=== PATIENT | female | born 1960 | race Caucasian/White ===

== ENCOUNTER → 2017-05-23 13:49 | Outpatient (CLI) | payer OTHER, SELFPAY ==
--- NOTE | 2017-05-23 13:57 | HPBI_ITS ---
MAMMOGRAPHY - BILATERAL SCREENING REASON FOR EXAM: Female, 56 years old. Routine annual screening examination. PERTINENT HISTORY: Non-contributory. TECHNIQUE: Digital bilateral breast sergio (3D mammographic acquisition) in the CC and MLO projections. 2-D mediolateral oblique (MLO) and craniocaudad (CC) views of both breasts were obtained. CAD: Full Field Digital Mammography with Computer Added Detection was performed. COMPARISON: Comparison is made with prior study dated November 13, 2015 and June 20, 2014. FINDINGS: Breast Composition: There are scattered areas of fibroglandular density. There are no dominant masses or suspicious calcifications. No other significant abnormalities are identified. There has been no significant change since the prior study. HPBI/SCREENING MAMM (CAD), BILAT IMPRESSION: Stable bilateral screening mammogram. Yearly follow-up mammogram recommended. (A) ASSESSMENT CATEGORY: BIRADS Category 1: Negative. A letter regarding these results will be sent to the patient by the facility within 30 days. Approximately 10% of breast cancers are not detected by mammography. A normal mammogram should not delay biopsy of a clinically suspicious abnormality. [id number] Electronically Signed: Carson Platt MD at 8:48 EST Tel [phone], Service support ,
== END ==
PROVIDERS: Family Provider Family Medicine; PCP Family Medicine; Visit Provider Family Medicine
DX: Z12.31 Encounter for screening mammogram for malignant neoplasm of breast (principal)
CPT/HCPCS: 77063; 77067

== ENCOUNTER → 2017-12-30 08:51 | Outpatient (CLI) | payer OTHER, SELFPAY ==
--- NOTE | 2017-12-30 08:57 | BD_ITS ---
STUDY: DUAL ENERGY X-RAY ABSORPTIOMETRY / DXA REASON FOR EXAM: Female, 57 years old. Postmenopausal screening TECHNIQUE: Bone Mineral Density (BMD) measurements of lumbar spine and bilateral hips were obtained. COMPARISON: None. FINDINGS: Lumbar Spine (L1-L4): g/cm2 (0.923) / T-score (-2.1) / Z-score (-1.3) Findings are suggestive of osteopenia with a moderate fracture risk. Left Femur Total: g/cm2 (0.749) / T-score (-2.1) / Z-score (-1.3) Left Femoral Neck: g/cm2 (0.726) / T-score (-2.2) / Z-score (-1.2) Right Femur Total: g/cm2 (0.898) / T-score (-0.9) / Z-score (-0.2) Right Femoral Neck: g/cm2 (0.846) / T-score (-1.4) / Z-score (-0.3) BD/Dexa Bone Density Study IMPRESSION: The patient is considered osteopenic as outlined below according to World Emmanuel Organization (WHO) criteria with a moderate fracture risk. Reference Information: The T-score is the number of standard deviations above or below the standard which is normal for young adults at their peak bone mineral density. The World Health Organization (WHO) interprets the T-scores as follows: Above -1 Normal bone density Between -1 and -2.5 Osteopenia Equal to / or below -2.5 Osteoporosis As a practical clinical guideline, osteopenia may be graded as follows: Mild -1 through -1.5 Moderate -1.6 through -2.0 Severe -2.1 through -2.4 The Z-score is the number of standard deviations above or below age-matched controls. A Z-score of less than -1.5 would be considered abnormal. References: 1. NIH Osteoporosis and Related Bone Diseases http://www.osteo.org 2. International Society for Clinical Densitometry http://www.iscd.org 3. National Osteoporosis Foundation http://www.nof.org Electronically Signed: Riley Martin MD at 8:44 EDT , Service support ,
== END ==
PROVIDERS: Family Provider Family Medicine; PCP Family Medicine; Visit Provider Family Medicine
DX: Z13.228 Encounter for screening for other metabolic disorders (principal)
CPT/HCPCS: 77080

== ENCOUNTER → 2018-01-08 09:19 | Outpatient (CLI) | payer OTHER, SELFPAY ==
[2018-01-08 10:29] LABS: Anion Gap 7 (5-15); BUN 15 mg/dL (7-18); BUN/Creat Ratio 20.1 RATIO (10-20); Calcium,Total 8.7 mg/dL (8.5-10.1); Chloride 107 mmol/L (98-107); Creatinine, Serum 0.75 mg/dL (0.55-1.02); EST Glomerular Filtration Rate 85 mL/min (>60); Est Glom Filt Rate - Afr Amer 103 mL/min (>60); Glucose 84 mg/dL (74-106); Potassium 3.7 mmol/L (3.5-5.1); Sodium Level 141 mmol/L (136-145)
[2018-01-08 10:41] LABS: Vitamin D,25 Hydroxy 15.9 ng/mL (29.95-100.01)
== END ==
PROVIDERS: Family Provider Family Medicine; PCP Family Medicine; Visit Provider Family Medicine
DX: M85.80 Other specified disorders of bone density and structure, unspecified site (principal)
CPT/HCPCS: 36415; 80048; 82306

== ENCOUNTER → 2018-07-07 16:07 | Outpatient (CLI) | payer OTHER, SELFPAY ==
[2018-07-10 13:19] LABS: HPV Reflexed? NOT INDICATED
== END ==
LOC: MFPLAB 16:09 → LABSPEC 16:10
PROVIDERS: Family Provider Family Medicine; PCP Family Medicine; Referring Provider Family Medicine; Visit Provider Family Medicine
DX: Z01.419 Encounter for gynecological examination (general) (routine) without abnormal findings (principal)
CPT/HCPCS: 88175; G0145

== ENCOUNTER → 2018-11-24 14:19 | Outpatient (CLI) | payer OTHER, SELFPAY ==
[2018-11-24 16:12] LABS: Vitamin D,25 Hydroxy 14.6 ng/mL (29.95-100.01)
== END ==
PROVIDERS: Family Provider Family Medicine; PCP Family Medicine; Referring Provider Family Medicine; Visit Provider Family Medicine
DX: E55.9 Vitamin D deficiency, unspecified (principal)
CPT/HCPCS: 36415; 82306

== ENCOUNTER → 2018-11-30 15:48 | Outpatient (CLI) | payer OTHER, SELFPAY ==
--- NOTE | 2018-11-30 15:49 | BI_ITS ---
MAMMOGRAPHY - BILATERAL SCREENING REASON FOR EXAM: Female, 58 years old. Routine annual screening examination. PERTINENT HISTORY: Non-contributory. TECHNIQUE: Digital bilateral breast anthony (3D mammographic acquisition) in the CC and MLO projections. 2-D mediolateral oblique (MLO) and craniocaudad (CC) views of both breasts were obtained. CAD: Full Field Digital Mammography with Computer Added Detection was performed. COMPARISON: Comparison is made with prior examination of May 23, 2017 and November 13, 2015. FINDINGS: Breast Composition: There are scattered areas of fibroglandular density. There are no dominant masses or suspicious calcifications. No other significant abnormalities are identified. There has been no significant change since the prior study. BI/SCREEN MAMM (CAD) W/ANTHONY BILAT IMPRESSION: Stable bilateral screening mammogram. Yearly follow-up mammogram recommended. (A) ASSESSMENT CATEGORY: BIRADS Category 1: Negative. A letter regarding these results will be sent to the patient by the facility within 30 days. Approximately 10% of breast cancers are not detected by mammography. A normal mammogram should not delay biopsy of a clinically suspicious abnormality. [id number] Electronically Signed: Carson Platt, at 8:30 EDT , Service support ,
== END ==
PROVIDERS: Family Provider Family Medicine; PCP Family Medicine; Referring Provider Family Medicine; Visit Provider Family Medicine
DX: Z12.31 Encounter for screening mammogram for malignant neoplasm of breast (principal)
CPT/HCPCS: 77063; 77067

== ENCOUNTER → 2019-02-05 14:22 | Outpatient (CLI) | payer OTHER, SELFPAY ==
--- NOTE | 2019-02-05 14:38 | US_ITS ---
STUDY: ULTRASOUND BREAST - LEFT REASON FOR EXAM: Female, 58 years old. Left breast pain. TECHNIQUE: Axial and longitudinal images of the LEFT breast were performed with a high resolution ultrasound transducer. # OF IMAGES: 59 COMPARISON: Comparison is made with prior mammogram dated November 30, 2018. FINDINGS: LEFT Breast: The entire left breast was examined by ultrasound. There is homogeneous fibroglandular tissue. No sonographic abnormality is seen. US/Breast Complete Unilateral IMPRESSION: No sonographic abnormality is seen. ASSESSMENT CATEGORY: BIRADS Category 1: Negative. A letter regarding these results will be sent to the patient by the facility within 30 days. Electronically Signed: Carson Platt, at 15:42 EST , Service support ,
== END ==
PROVIDERS: Family Provider Family Medicine; PCP Family Medicine; Referring Provider Family Medicine; Visit Provider Family Medicine
DX: N64.4 Mastodynia (principal)
CPT/HCPCS: 76641

== ENCOUNTER → 2019-10-08 | Outpatient (CLI) | payer OTHER, SELFPAY ==
[2019-08-06 14:38] VITALS: BMI 24.4
[2019-10-08 17:52] LABS: Anion Gap 4 (5-15); BUN 20 mg/dL (7-18); Calcium,Total 9.4 mg/dL (8.5-10.1); Chloride 107 mmol/L (98-107); Cholesterol 230 mg/dL (200); Creatinine, Serum 0.69 mg/dL (0.55-1.02); EST Glomerular Filtration Rate 93 mL/min (>60); Est Glom Filt Rate - Afr Amer 112 mL/min (>60); Glucose 103 mg/dL (74-106); High Density Lipoprotein 65 mg/dL; Potassium 3.4 mmol/L (3.5-5.1); Sodium Level 139 mmol/L (136-145); Triglycerides 126 mg/dL; Very Low Density Lipoprotein 25 mg/dL (5-40)
[2019-10-08 17:57] LABS: Vitamin D,25 Hydroxy 26.5 ng/mL
== END | disposition home or self-care (01) ==
LOC: MFPLAB 15:20
PROVIDERS: PCP Family Medicine; Visit Provider Family Medicine
DX: I10 Essential (primary) hypertension (principal); E55.9 Vitamin D deficiency, unspecified
CPT/HCPCS: 36415; 80048; 80061; 82306

== ENCOUNTER 2019-11-02 06:45 | Day surgery (SDC) | payer OTHER, SELFPAY ==
[2019-08-06 14:38] VITALS: BMI 24.4
[2019-10-18 10:45] VITALS: BMI 24.4
--- NOTE | 2019-10-27 14:50 | EKG12_ITS ---
Test Reason : PRE OP Blood Pressure : / mmHG Vent. Rate : 067 BPM Atrial Rate : 067 BPM P-R Int : 148 ms QRS Dur : 092 ms QT Int : 422 ms P-R-T Axes : 073 052 064 degrees QTc Int : 445 ms Normal sinus rhythm Nonspecific ST abnormality Abnormal ECG Confirmed by RENETTA GRAY, DARIAN ([id number]), commissioning editor CHIQUIS HASSAN ([id number]) on 11/01/2019 9:23:38 AM Referred By: Sonia Zapata Confirmed By:DARIAN JACKSON MD
[2019-10-27 15:36] LABS: Hematocrit 43.3 % (37-47); Hemoglobin 14.4 g/dL (12.0-15.0); Mean Corp Hgb Conc 33.3 g/dL (32-36); Mean Corpuscular Volume 93.1 fL (81-99); Mean Platelet Vol. 12.5 fl (6.2-12.0); Platelet Count 206 K/mm3 (150-450); RBC Distribution Width CV 12.1 % (11.6-14.6); RBC Distribution Width SD 41.4 fl (35.1-43.9); Red Blood Count 4.65 M/mm3 (4.2-5.4); White Blood Count 9.3 K/mm3 (4.4-11.0)
[2019-10-27 16:04] LABS: Anion Gap 4 (5-15); BUN 14 mg/dL (7-18); BUN/Creat Ratio 19.9 RATIO (10-20); Calcium,Total 9.5 mg/dL (8.5-10.1); Chloride 109 mmol/L (98-107); EST Glomerular Filtration Rate 91 mL/min (>60); Est Glom Filt Rate - Afr Amer 110 mL/min (>60); Glucose 92 mg/dL (74-106); Potassium 3.8 mmol/L (3.5-5.1); Sodium Level 140 mmol/L (136-145)
[2019-10-27 16:08] LABS: Magnesium 2.4 mg/dL (1.6-2.6)
--- NOTE | 2019-11-01 06:40 | PCM.HPOB.BLA ---
- Problem List (1) Perineal insufficiency Status: Acute Comment: urogyn consult (2) Uterovaginal prolapse, incomplete Status: Acute Comment: plan TVH BS combo case with urogyn, Caleb. 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 Sonia Zapata MD) Smoking Status: Never smoker alcohol intake: current alcohol intake frequency: holidays/special occasions only substance use type: does not use caffeine: Yes what type of physical activity do you participate in: none seatbelt use: always do you feel safe at home: Yes additional social history: Caleb- retired Patient works at [employer] pre op: Details: SHERLEY KILLIAN is a 58 year old who presents for uterovaginal prolapse. Female Reproductive History Questions: Metorrhagia: No, Sexually active: Yes, Dyspareunia: No Menopausal Symptoms: No hot flashes, No night sweats, No difficulty concentrating, No change in libido Pregancy History 5 Elective abortions Hx Para 4 Spontaneous abortions Hx # Term Pregnancies Ectopic pregnancies Hx # Pregnancies Multiple births # of living children Past Pregnancies Del. Date Name GA/Weeks Outcome Route Bth Weight Infant Gen Labor Lgth Anesthesia Del Locatn Provider FOB Unknown 1991 Marino Unknown 1995 Dea Unknown 1999 Sveta Unknown 2004 Will ROS Const Constitutional: Denies fatigue, fever(s), headache(s), increased appetite, poor appetite, night sweats, weight gain or weight loss ENT ENT: Reports dizziness (last 3 days, recently started on bp medicine.); denies dry mouth Cardio Card: Denies chest pain Resp Resp: Denies cough or dyspnea GI GI: Reports as per HPI; denies abdominal pain, constipation, nausea or vomiting : Reports as per HPI and urinary urgency; denies difficulty urinating, painful urination, hot flashes, pelvic pain, urinary frequency, urinary incontinence, urinary hesitancy, vaginal discharge, vaginal dryness, vaginal odor or vaginal itching Musc Musc: Denies joint pain, back pain or muscle weakness Skin Skin/Breast: Denies hair loss, change in hair, dry skin, breast lump, breast pain or breast skin changes Neuro Neuro: Reports dizziness (last 3 days, recently started on bp medicine.) Psych Psych: Denies anxiety, change in sex drive, depression or difficulty concentrating Endo Endo: Denies cold intolerance, excessive sweating, heat intolerance or increased thirst Adam/Lymph Hematologic/Lymphatic: Denies easy bleeding, Denies easy bruising, Denies enlarged lymph nodes Exam Const General: cooperative, healthy appearing, comfortable, no acute distress, well developed Nutritional Appearance: average body habitus Orientation: alert [facility] Head: normal to inspection, normocephalic Ears: hearing grossly normal bilaterally, external ears normal Nose: external nose normal, nares normal Face and sinus: normal facial exam Neck Neck: normal visual inspection, no lymphadenopathy, trachea midline Thyroid: thyroid normal Chest Chest palpation & inspection: normal inspection of the chest Resp Effort & Inspection: normal respiratory effort Cardio Rate: regular rate Rhythm: regular rhythm GI Inspection: normal to inspection, non-distended Palpation: soft, no hepatosplenomegaly General: bladder normal to palpation External Female Exam: abnormal external appearance (perineal body disrupted by scarring from previous laceration), normal appearance of the urethra Urethra: normal appearance of the urethra Speculum Exam - Vagina: abnormal appearance of the vagina (scarring from repair), normal vaginal discharge Speculum Exam - Cervix: normal appearance of the cervix, nontender Bimanual Exam- Vagina & Uterus: bladder normal to palpation, No cervical tenderness Bimanual Exam- Adnexa, other: normal adnexae, adnexae mobile, no adnexal masses, rectocele, cystocele, vaginal apex descent Pelvic Support: cystocele, rectocele, vaginal apex descent Musc Cervical Spine: other Other: gross motor intact no deficits, full bilateral strength Skin General: no rashes or lesions noted Neuro General: alert, awake, moves all extremities, no focal motor deficits Motor: muscle tone normal throughout Extrem General: normal to inspection, no pedal edema Psych Appearance: grossly normal Mental Status: mental status grossly normal Affect: normal affect Speech and Movement: speech and movement normal Assessment & Plan Problems 1. Perineal insufficiency K45.8 urogyn consult 2. Uterovaginal prolapse, incomplete N81.2 plan TVH BS combo case with urogyn Plan After discussing the patient's diagnosis and treatment plan options, patient wishes to proceed with surgical management. I have discussed with the patient the risks, benefits, and alternatives of the procedure which include but are not limited to risks of anesthesia, bleeding, infection, possible damage to bowel, bladder, or surrounding vasculature which could lead to additional surgery to evaluate any complications. Patient agrees to procedure and wishes to proceed. ACOG/uptodate references given for additional information regarding procedure. Coding Level of Care Code No Charge Diagnoses Perineal insufficiency K45.8 Uterovaginal prolapse, incomplete N81.2 UPDATE- I have seen the patient and performed any clinically relevant updates to the history and physical exam. Sonia Zapata MD
[2019-11-02] VITALS (14 sets, daily range): BP systolic 93–142; BP diastolic 57–95; PULSE 51–82; RESP 14–16; TEMP 36–37.1; O2SAT 96–100; BMI 21.7
[2019-11-02] MEDS: Gabapentin 600 MG Tablet PO (07:38)
[2019-11-02] MEDS: Acetaminophen 500 MG Tablet 1000 MG PO ×3 (07:38→23:55)
[2019-11-02] MEDS: Scopolamine 1mg/72hr Patch 1 PATCH TRANSDERM. (07:39)
[2019-11-02] MEDS: Enoxaparin 40 MG/0.4 ML Syringe SC (07:44)
[2019-11-02] MEDS: dexAMETHasone 10 MG/ML Vial 8 MG IV (07:45)
[2019-11-02 08:16] LABS: Bedside Glucose 123 mg/dL (70-110)
[2019-11-02] MEDS: Lactated Ringers 1,000 ML 40 ML IV (08:19)
[2019-11-02] MEDS: Lactated Ringers 1,000 ML 70 ML IV ×2 (08:25→16:25)
--- NOTE | 2019-11-02 08:45 | HYST_PTH ---
PATIENT: SHERLEY KILLIAN LOC: [facility] U#:[id number] AGE/SX: 59/F ROOM: RE11/02/[address]: Dr. Sonia Zapata MD : [id number] BED: DIS: 11/03/2019 SPEC #: [id number] RECD: 11/02/19 13:48 STATUS: COOPER RICA #: [id number] TOM: 11/02/19 08:[address]: Sonia Zapata DEPT: SURGICAL PATHOLOGY RECD BY: Channing Alvarado ENTERED: 11/03/19 08:27 SP TYPE: HYSTERECT OTHR DR: MD Dr. Adan Mills MD Tissues: Uterus, NOS Procedures: Surgery Specimen Level V HEADER OPERATION: ERAS, vaginal hysterectomy, bilateral salpingectomy PRE-OP DIAGNOSIS: Perineal insufficiency, uterovaginal prolapse TISSUE SUBMITTED: Uterus and bilateral fallopian tubes MICROSCOPIC DIAGNOSIS Uterus, hysterectomy: Cervix - mild chronic inflammation. Endometrium - inactive endometrium. Myometrium - leiomyomas and superficial adenomyosis. Right fallopian tube- no pathologic change. Right fallopian tube- benign paratubal cyst. AM:aydee 11/04/19 COMMENT Case has been reviewed in consultation with Dr. Briones who concurs with the above diagnosis. IDC:SJ MICROSCOPIC DESCRIPTION Slides are reviewed. GROSS DESCRIPTION Received in fixative is one container labeled with the patient's name and designated uterus and bilateral fallopian tubes. The specimen consists of a hysterectomy specimen consisting of uterus with cervix and detached bilateral fallopian tubes. The uterus with cervix weighs 88 gm and measures 9 x 6 x 4.5 cm. The serosal surface is casas, glistening. The ectocervical mucosa is unremarkable. The external os is slit-like in contour. The endocervical canal measures 3 cm in length and the endocervical mucosa is casas, glistening and unremarkable. The triangular endometrial cavity measures 4 cm in length and 1.7 cm in width. The endometrium is casas, glistening without any mass lesion and measures 0.1 cm in thickness. Sections of the uterine wall reveal a casas, nodular mass measuring 0.7 cm in greatest dimension. The uterine wall measures up to 2 cm in thickness. The fallopian tubes are not identified as right or left. One of the fallopian tubes measure 4.5 cm in length and 0.5 cm in diameter. The fimbrial end is identified. Sections reveal unremarkable cut surfaces. The second fallopian tube measures 5 cm in length and 0.6?cm in diameter. The fimbrial end is identified. A paratubal cyst is noted measuring 2 cm in greatest dimension. It is filled with clear fluid. The cyst wall is smooth. Hydraulic Modeling Engineer sections are submitted in?nine cassettes as follows: 1 - anterior cervix, 2 - posterior cervix, 3 & 4 - anterior uterine wall, 5?&?6??posterior uterine wall, 7 - intramural nodular mass, 8 - one fallopian tube, 9 - second fallopian tube and paratubal cyst. / DAYANA:aydee 11/03/19 TC:1 CPT: 38945
--- NOTE | 2019-11-02 09:53 | PCM.OPRPT ---
Problem List (1) Perineal insufficiency Status: Acute Comment: urogyn consult (2) Uterovaginal prolapse, incomplete Status: Acute Comment: plan TVH BS combo case with urogyn, Caleb. Report of Operation Date of Procedure: 11/02/19 Pre-Operative Diagnosis: prolapse Post-Operative Diagnosis: same Surgery/Procedure Performed:: tvh bs Description of Surgical Findings:: pelvic prolapse fancy needleworker: Natalia Ramos Type of Anesthesia:: General, Local Special Medications: none Specimen's removed: uterus tubes Drains: frazier Estimated Blood Loss (mL): 50 Fluids Replaced: crystalloid Description of Procedure: Patient was taken to the operating room and was placed under general anesthesia was prepped and draped in normal sterile fashion in the dorsal lithotomy position. Preoperative antibiotics and SCDs and Frazier catheter was placed inside the bladder. Weighted speculum was placed in the vagina and the anterior and posterior lip of the cervix was grasped with 2 Елена clamps and circumferentially injected with dilute vasopressin. A circumferential incision was made with a scalpel and the posterior cul-de-sac was entered into sharply and a longneck speculum was placed. The anterior cul-de-sac was also dissected down and entered into sharply and the uterosacral ligaments were clamped cut and suture ligated bilaterally followed by the cardinal ligaments which were Clamped cut and suture ligated bilaterally with 0 Monocryl. The uterus serially descended and progressive bites were taken bilaterally up to the level of the utero-ovarian ligament bilaterally which was clamped transected and double ligated with 0 Monocryl suture and 0 Vicryl free tie. Bilateral fallopian tubes and ovaries were well visualized and noted be within normal limits and the bilateral fallopian tubes were transected across the base with a Leidy clamp and removed and sutured with 0 Vicryl suture. Excellent hemostasis was noted. Excellent hemostasis was noted. All instruments removed from the vagina clear urine was noted at the end of the procedure. see dr auguste's dictation for additional details. Grafts/Implants Used: see urogyn note - Complications none - Admit VTE Documentation VTE Present on Admission: No VTE Mechan Device Prophylaxis: SCD's VTE Pharm Prophylaxis ordered?: Yes Multi Select Codes - Urinary/Genital Urinary/Genital CPT Codes: 53972 TVH+BS/O <250gr uterus
[2019-11-02 10:14] LABS: Probe Check PASS; Specimen Processing Control PASS
--- NOTE | 2019-11-02 11:13 | DCINST_ITS ---
Discharge Diet: No Restrictions Discharge Activity: Return to Normal Activity, May Not Drive, May Shower May resume sexual activity in: 6-8 weeks Call your doctor if your incision/area has: Continuous Slow Oozing, Sudden Increased Bleeding, Increased Pain/ Swelling, Increased Redness, Foul Smelling Discharge Call your doctor if you observe: Fever of 101 or Higher, Inability to urinate, Inability to have a bowel movement, Using more than one pad per hour Allergies/Adverse Reactions: Allergies No Known Allergies Allergy (Verified 10/26/19 08:19) Medications to take at Discharge loratadine 10 mg tablet 10 mg PO DAILY 02/16/19 lisinopril 5 mg tablet 2.5 mg PO DAILY 10/18/19 Cod Liver Oil 1 ea PO DAILY 10/26/19 Naproxen [Naprosyn] 250 - 500 mg PO Q8H PRN PRN #30 tab 11/02/19 Oxycodone HCl/Acetaminophen [Percocet 5-325] 1 - 2 tab PO Q6H PRN PRN 7 Days #15 tab 11/02/19 The following prescriptions were given: Naproxen [Naprosyn] 250 - 500 mg PO Q8H PRN PRN #30 tab PRN Reason: MILD PAIN Transmission Status: Received by [facility] #[id number] Oxycodone HCl/Acetaminophen [Percocet 5-325] 1 - 2 tab PO Q6H PRN PRN 7 Days #15 tab PRN Reason: Pain Transmission Status: Received by [id number] Primary Care Physician: Adan Meza MD [Primary Care Provider] - Test Results: Test results from this visit will be discussed in further detail at your follow- up appointment, if applicable. Please Follow Up With: Sonia Zapata MD - [phone]
[2019-11-02] MEDS: Cefazolin 2 GM in 0.9% Normal Saline 100 ML IV (11:22)
[2019-11-02] MEDS: Vasopressin 20 UNITS/ML Vial (12:50)
--- NOTE | 2019-11-02 13:17 | PCM.OPRPT ---
Problem List (1) Perineal insufficiency Status: Acute Comment: urogyn consult (2) Uterovaginal prolapse, incomplete Status: Acute Comment: plan TVH BS combo case with urogyn, Caleb. Report of Operation Date of Procedure: 11/02/19 Pre-Operative Diagnosis: Incomplete uterovaginal prolapse with perineal insufficiency Post-Operative Diagnosis: Same Surgery/Procedure Performed:: Anterior repair, posterior repair with perineoplasty, cystoscopy with bilateral ureteral catheterization Type of Anesthesia:: General Specimen's removed: None Estimated Blood Loss (mL): 25 cc Description of Procedure: The patient is a 59-year-old female with pelvic organ prolapse who presented to the office for evaluation and management. She underwent physical exam, office cystoscopy and urodynamics prior to intervention and informed consent was obtained including a discussion of the risks of COVID-19. She was taken to the operating room and placed on the operating room table. Anesthesia monitored the head, neck, airway, IV access and vital signs throughout the case. Once anesthesia was appropriately ministered the patient was placed into dorsal lithotomy position was prepped and draped in usual sterile fashion. At this time Dr. Zapata removed the uterus etc. and closed the vaginal cuff. The anterior vaginal wall had a mild defect. The posterior wall had a more significant defect including decreased perineal support. At this time the anterior vaginal wall was isolated and injected submucosally with vasopressin for hydrostatic dissection and hemostatic control. A midline incision was made approximately 2 cm in length and sharp and blunt dissection was performed on either side until the pubocervical fascia was identified. This was brought together in a 2 layer closure with 2-0 Vicryl suture. The midline incision was then closed with running interlocking 2-0 Vicryl. At this time the posterior wall was isolated and injected with vasopressin as well. A midline incision was made and sharp and blunt dissection was performed on either side until the perineal body was dissected and the rectovaginal fascia was identified. The perineal body was brought together in several layers with 2-0 Vicryl interrupted suture making the area symmetrically supported. The rectovaginal fascia was then brought together also in a 2 layer closure with interrupted suture. The midline incision was closed with running interlocking 2-0 Vicryl. At this time a cystourethroscopy was performed. This was done through the urethra. Bilateral ureteral orifices were identified on the area of the trigone. The anterior defect was clearly observed to be repaired. The right ureteral orifice had significant urine output. The left ureter had less urine output and the decision was made to insert a whistle-tip catheter for evaluation of patency. The whistle-tip catheter was unable to be passed in either ureter likely secondary to the angle. A 0.035 Glidewire was passed on each side without difficulty. The patient's bladder showed no evidence of foreign body or injury in the remainder of the mucosa. The cystoscope was removed and the Miller catheter was replaced. The vagina was packed with Premarin cream and vaginal packing. The patient was awakened and taken to the recovery room in good condition. There were no complications during the procedure. Grafts/Implants Used: None - Complications None - Admit VTE Documentation VTE Present on Admission: Yes VTE Mechan Device Prophylaxis: SCD's VTE Pharm Prophylaxis ordered?: Yes
--- NOTE | 2019-11-02 13:24 | DCINST_ITS ---
Discharge Diet: No Restrictions Discharge Activity: May Not Drive, May Shower May resume sexual activity in: 8 weeks Additional Activity Instructions:: No strenuous activity or exercise, no tub bathing, swimming or hot tubs. No lifting over 5 pounds, no vacuuming. No sexual activity. Continue use of vaginal estrogen cream as prior to surgery. Call your doctor if your incision/area has: Continuous Slow Oozing, Sudden Increased Bleeding, Increased Pain/ Swelling, Increased Redness, Foul Smelling Discharge Call your doctor if you observe: Fever of 101 or Higher, Inability to urinate, Inability to have a bowel movement, Using more than one pad per hour Allergies/Adverse Reactions: Allergies No Known Allergies Allergy (Verified 10/26/19 08:19) Medications to take at Discharge loratadine 10 mg tablet 10 mg PO DAILY 02/16/19 lisinopril 5 mg tablet 2.5 mg PO DAILY 10/18/19 Cod Liver Oil 1 ea PO DAILY 10/26/19 Cephalexin [Keflex] 500 mg PO Q12 3 Days #6 cap 11/02/19 Naproxen [Naprosyn] 250 - 500 mg PO Q8H PRN PRN #30 tab 11/02/19 Oxycodone HCl/Acetaminophen [Percocet 5-325] 1 - 2 tab PO Q6H PRN PRN 7 Days #15 tab 11/02/19 The following prescriptions were given: Cephalexin [Keflex] 500 mg PO Q12 3 Days #6 cap Transmission Status: Pending to [id number] Naproxen [Naprosyn] 250 - 500 mg PO Q8H PRN PRN #30 tab PRN Reason: MILD PAIN Transmission Status: Received by [id number] Oxycodone HCl/Acetaminophen [Percocet 5-325] 1 - 2 tab PO Q6H PRN PRN 7 Days #15 tab PRN Reason: Pain Transmission Status: Received by [id number] Primary Care Physician: Adan Meza MD [Primary Care Provider] - Test Results: Test results from this visit will be discussed in further detail at your follow- up appointment, if applicable. Please Follow Up With: Cara Snow MD When: call office for appt. Proposed Discharge Date: 11/03/19
[2019-11-02] MEDS: Ketorolac 30 MG/ML Syringe IV ×2 (17:45→23:55)
[2019-11-02] MEDS: Cephalexin 500 MG Capsule PO (21:42)
[2019-11-02] MEDS: Docusate Sodium 100 MG Capsule PO (21:43)
[2019-11-03] MEDS: Ketorolac 30 MG/ML Syringe IV ×2 (04:54→11:30)
[2019-11-03] MEDS: Lactated Ringers 1,000 ML 70 ML IV (04:54)
[2019-11-03] MEDS: Acetaminophen 500 MG Tablet 1000 MG PO ×2 (04:54→11:30)
[2019-11-03 06:29] LABS: Hematocrit 36.8 % (37-47); Hemoglobin 11.7 g/dL (12.0-15.0); Mean Corp Hgb Conc 31.8 g/dL (32-36); Mean Corpuscular Hgb 30.3 pg (27.0-32.0); Mean Corpuscular Volume 95.3 fL (81-99); Mean Platelet Vol. 12.3 fl (6.2-12.0); Platelet Count 168 K/mm3 (150-450); RBC Distribution Width CV 12.5 % (11.6-14.6); RBC Distribution Width SD 43.4 fl (35.1-43.9); Red Blood Count 3.86 M/mm3 (4.2-5.4); White Blood Count 14.6 K/mm3 (4.4-11.0)
[2019-11-03 06:40] VITALS: O2SAT 97
[2019-11-03 07:32] VITALS: BP 122/71; PULSE 54; RESP 18; TEMP 36.7; O2SAT 99
--- NOTE | 2019-11-03 08:20 | PCM.PN.BLA ---
Progress Note Patient is up in bed. Tolerating PO. Walking halls. No nausea, no flatus yet. Happy to have catheter removed this morning. AF vitals are good. Abdomen soft. Miller draining clear yellow. Catheter and packing removed without an issue. SCD's in place. A/P POD#1 hysterectomy, pelvic reconstruction trial of void home later today with or without catheter continue post-op restrictions and estrogen cream STROKE Vital Signs/Narrative: Vital Signs Pulse Ox 11/03/19 06:40 97
[2019-11-03] MEDS: Cephalexin 500 MG Capsule PO (08:26)
[2019-11-03] MEDS: Docusate Sodium 100 MG Capsule PO (08:26)
[2019-11-03] MEDS: Enoxaparin 40 MG/0.4 ML Syringe SC (08:26)
[2019-11-03] MEDS: 0.9% Saline Lock 10 ML Syringe IV (11:32)
== END 2019-11-03 11:50 | disposition home or self-care (01) ==
LOC: SDC 06:46 → AC 06:47 → MS3 11-03 09:34
PROVIDERS: Anesthesiology; Urology; PCP Family Medicine; Referring Provider Obstetrics & Gynecology; Visit Provider Obstetrics & Gynecology
PROC: (CPT 58260; principal; 2019-11-02 08:25)
PROC: (CPT 57260; 2019-11-02 08:25)
DX: D25.9 Leiomyoma of uterus, unspecified (principal); N81.2 Incomplete uterovaginal prolapse; N80.0 Endometriosis of uterus; N83.8 Other noninflammatory disorders of ovary, fallopian tube and broad ligament; N72 Inflammatory disease of cervix uteri; N95.2 Postmenopausal atrophic vaginitis; N39.41 Urge incontinence; N94.10 Unspecified dyspareunia; Z79.899 Other long term (current) drug therapy
CPT/HCPCS: 56810; 57260; 58262; 36415; 80048; 82962; 83735; 85027; 86850; 86900; 86901; 87635; 88307; 93005; 94762; 94799; 99251; J7120; A4216; C1758; C1769; G0463; J2405; U0003

== ENCOUNTER 2020-06-06 09:07 | Outpatient (RCR) | payer OTHER, SELFPAY ==
[2019-11-15 15:05] VITALS: BMI 22.0
[2020-06-06] MEDS: COVID-19 VACC, MRNA(PFIZER)/PF 30 MCG/0.3 ML SYRINGE IM (16:56)
[2020-06-27] MEDS: COVID-19 VACC, MRNA(PFIZER)/PF 30 MCG/0.3 ML SYRINGE IM (16:28)
== END 2020-08-29 23:59 ==
LOC: IMMUN 09:07
PROVIDERS: PCP Family Medicine; Visit Provider Family Medicine
DX: Z23 Encounter for immunization (principal)
CPT/HCPCS: 0001A; 0002A; 91300

== ENCOUNTER 2021-03-15 16:37 | Emergency (ER) | payer OTHER, SELFPAY ==
[2021-03-15 16:38] VITALS: BP 168/100; PULSE 95; RESP 16; TEMP 37.2; O2SAT 100; BMI 23.3
--- NOTE | 2021-03-15 16:49 | CT_ITS ---
We are attempting to reach an attending provider to discuss findings. An addendum with communication details will be sent when the communication is complete. STUDY: CT ABDOMEN AND PELVIS WITH CONTRAST REASON FOR EXAM: Female, 60 years old. LLQ abdominal pain RADIATION DOSAGE (If Supplied By Facility): CTDIvol = ( 9.26 ) mGy, DLP = ( 420.68 ) mGycm TECHNIQUE: Transaxial images were obtained from the dome of the diaphragm to the symphysis pubis without oral contrast. IV 100mL Isovue-370 was administered. Sagittal and coronal images were reconstructed. N Individualized dose optimization techniques were used for this CT. COMPARISON: 04/24/2010 FINDINGS: The visualized lung bases are unremarkable. The visualized portions of the heart are within normal limits. Liver is normal size. There are multiple scattered cysts of varying sizes. Bile ducts are nondilated.. Normal gallbladder and extrahepatic biliary system. Normal spleen. Normal pancreas. Normal bilateral adrenal glands. No evidence for renal obstruction. Tiny cortical cyst in left kidney Normal visualized stomach. Normal small intestine. . There are scattered diverticular changes. There is focal concentric thickening of the hutton of the mid descending colon with stranding in the fat consistent with acute diverticulitis. There is no peridiverticular abscess.. The appendix is visualized and appears normal. Normal abdominal aorta. Normal inferior vena cava. Normal retroperitoneum. Incompletely distended thick-walled bladder likely of no significance. Uterus not visualized consistent with hysterectomy Normal abdominal wall. Normal osseous structures. CT/Abdomen/Pelvis W IV Cont ONLY IMPRESSION: Findings consistent with acute diverticulitis of the descending colon without evidence for peridiverticular abscess. Multiple scattered hepatic cysts.. Tiny left renal cyst Electronically Signed: Milton Marie MD at 18:15 EST , Service support ,
--- NOTE | 2021-03-15 16:50 | EDS_ITS ---
HPI HPI - GI History of Present Illness Chief Complaint: Abd Pain Narrative Narrative: 60-year-old female presenting with left lower quadrant abdominal pain. She states that this started yesterday. She states that at times the pain is difficult to talk through and she rates this is an 8. Other times she feels cramping which is mild. Patient denies nausea, vomiting diarrhea. She states that she has not felt like eating today and that she had chills. Patient denies urinary symptoms. She also admits to a temperature of 99.0 Fahrenheit at home today. PFSH PFSH Home Medications loratadine 10 mg tablet 10 mg PO DAILY 02/16/19 [History Last Taken Unknown] lisinopril 5 mg tablet 2.5 mg PO DAILY 10/18/19 [History Last Taken 11/02/19 04:55 2.5 MG] cod liver oil 1 ea PO DAILY 10/26/19 [History Last Taken Unknown] amoxicillin-pot clavulanate [Augmentin] 1 tab PO BID #20 tab 03/15/21 [Rx Last Taken Unknown] Allergy/AdvReac Type Severity Reaction Status Date / Time No Known Allergies Allergy Verified 03/15/21 16:41 Family History Father Heart disease Mother Heart disease Surgical History History of cystoscopy History of total vaginal hysterectomy (TVH) Hx of bilateral salpingectomy Social History (Updated 11/15/19 @ 15:38 by Jina Bolaños NP, [employer]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 [facility] [place] ED Constitutional Constitutional ED: Reports chills; Denies fever(s) ENT ENT ED: Denies rhinorrhea or sore throat Cardiovascular Cardiovascular: Denies chest pain or palpitations Respiratory/Chest Respiratory/Chest: Denies cough or dyspnea Gastrointestinal Gastrointestinal: Reports abdominal pain; Denies constipation, diarrhea, nausea or vomiting Genitourinary Genitourinary ED: Denies dysuria or hematuria Musculoskeletal Musculoskeletal: Denies back pain, myalgias or neck pain Integumentary Denies rash Neurologic Neurologic: Denies headache(s) or paresthesias Psychiatric Psychiatric: Denies anxiety or depression EXAM Physical Exam Const Vital Signs: 03/15/21 16:38 03/15/21 18:48 Temperature 98.9 F Temperature Source Oral Pulse Rate 95 70 Respiratory Rate 16 18 Blood Pressure 168/100 H 169/90 H Blood Pressure Mean 122 Pulse Ox 100 94 Oxygen Delivery Method Room Air Positive well nourished General Appearance ED: NAD; Negative for pallor HEENT Reports moist mucous membranes normocephalic and atraumatic Eyes PERRL and EOMs intact bilaterally General Eye ED: Negative for pale conjunctiva or scleral icterus Resp normal respiratory effort and clear to auscultation bilaterally Cardio regular rate and regular rhythm GI non-distended Palpation: soft and tender LLQ Back/Spine no CVA tenderness Neuro CN's II-XII intact bilaterally and moves all extremities Sensorium / Orientation: alert, oriented to person, oriented to place and oriented to time Psych mental status grossly normal and thought process normal Skin General Skin Exam: Negative for jaundice or pallor Rashes: no rashes MDM MDM MDM Narrative Medical decision making narrative: Patient presenting with left lower quadrant pain. Abdomen is nonperitoneal on examination. Blood work-up shows a slight leukocytosis at 12.0. Hemoglobin hematocrit are stable. Renal function electrolytes are normal. LFTs are also normal. Urinalysis negative for infection. I did obtain a CT of the abdomen pelvis out of concern for diverticulitis and the radiologist did call me and reported that she had an acute on complex diverticulitis. Patient declined analgesia in the ER. I believe she is a good candidate for home Augmentin. She is given her first dose in the ER. She is given return precautions. She was given referral for Dr. Daugherty for follow-up as needed. Impression: 1. Acute diverticulitis Lab Data Attestation: I reviewed the patient's lab results. Labs: Laboratory Results - last 24 hr 03/15/21 03/15/21 03/15/21 16:58 16:58 17:10 WBC 12.0 H RBC 4.57 Hgb 14.2 Hct 42.5 MCV 93.0 MCH 31.1 MCHC 33.4 RDW Std Deviation 43.0 RDW Coeff of Albina 12.5 Plt Count 234 MPV 11.2 Immature Gran % (Auto) 0.200 Neut % (Auto) 77.6 H Lymph % (Auto) 14.8 L Alger % (Auto) 6.5 Eos % (Auto) 0.5 Baso % (Auto) 0.4 Absolute Neuts (auto) 9.3 H Absolute Lymphs (auto) 1.77 Nucleated RBC % 0 Sodium 141 Potassium 3.7 Chloride 105 Carbon Dioxide 29.0 Anion Gap 7 BUN 14 Creatinine 0.67 Estim Creat Clear Calc 84.64 Est GFR (MDRD) Af Amer 116 Est GFR (MDRD) Non-Af 96 BUN/Creatinine Ratio 20.9 H Glucose 101 Calcium 9.2 Total Bilirubin 0.60 AST 16 ALT 29 Alkaline Phosphatase 59 Total Protein 8.1 Albumin 4.1 Globulin 4.0 Albumin/Globulin Ratio 1.0 Urine Color Yellow Urine Clarity Sl. Cloudy Urine pH 5.0 Ur Specific Lusk 1.020 Urine Protein Negative Urine Glucose (UA) Normal Urine Ketones 5 H Urine Occult Blood 25 H Urine Nitrite Negative Urine Bilirubin Negative Urine Urobilinogen Normal Ur Leukocyte Esterase 25 H Urine RBC 0-5 SEEN Urine WBC 0-5 SEEN Ur Squamous Epith Cells 0-5 SEEN Urine Bacteria 0 SEEN Urine Mucus 0 SEEN Radiography Diagnostic Testing: Clinical Impression(s) from Imaging Studies Abdomen/Pelvis CT 03/15/21 16:49 IMPRESSION: Findings consistent with acute diverticulitis of the descending colon without evidence for peridiverticular abscess. Multiple scattered hepatic cysts.. Tiny left renal cyst Electronically Signed: Milton Marie MD at 18:15 EST , Service support , ADDENDUM: 03/15/21 1836 IMPRESSION: Findings consistent with acute diverticulitis of the descending colon without evidence for peridiverticular abscess. Multiple scattered hepatic cysts.. Tiny left renal cyst N.B. : The above Results were Read Back by Milton Marie MD to Dr Sanjeev MD, and understanding confirmed on 03/15/2021 18:29:14 (ET). Electronically Signed: Milton Marie MD at 18:15 EST , Service support , Discharge Plan Triage Chief Complaint: Abd Pain ED Provider: Dalton Pace Dx/Rx/DC Orders Instructions: ED Diverticulitis Prescriptions: New amoxicillin-pot clavulanate [Augmentin] 875-125 mg tablet 1 tab PO BID Qty: 20 RF: 0 No Action loratadine [Claritin] 10 mg tablet 10 mg PO DAILY RF: 0 lisinopril 5 mg tablet 2.5 mg PO DAILY RF: 0 cod liver oil 1 EACH capsule 1 ea PO DAILY RF: 0 Primary Care Provider: Fernando Egan Referrals: Wing Daugherty DO [STAFF PHYSICIAN] - As Needed Fernando Egan MD [Primary Care Provider] - Disposition Disposition: Home, Self Care Discharge Date/Time: 03/15/21 18:51
[2021-03-15 17:22] LABS: Absolute Lymphocyte Count 1.77 X10^3/uL (0.83-4.51); Absolute Neutrophil Count 9.3 X10^3/uL (2.0-7.7); Basophil# 0.05 X10^3/uL; Basophil% 0.4 % (0-1); Eosinophil# 0.06 X10^3/uL; Eosinophils% 0.5 % (0-5); Hematocrit 42.5 % (37-47); Hemoglobin 14.2 g/dL (12.0-15.0); Lymphocyte # 1.77 X10^3/ul (0.83-4.51); Lymphocyte % 14.8 % (19-41); Mean Corp Hgb Conc 33.4 g/dL (32-36); Mean Corpuscular Hgb 31.1 pg (27.0-32.0); Mean Platelet Vol. 11.2 fl (6.2-12.0); Monocyte# 0.78 X10^3/uL; Monocyte% 6.5 % (0-10); NRBC Flagged by Analyzer 0 % (0-5); Neutrophil # 9.28 X10^3/uL (2.7-7.7); Neutrophil % 77.6 % (47-70); Platelet Count 234 K/mm3 (150-450); RBC Distribution Width CV 12.5 % (11.6-14.6); Red Blood Count 4.57 M/mm3 (4.2-5.4)
[2021-03-15 17:23] LABS: Bacteria 0 SEEN /hpf (None Seen); Mucous, Urine 0 SEEN /hpf (<or=2+)
[2021-03-15 17:28] LABS: AST(SGOT) 16 U/L (15-37); Alanine Aminotransfer ALT/SGPT 29 U/L (13-56); Albumin, Serum 4.1 g/dL (3.2-5.0); Alkaline Phosphatase 59 U/L (45-117); Anion Gap 7 (5-15); BUN 14 mg/dL (7-18); BUN/Creat Ratio 20.9 RATIO (10-20); Calcium,Total 9.2 mg/dL (8.5-10.1); Chloride 105 mmol/L (98-107); Creatinine, Serum 0.67 mg/dL (0.55-1.02); EST Glomerular Filtration Rate 96 mL/min (>60); Est Glom Filt Rate - Afr Amer 116 mL/min (>60); Estimated Creatinine Clearance 84.64 ml/min; Glucose 101 mg/dL (74-106); Potassium 3.7 mmol/L (3.5-5.1); Protein, Total 8.1 g/dL (6.4-8.2); Sodium Level 141 mmol/L (136-145)
[2021-03-15 17:34] LABS: Color, Urine Yellow (Yellow); Glucose, Dipstick Normal (Normal); Ketone-Dipstick 5 mg/dl (Negative); Leukocyte Esterase-Dipstick 25 /ul (Negative); Nitrite-Dipstick Negative (Negative); Occult Blood-Urine 25 /ul (Negative); Protein-Dipstick Negative (Negative); Urine Bilirubin Dipstick Negative (Negative); Urine Clarity Sl. Cloudy (Clear); Urine Urobilinogen Normal (Normal)
[2021-03-15 17:49] LABS: Red Blood Cells-Urine 0-5 SEEN /hpf (0-5); Squamous Epithelial Cells - UA 0-5 SEEN /hpf (5-10); White Blood Cells 0-5 SEEN /hpf (0-5)
[2021-03-15 18:48] VITALS: BP 169/90; PULSE 70; RESP 18; O2SAT 94
== END 2021-03-15 18:51 | disposition home or self-care (01) ==
PROVIDERS: Emergency Provider Student in an Organized Health Care Education/Training Program; PCP Family Medicine
DX: K57.32 Diverticulitis of large intestine without perforation or abscess without bleeding (principal)
CPT/HCPCS: 74177; 80053; 81001; 85025; 99284; Q9967

== ENCOUNTER 2022-04-01 16:58 | Emergency (ER) | payer OTHER, SELFPAY ==
[2022-04-01 16:59] VITALS: BP 182/93; PULSE 83; RESP 18; TEMP 36.6; O2SAT 100; BMI 22.6
[2022-04-01 18:29] LABS: Absolute Lymphocyte Count 1.51 X10^3/uL (0.83-4.51); Absolute Neutrophil Count 9.1 X10^3/uL (2.0-7.7); Basophil# 0.05 X10^3/uL; Basophil% 0.4 % (0-1); Eosinophil# 0.05 X10^3/uL; Eosinophils% 0.4 % (0-5); Hemoglobin 14.5 g/dL (12.0-15.0); Lymphocyte # 1.51 X10^3/ul (0.83-4.51); Lymphocyte % 13.2 % (19-41); Mean Corp Hgb Conc 34.5 g/dL (32-36); Mean Corpuscular Hgb 31.9 pg (27.0-32.0); Mean Corpuscular Volume 92.5 fL (81-99); Monocyte# 0.75 X10^3/uL; Monocyte% 6.6 % (0-10); NRBC Flagged by Analyzer 0 % (0-5); Neutrophil # 9.05 X10^3/uL (2.7-7.7); Neutrophil % 79.1 % (47-70); Platelet Count 221 K/mm3 (150-450); RBC Distribution Width CV 12.4 % (11.6-14.6); RBC Distribution Width SD 42.1 fl (35.1-43.9); Red Blood Count 4.54 M/mm3 (4.2-5.4); White Blood Count 11.5 K/mm3 (4.4-11.0)
[2022-04-01 18:48] LABS: ALB/GLOB Ratio 1.1 RATIO (0.9-2.4); AST(SGOT) 10 U/L (15-37); Alanine Aminotransfer ALT/SGPT 25 U/L (13-56); Albumin, Serum 4.1 g/dL (3.2-5.0); Alkaline Phosphatase 66 U/L (45-117); Anion Gap 8 (5-15); BUN 13 mg/dL (7-18); BUN/Creat Ratio 17.7 RATIO (10-20); Calcium,Total 9.7 mg/dL (8.5-10.1); Chloride 105 mmol/L (98-107); Creatinine, Serum 0.74 mg/dL (0.55-1.02); EST Glomerular Filtration Rate 86 mL/min (>60); Est Glom Filt Rate - Afr Amer 104 mL/min (>60); Estimated Creatinine Clearance 75.68 ml/min; Globulin 3.9 g/dL (2.2-4.2); Glucose 106 mg/dL (74-106); Potassium 4.2 mmol/L (3.5-5.1); Sodium Level 140 mmol/L (136-145)
--- NOTE | 2022-04-01 19:36 | ED.VIS.GI ---
HPI HPI - GI History of Present Illness Chief Complaint: Abd Pain Informant: patient Narrative Narrative: Sent in for waxing waning left lower quadrant abdominal pain last 24 hours subjective fevers today. No vomiting no diarrhea normal bowel movements daily. Nonbloody stools. History of similar diverticulitis 2020 treated with antibiotics. She follow-up with her PCP and was told to wait for her colonoscopy until this year. She had a colonoscopy at the age of 51. No allergies. Prior similar symptoms: Yes PFSH PFSH Home Medications loratadine 10 mg tablet (Claritin) 10 mg PO DAILY 02/16/19 [History Last Taken Unknown] lisinopril 5 mg tablet 2.5 mg PO DAILY 10/18/19 [History Last Taken 11/02/19 04:55 2.5 MG] cod liver oil 1 ea PO DAILY 10/26/19 [History Last Taken Unknown] amoxicillin 875 mg-potassium clavulanate 125 mg tablet (Augmentin) 1 tab PO BID #20 tabs 03/15/21 [Rx Last Taken Unknown] amoxicillin 875 mg-potassium clavulanate 125 mg tablet 1 tab PO BID #20 tabs 04/01/22 [Rx Last Taken Unknown] Allergy/AdvReac Type Severity Reaction Status Date / Time No Known Allergies Allergy Verified 03/15/21 16:41 Family History Father Heart disease Mother Heart disease Surgical History History of cystoscopy History of total vaginal hysterectomy (TVH) Hx of bilateral salpingectomy Social History Smoking Status: Never smoker alcohol intake: current alcohol intake frequency: holidays/special occasions only substance use type: does not use caffeine: Yes what type of physical activity do you participate in: none seatbelt use: always do you feel safe at home: Yes additional social history: Caleb- retired Patient works at [employer] ED Constitutional Constitutional ED: Reports fever(s); Denies chills or sweats Eyes Eyes: Denies change in vision ENT ENT ED: Denies dysphagia or sore throat Cardiovascular Cardiovascular: Denies chest pain, leg edema, palpitations or racing heartbeat Respiratory/Chest Respiratory/Chest: Denies cough, dyspnea or dyspnea on exertion Gastrointestinal Gastrointestinal: Reports abdominal pain; Denies diarrhea, nausea or vomiting Genitourinary Genitourinary ED: Denies dysuria, hematuria or urinary frequency Musculoskeletal Musculoskeletal: Denies back pain, extremity pain or neck pain Integumentary Denies rash or wounds Neurologic Neurologic: Denies headache(s), paresthesias or weakness EXAM Physical Exam Const Vital Signs: 04/01/22 16:59 Temperature 98 F Temperature Source Temporal Pulse Rate 83 Respiratory Rate 18 Blood Pressure 182/93 H Blood Pressure Mean 122 Pulse Ox 100 Oxygen Delivery Method Room Air Positive well nourished and well developed General Appearance ED: well developed and NAD HEENT Reports moist mucous membranes normocephalic and atraumatic Eyes PERRL, EOMs intact bilaterally and conjunctivae normal General Eye ED: Yes normal appearance of both eyes Neck no lymphadenopathy and supple General: Negative for tenderness Chest Wall Chest: Negative for tenderness Resp normal respiratory effort and normal air movement Effort and Inspection: symmetric chest movement; Negative for respiratory distress Cardio regular rate, regular rhythm and no murmurs Peripheral Pulses: pulses 2+ throughout GI normal to inspection, nondistended, normoactive bowel sounds GI Narrative: Mild tenderness left lower quadrant there is no guarding or rebound. Negative Zimmerman's or McBurney's tenderness. Palpation: Negative for guarding or rebound tenderness present Back/Spine no CVA tenderness and no thoracic nor lumbar tenderness Extremity normal to inspection General Extremety ED: Negative for edema or tenderness General Extremity: Negative for edema Neuro oriented x3 and no sensory deficits noted Sensorium / Orientation: awake and alert Skin no rashes or lesions noted and no wounds MDM MDM MDM Narrative Medical decision making narrative: Patient work-up started in triage due to busy department. Laboratory studies obtained and reviewed by myself noted white count 11.5. Clinically nonsurgical abdomen. She has left lower quadrant pain with history of similar with diverticulitis this is high on differential. There is no clinical signs of perforation. Differential includes UTI however has no symptoms either. No clinical concerns for appendicitis or cholecystitis. She reports symptoms improved 24 hours after antibiotics. From review of records from February 2021 she had diagnosis doctor on CT treat with Augmentin. She declines any pain medicines. She started on Augmentin. She is given follow-up with GI. Strict return precaution discussed. All questions were answered. Lab Data Attestation: I reviewed the patient's lab results. Labs: Laboratory Results - last 24 hr 04/01/22 04/01/22 18:25 18:25 WBC 11.5 H RBC 4.54 Hgb 14.5 Hct 42.0 MCV 92.5 MCH 31.9 MCHC 34.5 RDW Std Deviation 42.1 RDW Coeff of Albina 12.4 Plt Count 221 MPV 11.0 Immature Gran % (Auto) 0.300 Neut % (Auto) 79.1 H Lymph % (Auto) 13.2 L Nolan % (Auto) 6.6 Eos % (Auto) 0.4 Baso % (Auto) 0.4 Absolute Neuts (auto) 9.1 H Absolute Lymphs (auto) 1.51 Nucleated RBC % 0 Sodium 140 Potassium 4.2 Chloride 105 Carbon Dioxide 27.0 Anion Gap 8 BUN 13 Creatinine 0.74 Estim Creat Clear Calc 75.68 Est GFR (MDRD) Af Amer 104 Est GFR (MDRD) Non-Af 86 BUN/Creatinine Ratio 17.7 Glucose 106 Calcium 9.7 Total Bilirubin 0.60 AST 10 L ALT 25 Alkaline Phosphatase 66 Total Protein 8.0 Albumin 4.1 Globulin 3.9 Albumin/Globulin Ratio 1.1 Discharge Plan Triage Chief Complaint: Abd Pain ED Provider: Conner Andrea Dx/Rx/DC Orders Clinical Impression: Diverticulitis, Abdominal pain, LLQ Instructions: Diverticulitis Dc Prescriptions: New amoxicillin-pot clavulanate 875-125 mg tablet 1 tab PO BID Qty: 20 0RF No Action loratadine [Claritin] 10 mg tablet 10 mg PO DAILY lisinopril 5 mg tablet 2.5 mg PO DAILY cod liver oil 1 EACH capsule 1 ea PO DAILY amoxicillin-pot clavulanate [Augmentin] 875-125 mg tablet 1 tab PO BID Qty: 20 0RF Primary Care Provider: Fernando Egan Referrals: Wing Daugherty DO [Med Staff - Active Staff] - 1-2 Weeks Fernando Egan MD [Primary Care Provider] - Activity Restrictions/Additional Instructions: You are being treated for clinical diverticulitis. White count 11. Take antibiotic as prescribed use Tylenol or ibuprofen. Return if any worsening symptoms. Follow-up with GI as an outpatient for plan colonoscopy. Disposition Disposition: Home, Self Care Discharge Date/Time: 04/01/22 19:43
[2022-04-01] MEDS: Amox/Clavulanate 875 MG Tablet PO (19:40)
== END 2022-04-01 19:43 | disposition home or self-care (01) ==
LOC: ED 19:39
PROVIDERS: Emergency Provider Emergency Medicine; PCP Family Medicine; Visit Provider Emergency Medicine
DX: K57.92 Diverticulitis of intestine, part unspecified, without perforation or abscess without bleeding (principal); R10.32 Left lower quadrant pain
CPT/HCPCS: 80053; 85025; 99284

== ENCOUNTER → 2022-10-03 | Outpatient (CLI) | payer OTHER, SELFPAY ==
--- NOTE | 2022-10-02 | TOBX_PTH ---
PATIENT: SHERLEY KILLIAN LOC: [facility] U#:[id number] AGE/SX: 61/F ROOM: RE10/03/[address]: Dr. Silver Witt DDS : 1960 BED: DIS: 10/03/2022 SPEC #: [id number] RECD: 10/03/22 10:02 STATUS: COOPER RICA #: [id number] TOM: 10/02/22 00:[address]: Silver Witt DEPT: SURGICAL PATHOLOGY RECD BY: Tad Aleman ENTERED: 10/03/22 13:10 SP TYPE: TONGUE BX OTHR DR: Dr. Fernando Egan MD Tissues: Tongue, NOS Procedures: Surgery Specimen Level IV HEADER OPERATION: Biopsy tongue PRE-OP DIAGNOSIS: Inflamed papilla TISSUE SUBMITTED: Tongue biopsy MICROSCOPIC DIAGNOSIS Tongue, biopsy: Squamous papilloma. SJ: 10/04/22 COMMENT Focal bacterial colonization is noted at surface of the lesion. Case has been reviewed in consultation with Dr. Fuentes who concurs with the above diagnosis. IDC:AM MICROSCOPIC DESCRIPTION Slides are reviewed. GROSS DESCRIPTION Received in fixative is one container labeled with the patient's name and designated tongue biopsy. The specimen consists of one irregular fragment of light casas soft tissue that measures 0.4 x 0.1 x 0.1 cm. The specimen is totally submitted in one cassette. /SJ:dontae 10/03/22 TC: 1 CPT:57268
== END | disposition home or self-care (01) ==
LOC: LABSPEC 10:14
PROVIDERS: PCP Family Medicine; Referring Provider Dentist Oral and Maxillofacial Surgery; Visit Provider Dentist Oral and Maxillofacial Surgery
DX: D10.1 Benign neoplasm of tongue (principal)
CPT/HCPCS: 88305

== ENCOUNTER → 2024-11-24 | Outpatient (CLI) | payer OTHER, SELFPAY ==
--- NOTE | 2024-11-24 06:20 | CT_ITS ---
PROCEDURE: ABDOMEN/PELVIS WITH CONTRAST 11/24/2024 REASON FOR EXAM: LLQ PAIN, DIVERTICULITIS TECHNIQUE: Procedure Code: [id number] Modality: CT Procedure: ABDOMEN/PELVIS WITH CONTRAST Coronal and Sagittal reconstruction series were provided. CONTRAST: Isovue 370 VOLUME: 96 mL One or more dose reduction techniques were used (e.g., Automated exposure control, adjustment of the mA and/or kV according to patient size, use of iterative reconstruction technique. RADIATION DOSE SUMMARY: CTDlvol: 39.8 mGy DLP: 541.89 mGycm COMPARISON: CT abdomen and pelvis with IV contrast, 03/15/2021. FINDINGS: Lung bases: The lung bases are clear. There are no pleural effusions. The heart size is normal. There is no pericardial effusion. There is no calcific vascular disease of the coronary arteries evident. Liver: There are multiple stable low-density nodules throughout the liver consistent with hepatic cysts. Gallbladder: Normal. Spleen: Normal size. Pancreas: Normal size without evidence of mass surrounding inflammation or ductal dilation. Adrenals: Normal. Kidneys: Normal renal sizes. No hydronephrosis. There are cortical cysts in both kidneys. Bladder: Normal unenhanced appearance. Reproductive Organs: The uterus is surgically absent. The ovaries are unremarkable. There is no free fluid in the pelvis. There is no inguinal lymphadenopathy. Bowel: There are scattered colonic diverticuli without evidence of acute inflammation. There is stool throughout the colon. Appendix: Normal. Lymph nodes: There is increased attenuation of the central mesenteric fat with associated reactive lymph nodes consistent with sclerosing mesenteritis. There is no significant retroperitoneal or pelvic lymphadenopathy. Vasculature: Mild diffuse atherosclerotic calcifications are noted. Peritoneum / Retroperitoneum/abdominal wall: There are no abnormal intra or retroperitoneal masses or fluid collections. There are no abdominal wall defects. Status post left mastectomy. Bones: There are no significant bony abnormalities. There is mild levoscoliosis of the lumbar spine. CT/Abdomen/Pelvis WITH Contrast IMPRESSION: 1. Colonic diverticulosis without diverticulitis. 2. Mild constipation. 3. Hepatic and renal cysts. 4. Findings of sclerosing mesenteritis. 5. Other findings as noted. Reading Location: [id number]
--- OUTSIDE RECORDS SUMMARY | 2024-11-24 06:21 | XMS RPT_ITS | CCD ---
Author Organization [facility] Care Team Providers Care Supervisor [employer] Name Role Phone Helder Egan MD Primary Care Provider Yuki DO, Ramanpreet Unavailable Unavailable Primary Care Provider UnavailNONA Tsai Referring Unavailable HELDER EGAN Primary Care Unavailab shakeel Lion MD, Kimberlee Unavailable Helder Egan MD Primary Care Provider Tommy GRAY, PhD, Ross Carranza Primary Care Provider Yuki DO, Ramanpreet Unavailable Tommy GRAY, PhD, Ross Tere Primary Care Provider [phone] Bill Eugene MD Unavailable HENNY HENRY Attending Unavailable MK SCOTT Referring Unavailable JIN, ROSS TERE Primary Care Unavailable JIN, ROSS TERE Primary Care Unavailable HENNY HENRY Attending Unavailable MK SCOTT Referring Unavailable JIN, ROSS TERE Primary Care Unavailable MK SCOTT Attending Unavailable JIN, ROSS TERE Primary Care Unavailable KIMBERLEE LION Referring Unavailable BRUNA NATHAN Attending Unavailable JIN, ROSS TERE Primary Care Unavailable BRUNA NATHAN Attending Unavailable JIN, ROSS TERE Primary Care Unavailable ARLEEN GARZA Attending Unavailable JIN, ROSS TERE Primary Care Unavailable MORELIA MILLS Referring Unavailable JIN, ROSS TERE Primary Care Unavailable SELF Referring Unavailable MK SCOTT Attending Unavailable JIN, ROSS TERE Primary Care Unavailable KIMBERLEE LION Referring Unavailable JIN, ROSS TERE Primary Care Unavailable PETTY SHEA Referring Unavai lable JIN, ROSS TERE Primary Care Unavailable SELF Referring Unavailable PETTY SHEA Attending Biju lr JIN, ROSS TERE Primary Care Unavailable ONGER, KIMBERLEE Referring Unavailable JIN, ROSS TERE Primary Care Unavailable JIN, ROSS TERE Primary Care Unavailable ONGER, KIMBERLEE Referring Unavailable ONGER, IKMBERLEE Attending Unavailable JIN, ROSS TERE Primary Care Unavailable LUZ CASTILLO Attending Unavailable JIN, ROSS TERE Primary Care Unavailable PERSITS, JOHN Referring Unavailable JIN, ROSS TERE Primary Care Unavailable JIN, ROSS TERE Primary Care Unavailable PERSITS, JOHN Referring Unavailable JIN, ROSS TERE Primary Care Unavailable PERSITS, JOHN Referring Unavailable JIN, ROSS TERE Primary Care Unavailable MK SCOTT Attending Unavailable JIN, ROSS TERE Primary Care Unavailable ONGER, KIMBERLEE Referring Unavailable JIN, ROSS TERE Primary Care Unavailable JIN, ROSS TERE Referring Unavailable JIN, ROSS TERE Primary Care Unavailable PERSITS, JOHN Referring Unavailable JIN, ROSS TERE Primary Care Unavailable PERSITS, JOHN Referring Unavailable MORELIA MILLS Attending Unavailable Fernando Singh Primary Care UnavailSilver Macario Referring Unavailable Silver Chirinos Attending Unavailable Allergies Allergy Classification Reported Allergen(s) Allergy Type Date of Onset Reaction(s) Facility (20 sources) Seasonal allergy; Translations: [SEASONAL ALLERGIES] Allergy to substance Other: See Comments [facility] Medications Current Medications Medication Drug Class(es) Dates Sig (Normalized) Sig (Original) alendronic acid 70 mg oral tablet (20 sources) Bisphosphonate Start: 07-15-2023 End: 05-31-2024 alendronate (FOSAMAX) 70 mg tablet PLEASE SEE ATTACHED FOR DETAILED DIRECTIONS 12 tablet 1 05/31/2024 Active amoxicillin 875 mg / clavulanate 125 mg oral tablet (4 sources) Penicillin-class Antibacterial Start: 04-01-2022 take 1 tablet by mouth twice daily Amoxicillin-Pot Clavulanate Active 1 TABLET PO TWICE A DAY April 01, 2022 1:00am Start: 03-15-2021 take 1 tablet by jalen th twice daily Amoxicillin-Pot Clavulanate (Augmentin) 875-125 mg tablet Active 1 TABLET PO TWICE A DAY March 15, 2021 1:00am anastrozole 1 mg oral tablet (20 sources) Aromatase Inhibitor Start: 01-23-2023 End: 01-08-2025 take 1 tablet by mouth once daily anastrozole (ARIMIDEX) 1 mg tablet Indications: Cancer of breast, intraductal, left Take 1 tablet by mouth once daily. 90 tablet 3 01/09/2024 01/08/2025 Active Comment on above: Take 1 tablet by jalen once daily. cholecalciferol 0.025 mg oral tablet (20 sources) Vitamin D Start: 03-29-2024 take 2 tablets by mouth once daily cholecalciferol (VITAMIN D) 1,000 unit tab tablet Take 2 tablets by mouth once daily. 03/29/2024 Active Start: 03-30-2023 End: 11-27-2023 take 1 capsule by mouth every week cholecalciferol, Vitamin D3, (VITAMIN D3) 1,250 mcg (50,000 unit) cap capsule Take 1 capsule by mouth one time a week. 12 capsule 03/30/2023 11/27/2023 Discontinued (Course of therapy completed) Comment on above: Take 1 capsule by mo [facility] one time a week. Cod Liver Oil (2 sources) Start: 10-26-2019 Cod Liver Oil Active 1 EACH PO DAILY October 26, 2019 12:00am Start: 10-26-2019 Cod Liver Oil Active 1 EACH PO DAILY October 25, 2019 11:00pm DHEA vaginal suppository 13 mg (CPD) (11 sources) Start: 05-05-2024 DHEA vaginal s uppository 13 mg (CPD) Indications: Genitourinary syndrome of menopause Unwrap 1 suppository and insert every night in vagina as directed for the first 2 weeks, and then every other day for 2 months. Then twice a week. 30 Suppository 3 08/18/2024 3:06 PM EDT 05/05/2024 Active Start: 05-05-2024 DHEA vaginal s uppository 13 mg (CPD) Indications: Genitourinary syndrome of menopause Unwrap 1 suppository and insert every night in vagina as directed for the first 2 weeks, and then every other day for 2 months. Then twice a week. 30 Suppository 3 05/18/2024 5:23 PM EST 05/05/2024 Active Start: 05-05-2024 DHEA vaginal s uppository 13 mg (CPD) Indications: Genitourinary syndrome of menopause Use 1 Suppository vaginally as directed. Unwrap suppository and Insert every night in vagina for the first 2 weeks, and then every other day for 2 months. Then twice a week. 30 Suppository 3 05/05/2024 Active enteric contrast (will be provided with radiology test) (1 source) Start: 04-16-2022 End: 04-17-2022 enteric contrast (will be provided with radiology test) For CT ABD/PEL W IVCON Routine order Administer, As Directed One Time Only, via Oral, Rectal, both Oral and Rectal, Enteric Tube, Stoma or Indwelling Catheter, Enteric Contrast as designated per enteric contrast guidelines 1 Each 0 04/16/2022 04/17/2022 Active Comment on above: For CT ABD/PEL W IVC ON Routine order Administer, As Directed One Time Only, via Oral, Rectal, both Oral and Rectal, Enteric Tube, Stoma or Indwelling Catheter, Enteric Contrast as designated per enteric contrast guidelines iv contrast (will be provided with radiology test) (11 sources) Start: 06-04-2024 iv contrast (w ill be provided with radiology test) Indications: Screening for breast cancer using non-mammogram modality MRI Breast DALE Inject, intravenously, once for 1 dose. No IV access, insert saline lock prior to the beginning of sedation, infusion, injection of imaging exam. Discontinue saline lock post exam. If Pt has a central line or IVAD, may access for administration according to line specific nursing protocol. Once exam is complete flush line and de-access according to line specific nursing protocol in the MR contrast administration guidelines link 1 Each 06/04/2024 Active Start: 01-02-2024 End: 01-03-2024 inject 1 dose intravenously once iv contrast (will be provided with radiology test) Indications: Chest pain, unspecified type CTA Coronary. No IV access, insert saline lock prior to the sedation, infusion, injection for imaging exam. Discontinue saline lock post exam. If Pt. has a central line or IVAD, may access for administration according to line specific nursing protocol. Once exam is complete flush line and de-access according to line specific nursing protocol in the CT contrast administration guidelines link. 1 Each 01/02/2024 01/03/2024 Start: 05-21-2023 End: 05-22-2023 iv contrast (will be provide d with radiology test) Indications: Renal lesion CT kidney wow Inject, intravenously, once for 1 dose.No IV access, insert saline lock prior to the beginning of sedation, infusion, injection of imaging exam. Discontinue saline lock post exam. If Pt. has a central line or IVAD, may access for administration according to line specific nursing protocol. Once exam is complete flush line and de-access according to line specific nursing protocol in the CT contrast administration guidelines link. 1 Each 0 05/21/2023 05/22/2023 Active Start: 03-28-2023 End: 03-29-2023 iv contrast (will be provide d with radiology test) CT Urogram WO/W Inject, intravenously, once for 1 dose.No IV access, insert saline lock prior to the beginning of sedation, infusion, injection of imaging exam. Discontinue saline lock post exam. If Pt. has a central line or IVAD, may access for administration according to line specific nursing protocol. Once exam is complete flush line and de-access according to line specific nursing protocol in the CT contrast administration guidelines link. 1 Each 0 03/28/2023 03/29/2023 Start: 12-25-2022 End: 12-26-2022 iv contrast (will be provide d with radiology test) Indications: Invasive ductal carcinoma of breast, left (HCC) MRI Breast DALE Inject, intravenously, once for 1 dose. No IV access, insert saline lock prior to the beginning of sedation, infusion, injection of imaging exam. Discontinue saline lock post exam. If Pt has a central line or IVAD, may access for administration according to line specific nursing protocol. Once exam is complete flush line and de-access according to line specific nursing protocol in the MR contrast administration guidelines link 1 Each 0 12/25/2022 12/26/2022 Start: 04-16-2022 End: 04-17-2022 iv contrast (will be provide d with radiology test) CT ABD/PEL -Inject, intravenously, once for 1 dose.No IV access, insert saline lock prior to the beginning of sedation, infusion, injection of imaging exam. Discontinue saline lock post exam. If Pt. has a central line or IVAD, may access for administration according to line specific nursing protocol. Once exam is complete flush line and de-access according to line specific nursing protocol in the CT contrast administration guidelines link. 1 Each 0 04/16/2022 04/17/2022 Active Comment on above: CT ABD/PEL -Inject, intravenously, once for 1 dose.No IV access, insert saline lock prior to the beginning of sedation, infusion, injection of imaging exam. Discontinue saline lock post exam. If Pt. has a central line or IVAD, may access for administration according to line specific nursing protocol. Once exam is complete flush line and de-access according to line specific nursing protocol in the CT contrast administration guidelines link. MRI Breast DALE Injec t, intravenously, once for 1 dose. No IV access, insert saline lock prior to the beginning of sedation, infusion, injection of imaging exam. Discontinue saline lock post exam. If Pt has a central line or IVAD, may access for administration according to line specific nursing protocol. Once exam is complete flush line and de-access according to line specific nursing protocol in the MR contrast administration guidelines link CT Urogram WO/W Inje ct, intravenously, once for 1 dose.No IV access, insert saline lock prior to the beginning of sedation, infusion, injection of imaging exam. Discontinue saline lock post exam. If Pt. has a central line or IVAD, may access for administration according to line specific nursing protocol. Once exam is complete flush line and de-access according to line specific nursing protocol in the CT contrast administration guidelines link. CT kidney wow Inject , intravenously, once for 1 dose.No IV access, insert saline lock prior to the beginning of sedation, infusion, injection of imaging exam. Discontinue saline lock post exam. If Pt. has a central line or IVAD, may access for administration according to line specific nursing protocol. Once exam is complete flush line and de-access according to line specific nursing protocol in the CT contrast administration guidelines link. lisinopril 2.5 mg oral tablet (20 sources) Angiotensin Converting Enzyme Inhibitor Start: take 1 tablet by mouth once daily lisinopril 2.5 mg tablet Take 1 tablet by mouth once daily. 90 tablet 3 04/08/2024 Active Start: 04-14-2023 End: 04-01-2024 take 1 tablet by mouth once daily lisinopril 2.5 mg tablet Take 1 tablet by mouth once daily. 90 tablet 3 04/14/2023 04/01/2024 Discontinued Start: 01-13-2023 take 1 tablet by jalen th once daily lisinopril 2.5 mg tablet Take 1 tablet by mouth once daily. 30 tablet 2 01/13/2023 Active Start: 03-27-2022 End: 01-11-2023 take 1 tablet by mouth once daily lisinopril 2.5 mg tablet Take 1 tablet by mouth once daily. 30 tablet 2 10/07/2022 01/11/2023 Discontinued Start: 10-18-2019 take 2.5 mg by mouth once lizbeth y Lisinopril Active 2.5 MG PO DAILY October 18, 2019 12:00am Comment on above: Take 1 tablet by jalen th once daily. loratadine 10 mg oral tablet (2 sources) Start: 02-16-2019 take 1 tablet by mouth once daily Loratadine (Claritin) 10 mg tablet Active 10 MG PO DAILY February 16, 2019 1:00am Completed/Discontinued Medications Medication Drug Class(es) Dates Sig (Normalized) Sig (Original) acetaminophen 325 mg / HYDROcodone bitartrate 5 mg oral tablet (9 sources) Opioid Agonist Start: 11-18-2022 End: 01-06-2023 HYDROcodone-acetami nophen (NORCO) 5-325 mg per tablet Indications: Postoperative pain Take 1 tablet by mouth every 6 hours as needed for pain for up to 8 doses. 8 tablet 0 11/18/2022 01/06/2023 Discontinued Comment on above: Take 1 tablet by jalen th every 6 hours as needed for pain for up to 8 doses. acetaminophen 325 mg / oxyCODONE hydrochloride 5 mg oral tablet (2 sources) Opioid Agonist Start: 11-02-2019 End: 11-09-2019 take 1 tablet by mouth every six hours as needed Oxycodone-Acetamino phen Discontinued 1 - 2 TABLET PO EVERY 6 HOURS NEEDED 15 7 November 02, 2019 November 09, 2019 12:02am calcium carbonate/vitamin D2 (CALCIUM + VITAMIN D ORAL) (20 sources) End: 01-23-2023 calcium carbonate/vitamin D2 (CALCIUM + VITAMIN D ORAL) Take by mouth. 0 01/23/2023 Discontinued calcium carbonat e/vitamin D2 (CALCIUM + VITAMIN D ORAL) Take by mouth. 0 Active Comment on above: Take by mouth. cephalexin 500 mg oral capsule (2 sources) Cephalosporin Antibacterial Start: 11-02-19 End: 11-05-19 take 500 mg by mouth every twelve hours Cephalexin Discontinued 500 MG PO EVERY 12 HOURS 6 3 November 02, 2019 12:00am November 05, 2019 12:03am DHEA vaginal suppository 4 mg (CPD) (20 sources) Start: 01-24-20 End: 05-05-19 DHEA vaginal suppository 4 mg (CPD) Indications: Genitourinary syndrome of menopause Unwrap and insert 1 suppository vaginally every other night. 45 Suppository 3 01/22/2024 4:20 PM EDT 01/23/2023 05/05/2024 Discontinued Start: 01-23-2023 DHEA vaginal s uppository 4 mg (CPD) Indications: Genitourinary syndrome of menopause Unwrap and insert 1 suppository vaginally every other night. 45 Suppository 3 01/23/2023 Active Start: 01-22-2023 End: 01-23-2023 DHEA vaginal suppository 4 m g (CPD) Indications: Genitourinary syndrome of menopause Insert one DHEA suppository. Please note the lower dose of 4mg. Every other night vaginally. 45 Suppository 3 01/22/2023 01/23/2023 Discontinued Comment on above: Insert one DHEA supp ository. Please note the lower dose of 4mg. Every other night vaginally. Unwrap and insert 1 suppository vaginally every other night. estradiol 0.1 mg/ml vaginal cream (20 sources) Estrogen Start: 12-06-2020 End: 03-06-2023 estradiol (ESTRACE) 0.01 % (0.1 mg/gram) vaginal cream Indications: Vaginal dryness INSERT 0.5 GRAMS VAGINALLY TWICE PER WEEK FOR 90 DAYS 42.5 g 1 01/22/2023 03/06/2023 Discontinued Start: 08-06-2019 End: 10-18-2019 Estradiol (Estrace) 0.01 % ( 0.1 mg/gram) cream Discontinued 1 GM VAGINAL EVERY WEEK August 06, 2019 12:00am October 18, 2019 10:45am Start: 02-16-2019 End: 08-06-2019 take 1 tablet by mouth once daily Estradiol (Estrace) 1 mg tablet Discontinued 1 MG PO DAILY February 16, 2019 1:00am August 06, 2019 2:35pm Comment on above: INSTILL 0.5 GRAMS VA GINALLY TWICE PER WEEK FOR 90 DAYS INSERT 0.5 GRAMS VAG INALLY TWICE PER WEEK FOR 90 DAYS metoprolol tartrate 50 mg oral tablet (9 sources) beta-Adrenergic [place] Start: 01-02-20 End: 03-29-19 metoprolol tartrate, short acting, (LOPRESSOR) 50 mg tablet Indications: Chest pain, unspecified type Take one 50 mg tablet the evening prior to the CTA examination, take another 50 mg tablet the morning of the CTA examination. 2 tablet 01/02/2024 03/29/2024 Discontinued naproxen 250 mg oral tablet (2 sources) Nonsteroidal Anti-inflammatory Drug Start: 11-02-19 End: 11-15-19 take 250-500 mg by mouth every eight hours as needed Naproxen Discontinued 250 - 500 MG PO EVERY 8 HOURS NEEDED November 02, 2019 12:00am November 15, 2019 3:06pm nitroglycerin 0.3 mg sublingual tablet (8 sources) Nitrate Vasodilator Start: 01-02-20 End: 03-29-19 take 1 tablet under the tongue once nitroglycerin sublingual (NITROQUICK) 0.3 mg SL tablet Indications: Chest pain, unspecified type Dissolve 1 tablet under the tongue one time only for 1 dose. To be administered in Radiology for CTA exam 1 tablet 01/02/2024 03/29/2024 Discontinued oxyCODONE hydrochloride 5 mg oral tablet (9 sources) Opioid Agonist Start: 01-16-20 End: 03-06-20 take 1 tablet by mouth every eight hours as needed for pain oxyCODONE IR (ROXICODONE) 5 mg immediate release tablet Indications: Malignant neoplasm of central portion of left female breast, unspecified estrogen receptor status (HCC) Take 1 tablet by mouth every 8 hours as needed for pain. 8 tablet 0 01/15/2023 03/06/2023 Discontinued Comment on above: Take 1 tablet by jalen th every 8 hours as needed for pain. polyethylene glycol 3350 [id number] mg / potassium chloride 2970 mg / sodium bicarbonate 6740 mg / sodium chloride 5860 mg / sodium sulfate 26420 mg powder for oral solution (1 source) Osmotic Laxative Start: 11-19-19 End: 11-19-19 peg 3350-Electrolytes (GOLYTELY) 236-22.74-6.74 -5.86 gram suspension Indications: Screening for colon cancer Take 4,000 mL by mouth one time only for 1 dose. Refer to printed prep instructions from your provider. 4000 mL 0 11/18/2022 11/18/2022 Comment on above: Take 4,000 mL by jalen th one time only for 1 dose. Refer to printed prep instructions from your provider. 1000 ml sodium chloride 9 mg/ml injection (1 source) Start: 03-28-19 End: 03-28-19 0.9 % sodium chloride (NACL 0.9%) infusion Administer at rate defined per CT contrast administration specifications. To be provided with radiology test. 150 mL 0 03/28/2023 03/28/2023 Comment on above: Administer at rate d efined per CT contrast administration specifications. To be provided with radiology test. Problems Active Problems Problem Classification Problem Date Documented Date Episodic/Chronic Abdominal pain (7 sources) Left lower quadrant pain; Translations: [Left lower quadrant pain] Onset: 11-17-2024 Episodic Administrative/social admission (5 sources) Other problems related to medical facilities and other health care; Translations: [Other specified conditions influencing health status] Onset: 07-23-2024 01-06-2023 Episodic Cancer of breast (20 sources) Invasive carcinoma of breast; Translations: [Malignant neoplasm of unspecified site of unspecified female breast] Onset: 12-25-2022 12-25-2022 Chronic Cancer of breast (1 source) History of malignant neoplasm of breast; Translations: [Personal history of malignant neoplasm of breast] 03-29-2024 Episodic Disorders of lipid metabolism (20 sources) Mixed hyperlipidemia; Translations: [Mixed hyperlipidemia] Onset: 06-22-2020 06-22-2020 Chronic Diverticulosis and diverticulitis (5 sources) Diverticulitis; Translations: [Diverticulitis of intestine, part unspecified, without perforation or abscess without bleeding] Onset: 10-04-2024 04-09-2022 Chronic Essential hypertension (20 sources) Essential hypertension; Translations: [Essential (primary) hypertension] Onset: 04-13-2021 04-13-2021 Chronic Genitourinary symptoms and ill-defined conditions (20 sources) Female stress incontinence; Translations: [Stress incontinence (female) (male)] Onset: 01-02-2024 11-07-2023 Chronic Malaise and fatigue (3 sources) Lack of energy; Translations: [Other fatigue] Onset: 07-23-2024 07-28-2024 Episodic Menopausal disorders (2 sources) Genitourinary syndrome of menopause; Translations: [Other specified menopausal and perimenopausal disorders] 04-27-2024 Chronic Nonmalignant breast conditions (20 sources) Multiple cysts of breast; Translations: [Diffuse cystic mastopathy of unspecified breast] Onset: 03-06-2022 03-06-2022 Chronic Nonspecific chest pain (6 sources) Chest pain; Translations: [Chest pain, unspecified] Onset: 07-23-2024 01-02-2024 Episodic Nutritional deficiencies (3 sources) Vitamin D deficiency; Translations: [Vitamin D deficiency, unspecified] Onset: 10-08-2024 10-04-2024 Chronic Osteoporosis (8 sources) Osteoporosis; Translations: [Age-related osteoporosis without current pathological fracture] Onset: 10-04-2024 07-15-2023 Chronic Other aftercare (1 source) H/O: malignant neoplasm; Translations: [Encounter for follow-up examination after completed treatment for malignant neoplasm] 11-27-2023 Episodic Other and unspecified benign neoplasm (1 source) Benign neoplasm of skin of upper arm; Translations: [Melanocytic nevi of left upper limb, including shoulder] 07-03-2023 Episodic Other and unspecified benign neoplasm (1 source) Fibrous papule of nose; Translations: [Melanocytic nevi of other parts of face] 07-03-2023 Episodic Other and unspecified benign neoplasm (1 source) Multiple benign melanocytic nevi ; Translations: [Melanocytic nevi, unspecified] 10-02-2023 Episodic Other and unspecified benign neoplasm (1 source) Skin lesion; Translations: [Hemangioma of skin and subcutaneous tissue] 10-02-2023 Episodic Other diseases of kidney and ureters (20 sources) Disorder of kidney and/or ureter; Translations: [Other specified disorders of kidney and ureter] Onset: 03-30-2023 03-28-2023 Chronic Other diseases of kidney and ureters (2 sources) Kidney lesion; Translations: [Disorder of kidney and ureter, unspecified] 05-21-2023 Episodic Other diseases of kidney and ureters (1 source) Cyst of kidney; Translations: [Cyst of kidney, acquired] 07-17-2023 Episodic Other diseases of veins and lymphatics (1 source) Lymphedema; Translations: [Lymphedema, not elsewhere classified] 01-06-2023 Chronic Other endocrine disorders (2 sources) Hyperparathyroidism; Translations: [Hyperparathyroidism, unspecified] 05-21-2023 Chronic Other female genital disorders (4 sources) Vaginal dryness; Translations: [Other specified noninflammatory disorders of vagina] Episodic Other female genital disorders (2 sources) Mass of uterine adnexa; Translations: [Other specified conditions associated with female genital organs and menstrual cycle] Episodic Other lower respiratory disease (3 sources) Dyspnea; Translations: [Shortness of breath] 01-12-2024 Episodic Other lower respiratory disease (2 sources) Chest pain on breathing; Translations: [Chest pain on breathing] 10-04-2024 Episodic Other lower respiratory disease (1 source) Chest pain on breathing; Translations: [Chest pain on breathing] Onset: 10-04-2024 Episodic Other nervous system disorders (1 source) Postoperative pain ; Translations: [Other acute postprocedural pain] 11-18-2022 Episodic Other nutritional; endocrine; and metabolic disorders (20 sources) Hypercalcemia; Translations: [Hypercalcemia] Onset: 03-30-2023 01-27-2023 Chronic Other skin disorders (1 source) Lentiginosis; Translations: [Other melanin hyperpigmentation] 10-02-2023 Episodic Other skin disorders (1 source) Seborrheic keratosis; Translations: [Other seborrheic keratosis] 10-02-2023 Episodic Prolapse of female genital organs (20 sources) Cystocele; Translations: [Uterovaginal prolapse, unspecified] Onset: 03-06-2022 03-06-2022 Chronic Residual codes; unclassified (1 source) Past history of procedure; Translations: [Other specified postprocedural states] 11-22-2022 Episodic Residual codes; unclassified (1 source) Exercise tolerance finding; Translations: [Other specified health status] 07-23-2024 Episodic Residual codes; unclassified (1 source) Procedure needed; Translations: [Other specified health status] 07-23-2024 Episodic Residual codes; unclassified (1 source) Difficulty managing exercise regime; Translations: [Other specified health status] 07-23-2024 Episodic Residual codes; unclassified (3 sources) H/O: breast problem; Translations: [Personal history of other specified conditions] 10-04-2024 Episodic Residual codes; unclassified (1 source) Personal history of other specified conditions; Translations: [History of abnormal mammogram] Onset: 10-04-2024 Episodic Residual codes; unclassified (3 sources) Other specified health status; Translations: [Good exercise tolerance] Onset: 07-23-2024 Episodic Screening and history of mental health and substance abuse codes (2 sources) Patient encounter status; Translations: [Encounter for screening for depression] 03-08-2024 Episodic Unclassified (1 source) Immunization counseling; Translations: [Immunization counseling] Onset: 10-04-2024 Past or Other Problems Problem Classification Problem Date Documented Date Episodic/Chronic Genitourinary symptoms and ill-defined conditions (20 sources) Urgent desire to urinate; Translations: [Urgency of urination] Onset: 07-26-2022 Episodic Nonmalignant breast conditions (8 sources) Breast lump; Translations: [Unspecified lump in the left breast, overlapping quadrants] Onset: 05-26-2024 11-06-2022 Episodic Other circulatory disease (20 sources) Telangiectasia of limb; Translations: [Nevus, non-neoplastic] Onset: 03-06-2022 03-06-2022 Episodic Other connective tissue disease (20 sources) Muscle weakness; Translations: [Muscle weakness (generalized)] Onset: 07-26-2022 Episodic Other connective tissue disease (1 source) Muscle weakness (generalized); Translations: [Muscle weakness] Onset: 07-26-2022 Episodic Other lower respiratory disease (1 source) Shortness of breath; Translations: [Shortness of breath] Onset: 01-06-2024 Episodic Other screening for suspected conditions (not mental disorders or infectious disease) (20 sources) Mammography abnormal; Translations: [Other abnormal and inconclusive findings on diagnostic imaging of breast] Onset: 03-30-2023 Episodic Unclassified (1 source) Patient encounter status 06-04-2024 Results Test Name Value Interpretation Reference Range Facility CALCIUM, 24 HR URINEon 10-11 Calcium (24H U) [Mass/Time] 214.6 mg/24 hr Normal 100.0-300.0 [facility] Comment on above: Order Comment: Speci men Type: URINE SPECIMENOrdering Facility: [facility] Address: [address] [place] [address] Performed By: #### U CALCD ####[facility] LABIA [id number] [place] [id number] [place] PERIOD (HRS) 24 hr Normal [facility] Comment on above: Order Comment: Speci men Type: URINE SPECIMENOrdering Facility: [facility] Address: [address] [place] [address] Performed By: #### U CALCD ####[facility] [id number] [address] [place] Specimen volume (24H U) 0.725 L Normal [facility] Comment on above: Order Comment: Speci men Type: URINE SPECIMENOrdering Facility: [facility] Address: [address] [place] [address] Performed By: #### U CALCD ####[facility] [id number] [place] [id number] [place] CREATININE, 24 HOUR URINEon 10-11-2024 Creatinine (24H U) [Mass/Time] 0.714 g/24 hr Low 0.800-1.800 [facility] Comment on above: Order Comment: Speci men Type: URINE SPECIMENOrdering Facility: [facility] Address: [address] [place] [address] Performed By: #### U CRD ####[facility] [id number] [place] [id number] [place] PERIOD (HRS) 24 hr Normal [facility] Comment on above: Order Comment: Speci men Type: URINE SPECIMENOrdering Facility: [facility] Address: [address] [place] [address] Performed By: #### U CRD ####[facility] LABCLIA [id number] [address] [place] [address] [place] Specimen volume (24H U) 0.725 L Normal [facility] Comment on above: Order Comment: Speci men Type: URINE SPECIMENOrdering Facility: [facility] Address: [address] [place], [place] [address] Performed By: #### U CRD ####[facility] LABCLIA [id number] [address] [place] [address] [place] 25(OH)D3 [facility] 25-hydroxyvitamin D3 [Mass/Vol] 34.1 ng/mL Normal 31.0-80.0 [facility] Comment on above: Order Comment: Speci men Type: BLOOD SPECIMENOrdering Facility: [facility] Address: [address] [place] [address] Performed By: #### 1 989-3 ####[facility] [id number] [address] [place] [address] [facility] CBC panel Auto (Bld)on 10-08 Erythrocyte distribution width (RBC) [Ratio] 12.9 % Normal 11.5-15.0 [facility] Comment on above: Order Comment: Speci men Type: BLOOD SPECIMENOrdering Facility: [facility] Address: [address] [place], [place] [address] Performed By: #### 5 8410-2 ####[facility] LABCLIA [id number] [address] [place] [address] [place] Hematocrit (Bld) [Volume fraction] 40.2 % Normal 36.0-46.0 [facility] Comment on above: Order Comment: Speci men Type: BLOOD SPECIMENOrdering Facility: [facility] Address: [address] [place], [place] [address] Performed By: #### 5 8410-2 ####[facility] [id number] [address] [place] [address] [place] Hemoglobin (Bld) [Mass/Vol] 13.4 g/dL Normal 11.5-15.5 [facility] Comment on above: Order Comment: Speci men Type: BLOOD SPECIMENOrdering Facility: [facility] Address: [address] [place] [address] Performed By: #### 5 8410-2 ####[facility] [id number] [place] [address] [place] MCH (RBC) [Entitic mass] 31.3 pg Normal 26.0-34.0 [facility] Comment on above: Order Comment: Speci men Type: BLOOD SPECIMENOrdering Facility: [facility] Address: [address] [place] [address] Performed By: #### 5 8410-2 ####[facility] [id number] [address] [place] MCHC (RBC) [Mass/Vol] 33.3 g/dL Normal 30.5-36.0 [facility] Comment on above: Order Comment: Speci men Type: BLOOD SPECIMENOrdering Facility: [facility] Address: [address] [place] [address] Performed By: #### 5 8410-2 ####[facility] [id number] [place] [address] [place] MCV (RBC) [Entitic vol] 93.9 fL Normal 80.0-100.0 [facility] Comment on above: Order Comment: Speci men Type: BLOOD SPECIMENOrdering Facility: [facility] Address: [address] [place] [address] Performed By: #### 5 8410-2 ####[facility] [id number] [place] [address] [place] Nucleated RBC (Bld) [#/Vol] 10*3/uL Normal <0.01 [facility] Comment on above: Order Comment: Speci men Type: BLOOD SPECIMENOrdering Facility: [facility] Address: [address] [place] [address] Performed By: #### 5 8410-2 ####[facility] [id number] [address] [address] [place] Platelet mean volume (Bld) [Entitic vol] 11.7 fL Normal 9.0-12.7 [facility] Comment on above: Order Comment: Speci men Type: BLOOD SPECIMENOrdering Facility: [facility] Address: [address] [place] [address] Performed By: #### 5 8410-2 ####[facility] [id number] [place] [address] [place] Platelets (Bld) [#/Vol] 218 10*3/uL Normal 150-400 [facility] Comment on above: Order Comment: Speci men Type: BLOOD SPECIMENOrdering Facility: [facility] Address: [address] [place] [address] Performed By: #### 5 8410-2 ####[facility] [id number] [place] [address] [place] RBC (Bld) [#/Vol] 4.28 10*6/uL Normal 3.90-5.20 [facility] Comment on above: Order Comment: Speci men Type: BLOOD SPECIMENOrdering Facility: [facility] Address: [address] [place] [address] Performed By: #### 5 8410-2 ####[facility] LABCLIA [id number] [place] [id number] [place] WBC (Bld) [#/Vol] 5.21 10*3/uL Normal 3.70-11.00 [facility] Comment on above: Order Comment: Speci men Type: BLOOD SPECIMENOrdering Facility: [facility] Address: [address] [place] [address] Performed By: #### 5 8410-2 ####[facility] [id number] [place] [id number] [place] Calcium.ionized [Moles/Vol]o n 10-08-2024 Calcium.ionized (Bld) [Mass/Vol] 1.28 mmol/L Normal 1.08-1.30 [facility] Comment on above: Order Comment: Speci men Type: BLOOD SPECIMENOrdering Facility: [facility] Address: [address] [place] [address] Performed By: #### 1 995-0 ####[facility] [id number] [place] [address] [place] Calcium.ionized adjusted to pH 7.4 (Bld) [Moles/Vol] 1.25 mmol/L Normal 1.08-1.30 [facility] Comment on above: Order Comment: Speci men Type: BLOOD SPECIMENOrdering Facility: [facility] Address: [address] [place] [address] Performed By: #### 1 995-0 ####[facility] [id number] [place] [id number] [place] Comprehensive metabolic 2000 panelon 10-08-2024 Albumin [Mass/Vol] 4.7 g/dL Normal 3.9-4.9 [facility] Comment on above: Order Comment: Speci men Type: BLOOD SPECIMENOrdering Facility: [facility] Address: [address] [place] [address] Performed By: #### 2 4323-8, 54266-4, 2731-8, 3016-3 ####[facility] [id number] [address] [place] ALP [Catalytic activity/Vol] 42 U/L Normal 34-123 [facility] Comment on above: Order Comment: Speci men Type: BLOOD SPECIMENOrdering Facility: [facility] Address: [address] [place] [address] Performed By: #### 2 4323-8, 43700-4, 2731-8, 3016-3 ####[facility] LABCLIA [id number] [place] [address] [place] ALT [Catalytic activity/Vol] 15 U/L Normal 7-38 [facility] Comment on above: Order Comment: Speci men Type: BLOOD SPECIMENOrdering Facility: [facility] Address: [address] [place] [address] Performed By: #### 2 4323-8, 98044-6, 2731-8, 3016-3 ####[facility] [id number] [place] [address] [place] Anion gap [Moles/Vol] 14 mmol/L Normal 8-15 [facility] Comment on above: Order Comment: Speci men Type: BLOOD SPECIMENOrdering Facility: [facility] Address: [address] [place] [address] Performed By: #### 2 4323-8, 50145-7, 2731-8, 3016-3 ####[facility] [id number] [place] [address] [place] AST [Catalytic activity/Vol] 15 U/L Normal 13-35 [facility] Comment on above: Order Comment: Speci men Type: BLOOD SPECIMENOrdering Facility: [facility] Address: [address] [place] [address] Performed By: #### 2 4323-8, 89321-6, 2731-8, 3016-3 ####[facility] [id number] [place] [id number] [place] Bilirubin [Mass/Vol] 0.6 mg/dL Normal 0.2-1.3 [facility] Comment on above: Order Comment: Speci men Type: BLOOD SPECIMENOrdering Facility: [facility] Address: [address] [place] [address] Performed By: #### 2 4323-8, 35071-9, 2731-8, 3016-3 ####[facility] [id number] [address] [address] [place] Calcium [Mass/Vol] 9.7 mg/dL Normal 8.5-10.2 [facility] Comment on above: Order Comment: Speci men Type: BLOOD SPECIMENOrdering Facility: [facility] Address: [address] [place] [address] Performed By: #### 2 4323-8, 74954-4, 2731-8, 3016-3 ####[facility] [id number] [place] [id number] [place] Chloride [Moles/Vol] 105 mmol/L Normal 98-107 [facility] Comment on above: Order Comment: Speci men Type: BLOOD SPECIMENOrdering Facility: [facility] Address: [address] [place] [address] Performed By: #### 2 4323-8, 98486-2, 273-8, 3016-3 ####[facility] [id number] [place] [id number] [place] CO2 [Moles/Vol] 23 mmol/L Normal 22-30 [facility] Comment on above: Order Comment: Speci men Type: BLOOD SPECIMENOrdering Facility: [facility] Address: [address] [place] [address] Performed By: #### 2 4323-8, 07294-9, 273-8, 3016-3 ####[facility] [id number] [place] [id number] [place] Creatinine [Mass/Vol] 0.67 mg/dL Normal 0.58-0.96 [facility] Comment on above: Order Comment: Speci men Type: BLOOD SPECIMENOrdering Facility: [facility] Address: [address] [place], [place] [address] Performed By: #### 2 4323-8, 56017-8, 2731-8, 3016-3 ####[facility] [id number] [place] [id number] [place] eGFRcr SerPlBld CKD-EPI 2020 99 mL/min/1.73m??? Normal >=60 [facility] Comment on above: Order Comment: Luis Enrique norton Type: BLOOD SPECIMENOrdering Facility: [facility] Address: [address] [place] [address] Result Comment: Chantell mated Glomerular Filtration Rate (eGFR) is calculated using the 2020 CKD-EPI creatinine equation. This equation utilizes serum creatinine, sex, and age as parameters. The creatinine assay has traceable calibration to isotope dilution-mass spectrometry. Refer to KDIGO guidelines for clinical interpretation. In patients with unstable renal function, e.g. those with acute kidney injury, the eGFR may not accurately reflect actual GFR. Performed By: #### 2 4323-8, 41747-3, 2730-8, 3016-3 ####[facility] [id number] [place] [id number] [place] Glucose [Mass/Vol] 89 mg/dL Normal 74-99 [facility] Comment on above: Order Comment: Luis Enrique norton Type: BLOOD SPECIMENOrdering Facility: [facility] Address: [address] [place] [address] Result Comment: The [place] Diabetes Association (ADA) provides guidance for cutoff values for fasting glucose and random glucose. The ADA defines fasting as no caloric intake for at least 8 hours. Fasting plasma glucose results between 100 to 125 mg/dL indicate increased risk for diabetes (prediabetes). Fasting plasma glucose results greater than or equal to 126 mg/dL meet the criteria for diagnosis of diabetes. In the absence of unequivocal hyperglycemia, results should be confirmed by repeat testing. In a patient with classic symptoms of hyperglycemia or hyperglycemic crisis, random plasma glucose results greater than or equal to 200 mg/dL meet the criteria for diagnosis of diabetes. Reference: Standards of Medical Care in Diabetes 2016, [place] Diabetes Association. Diabetes Care. 2016.39(Suppl 1). Performed By: #### 2 4323-8, 29004-0, 2731-8, 3016-3 ####[facility] LABCL[facility] [id number] [address] [address] [place] Potassium [Moles/Vol] 4.4 mmol/L Normal 3.7-5.1 [facility] Comment on above: Order Comment: Speci men Type: BLOOD SPECIMENOrdering Facility: [facility] Address: [address] [place] [address] Performed By: #### 2 4323-8, 69058-2, 2731-8, 3016-3 ####[facility] [id number] [address] [address] [place] Protein [Mass/Vol] 6.9 g/dL Normal 6.3-8.0 [facility] Comment on above: Order Comment: Speci men Type: BLOOD SPECIMENOrdering Facility: [facility] Address: [address] [place] [address] Performed By: #### 2 4323-8, 30640-0, 273-8, 3016-3 ####[facility] [id number] [address] [address] [place] Sodium [Moles/Vol] 142 mmol/L Normal 136-144 [facility] Comment on above: Order Comment: Speci men Type: BLOOD SPECIMENOrdering Facility: [facility] Address: [address] [place], [place] [address] Performed By: #### 2 4323-8, 17408-9, 273-8, 3016-3 ####[facility] [id number] [address] [address] [place] Urea nitrogen [Mass/Vol] 17 mg/dL Normal 7-21 [facility] Comment on above: Order Comment: Speci men Type: BLOOD SPECIMENOrdering Facility: [facility] Address: [address] [place] [address] Performed By: #### 2 4323-8, 82310-6, 2731-8, 3016-3 ####[facility] [id number] [place] [id number] [facility] HbA1c (Bld)on 10-08-2024 Average glucose Estimated from glycated hemoglobin (Bld) [Mass/Vol] 108 mg/dL Normal [facility] Comment on above: Order Comment: Speci men Type: BLOOD SPECIMENOrdering Facility: [facility] Address: [address] [place] [address] Result Comment: eAG: (Estimated average glucose) is a calculated value from HgbA1c and is contact representative of the average blood glucose level in the last 2-3 month period. Performed By: #### 5 5454-3 ####[facility] [id number] [address] HbA1c (Bld) [Mass fraction] 5.4 % Normal 4.3-5.6 [facility] Comment on above: Order Comment: Luis Enrique norton Type: BLOOD SPECIMENOrdering Facility: [facility] Address: [address] [place] [address] Result Comment: [place] Diabetes Association guidelines indicate that patients with HgbA1c in the range 5.7-6.4% are at increased risk for development of diabetes, and intervention by lifestyle modification may be beneficial. HgbA1c greater or equal to 6.5% is considered diagnostic of diabetes. Performed By: #### 5 5454-3 ####[facility] [id number] [place] [id number] [facility] Lipid 1996 panelon 5 Cholesterol [Mass/Vol] 217 mg/dL High <200 [facility] Comment on above: Order Comment: Luis Enrique norton Type: BLOOD SPECIMENOrdering Facility: [facility] Address: [address] [place] [address] Result Comment: <200 mg/dL, Desirable 200-239 mg/dL, Borderline high >239 mg/dL, High Performed By: #### 2 4323-8, 11850-5, 8, 6-3 ####[facility]CL[facility] [id number] [address] [address] [place] Cholesterol in HDL [Mass/Vol] 60 mg/dL Normal >39 [facility] Comment on above: Order Comment: Speci men Type: BLOOD SPECIMENOrdering Facility: [facility] Address: [address] [place] [address] Result Comment: 40-5 9 mg/dL, Acceptable >59 mg/dL, High: Negative risk factor for coronary heart disease <40 mg/dL, Low: Positive risk factor for coronary heart disease Performed By: #### 2 4323-8, 83154-5, 2730-10, 3015-3 ####[facility]CL[facility] [id number] [address] [address] [place] Cholesterol in LDL [Mass/Vol] 144 mg/dL High <100 [facility] Comment on above: Order Comment: Speci men Type: BLOOD SPECIMENOrdering Facility: [facility] Address: [address] [place] [address] Result Comment: <100 mg/dL, Optimal 100-129 mg/dL, Near optimal/above optimal 130-159 mg/dL, Borderline high 160-189 mg/dL, High >189 mg/dL, Very high Secondary prevention optimal LDL Cholesterol levels are recommended to be <70 mg/dL LDL cholesterol is calculated using the Marti-NIH equation. Performed By: #### 2 4323-8, 09725-3, 2730-10, 3015-3 ####[facility] [id number] [address] [address] [place] Cholesterol in LDL/Cholesterol in HDL [Mass ratio] 2.40 {ratio} Normal <2.54 [facility] Comment on above: Order Comment: Speci men Type: BLOOD SPECIMENOrdering Facility: [facility] Address: [address] [place] [id number] Result Comment: Abraham benitez: 1. National Cholesterol Education Program ATP III Guideline At-A-Glance Quick Desk Reference: National Heart, Lung, and Blood Lignite. National Institutes of Health. 2001: NIH Publication No. 01-3305. 2. An International Atherosclerosis Society position paper: global recommendations for the management of dyslipidemia: executive summary, Atherosclerosis. 2014: 232(2):410-413. Performed By: #### 2 4323-8, 04254-7, 2731-8, 3016-3 ####[facility]CL[facility] [id number] [place] [id number] [place] Cholesterol in VLDL [Mass/Vol] 14 mg/dL Normal <30 [facility] Comment on above: Order Comment: Speci men Type: BLOOD SPECIMENOrdering Facility: [facility] Address: [address] [place] [address] Performed By: #### 2 4323-8, 31682-9, 2731-8, 3016-3 ####[facility] [id number] [place] [address] [place] Cholesterol non HDL [Mass/Vol] 157 mg/dL High <130 [facility] Comment on above: Order Comment: Tanvii men Type: BLOOD SPECIMENOrdering Facility: [facility] Address: [address] [place] [address] Result Comment: <130 mg/dL, Optimal 130-159 mg/dL, Near optimal/above optimal 160-189 mg/dL, Borderline high 190-219 mg/dL, High >219 mg/dL, Very high Secondary prevention optimal non HDL Cholesterol levels are recommended to be <100 mg/dL Performed By: #### 2 4323-8, 51727-7, 2731-8, 3016-3 ####[facility] [id number] [place] [id number] [place] Cholesterol.total/Keysha sterol in HDL [Mass ratio] 3.62 {ratio} Normal <5.10 [facility] Comment on above: Order Comment: Speci men Type: BLOOD SPECIMENOrdering Facility: [facility] Address: [address] [place] [address] Performed By: #### 2 4323-8, 96711-6, 1-8, 6-3 ####[facility] [id number] [address] [place] [address] [place] FASTING TIME 12 hrs Normal [facility] Comment on above: Order Comment: Speci men Type: BLOOD SPECIMENOrdering Facility: [facility] Address: [address] [place] [id number] Performed By: #### 2 4323-8, 21402-8, 2730-8, 6-3 ####[facility] [id number] [address] [place] [address] [place] Triglyceride [Mass/Vol] 76 mg/dL Normal <150 [facility] Comment on above: Order Comment: Speci men Type: BLOOD SPECIMENOrdering Facility: [facility] Address: [address] [place] [place] [id number] Result Comment: <150 mg/dL, Normal 150-199 mg/dL, Borderline high 200-499 mg/dL, High >499 mg/dL, Very high Performed By: #### 2 4323-8, 31843-5, 2730-8, 6-3 ####[facility] [id number] [address] [place] [address] [place] PTH-Intact SerPl-ncon 09-21 Parathyrin.intact [Mass/Vol] 48 pg/mL Normal 15-65 [facility] Comment on above: Order Comment: Speci men Type: BLOOD SPECIMENOrdering Facility: [facility] Address: [address] [place] [address] Performed By: #### 2 4323-8, 87940-2, 2730-8, 6-3 ####[facility] LABCLIA [id number] [address] [place] [address] [place] TSH SerPl-aCncon 10-08-2024 TSH Qn 1.260 m[IU]/L Normal 0.270-4.200 [facility] Comment on above: Order Comment: Speci men Type: BLOOD SPECIMENOrdering Facility: [facility] Address: [address] [place] [address] Performed By: #### 2 4323-8, 60683-3, 2731-8, 3016-3 ####[facility] LABCLIA [id number] YOSEPH MARCOSK [address] OF [facility] CNOVon 10-04-2024 CNOV Office Visit (INTMMN ) FANG KILLIAN ([id number]) 1960 F Date Time Provider Department 10/04/24 3:20 PM BILL EUEGNE INTMMN During your visit today, we recorded the following information about you: Pulse Blood pressure 75/minute 128/86 Ross Sanders MD, PhD 10/04/2024 7:31 PM Signed Internal Medicine Outpatient Visit October 04, 2024 Preceptor: Dr. Tommy MD, PhD Chief complaint: Patient presents with: F/U 6 months HPI: 63 year old female patient with PMHx of hypertension, L breast cancer s/p mastectomy 01/13 (on anastrozole), recurrent diverticulitis and recent diagnosis of osteoporosis here today for follow up. Continues with chest discomfort, but was recently seen by Cardiology with unremarkable concerns. Had 1 episode of possible diverticulitis: fever + left side pain with local pain that improved after around 6 weeks with controlled diet. No antibiotics or other treatment were tried. And she improved for the L abdominal pain. Allergies: ALLERGIES Allergen Reactions Seasonal Allergies Other: See Comments Active Medications: alendronate (FOSAMAX) 70 mg tablet PLEASE SEE ATTACHED FOR DETAILED DIRECTIONS DHEA vaginal suppository 13 mg (CPD) Unwrap 1 suppository and insert every night in vagina as directed for the first 2 weeks, and then every other day for 2 months. Then twice a week. lisinopril 2.5 mg tablet Take 1 tablet by mouth once daily. cholecalciferol (VITAMIN D) 1,000 unit tab tablet Take 2 tablets by mouth once daily. anastrozole (ARIMIDEX) 1 mg tablet Take 1 tablet by mouth once daily. iv contrast (will be provided with radiology test) MRI Breast DALE Inject, intravenously, once for 1 dose. No IV access, insert saline lock prior to the beginning of sedation, infusion, injection of imaging exam. Discontinue saline lock post exam. If Pt has a central line or IVAD, may access for administration according to line specific nursing protocol. Once exam is complete flush line and de-access according to line specific nursing protocol in the MR contrast administration guidelines link (Patient not taking: Reported on 10/04/2024) Past Medical History: PAST MEDICAL HISTORY Diagnosis Date Breast cancer (HCC) 12/2022 s/p L mastectomy, no chemo, XRT; on anastrazole Cystocele with prolapse s/p hysterectomy Diverticulitis 03/15/2021 Dyslipidemia Essential hypertension situational- trying to get off medication Hypertension 2019 Mixed hyperlipidemia Diet Controlled - Vegan Multiple cysts of breast Spider veins of limb Uterine prolapse Vegan diet Social History: Social History Tobacco Use Smoking status: Never Smokeless tobacco: Never Vaping Use Vaping status: Never Used Substance Use Topics Alcohol use: Not Currently Comment: rare Drug use: Never Vitals: BP 128/86 Pulse 75 Physical Exam: Physical Exam Constitutional: Appearance: Normal appearance. Eyes: Extraocular Movements: Extraocular movements intact. Pupils: Pupils are equal, round, and reactive to light. Cardiovascular: Rate and Rhythm: Normal rate and regular rhythm. Pulmonary: Effort: Pulmonary effort is normal. Breath sounds: Normal breath sounds. Abdominal: General: Abdomen is flat. Bowel sounds are normal. Palpations: Abdomen is soft. Neurological: Mental Status: She is alert. Labs and Imaging Reviewed: 01/06/2024: TSH 1.73; Hg 13.5; normal electrolytes; LDL 133 Assessment/Plan: 63 year old female patient here today with plan as follows: ASSESSMENT/PLAN: 1. Mixed hyperlipidemia - ICD9: 272.2, ICD10: E78.2 (primary diagnosis) - Most recent lipid panel: Cholesterol, Total Date Value Ref Range Status 01/06/2024 209 (H) <200 mg/dL Final Comment: <200 mg/dL, Desirable 200-239 mg/dL, Borderline high >239 mg/dL, High HDL Cholesterol Date Value Ref Range Status 01/06/2024 59 >39 mg/dL Final Comment: 40-59 mg/dL, Acceptable >59 mg/dL, High: Negative risk factor for coronary heart disease <40 mg/dL, Low: Positive risk factor for coronary heart disease LDL Cholesterol, Calculated Date Value Ref Range Status 01/06/2024 133 (H) <100 mg/dL Final Comment: <100 mg/dL, Optimal 100-129 mg/dL, Near optimal/above optimal 130-159 mg/dL, Borderline high 160-189 mg/dL, High >189 mg/dL, Very high Secondary prevention optimal LDL Cholesterol levels are recommended to be < 70 mg/dL Triglyceride Date Value Ref Range Status 01/06/2024 84 <150 mg/dL Final Comment: <150 mg/dL, Normal 150-199 mg/dL, Borderline high 200-499 mg/dL, High >499 mg/dL, Very high Plan: - Continue off medications (althought elevated LDL, she is not interested in starting statin and now with normal coronary CTA, we have low concerns) - HEMOGLOBIN A1C - THYROID STIMULATING HORMONE 2. Hypertension, unspecified type - ICD9: 401.9, ICD10: I10 - Controlled - Diane brojovan (more content not included)... Normal [facility] CNOV Office Visit (ENDOMN ) FANG KILLIAN ([id number]) 1960 F Date Time Provider Department 10/04/24 9:00 AM PETTY SHEA ENDOMN During your visit today, we recorded the following information about you: Pulse Blood pressure Weight 70/minute 147/84 61.5 kg Petty Shea MD 10/04/2024 10:02 AM Signed Endocrinology Virtual Visit This is a virtual visit using MyChart Zoom Video Visit. It required patient-provider interaction for the medical decision making as documented below. I have communicated my name and active licensure. The patient's identity and physical location were verified at the time of this visit. Either the patient or their legal contact representative has been informed of the risks and benefits of -- and alternatives to -- treatment through a remote evaluation and consents to proceed with the evaluation remotely. HPI: Fang is a 63 year old female with a hx of liver and kidney cysts and recently dx with breast cancer s/p mastectomy and was found to have hypercalcemia she si also on anastrazole and , and was started on vitamin d 50,000 units weekly for vitamin D of 24 by nephrology, no recent fx, no kidney stones, recent CT kidney cysts seeing urology. Her recent DXA scan showed osteoporosis in spine T score -3.1 is going to discuss with oncology for bisphosphonate and we reviewed the risk of ONJ and AFF she will check with her dentist as well, we discussed that due to being on anastrozle and low T score in spine , even if we do surgery for parathyroid issues, we still need a short term tx with bisphosphatase. She will check with her oncology team. reviewed labs recent PTH and vitamin D and calcium are normal, however 24 hr urine calcium was elevated off high dose weekly vitamin D recheck labs, she wants to try fosamax for now rather than reclast or prolia, her dentist has oked it as well agreed with risk of ONJ and AFF. On fosamax , no acute issues, check DXA scan and calcium , vitamin D and 24 hr urine calcium.Parathyroid scan was negative Prior biochemical work-up: Labs Latest Reference Range AND Units 01/23/23 12:10 03/28/23 12:02 Sodium 136 - 144 mmol/L 144 Potassium 3.7 - 5.1 mmol/L 4.8 Chloride 97 - 105 mmol/L 106 (H) CO2 22 - 30 mmol/L 26 BUN 7 - 21 mg/dL 14 Creatinine 0.58 - 0.96 mg/dL 0.67 Glucose 74 - 99 mg/dL 98 Calcium 8.5 - 10.2 mg/dL 10.3 (H) Ionized Calcium 1.08 - 1.30 mmol/L 1.34 (H) Normalized Calcium 1.08 - 1.30 mmol/L 1.29 Phosphorus 2.7 - 4.8 mg/dL 4.1 Albumin 3.9 - 4.9 g/dL 4.9 Anion Gap 9 - 18 mmol/L 12 eGFR >=60 mL/min/1.73m? 100 Cholesterol, Total <200 mg/dL 289 (H) Triglyceride <150 mg/dL 65 Fasting Time hrs 12 HDL Cholesterol >39 mg/dL 101 LDL Cholesterol <100 mg/dL 175 (H) VLDL Cholesterol <30 mg/dL 13 TC:HDL Ratio <5.10 2.86 LDL:HDL Ratio <2.54 1.73 Non HDL Cholesterol <130 mg/dL 188 (H) Vit D1,25 Dihydroxy 19.9 - 79.3 pg/mL 64.4 Vitamin D 25 Hydroxy 31.0 - 80.0 ng/mL 24.9 (L) Creatinine, Ur Random (UCRR) 20.0 - 300.0 mg/dL 45.3 Protein, Urine Random 0 - 20 mg/dL 5 Hemoglobin A1C 4.3 - 5.6 % 5.3 Estimated Average Glucose mg/dL 105 TSH 0.270 - 4.200 mIU/L 1.020 PTH, Intact 15 - 65 pg/mL 58 (H): Data is abnormally high (L): Data is abnormally low Prior Imaging: IMPRESSION: Numerous liver cysts. A few subcentimeter low-attenuation lesions in the kidneys with attenuation not compatible with simple cysts. Close follow-up is suggested. Colonic diverticulosis without evidence of diverticulitis. Irregular soft tissue density along the left pelvis, likely from left ovary or adnexa. Clinical correlation is suggested. THE LOWEST T-SCORE IS -3.1 IN THE SPINE 1) DIAGNOSIS (based on BMD alone): OSTEOPOROSIS Caution: Medical conditions other than osteoporosis may cause low bone density, such as osteomalacia or renal osteodystrophy. Clinical correlation is necessary. 2) FRACTURE RISK (Based on TBS adjusted FRAX): 10-year absolute fracture risk: - major osteoporotic fracture = 9.9 % - hip fracture = 1.5 % - A diagnosis of Osteoporosis, a 10 year probability of hip fracture greater than or equal to 3% or a 10 year probability of any major osteoporosis-related fracture greater than or equal to 20% should be considered for treatment. - DXA scanner generated FRAX calculations may slightly differ from online FRAX calculations due to differences in software versions. - All recommendations and calculations are to be considered as guidelines and should not replace sound clinical judgement - Caution: Fracture risk may be increased independent of BMD in patients with corticosteroid use, age greater than 65 years, or a history of prior fragility fracture. RECOMMENDATIONS: Follow-up in 2 years or as clinically indicated. Patients that are taking corticosteroids, are transplant recipients or have (more content not included)... Normal [facility] CNOVSPon 10-04-2024 CNOVSP Visit (SP) Office (HEMCA4) FANG KILLIAN ([id number]) 1960 F Date Time Provider Department 10/04/24 1:30 PM BRUNA NATHAN HEMCA4 During your visit today, we recorded the following information about you: Temperature Pulse Respiration Blood pressure 98 degrees 75/minute 18/minute 118/76 Weight 61.6 kg Bruna Nathan APRN.HEAD OF ACADEMIC TECHNOLOGY 10/04/2024 2:28 PM Signed Some elements of all sections of this documentation were copied from my previous note of November 27, 2023 and have been re-examined and updated where appropriate. All elements reflect the current assessment and medical decision making of today, October 04, 2024 ATTENDING PHYSICIAN: Dr. Kimberlee Lion IDENTIFICATION: Fang Killian is a 63 year old woman with a history of a [id number], ER positive (91%), WY positive (61-70%), Suq7qfk negative (IHC 2+), (oncotype dx recurrence score of 13), Infiltrating ductal carcinoma (grade 2) of the left breast, diagnosed in November 2022. REASON FOR VISIT / CHIEF COMPLAINT: routine 6 month follow up SURVIVORSHIP VISIT: March 28, 2023 CURRENT SYSTEMIC THERAPY FOR BREAST CANCER: ~ Anastrozole 1 mg daily PAST THERAPY FOR BREAST CANCER: ~ Left mastectomy with SLNBx (01/15/23; micrometastasis of 1 [address] and isolated tumor cells of 1 LN total of 5 LN examined; 1.5 cm) ~ Anastrozole (02/08/23-present) INTERVAL HISTORY: Pt presents today by herself. She reports that she is taking her Anastrozole 1 mg daily as prescribed with minimal difficulty. On 05/26/2022, patient underwent a right-sided mammogram and ultrasound, which revealed heterogeneously dense breast tissue. She has been on a regimen of alternating 6-month mammograms and ultrasounds due to ongoing concerns about a blocked duct and a sensation of tugging. Patient reports no nausea, vomiting, cough, or bone pain. She experiences occasional headaches related to stress but denies any increase in frequency or severity. She also denies any diplopia. She reports exertional dyspnea associated with post-exertional malaise, which resolves with rest. This has been ongoing and is being managed with cardiology through an exercise regimen initiated 6 weeks ago. She notes no improvement in symptoms but no worsening either. She continues to take anastrozole without issues and is on Fosamax for osteoporosis management. She is scheduled for a bone density scan in 3-4 months per endocrinology. She reports that she is doing regular breast exams and denies any concerns related to the same. She also confirms that she does have a primary care provider (Ross Sanders MD, PhD), which she verifies she is following up with regularly for her routine health maintenance. REVIEW OF SYSTEMS: The remainder of the review of systems is unremarkable. PERSONAL MEDICAL / SURGICAL HISTORY: Personal medical / surgical history reviewed SIGNIFICANT (CANCER) FAMILY MEDICAL HISTORY: Father- prostate cancer PHYSICAL EXAM: BP 118/76 Pulse 75 Temp 36.7 ?C (98 ?F) (Temporal) Resp 18 Wt 61.6 kg (135 lb 12.9 oz) SpO2 98% BMI 21.92 kg/m? General appearance: well appearing, alert, in no acute distress Skin: Skin color, texture, turgor normal, no rashes or lesions Head: unremarkable Neck: Supple, no adenopathy Lungs: lungs clear to auscultation, no wheezing or rhonchi Heart: Negative, RRR Abdomen: Normal abdominal exam, Abdomen soft, non-tender. No masses, organomegaly Extremities:Extremiti es normal. No deformities or edema Breasts: Left breast exam reveals mastectomy without reconstruction, there is no axillary adenopathy, concerning skin changes or palpable lesions Right breast inspection negative, again there is no axillary adenopathy, concerning skin changes or palpable lesions LABS/IMAGING: No labs done at time of today's visit Right Antonio-mammogram/US (May 26, 2024: IMPRESSION: Dilated duct in the retroareolar region of the right breast is probably benign. A follow-up in 6 months is recommended. Bone density (02/07/2023): Osteoporosis; with the lowest t-score of -3.1 IMPRESSION: a history of a [id number], ER positive (91%), WY positive (61-70%), Oje3arb negative (IHC 2+), (oncotype dx recurrence score of 13), Infiltrating ductal carcinoma (grade 2) of the left breast, diagnosed in November 2022, s/p left mastectomy with SLNBx; current therapy: anastrozole, no evidence of disease recurrence at the time of today's exam. PLAN: After evaluation and review of the ongoing treatment plan, the following referral/recommendati ons have been made. (C50.919) Invasive carcinoma of breast (HCC) (primary encounter diagnosis) (Z87.898) History of abnormal mammogram Plan: ERIK DIAG W ANTONIO RIGHT, US BREAST LTD RIGHT - Continue with active therapy in the adjuvant setting for breast cancer (with curative intent): Anastrozole 1 mg daily with intent of completin (more content not included)... Normal [facility] EXERCISE STRESS ECG (WITHOUT IMAGING)on 07-24-2024 Stress ECG Report: Exercise Stress ECG (without Imaging) [facility] [id number]-2 Date of service: 07/23/2024 1:17:33 PM ADVISOR Ordering physician: ARLEEN GARZA medical specialist: Kristen Sen Policy Manager: Joe Winchester Interpreting physician: Fannie Ruiz MD Patient name: FANG KILLIAN Age: 63 years Gender: F Height: 167.64 cm BSA: 1.73 m Weight: 64.41 kg BMI: 22.9 kg/m Indication: Chest pressure / Chest tightness, Shortness of breath and Exercise counseling Stress ECG Conclusion: Conclusion: Normal with exception due to exercise diastolic hypertension and nonsustained atrial arrhythmia Comments: 8 beat run of SVT during exercise. No symptoms noted. Stress ECG Summary: The patient's resting heart rate was 77 bpm and blood pressure was 130/98 mmHg. The patient exercised according to the cycle protocol. The estimated end-exercise MET level achieved was 5.2, which is within the 50th to 70th percentile for age and sex. The test was terminated due to general fatigue and the total exercise time was 10 minutes and 58 seconds. No symptoms provoked during stress. The maximum heart rate was 155 bpm, which is 99% of the predicted heart rate for age. This is an adequate heart rate response. Peak blood pressure was 182/108 mmHg. The double product achieved was 05053. Resting ECG: Normal Sinus Rhythm and Nonspecific St-T Wave Changes Exercise Protocol: cycle Cycle work-rate increment: 10 Looney/min Cycle Exercise Table: +------+----+-----+-- --------+---+---+---+ ----+---+----+ Stage RPM LOONEY Time (min) HR SYS PRACHI RPE SOB METS +------+----+-----+-- --------+---+---+---+ ----+---+----+ 1 65.0 0.0 2.0 89 142 96 6.0 0.0 0.0 +------+----+-----+-- --------+---+---+---+ ----+---+----+ 2 62.0 20.0 4.0 108 160 106 8.0 0.5 1.2 +------+----+-----+-- --------+---+---+---+ ----+---+----+ 3 65.0 40.0 6.0 117 156 90 11.0 1.0 2.4 +------+----+-----+-- --------+---+---+---+ ----+---+----+ 4 60.0 60.0 8.0 136 168 100 13.0 4.0 3.7 +------+----+-----+-- --------+---+---+---+ ----+---+----+ 5 58.0 80.0 10.0 151 182 108 15.0 4.0 4.9 +------+----+-----+-- --------+---+---+---+ ----+---+----+ +-----+----+-----+--- -------+---+---+---+- ---+---+----+ RPM LOONEY Time (min) HR SYS PRACHI RPE SOB METS +-----+----+-----+--- -------+---+---+---+- ---+---+----+ Final 55.0 90.0 10.97 155 182 108 17.0 5.0 5.2 +-----+----+-----+--- -------+---+---+---+- ---+---+----+ +------+ ----+ Stage Arrhythmias +------+ ----+ 3 Rare PAC (<3/min) +------+ ----+ 4 Rare PAC (<3/min) and Nonsustained SVT +------+ ----+ Recovery Table: +------+ +-- -+---+---+ Stage Time (min) HR SYS PRACHI +------+ +-- -+---+---+ 1 1.0 137 180 96 +------+ +-- -+---+---+ 2 2.0 125 158 94 +------+ +-- -+---+---+ 3 3.0 107 150 88 +------+ +-- -+---+---+ 4 5.0 110 140 96 +------+ +-- -+---+---+ +-----+ ----+ Stage Arrhythmias +-----+ ----+ 1 Rare PVC (<3/min) and Rare PAC (<3/min) +-----+ ----+ Stress Observations: Resting HR: 77 bpm Peak HR: 155 bpm (99% MPHR) Resting BP: 130 / 98 mmHg Peak BP: 182 / 108 mmHg Total exercise time: 10 minutes 58 seconds METS achieved: 5.2 Rate Pressure Product (RPP): 79362 Stress Exercise Observations: Reason for test termination: general fatigue, Symptoms during test: No symptoms provoked during stress, Heart rate response: Adequate heart rate response, Blood pressure response: Resting hypertension and Exercise diastolic hypertension, ST segment and T wave changes: No ST changes and Arrhythmias: PACs and Nonsustained SVT with stress Metabolic Exercise Data Variable: Observed value [Expected Range] HGI: 1.8 [>1.06 bpm/mmHg] Final -------- Stress Dial Buffer Report: Exercise Stress ECG (without Imaging) [place] [address] Date of service: 07/23/2024 1:17:33 PM ADVISOR Supervising physician: Lorena Ruiz MD PATIENT: Name: FANG KILLIAN Age: 63 years Gender: F The supervising physician was in the department and immediately available. Final See Link below for Image [facility] CNOVon 07-23-2024 CNOV Office Visit (CARD P ) CONSTANTINFANG Arian ([id number]) 1960 F Date Time Provider Department 07/23/24 12:45 PM [facility] C[facility] During your visit today, we recorded the following information about you: Pulse Blood pressure Weight Height 78/minute 142/96 64.8 kg 1.676 m Arleen Garza, BETO.HEAD OF ACADEMIC TECHNOLOGY 07/28/2024 11:49 PM Signed [facility] [place] [facility] Department of Cardiovascular Medicine SECTION OF PREVENTIVE CARDIOLOGY 07/23/2024 Fang Killian CHIEF COMPLAINT Ms. Killian is a 63 year old White female seen today. Patient presents with: Exercise Prescription PAST MEDICAL HISTORY Diagnosis Date Breast cancer (HCC) 12/2022 s/p L mastectomy, no chemo, XRT; on anastrazole Cystocele with prolapse s/p hysterectomy Diverticulitis 03/15/2021 Dyslipidemia Essential hypertension situational- trying to get off medication Hypertension 2019 Mixed hyperlipidemia Diet Controlled - Vegan Multiple cysts of breast Spider veins of limb Uterine prolapse Vegan diet PAST SURGICAL HISTORY Procedure Laterality Date COLONOSCOPY 05/2022 Dr. Chirinos, repeat in 10 years per patient COLONOSCOPY GEN ANES 2012 Dr. Chirinos-reportedly negative/normal. MASTECTOMY, SIMPLE, COMPLETE Left 12/2022 TOTAL ABD HYSTERECTOMY+BLAD REPR 11/02/2019 for tx of uterine and bladder prolapse. CAD EVENTS; None PVD EVENTS: None CVD EVENTS: None Ejection Fraction: Normal (>50%) CURRENT CARDIOVASCULAR SYMPTOMS: Intermittent Claudication: No Chest Pain: Had left mastectomy in 12/2022 and never got energy back. In 2023, described as a weird sensation, tightness of 8/10 in mid left chest. Can be constant over several days. Has a lack of energy. Sometimes energy is good and sometimes it is bad. Had CTA coronary on 01/28/24 that as negative for CAD. Shortness of Breath with Exertion:Yes, even just walking from a car. If gets out of bed and legs feel jellylike will know it will be a bad day with lack of energy Lightheadedness/dizzi ness: No Palpitations: Not often, but it will feel like it is racing. CURRENT OUTPATIENT MEDICATIONS: Current Outpatient Medications Medication Sig iv contrast (will be provided with radiology test) MRI Breast DALE Inject, intravenously, once for 1 dose. No IV access, insert saline lock prior to the beginning of sedation, infusion, injection of imaging exam. Discontinue saline lock post exam. If Pt has a central line or IVAD, may access for administration according to line specific nursing protocol. Once exam is complete flush line and de-access according to line specific nursing protocol in the MR contrast administration guidelines link alendronate (FOSAMAX) 70 mg tablet PLEASE SEE ATTACHED FOR DETAILED DIRECTIONS DHEA vaginal suppository 13 mg (CPD) Unwrap 1 suppository and insert every night in vagina as directed for the first 2 weeks, and then every other day for 2 months. Then twice a week. lisinopril 2.5 mg tablet Take 1 tablet by mouth once daily. cholecalciferol (VITAMIN D) 1,000 unit tab tablet Take 2 tablets by mouth once daily. anastrozole (ARIMIDEX) 1 mg tablet Take 1 tablet by mouth once daily. No current facility-administered medications for this visit. ALLERGIES ALLERGIES Allergen Reactions Seasonal Allergies Other: See Comments PAST FAMILY AND SOCIAL HISTORY FAMILY HISTORY Problem Relation Age of Onset No Known Problems Mother Arthritis Father Heart Attack Father 65 UT age 65; age 80's Prostate Cancer Father No Known Problems Sister No Known Problems Maternal Grandmother No Known Problems Maternal Grandfather No Known Problems Paternal Grandmother No Known Problems Paternal Grandfather other (Pulmonary Embolus) Daughter No Known Problems Daughter No Known Problems Son No Known Problems Son Social History Tobacco Use Smoking status: Never Smokeless tobacco: Never Vaping Use Vaping status: Never Used Alcohol use: Not Currently Comment: rare Drug use: Never PATIENT ENTERED QUESTIONNAIRE SCORES 07/17/2024 PHQ-9 PHQ-2 Score 1 PHQ-9 Score 4 07/17/2024 05/27/2024 03/08/2024 DONOVAN - 2/7 SCORES DONOVAN-2 Score 1 2 0 DONOVAN-7 Score 4 07/17/2024 Mediterranean Diet Assessment Tool Score 10 (Consistent with a Mediterranean style diet) 07/17/2024 03/26/2024 12/30/2023 PROMIS Global Health - (T-Scores - the mean of general population = 50. Five points is a clinically meaningful difference.) Physical T-Score 42.3 47.7 44.9 Mental T-Score 50.8 53.3 48.3 LIFESTYLE: Tobacco Use: Never DIET Current Diet: Vegan, has been trying to increase protein by adding in some dairy. Compliance: Based on review of the patient's diet history, reported compliance is Regular. Rediness for Change:Maintenance (working to prevent relapse) Barriers: none EXERCISE History: Until 2019 (more content not included)... Normal [facility] EXERCISE STRESS ECG (WITHOUT IMAGING)on 07-23-2024 EXERCISE STRESS ECG (WITHOUT IMAGING) Stress ECG Report: Exercise Stress ECG (without Imaging) [facility] Date of service: 07/23/2024 1:17:33 PM ADVISOR Ordering physician: ARLEEN GARZA medical specialist: Kristen Sen Policy Manager: Joe Winchester Interpreting physician: Fannie Ruiz MD Patient name: FANG KILLIAN Age: 63 years Gender: F Height: 167.64 cm BSA: 1.73 m Weight: 64.41 kg BMI: 22.9 kg/m Indication: Chest pressure / Chest tightness, Shortness of breath and Exercise counseling Stress ECG Conclusion: Conclusion: Normal with exception due to exercise diastolic hypertension and nonsustained atrial arrhythmia Comments: 8 beat run of SVT during exercise. No symptoms noted. Stress ECG Summary: The patient's resting heart rate was 77 bpm and blood pressure was 130/98 mmHg. The patient exercised according to the cycle protocol. The estimated end-exercise MET level achieved was 5.2, which is within the 50th to 70th percentile for age and sex. The test was terminated due to general fatigue and the total exercise time was 10 minutes and 58 seconds. No symptoms provoked during stress. The maximum heart rate was 155 bpm, which is 99% of the predicted heart rate for age. This is an adequate heart rate response. Peak blood pressure was 182/108 mmHg. The double product achieved was [address]. Resting ECG: Normal Sinus Rhythm and Nonspecific St-T Wave Changes Exercise Protocol: cycle Cycle work-rate increment: 10 Looney/min Cycle Exercise Table: +------+----+-----+-- --------+---+---+---+ ----+---+----+ Stage RPM LOONEY Time (min) HR SYS PRACHI RPE SOB METS +------+----+-----+-- --------+---+---+---+ ----+---+----+ 1 65.0 0.0 2.0 89 142 96 6.0 0.0 0.0 +------+----+-----+-- --------+---+---+---+ ----+---+----+ 2 62.0 20.0 4.0 108 160 106 8.0 0.5 1.2 +------+----+-----+-- --------+---+---+---+ ----+---+----+ 3 65.0 40.0 6.0 117 156 90 11.0 1.0 2.4 +------+----+-----+-- --------+---+---+---+ ----+---+----+ 4 60.0 60.0 8.0 136 168 100 13.0 4.0 3.7 +------+----+-----+-- --------+---+---+---+ ----+---+----+ 5 58.0 80.0 10.0 151 182 108 15.0 4.0 4.9 +------+----+-----+-- --------+---+---+---+ ----+---+----+ +-----+----+-----+--- -------+---+---+---+- ---+---+----+ RPM LOONEY Time (min) HR SYS PRACHI RPE SOB METS +-----+----+-----+--- -------+---+---+---+- ---+---+----+ Final 55.0 90.0 10.97 155 182 108 17.0 5.0 5.2 +-----+----+-----+--- -------+---+---+---+- ---+---+----+ +------+ ----+ Stage Arrhythmias +------+ ----+ 3 Rare PAC (<3/min) +------+ ----+ 4 Rare PAC (<3/min) and Nonsustained SVT +------+ ----+ Recovery Table: +------+ +-- -+---+---+ Stage Time (min) HR SYS PRACHI +------+ +-- -+---+---+ 1 1.0 137 180 96 +------+ +-- -+---+---+ 2 2.0 125 158 94 +------+ +-- -+---+---+ 3 3.0 107 150 88 +------+ +-- -+---+---+ 4 5.0 110 140 96 +------+ +-- -+---+---+ +-----+ ----+ Stage Arrhythmias +-----+ ----+ 1 Rare PVC (<3/min) and Rare PAC (<3/min) +-----+ ----+ Stress Observations: Resting HR: 77 bpm Peak HR: 155 bpm (99% MPHR) Resting BP: 130 / 98 mmHg Peak BP: 182 / 108 mmHg Total exercise time: 10 minutes 58 seconds METS achieved: 5.2 Rate Pressure Product (RPP): 66301 Stress Exercise Observations: Reason for test termination: general fatigue, Symptoms during test: No symptoms provoked during stress, Heart rate response: Adequate heart rate response, Blood pressure response: Resting hypertension and Exercise diastolic hypertension, ST segment and T wave changes: No ST changes and Arrhythmias: PACs and Nonsustained SVT with stress Metabolic Exercise Data Variable: Observed value [Expected Range] HGI: 1.8 [>1.06 bpm/mmHg] Final -------- Stress Dial Buffer Report: Exercise Stress ECG (without Imaging) [place] [address] Date of service: 07/23/2024 1:17:33 PM ADVISOR Supervising physician: Lorena Ruiz MD PATIENT: Name: FANG KILLIAN Age: 63 years Gender: F The supervising physician was in the department and immediately available. Final [facility] Image : [id number] See Link below for Image Normal [facility] CNOVon 06-02-2024 CNOV Office Visit (CARD P ) FANG KILLIAN ([id number]) 1960 F Date Time Provider Department 06/02/24 1:30 PM MORELIA MILLS During your visit today, we recorded the following information about you: Pulse Blood pressure Weight Height 68/minute 134/79 63.5 kg 1.676 m Morelia Mills MD 06/02/2024 10:22 PM Signed [facility] [place] [facility] Department of Cardiovascular Medicine SECTION OF PREVENTIVE CARDIOLOGY Fang Killian 06/02/2024 CHIEF COMPLAINT: Patient presents with: CARD New Patient Consult HISTORY OF PRESENT CARDIOVASCULAR ILLNESS: Fang Killian is a 63 year old female who presents for chest pain. --chest pain weird sensation tightness rated: 8/10 location: mid L chest; L lateral breast symptoms upon waking radiation: none associated symptoms: tightness--no associated symptoms duration: constant over several days, waxing and waning frequency: fall 2023, occurred over period of 2 mos triggers: in retrospect, related to work stressors, son's medical issues; since stressors abated, chest tightness improved occurs when laying flat if awakens at night and upon awakening in the morning hard place in chest when leaning over lack of energy unable to walk fast or far --recently feeling improved, ?reason Denies shortness of breath, dyspnea on exertion, activity limitations, PND, orthopnea, LE edema, palpitations or history of syncope or near-syncope. CARDIAC RISK FACTORS: History question Answer Diagnosis Date Comment Hypertension : Hypertension 2020 Not specified Exercise: One to two per week Family History of CAD: Negative stretching 3-4x/week biking 15 min 1-2x/week, stationary bike planning outdoors biking decreased energy, activity in past yr as recovering from mastectomy for breast CA father [place] age 65 Avg. Sleep Hours Per Night?: 8 STATIN INTOLERANCE: Adverse Effect History of Statin Intolerance:: No Current Statin Freq: None USE OF PCSK9 INHIBITORS: CARDIOVASCULAR DISEASE HISTORY: Valve Disease: Arrhythmias: HEART FAILURE/CARDIOMYOPATH Y: RELATED DISEASE HISTORY: History question Answer Diagnosis Date Comment Breast cancer : Breast cancer (HCC) 12/2022 s/p L mastectomy, no chemo, XRT; on anastrazole PAST MEDICAL HISTORY: PAST MEDICAL HISTORY Diagnosis Date Breast cancer (HCC) 12/2022 s/p L mastectomy, no chemo, XRT; on anastrazole Cystocele with prolapse s/p hysterectomy Diverticulitis 03/15/2021 Essential hypertension situational- trying to get off medication Hypertension 2019 Mixed hyperlipidemia Diet Controlled - Vegan Multiple cysts of breast Spider veins of limb Uterine prolapse Vegan diet CURRENT MEDS: Current Outpatient Medications Medication Sig DHEA vaginal suppository 13 mg (CPD) Unwrap 1 suppository and insert every night in vagina as directed for the first 2 weeks, and then every other day for 2 months. Then twice a week. lisinopril 2.5 mg tablet Take 1 tablet by mouth once daily. cholecalciferol (VITAMIN D) 1,000 unit tab tablet Take 2 tablets by mouth once daily. anastrozole (ARIMIDEX) 1 mg tablet Take 1 tablet by mouth once daily. alendronate (FOSAMAX) 70 mg tablet PLEASE SEE ATTACHED FOR DETAILED DIRECTIONS No current facility-administered medications for this visit. 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 ) Years Of Education Completed: Not specified Marital Status: with 4 children Tobacco use in the last year: No Alcohol Use: Not Currently (rare) REVIEW OF SYSTEMS: positives appear in bold GENERAL:Negative for malaise, significant weight loss or gain and fever, fatigue HEENT:Negative for frequent or significant headaches, significant changes in vision or vision problems, significant ear problems or hearing loss, nasal discharge or nose bleeds and sore throat, difficulty swallowing, mouth lesions NECK:Negative for lumps, goiter, pain and significant neck swelling RESPIRATORY: Negative for cough, wheezing and shortness of breath CARDIOVASCULAR: Negative for chest pain, leg swelling and palpitations GASTROINTESTINAL: Negative for abdominal discomfort, blood in stools or black stools and change in bowel habits GENITOURIN (more content not included)... Normal [facility] CNOV Office Visit (EKGF16 ) FANG KILLIAN ([id number]) 1960 F Date Time Provider Department 06/02/24 12:45 PM [id number] MAIN [id number] During your visit today, we recorded the following information about you: Referring Provider: JOHN BENNETT [[id number]] Allergies As of Date: 06/02/2024 Noted Allergy Reaction SEASONAL ALLERGIES 06/02/2020 14 - Other: See Comments Date Reviewed: 06/02/2024 Reviewed by: Jennifer Cabral MA - Fully Assessed Visit Diagnosis:Mixed hyperlipidemia [E78.2] Order(s):ECG COMPLETE [ECG01] Order #: [id number]. #:[id number]--NWZOg kg Prescriptions as of 06/03/2024 - alendronate (FOSAMAX) 70 mg tablet PLEASE SEE ATTACHED FOR DETAILED DIRECTIONS - DHEA vaginal suppository 13 mg (CPD) Unwrap 1 suppository and insert every night in vagina as directed for the first 2 weeks, and then every other day for 2 months. Then twice a week. - lisinopril 2.5 mg tablet Take 1 tablet by mouth once daily. - cholecalciferol (VITAMIN D) 1,000 unit tab tablet Take 2 tablets by mouth once daily. - anastrozole (ARIMIDEX) 1 mg tablet Take 1 tablet by mouth once daily. Problem List As Of Date 06/02/2024 Noted Resolved Essential hypertension [I10] Mixed hyperlipidemia [E78.2] Cystocele with prolapse [N81.4] 03/06/2022 Multiple cysts of breast [N60.19] 03/06/2022 Spider veins of limb [I78.1] 03/06/2022 Urinary urgency [R39.15] 07/26/2022 Muscle weakness [M62.81] 07/26/2022 Invasive carcinoma of breast (HCC) [C50.919] 12/25/2022 Malignant neoplasm of central portion of left f*02/12/2023 Other specified disorders of kidney and ureter *03/30/2023 Abnormal finding on diagnostic imaging of kidne*03/30/2023 Hypercalcemia [E83.52] 03/30/2023 FAIZAN (stress urinary incontinence, female) [N39.*01/02/2024 Encounter Status:Closed by ARLEEN MOSELEY on 06/03/24 Normal [facility] ECG COMPLETEon 06-02-2024 ECG COMPLETE Ventricular Rate : 6 6 BPM Atrial Rate : 66 BPM P-R Interval : 110 ms QRS Duration : 96 ms Q-T Interval : 424 ms QTC Calculation(Bazett) : 444 ms Calculated P [place] : 40 degrees Calculated R [place] : 27 degrees Calculated T [place] : 74 degrees SINUS RHYTHM WITH SHORT WY NONSPECIFIC ST ABNORMALITY ABNORMAL ECG Confirmed by ELOISE SPENCER M.D. ([id number]) on 06/22/2024 9:16:43 AM NAME : FANG KILLIAN PID : [id number] : 1960 Gender : Female Race : ORD : [id number] Procedure Date : Jun 02 2024 13:10:51 Edit Date : Jun 22 2024 09:18:20 Diagnosis: SINUS RHYTHM WITH SHORT WY NONSPECIFIC ST ABNORMALITY ABNORMAL ECG Confirmed by ELOISE SPENCER M.D. ([id number]) on 06/22/2024 9:16:43 AM Test Reason : Location : 314 : [facility] Overread By : ELOISE SPENCER M.D. Edited By : ELOISE SPENCER M.D. Referred By : JOHN BENNETT Acquired by : INGRID ASH Normal [facility] DBT Breast - right diagnosti c for implanton 05-26-2024 IMPRESSION: Dilated duct in the retroareolar region of the right breast is probably benign. A follow-up in 6 months is recommended. BI-RADS Category 3: Probably Benign RISK: Due to the reported patient's history, the patient's estimated lifetime risk of developing breast cancer cannot be assessed at this time. We encourage all patients to talk with their providers about their risk assessment, further recommendations for managing breast health, and appropriate supplemental screening options if the patient has dense breast tissue. Interpreting Radiologist: Marisela Wood M.D. Electronically signed on: 05/26/2024 Shirt Ironer: STACY Transcrinicole Date/Time: May 26 2024 1:59P Dictated by: MARISELA WOOD MD This examination was interpreted and the report reviewed and electronically signed by: MARISELA WOOD MD on May 26 2024 2:50PM [facility] DIVISION OF RADIOLOGY * * *Final Report* * * DATE OF EXAM: May 26 2024 2:17PM [facility] 0629 - ERIK DIAG W ANTONIO RT / PROCEDURE REASON: Breast pain * * * * Physician Interpretation * * * * RESULT: [place] [address] #[id number] - ERIK DIAG W ANTONIO RT #[id number] - ERIK US BREAST LTD RT HISTORY: 63 year-old patient seen for diagnostic evaluation of area of clinical concern in the right breast. The patient has the following personal history of breast cancer: breast cancer in the left breast in October,. COMPARISON STUDIES: The present examination has been compared to prior imaging studies dated 11/12/2022 (mammogram), 11/12/2022 (ultrasound), 12/20/2022 (mammogram), 01/03/2023 (MRI) and 11/14/2023 (mammogram). MAMMOGRAM TECHNIQUE: The study was acquired using full field digital technology and interpreted from soft copy. Digital Breast Tomosynthesis (DBT) images were obtained and used to assist in the interpretation of this examination. MAMMOGRAM FINDINGS: The breast is heterogeneously dense, which may obscure small masses. There is an isodense focal asymmetry measuring 0.9 cm with obscured margins in the retroareolar region of the right breast. ULTRASOUND TECHNIQUE: Targeted ultrasound of the indicated area was performed. Wilson scale images were saved. ULTRASOUND FINDINGS: Ultrasound demonstrates an oval dilated duct in the retroareolar region of the right breast. Internal echotexture is hypoechoic. DIVISION OF RADIOLOGY Provider, Neymar Tavera - 05/26/2024 * * *Final Report* * * DATE OF EXAM: May 26 2024 2:17PM [facility] 0629 - ERIK DIAG W ANTONIO RT / PROCEDURE REASON: Breast pain * * * * Physician Interpretation * * * * RESULT: [place] [address] #[id number] - ERIK DIAG W ANTONIO RT #[id number] - ERIK US BREAST LTD RT HISTORY: 63 year-old patient seen for diagnostic evaluation of area of clinical concern in the right breast. The patient has the following personal history of breast cancer: breast cancer in the left breast in October,. COMPARISON STUDIES: The present examination has been compared to prior imaging studies dated 11/12/2022 (mammogram), 11/12/2022 (ultrasound), 12/20/2022 (mammogram), 01/03/2023 (MRI) and 11/14/2023 (mammogram). MAMMOGRAM TECHNIQUE: The study was acquired using full field digital technology and interpreted from soft copy. Digital Breast Tomosynthesis (DBT) images were obtained and used to assist in the interpretation of this examination. MAMMOGRAM FINDINGS: The breast is heterogeneously dense, which may obscure small masses. There is an isodense focal asymmetry measuring 0.9 cm with obscured margins in the retroareolar region of the right breast. ULTRASOUND TECHNIQUE: Targeted ultrasound of the indicated area was performed. Wilson scale images were saved. ULTRASOUND FINDINGS: Ultrasound demonstrates an oval dilated duct in the retroareolar region of the right breast. Internal echotexture is hypoechoic. IMPRESSION IMPRESSION: Dilated duct in the retroareolar region of the right breast is probably benign. A follow-up in 6 months is recommended. BI-RADS Category 3: Probably Benign RISK: Due to the reported patient's history, the patient's estimated lifetime risk of developing breast cancer cannot be assessed at this time. We encourage all patients to talk with their providers about their risk assessment, further recommendations for managing breast health, and appropriate supplemental screening options if the patient has dense breast tissue. Interpreting Radiologist: Marisela Wood M.D. Electronically signed on: 05/26/2024 Shirt Ironer: STACY Transcribe Date/Time: May 26 2024 1:59P Dictated by: MARISELA WOOD MD This examination was interpreted and the report reviewed and electronically signed by: MARISELA WOOD MD on May 26 2024 2:50PM EST [facility] ERIK DIAG W ANTONIO RTon 025 ERIK DIAG W ANTONIO RT * * *Final Report* * * DATE OF EXAM: May 26 2024 2:17PM [facility] 0629 - ERIK DIAG W ANTONIO RT / PROCEDURE REASON: Breast pain * * * * Physician Interpretation * * * * RESULT: [place] [address] #[id number] - ERIK DIAG W ANTONIO RT #[id number] - ERIK US BREAST LTD RT HISTORY: 63 year-old patient seen for diagnostic evaluation of area of clinical concern in the right breast. The patient has the following personal history of breast cancer: breast cancer in the left breast in October,. COMPARISON STUDIES: The present examination has been compared to prior imaging studies dated 11/12/2022 (mammogram), 11/12/2022 (ultrasound), 12/20/2022 (mammogram), 01/03/2023 (MRI) and 11/14/2023 (mammogram). MAMMOGRAM TECHNIQUE: The study was acquired using full field digital technology and interpreted from soft copy. Digital Breast Tomosynthesis (DBT) images were obtained and used to assist in the interpretation of this examination. MAMMOGRAM FINDINGS: The breast is heterogeneously dense, which may obscure small masses. There is an isodense focal asymmetry measuring 0.9 cm with obscured margins in the retroareolar region of the right breast. ULTRASOUND TECHNIQUE: Targeted ultrasound of the indicated area was performed. Wilson scale images were saved. ULTRASOUND FINDINGS: Ultrasound demonstrates an oval dilated duct in the retroareolar region of the right breast. Internal echotexture is hypoechoic. IMPRESSION: Dilated duct in the retroareolar region of the right breast is probably benign. A follow-up in 6 months is recommended. BI-RADS Category 3: Probably Benign RISK: Due to the reported patient's history, the patient's estimated lifetime risk of developing breast cancer cannot be assessed at this time. We encourage all patients to talk with their providers about their risk assessment, further recommendations for managing breast health, and appropriate supplemental screening options if the patient has dense breast tissue. Interpreting Radiologist: Marisela Wood M.D. Electronically signed on: 05/26/2024 Shirt Ironer: STACY Transcribe Date/Time: May 26 2024 1:59P Dictated by: MARISELA WOOD MD This examination was interpreted and the report reviewed and electronically signed by: MARISELA WOOD MD on May 26 2024 2:50PM EST [id number] Normal [facility] US BREAST LTD RTon 05-26 [facility] US BREAST LTD RT * * *Final Report* * * DATE OF EXAM: May 26 2024 2:44PM [facility] 0594 - [facility] [employer] BREAST LTD RT / PROCEDURE REASON: Breast pain * * * * Physician Interpretation * * * * [facility] [address] [place] [address] #[id number] - [facility] DIAG W ANTONIO RT #[id number] - [facility] [employer] BREAST LTD RT HISTORY: 63 year-old patient seen for diagnostic evaluation of area of clinical concern in the right breast. The patient has the following personal history of breast cancer: breast cancer in the left breast in October,. COMPARISON STUDIES: The present examination has been compared to prior imaging studies dated 11/12/2022 (mammogram), 11/12/2022 (ultrasound), 12/20/2022 (mammogram), 01/03/2023 (MRI) and 11/14/2023 (mammogram). MAMMOGRAM TECHNIQUE: The study was acquired using full field digital technology and interpreted from soft copy. Digital Breast Tomosynthesis (DBT) images were obtained and used to assist in the interpretation of this examination. MAMMOGRAM FINDINGS: The breast is heterogeneously dense, which may obscure small masses. There is an isodense focal asymmetry measuring 0.9 cm with obscured margins in the retroareolar region of the right breast. ULTRASOUND TECHNIQUE: Targeted ultrasound of the indicated area was performed. Wilson scale images were saved. ULTRASOUND FINDINGS: Ultrasound demonstrates an oval dilated duct in the retroareolar region of the right breast. Internal echotexture is hypoechoic. IMPRESSION: Dilated duct in the retroareolar region of the right breast is probably benign. A follow-up in 6 months is recommended. BI-RADS Category 3: Probably Benign RISK: Due to the reported patient's history, the patient's estimated lifetime risk of developing breast cancer cannot be assessed at this time. We encourage all patients to talk with their providers about their risk assessment, further recommendations for managing breast health, and appropriate supplemental screening options if the patient has dense breast tissue. Interpreting Radiologist: Marisela Wood M.D. Electronically signed on: 05/26/2024 Shirt Ironer: STACY Transcribe Date/Time: May 26 2024 2:33P Dictated by : MARISELA WOOD MD This examination was interpreted and the report reviewed and electronically signed by: MARISELA WOOD MD on May 26 2024 2:50PM EST [id number] Normal [facility] No Panel InformationOrdered By: [facility] 05-26-2024 [facility] No Panel Informationon 05-26 Radiology Study observation (narrative) [facility] US Breast - right limitedon 05-26-2024 IMPRESSION: Dilated duct in the retroareolar region of the right breast is probably benign. A follow-up in 6 months is recommended. BI-RADS Category 3: Probably Benign RISK: Due to the reported patient's history, the patient's estimated lifetime risk of developing breast cancer cannot be assessed at this time. We encourage all patients to talk with their providers about their risk assessment, further recommendations for managing breast health, and appropriate supplemental screening options if the patient has dense breast tissue. Interpreting Radiologist: Marisela Wood M.D. Electronically signed on: 05/26/2024 Shirt Ironer: STACY Transcrinicole Date/Time: May 26 2024 2:33P Dictated by : MARISELA WOOD MD This examination was interpreted and the report reviewed and electronically signed by: MARISELA WOOD MD on May 26 2024 2:50PM [facility] DIVISION OF RADIOLOGY * * *Final Report* * * DATE OF EXAM: May 26 2024 2:44PM [facility] 0594 - [facility] [employer] BREAST LTD RT / PROCEDURE REASON: Breast pain * * * * Physician Interpretation * * * * [address] [address] #[id number] - [facility] RAYMOND Rowe ANTONIO RT #[id number] - [facility] [employer] BREAST LTD RT HISTORY: 63 year-old patient seen for diagnostic evaluation of area of clinical concern in the right breast. The patient has the following personal history of breast cancer: breast cancer in the left breast in October,. COMPARISON STUDIES: The present examination has been compared to prior imaging studies dated 11/12/2022 (mammogram), 11/12/2022 (ultrasound), 12/20/2022 (mammogram), 01/03/2023 (MRI) and 11/14/2023 (mammogram). MAMMOGRAM TECHNIQUE: The study was acquired using full field digital technology and interpreted from soft copy. Digital Breast Tomosynthesis (DBT) images were obtained and used to assist in the interpretation of this examination. MAMMOGRAM FINDINGS: The breast is heterogeneously dense, which may obscure small masses. There is an isodense focal asymmetry measuring 0.9 cm with obscured margins in the retroareolar region of the right breast. ULTRASOUND TECHNIQUE: Targeted ultrasound of the indicated area was performed. Wilson scale images were saved. ULTRASOUND FINDINGS: Ultrasound demonstrates an oval dilated duct in the retroareolar region of the right breast. Internal echotexture is hypoechoic. DIVISION OF RADIOLOGY Provider, [facility] - 05/26/2024 * * *Final Report* * * DATE OF EXAM: May 26 2024 2:44PM [facility] 0594 - [facility] [employer] BREAST LTD RT / PROCEDURE REASON: Breast pain * * * * Physician Interpretation * * * * [address] [id number] #[id number] - NUJ RAYMOND Rowe ANTONIO RT #[id number] - [facility] US BREAST LTD RT HISTORY: 63 year-old patient seen for diagnostic evaluation of area of clinical concern in the right breast. The patient has the following personal history of breast cancer: breast cancer in the left breast in October,. COMPARISON STUDIES: The present examination has been compared to prior imaging studies dated 11/12/2022 (mammogram), 11/12/2022 (ultrasound), 12/20/2022 (mammogram), 01/03/2023 (MRI) and 11/14/2023 (mammogram). MAMMOGRAM TECHNIQUE: The study was acquired using full field digital technology and interpreted from soft copy. Digital Breast Tomosynthesis (DBT) images were obtained and used to assist in the interpretation of this examination. MAMMOGRAM FINDINGS: The breast is heterogeneously dense, which may obscure small masses. There is an isodense focal asymmetry measuring 0.9 cm with obscured margins in the retroareolar region of the right breast. ULTRASOUND TECHNIQUE: Targeted ultrasound of the indicated area was performed. Wilson scale images were saved. ULTRASOUND FINDINGS: Ultrasound demonstrates an oval dilated duct in the retroareolar region of the right breast. Internal echotexture is hypoechoic. IMPRESSION IMPRESSION: Dilated duct in the retroareolar region of the right breast is probably benign. A follow-up in 6 months is recommended. BI-RADS Category 3: Probably Benign RISK: Due to the reported patient's history, the patient's estimated lifetime risk of developing breast cancer cannot be assessed at this time. We encourage all patients to talk with their providers about their risk assessment, further recommendations for managing breast health, and appropriate supplemental screening options if the patient has dense breast tissue. Interpreting Radiologist: Marisela Wood M.D. Electronically signed on: 05/26/2024 Shirt Ironer: STACY Transcribe Date/Time: May 26 2024 2:33P Dictated by : MARISELA WOOD MD This examination was interpreted and the report reviewed and electronically signed by: MARISELA WOOD MD on May 26 2024 2:50PM [facility] CNOVon 05-05-2024 CNOV Office Visit (WCTRMN ) FANG KILLIAN ([id number]) 1960 F Date Time Provider Department 05/05/24 3:00 PM LUZ CASTILLO WCTRMN During your visit today, we recorded the following information about you: Blood pressure Weight Height 134/78 63.5 kg 1.676 m Luz Castillo MD 05/07/2024 4:48 PM Signed [facility] [place] for [facility] PATIENT NAME: Fang Killian PCP: No primary care provider on file. DATE: 05/05/2024 Initiated Consultation requested by Dr.Tiffany Sondra GRAY for an opinion regarding vaginal atrophy. 01/2023 Chief Complaint CC: Vaginal dryness/ Atrophy follow up History of Present Illness: 05/05/2024 Subjective: Fang Killian with hx of breats cancer on Arimidex Will re evaluate in 3 years No side effects Hx of GSM overall stable on vaginal DHEA Will change from 4 to 13 mg vaginal DHEA S/p ISAURO due to pelvic prolapse 2019 Still has ovaries Playing pick a ball and its causing recurrence of pelvic prolapse PFPT Henny caicedo helped her a lot Objective: 2022 T score -3.1 01/2023 Fang is a 62 year old who presents for her 2022 noted left breast mass Developed left breats hematoma after first biopsy Second bx identified invasive ductal cancer Left mastectomy 12/2022 Advil and tylenol helping the surgical pain BP is elevated she is on lisinopril Post op visit tomorrow 2019 noted vaginal dryness and dyspareunia No UTI She was on estrace twice a week Not sexually active and only using vaginal estrogen for atrophy 01/15/2023 FINAL DIAGNOSIS A. 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 - Isolated tumor cells in one lymph node. B. Left breast, mastectomy: - Invasive ductal carcinoma, Ene grade 2, 15 mm, negative margins; see comment. - Ductal carcinoma in situ, intermediate nuclear grade, solid pattern, negative margins. - Apocrine metaplasia and columnar cell change. - Biopsy site changes. - Calcifications in association with ductal carcinoma in situ and benign ducts. - Nipple and skin, not involved by carcinoma. - Skeletal muscle, not involved by carcinoma. 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 C. Left breast, lateral margin, excision: Benign breast tissue. Sexually active: No Time with current partner: History of STDS: None Tobacco use? No OB History T4 L4 SAB1 IAB0 Ectopic0 Multiple0 Live Births4 Comment: 4 vaginal deliveries Family history of breast/ovarian/uterin e cancer? 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 Patient has had a hysterectomy. CARDIOVASCULAR Lipid AND CV risk assessment: Non smoker, no HTN, HLD, DM, UT, CVA or family hx of early CAD. BONE STATUS Discussed calcium in the diet and take separate oral 2,000 - 5,000 iu vitamin D3 daily Bone mineral density : due Review of Systems: General: Feels well. Denies fatigue, fever, chills, unintentional weight loss/weight gain. Psych: Feels stable, denies anxiety, depression or mood changes. Stress is tolerable. Abdomen: No abdominal pain, nausea, vomiting, diarrhea, or constipation. No bloating, early satiety, indigestion, or increased flatulence. Bladder: No dysuria, gross hematuria, urinary frequency, urinary urgency, or incontinence Breast: No breast lumps, nipple d/c, overlying skin changes, redness or skin retraction Past Medical History: PAST MEDICAL HISTORY Diagnosis Date Breast cancer (HCC) left Cystocele with prolapse s/p hysterectomy Diverticulitis 03/15/2021 Essential hypertension situational- trying to get off medication Mixed hyperlipidemia Diet Controlled - Vegan Multiple cysts of breast Spider veins of limb Uterine prolapse Vegan diet Family History: Family History Problem Relation Age of Onset No Known Problems Mother Arthritis Father Heart Attack Father 65 Prostate Cancer Father No Known Problems Sister No Known Problems Maternal Grandmother No Known Problems Maternal Grandfather No Known Problems Paternal Grandmother No Known Problems Paternal Grandfather other (Pulmonary Embolus) Daughter No Known Problems Daughter No Known Problems Son No Known Problems Son Past Surgical History: PAST SURGICAL HISTORY Procedure Laterality Date COLONOSCOPY 05/2022 Dr. Chirinos, repeat in 10 years per patient COLONOSCOPY GEN ANES 2012 Dr. Chirinos-reportedly negative/normal. MASTECTOMY, SIMPLE, COMPLETE Left 12/2022 TOTAL ABD HYSTERECTOMY+BLAD REPR 11/02/2019 for tx of uterine and bladder prolapse. (more content not included)... Normal [facility] CNOVSPon 03-29-2024 CNOVSP Visit (SP) Office (HEMCA4) CONSTANTINFANG ([id number]) 1960 F Date Time Provider Department 03/29/24 1:30 PM KIMBERLEE LION HEMCA4 During your visit today, we recorded the following information about you: Temperature Pulse Respiration Blood pressure 97.4 degrees 61/minute 18/minute 130/82 Weight Height 65.3 kg 1.676 m Kelly Huggins LPN 03/29/2024 1:19 PM Signed Additional intake questions: Has the patient had fever, nausea, vomiting, diarrhea, constipation, fatigue for > 1 week? No Does the patient have a decreased appetite? No Does patient want to see a Pigment Pusher? No (yes to any of above refer patient to schedulers for dietitian appointment) ) Does patient have any new or increased numbness or tingling of extremities? No Is patient interested in fertility information? No Does patient need any prescription refills? No Does patient have an advanced directive in place? No, Patient referred to Resource Center Electronically Signed By: CARMELLA Chance Tiffany, MD 03/29/2024 1:54 PM Signed BREAST MEDICAL ONCOLOGY VISIT NOTE HISTORY AND PHYSICAL EXAMINATION PATIENT NAME: Fang Killian AGE: [age] year old CHIEF COMPLAINT: Breast Cancer as described below: PRIMARY CANCER: left IDC ER 91-100%/ WY 61-70%/ HER2 (2+) by IHC, NEG by FISH Grade 2 Prognostic Stage IA [T1p(15mm by biopsy core length ) N1mi M0 ] breast cancer. Cancer Staging Invasive carcinoma of breast (HCC) Staging form: Breast, AJCC 8th Edition - Clinical stage from 01/06/2023: Stage IA (cT1c, cN0, cM0, G2, ER+, WY+, HER2-) - Signed by Kimberlee Lion MD on 01/06/2023 - Pathologic: Stage IA (pT1c, pN1mi(f), cM0, G2, ER+, WY+, HER2-, Oncotype DX score: 13) - Signed by Kimberlee Lion MD on 03/05/2023 CURRENT TREATMENT: Arimidex started 02/10/23 [No matching plan found] GENETICS: in 12/2022 Declined offer for referral. Has NO FDR with cancers. I think this is just fine. Menopausal status at the time of cancer diagnosis: POST No LMP recorded. Patient has had a hysterectomy. ONCOLOGIC HISTORY: 11/12/22: Screening Mammogram/US reported abnormality in L breast. There is a 1.1 cm x 0.9 cm x 1 cm oval mass with an indistinct margin in the left breast at 12 o'clock anterior depth. Directed ultrasound of the left axilla was negative. There is some ductal dilation near the mass possibly due to obstruction by the mass. 12/20/22: Biopsy reported a 12mm core of LEFT IDC ER 91-100%/ WY 61-70%/ HER2 (2+) by IHC, NEG by FISH Grade 2. 01/15/23: Left Mastectomy noted pT1c(15mm)pN1mi (1micromet of 2mm, 1ist, 5LN examined) 02/07/13: Osteoporosis on DEXA. 02/10/23: Arimidex start 10/2023; smMG noted The right breast is heterogeneously dense, which may obscure small masses. INTERVAL HISTORY: Presents for endocrine therapy toxicity check: She denies arthralgia, mood disturbances, insomnia, hot flashes Vaginal dryness managed with DHEA. Fatigue - ever since mastectomy, has been present but is better during vacation. She will be seeing a psychologist for the first time tomorrow. She is exercising through stretching. Fatigue limits her exercising extra. She is taking vitamin D3. She does eat milk and cheese (was vegan) . Osteoporosis noted 03/2022 and she is on fosamax. Has a tugging that was noted in the right breast. Had a sMMG since then but there was no US. R breast mmg is heterogeneously dense. She is IS NOT open to an MRI 2/2 claustrophobia. Review of Systems: Reviewed and otherwise negative PAST MEDICAL HISTORY Diagnosis Date Breast cancer (HCC) left Cystocele with prolapse s/p hysterectomy Diverticulitis 03/15/2021 Essential hypertension situational- trying to get off medication Mixed hyperlipidemia Diet Controlled - Vegan Multiple cysts of breast Spider veins of limb Uterine prolapse Vegan diet PAST SURGICAL HISTORY Procedure Laterality Date COLONOSCOPY 05/2022 Dr. Chirinos, repeat in 10 years per patient COLONOSCOPY GEN ANES 2012 Dr. Chirinos-reportedly negative/normal. MASTECTOMY, SIMPLE, COMPLETE Left 12/2022 TOTAL ABD HYSTERECTOMY+BLAD REPR 11/02/2019 for tx of uterine and bladder prolapse. Family History Problem Relation Age of Onset No Known Problems Mother Arthritis Father Heart Attack Father 65 Prostate Cancer Father No Known Problems Sister No Known Problems Maternal Grandmother No Known Problems Maternal Grandfather No Known Problems Paternal Grandmother No Known Problems Paternal Grandfather other (Pulmonary Embolus) Daughter No Known Problems Daughter No Known Problems Son No Known Problems Son Social History Tobacco Use Smoking status: Never Smokeless tobacco: Never Vaping Use Vaping status: Never Used Substance Use Topics Alcohol use: Yes Comment: rare Drug use: Never Current Outpatient Medications (more content not included)... Normal [facility] ECHOon 03-25-2024 Echocardiography Echocardiography Report: Transthoracic Echo [facility] Date of service: 03/25/2024 3:25:00 PM ADVISOR Ordering physician: ROSS SANDERS Indication: Hypertension Technologist: Juliette Hill [facility] Interpreting physician: Duran Thornton MD PATIENT: Name: FANG KILLIAN : 1960 Age: 63 years Gender: F History of hypertension and dyslipidemia. Primary rhythm: sinus. Height: 166.40 cm BSA: 1.72 m Weight: 64.20 kg BMI: 23.2 kg/m Heart rate 90 bpm Blood pressure 149/84 mmHg Technically difficult exam due to body habitus and left mastectomy. Color Doppler was utilized to interrogate the cardiac valves assessed and spectral Doppler was utilized to determine the flow velocities and pressure gradients reported in this exam. MEASUREMENTS: Value Indexed Normal Max aortic dimension 2.9 cm Ao < 3.8 Left atrial volume 32 ml (4ch A-L) 19 ml/m Jenny <= 34 LV ID (diastole) 4.1 cm (2D) 2.38 cm/m LV ID (systole) 2.8 cm (2D) 1.62 cm/m IVS, leaflet tips 0.9 cm (2D) Posterior wall thickness 1.0 cm (2D) Left ventricular mass 129 g (2D) 75 g/m LV stroke volume 53 ml (2D biplane) LV end diastolic volume 79 ml (2D biplane) 45.9 ml/m 29<=EDVi<62 LV end systolic volume 26 ml (2D biplane) 15.3 ml/m Ejection Fraction 67 % (2D biplane) EF > 54 FINDINGS: LEFT VENTRICLE The left ventricle is normal in size. Left ventricular systolic function is normal. Normal left ventricular diastolic function. Mitral annular lateral E/e': 7.1. Mitral annular septal E/e': 7.1. Wall Motion: All scored segments are normal. RIGHT VENTRICLE The right ventricle is normal in size. Right ventricular systolic function is normal. RV systolic tissue Doppler velocity is 15.0 cm/s. Tricuspid annular displacement is 2.1 cm. Estimated right ventricular systolic pressure is 31 mmHg consistent with normal pulmonary artery pressures. Estimated right atrial pressure is 3 mmHg based on IVC assessment. LEFT ATRIUM The left atrial cavity is normal in size. Pulmonary Veins: The pulmonary venous pattern showed normal systolic flow. RIGHT ATRIUM The right atrial cavity is normal in size. Inferior Vena Cava: The inferior vena cava appears normal measuring 1.2 cm. The vessel decreases greater than 50 percent with inspiration. MITRAL VALVE The mitral valve leaflets are structurally normal. There is no mitral valve regurgitation. The pressure half time is 50 msec. The peak mitral E/A ratio is 1.16. The average mitral E/e' ratio is 7.1. The mitral flow deceleration time is 173 msec. TRICUSPID VALVE The tricuspid valve leaflets are structurally normal. There is trace tricuspid valve regurgitation. AORTIC VALVE The aortic valve cusps are structurally normal. There is no aortic valve regurgitation. Tricuspid aortic valve. The peak gradient is 8 mmHg (peak velocity = 141.6 cm/s). PULMONIC VALVE The pulmonic valve cusps are structurally normal. There is no pulmonic valve regurgitation. AORTA The visualized aorta is normal in size. Measurements - Mid ascending aorta 2.9 cm. PERICARDIUM There is no pericardial effusion. There is an epicardial fat pad. CONCLUSIONS: - Technically difficult exam due to body habitus and left mastectomy. - Exam indication: Hypertension - The left ventricle is normal in size. Left ventricular systolic function is normal. EF = 67 5% (2D biplane). Normal left ventricular diastolic function. - The right ventricle is normal in size. Right ventricular systolic function is normal. - There are no significant valvular abnormalities. - The patient has not had a prior CC echocardiographic exam for comparison. * * * Final * * * CC [employer] Medical Image : [id number] amicsSISUID Normal [facility] CNOVon 03-08-2024 CNOV Office Visit (INTMMN ) FANG KILLIAN ([id number]) 1960 F Date Time Provider Department 03/08/24 3:15 PM BILL EUGENE INTMMN During your visit today, we recorded the following information about you: Pulse Blood pressure Weight 77/minute 129/82 64.2 kg Ross Sanders MD, PhD 03/08/2024 3:53 PM Signed Internal Medicine Outpatient Visit March 08, 2024 Preceptor: Dr. Tommy MD, PhD Chief complaint: Follow Up HPI: 63 year old female patient here today for follow up after 10 weeks due to SOB/chest pain that overall improved a lot without major chances. She refers that the stress she had at that time decreased and she is associating the symptoms PMHx - HTN - left breast cancer s/p masectomy 01/13,on anastrozole - recent diagnosis of osteoporosis Allergies: ALLERGIES Allergen Reactions Seasonal Allergies Other: See Comments Active Medications: anastrozole (ARIMIDEX) 1 mg tablet Take 1 tablet by mouth once daily. alendronate (FOSAMAX) 70 mg tablet Take 1 tablet by mouth one time a week. In AM with cup of water on empty stomach. Nothing else by mouth and stay upright for 30 min. lisinopril 2.5 mg tablet Take 1 tablet by mouth once daily. DHEA vaginal suppository 4 mg (CPD) Unwrap and insert 1 suppository vaginally every other night. metoprolol tartrate, short acting, (LOPRESSOR) 50 mg tablet Take one 50 mg tablet the evening prior to the CTA examination, take another 50 mg tablet the morning of the CTA examination. nitroglycerin sublingual (NITROQUICK) 0.3 mg SL tablet Dissolve 1 tablet under the tongue one time only for 1 dose. To be administered in Radiology for CTA exam Past Medical History: PAST MEDICAL HISTORY Diagnosis Date Breast cancer (HCC) left Cystocele with prolapse s/p hysterectomy Diverticulitis 03/15/2021 Essential hypertension situational- trying to get off medication Mixed hyperlipidemia Diet Controlled - Vegan Multiple cysts of breast Spider veins of limb Uterine prolapse Vegan diet Social History: Social History Tobacco Use Smoking status: Never Smokeless tobacco: Never Vaping Use Vaping status: Never Used Substance Use Topics Alcohol use: Yes Comment: rare Drug use: Never Vitals: BP 129/82 Pulse 77 Wt 64.2 kg (141 lb 8.6 oz) BMI 23.19 kg/m? Physical Exam: Physical Exam Constitutional: Appearance: Normal appearance. Cardiovascular: Rate and Rhythm: Normal rate and regular rhythm. Pulmonary: Effort: Pulmonary effort is normal. Abdominal: General: Abdomen is flat. Palpations: Abdomen is soft. Skin: Capillary Refill: Capillary refill takes less than 2 seconds. Neurological: General: No focal deficit present. Mental Status: She is alert and oriented to person, place, and time. Mental status is at baseline. Labs and Imaging Reviewed: Vide below Assessment/Plan: 63 year old female patient here today with plan as follows: ASSESSMENT/PLAN: 1. Mixed hyperlipidemia - ICD9: 272.2, ICD10: E78.2 (primary diagnosis) - TC 209; Triglycerides 84; HDL 59; Non HDL Cholesterol 150; VLDL 17; LDL 133 - The 10-year ASCVD risk score (Marycarmen WESTON, et al., 2019) is: 5.5% Values used to calculate the score: Age: 63 years Sex: Female Is Non- : No Diabetic: No Tobacco smoker: No Systolic Blood Pressure: 129 mmHg Is BP treated: Yes HDL Cholesterol: 59 mg/dL Total Cholesterol: 209 mg/dL Plan: - Due to low 10-year ASCVD risk score and patient desire, not starting statin - Plan to repeat it in 1 year 2. Screening for depression - ICD9: V79.0, ICD10: Z13.31 - DEPRESSION SCREENING: negative 3. Encounter for screening examination for other mental health and behavioral disorders - ICD9: V79.8, ICD10: Z13.39 - ANXIETY SCREENING: negative 4. Hypertension, unspecified type - ICD9: 401.9, ICD10: I10 - Well controlled on Lisinopril 2.5 mg daily Plan: - Continue lisinopril 5. SOB/Chest Pain, resolved - 10 weeks ago appointment due to new onset SOB/chest pain - CTA Coronary ordered and results from 01/28/24: - NO EVIDENCE OF ATHEROSCLEROTIC CHANGES OR LUMINAL STENOSIS OF THE CORONARY ARTERIES - CAD-RADS 0: No plaque or luminal stenosis. Absence of CAD. - Overall Plaque Sharon: No evidence of plaque Plan: - Due to recent SOB and chest pain and incoming cardiology consult, order EKG and Echo to role out any abnormalities Follow Up Plan: Discussed with patient the importance of continuity of care. I encouraged patient to schedule next appointment within Select Time: 6 months with Bill Eugene MD. Patient prefers to be reached by Select Method: MyChart for results. Other appointments to be scheduled: See patient instructions Bill Eugene MD Internal Medicine Resident, PGY-1 [facility] Staff Physician Note: I have seen and examined the patient. Arrieta elements of the (more content not included)... Normal [facility] CNTHERAPYon 02-10-2024 CNTHERAPY OT/PT/Speech Visit (AKPTB) CONSTANTINFANG Arian ([id number]) 1960 F Date Time Provider Department 02/10/24 3:00 PM HENNY HENRY AKPTB Date Time Provider Department Center 02/10/2024 3:00 PM [id number] HENRYKPTB [facility] Reason for Visit: PT Discharge [752] Primary Visit Diagnosis:Muscle weakness [M62.81] Other Visit Diagnosis:FAIZAN (stress urinary incontinence, female) [N39.3] Allergies As of Date: 02/10/2024 Noted Allergy Reaction SEASONAL ALLERGIES 06/02/2020 14 - Other: See Comments Date Reviewed: 01/28/2024 Reviewed by: Enid Medina, RAMIN - Fully Assessed Prescriptions as of 02/10/2024 - anastrozole (ARIMIDEX) 1 mg tablet Take 1 tablet by mouth once daily. - metoprolol tartrate, short acting, (LOPRESSOR) 50 mg tablet Take one 50 mg tablet the evening prior to the CTA examination, take another 50 mg tablet the morning of the CTA examination. - nitroglycerin sublingual (NITROQUICK) 0.3 mg SL tablet Dissolve 1 tablet under the tongue one time only for 1 dose. To be administered in Radiology for CTA exam - alendronate (FOSAMAX) 70 mg tablet Take 1 tablet by mouth one time a week. In AM with cup of water on empty stomach. Nothing else by mouth and stay upright for 30 min. - lisinopril 2.5 mg tablet Take 1 tablet by mouth once daily. - DHEA vaginal suppository 4 mg (CPD) Unwrap and insert 1 suppository vaginally every other night. Normal [facility] CTA CORONARY W IVCONon 01-27 CTA CORONARY W IVCON * * *Final Report* * * DATE OF EXAM: Jan 28 2024 2:57PM JQC [id number] - CTA CORONARY W IVCON / PROCEDURE REASON: Chest pain, unspecified type * * * * Physician Interpretation * * * * CTA CORONARY ARTERIES Direct Image Comparison: None HISTORY: 63 years old Female patient with chronic h/o chest pain. There is concern for CAD. Evaluation for diagnostic clarification and further treatment options.. There is request to define coronary anatomy. TECHNIQUE: SCANNER: Multi-detector scanner PROTOCOL: Sequential imaging of the heart with prospective triggering in diastolic phase and submillimeter slice reconstruction following administration of contrast material. Scan Range: rubén to the base of the heart CT Dose-Length Product (DLP): 167 mGy*cm CT Dose Reduction Employed: Automated exposure control(AEC) and iterative recon CONTRAST: IV administration of 70 ml Omnipaque 350 Premedication with mg i.v. lopressor and 0.3 mg sublingual nitroglycerin Scan acquisition: uncomplicated Macro Version: [id number] For optimization of anatomic evaluation, advanced 3-D off-line postprocessing was performed on a dedicated workstation by the interpreting physician. STUDY LIMITATIONS: None. RESULT: LINES, TUBES and DEVICES: None limited CHEST: visualized CHEST: Chest wall anatomy: Changes consistent with left breast mastectomy visualized LUNGS: unremarkable. visualized MEDIASTINUM: unremarkable. PERICARDIUM: unremarkable CENTRAL PULMONARY ARTERY: normal dimensions. Assessment is limited due to limited contrast enhancement. CARDIAC CHAMBERS: LEFT VENTRICLE: normal size with normal systolic function; LV EF 68 % RIGHT VENTRICLE: normal size and normal function on qualitative assessment. Left atrium: normal size. STAN: normal. Right atrium: normal size CENTRAL VENOUS and PULMONARY VENOUS RETURN: normal. Coronary Sinus: normal size MITRAL VALVE: assessment is limited in the current study - no leaflet calcification. No annular calcification TRICUSPID and PULMONIC VALVE: appear unremarkable. AORTIC VALVE: appears trileaflet. No leaflet calcification. visualized AORTA: Pathology: No aortic pathology in limited visualized segments of the aorta, Intervention: None Complications: n/a Aortic Size: Normal size visualized thoracic aorta. STJ: maintained Wall Changes: no evidence of wall changes. AORTIC DIMENSIONS: AORTIC ROOT: 3.2 cm measured [id number] mid ASCENDING THORACIC AORTA: 2.8 cm mid DESCENDING THORACIC AORTA: 2.3 cm CORONARY ANATOMY: normal origin of the coronary arteries. LEFT MAIN: Coronary Artery Normal sized vessel, which bifurcates into LAD and LCX. LM Stenosis and Plaque: No plaque or luminal stenosis. LAD: (Left Anterior Descending Coronary Artery) Normal size vessel, which wraps around the apex. Gives rise to 2 diagonal branches and small septal branches. LAD Stenosis and Plaque: No plaque or luminal stenosis. RAMUS INTERMEDIUS: Normal size vessel. RI Stenosis and Plaque: No plaque or luminal stenosis. LCX: (Left Circumflex Coronary Artery) Normal size vessel, which is non-dominant. Gives rise to a high-lateral branch, 1 lateral branch, and a posterolateral branch. LCX Stenosis and Plaque: No plaque or luminal stenosis. RCA: (Right Coronary Artery) Normal size vessel, which is dominant.. Gives rise to a conus branch, SA rosmery branch, 2 acute marginal branch. In its distal segment it bifurcates into the PDA and PV branch. RCA Stenosis and Plaque: No plaque or luminal stenosis. limited upper ABDOMEN: small cystic lesions of the liver BONES and SOFT TISSUES: degenerative changes of the thoracic spine. Rehabilitation Caseworker (topogram) images: No additional findings. IMPRESSION: NO EVIDENCE OF ATHEROSCLEROTIC CHANGES OR LUMINAL STENOSIS OF THE CORONARY ARTERIES - CAD-RADS 0: No plaque or luminal stenosis. Absence of CAD. - Overall Plaque Sharon: No evidence of plaque Shirt Ironer: [facility] Transcribe Date/Time: Jan 28 2024 3:26P Dictated by : MARY ANN ASH MD This examination was interpreted and the report reviewed and electronically signed by: MARY ANN ASH MD on Jan 28 2024 3:37PM EST [id number] Normal [facility] CTA Heart and Coronary arter ies W contrast Chanelle 01-28-2024 IMPRESSION: NO EVIDENCE OF ATHEROSCLEROTIC CHANGES OR LUMINAL STENOSIS OF THE CORONARY ARTERIES - CAD-RADS 0: No plaque or luminal stenosis. Absence of CAD. - Overall Plaque Sharon: No evidence of plaque Shirt Ironer: [facility] Transcribe Date/Time: Jan 28 2024 3:26P Dictated by : MARY ANN ASH MD This examination was interpreted and the report reviewed and electronically signed by: MARY ANN ASH MD on Jan 28 2024 3:37PM EST DIVISION OF RADIOLOGY * * *Final Report* * * DATE OF EXAM: Jan 28 2024 2:57PM J [id number] - CTA CORONARY W IVCON / PROCEDURE REASON: Chest pain, unspecified type * * * * Physician Interpretation * * * * CTA CORONARY ARTERIES Direct Image Comparison: None HISTORY: 63 years old Female patient with chronic h/o chest pain. There is concern for CAD. Evaluation for diagnostic clarification and further treatment options.. There is request to define coronary anatomy. TECHNIQUE: SCANNER: Multi-detector scanner PROTOCOL: Sequential imaging of the heart with prospective triggering in diastolic phase and submillimeter slice reconstruction following administration of contrast material. Scan Range: rubén to the base of the heart CT Dose-Length Product (DLP): 167 mGy*cm CT Dose Reduction Employed: Automated exposure control(AEC) and iterative recon CONTRAST: IV administration of 70 ml Omnipaque 350 Premedication with mg i.v. lopressor and 0.3 mg sublingual nitroglycerin Scan acquisition: uncomplicated Macro Version: [id number]:CCTW_6 For optimization of anatomic evaluation, advanced 3-D off-line postprocessing was performed on a dedicated workstation by the interpreting physician. STUDY LIMITATIONS: None. RESULT: LINES, TUBES and DEVICES: None limited CHEST: visualized CHEST: Chest wall anatomy: Changes consistent with left breast mastectomy visualized LUNGS: unremarkable. visualized MEDIASTINUM: unremarkable. PERICARDIUM: unremarkable CENTRAL PULMONARY ARTERY: normal dimensions. Assessment is limited due to limited contrast enhancement. CARDIAC CHAMBERS: LEFT VENTRICLE: normal size with normal systolic function; LV EF 68 % RIGHT VENTRICLE: normal size and normal function on qualitative assessment. Left atrium: normal size. STAN: normal. Right atrium: normal size CENTRAL VENOUS and PULMONARY VENOUS RETURN: normal. Coronary Sinus: normal size MITRAL VALVE: assessment is limited in the current study - no leaflet calcification. No annular calcification TRICUSPID and PULMONIC VALVE: appear unremarkable. AORTIC VALVE: appears trileaflet. No leaflet calcification. visualized AORTA: Pathology: No aortic pathology in limited visualized segments of the aorta, Intervention: None Complications: n/a Aortic Size: Normal size visualized thoracic aorta. STJ: maintained Wall Changes: no evidence of wall changes. AORTIC DIMENSIONS: AORTIC ROOT: 3.2 cm measured [id number] mid ASCENDING THORACIC AORTA: 2.8 cm mid DESCENDING THORACIC AORTA: 2.3 cm CORONARY ANATOMY: normal origin of the coronary arteries. LEFT MAIN: Coronary Artery Normal sized vessel, which bifurcates into LAD and LCX. LM Stenosis and Plaque: No plaque or luminal stenosis. LAD: (Left Anterior Descending Coronary Artery) Normal size vessel, which wraps around the apex. Gives rise to 2 diagonal branches and small septal branches. LAD Stenosis and Plaque: No plaque or luminal stenosis. RAMUS INTERMEDIUS: Normal size vessel. RI Stenosis and Plaque: No plaque or luminal stenosis. LCX: (Left Circumflex Coronary Artery) Normal size vessel, which is non-dominant. Gives rise to a high-lateral branch, 1 lateral branch, and a posterolateral branch. LCX Stenosis and Plaque: No plaque or luminal stenosis. RCA: (Right Coronary Artery) Normal size vessel, which is dominant.. Gives rise to a conus branch, SA rosmery branch, 2 acute marginal branch. In its distal segment it bifurcates into the PDA and PV branch. RCA Stenosis and Plaque: No plaque or luminal stenosis. limited upper ABDOMEN: small cystic lesions of the liver BONES and SOFT TISSUES: degenerative changes of the thoracic spine. Rehabilitation Caseworker (topogram) images: No additional findings. DIVISION OF RADIOLOGY Provider, [facility] - 01/28/2024 * * *Final Report* * * DATE OF EXAM: Jan 28 2024 2:57PM [id number] - CTA CORONARY W IVCON / PROCEDURE REASON: Chest pain, unspecified type * * * * Physician Interpretation * * * * CTA CORONARY ARTERIES Direct Image Comparison: None HISTORY: 63 years old Female patient with chronic h/o chest pain. There is concern for CAD. Evaluation for diagnostic clarification and further treatment options.. There is request to define coronary anatomy. TECHNIQUE: SCANNER: Multi-detector scanner PROTOCOL: Sequential imaging of the heart with prospective triggering in diastolic phase and submillimeter slice reconstruction following administration of contrast material. Scan Range: rubén to the base of the heart CT Dose-Length Product (DLP): 167 mGy*cm CT Dose Reduction Employed: Automated exposure control(AEC) and iterative recon CONTRAST: IV administration of 70 ml Omnipaque 350 Premedication with mg i.v. lopressor and 0.3 mg sublingual nitroglycerin Scan acquisition: uncomplicated Macro Version: [id number]:CCTW_6 For optimization of anatomic evaluation, advanced 3-D off-line postprocessing was performed on a dedicated workstation by the interpreting physician. STUDY LIMITATIONS: None. RESULT: LINES, TUBES and DEVICES: None limited CHEST: visualized CHEST: Chest wall anatomy: Changes consistent with left breast mastectomy visualized LUNGS: unremarkable. visualized MEDIASTINUM: unremarkable. PERICARDIUM: unremarkable CENTRAL PULMONARY ARTERY: normal dimensions. Assessment is limited due to limited contrast enhancement. CARDIAC CHAMBERS: LEFT VENTRICLE: normal size with normal systolic function; LV EF 68 % RIGHT VENTRICLE: normal size and normal function on qualitative assessment. Left atrium: normal size. STAN: normal. Right atrium: normal size CENTRAL VENOUS and PULMONARY VENOUS RETURN: normal. Coronary Sinus: normal size MITRAL VALVE: assessment is limited in the current study - no leaflet calcification. No annular calcification TRICUSPID and PULMONIC VALVE: appear unremarkable. AORTIC VALVE: appears trileaflet. No leaflet calcification. visualized AORTA: Pathology: No aortic pathology in limited visualized segments of the aorta, Intervention: None Complications: n/a Aortic Size: Normal size visualized thoracic aorta. STJ: maintained Wall Changes: no evidence of wall changes. AORTIC DIMENSIONS: AORTIC ROOT: 3.2 cm measured [id number] mid ASCENDING THORACIC AORTA: 2.8 cm mid DESCENDING THORACIC AORTA: 2.3 cm CORONARY ANATOMY: normal origin of the coronary arteries. LEFT MAIN: Coronary Artery Normal sized vessel, which bifurcates into LAD and LCX. LM Stenosis and Plaque: No plaque or luminal stenosis. LAD: (Left Anterior Descending Coronary Artery) Normal size vessel, which wraps around the apex. Gives rise to 2 diagonal branches and small septal branches. LAD Stenosis and Plaque: No plaque or luminal stenosis. RAMUS INTERMEDIUS: Normal size vessel. RI Stenosis and Plaque: No plaque or luminal stenosis. LCX: (Left Circumflex Coronary Artery) Normal size vessel, which is non-dominant. Gives rise to a high-lateral branch, 1 lateral branch, and a posterolateral branch. LCX Stenosis and Plaque: No plaque or luminal stenosis. RCA: (Right Coronary Artery) Normal size vessel, which is dominant.. Gives rise to a conus branch, SA rosmery branch, 2 acute marginal branch. In its distal segment it bifurcates into the PDA and PV branch. RCA Stenosis and Plaque: No plaque or luminal stenosis. limited upper ABDOMEN: small cystic lesions of the liver BONES and SOFT TISSUES: degenerative changes of the thoracic spine. Rehabilitation Caseworker (topogram) images: No additional findings. IMPRESSION IMPRESSION: NO EVIDENCE OF ATHEROSCLEROTIC CHANGES OR LUMINAL STENOSIS OF THE CORONARY ARTERIES - CAD-RADS 0: No plaque or luminal stenosis. Absence of CAD. - Overall Plaque Sharon: No evidence of plaque Shirt Ironer: ELINA Transcribe Date/Time: Jan 28 2024 3:26P Dictated by : MARY ANN ASH MD This examination was interpreted and the report reviewed and electronically signed by: MARY ANN ASH MD on Jan 28 2024 3:37PM EST [facility] Radiology Study observation (narrative) Susan lombardo [facility] CTA Heart and Coronary arter ies W contrast IVOrdered By: [facility] Provider on 01-28-2024 [facility] CNOVon 01-15-2024 CNOV Office Visit (OBGYWM ) CONSTANTINFANG Don ([id number]) 1960 F Date Time Provider Department 01/15/24 1:20 PM MK SCOTT OBGYWM During your visit today, we recorded the following information about you: Blood pressure Weight 124/70 64.9 kg Mk Scott MD 01/15/2024 1:34 PM Signed Patient declined keg filler. Fang Don Constantin presents today for pessary insertion for FAIZAN. The alternatives, risks, benefits, and potential complications have been reviewed with the patient. The patient states an understanding of RBAP and consents to proceed with the procedure. A size 4 pessary (ring with support) pessary was inserted, patient tolerated the procedure well and the device is comfortable. She demonstrated appropriate insertion and removal of the pessary as well as proper use and care. Mk Scott MD Faizan Allergies As of Date: 01/15/2024 Noted Allergy Reaction SEASONAL ALLERGIES 06/02/2020 14 - Other: See Comments Date Reviewed: 01/15/2024 Reviewed by: Mk Scott MD - Fully Assessed Reason for Visit: Pessary [345] Primary Visit Diagnosis:FAIZAN (stress urinary incontinence, female) [N39.3] Prescriptions as of 01/15/2024 - anastrozole (ARIMIDEX) 1 mg tablet Take 1 tablet by mouth once daily. - metoprolol tartrate, short acting, (LOPRESSOR) 50 mg tablet Take one 50 mg tablet the evening prior to the CTA examination, take another 50 mg tablet the morning of the CTA examination. - nitroglycerin sublingual (NITROQUICK) 0.3 mg SL tablet Dissolve 1 tablet under the tongue one time only for 1 dose. To be administered in Radiology for CTA exam - alendronate (FOSAMAX) 70 mg tablet Take 1 tablet by mouth one time a week. In AM with cup of water on empty stomach. Nothing else by mouth and stay upright for 30 min. - lisinopril 2.5 mg tablet Take 1 tablet by mouth once daily. - DHEA vaginal suppository 4 mg (CPD) Unwrap and insert 1 suppository vaginally every other night. Problem List As Of Date 01/15/2024 Noted Resolved Essential hypertension [I10] Mixed hyperlipidemia [E78.2] Cystocele with prolapse [N81.4] 03/06/2022 Multiple cysts of breast [N60.19] 03/06/2022 Spider veins of limb [I78.1] 03/06/2022 Urinary urgency [R39.15] 07/26/2022 Muscle weakness [M62.81] 07/26/2022 Invasive carcinoma of breast (HCC) [C50.919] 12/25/2022 Malignant neoplasm of central portion of left f*02/12/2023 Other specified disorders of kidney and ureter *03/30/2023 Abnormal finding on diagnostic imaging of kidne*03/30/2023 Hypercalcemia [E83.52] 03/30/2023 FAIZAN (stress urinary incontinence, female) [N39.*01/02/2024 Encounter Status:Closed by MK SCOTT on 01/15/24 Normal [facility] XR Chest PA and Lateralon IMPRESSION: No acute radiographic abnormality. Shirt Ironer: ELINA Transcribe Date/Time: Jan 13 2024 3:14P Dictated by : JEROME HUMPHREY MD This examination was interpreted and the report reviewed and electronically signed by: JEROME HUMPHREY MD on Jan 13 2024 3:15PM [facility] DIVISION OF RADIOLOGY * * *Final Report* * * DATE OF EXAM: Jan 12 2024 12:41PM WOX [id number] - XR CHEST 2V FRONTAL/LAT / PROCEDURE REASON: Shortness of breath * * * * Physician Interpretation * * * * EXAMINATION: CHEST RADIOGRAPH (2 VIEW FRONTAL & LATERAL) CLINICAL HISTORY: Shortness of breath MQ: XC2_6 EXAM DATE/TIME: 01/12/2024 12:41 PM COMPARISON: No relevant prior studies available. RESULT: Lines, tubes, and devices: None. Lungs and pleura: No consolidation. No lung mass. No pleural effusion. No pneumothorax. Cardiomediastinal silhouette: Normal cardiomediastinal silhouette. Bones and soft tissues: Unremarkable. DIVISION OF RADIOLOGY Provider, [facility] - 01/13/2024 * * *Final Report* * * DATE OF EXAM: Jan 12 2024 12:41PM WOX [id number] - XR CHEST 2V FRONTAL/LAT / PROCEDURE REASON: Shortness of breath * * * * Physician Interpretation * * * * EXAMINATION: CHEST RADIOGRAPH (2 VIEW FRONTAL & LATERAL) CLINICAL HISTORY: Shortness of breath MQ: XC2_6 EXAM DATE/TIME: 01/12/2024 12:41 PM COMPARISON: No relevant prior studies available. RESULT: Lines, tubes, and devices: None. Lungs and pleura: No consolidation. No lung mass. No pleural effusion. No pneumothorax. Cardiomediastinal silhouette: Normal cardiomediastinal silhouette. Bones and soft tissues: Unremarkable. IMPRESSION IMPRESSION: No acute radiographic abnormality. Shirt Ironer: [facility] Transcribe Date/Time: Jan 13 2024 3:14P Dictated by : JEROME HUMPHREY MD This examination was interpreted and the report reviewed and electronically signed by: JEROME HUMPHREY MD on Jan 13 2024 3:15PM EST [facility] XR Chest PA and LateralOrder ed By: [facility] Provider on 01-13-2024 [facility] XR CHEST 2V FRONTAL/LATon XR CHEST 2V FRONTAL/LAT * * *Final Repor t* * * DATE OF EXAM: Jan 12 2024 12:41PM WOX [id number] - XR CHEST 2V FRONTAL/LAT / PROCEDURE REASON: Shortness of breath * * * * Physician Interpretation * * * * EXAMINATION: CHEST RADIOGRAPH (2 VIEW FRONTAL and LATERAL) CLINICAL HISTORY: Shortness of breath MQ: XC2_6 EXAM DATE/TIME: 01/12/2024 12:41 PM COMPARISON: No relevant prior studies available. RESULT: Lines, tubes, and devices: None. Lungs and pleura: No consolidation. No lung mass. No pleural effusion. No pneumothorax. Cardiomediastinal silhouette: Normal cardiomediastinal silhouette. Bones and soft tissues: Unremarkable. IMPRESSION: No acute radiographic abnormality. Shirt Ironer: [facility] Transcribe Date/Time: Jan 13 2024 3:14P Dictated by : JEROME HUMPHREY MD This examination was interpreted and the report reviewed and electronically signed by: JEROME HUMPHREY MD on Jan 13 2024 3:15PM EST [id number] Normal [facility] XR Chest PA and Lateralon Radiology Study observation (narrative) [facility] CBC panel Auto (Bld)on 01-05 Erythrocyte distribution width (RBC) [Ratio] 12.3 % 11.5 - 15.0 % [facility] Hematocrit (Bld) [Volume fraction] 40.8 % 36.0 - 46.0 % [facility] Hemoglobin (Bld) [Mass/Vol] 13.5 g/dL 11.5 - 15.5 g/dL [facility] Interpretation and review of laboratory results Normal [facility] MCH (RBC) [Entitic mass] 31.6 pg 26.0 - 34.0 pg [facility] MCHC (RBC) [Mass/Vol] 33.1 g/dL 30.5 - 36.0 g/dL [facility] MCV (RBC) [Entitic vol] 95.6 fL 80.0 - 100.0 fL [facility] Nucleated RBC (Bld) [#/Vol] NINF [facility] Platelet mean volume (Bld) [Entitic vol] 12.0 fL 9.0 - 12.7 fL [facility] Platelets (Bld) [#/Vol] 216 10*3/uL [facility] RBC (Bld) [#/Vol] 4.27 10*6/uL 3.90 - 5.2 0 m/uL [facility] WBC (Bld) [#/Vol] 6.93 10*3/uL [facility] Erythrocyte distribution width (RBC) [Ratio] 12.3 % Normal 11.5-15.0 [facility] Comment on above: Order Comment: Speci men Type: BLOOD SPECIMENOrdering Facility: [facility] Address: [address] [place] [address] Performed By: #### 5 8410-2 ####[facility] LABIA [id number] [place] [address] [place] Hematocrit (Bld) [Volume fraction] 40.8 % Normal 36.0-46.0 [facility] Comment on above: Order Comment: Speci men Type: BLOOD SPECIMENOrdering Facility: [facility] Address: [address] [place] [address] Performed By: #### 5 8410-2 ####[facility] LABIA [id number] [place] [address] [place] Hemoglobin (Bld) [Mass/Vol] 13.5 g/dL Normal 11.5-15.5 [facility] Comment on above: Order Comment: Speci men Type: BLOOD SPECIMENOrdering Facility: [facility] Address: [address] [place] [address] Performed By: #### 5 8410-2 ####[facility]IA [id number] [place] [address] [place] MCH (RBC) [Entitic mass] 31.6 pg Normal 26.0-34.0 [facility] Comment on above: Order Comment: Speci men Type: BLOOD SPECIMENOrdering Facility: [facility] Address: [address] [place] [address] Performed By: #### 5 8410-2 ####[facility] LABIA [id number] [place] [address] [place] MCHC (RBC) [Mass/Vol] 33.1 g/dL Normal 30.5-36.0 [facility] Comment on above: Order Comment: Speci men Type: BLOOD SPECIMENOrdering Facility: [facility] Address: [address] [place] [address] Performed By: #### 5 8410-2 ####[facility] [id number] [place] [address] [place] MCV (RBC) [Entitic vol] 95.6 fL Normal 80.0-100.0 [facility] Comment on above: Order Comment: Speci men Type: BLOOD SPECIMENOrdering Facility: [facility] Address: [address] [place] [address] Performed By: #### 5 8410-2 ####[facility] LABIA [id number] [place] [address] [place] Nucleated RBC (Bld) [#/Vol] 10*3/uL Normal <0.01 [facility] Comment on above: Order Comment: Speci men Type: BLOOD SPECIMENOrdering Facility: [facility] Address: [address] [place] [address] Performed By: #### 5 8410-2 ####[facility]IA [id number] [place] [address] [place] Platelet mean volume (Bld) [Entitic vol] 12.0 fL Normal 9.0-12.7 [facility] Comment on above: Order Comment: Speci men Type: BLOOD SPECIMENOrdering Facility: [facility] Address: [address] [place] [address] Performed By: #### 5 8410-2 ####[facility] LABIA [id number] [place] [address] [place] Platelets (Bld) [#/Vol] 216 10*3/uL Normal 150-400 [facility] Comment on above: Order Comment: Speci men Type: BLOOD SPECIMENOrdering Facility: [facility] Address: [address] [place] [address] Performed By: #### 5 8410-2 ####[facility] LABCLIA [id number] [place] [address] [place] RBC (Bld) [#/Vol] 4.27 10*6/uL Normal 3.90-5.20 [facility] Comment on above: Order Comment: Speci men Type: BLOOD SPECIMENOrdering Facility: [facility] Address: [address] [place] [address] Performed By: #### 5 8410-2 ####[facility] LABCLIA [id number] [address] [place] WBC (Bld) [#/Vol] 6.93 10*3/uL Normal 3.70-11.00 [facility] Comment on above: Order Comment: Speci men Type: BLOOD SPECIMENOrdering Facility: [facility] Address: [address] [place] [address] Performed By: #### 5 8410-2 ####[facility] LABIA [id number] [place] [address] [facility] [place] Comprehensive metabolic 2000 panelon 01-06-2024 Albumin [Mass/Vol] 4.4 g/dL 3.9 - 4.9 g/dL [facility] ALP [Catalytic activity/Vol] 49 U/L 34 - 123 U/L [facility] ALT [Catalytic activity/Vol] 17 U/L 7 - 38 U/L [facility] Anion gap [Moles/Vol] 12 mmol/L 8 - 15 mmol/L [facility] AST [Catalytic activity/Vol] 17 U/L 13 - 35 U/L [facility] Bilirubin [Mass/Vol] 0.6 mg/dL 0.2 - 1 .3 mg/dL [facility] Calcium [Mass/Vol] 9.4 mg/dL 8.5 - 10. 2 mg/dL [facility] Chloride [Moles/Vol] 105 mmol/L 98 - 10 7 mmol/L [facility] CO2 [Moles/Vol] 24 mmol/L 22 - 30 mmol/L [facility] Creatinine [Mass/Vol] 0.66 mg/dL 0.58 - 0.96 mg/dL [facility] GFR/1.73 sq M.predicted among non-blacks MDRD (S/P/Bld) [Vol rate/Area] 99 mL/min/{1.73_m2} - PINF [facility] Comment on above: Estimated Glomerular Filtration Rate (eGFR) is calculated using the 2020 CKD-EPI creatinine equation. This equation utilizes serum creatinine, sex, and age as parameters. The creatinine assay has traceable calibration to isotope dilution-mass spectrometry. Refer to KDIGO guidelines for clinical interpretation. In patients with unstable renal function, e.g. those with acute kidney injury, the eGFR may not accurately reflect actual GFR. Glucose [Mass/Vol] 96 mg/dL 74 - 99 mg/dL [facility] Comment on above: The [place] [employer] Association (ADA) provides guidance for cutoff values for fasting glucose and random glucose. The ADA defines fasting as no caloric intake for at least 8 hours. Fasting plasma glucose results between 100 to 125 mg/dL indicate increased risk for diabetes (prediabetes). Fasting plasma glucose results greater than or equal to 126 mg/dL meet the criteria for diagnosis of diabetes. In the absence of unequivocal hyperglycemia, results should be confirmed by repeat testing. In a patient with classic symptoms of hyperglycemia or hyperglycemic crisis, random plasma glucose results greater than or equal to 200 mg/dL meet the criteria for diagnosis of diabetes. Reference: Standards of Medical Care in Diabetes 2016, [place] [employer]. Diabetes Care. 2016.39(Suppl 1). Interpretation and review of laboratory results Normal [facility] Potassium [Moles/Vol] 4.2 mmol/L 3.7 - 5.1 mmol/L [facility] Protein [Mass/Vol] 7.2 g/dL 6.3 - 8.0 g/dL [facility] Sodium [Moles/Vol] 141 mmol/L 136 - 144 mmol/L [facility] Urea nitrogen [Mass/Vol] 13 mg/dL 7 - 21 mg/dL [facility] Albumin [Mass/Vol] 4.4 g/dL Normal 3.9-4.9 [facility] Comment on above: Order Comment: Luis Enrique norton Type: BLOOD SPECIMENOrdering Facility: [facility] Address: [address] [place] [address] Performed By: #### 2 4323-8, 14299-6, 3016-3 ####[facility] LABCLIA [id number] [place] [address] [place] ALP [Catalytic activity/Vol] 49 U/L Normal 34-123 [facility] Comment on above: Order Comment: Luis Enrique norton Type: BLOOD SPECIMENOrdering Facility: [facility] Address: [address] [place] [address] Performed By: #### 2 4323-8, 96727-4, 3016-3 ####[facility] LABCLIA [id number] [place] [address] [place] ALT [Catalytic activity/Vol] 17 U/L Normal 7-38 [facility] Comment on above: Order Comment: Speci men Type: BLOOD SPECIMENOrdering Facility: [facility] Address: [address] [place] [address] Performed By: #### 2 4323-8, 25157-1, 3016-3 ####[facility] LABCLIA [id number] [place] [address] [place] Anion gap [Moles/Vol] 12 mmol/L Normal 8-15 [facility] Comment on above: Order Comment: Speci men Type: BLOOD SPECIMENOrdering Facility: [facility] Address: [address] [place] [address] Performed By: #### 2 4323-8, 62108-0, 6-3 ####[facility] LABIA [id number] [place] [address] [place] AST [Catalytic activity/Vol] 17 U/L Normal 13-35 [facility] Comment on above: Order Comment: Speci men Type: BLOOD SPECIMENOrdering Facility: [facility] Address: [address] [place] [address] Performed By: #### 2 4323-8, 28568-5, 3016-3 ####[facility] LABIA [id number] [place] [id number] [place] Bilirubin [Mass/Vol] 0.6 mg/dL Normal 0.2-1.3 [facility] Comment on above: Order Comment: Speci men Type: BLOOD SPECIMENOrdering Facility: [facility] Address: [address] [place] [address] Performed By: #### 2 4323-8, 02545-0, 3015-3 ####[facility] LABCLIA [id number] [address] [address] [place] Calcium [Mass/Vol] 9.4 mg/dL Normal 8.5-10.2 [facility] Comment on above: Order Comment: Speci men Type: BLOOD SPECIMENOrdering Facility: [facility] Address: [address] [place] [address] Performed By: #### 2 4323-8, 65016-4, 3015-3 ####[facility] LABCLIA [id number] [place] [address] [place] Chloride [Moles/Vol] 105 mmol/L Normal 98-107 [facility] Comment on above: Order Comment: Speci men Type: BLOOD SPECIMENOrdering Facility: [facility] Address: [address] [place] [address] Performed By: #### 2 4323-8, 80693-3, 3 ####[facility] LABCLIA [id number] [place] [address] [place] CO2 [Moles/Vol] 24 mmol/L Normal 22-30 [facility] Comment on above: Order Comment: Speci men Type: BLOOD SPECIMENOrdering Facility: [facility] Address: [address] [place], [place] [address] Performed By: #### 2 4323-8, 74865-1, 3 ####[facility] LABCLIA [id number] [address] [address] [place] Creatinine [Mass/Vol] 0.66 mg/dL Normal 0.58-0.96 [facility] Comment on above: Order Comment: Speci men Type: BLOOD SPECIMENOrdering Facility: [facility] Address: [address] [place], [place] [address] Performed By: #### 2 4323-8, 87962-1, 3015-3 ####[facility] LABCLIA [id number] [place] [address] [place] Creatinine and Glomerular filtration rate.predicted panel (S/P/Bld) 99 mL/min/1.73m??? Normal >=60 [facility] Comment on above: Order Comment: Luis Enrique norton Type: BLOOD SPECIMENOrdering Facility: [facility] Address: [address] [place] [address] Result Comment: Chantell mated Glomerular Filtration Rate (eGFR) is calculated using the 2020 CKD-EPI creatinine equation. This equation utilizes serum creatinine, sex, and age as parameters. The creatinine assay has traceable calibration to isotope dilution-mass spectrometry. Refer to KDIGO guidelines for clinical interpretation. In patients with unstable renal function, e.g. those with acute kidney injury, the eGFR may not accurately reflect actual GFR. Performed By: #### 2 4323-8, 10449-2, 3016-3 ####[facility] [id number] [place] [address] [place] Glucose [Mass/Vol] 96 mg/dL Normal 74-99 [facility] Comment on above: Order Comment: Luis Enrique norton Type: BLOOD SPECIMENOrdering Facility: [facility] Address: [address] [place] [address] Result Comment: The [place] Diabetes Association (ADA) provides guidance for cutoff values for fasting glucose and random glucose. The ADA defines fasting as no caloric intake for at least 8 hours. Fasting plasma glucose results between 100 to 125 mg/dL indicate increased risk for diabetes (prediabetes). Fasting plasma glucose results greater than or equal to 126 mg/dL meet the criteria for diagnosis of diabetes. In the absence of unequivocal hyperglycemia, results should be confirmed by repeat testing. In a patient with classic symptoms of hyperglycemia or hyperglycemic crisis, random plasma glucose results greater than or equal to 200 mg/dL meet the criteria for diagnosis of diabetes. Reference: Standards of Medical Care in Diabetes 2016, [place] Diabetes Association. Diabetes Care. 2016.39(Suppl 1). Performed By: #### 2 4323-8, 26312-7, 3016-3 ####[facility] LABIA [id number] [address] [address] [place] Potassium [Moles/Vol] 4.2 mmol/L Normal 3.7-5.1 [facility] Comment on above: Order Comment: Speci men Type: BLOOD SPECIMENOrdering Facility: [facility] Address: [address] [place], [place] [address] Performed By: #### 2 4323-8, 16720-3, 3016-3 ####[facility] LABCLIA [id number] [address] [address] [place] Protein [Mass/Vol] 7.2 g/dL Normal 6.3-8.0 [facility] Comment on above: Order Comment: Speci men Type: BLOOD SPECIMENOrdering Facility: [facility] Address: [address] [place] [address] Performed By: #### 2 4323-8, 78876-3, 3015-3 ####[facility] LABIA [id number] [address] [address] [place] Sodium [Moles/Vol] 141 mmol/L Normal 136-144 [facility] Comment on above: Order Comment: Speci men Type: BLOOD SPECIMENOrdering Facility: [facility] Address: [address] [place], [place] [address] Performed By: #### 2 4323-8, 67222-4, 6-3 ####[facility] LABIA [id number] [address] [address] [place] Urea nitrogen [Mass/Vol] 13 mg/dL Normal 7-21 [facility] Comment on above: Order Comment: Speci men Type: BLOOD SPECIMENOrdering Facility: [facility] Address: [address] [place] [address] Performed By: #### 2 4323-8, 64744-6, 3016-3 ####[facility] LABIA [id number] [address] [address] [place] Lipid 1996 panelon 4 Cholesterol [Mass/Vol] 209 mg/dL High NINF - 200 mg/dL [facility] Comment on above: <200 mg/dL, Desirabl e 200-239 mg/dL, Borderline high >239 mg/dL, High Cholesterol in HDL [Mass/Vol] 59 mg/dL 39 - PINF mg/dL [facility] Comment on above: 40-59 mg/dL, Accepta ble >59 mg/dL, High: Negative risk factor for coronary heart disease <40 mg/dL, Low: Positive risk factor for coronary heart disease Cholesterol in LDL [Mass/Vol] 133 mg/dL High NINF - 100 mg/dL [facility] Comment on above: <100 mg/dL, Optimal 100-129 mg/dL, Near optimal/above optimal 130-159 mg/dL, Borderline high 160-189 mg/dL, High >189 mg/dL, Very high Secondary prevention optimal LDL Cholesterol levels are recommended to be < 70 mg/dL Cholesterol in LDL/Cholesterol in HDL [Mass ratio] 2.25 {ratio} NINF - 2.54 [facility] Comment on above: Reference: 1. National Cholesterol Education Program ATP III Guideline At-A-Glance Quick Desk Reference: National Heart, Lung, and Blood [place]. National Institutes of Health. 2001: NIH Publication No. 01-3305. 2. An International Atherosclerosis Society position paper: global recommendations for the management of dyslipidemia: executive summary, Atherosclerosis. 2014: 232(2):410-413. Cholesterol in VLDL [Mass/Vol] 17 mg/dL NINF - 30 mg/dL [facility] Cholesterol non HDL [Mass/Vol] 150 mg/dL High NINF - 130 mg/dL [facility] Comment on above: <130 mg/dL, Optimal 130-159 mg/dL, Near optimal/above optimal 160-189 mg/dL, Borderline high 190-219 mg/dL, High >219 mg/dL, Very high Secondary prevention optimal non HDL Cholesterol levels are recommended to be <100 mg/dL Cholesterol.total/Keysha sterol in HDL [Mass ratio] 3.54 {ratio} NINF - 5.10 [facility] Fasting Time 13 hrs [facility] Interpretation and review of laboratory results Abnormal [facility] Triglyceride [Mass/Vol] 84 mg/dL NINF - 150 mg/dL [facility] Comment on above: <150 mg/dL, Normal 150-199 mg/dL, Borderline high 200-499 mg/dL, High >499 mg/dL, Very high Cholesterol [Mass/Vol] 209 mg/dL High <200 [facility] Comment on above: Order Comment: Speci men Type: BLOOD SPECIMENOrdering Facility: [facility] Address: [address] [place] [address] Result Comment: <200 mg/dL, Desirable 200-239 mg/dL, Borderline high >239 mg/dL, High Performed By: #### 2 4323-8, 25124-8, 3015-3 ####[facility] LABCLIA [id number] [facility] [address] [place] Cholesterol in HDL [Mass/Vol] 59 mg/dL Normal >39 [facility] Comment on above: Order Comment: Speci men Type: BLOOD SPECIMENOrdering Facility: [facility] Address: [address] [place] [address] Result Comment: 40-5 9 mg/dL, Acceptable >59 mg/dL, High: Negative risk factor for coronary heart disease <40 mg/dL, Low: Positive risk factor for coronary heart disease Performed By: #### 2 4323-8, 35788-2, 3015-3 ####[facility] LABCLIA [id number] [address] [place] Cholesterol in LDL [Mass/Vol] 133 mg/dL High <100 [facility] Comment on above: Order Comment: Speci men Type: BLOOD SPECIMENOrdering Facility: [facility] Address: [address] [place] [address] Result Comment: <100 mg/dL, Optimal 100-129 mg/dL, Near optimal/above optimal 130-159 mg/dL, Borderline high 160-189 mg/dL, High >189 mg/dL, Very high Secondary prevention optimal LDL Cholesterol levels are recommended to be < 70 mg/dL Performed By: #### 2 4323-8, 62702-1, 6-3 ####[facility] LABCLIA [id number] [place] [address] [place] Cholesterol in LDL/Cholesterol in HDL [Mass ratio] 2.25 {ratio} Normal <2.54 [facility] Comment on above: Order Comment: Luis Enrique norton Type: BLOOD SPECIMENOrdering Facility: [facility] Address: [address] [place] [address] Result Comment: Refe eli: 1. National Cholesterol Education Program ATP III Guideline At-A-Glance Quick Desk Reference: National Heart, Lung, and Blood [place]. National Institutes of Health. 2001: NIH Publication No. 01-3305. 2. An International Atherosclerosis Society position paper: global recommendations for the management of dyslipidemia: executive summary, Atherosclerosis. 2014: 232(2):410-413. Performed By: #### 2 4323-8, 75931-4, 3015-3 ####[facility] LABCLIA [id number] [place] [address] [place] Cholesterol in VLDL [Mass/Vol] 17 mg/dL Normal <30 [facility] Comment on above: Order Comment: Luis Enrique norton Type: BLOOD SPECIMENOrdering Facility: [facility] Address: [address] [place] [address] Performed By: #### 2 4323-8, 95297-2, 3015-3 ####[facility] LABCLIA [id number] [place] [address] [place] Cholesterol non HDL [Mass/Vol] 150 mg/dL High <130 [facility] Comment on above: Order Comment: Luis Enrique norton Type: BLOOD SPECIMENOrdering Facility: [facility] Address: [address] [place] [address] Result Comment: <130 mg/dL, Optimal 130-159 mg/dL, Near optimal/above optimal 160-189 mg/dL, Borderline high 190-219 mg/dL, High >219 mg/dL, Very high Secondary prevention optimal non HDL Cholesterol levels are recommended to be <100 mg/dL Performed By: #### 2 4323-8, 76389-4, 3015-3 ####[facility] LABCLIA [id number] [place] [address] [place] Cholesterol.total/Keysha sterol in HDL [Mass ratio] 3.54 {ratio} Normal <5.10 [facility] Comment on above: Order Comment: Speci men Type: BLOOD SPECIMENOrdering Facility: [facility] Address: [address] [place] [address] Performed By: #### 2 4323-8, 51699-9, 3016-3 ####[facility] LABIA [id number] [place] [address] [place] FASTING TIME 13 hrs Normal [facility] Comment on above: Order Comment: Speci men Type: BLOOD SPECIMENOrdering Facility: [facility] Address: [address] [place] [address] Performed By: #### 2 4323-8, 68726-5, 6-3 ####[facility] LABIA [id number] [place] [address] [place] Triglyceride [Mass/Vol] 84 mg/dL Normal <150 [facility] Comment on above: Order Comment: Speci men Type: BLOOD SPECIMENOrdering Facility: [facility] Address: [address] [place] [address] Result Comment: <150 mg/dL, Normal 150-199 mg/dL, Borderline high 200-499 mg/dL, High >499 mg/dL, Very high Performed By: #### 2 4323-8, 88674-6, 6-3 ####[facility] LABIA [id number] [place] [id number] [place] No Panel Informationon 01-05 [facility] THYROID STIMULATING HORMONEo n 01-06-2024 TSH Qn 1.730 m[IU]/L [facility] TSH Qnon 01-06-2024 Interpretation and review of laboratory results Normal [facility] TSH SerPl-aCncon 01-06-2024 TSH Qn 1.730 m[IU]/L Normal 0.270-4.200 [facility] Comment on above: Order Comment: Speci men Type: BLOOD SPECIMENOrdering Facility: [facility] Address: [address] [place] [address] Performed By: #### 2 4323-8, 44895-8, 3016-3 ####[facility] LABCLIA [id number] [place] [id number] OF [facility] CNOVon 01-02-2024 CNOV Office Visit (INTMMN ) FANG KILLIAN ([id number]) 1960 F Date Time Provider Department 01/02/24 3:15 PM BILL EUGENE INTMMN During your visit today, we recorded the following information about you: Pulse Blood pressure Weight 80/minute 143/85 65.2 kg John Bennett DO 01/21/2024 11:09 AM Signed Internal Medicine Outpatient Visit January 02, 2024 Preceptor: Dr. John Bennett HPI: 63 year old female patient here today for evaluation of SOB and chest tightness. PMHx: - HTN - left breast cancer s/p masectomy 01/13,on anastrozole - recent diagnosis of osteoporosis - hypercalcemia (resolved)/kidney lesions Allergies: ALLERGIES Allergen Reactions Seasonal Allergies Other: See Comments Active Medications: alendronate (FOSAMAX) 70 mg tablet Take 1 tablet by mouth one time a week. In AM with cup of water on empty stomach. Nothing else by mouth and stay upright for 30 min. lisinopril 2.5 mg tablet Take 1 tablet by mouth once daily. anastrozole (ARIMIDEX) 1 mg tablet Take 1 tablet by mouth once daily. DHEA vaginal suppository 4 mg (CPD) Unwrap and insert 1 suppository vaginally every other night. Past Medical History: PAST MEDICAL HISTORY Diagnosis Date Breast cancer (HCC) left Cystocele with prolapse s/p hysterectomy Diverticulitis 03/15/2021 Essential hypertension situational- trying to get off medication Mixed hyperlipidemia Diet Controlled - Vegan Multiple cysts of breast Spider veins of limb Uterine prolapse Vegan diet Social History: Social History Tobacco Use Smoking status: Never Smokeless tobacco: Never Vaping Use Vaping status: Never Used Substance Use Topics Alcohol use: Yes Comment: rare Drug use: Never Vitals: BP 143/85 Pulse 80 Wt 65.2 kg (143 lb 11.8 oz) BMI 23.56 kg/m? Physical Exam: Physical Exam Constitutional: Appearance: Normal appearance. HENT: Head: Normocephalic. Eyes: Pupils: Pupils are equal, round, and reactive to light. Cardiovascular: Rate and Rhythm: Normal rate and regular rhythm. Pulmonary: Effort: Pulmonary effort is normal. Breath sounds: Normal breath sounds. Abdominal: General: Bowel sounds are normal. Palpations: Abdomen is soft. Musculoskeletal: Cervical back: Normal range of motion. Skin: General: Skin is warm. Capillary Refill: Capillary refill takes less than 2 seconds. Neurological: General: No focal deficit present. Mental Status: She is alert and oriented to person, place, and time. Psychiatric: Mood and Affect: Mood normal. Behavior: Behavior normal. Labs and Imaging Reviewed: - Lipid panel with high LDL and HDL Assessment/Plan: 63 year old female patient here today with plan as follows: SOB/Chest tightness - Started after surgery 01/13 - Unable to exercise as before - Chest tightness associated with SOB - Still able to work 4h/day -overall her symptoms to appear to be exertional and could be an anginal equivalent. She has no personal hx of coronary disease but given the nature of he symptoms would warrant further testing which we discussed EKG Stress Treadmill vs CCTA. Ultimately opted for CCTA which was ordered but not yet completed by the patient. Plan: - EKG now - CTA coronary test - Lipid panel, CMP, CBC - CXR - Consult to cardiology - Close f/u (after labs/image) 2. HTN - Lisinopril 2.5 mg daily - Controlled Plan: - Continue current dose for now 3. left breast cancer s/p masectomy 01/13,on anastrozole - Continue f/u with Hem/Onc Follow Up Plan: Discussed with patient the importance of continuity of care. I encouraged patient to schedule next appointment within [facility] Time: 10 weeks with Bill Eugene MD. Patient prefers to be reached by [facility] Method: MyChart for results. Other appointments to be scheduled: See patient instructions Bill Eugene MD Internal Medicine Resident, PGY-1 [facility] Chart reviewed, patient examined and arrieta elements personally verified with patient and resident. The note includes my findings, plans and recommendations. Arrieta elements of history and physical examination of the patient confirmed with patient and resident. I reviewed Dr. Eugene's note, examined the patient and agree with the documented findings and plan of care. My changes/additions to the note are marked in italics. DO Dottie Ugalde Marlo M, MA 01/02/2024 2:59 PM Signed Assessment interrupted by medical provider, unable to complete nursing assessment. Bryan Sinclair MA January 02, 2024 2:59 PM Allergies As of Date: 01/02/2024 Noted Allergy Reaction SEASONAL ALLERGIES 06/02/2020 14 - Other: See Comments Date Reviewed: 01/02/2024 Reviewed by: Bryan Sinclair MA - Fully Assessed Reason for Visit: Multiple Concerns [253] Cmt: Patient states after having a mastectomy she has been experiencing fatigue, sob and tight (more content not included)... Normal [facility] CNTHERAPYon 01-02-2024 CNTHERAPY OT/PT/Speech Visit (AKPTB) FANG KILLIAN ([id number]) 1960 F Date Time Provider Department 01/02/24 7:45 AM HENNY HENRY Date Time Provider Department Center 01/02/2024 7:45 AM [id number] Reason for Visit: PT Eval [747] Primary Visit Diagnosis:FAIZAN (stress urinary incontinence, female) [N39.3] Other Visit Diagnosis:Muscle weakness [M62.81] Allergies As of Date: 01/02/2024 Noted Allergy Reaction SEASONAL ALLERGIES 06/02/2020 14 - Other: See Comments Date Reviewed: 11/21/2023 Reviewed by: Mk Scott MD - Fully Assessed Prescriptions as of 01/02/2024 - alendronate (FOSAMAX) 70 mg tablet Take 1 tablet by mouth one time a week. In AM with cup of water on empty stomach. Nothing else by mouth and stay upright for 30 min. - lisinopril 2.5 mg tablet Take 1 tablet by mouth once daily. - anastrozole (ARIMIDEX) 1 mg tablet Take 1 tablet by mouth once daily. - DHEA vaginal suppository 4 mg (CPD) Unwrap and insert 1 suppository vaginally every other night. Nuclear Equipment Test Engineer: Therapy (PT/OT/Speech/Resp) ID: [id number] 01/02/2024 8:10 AM Author: HENNY HENRY Signed by HENNY HENRY PT on 01/02/2024 at 8:10 AM Document text: Program_ID:[id number] Access Code: [email or web address] URL: [email or web address] Date: 01-02-2024 Prepared By: Henny Program Notes Exercises - Seated Pelvic Floor Contraction - 1 x daily - x weekly - 3 sets - 10 reps - Seated Pelvic Floor Contraction - 1 x daily - x weekly - 2 sets - 10 reps - Double Leg Hamstring Stretch at Wall - 1 x daily - x weekly - 3 sets - reps ----- Normal [facility] THERAPY NTon 01-02-2024 THERAPY NT HNO ID: [id number] Author: HENNY HENRY, PT Service: ? Author Type: Physical Therapist Type: Therapy (PT/OT/Speech/Resp) Filed: 01/02/2024 08:10 Note Text: Program_ID:[id number] Access Code: [email or web address] URL: [email or web address] Date: 01-02-2024 Prepared By: Henny Duarte Notes Exercises - Seated Pelvic Floor Contraction - 1 x daily - x weekly - 3 sets - 10 reps - Seated Pelvic Floor Contraction - 1 x daily - x weekly - 2 sets - 10 reps - Double Leg Hamstring Stretch at Wall - 1 x daily - x weekly - 3 sets - reps Normal [facility] CNOVon 11-21-2023 CNOV Office Visit (OBGYWM ) FANG KILLIAN ([id number]) 1960 F Date Time Provider Department 11/21/23 4:00 PM MK SCOTT OBGYWM During your visit today, we recorded the following information about you: Blood pressure Weight 134/82 64.4 kg Mk Scott MD 11/21/2023 4:51 PM Signed Fang Killian presents today for pessary insertion for prolapse AND FAIZAN. The alternatives, risks, benefits, and potential complications have been reviewed with the patient. The patient states an understanding of RBAP and consents to proceed with the procedure. A size 3, ring with support pessary was inserted, patient tolerated the procedure well and the device is comfortable but moved. Then a size 4, ring with support pessary was inserted, patient tolerated the procedure well and the device is comfortable She demonstrated appropriate insertion and removal of the pessary as well as proper use and care. AANDP: 63yo female with FAIZAN, cystocele AND apical vaginal prolapse Pessary (#4 ring with support) will be ordered for patient. Consult to pelvic floor PT. Mk Scott MD Allergies As of Date: 11/21/2023 Noted Allergy Reaction SEASONAL ALLERGIES 06/02/2020 14 - Other: See Comments Date Reviewed: 11/21/2023 Reviewed by: Mk Scott MD - Fully Assessed Reason for Visit: Pessary [345] Primary Visit Diagnosis:FAIZAN (stress urinary incontinence, female) [N39.3] Other Visit Diagnosis:Female genital prolapse, unspecified type [N81.9] Order(s):CONSULT TO PHYSICAL THERAPY [4264] Order #: [id number]: 1 FUTURE Prescriptions as of 11/21/2023 - alendronate (FOSAMAX) 70 mg tablet Take 1 tablet by mouth one time a week. In AM with cup of water on empty stomach. Nothing else by mouth and stay upright for 30 min. - lisinopril 2.5 mg tablet Take 1 tablet by mouth once daily. - cholecalciferol, Vitamin D3, (VITAMIN D3) 1,250 mcg (50,000 unit) cap capsule Take 1 capsule by mouth one time a week. - anastrozole (ARIMIDEX) 1 mg tablet Take 1 tablet by mouth once daily. - DHEA vaginal suppository 4 mg (CPD) Unwrap and insert 1 suppository vaginally every other night. Problem List As Of Date 11/21/2023 Noted Resolved Essential hypertension [I10] Mixed hyperlipidemia [E78.2] Cystocele with prolapse [N81.4] 03/06/2022 Multiple cysts of breast [N60.19] 03/06/2022 Spider veins of limb [I78.1] 03/06/2022 Urinary urgency [R39.15] 07/26/2022 Muscle weakness [M62.81] 07/26/2022 Invasive carcinoma of breast (HCC) [C50.919] 12/25/2022 Malignant neoplasm of central portion of left f*02/12/2023 Other specified disorders of kidney and ureter *03/30/2023 Abnormal finding on diagnostic imaging of kidne*03/30/2023 Hypercalcemia [E83.52] 03/30/2023 Encounter Status:Closed by MK SCOTT on 11/21/23 Normal [facility] [id number] Author: COORDINATOR, MAMMOGRAPHY, ? Service: ? Author Type: Physician Type: Letter Filed: 11/17/2023 12:05 Note Text: November 17, 2023 PID: [id number] Fang Killian [address] [place] [address] Dear Ms. Killian, We are pleased to inform you that the results of your recent breast imaging exam on 11/14/2023 are normal. Breast tissue can be either dense or not dense. Dense tissue makes it harder to find breast cancer on a mammogram and also raises the risk of developing breast cancer. Your breast tissue is dense. In some people with dense tissue, other imaging tests in addition to a mammogram may help find cancers. Talk to your healthcare provider about breast density, risks for breast cancer, and your individual situation. Early detection of cancer is very important. We also understand recommendations regarding breast cancer screening are controversial. Please discuss with your primary care provider which strategy is best for you and whether a mammogram is right for you. Your imaging studies and report will be kept on file at [facility] as part of your permanent medical record and are available for your continuing care. Thank you for allowing us to help in meeting your health care needs. Sincerely, Dr. Maria Interpreting Radiologist [facility] (Normal over 40) Normal [facility] ERIK SCREENING W TOMOon 11-13 ERIK SCREENING W ANTONIO * * *Final Report* * * DATE OF EXAM: Nov 14 2023 1:09PM WRW [id number] - [facility] SCREENING W ANTONIO / PROCEDURE REASON: Invasive carcinoma of breast (HCC) * * * * Physician Interpretation * * * * RESULT: #[id number] - ERIK SCREENING W ANTONIO UNILATERAL RIGHT DIGITAL SCREENING MAMMOGRAM TOMOSYNTHESIS WITH CAD: 11/14/2023 HISTORY: /Screening Mammogram with ANTONIO - patient reports NO breast symptoms /priors available for comparison Invasive Carcinoma Of Breast (Hcc). RESULT: TECHNIQUE: The study was acquired using full field digital technology and interpreted from soft copy. Digital Breast Tomosynthesis (DBT) images were obtained and used to assist in the interpretation of this examination. Current study was also evaluated with a Computer Aided Detection (CAD). Comparison is made to exams dated: 01/03/2023 breast MRI - [facility], 12/20/2022 mammogram - [facility], 11/12/2022 mammogram, 04/24/2022 mammogram, 09/11/2021 mammogram, and 08/15/2020 mammogram - [facility]. The right breast is heterogeneously dense, which may obscure small masses. No significant masses, calcifications, or other findings are seen in the breast. There has been no significant interval change. IMPRESSION: NEGATIVE There is no mammographic evidence of malignancy. A 1 year screening mammogram is recommended. Aaron Maria M.D., lm/jay:11/17/2023 12:05:54 Superintendent Transmission(s): RT Ivana(R)(M), [facility] letter sent: Normal over 40 Mammogram BI-RADS: Category 1: Negative Multiple national specialty organizations have released breast cancer screening guidelines for women at average risk for developing breast cancer - guidelines that are based on both evidence and opinion, yet differ on when to start and how often to screen for breast cancer. With representation from Breast Imaging, Internal Medicine, Women's Health, Family Medicine, and Medical/Surgical Oncology, the [facility] has carefully reviewed the data and reached the following consensus: 1) All women should engage in shared decision-making with their providers to decide when to start and how often to screen; 2) All women should have the opportunity to start screening mammography at age 40; 3) For women ages 45-55, we recommend annual screening mammograms; 4) For women ages 55 and over, we support both the transition from an annual to a biennial interval if this aligns more with patient's values and preferences, or continuation with annual screening; 5) All women should discuss with their providers when to stop screening mammograms. Shirt Ironer: Jay Transcribe Date/Time: Nov 14 2023 12:51P Dictated by: AARON MARIA MD This examination was interpreted and the report reviewed and electronically signed by: AARON MARIA MD on Nov 17 2023 12:05PM EST [id number] Normal [facility] CNOVon 11-07-2023 CNOV Office Visit (OBGYWM ) FANG KILLIAN ([id number]) 1960 F Date Time Provider Department 11/07/23 4:00 PM MK SCOTT OBGYWM During your visit today, we recorded the following information about you: Blood pressure Weight Height 114/62 64.4 kg 1.664 m Mk Scott MD 11/07/2023 4:25 PM Signed Artificial Cherry Maker offered: Patient declinesAbby Headley is a 63 year old who presents for an annual gynecologic exam. Postmenopausal: Yes HRT use: No. 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 Chirinos, repeat in 10 years per patient 2012: COLONOSCOPY GEN ANES Comment: Dr. Chirinos-reportedly negative/normal. 12/2022: MASTECTOMY, SIMPLE, COMPLETE; Left 11/02/2019: TOTAL ABD HYSTERECTOMY+BLAD REPR Comment: for tx of uterine and bladder prolapse. FAMILY HISTORY Problem Relation Age of Onset No Known Problems Mother Arthritis Father Heart Attack Father 65 Prostate Cancer Father No Known Problems Sister No Known Problems Maternal Grandmother No Known Problems Maternal Grandfather No Known Problems Paternal Grandmother No Known Problems Paternal Grandfather other (Pulmonary Embolus) Daughter No Known Problems Daughter No Known Problems Son No Known Problems Son SOCIAL HISTORY Social History Tobacco Use Smoking status: Never Smokeless tobacco: Never Vaping Use Vaping Use: Never used Substance Use Topics Alcohol use: Yes Comment: rare Drug use: Never REVIEW OF SYSTEMS Abdomen: No abdominal pain, nausea, vomiting, diarrhea, or constipation. No bloating, early satiety, indigestion, or increased flatulence. Bladder: No dysuria, gross hematuria, urinary frequency, urinary urgency. Some FAIZAN with pickleball - improved after pelvic floor PT in the past. Breast: No breast lumps, nipple d/c, overlying skin changes, redness or skin retraction Allergies and current medication updated:Yes EXAM: BP 114/62 Ht 5' 5.5 (1.66m) Wt 142 lb (64.4kg) BMI 23.26 kg/(m2). GENERAL: pleasant, female in no apparent distress BREAST: Right breast - soft, non-tender, no dominant mass, normal nipple-areolar complex, no lymphadenopathy, and no nipple discharge: Left - s/p matsectomy CHEST: Normal inspiratory effort ABDOMEN: soft, non-tender, and no masses PELVIC: external genitalia normal, no vulvar lesions, normal appearing perineal body and perianal region; cystocele and apical vaginal prolapse BIMANUAL: no adnexal masses, non-tender, and uterus surgically absent RECTOVAGINAL: deferred. NEURO: alert and oriented x3,exam grossly non-focal EXTREMITIES: normal ASSESSMENT/PLAN: 1) Health maintenance: Pap/HPV screening no longer needed Mammogram - gets Nutrition, exercise and routine health maintenance exams reviewed. Colon cancer screening: up to date with screening 2) Follow up one year or sooner as needed 3) FAIZAN AND cystocele - follow up for pessary fitting Mk Scott MD Referring Provider: SELF [200] Allergies As of Date: 11/07/2023 Noted Allergy Reaction SEASONAL ALLERGIES 06/02/2020 14 - Other: See Comments Date Reviewed: 11/07/2023 Reviewed by: Mk Scott MD - Fully Assessed Reason for Visit: Yearly Exam [187] Primary Visit Diagnosis:Encounter for gynecological examination (general) (routine) without abnormal findings [Z01.419] Other Visit Diagnosis:FAIZAN (stress urinary incontinence, female) [N39.3] Prescriptions as of 11/07/2023 - alendronate (FOSAMAX) 70 mg tablet Take 1 tablet by mouth one time a week. In AM with cup of water on empty stomach. Nothing else by mouth and stay upright for 30 min. - lisinopril 2.5 mg tablet Take 1 tablet by mouth once daily. - cholecalciferol, Vitamin D3, (VITAMIN D3) 1,250 mcg (50,000 unit) cap capsule Take 1 capsule by mouth one time a week. - anastrozole (ARIMIDEX) 1 mg tablet Take 1 tablet by mouth once daily. - DHEA vaginal suppository 4 mg (CPD) Unwrap and insert 1 suppository vaginally every other night. Problem List As Of Date 11/07/2023 Noted Resolved Ess (more content not included)... Normal [facility] CT Kidney WO and W contrast Chanelle 05-26-2023 [facility] URINALYSIS, REFLEX MICROSCOP ICon 05-21-2023 Bilirubin Ql (U) Negative Negative [facility] Clarity (Unsp spec) Clear Clear [facility] Color (U) Light Yellow Yellow [facility] Glucose Test strip (U) [Mass/Vol] Negative Trace, Negative [facility] Hemoglobin Ql (U) Trace Negative, Trace [facility] Ketones Ql (U) Negative Negative, Trace [facility] Leukocyte esterase Test strip Ql (U) Negative Negative, 25 Rhona/uL [facility] Nitrite Ql (U) Negative Negative [facility] pH (U) 5.0 [pH] 5.0 - 8.0 [facility] Protein (U) [Mass/Vol] Trace Trace , Negative [facility] Specific gravity (U) [Rel density] 1.030 1.005 - 1.030 [facility] Urobilinogen Ql (U) Normal Normal [facility] 1,25-dihydroxyvitamin D3 [Ma ss/Vol]on 03-28-2023 1,25 Dihydroxy Vitamin Total 64.4 pg/mL 19.9 - 79.3 pg/mL [facility] Calcium.ionized [Moles/Vol]o n 03-28-2023 Calcium.ionized (Bld) [Mass/Vol] 1.34 mmol/L High 1.08 - 1.30 mmol/L [facility] Calcium.ionized adjusted to pH 7.4 (Bld) [Moles/Vol] 1.29 mmol/L 1.08 - 1.30 mmol/L [facility] PTH INTACT BLDon 03-28-2023 Parathyrin.intact [Mass/Vol] 58 pg/mL 15 - 65 pg/mL [facility] Renal function 2000 panelon 03-28-2023 Albumin [Mass/Vol] 4.9 g/dL 3.9 - 4.9 g/dL [facility] Anion gap [Moles/Vol] 12 mmol/L 9 - 18 mmol/L [facility] Calcium [Mass/Vol] 10.3 mg/dL High 8.5 - 10. 2 mg/dL [facility] Chloride [Moles/Vol] 106 mmol/L High 97 - 10 5 mmol/L [facility] CO2 [Moles/Vol] 26 mmol/L 22 - 30 mmol/L [facility] Creatinine [Mass/Vol] 0.67 mg/dL 0.58 - 0.96 mg/dL [facility] Estimated Glomerular Filtration Rate 100 mL/min/1.73m >=60 mL/min/1.73m [facility] Glucose [Mass/Vol] 98 mg/dL 74 - 99 mg/dL [facility] Phosphate [Mass/Vol] 4.1 mg/dL 2.7 - 4 .8 mg/dL [facility] Potassium [Moles/Vol] 4.8 mmol/L 3.7 - 5.1 mmol/L [facility] Sodium [Moles/Vol] 144 mmol/L 136 - 144 mmol/L [facility] Urea nitrogen [Mass/Vol] 14 mg/dL 7 - 21 mg/dL [facility] URINALYSIS, REFLEX MICROSCOP ICon 03-28-2023 Bilirubin Ql (U) Negative Negative [facility] Clarity (Unsp spec) Clear Clear [facility] Color (U) Light Yellow Yellow [facility] Glucose Test strip (U) [Mass/Vol] Negative Trace, Negative [facility] Hemoglobin Ql (U) Negative Negative, Trace [facility] Ketones Ql (U) Trace Negative, Trace [facility] Leukocyte esterase Test strip Ql (U) 25 Rhona/uL Negative, 25 Rhona/uL [facility] Nitrite Ql (U) Negative Negative [facility] pH (U) 5.0 [pH] 5.0 - 8.0 [facility] Protein (U) [Mass/Vol] Negative Trace , Negative [facility] Specific gravity (U) [Rel density] 1.017 1.005 - 1.030 [facility] Urobilinogen Ql (U) Negative Negative [facility] VITAMIN D 25 HYDROXYon 03-28 25-hydroxyvitamin D3 [Mass/Vol] 24.9 ng/mL Low 31.0 - 80.0 ng/mL [facility] CBC W Auto Differential pane l (Bld)on 01-06-2023 Erythrocyte distribution width (RBC) [Ratio] 12.5 % 11.5 - 15.0 % [facility] Hematocrit (Bld) [Volume fraction] 44.8 % 36.0 - 46.0 % [facility] Hemoglobin (Bld) [Mass/Vol] 14.7 g/dL 11.5 - 15.5 g/dL [facility] Immature granulocytes (Bld) [#/Vol] <0.10 k/uL [facility] MCH (RBC) [Entitic mass] 31.1 pg 26.0 - 34.0 pg [facility] MCHC (RBC) [Mass/Vol] 32.8 g/dL 30.5 - 36.0 g/dL [facility] MCV (RBC) [Entitic vol] 94.7 fL 80.0 - 100.0 fL [facility] Neutrophils (Bld) [#/Vol] 5.37 10*3/uL 1.45 - 7.50 k/uL [facility] Nucleated RBC (Bld) [#/Vol] <0.01 k/uL [facility] Platelet mean volume (Bld) [Entitic vol] 11.0 fL 9.0 - 12.7 fL [facility] Platelets (Bld) [#/Vol] 270 10*3/uL 150 - 400 k/uL [facility] RBC (Bld) [#/Vol] 4.73 10*6/uL 3.90 - 5.2 0 m/uL [facility] WBC (Bld) [#/Vol] 7.53 10*3/uL 3.70 - 11. 00 k/uL [facility] Comprehensive metabolic 2000 panelon 01-06-2023 Albumin [Mass/Vol] 4.9 g/dL 3.9 - 4.9 g/dL [facility] ALP [Catalytic activity/Vol] 58 U/L 34 - 123 U/L [facility] ALT [Catalytic activity/Vol] 21 U/L 7 - 38 U/L [facility] Anion gap [Moles/Vol] 13 mmol/L 9 - 18 mmol/L [facility] AST [Catalytic activity/Vol] 20 U/L 13 - 35 U/L [facility] Bilirubin [Mass/Vol] 0.5 mg/dL 0.2 - 1 .3 mg/dL [facility] Calcium [Mass/Vol] 10.4 mg/dL High 8.5 - 10. 2 mg/dL [facility] Chloride [Moles/Vol] 105 mmol/L 97 - 10 5 mmol/L [facility] CO2 [Moles/Vol] 24 mmol/L 22 - 30 mmol/L [facility] Creatinine [Mass/Vol] 0.61 mg/dL 0.58 - 0.96 mg/dL [facility] Estimated Glomerular Filtration Rate 102 mL/min/1.73m >=60 mL/min/1.73m [facility] Glucose [Mass/Vol] 127 mg/dL High 74 - 99 mg/dL [facility] Potassium [Moles/Vol] 4.5 mmol/L 3.7 - 5.1 mmol/L [facility] Protein [Mass/Vol] 7.8 g/dL 6.3 - 8.0 g/dL [facility] Sodium [Moles/Vol] 142 mmol/L 136 - 144 mmol/L [facility] Urea nitrogen [Mass/Vol] 13 mg/dL 7 - 21 mg/dL [facility] MRI BREAST WO/W IVCON BILon 01-03-2023 MRI BREAST WO/W IVCON DALE * * *Final Report* * * DATE OF EXAM: Jan 03 2023 11:24AM [facility] 0773 - MRI BREAST WO/W IVCON DALE / PROCEDURE REASON: Invasive ductal carcinoma of breast, left (HCC) * * * * Physician Interpretation * * * * RESULT: #[id number] - MRI BREAST WO/W IVCON DALE BREAST MRI OF BOTH BREASTS: 01/03/2023 HISTORY: Invasive Ductal Carcinoma Of Breast, Left (Hcc); Patient with new diagnosis of left breast cancer. MRI is for evaluation of extent of disease. RESULT: Comparison is made to exams dated: 12/20/2022 mammogram - [facility], 11/12/2022 mammogram, 11/12/2022 ultrasound, 11/08/2022 mammogram, and 04/24/2022 mammogram - [facility]. MRI images were obtained with a dedicated breast coil. The patient was studied using the dedicated breast coil in the 1.5 Chana scanner. Initial axial STIR imaging was carried out followed by axial T1-weighted GRE imaging both before and after IV administration of 12 mL of Dotarem. Subsequently, subtraction imaging and 3-D reconstruction were completed on an independent workstation. An additional 4 minute high resolution sequence was performed after the first two 1 minute post-contrast sequences. 3D image post-processing was performed on an independent workstation with attending physician supervision including creation of quantitative dynamic contrast uptake subtraction images and multiplanar reconstruction (MPR). FINDINGS: Bilateral background breast enhancement is mild. Fibroglandular pattern is heterogenous fibroglandular tissue. RIGHT BREAST: There is no suspicious mass, abnormal enhancement pattern, or other significant abnormality identified. LEFT BREAST: Multiple T1 hyperintense areas compatible with hemorrhagic and/or proteinaceous contents within ducts. Susceptibility artifact at 12:00 subareolar site of biopsy-proven malignancy. No suspicious enhancement in this area, likely obscured by susceptibility artifact from biopsy clip. There is no new suspicious mass, abnormal enhancement pattern, or other significant abnormality identified. NODES: There is no axillary or internal mammary adenopathy. MISCELLANEOUS: No suspicious extramammary findings are seen. Multiple T2 hyperintense, non-enhancing hepatic masses, likely cysts. IMPRESSION: KNOWN BIOPSY PROVEN MALIGNANCY RIGHT BREAST: BI-RADS 1 -Negative, no MRI evidence of malignancy LEFT BREAST: BI-RADS 6 -Susceptibility artifact at the site of biopsy-proven malignancy likely obscuring known malignancy on MRI given maximum dimension of 1.1 cm on prior ultrasound 11/12/2022. No additional new suspicious mass or abnormal enhancement. -No suspicious lymphadenopathy. The exam was reviewed by a staff physician. Juan Barnett M.D. bax,os/penrad: 023 12:01:27 Superintendent Transmission(s): Galdino Guo RT(R), [facility] MRI BI-RADS: 6 Known biopsy proven malignancy Multiple national specialty organizations have released breast cancer screening guidelines for women at average risk for developing breast cancer - guidelines that are based on both evidence and opinion, yet differ on when to start and how often to screen for breast cancer. With representation from Breast Imaging, Internal Medicine, Women's Health, Family Medicine, and Medical/Surgical Oncology, the [facility] has carefully reviewed the data and reached the following consensus: 1) All women should engage in shared decision-making with their providers to decide when to start and how often to screen; 2) All women should have the opportunity to start screening mammography at age 40; 3) For women ages 45-55, we recommend annual screening mammograms; 4) For women ages 55 and over, we support both the transition from an annual to a biennial interval if this aligns more with patient's values and preferences, or continuation with annual screening; 5) All women should discuss with their providers when to stop screening mammograms. Transcribed Using Voice Recognition Transcribe Date/Time: Jan 03 2023 11:00A Dictated by: ELIZA BARNETT MD This examination was interpreted and the report reviewed and electronically signed by: JUAN FRIAS MD on Jan 06 2023 12:01PM EST [id number] Normal [facility] No Panel Informationon 12-20 [facility] BREAST BIOPSY LEFT (POC) SURG USE ONLYon 11-18-2022 [facility] ERIK DIAG W ANTONIO BILATERALon 11-12-2022 [facility] BREAST LTD LEFTon 023 [facility] No Panel Informationon 04-25 [facility] ERIK DIAG W ANTONIO RTon 023 [facility] UA DIP, URINE (POC)on 2022 BILIRUBIN UA (POCT) Negative Negative [facility] CLARITY UA (POCT) Clear [facility] COLOR UA (POCT) Yellow [facility] GLUCOSE UA (POCT) Negative Negative mg/dL [facility] HEMOGLOBIN/BLOOD UA (POCT) Trace-intact Abnormal Negative [facility] KETONE UA (POCT) Negative Negative mg/dL [facility] LEUKOCYTES UA (POCT) Negative Negative [facility] NITRITE UA (POCT) Negative Negative [facility] PH UA (POCT) 5.0 4.5 - 8.0 [facility] Protein Ql (U) Negative Negative mg/dL [facility] SPECIFIC GRAVITY UA (POCT) >=1.030 1.005 - 1.030 [facility] UROBILINOGEN UA (POCT) 0.2 E.U./dL Tashia l E.U./dL [facility] Absolute lymphocyte counton 04-01-2022 Lymphocytes Auto (Unsp spec) [#/Vol] 1.51 10*3/uL 0.83-4.51 [facility] Work Phone: Basophil percentageon 2022 Basophils/100 WBC (Bld) 0.4 % 0-1 [facility] Work Phone: Bilirubin [Mass/Vol] 0.60 mg/dL 0.20-1.00 [facility] Work Phone: Comment on above: For patients on eltr ombopag therapy, use of Dimension [place] TBIL is not recommended. Chloride [Moles/Vol] 105 mmol/L 98-107 [facility] Work Phone: Eosinophils/100 WBC (Bld) 0.4 % 0-5 [facility] Work Phone: Glucose [Mass/Vol] 106 mg/dL 74-106 [facility] Work Phone: Comment on above: Fasting Glucose resu lt from 100 to 125 mg/dL suggests IMPAIRED HOMEOSTASIS per A.D.A. criteria. Neutrophils (Bld) [#/Vol] 9.1 10*3/uL 2.0-7.7 [facility] Work Phone: Neutrophils/100 WBC (Bld) 79.1 % 47-70 [facility] Work Phone: Potassium [Moles/Vol] 4.2 mmol/L 3.5-5.1 [facility] Work Phone: Protein [Mass/Vol] 8.0 g/dL 6.4-8.2 [facility] Work Phone: Sodium [Moles/Vol] 140 mmol/L 136-145 [facility] Work Phone: WBC (Bld) [#/Vol] 11.5 10*3/uL 4.4-11.0 [facility] Work Phone: Blood erythrocytes count (nu mber/volume)on 04-01-2022 RBC (Bld) [#/Vol] 4.54 10*6/uL 4.2-5.4 [facility] Work Phone: Blood hemoglobin measurement (mass/volume)on 04-01-2022 Hemoglobin (Bld) [Mass/Vol] 14.5 g/dL 12.0-15.0 [facility] Work Phone: Blood lymphocytes/100 leukoc yteson 04-01-2022 Lymphocytes/100 WBC (Bld) 13.2 % 19-41 [facility] Work Phone: Blood monocytes/100 leukocyt eson 04-01-2022 Monocytes/100 WBC (Bld) 6.6 % 0-10 [facility] [facility] Work Phone: Blood platelet mean volumeon 04-01-2022 Platelet mean volume (Bld) [Entitic vol] 11.0 fL 6.2-12.0 [facility] Work Phone: Determination of erythrocyte mean corpuscular volume (MCV)on 04-01-2022 MCV (RBC) [Entitic vol] 92.5 fL 81-99 [facility] Work Phone: Hematocrit Auto (Bld) [Volum e fraction]on 04-01-2022 Hematocrit (Bld) [Volume fraction] 42.0 % 37-47 [facility] Work Phone: Laboratory - Chemistry and C hemistry - challengeon 04-01-2022 ALP [Catalytic activity/Vol] 66 U/L 45-117 [facility] Work Phone: ALT [Catalytic activity/Vol] 25 U/L 13-56 [facility] Work Phone: CO2 [Moles/Vol] 27.0 mmol/L 21.0-32.0 [facility] Work Phone: Globulin (S) [Mass/Vol] 3.9 g/dL 2.2-4.2 [facility] Work Phone: Urea nitrogen/Creatinine [Mass ratio] 17.7 mg/mg 10-20 [facility] Work Phone: Laboratory - Hematology and Cell countson 04-01-2022 Erythrocyte distribution width (RBC) [Entitic vol] 42.1 fL 35.1-43.9 [facility] Work Phone: Erythrocyte distribution width (RBC) [Ratio] 12.4 % 11.6-14.6 [facility] Work Phone: Immature granulocytes/100 WBC (Bld) 0.300 % 0.0-0.9 [facility] Work Phone: Comment on above: IG% - Immature Granu locytes (promyelocytes, myelocytes and metamyelocytes) > 1% indicates that a LEFT SHIFT is Present. MCH (RBC) [Entitic mass] 31.9 pg 27.0-32.0 [facility] Work Phone: Nucleated RBC/100 WBC (Bld) [Ratio] 0 % 0-5 [facility] Work Phone: MCHC Auto (RBC) [Mass/Vol]on 04-01-2022 MCHC (RBC) [Mass/Vol] 34.5 g/dL 32-36 [facility] Work Phone: No Panel Informationon 04-01 Estimated Creatinine Clearance Calc 75.68 ml/min [facility] Work Phone: Estimated GFR (MDRD) Amer 104 mL/min >60 [facility] Work Phone: Comment on above: GFR Calc Estimated GFR (MDRD) Non-Af Amer 86 mL/min >60 [facility] Work Phone: Comment on above: Non- GFR Calc Platelets bldon 04-01-2022 Platelets (Bld) [#/Vol] 221 10*3/uL 150-450 [facility] Work Phone: Serum or plasma albumin zana urement (mass/volume)on 04-01-2022 Albumin [Mass/Vol] 4.1 g/dL 3.2-5.0 [facility] Work Phone: Serum or plasma albumin/glob ulin mass ratioon 04-01-2022 Albumin/Globulin [Mass ratio] 1.1 {ratio} 0.9-2.4 [facility] Work Phone: Serum or plasma calcium zana urement (mass/volume)on 04-01-2022 Calcium [Mass/Vol] 9.7 mg/dL 8.5-10.1 [facility] Work Phone: Serum or plasma creatinine m easurement (mass/volume)on 04-01-2022 Creatinine [Mass/Vol] 0.74 mg/dL 0.55-1.02 [facility] Work Phone: Comment on above: The validity of the calculated GFR & GFRAA in patients over 70 years has not been determined. Clinical correlation is essential. Serum or plasma urea nitroge n measurement (mass/volume)on 04-01-2022 Urea nitrogen [Mass/Vol] 13 mg/dL 7-18 [facility] Work Phone: Thin prep Papanicolaou smear with manual screeningon 04-01-2022 Thin prep Papanicolaou smear with manual screening 10 U/L 15-37 [facility] Work Phone: Thin prep Papanicolaou smear with manual screening 8 5-15 [facility] Work Phone: ERIK DIAG W ANTONIO BILATon - [facility] US BREAST LTD RTon [facility] Vital Signs Date Time Vital Sign Value Performing Clinician Faci lity 10-04-2024 15:13-0400 Diastolic blood pressure 86 mm[Hg] Bill Eugene MD Work Phone: [facility] Comment on above: Pt declined 10-04-2024 15:13-0400 Heart rate 75 /min Bill Eugene MD Work Phone: [facility] 10-04-2024 15:13-0400 Systolic blood pressure 128 mm[Hg] Bill Eugene MD Work Phone: [facility] Comment on above: Pt declined 10-04-2024 13:45-0400 Body mass index (BMI) [Ratio] 21.92 kg/m2 Bruna Nathan APRN.CNP Work Phone: [facility] 10-04-2024 13:45-0400 Body temperature 98.01 [degF] Bruna Soflkiancs ENGINEERING SURVEYOR.HEAD OF ACADEMIC TECHNOLOGY Work Phone: [facility] 10-04-2024 13:45-0400 Body weight 61.6 kg Bruna Soflkiancs ENGINEERING SURVEYOR.HEAD OF ACADEMIC TECHNOLOGY Work Phone: [facility] 10-04-2024 13:45-0400 Diastolic blood pressure 76 mm[Hg] Bruna Soflkiancs ENGINEERING SURVEYOR.HEAD OF ACADEMIC TECHNOLOGY Work Phone: [facility] 10-04-2024 13:45-0400 Heart rate 75 /min Bruna Soflkiancs ENGINEERING SURVEYOR.HEAD OF ACADEMIC TECHNOLOGY Work Phone: [facility] 10-04-2024 13:45-0400 Respiratory rate 18 /min Bruna Soflkiancs ENGINEERING SURVEYOR.HEAD OF ACADEMIC TECHNOLOGY Work Phone: [facility] 10-04-2024 13:45-0400 SaO2% (BldA) [Mass fraction] 98 % Bruna Soflkiancs ENGINEERING SURVEYOR.HEAD OF ACADEMIC TECHNOLOGY Work Phone: [facility] 10-04-2024 13:45-0400 Systolic blood pressure 118 mm[Hg] Bruna Soflkiancs ENGINEERING SURVEYOR.HEAD OF ACADEMIC TECHNOLOGY Work Phone: [facility] 10-04-2024 08:46-0400 Body mass index (BMI) [Ratio] 21.88 kg/m2 Petty Lazo MD Work Phone: [facility] 10-04-2024 08:46-0400 Body weight 61.5 kg Petty Lazo MD Work Phone: [facility] 10-04-2024 08:46-0400 Diastolic blood pressure 84 mm[Hg] Petty Lazo MD Work Phone: [facility] 10-04-2024 08:46-0400 Heart rate 70 /min Petty Lazo MD Work Phone: [facility] 10-04-2024 08:46-0400 Systolic blood pressure 147 mm[Hg] Petty Lazo MD Work Phone: [facility] 07-23-2024 13:03-0400 Body height [facility].6 cm [facility] Work Phone: [facility] 07-23-2024 13:03-0400 Body mass index (BMI) [Ratio] 23.06 kg/m2 [facility] Work Phone: [facility] 07-23-2024 13:03-0400 Body weight 64.8 kg [facility] Work Phone: [facility] 07-23-2024 13:03-0400 Diastolic blood pressure 96 mm[Hg] [facility] Work Phone: [facility] 07-23-2024 13:03-0400 Heart rate 78 /min [facility] Work Phone: [facility] 07-23-2024 13:03-0400 Systolic blood pressure 142 mm[Hg] [facility] Work Phone: [facility] 06-02-2024 13:30-0400 Body height 167.6 cm Morelia Mills MD Work Phone: [facility] 06-02-2024 13:30-0400 Body mass index (BMI) [Ratio] 22.6 kg/m2 Morelia Mills MD Work Phone: [facility] 06-02-2024 13:30-0400 Body weight 63.5 kg Morelia Mills MD Work Phone: [facility] Comment on above: weight per pt 06-02-2024 13:30-0400 Diastolic blood pressure 79 mm[Hg] Morelia Mills MD Work Phone: [facility] 06-02-2024 13:30-0400 Heart rate 68 /min Morelia Milsl MD Work Phone: [facility] 06-02-2024 13:30-0400 SaO2% (BldA) [Mass fraction] 97 % Morelia Mills MD Work Phone: [facility] 06-02-2024 13:30-0400 Systolic blood pressure 134 mm[Hg] Morelia Mills MD Work Phone: [facility] 05-05-2024 13:39-0500 Body height 167.6 cm Luz Castillo MD Work Phone: [facility] 05-05-2024 13:39-0500 Body mass index (BMI) [Ratio] 22.6 kg/m2 Luz Castillo MD Work Phone: [facility] 05-05-2024 13:39-0500 Body weight 63.5 kg Luz Castillo MD Work Phone: [facility] 05-05-2024 13:39-0500 Diastolic blood pressure 78 mm[Hg] Luz Castillo MD Work Phone: [facility] 05-05-2024 13:39-0500 Systolic blood pressure 134 mm[Hg] Luz Castillo MD Work Phone: [facility] 03-29-2024 13:20-0500 Body height 167.6 cm Kimberlee Lion MD Work Phone: [facility] 03-29-2024 13:20-0500 Body mass index (BMI) [Ratio] 23.24 kg/m2 Kimberlee Lion MD Work Phone: [facility] 03-29-2024 13:20-0500 Body temperature 97.39 [degF] Kimberlee Lion MD Work Phone: [facility] 03-29-2024 13:20-0500 Body weight 65.3 kg Kimberlee Lion MD Work Phone: [facility] 03-29-2024 13:20-0500 Diastolic blood pressure 82 mm[Hg] Kimberlee Lion MD Work Phone: [facility] 03-29-2024 13:20-0500 Heart rate 61 /min Kimberlee Lion MD Work Phone: [facility] 01-06-2025 13:20-0500 Respiratory rate 18 /min Kimberlee Lion MD Work Phone: [facility] 03-29-2024 13:20-0500 SaO2% (BldA) [Mass fraction] 100 % Kimberlee Lion MD Work Phone: [facility] Comment on above: RA 03-29-2024 13:20-0500 Systolic blood pressure 130 mm[Hg] Kimberlee Lion MD Work Phone: [facility] 03-08-2024 14:34-0500 Body mass index (BMI) [Ratio] 23.19 kg/m2 Bill Eugene MD Work Phone: [facility] 03-08-2024 14:34-0500 Body weight 64.2 kg Bill Eugene MD Work Phone: [facility] 03-08-2024 14:34-0500 Diastolic blood pressure 82 mm[Hg] Bill Eugene MD Work Phone: [facility] 03-08-2024 14:34-0500 Heart rate 77 /min Bill Eugene MD Work Phone: [facility] 03-08-2024 14:34-0500 Systolic blood pressure 129 mm[Hg] Bill Eugene MD Work Phone: [facility] 01-28-2024 15:00-0500 Diastolic blood pressure 64 mm[Hg] Ct (I-Stat) Work Phone: [facility] 01-28-2024 15:00-0500 Heart rate 66 /min Ct (I-Stat) Work Phone: [facility] 01-28-2024 15:00-0500 Systolic blood pressure 106 mm[Hg] Ct (I-Stat) Work Phone: [facility] 01-15-2024 13:12-0400 Body mass index (BMI) [Ratio] 23.43 kg/m2 Mk Scott MD Work Phone: [facility] 01-15-2024 13:12-0400 Body weight 64.86 kg Mk Scott MD Work Phone: [facility] 01-15-2024 13:12-0400 Diastolic blood pressure 70 mm[Hg] Mk Scott MD Work Phone: [facility] 01-15-2024 13:12-0400 Systolic blood pressure 124 mm[Hg] Mk Scott MD Work Phone: [facility] 01-02-2024 14:56-0400 Body mass index (BMI) [Ratio] 23.56 kg/m2 Bill Eugene MD Work Phone: [facility] 01-02-2024 14:56-0400 Body weight 65.2 kg Bill Eugene MD Work Phone: [facility] 01-02-2024 14:56-0400 Diastolic blood pressure 85 mm[Hg] Bill Eugene MD Work Phone: [facility] 01-02-2024 14:56-0400 Heart rate 80 /min Bill Eugene MD Work Phone: [facility] 01-02-2024 14:56-0400 Systolic blood pressure 143 mm[Hg] Bill Eugene MD Work Phone: [facility] 11-21-2023 15:47-0400 Body mass index (BMI) [Ratio] 23.27 kg/m2 Mk Scott MD Work Phone: [facility] 11-21-2023 15:47-0400 Body weight 64.41 kg Mk Scott MD Work Phone: [facility] 11-21-2023 15:47-0400 Diastolic blood pressure 82 mm[Hg] Mk Scott MD Work Phone: [facility] 11-21-2023 15:47-0400 Systolic blood pressure 134 mm[Hg] Mk Scott MD Work Phone: [facility] 11-07-2023 15:52-0400 Body height 166.4 cm Mk Scott MD Work Phone: [facility] 11-07-2023 15:52-0400 Body mass index (BMI) [Ratio] 23.27 kg/m2 Mk Scott MD Work Phone: [facility] 11-07-2023 15:52-0400 Body weight 64.41 kg Mk Scott MD Work Phone: [facility] 11-07-2023 15:52-0400 Diastolic blood pressure 62 mm[Hg] Mk Scott MD Work Phone: [facility] 11-07-2023 15:52-0400 Systolic blood pressure 114 mm[Hg] Mk Scott MD Work Phone: [facility] 07-03-2023 14:35-0400 Body temperature 97.5 [degF] Kimberlee Lion MD Work Phone: [facility] 07-03-2023 14:35-0400 Body weight 61.7 kg Kimberlee Lion MD Work Phone: [facility] 07-03-2023 14:35-0400 Diastolic blood pressure 67 mm[Hg] Kimberlee Lion MD Work Phone: [facility] 07-03-2023 14:35-0400 Heart rate 68 /min Kimberlee Lion MD Work Phone: [facility] 07-03-2023 14:35-0400 Respiratory rate 18 /min Kimberlee Lion MD Work Phone: [facility] 07-03-2023 14:35-0400 SaO2% (BldA) [Mass fraction] 100 % Kimberlee Lion MD Work Phone: [facility] 07-03-2023 14:35-0400 Systolic blood pressure 125 mm[Hg] Kimberlee Lion MD Work Phone: [facility] 03-28-2023 10:29-0500 Body height 165 cm Natanael Kwok MD Work Phone: [facility] 03-28-2023 10:29-0500 Body temperature 97.81 [degF] Natanael Kwok MD Work Phone: [facility] 03-28-2023 10:29-0500 Body weight 59.3 kg Natanael Kwok MD Work Phone: [facility] 03-28-2023 10:29-0500 Diastolic blood pressure 82 mm[Hg] Natanael Kwok MD Work Phone: [facility] 03-28-2023 10:29-0500 Heart rate 69 /min Natanael Kwok MD Work Phone: [facility] 03-28-2023 10:29-0500 Systolic blood pressure 121 mm[Hg] Natanael Kwok MD Work Phone: [facility] 03-06-2023 14:42-0500 Body weight 58.8 kg Kimberlee Lion MD Work Phone: [facility] 03-06-2023 14:42-0500 Diastolic blood pressure 66 mm[Hg] Kimberlee Lion MD Work Phone: [facility] 03-06-2023 14:42-0500 Heart rate 63 /min Kimberlee Lion MD Work Phone: [facility] 03-06-2023 14:42-0500 Respiratory rate 20 /min Kimberlee Lion MD Work Phone: [facility] 03-06-2023 14:42-0500 SaO2% (BldA) [Mass fraction] 100 % Kimberlee Lion MD Work Phone: [facility] 03-06-2023 14:42-0500 Systolic blood pressure 122 mm[Hg] Kimberlee Lion MD Work Phone: [facility] 01-08-2023 14:38-0400 Body height 167.6 cm [facility] Work Phone: [facility] 01-08-2023 14:38-0400 Body temperature 97.81 [degF] [facility] Work Phone: [facility] 01-08-2023 14:38-0400 Body weight 57.15 kg [facility] Work Phone: [facility] 01-08-2023 14:38-0400 Diastolic blood pressure 67 mm[Hg] [facility] Work Phone: [facility] 01-08-2023 14:38-0400 Heart rate 78 /min [facility] Work Phone: [facility] 01-08-2023 14:38-0400 SaO2% (BldA) [Mass fraction] 99 % [facility] Work Phone: [facility] 01-08-2023 14:38-0400 Systolic blood pressure 129 mm[Hg] [facility] Work Phone: [facility] 01-06-2023 07:59-0400 Body height 168 cm Kimberlee Lion MD Work Phone: [facility] 01-06-2023 07:59-0400 Body temperature 97.5 [degF] Kimberlee Lion MD Work Phone: [facility] 01-06-2023 07:59-0400 Body weight 56.97 kg Kimberlee Lion MD Work Phone: [facility] 01-06-2023 07:59-0400 Diastolic blood pressure 92 mm[Hg] Kimberlee Lion MD Work Phone: [facility] 01-06-2023 07:59-0400 Heart rate 63 /min Kimberlee Lion MD Work Phone: [facility] 01-06-2023 07:59-0400 Respiratory rate 20 /min Kimberlee Lion MD Work Phone: [facility] 01-06-2023 07:59-0400 SaO2% (BldA) [Mass fraction] 100 % Kimberlee Lion MD Work Phone: [facility] 01-06-2023 07:59-0400 Systolic blood pressure 135 mm[Hg] Kimberlee Lion MD Work Phone: [facility] 11-20-2022 14:26-0400 Body temperature 97.39 [degF] Ning Salinas MD Work Phone: [facility] 11-20-2022 14:26-0400 Diastolic blood pressure 84 mm[Hg] Ning Salinas MD Work Phone: [facility] 11-20-2022 14:26-0400 Heart rate 92 /min Ning Salinas MD Work Phone: [facility] 11-20-2022 14:26-0400 SaO2% (BldA) [Mass fraction] 96 % Ning Salinas MD Work Phone: [facility] 11-20-2022 14:26-0400 Systolic blood pressure 122 mm[Hg] Ning Salinas MD Work Phone: [facility] 11-18-2022 11:30-0400 Body height 167.6 cm Ning Salinas MD Work Phone: [facility] 11-18-2022 11:30-0400 Body temperature 97.5 [degF] Ning Salinas MD Work Phone: [facility] 11-18-2022 11:30-0400 Body weight 55.7 kg Ning Salinas MD Work Phone: [facility] 11-18-2022 11:30-0400 Diastolic blood pressure 84 mm[Hg] Ning Salinas MD Work Phone: [facility] 11-18-2022 11:30-0400 Heart rate 93 /min Ning Salinas MD Work Phone: [facility] 11-18-2022 11:30-0400 SaO2% (BldA) [Mass fraction] 98 % Ning Salinas MD Work Phone: [facility] 11-18-2022 11:30-0400 Systolic blood pressure 124 mm[Hg] Ning Salinas MD Work Phone: [facility] 11-06-2022 08:52-0400 Body weight 55.88 kg Summer Parada APRN.CNP Work Phone: [facility] 11-06-2022 08:52-0400 Diastolic blood pressure 80 mm[Hg] Summer Parada APRN.HEAD OF ACADEMIC TECHNOLOGY Work Phone: [facility] 11-06-2022 08:52-0400 Systolic blood pressure 120 mm[Hg] Summer Pardaa APRN.HEAD OF ACADEMIC TECHNOLOGY Work Phone: [facility] 04-23-2022 10:46-0500 Body weight 59.78 kg Mk Scott MD Work Phone: [facility] 04-23-2022 10:46-0500 Diastolic blood pressure 80 mm[Hg] Mk Scott MD Work Phone: [facility] 04-23-2022 10:46-0500 Systolic blood pressure 116 mm[Hg] Mk Scott MD Work Phone: [facility] 04-16-2022 17:50-0500 Body weight 59.97 kg Helder Egan MD Work Phone: [facility] 04-16-2022 17:50-0500 Diastolic blood pressure 74 mm[Hg] Helder Egan MD Work Phone: [facility] 04-16-2022 17:50-0500 Heart rate 96 /min Helder Egan MD Work Phone: [facility] 04-16-2022 17:50-0500 Respiratory rate 16 /min Helder Egan MD Work Phone: [facility] 04-16-2022 17:50-0500 SaO2% (BldA) [Mass fraction] 98 % Helder Egan MD Work Phone: [facility] 04-16-2022 17:50-0500 Systolic blood pressure 122 mm[Hg] Helder Egan MD Work Phone: [facility] 04-13-2022 08:45-0500 Diastolic blood pressure 86 mm[Hg] Helder Egan MD Work Phone: [facility] 04-13-2022 08:45-0500 Systolic blood pressure 130 mm[Hg] Helder Egan MD Work Phone: [facility] 04-13-2022 08:15-0500 Body temperature 97.39 [degF] Helder Egan MD Work Phone: [facility] 04-13-2022 08:15-0500 Body weight 61.24 kg Helder Egan MD Work Phone: [facility] 04-13-2022 08:15-0500 Heart rate 78 /min Helder Egan MD Work Phone: [facility] 04-13-2022 08:15-0500 Respiratory rate 16 /min Helder Egan MD Work Phone: [facility] 04-13-2022 08:15-0500 SaO2% (BldA) [Mass fraction] 98 % Helder Egan MD Work Phone: [facility] 04-01-2022 16:59-0500 Body height 167.64 cm [facility] Work Phone: 04-01-2022 16:59-0500 Body mass index (BMI) [Ratio] 22.6 kg/m2 [facility] Work Phone: 04-01-2022 16:59-0500 Body temperature 98 [degF] [facility] Work Phone: 04-01-2022 16:59-0500 Body weight 63.5 kg [facility] Work Phone: 04-01-2022 16:59-0500 Diastolic blood pressure 93 mm[Hg] [facility] Work Phone: 04-01-2022 16:59-0500 Heart rate 83 /min [facility] Work Phone: 04-01-2022 16:59-0500 Respiratory rate 18 /min [facility] Work Phone: 04-01-2022 16:59-0500 SaO2% (BldA) [Mass fraction] 100 % [facility] Work Phone: 04-01-2022 16:59-0500 Systolic blood pressure 182 mm[Hg] [facility] Work Phone: Encounters Encounter Date Encounter Type Care Provider Facility Start: 11-24-2024 ambulatory Fernando Pinky RAHMAN Facility:[facility] Start: 10-08-2024 End: 10-08-2024 ambulatory ROSS TEREMeek SANDERS Facility:[facility] Start: 10-04-2024 End: 10-04-2024 ambulatory ROSSMeek SANDERS Facility:[facility] Start: 10-04-2024 End: 10-04-2024 Patient encounter procedure Bruna Nathan APRN.HEAD OF ACADEMIC TECHNOLOGY Work Phone: Hematology/Oncology Start: 10-04-2024 End: 10-04-2024 ambulatory Bruna Nathan APRN.HEAD OF [employer]IC TECHNOLOGY Work Phone: Hematology/Oncology Comment on above: Invasive carcinoma o f breast (HCC) (Primary Dx); History of abnormal mammogram Start: 10-04-2024 End: 10-04-2024 Office outpatient visit 25 minutes Petty Lazo MD Work Phone: Endocrinology Comment on above: Senile osteoporosis (Primary Dx); Vitamin D deficiency Mixed hyperlipidemia (Primary Dx); Hypertension, unspecified type; Diverticulosis; Uterovaginal prolapse; Age-related osteoporosis without current pathological fracture; Chest pain on breathing Start: 10-04-2024 End: 10-04-2024 ambulatory ROSS SANDERS Facility:[facility] Start: 07-23-2024 End: 07-23-2024 Patient encounter procedure Arleen Garza APRN.HEAD OF [employer]CHN[employer]Y Work Phone: Preventive Cardiology Comment on above: Chest pain, unspecif ied type (Primary Dx); Exercise counseling; Primary hypertension; Mixed hyperlipidemia; Lack of energy; Essential hypertension; Good exercise tolerance; Need for home exercise program; Difficulty managing exercise regime; Counseling on health promotion and disease prevention Start: 07-23-2024 End: 07-23-2024 ambulatory ARLEEN GARZA Facility:[facility] Start: 06-04-2024 End: 06-04-2024 Follow-up encounter Kimberlee Onger MD Work Phone: Hematology/Oncology Comment on above: Screening for breast cancer using non-mammogram modality (Primary Dx) Start: 06-02-2024 End: 06-02-2024 ambulatory ROSS SANDERS Facility:[facility] Start: 06-02-2024 End: 06-02-2024 Patient encounter procedure Morelia Mills MD Work Phone: Preventive Cardiology Comment on above: Chest pain, unspecif ied type (Primary Dx); Primary hypertension; Mixed hyperlipidemia; Shortness of breath; Essential hypertension; Hyperlipidemia LDL goal <100; Malignant neoplasm of central portion of left female breast, unspecified estrogen receptor status (HCC) Mixed hyperlipidemia Start: 05-29-2024 End: 05-31-2024 Refill Petty Lazo MD Work Phone: Endocrinology Comment on above: Refill Request Start: 05-26-2024 End: 05-26-2024 ambulatory ROSS SANDERS Facility:[facility] Start: 05-26-2024 End: 05-26-2024 Subsequent hospital visit by physician [facility] Work Phone: Radiology Comment on above: Breast pain [N64.4] Start: 05-05-2024 End: 05-05-2024 ambulatory ROSS SANDERS [facility] [facility] Start: 05-05-2024 End: 05-05-2024 Patient encounter procedure Luz Castillo MD Work Phone: [facility] Comment on above: Genitourinary syndro me of menopause (Primary Dx); Localized osteoporosis without current pathological fracture; Vaginal vault prolapse; Encounter for screening for osteoporosis Start: 04-27-2024 End: 04-28-2024 Refill Luz Castillo MD Work Phone: [facility] Comment on above: Refill Request Start: 04-01-2024 End: 04-08-2024 Refill Skyler Mirza DO Work Phone: Internal Medicine [place] [id number] Comment on above: Refill Request Start: 03-29-2024 End: 03-29-2024 ambulatory Kimberlee Lion MD Work Phone: Hematology/Oncology Comment on above: History of breast ca ncer (Primary Dx); Breast pain Start: 03-29-2024 End: 03-29-2024 Patient encounter procedure Kimberlee Lion MD Work Phone: Hematology/Oncology Start: 03-25-2024 End: 03-25-2024 ambulatory ROSS SANDERS Facility:[facility] Start: 03-08-2024 End: 03-08-2024 [facility] Start: 03-08-2024 End: 03-08-2024 Patient encounter procedure Bill Eugene MD Work Phone: Internal Medicine [facility] Comment on above: Mixed hyperlipidemia (Primary Dx); Screening for depression; Encounter for screening examination for other mental health and behavioral disorders; Hypertension, unspecified type; Diverticulosis Start: 02-10-2024 End: 02-10-2024 ambulatory Henny Gillis PT Work Phone: [facility] Comment on above: Muscle weakness (Annamarie galdino Dx); FAIZAN (stress urinary incontinence, female) Start: 01-28-2024 End: 01-28-2024 ambulatory ROSSMeek SANDERS Facility:[facility] Start: 01-28-2024 End: 01-28-2024 Subsequent hospital visit by physician Latanya Connolly (I-Stat) Work Phone: Radiology Comment on above: Chest pain, unspecif ied type [R07.9] Start: 01-23-2024 End: 01-23-2024 Orders Only Morelia Mills MD Work Phone: Cardiology Comment on above: Mixed hyperlipidemia (Primary Dx) Start: 01-15-2024 End: 01-15-2024 ambulatory ROSSMeek SANDERS Facility:[facility] Start: 01-15-2024 End: 01-15-2024 Patient encounter procedure Mk Scott MD Work Phone: OB/Gynecology Comment on above: FAIZAN (stress urinary incontinence, female) (Primary Dx) Start: 01-12-2024 End: 01-12-2024 ambulatory ROSS SANDERS Facility:[facility] Start: 01-12-2024 End: 01-12-2024 Subsequent hospital visit by physician Raheem [facility] [place] Work Phone: Radiology Comment on above: Shortness of breath [R06.02] Start: 01-08-2024 End: 01-09-2024 Refill Kimberlee Lion MD Work Phone: Hematology/Oncology Comment on above: Refill Request Start: 01-06-2024 End: 01-06-2024 ambulatory ROSS SANDERS Facility:[facility] Start: 01-02-2024 End: 01-02-2024 ambulatory ROSS SANDERS Facility:[facility] Start: 01-02-2024 End: 01-02-2024 Office outpatient visit 15 minutes Bill Eugene MD Work Phone: Internal [facility] Comment on above: Chest pain, unspecif ied type (Primary Dx); Uterovaginal prolapse; Primary hypertension; Mixed hyperlipidemia; FAIZAN (stress urinary incontinence, female); Invasive carcinoma of breast (HCC); Shortness of breath Start: 01-02-2024 End: 01-02-2024 ambulatory Henny Gillis PT Work Phone: [facility] Comment on above: FAIZAN (stress urinary incontinence, female) (Primary Dx); Muscle weakness Start: 12-28-2023 End: 12-29-2023 ambulatory Bill Eugene MD Work Phone: Internal [facility] Comment on above: previous pcp Start: 12-15-2023 End: 12-16-2023 Refill Petty Lazo MD Work Phone: Endocrinology Comment on above: Refill Request Start: 12-05-2023 End: 12-05-2023 Orders Only Kimberlee Lion MD Work Phone: Mammogram Comment on above: Encounter for screen ing mammogram for breast cancer (Primary Dx) Start: 11-27-2023 End: 11-27-2023 ambulatory ROSS GARCIAN TOMMY Facility:[facility] Start: 11-27-2023 End: 11-27-2023 Follow-up encounter Bruna Nathan SHIRA Work Phone: Hematology/Oncology Comment on above: Encounter for routin e cancer follow-up (Primary Dx); Invasive carcinoma of breast (HCC) Start: 11-27-2023 End: 11-27-2023 Telemedicine consultation with patient Bruna Nathan SHIRA Work Phone: Hematology/Oncology Start: 11-21-2023 End: 11-21-2023 ambulatory ROSS SANDERS Facility:[facility] Start: 11-21-2023 End: 11-21-2023 Patient encounter procedure Mk Scott MD Work Phone: OB/Gynecology Comment on above: FAIZAN (stress urinary incontinence, female) (Primary Dx); Female genital prolapse, unspecified type Start: 11-17-2023 End: 11-18-2023 Documentation procedure Mammography Coordinator [facility] Department Start: 11-17-2023 End: 11-18-2023 Letter encounter Mammography Coordinator [facility] Start: 11-14-2023 End: 11-14-2023 ambulatory ROSS SANDERS Facility:[facility] Start: 11-14-2023 End: 11-14-2023 Subsequent hospital visit by physician Screen Mammo [facility] M[facility]ogram Comment on above: Invasive carcinoma o f breast (HCC) [C50.919] Start: 11-07-2023 End: 11-07-2023 ambulatory ROSS SANDERS Facility:[facility] Start: 11-07-2023 End: 11-07-2023 Patient encounter procedure Mk Scott MD Work Phone: OB/Gynecology Comment on above: Encounter for gyneco logical examination (general) (routine) without abnormal findings (Primary Dx); FAIZAN (stress urinary incontinence, female) Start: 11-07-2023 End: 11-07-2023 Patient encounter status Mk Scott MD Work Phone: [facility] Start: 10-02-2023 End: 10-02-2023 Patient encounter procedure Lyric Lopez APRN.CNP Work Phone: Dermatology Comment on above: Lentigines (Primary Dx); Multiple benign nevi; Angioma of skin; Seborrheic keratoses Start: 07-24-2023 ambulatory Luz Castillo MD Work Phone: [facility] Comment on above: DHEA suppositories Start: 07-17-2023 End: 07-17-2023 ambulatory Izabella Bunchgabriel DENNISHEAD OF ACADEMIC TECHNOLOGY Work Phone: Urology Comment on above: Renal cyst (Primary Dx) Start: 07-17-2023 End: 07-17-2023 Telemedicine consultation with patient Izabella Cuevas APRN.HEAD OF ACADEMIC TECHNOLOGY Work Phone: Urology Start: 07-15-2023 End: 07-15-2023 Refill Naomiwinston Mirza Work Phone: Internal Medicine [facility] [place] Comment on above: Refill Request Hyperparathyroidism (HCC) (Primary Dx); Hypercalciuria; Osteoporosis, unspecified osteoporosis type, unspecified pathological fracture presence Start: 07-03-2023 End: 07-04-2023 ambulatory Kimberlee Lion MD Work Phone: Hematology/Oncology Comment on above: Invasive carcinoma o f breast (HCC) (Primary Dx); Hypercalcemia Start: 07-03-2023 End: 07-04-2023 Patient encounter procedure Lyric Lopez APRN.HEAD OF ACADEMIC TECHNOLOGY Work Phone: Dermatology Comment on above: Nevus of left upper arm (Primary Dx); Fibrous papule of nose Start: 06-03-2023 End: 06-03-2023 Subsequent hospital visit by physician [facility] Start: 05-26-2023 End: 05-26-2023 Subsequent hospital visit by physician [facility] (I-Stat) Work Phone: Cat Scan Comment on above: Renal lesion [N28.9] Start: 05-21-2023 End: 05-21-2023 Patient encounter procedure Juan Abdul MD Work Phone: Urology Comment on above: Renal lesion (Primar y Dx); Other specified disorders of kidney and ureter Start: 05-21-2023 ambulatory Juan Abdul MD Work Phone: Urology Start: 05-21-2023 Telephone encounter Petty Lazo MD Work Phone: Endocrinology Start: 05-20-2023 End: 05-20-2023 Office outpatient visit 25 minutes Nona Phillips MD Work Phone: [facility] Comment on above: Malignant neoplasm o f central portion of left female breast, unspecified estrogen receptor status (HCC) (Primary Dx) Start: 03-28-2023 ambulatory Natanael Kwok MD Work Phone: Kidney [facility] Start: 03-28-2023 End: 03-28-2023 Patient encounter procedure Natanael Kwok MD Work Phone: Kidney [facility] Comment on above: Other specified diso rders of kidney and ureter (Primary Dx); Abnormal finding on diagnostic imaging of kidney; Hypercalcemia Start: 03-06-2023 End: 03-06-2023 ambulatory Kimberlee Lion MD Work Phone: Hematology/Oncology Comment on above: Invasive carcinoma o f breast (HCC) (Primary Dx) Start: 03-06-2023 End: 03-06-2023 Patient encounter procedure Kimberlee Lion MD Work Phone: [facility] Start: 03-03-2023 End: 03-03-2023 ambulatory Amanda Lemon PT [facility] Comment on above: Malignant neoplasm o f central portion of left female breast, unspecified estrogen receptor status (HCC) (Primary Dx) Start: 02-12-2023 End: 02-12-2023 ambulatory Amanda Lemon PT [place] [facility] Physical [facility] Comment on above: Malignant neoplasm o f central portion of left female breast, unspecified estrogen receptor status (HCC) (Primary Dx) Start: 02-11-2023 ambulatory Kimberlee Lion MD Work Phone: Hematology/Oncology Comment on above: osteoporosis Start: 02-01-2023 ambulatory Kimberlee Lion MD Work Phone: Hematology/Oncology Comment on above: No chemo needed! Start: 02-01-2023 E-mail encounter fro m caregiver Kimberlee Lion MD Work Phone: [facility] Start: 01-27-2023 Orders Only Kimberlee Lion MD Work Phone: Hematology/Oncology Comment on above: Hypercalcemia (Prima ry Dx) Start: 01-24-2023 Telephone encounter Flor phelan RN Work Phone: Hematology/Oncology Comment on above: Sorority Supervisor - O ther (Oncotype order) Start: 01-23-2023 End: 01-23-2023 Patient encounter procedure Kierra German MD Work Phone: Radiation Oncology Comment on above: Invasive carcinoma o f breast (HCC) (Primary Dx) Start: 01-11-2023 Refill Morelia Echols APRN.CNP Work Phone: [facility] Comment on above: Refill Request Start: 01-08-2023 End: 01-08-2023 Admission to establishment [facility] Work Phone: [facility] Start: 01-08-2023 End: 01-08-2023 ambulatory [facility] Work Phone: Pre Anesthesia Comment on above: Preoperative examina tion (Primary Dx); Essential hypertension; Mixed hyperlipidemia Start: 01-08-2023 End: 01-08-2023 Preprocedural examination done [facility] Work Phone: [facility] Work Phone: Start: 01-07-2023 ambulatory Kimberlee Lion MD Work Phone: Hematology/Oncology Comment on above: Bone Density Screeni ng Start: 01-06-2023 End: 01-06-2023 Office outpatient visit 40 minutes Nona Phillips MD Work Phone: Breast Center Comment on above: Malignant neoplasm o f central portion of left female breast, unspecified estrogen receptor status (HCC) (Primary Dx) Start: 01-06-2023 End: 01-06-2023 ambulatory Kimberlee Lion MD Work Phone: Hematology/Oncology Comment on above: Cancer of breast, in traductal, left (Primary Dx); Encounter for screening for osteoporosis; Does not have primary care provider; Vaginal dryness Lymphedema (Primary Dx); Malignant neoplasm of central portion of left female breast, unspecified estrogen receptor status (HCC); Pre-op testing Patient Education (L EFT Mastectomy LEFT SNLBX) Start: 01-06-2023 Patient encounter status Bernice Martinez RN Work Phone: [facility] Work Phone: Start: 01-06-2023 End: 01-06-2023 Patient encounter procedure Kimberlee Lion MD Work Phone: [facility] Comment on above: Invasive carcinoma o f breast (HCC) (Primary Dx) Start: 01-03-2023 ambulatory [facility] Facility: [facility] Start: 01-03-2023 End: 01-03-2023 Subsequent hospital visit by physician Mri [facility] (I-Stat/1.5t) RADIO MRI [facility] Comment on above: Invasive ductal carc inoma of breast, left (HCC) [C50.912] Start: 12-25-2022 Telephone encounter Lalitha Perea RN Mammography Comment on above: Results Invasive ductal carc inoma of breast, left (HCC) (Primary Dx) Appointment (Dr Sony monteiro) Start: 12-20-2022 End: 12-20-2022 Subsequent hospital visit by physician Procedure Mammo [facility] Comment on above: Abnormal mammogram [ R92.8] Start: 11-20-2022 End: 11-20-2022 Patient encounter procedure Ning Salinas MD Work Phone: General Surgery Comment on above: Status post breast b iopsy (Primary Dx) Start: 11-19-2022 Telephone encounter Ning Alvarez MD Work Phone: General Surgery Comment on above: Patient Question Start: 11-18-2022 End: 11-18-2022 Patient encounter procedure Ning Salinas MD Work Phone: General Surgery Comment on above: Screening for colon cancer; Abnormal ultrasound of breast; Postoperative pain Start: 11-12-2022 End: 11-12-2022 Subsequent hospital visit by physician Diagnostic Mammo [facility] Mammogram Comment on above: Mass overlapping mul tiple quadrants of left breast [N63.25] Start: 11-08-2022 End: 11-08-2022 [facility] Comment on above: Canceled (Pt cx: Ida ointment Conflict) Start: 11-06-2022 End: 11-06-2022 Patient encounter procedure Summer Parada APRN.HEAD OF ACADEMIC TECHNOLOGY Work Phone: OB/Gynecology Comment on above: Mass overlapping mul tiple quadrants of left breast (Primary Dx) Start: 11-03-2022 ambulatory Mk Lombardo Work Phone: OB/Gynecology Comment on above: Breast Lump Start: 10-16-2022 ambulatory Helder Egan MD Work Phone: Internal Medicine [facility] [place] Start: 10-07-2022 Refill Helder Egan MD Work Phone: [facility] Comment on above: Refill Request Start: 10-03-2022 End: 10-03-2022 ambulatory [facility] Work Phone: Start: 10-03-2022 End: 10-03-2022 Patient encounter procedure [facility] Work Phone: Start: 08-23-2022 End: 08-23-2022 ambulatory Henny Caicedo PT Work Phone: [facility] Comment on above: Muscle weakness (Annamarie galdino Dx); Urinary urgency Start: 07-26-2022 End: 07-26-2022 ambulatory Henny Caicedo PT Work Phone: [facility] Comment on above: Urinary urgency (Annamarie galdino Dx); Muscle weakness Start: 06-25-2022 Refill Morelia Echols APRN.HEAD OF ACADEMIC TECHNOLOGY Work Phone: [facility] Comment on above: Refill Request Start: 04-28-2022 ambulatory Morelia Echols APRN.HEAD OF ACADEMIC TECHNOLOGY Work Phone: Family [facility] [place] Comment on above: blood pressure Start: 04-25-2022 End: 04-25-2022 Subsequent hospital visit by physician Us [facility] 1 Work Phone: Radiology Comment on above: Abnormal CT of the a bdomen [R93.5] Start: 04-24-2022 End: 04-24-2022 Subsequent hospital visit by physician Diagnostic Mammo [facility] Mammogram Start: 04-23-2022 End: 04-23-2022 Patient encounter procedure Mk Scott MD Work Phone: OB/Gynecology Comment on above: Urinary urgency (Annamarie galdino Dx); LLQ abdominal pain; Abnormal CT of the abdomen; Adnexal mass Start: 04-19-2022 Telephone encounter Fernando Egan MD Work Phone: [facility] Comment on above: Patient Question Start: 04-18-2022 End: 04-18-2022 Subsequent hospital visit by physician Ct Prep [facility] Cat Scan Start: 04-18-2022 Telephone encounter Fernando Egan MD Work Phone: Family [facility] Comment on above: Results; Appointment Start: 04-17-2022 Telephone encounter Fernando Egan MD Work Phone: [facility] Comment on above: Patient Update Start: 04-16-2022 End: 04-16-2022 Patient encounter procedure Helder Egan MD Work Phone: [facility] Comment on above: Left lower quadrant abdominal pain (Primary Dx) Start: 04-15-2022 Telephone encounter Fernando Egan MD Work Phone: Family [facility] Comment on above: Results Start: 04-13-2022 End: 04-13-2022 Patient encounter procedure Helder Egan MD Work Phone: [facility] Comment on above: LLQ abdominal pain ( Primary Dx) Start: 04-01-2022 End: 04-01-2022 [facility] Start: 03-11-2022 ambulatory Helder Egan MD Work Phone: [facility] Comment on above: blood pressure Start: 03-08-2022 Telephone encounter Fernando Egan MD Work Phone: [facility] [place] Comment on above: Results Start: 09-11-2021 End: 09-11-2021 Subsequent hospital visit by physician Diagnostic Mammo [facility] Mammogram Comment on above: Abnormal mammogram [ R92.8] Start: 07-02-2021 Refill Morelia Echols APRN.HEAD OF ACADEMIC TECHNOLOGY Work Phone: [facility] [place] Comment on above: Refill Request Procedures Date Procedure Procedure Detail Performing Clinician Start: 07-23-2024 Cv strs tst xers&/or rx cont ecg trcg only Arleen Garza ENGINEERING SURVEYOR.HEAD OF ACADEMIC TECHNOLOGY Work Phone: Start: 06-02-2024 Ecg routine ecg w/le ast 12 lds i&r only Morelia Mills MD Work Phone: Start: 05-26-2024 Us breast uni real t saul with image limited Kimberlee Lion MD Work Phone: Start: 05-26-2024 Digital breast tomosynthesis unilateral Kimberlee Lion MD Work Phone: Start: 03-08-2024 Adult depression scr eening assessment Bill Eugene MD Work Phone: Start: 01-28-2024 Cta hrt cornry art/b ypass grfts contrst 3d post John Persits DO Work Phone: Start: 01-06-2024 Lipid 1996 panel - S tio or Plasma Kimberlee Lion MD Work Phone: Start: 05-26-2023 Ct abdomen w/o & w/contrast material Juan Abdul MD Work Phone: Start: 05-21-2023 Urnls dip stick/tabl et rgnt auto w/o microscopy Bulk Order Provider Start: 03-28-2023 Urnls dip stick/tabl et rgnt auto w/o microscopy Bulk Order Provider Start: 03-28-2023 Lipid 1996 panel - S tio or Plasma Natanael Kwok MD Work Phone: Start: 12-20-2022 Bx breast w/device 1 st lesion ultrasound guid Nona Phillips MD Work Phone: Start: 12-20-2022 Digital breast tomosynthesis unilateral Nona Phillips MD Work Phone: Start: 11-18-2022 US BREAST BIOPSY LEF T (POC) SURG USE ONLY Ning Salinas MD Work Phone: Start: 11-12-2022 End: 11-12-2022 Mammography Summer aPrada ENGINEERING SURVEYOR.HEAD OF ACADEMIC TECHNOLOGY Work Phone: Start: 04-25-2022 Us pelvic nonobstetr ic image dcmtn limited/f/u Mk Scott MD Work Phone: Start: 04-24-2022 ERIK DIAG W ANTONIO RIGHT C kirstie Egan MD Work Phone: Start: 04-23-2022 Urnls dip stick/tabl et rgnt auto w/o microscopy Mk Scott MD Work Phone: Start: 03-06-2022 Lipid 1996 panel - S tio or Plasma Procedure Main Start: 09-11-2021 End: 09-11-2021 Digital breast tomosynthesis bilateral Morelia Echols ENGINEERING SURVEYOR.HEAD OF ACADEMIC TECHNOLOGY Work Phone: Start: 08-15-2020 Mammography Morelia weaver ENGINEERING SURVEYOR.HEAD OF ACADEMIC TECHNOLOGY Work Phone: Start: 06-18-2020 Adult depression scr eening assessment Morelia Vacalogzander ENGINEERING SURVEYOR.HEAD OF ACADEMIC TECHNOLOGY Work Phone: Plan of Treatment Date Care Activity Detail Author Start: 2036 RSV Vaccine (1 - 1-dose 75+ series) RSV Vaccine (1 - 1-dose 75+ series) [facility] Start: 05-22-2032 Colonoscopy COLONOSCOPY [facility] Start: 05-22-2032 COLORECTAL CANCER SCREENING COLORECTAL CANCER SCREENING [facility] Start: 05-22-2032 Screening for malignant neoplasm of colon [facility] Start: 01-05-2029 Lipid panel Lipid Screening [facility] Start: 03-28-2028 Lipid panel Lipid Screening [facility] Start: 03-06-2027 Lipid 1996 panel - Serum or Plasma Lipid Screening [facility] Start: 03-06-2027 Lipid panel Lipid Screening [facility] Start: 03-06-2027 LIPID SCREEN LIPID SCREEN [facility] Start: 01-05-2027 Diabetes Screening Diabetes Screening [facility] Start: 10-13-2026 Diabetes Screening Diabetes Screening [facility] Start: 08-29-2026 Urine microalbumin profile [facility] Start: 05-03-2026 Diabetes Screening Diabetes Screening [facility] Start: 03-28-2026 Diabetes Screening Diabetes Screening [facility] Start: 01-06-2026 Diabetes Screening Diabetes Screening [facility] Start: 10-04-2025 Annual PCP Team Chronic Disease Visit Annual PCP Team Chronic Disease Visit [facility] Start: 06-21-2025 LIPID SCREEN LIPID SCREEN [facility] Start: 04-13-2025 DIABETES SCREEN DIABETES SCREEN [facility] Start: 04-13-2025 Diabetes Screening Diabetes Screening [facility] Start: 03-08-2025 Annual PCP Team Chronic Disease Visit Annual PCP Team Chronic Disease Visit [facility] Start: 03-08-2025 Anxiety Screening Anxiety Screening [facility] Start: 03-08-2025 Depression Screening Depression Screening [facility] Start: 03-06-2025 DIABETES SCREEN DIABETES SCREEN [facility] Start: 01-14-2025 BP Controlled (<130/80) BP Controlled (<130/80) [facility] Start: 01-03-2025 End: 01-03-2025 Follow-up encounter 01/03/2025 4:00 PM EDT Visit (SP) Office Hematology/Oncology [id number] [place] [address] Kimberlee Lion MD [address] [place] [address] Follow up per wq Hematology/Oncology Comment on above: Follow up per wq Start: 01-03-2025 End: 01-03-2025 Patient encounter procedure 01/03/2025 2:50 PM EDT Appointment Radiology [address] [address] [M81.0, E55.9] DXA AXIAL SKELETON Radiology Comment on above: [M81.0, E55.9] DXA AXIAL SKELETON Start: 01-01-2025 Annual PCP Team Chronic Disease Visit Annual PCP Team Chronic Disease Visit [facility] Start: 12-17-2024 End: 12-17-2024 Patient encounter procedure 12/17/2024 3:40 PM EDT Office Visit OB/Gynecology [address] [place] [address] Mk Scott MD [address] [place] [address] 2nd attempt- ANNUAL OB/Gynecology Comment on above: 2nd attempt- ANNUAL Start: 12-13-2024 End: 12-13-2024 ambulatory 12/13/2024 4:00 PM EDT [facility] Internal [facility] [address] [place], [place] [id number] Bill Eugene MD [address] [place] [address] 10 week virtual Internal Medicine [facility] Comment on above: 10 week virtual Start: 12-07-2024 End: 12-07-2024 Patient encounter procedure 12/07/2024 3:30 PM EDT Appointment Mammogram [address] [place] [address] [Z87.898] US BREAST LTD RIGHT, ERIK DIAG W ANTONIO Mammogram Comment on above: [Z87.898] US BREAST LTD RIGHT, ERIK DIAG W ANTONIO Start: 12-05-2024 End: 07-05-2025 MR Breast - bilateral WO and W contrast IV MRI BREAST WO/W IVCON BILATERAL Radiology Routine Screening for breast cancer using non-mammogram modality Expected: 12/05/2024 (Approximate), Expires: 07/05/2025 [facility] Work Phone: Comment on above: Expected: 12/05/2024 (Approximate), Expi res: 07/05/2025 Start: 12-05-2024 End: 07-05-2025 MRI BREAST 3D POST PROCESSING MRI BREAST 3D POST PROCESSING Radiology Routine Screening for breast cancer using non-mammogram modality Expected: 12/05/2024 (Approximate), Expires: 07/05/2025 [facility] Comment on above: Expected: 12/05/2024 (Approximate), Expi res: 07/05/2025 Start: 12-04-2024 End: 01-03-2025 DBT Breast - bilateral screening ERIK SCREENING W ANTONIO Radiology Routine Encounter for screening mammogram for breast cancer Expected: 12/04/2024 (Approximate), Expires: 01/03/2025 [facility] Work Phone: Comment on above: Expected: 12/04/2024 (Approximate), Expi res: 01/03/2025 Start: 11-26-2024 End: 11-03-2025 DBT Breast - right diagnostic for implant ERIK DIAG W ANTONIO RIGHT Radiology Routine History of abnormal mammogram Expected: 11/26/2024, Expires: 11/03/2025 [facility] Work Phone: Comment on above: Expected: 11/26/2024, Expires: Start: 11-26-2024 End: 11-03-2025 US Breast - right limited US BREAST LTD RIGHT Radiology Routine History of abnormal mammogram Expected: 11/26/2024 (Approximate), Expires: 11/03/2025 [facility] Comment on above: Expected: 11/26/2024 (Approximate), Expi res: 11/03/2025 Start: 11-25-2024 End: 11-25-2024 Patient encounter procedure 11/25/2024 4:00 PM EDT Office Visit OB/Gynecology [address] [place] [id number] Mk Scott MD [address] [place] [id number] ANNUAL OB/Gynecology Comment on above: ANNUAL Start: 11-22-2024 Influenza vaccination [facility] Start: 11-13-2024 Screening for malignant neoplasm of breast Mammogram Screening [facility] Start: 11-09-2024 End: 11-09-2024 Patient encounter procedure 11/09/2024 1:20 PM EDT Office Visit OB/Gynecology [address] [place] [address] Mk Scott MD [address] [place] [address] ANNUAL OB/Gynecology Comment on above: ANNUAL Start: 11-06-2024 BP Controlled (<130/80) BP Controlled (<130/80) [facility] in Start: 10-04-2024 End: 01-03-2025 25-hydroxyvitamin D3 [Mass/volume] in Serum or Plasma VITAMIN D 25 HYDROXY Lab Routine Senile osteoporosis Vitamin D deficiency Expected: 10/04/2024, Expires: 01/03/2025 [facility] Comment on above: Expected: 10/04/2024, Expires: Start: 10-04-2024 End: 01-03-2025 Calcium [Mass/volume] in Serum or Plasma CALCIUM, TOTAL Lab Routine Senile osteoporosis Vitamin D deficiency Expected: 10/04/2024, Expires: 01/03/2025 [facility] Comment on above: Expected: 10/04/2024, Expires: Start: 10-04-2024 End: 01-03-2025 Calcium.ionized [Moles/volume] in Blood CALCIUM, IONIZED Lab Routine Senile osteoporosis Vitamin D deficiency Expected: 10/04/2024, Expires: 01/03/2025 [facility] Comment on above: Expected: 10/04/2024, Expires: Start: 10-04-2024 End: 01-03-2025 CBC panel - Blood by Automated count COMPLETE BLOOD COUNT Lab Routine Mixed hyperlipidemia Hypertension, unspecified type Expected: 10/04/2024, Expires: 01/03/2025 [facility] Comment on above: Expected: 10/04/2024, Expires: Start: 10-04-2024 End: 01-03-2025 Comprehensive metabolic 2000 panel - Serum or Plasma COMPREHENSIVE METABOLIC PANEL Lab Routine Mixed hyperlipidemia Hypertension, unspecified type Expected: 10/04/2024, Expires: 01/03/2025 [facility] Comment on above: Expected: 10/04/2024, Expires: Start: 10-04-2024 End: 11-03-2025 CT Chest WO contrast CT CHEST WO IVCON Radiology Routine Chest pain on breathing Expected: 10/04/2024 (Approximate), Expires: 11/03/2025 [facility] Work Phone: Comment on above: Expected: 10/04/2024 (Approximate), Expi res: 11/03/2025 Start: 10-04-2024 End: 01-03-2025 Hemoglobin A1c in Blood HEMOGLOBIN A1C Lab Routine Mixed hyperlipidemia Hypertension, unspecified type Expected: 10/04/2024, Expires: 01/03/2025 [facility] Comment on above: Expected: 10/04/2024, Expires: Start: 10-04-2024 End: 01-03-2025 Lipid 1996 panel - Serum or Plasma LIPID PANEL, FASTING Lab Routine Mixed hyperlipidemia Hypertension, unspecified type Expected: 10/04/2024, Expires: 01/03/2025 [facility] Comment on above: Expected: 10/04/2024, Expires: Start: 10-04-2024 End: 01-03-2025 Parathyrin.intact [Mass/volume] in Serum or Plasma PTH INTACT Lab Routine Senile osteoporosis Vitamin D deficiency Expected: 10/04/2024, Expires: 01/03/2025 [facility] Comment on above: Expected: 10/04/2024, Expires: Start: 10-04-2024 End: 01-03-2025 Thyrotropin [Units/volume] in Serum or Plasma THYROID STIMULATING HORMONE Lab Routine Mixed hyperlipidemia Expected: 10/04/2024, Expires: 01/03/2025 [facility] Comment on above: Expected: 10/04/2024, Expires: Start: 10-04-2024 End: 10-04-2024 Follow-up encounter 10/04/2024 1:30 PM EDT Visit (SP) Office Hematology/Oncology [address] [place] [address] Bruna Nathan, ENGINEERING SURVEYOR.HEAD OF ACADEMIC TECHNOLOGY [address] [place] [address] FOLLOW UP Hematology/Oncology Comment on above: FOLLOW UP Start: 10-04-2024 End: 10-04-2024 Patient encounter procedure Internal Medicine [facility] Comment on above: 6 MOTHS FOLLOW UP osteoporosis Start: 07-02-2024 BP Controlled (<130/80) BP Controlled (<130/80) [facility] inic Start: 06-23-2024 End: 06-23-2024 Patient encounter procedure 06/23/2024 1:15 PM EDT Office Visit Preventive Cardiology [address] [place] [address] Cardiac Rehab [facility] Comment on above: Cardiac Rehab Start: 06-02-2024 End: 06-02-2024 ambulatory 06/02/2024 12:45 PM EDT Results Only Cardiology [address] [place] [address] dx: Primary hypertension; Mixed hyperlipidemia; Shortness of breath Cardiology Comment on above: dx: Primary hypertension; Mixed hyperlip idemia; Shortness of breath Start: 06-02-2024 End: 06-02-2024 Patient encounter procedure [facility] Comment on above: dx: Primary hypertension; Mixed hyperlip idemia; Shortness of breath Start: 05-26-2024 End: 05-26-2024 Patient encounter procedure Mammogram Comment on above: US needs scheduled, Comp- ERIK DIAGNOSTIC RIGHT (mastalgia, lt mastectomy '23) Breast pain [N64.4] Start: 04-09-2024 End: 04-09-2024 Patient encounter procedure 04/09/2024 2:00 PM EST Office Visit Internal Medicine [facility] [address] [place] [address] Navi Tello MD [address] [place] [address] To ESTABLISH PRIMARY CARE Internal Medicine [facility] Comment on above: To ESTABLISH PRIMARY CARE Start: 04-07-2024 End: 04-07-2024 Patient encounter procedure 04/07/2024 10:00 AM EST Appointment Mammogram [address] [place] [address] US BREAST LTD RIGHT Mammogram Comment on above: US BREAST LTD RIGHT Start: 03-29-2024 End: 04-28-2025 MG Breast - right Diagnostic for implant ERIK DIAGNOSTIC RIGHT Radiology Routine Breast pain Expected: 03/29/2024 (Approximate), Expires: 04/28/2025 [facility] Work Phone: Comment on above: Expected: 03/29/2024 (Approximate), Expi res: 04/28/2025 Start: 03-29-2024 End: 04-28-2025 US Breast - right limited US BREAST LTD RIGHT Radiology Routine Breast pain Expected: 03/29/2024 (Approximate), Expires: 04/28/2025 [facility] Comment on above: Expected: 03/29/2024 (Approximate), Expi res: 04/28/2025 Start: 03-29-2024 End: 03-29-2024 Follow-up encounter 03/29/2024 1:30 PM EST Visit (SP) Office Hematology/Oncology [address] [place] [id number] Kimberlee Lion MD [address] [place] [address] FOLLOW UP Hematology/Oncology Comment on above: FOLLOW UP Start: 03-27-2024 Annual PCP Team Chronic Disease Visit Annual PCP Team Chronic Disease Visit [facility] Start: 03-08-2024 End: 03-08-2024 Patient encounter procedure 03/08/2024 3:15 PM EST Office Visit Internal Medicine [facility] [address] [place] [address] Bill Eugene MD [address] [place] [address] follow-up visit from 01/02/24 Internal Medicine [facility] [place] Comment on above: follow-up visit from 01/02/24 Start: 03-06-2024 BP Controlled (<130/80) BP Controlled (<130/80) [facility] Start: 02-13-2024 BP Controlled (<130/80) BP Controlled (<130/80) [facility] Start: 02-10-2024 End: 02-10-2024 ambulatory 02/10/2024 3:00 PM EST OT/PT/Speech Visit [facility] [address] [place] [address] Henny Henry, PT [address] [place] [address] FAIZAN (stress urinary incontinence, female) [N39.3] [facility] Comment on above: FAIZAN (stress urinary incontinence, female ) [N39.3] Start: 01-28-2024 End: 01-28-2024 Patient encounter procedure Radiology Comment on above: CTA CORONARY W IVCON Start: 01-18-2024 Covid-19 Vaccine () Covid-19 Vaccine () [facility] Start: 01-13-2024 End: 01-13-2024 Patient encounter procedure 01/13/2024 3:20 PM EDT Office Visit OB/Gynecology [address] [place] [address] Mk Scott MD [address] [place] [address] Pessary insertion- size 4 in nursing area OB/Gynecology Comment on above: Pessary insertion- size 4 in nursing are a Start: 01-09-2024 BP Controlled (<130/80) BP Controlled (<130/80) [facility] Start: 01-06-2024 End: 01-06-2024 Patient encounter procedure 01/06/2024 3:20 PM EDT Office Visit OB/Gynecology [address] [place] [address] Mk Scott MD [address] [place] [address] Pessary insertion- size 4 in nursing area OB/Gynecology Comment on above: Pessary insertion- size 4 in nursing are a Start: 01-02-2024 End: 01-02-2024 Patient encounter procedure 01/02/2024 3:15 PM EDT Office Visit Internal [facility] [address] [place] [address] Bill Eugene MD [address] [place] [address] Office Visit as per pt. Internal Medicine [facility] Comment on above: Office Visit as per pt. Start: 01-02-2024 End: 01-02-2024 ambulatory 01/02/2024 7:45 AM EDT OT/PT/Speech Visit [facility] [address] [place], [place] [id number] Henny Henry, PT [address] [place], [place] [id number] FAIZAN (stress urinary incontinence, female) [N39.3] [facility] Comment on above: FAIZAN (stress urinary incontinence, female ) [N39.3] Start: 12-08-2023 End: 12-08-2023 Follow-up encounter 12/08/2023 3:00 PM EDT Visit (SP) Office Hematology/Oncology [address] [place] [address] Bruna Nathan, BETO.HEAD OF ACADEMIC TECHNOLOGY [address] [place] [address] FOLLOW UP Hematology/Oncology Comment on above: FOLLOW UP Start: 11-27-2023 End: 11-27-2023 Follow-up encounter 11/27/2023 2:30 PM EDT [facility] Hematology/Oncology [address] [place] [address] Bruna Nathan, BETO.HEAD OF ACADEMIC TECHNOLOGY [address] [place] [address] FOLLOW UP Hematology/Oncology Comment on above: FOLLOW UP Start: 11-23-2023 Influenza vaccination [facility] Start: 11-21-2023 End: 11-21-2023 Patient encounter procedure 11/21/2023 4:20 PM EDT Office Visit OB/Gynecology [address] [address] Mk Scott MD [address] [place] [address] PESSARY FITTING OB/Gynecology Comment on above: PESSARY FITTING Start: 11-17-2023 End: 11-17-2023 Follow-up encounter 11/17/2023 3:00 PM EDT Visit (SP) Office Hematology/Oncology [address] [place] [address] Bruna Nathan APRN.HEAD OF ACADEMIC TECHNOLOGY [address] [place] [address] FOLLOW UP Hematology/Oncology Comment on above: FOLLOW UP Start: 11-14-2023 End: 11-14-2023 Patient encounter procedure 11/14/2023 2:50 PM EDT Appointment Mammogram [address] [place] [address] ERIK SCREENING W ANTONIO Mammogram Comment on above: ERIK SCREENING W ANTONIO Start: 11-13-2023 Mammography [facility] Start: 11-13-2023 Screening for malignant neoplasm of breast Mammogram Screening [facility] Start: 11-07-2023 End: 11-07-2023 Patient encounter procedure 11/07/2023 4:00 PM EDT Office Visit OB/Gynecology [address] [place] [address] Mk Scott MD [address] [place] [address] pelvic exam OB/Gynecology Comment on above: pelvic exam Start: 10-11-2023 End: 10-11-2023 ambulatory 10/11/2023 7:30 AM EDT Results Only [place] [facility] [address] [place] [address] [place] [facility] Start: 10-02-2023 End: 10-02-2023 Patient encounter procedure 10/02/2023 3:30 PM EDT Office Visit Dermatology [address] [address] Lyric Lopez APRN.HEAD OF ACADEMIC TECHNOLOGY [address] [place] [address] [facility] D[facility]atology Comment on above: [facility] Start: 09-10-2023 End: 09-10-2023 Patient encounter procedure 09/10/2023 11:00 AM EDT Office Visit Endocrinology [address] [place] [address] Carine Vasquez MD [address] [place] [address] NEW CONSULT Endocrinology Comment on above: NEW CONSULT Start: 07-17-2023 End: 07-17-2023 ambulatory 07/17/2023 4:30 PM EDT [facility] [address] [address] Izabella Cuevas APRN.HEAD OF ACADEMIC TECHNOLOGY [address] [place] [address] VV for a read per CC Chart(renal lesions) Urology Comment on above: VV for a read per CC Chart(renal lesions ) Start: 07-15-2023 End: 10-14-2023 25-hydroxyvitamin D3 [Mass/volume] in Serum or Plasma VITAMIN D 25 HYDROXY Lab Routine Hyperparathyroidism (HCC) Hypercalciuria Osteoporosis, unspecified osteoporosis type, unspecified pathological fracture presence Expected: 07/15/2023, Expires: 10/14/2023 [facility] Comment on above: Expected: 07/15/2023, Expires: Start: 07-15-2023 End: 10-14-2023 Calcitriol [Mass/volume] in Serum or Plasma VITAMIN D1 25-DIHYDR Lab Routine Hyperparathyroidism (HCC) Hypercalciuria Osteoporosis, unspecified osteoporosis type, unspecified pathological fracture presence Expected: 07/15/2023, Expires: 10/14/2023 [facility] Comment on above: Expected: 07/15/2023, Expires: Start: 07-15-2023 End: 10-14-2023 Collagen crosslinked C-telopeptide [Mass/volume] in Serum or Plasma C TELOPEPTIDE, BETA Lab Routine Hyperparathyroidism (HCC) Hypercalciuria Osteoporosis, unspecified osteoporosis type, unspecified pathological fracture presence Expected: 07/15/2023, Expires: 10/14/2023 [facility] Comment on above: Expected: 07/15/2023, Expires: Start: 07-15-2023 End: 10-14-2023 Comprehensive metabolic 2000 panel - Serum or Plasma COMPREHENSIVE METABOLIC PANEL Lab Routine Hyperparathyroidism (HCC) Hypercalciuria Osteoporosis, unspecified osteoporosis type, unspecified pathological fracture presence Expected: 07/15/2023, Expires: 10/14/2023 [facility] Comment on above: Expected: 07/15/2023, Expires: Start: 07-15-2023 End: 10-14-2023 Parathyrin.intact [Mass/volume] in Serum or Plasma PTH INTACT Lab Routine Hyperparathyroidism (HCC) Hypercalciuria Osteoporosis, unspecified osteoporosis type, unspecified pathological fracture presence Expected: 07/15/2023, Expires: 10/14/2023 [facility] Comment on above: Expected: 07/15/2023, Expires: Start: 07-15-2023 End: 07-15-2023 Follow-up encounter 07/15/2023 1:40 PM EDT [facility] [address] [place] [address] Petty Shea MD [address] [place] [address] Follow-up to the results of my parathyroid scan Endocrinology Comment on above: Follow-up to the results of my parathyro id scan Start: 07-04-2023 End: 08-01-2024 DBT Breast - bilateral screening ERIK SCREENING W ANTONIO Radiology Routine Invasive carcinoma of breast (HCC) Expected: 07/04/2023 (Approximate), Expires: 08/01/2024 [facility] Work Phone: Comment on above: Expected: 07/04/2023 (Approximate), Expi res: 08/01/2024 Start: 06-22-2023 DIABETES SCREEN DIABETES SCREEN [facility] Start: 04-16-2023 ANNUAL PCP TEAM CHRONIC DISEASE VISIT ANNUAL PCP TEAM CHRONIC DISEASE VISIT [facility] Start: 04-16-2023 BP CONTROLLED (<130/80) BP CONTROLLED (<130/80) [facility] Start: 04-13-2023 ANNUAL PCP TEAM CHRONIC DISEASE VISIT ANNUAL PCP TEAM CHRONIC DISEASE VISIT [facility] Start: 03-24-2023 Behavioral Health Screening Behavioral Health Screening [facility] Start: 03-24-2023 Depression Assessment Depression Assessment [facility] Start: 03-06-2023 ANNUAL PCP TEAM CHRONIC DISEASE VISIT ANNUAL PCP TEAM CHRONIC DISEASE VISIT [facility] Start: 02-06-2023 End: 02-05-2024 DXA-AXIAL SKELETON DXA-AXIAL SKELETON Radiology Routine Encounter for screening for osteoporosis Expected: 02/06/2023 (Approximate), Expires: 02/05/2024 [facility] Work Phone: Comment on above: Expected: 02/06/2023 (Approximate), Expi res: 02/05/2024 Start: 01-07-2023 End: 03-09-2023 25-hydroxyvitamin D3 [Mass/volume] in Serum or Plasma VITAMIN D 25 HYDROXY Lab Routine Cancer of breast, intraductal, left Expected: 01/07/2023 (Approximate), Expires: 03/09/2023 [facility] Work Phone: Comment on above: Expected: 01/07/2023 (Approximate), Expi res: 03/09/2023 Start: 01-07-2023 End: 03-09-2023 Chronic hepatitis differentiation between hepatitis B and C virus panel - Serum or Plasma HEP REMOTE PANEL BL Lab Routine Cancer of breast, intraductal, left Expected: 01/07/2023 (Approximate), Expires: 03/09/2023 [facility] Work Phone: Comment on above: Expected: 01/07/2023 (Approximate), Expi res: 03/09/2023 Start: 11-22-2022 Influenza vaccination [facility] Start: 09-20-2022 Influenza vaccination INFLUENZA (#1) [facility] Comment on above: Postponed from 11/22/2021 (Declined at t his time) Start: 09-11-2022 Mammography MAMMOGRAM [facility] Start: 04-23-2022 End: 04-23-2023 PELVIC US WHI PELVIC US WHI Anc Imaging Routine Abnormal CT of the abdomen Adnexal mass Expected: 04/23/2022, Expires: 04/23/2023 [facility] Work Phone: Comment on above: Expected: 04/23/2022, Expires: 4 Start: 04-13-2022 End: 06-13-2022 C reactive protein [Mass/volume] in Serum or Plasma [facility] Work Phone: Comment on above: Expected: 04/13/2022, Expires: 3 Start: 04-13-2022 End: 06-13-2022 CBC W Auto Differential panel - Blood [facility] Work Phone: Comment on above: Expected: 04/13/2022, Expires: 3 Start: 04-13-2022 End: 06-13-2022 Comprehensive metabolic 2000 panel - Serum or Plasma [facility] Work Phone: Comment on above: Expected: 04/13/2022, Expires: 3 Start: 04-13-2022 End: 06-13-2022 Erythrocyte sedimentation rate [facility] Work Phone: Comment on above: Expected: 04/13/2022, Expires: 3 Start: 03-26-2022 ANNUAL PCP TEAM CHRONIC DISEASE VISIT ANNUAL PCP TEAM CHRONIC DISEASE VISIT [facility] Start: 03-24-2022 DEPRESSION ASSESSMENT DEPRESSION ASSESSMENT [facility] Start: 12-06-2021 BP CONTROLLED (<130/80) BP CONTROLLED (<130/80) [facility] Start: 11-22-2021 Influenza vaccination [facility]FLUENZA (Season Ended) [facility] Start: 2021 RSV Vaccine (1 - 1-dose 60+ series) RSV Vaccine (1 - 1-dose 60+ series) [facility] Start: 2021 RSV Vaccine (1 - Risk 60-74 years 1-dose series) RSV Vaccine (1 - Risk 60-74 years 1-dose series) [facility] Start: 09-07-2021 SHINGRIX VACCINE (2 of 2) SHINGRIX VACCINE (2 of 2) [facility] Start: 08-15-2021 Mammography MAMMOGRAM [facility] Start: 06-18-2021 Adult depression screening assessment DEPRESSION SCREENING [facility] Start: 06-17-2021 COVID-19 VACCINE (4 - Booster for Pfizer series) COVID-19 VACCINE (4 - Booster for Pfizer series) [facility] Start: 11-02-2011 Pneumococcal Vaccine: 50+ (1 of 1 - PCV) Pneumococcal Vaccine: 50+ (1 of 1 - PCV) [facility] Start: 11-02-2011 SHINGRIX VACCINE (1 of 2) SHINGRIX VACCINE (1 of 2) [facility] Start: 2006 COLOGUARD (FIT-DNA) COLOGUARD (FIT-DNA) [facility] Start: 2006 Colonoscopy COLONOSCOPY [facility] Start: 2006 COLORECTAL CANCER SCREENING COLORECTAL CANCER SCREENING [facility] Start: [address] COLONOGRAPHY [facility] Start: 2006 FECAL OCCULT BLOOD FECAL OCCULT BLOOD [facility] Start: 2006 Screening for malignant neoplasm of colon [facility] Start: 2006 SIGMOIDOSCOPY SIGMOIDOSCOPY [facility] Start: 11-02-1979 Anxiety Screening Anxiety Screening [facility] Start: 11-02-1979 Depression Screening Depression Screening [facility] 25-hydroxyvitamin D3 [Mass/volume] in Serum or Plasma VITAMIN D 25 HYDROXY Lab Routine Cancer of breast, intraductal, left 01/06/2023 10:52 AM EDT [facility] Work Phone: Bacteria identified in Urine by Culture URINE CULTURE Microbiology Routine LLQ abdominal pain Urinary urgency 04/23/2022 11:35 AM EST [facility] Work Phone: End: 06-04-2025 BD DXA TRABECULAR BONE SCORE (TBS) BD DXA TRABECULAR BONE SCORE (TBS) Radiology Routine Localized osteoporosis without current pathological fracture 1 Occurrences starting 05/05/2024 until 06/04/2025 [facility] Comment on above: 1 Occurrences starting 05/05/2024 until 06/04/2025 End: 11-03-2025 BD DXA TRABECULAR BONE SCORE (TBS) BD DXA TRABECULAR BONE SCORE (TBS) Radiology Routine Senile osteoporosis Vitamin D deficiency 1 Occurrences starting 10/04/2024 until 11/03/2025 [facility] Comment on above: 1 Occurrences starting 10/04/2024 until 11/03/2025 Bx/exc lymph node op en deep axillary node BX/REMV,LYMPH NODE,DEEP AXILL Procedures Routine Malignant neoplasm of central portion of left female breast, unspecified estrogen receptor status (HCC) Ordered: 01/06/2023 [facility] Work Phone: Comment on above: Ordered: 01/06/2023 CALCIUM, 24 HR URINE CALCIUM, 24 HR URINE Lab Routine Hyperparathyroidism (HCC) Hypercalciuria Osteoporosis, unspecified osteoporosis type, unspecified pathological fracture presence Ordered: 07/15/2023 [facility] Work Phone: Comment on above: Ordered: 07/15/2023 CALCIUM, 24 HR URINE CALCIUM, 24 HR URINE Lab Routine Senile osteoporosis Vitamin D deficiency Ordered: 10/04/2024 [facility] Comment on above: Ordered: 10/04/2024 Chronic hepatitis differentiation between hepatitis B and C virus panel - Serum or Plasma HEP REMOTE PANEL BL Lab Routine Cancer of breast, intraductal, left 01/06/2023 10:52 AM EDT [facility] Work Phone: CREATININE, 24 HOUR URINE CREATININE, 24 HOUR URINE Lab Routine Hyperparathyroidism (HCC) Hypercalciuria Osteoporosis, unspecified osteoporosis type, unspecified pathological fracture presence Ordered: 07/15/2023 [facility] Comment on above: Ordered: 07/15/2023 CREATININE, 24 HOUR URINE CREATININE, 24 HOUR URINE Lab Routine Senile osteoporosis Vitamin D deficiency Ordered: 10/04/2024 [facility] Comment on above: Ordered: 10/04/2024 End: 05-16-2023 Ct abdomen & pelvis w/contrast material CT ABD/PEL W IVCON Radiology STAT Left lower quadrant abdominal pain 1 Occurrences starting 04/16/2022 until 05/16/2023 [facility] Work Phone: Comment on above: 1 Occurrences starting 04/16/2022 until 05/16/2023 End: 04-26-2024 Ct abdomen & pelvis w/o contrst 1/> body re CT UROGRAM WO/W IVCON Radiology Routine Other specified disorders of kidney and ureter 1 Occurrences starting 03/28/2023 until 04/26/2024 [facility] Work Phone: Comment on above: 1 Occurrences starting 03/28/2023 until 04/26/2024 End: 06-19-2024 CT Kidney WO and W contrast IV CT KIDNEY WO/W IVCON Radiology Routine Renal lesion Other specified disorders of kidney and ureter 1 Occurrences starting 05/21/2023 until 06/19/2024 [facility] Work Phone: Comment on above: 1 Occurrences starting 05/21/2023 until 06/19/2024 End: 01-31-2025 CTA Heart and Coronary arteries W contrast IV CTA CORONARY W IVCON Radiology Routine Chest pain, unspecified type 1 Occurrences starting 01/02/2024 until 01/31/2025 [facility] Comment on above: 1 Occurrences starting 01/02/2024 until 01/31/2025 DBT Breast - bilater al screening ERIK SCREENING W ANTONIO Radiology Routine Invasive carcinoma of breast (HCC) 11/14/2023 1:09 PM EDT [facility] Work Phone: End: 06-04-2025 DXA Skeletal system.axial Views for bone density DXA-AXIAL SKELETON Radiology Routine Localized osteoporosis without current pathological fracture 1 Occurrences starting 05/05/2024 until 06/04/2025 [facility] Work Phone: Comment on above: 1 Occurrences starting 05/05/2024 until 06/04/2025 End: 11-03-2025 DXA Skeletal system.axial Views for bone density DXA-AXIAL SKELETON Radiology Routine Senile osteoporosis Vitamin D deficiency 1 Occurrences starting 10/04/2024 until 11/03/2025 [facility] Work Phone: Comment on above: 1 Occurrences starting 10/04/2024 until 11/03/2025 End: 01-07-2024 ECG COMPLETE ECG COMPLETE ECG Routine Malignant neoplasm of central portion of left female breast, unspecified estrogen receptor status (HCC) Pre-op testing 1 Occurrences starting 01/06/2023 until 01/07/2024 [facility] Work Phone: Comment on above: 1 Occurrences starting 01/06/2023 until 01/07/2024 ECG COMPLETE ECG COMPLETE ECG STAT Primary hypertension Shortness of breath Ordered: 01/02/2024 [facility] Work Phone: Comment on above: Ordered: 01/02/2024 End: 01-22-2025 ECG COMPLETE ECG COMPLETE ECG Routine Mixed hyperlipidemia 1 Occurrences starting 01/23/2024 until 01/22/2025 [facility] Work Phone: Comment on above: 1 Occurrences starting 01/23/2024 until 01/22/2025 End: 03-08-2025 ECG COMPLETE ECG COMPLETE ECG Routine Mixed hyperlipidemia Hypertension, unspecified type 1 Occurrences starting 03/08/2024 until 03/08/2025 [facility] Work Phone: Comment on above: 1 Occurrences starting 03/08/2024 until 03/08/2025 ECG COMPLETE ECG COMPLETE ECG Routine Mixed hyperlipidemia 06/02/2024 1:10 PM EDT [facility] Work Phone: End: 03-08-2025 Echocardiography ECHO Cardiology Routine Mixed hyperlipidemia Hypertension, unspecified type 1 Occurrences starting 03/08/2024 until 03/08/2025 [facility] Comment on above: 1 Occurrences starting 03/08/2024 until 03/08/2025 Inj radioactive trac er for id of sentinel node IDENTIFY SENTINEL NODE Procedures Routine Malignant neoplasm of central portion of left female breast, unspecified estrogen receptor status (HCC) Ordered: 01/06/2023 [facility] Work Phone: Comment on above: Ordered: 01/06/2023 End: 02-05-2024 Lymphatics & lymph nodes imaging NM LYMPH NODE IMAGING Radiology Routine Malignant neoplasm of central portion of left female breast, unspecified estrogen receptor status (HCC) 1 Occurrences starting 01/06/2023 until 02/05/2024 [facility] Work Phone: Comment on above: 1 Occurrences starting 01/06/2023 until 02/05/2024 End: 12-06-2023 ERIK DIAGNOSTIC BILATERAL ERIK DIAGNOSTIC BILATERAL Radiology Routine Mass overlapping multiple quadrants of left breast 1 Occurrences starting 11/06/2022 until 12/06/2023 [facility] Work Phone: Comment on above: 1 Occurrences starting 11/06/2022 until 12/06/2023 End: 12-18-2023 ERIK DIAGNOSTIC LEFT ERIK DIAGNOSTIC LEFT Radiology Routine Abnormal ultrasound of breast 1 Occurrences starting 11/18/2022 until 12/18/2023 [facility] Work Phone: Comment on above: 1 Occurrences starting 11/18/2022 until 12/18/2023 End: 11-15-2023 ERIK SCREENING W ANTONIO ERIK SCREENING W ANTONIO Radiology Routine Encounter for screening mammogram for breast cancer 1 Occurrences starting 10/16/2022 until 11/15/2023 [facility] Work Phone: Comment on above: 1 Occurrences starting 10/16/2022 until 11/15/2023 Mastectomy simple complete MASTECTOMY, SIMPLE, COMPLETE Procedures Routine Malignant neoplasm of central portion of left female breast, unspecified estrogen receptor status (HCC) Ordered: 01/06/2023 [facility] Work Phone: Comment on above: Ordered: 01/06/2023 End: 01-24-2024 MRI BREAST WO/W IVCON BILATERAL MRI BREAST WO/W IVCON BILATERAL Radiology Routine Invasive ductal carcinoma of breast, left (HCC) 1 Occurrences starting 12/25/2022 until 01/24/2024 [facility] Work Phone: Comment on above: 1 Occurrences starting 12/25/2022 until 01/24/2024 MRI BREAST WO/W IVCO N BILATERAL MRI BREAST WO/W IVCON BILATERAL Radiology Routine Invasive ductal carcinoma of breast, left (HCC) 01/03/2023 11:24 AM EDT [facility] Work Phone: Patient Education Diverticulitis Dc [facility] Work Phone: Patient referral [facility] Work Phone: End: 11-19-2023 Screening colonoscopy COLONOSCOPY SCREENING Endoscopy Routine Screening for colon cancer 1 Occurrences starting 11/18/2022 until 11/19/2023 [facility] Work Phone: Comment on above: 1 Occurrences starting 11/18/2022 until 11/19/2023 End: 06-19-2024 SPECT+CT Parathyroid gland NM PARATHYROID W SPECT/CT Radiology Routine Hypercalcemia Hyperparathyroidism (HCC) 1 Occurrences starting 05/21/2023 until 06/19/2024 [facility] Work Phone: Comment on above: 1 Occurrences starting 05/21/2023 until 06/19/2024 SURGICAL PATHOLOGY SURGICAL PATH OLOGY Lab Routine Abnormal ultrasound of breast 11/18/2022 12:34 PM EDT [facility] Work Phone: SURGICAL PATHOLOGY [facility] Work Phone: Comment on above: Release Upon Ordering for 1 Occurrences starting 12/20/2022, 1 completed End: 12-06-2023 US BREAST LTD LEFT US BREAST LTD LEFT Radiology Routine Mass overlapping multiple quadrants of left breast 1 Occurrences starting 11/06/2022 until 12/06/2023 [facility] Work Phone: Comment on above: 1 Occurrences starting 11/06/2022 until 12/06/2023 End: 05-23-2023 Us pelvic nonobstetric image dcmtn limited/f/u US FEMALE PELVIS TRANSABD LTD Radiology Routine Abnormal CT of the abdomen Adnexal mass 1 Occurrences starting 04/23/2022 until 05/23/2023 [facility] Work Phone: Comment on above: 1 Occurrences starting 04/23/2022 until 05/23/2023 End: 05-23-2023 Us transvaginal US FEMALE PELVIS TRANSVAG Radiology Routine Abnormal CT of the abdomen Adnexal mass 1 Occurrences starting 04/23/2022 until 05/23/2023 [facility] Work Phone: Comment on above: 1 Occurrences starting 04/23/2022 until 05/23/2023 XR Chest PA and Lateral XR CHEST 2V FRONTAL/LAT Radiology Routine Shortness of breath 01/12/2024 12:41 PM EDT [facility] Work Phone: [facility] Immunizations Immunization Date Immunization Notes Care Provider [facility] 11-23-2023 COVID-19 original vaccine, age 12+ yr, monovalent ([employer] - [place] [employer]) Kimberlee Lion MD Work Phone: [facility] 11-23-2023 COVID-19 vaccine, ag e 12+ yr ([employer] COMIRNATY) Bill Eugene MD Work Phone: [facility] 05-24-2022 zoster vaccine recombinant Bill Eugene MD Work Phone: [facility] 03-14-2022 Seasonal, quadrivalent, recombinant, injectable influenza vaccine, preservative free Bill Eugene MD Work Phone: [facility] 03-14-2022 influenza virus vaccine, unspecified formulation Procedure Main [facility] 07-13-2021 zoster vaccine recombinant Helder Egan MD Work Phone: [facility] Work Phone: 06-27-2020 Covid (Pfizer) [facility] 06-06-2020 Covid (Pfizer) [facility] 01-29-2020 influenza, injectabl e, quadrivalent, contains preservative Morelia Echols APRN.CNP Work Phone: [facility] Work Phone: 01-23-2020 influenza, seasonal, injectable Helder Egan MD Work Phone: [facility] Work Phone: 08-29-2016 tetanus toxoid, reduced diphtheria toxoid, and acellular pertussis vaccine, adsorbed Morelia Echols ENGINEERING SURVEYOR.[employer] Work Phone: [facility] Payers Date Payer Category Payer Self-pay [id number] 2024 Unknown [id number] 2021 Private Health Insurance [facility] CHOICE PLAN GENERIC [id number] 2021 Unknown [id number] 2018 Unknown [facility] PPO CONNECT GENERIC [id number] 2018-Present [phone] [address] [place] [address] PPO [id number] 2018 Unknown [id number] 2012 Unknown [id number] Unknown [id number] Social History Date Type Detail Facility Start: 06-02-2020 End: 03-06-2022 Tobacco smoking status NHIS Never smoked tobacco [facility] Start: 06-02-2020 End: 03-06-2022 Tobacco use and exposure Smokeless tobacco non-user [facility] Start: 04-13-2021 End: 05-05-2024 Alcohol intake Current drinker of alcohol (finding) [facility] Start: 06-18-2020 End: 03-03-2022 History SDOH Alcohol Frequency 2 [facility] Start: 06-18-2020 End: 03-03-2022 History SDOH Alcohol Std Drinks 1 [facility] Start: 06-02-2020 History SDOH Alcohol Comment rare [facility] Start: 06-18-2020 End: 03-03-2022 History SDOH Social Connections Phone 3 [facility] Start: 06-18-2020 History SDOH Physica l Activity DPW 0 [facility] Start: 06-18-2020 End: 03-03-2022 History SDOH Financial 5 [facility] Start: 06-18-2020 Education 17 [facility] Start: 1960 Sex Assigned At Female [facility] Start: 09-01-2021 End: 09-11-2021 Exposure to SARS-CoV-2 (event) Not sure [facility] Start: 03-03-2022 History SDOH Physica l Activity DPW 4 [facility] Start: 04-01-2022 End: 04-01-2022 Tobacco smoking status NHIS Unknown if ever smoked [facility] Start: 10-26-2019 Non-smoker [facility] Start: 03-03-2022 End: 07-26-2022 History of Social function [facility] Start: 03-03-2022 End: 07-26-2022 Social connection and isolation panel [facility] Do you belong to any clubs or organizations such as adventist groups, unions, fraternal or athletic groups, or school groups? Yes [facility] Are you now , , , , never or living with a partner? [facility] How often to you hav e a drink containing alcohol? Monthly or less [facility] How many standard dr inks containing alcohol do you have on a typical day? 1 or 2 [facility] How often do you hav e 6 or more drinks on 1 occasion? Never [facility] How hard is it for y ou to pay for the very basics like food, housing, medical care, and heating Not very hard [facility] Adult Depression Screening Assessment 0 [facility] Work Phone: Do you feel stress - tense, restless, nervous, or anxious, or unable to sleep at night because your mind is troubled all the time - these days [OSQ] Only a little [facility] (I/We) worried wheth er (my/our) food would run out before (I/we) got money to buy more. Never true [facility] In the past 12 month s, was there a time when you were not able to pay the mortgage or rent on time? No [facility] Start: 01-07-2020 Gender identity Identifies as female gender (finding) [facility] Start: 06-02-2024 End: 10-04-2024 Alcoholic beverage intake Ex-drinker (finding) [facility] robert Medical Equipment Procedure Code Equipment Code Equipment Origin al Text Equipment Identifier Dates [facility] Caseworker Reflector [id number] Sta rt: 12-20-2022 Goals Date Patient Goal Desired Activity /State Personal health goal Clinical Notes 07-03-2021 to 10-04-2024 Patient InstructionsRoss Sanders MD, PhD - 10/04/2024 3:20 PM EDTPatient Kelly Vargas LPN - 10/04/2024 1:43 PM EDTSBruna law APRN.DAVID - 10/04/2024 1:30 PM EDT Note Date & Type Note Facility 10-04-2024 Instructions Bill Eugene MD - 10/04/2024 3:45 PM EDT 1- Continue your Lisinopril 2.5 mg daily 2- Please schedule your CT chest 3- Continue follow up with Cardiology 4- Repeat some of your blood test 5- Follow up as below documented in this encounter [facility] 10-04-2024 History of Present illness Narrative Images from the original note were not included. Internal Medicine Outpatient Visit October 04, 2024 Preceptor: Dr. Tommy MD, PhD Chief complaint: Patient presents with: F/U 6 months HPI: 63 year old female patient with PMHx of hypertension, L breast cancer s/p mastectomy 01/13 (on anastrozole), recurrent diverticulitis and recent diagnosis of osteoporosis here today for follow up. Continues with chest discomfort, but was recently seen by Cardiology with unremarkable concerns. Had 1 episode of possible diverticulitis: fever + left side pain with local pain that improved after around 6 weeks with controlled diet. No antibiotics or other treatment were tried. And she improved for the L abdominal pain. Allergies: ALLERGIES Allergen Reactions Seasonal Allergies Other: See Comments Active Medications: alendronate (FOSAMAX) 70 mg tablet PLEASE SEE ATTACHED FOR DETAILED DIRECTIONS DHEA vaginal suppository 13 mg (CPD) Unwrap 1 suppository and insert every night in vagina as directed for the first 2 weeks, and then every other day for 2 months. Then twice a week. lisinopril 2.5 mg tablet Take 1 tablet by mouth once daily. cholecalciferol (VITAMIN D) 1,000 unit tab tablet Take 2 tablets by mouth once daily. anastrozole (ARIMIDEX) 1 mg tablet Take 1 tablet by mouth once daily. iv contrast (will be provided with radiology test) MRI Breast DALE Inject, intravenously, once for 1 dose. No IV access, insert saline lock prior to the beginning of sedation, infusion, injection of imaging exam. Discontinue saline lock post exam. If Pt has a central line or IVAD, may access for administration according to line specific nursing protocol. Once exam is complete flush line and de-access according to line specific nursing protocol in the MR contrast administration guidelines link (Patient not taking: Reported on 10/04/2024) Past Medical History: PAST MEDICAL HISTORY Diagnosis Date Breast cancer (HCC) 12/2022 s/p L mastectomy, no chemo, XRT; on anastrazole Cystocele with prolapse s/p hysterectomy Diverticulitis 03/15/2021 Dyslipidemia Essential hypertension situational- trying to get off medication Hypertension 2020 Mixed hyperlipidemia Diet Controlled - Vegan Multiple cysts of breast Spider veins of limb Uterine prolapse Vegan diet Social History: Social History Tobacco Use Smoking status: Never Smokeless tobacco: Never Vaping Use Vaping status: Never Used Substance Use Topics Alcohol use: Not Currently Comment: rare Drug use: Never Vitals: BP 128/86 Pulse 75 Physical Exam: Physical Exam Constitutional: Appearance: Normal appearance. Eyes: Extraocular Movements: Extraocular movements intact. Pupils: Pupils are equal, round, and reactive to light. Cardiovascular: Rate and Rhythm: Normal rate and regular rhythm. Pulmonary: Effort: Pulmonary effort is normal. Breath sounds: Normal breath sounds. Abdominal: General: Abdomen is flat. Bowel sounds are normal. Palpations: Abdomen is soft. Neurological: Mental Status: She is alert. Labs and Imaging Reviewed: 01/06/2024: TSH 1.73; Hg 13.5; normal electrolytes; LDL 133 Assessment/Plan: 63 year old female patient here today with plan as follows: ASSESSMENT/PLAN: 1. Mixed hyperlipidemia - ICD9: 272.2, ICD10: E78.2 (primary diagnosis) - Most recent lipid panel: Cholesterol, Total Date Value Ref Range Status 01/06/2024 209 (H) <200 mg/dL Final Comment: <200 mg/dL, Desirable 200-239 mg/dL, Borderline high >239 mg/dL, High HDL Cholesterol Date Value Ref Range Status 01/06/2024 59 >39 mg/dL Final Comment: 40-59 mg/dL, Acceptable >59 mg/dL, High: Negative risk factor for coronary heart disease <40 mg/dL, Low: Positive risk factor for coronary heart disease LDL Cholesterol, Calculated Date Value Ref Range Status 01/06/2024 133 (H) <100 mg/dL Final Comment: <100 mg/dL, Optimal 100-129 mg/dL, Near optimal/above optimal 130-159 mg/dL, Borderline high 160-189 mg/dL, High >189 mg/dL, Very high Secondary prevention optimal LDL Cholesterol levels are recommended to be < 70 mg/dL Triglyceride Date Value Ref Range Status 01/06/2024 84 <150 mg/dL Final Comment: <150 mg/dL, Normal 150-199 mg/dL, Borderline high 200-499 mg/dL, High >499 mg/dL, Very high Plan: - Continue off medications (althought elevated LDL, she is not interested in starting statin and now with normal coronary CTA, we have low concerns) - HEMOGLOBIN A1C - THYROID STIMULATING HORMONE 2. Hypertension, unspecified type - ICD9: 401.9, ICD10: I10 - Controlled - She brought a paper with recent measures, with SBP < 120 mmHg in most of measures - Home regiment: lisinopril 2.5 mg daily Plan: - Continue current medications - Recommend home blood pressure monitoring, to bring results to next visit - Encouraged sodium restriction, DASH or Mediterranean diet - Recommend regular aerobic exercise - COMPLETE BLOOD COUNT - COMPREHENSIVE METABOLIC PANEL - LIPID PANEL, FASTING - HEMOGLOBIN A1C 3. Diverticulosis - ICD9: 562.10, ICD10: K57.90 - Few episodes of diverticulosis (possible a recent 6 weeks ago) - Now is asymptomatic Plan: - Monitor - Diet recs 4. Uterovaginal prolapse - ICD9: 618.4, ICD10: N81.4 Plan: - Stick Welder follow up 5. Age-related osteoporosis without current pathological fracture - ICD9: 733.01, ICD10: M81.0 - continue tx with alendronate (Fosamax) - Reviewed the need for Calcium and Vitamin D supplements and weight bearing exercise as tolerated 6. Chest pain on breathing - ICD9: 786.52, ICD10: R07.1 Plan: - CT CHEST WO CHAUNCEYON Bill Eugene MD I personality checked the colonoscopy report (in paper) from 08/27/2022: no abnormalities; recommended to repeat in 10 years only. Follow Up Plan: Discussed with patient the importance of continuity of care. I encouraged patient to schedule next appointment within [facility] Time: 6 months with Bill Eugene MD. Patient prefers to be reached by [facility] Method: MyChart for results. Other appointments to be scheduled: See patient instructions Bill Eugene MD Internal Medicine Resident, PGY-2 [facility] Staff Physician Note: I have seen and examined the patient. Arrieta elements of the history and physical examination were confirmed by me at the bedside. MY ADDITIONS AND COMMENTS ARE IN CAPITAL LETTERS. I have discussed the findings with both the resident physician and the patient. I agree with the resident physician's note and plan as outlined above. Ross Sanders MD,PhD,FACP documented in this encounter [facility] 10-04-2024 Note HNO ID: [id number] Author: ROSS SANDERS MD, PhD Service: ? Author Type: Physician Type: Progress Notes Filed: 10/04/2024 19:31 Note Text: Internal Medicine Outpatient Visit October 04, 2024 Preceptor: Dr. Tommy MD, PhD Chief complaint: Patient presents with: F/U 6 months HPI: 63 year old female patient with PMHx of hypertension, L breast cancer s/p mastectomy 01/13 (on anastrozole), recurrent diverticulitis and recent diagnosis of osteoporosis here today for follow up. Continues with chest discomfort, but was recently seen by Cardiology with unremarkable concerns. Had 1 episode of possible diverticulitis: fever + left side pain with local pain that improved after around 6 weeks with controlled diet. No antibiotics or other treatment were tried. And she improved for the L abdominal pain. Allergies: ALLERGIES Allergen Reactions Seasonal Allergies Other: See Comments Active Medications: alendronate (FOSAMAX) 70 mg tablet PLEASE SEE ATTACHED FOR DETAILED DIRECTIONS DHEA vaginal suppository 13 mg (CPD) Unwrap 1 suppository and insert every night in vagina as directed for the first 2 weeks, and then every other day for 2 months. Then twice a week. lisinopril 2.5 mg tablet Take 1 tablet by mouth once daily. cholecalciferol (VITAMIN D) 1,000 unit tab tablet Take 2 tablets by mouth once daily. anastrozole (ARIMIDEX) 1 mg tablet Take 1 tablet by mouth once daily. iv contrast (will be provided with radiology test) MRI Breast DALE Inject, intravenously, once for 1 dose. No IV access, insert saline lock prior to the beginning of sedation, infusion, injection of imaging exam. Discontinue saline lock post exam. If Pt has a central line or IVAD, may access for administration according to line specific nursing protocol. Once exam is complete flush line and de-access according to line specific nursing protocol in the MR contrast administration guidelines link (Patient not taking: Reported on 10/04/2024) Past Medical History: PAST MEDICAL HISTORY Diagnosis Date Breast cancer (HCC) 12/2022 s/p L mastectomy, no chemo, XRT; on anastrazole Cystocele with prolapse s/p hysterectomy Diverticulitis 03/15/2021 Dyslipidemia Essential hypertension situational- trying to get off medication Hypertension 2020 Mixed hyperlipidemia Diet Controlled - Vegan Multiple cysts of breast Spider veins of limb Uterine prolapse Vegan diet Social History: Social History Tobacco Use Smoking status: Never Smokeless tobacco: Never Vaping Use Vaping status: Never Used Substance Use Topics Alcohol use: Not Currently Comment: rare Drug use: Never Vitals: BP 128/86 Pulse 75 Physical Exam: Physical Exam Constitutional: Appearance: Normal appearance. Eyes: Extraocular Movements: Extraocular movements intact. Pupils: Pupils are equal, round, and reactive to light. Cardiovascular: Rate and Rhythm: Normal rate and regular rhythm. Pulmonary: Effort: Pulmonary effort is normal. Breath sounds: Normal breath sounds. Abdominal: General: Abdomen is flat. Bowel sounds are normal. Palpations: Abdomen is soft. Neurological: Mental Status: She is alert. Labs and Imaging Reviewed: 01/06/2024: TSH 1.73; Hg 13.5; normal electrolytes; LDL 133 Assessment/Plan: 63 year old female patient here today with plan as follows: ASSESSMENT/PLAN: 1. Mixed hyperlipidemia - ICD9: 272.2, ICD10: E78.2 (primary diagnosis) - Most recent lipid panel: Cholesterol, Total Date Value Ref Range Status 01/06/2024 209 (H) <200 mg/dL Final Comment: <200 mg/dL, Desirable 200-239 mg/dL, Borderline high >239 mg/dL, High HDL Cholesterol Date Value Ref Range Status 01/06/2024 59 >39 mg/dL Final Comment: 40-59 mg/dL, Acceptable >59 mg/dL, High: Negative risk factor for coronary heart disease <40 mg/dL, Low: Positive risk factor for coronary heart disease LDL Cholesterol, Calculated Date Value Ref Range Status 01/06/2024 133 (H) <100 mg/dL Final Comment: <100 mg/dL, Optimal 100-129 mg/dL, Near optimal/above optimal 130-159 mg/dL, Borderline high 160-189 mg/dL, High >189 mg/dL, Very high Secondary prevention optimal LDL Cholesterol levels are recommended to be < 70 mg/dL Triglyceride Date Value Ref Range Status 01/06/2024 84 <150 mg/dL Final Comment: <150 mg/dL, Normal 150-199 mg/dL, Borderline high 200-499 mg/dL, High >499 mg/dL, Very high Plan: - Continue off medications (althought elevated LDL, she is not interested in starting statin and now with normal coronary CTA, we have low concerns) - HEMOGLOBIN A1C - THYROID STIMULATING HORMONE 2. Hypertension, unspecified type - ICD9: 401.9, ICD10: I10 - Controlled - She brought a paper with recent measures, with SBP < 120 mmHg in most of measures - Home regiment: lisinopril 2.5 mg daily Plan: - Continue current medications - Recommend home blood pressure monitoring, to bring results to next visi (more content not included)... [facility] 10-04-2024 Instructions Bruna Nathan APRN.HEAD OF [employer]ADEMIC [employer]CHNOLOGY - 10/04/2024 2:28 PM EDT Images from the original note were not included. We discussed your breast cancer history and follow-up care: - You have heterogeneously dense breast tissue, which is why breast MRIs are offered. However, given your age and history, I feel comfortable not proceeding with an MRI at this time if you prefer to avoid it. - I ordered a follow-up mammogram and ultrasound for your right side, scheduled for early November. This aligns with your 6-month follow-up schedule. - You will follow up with Dr. Lion in approximately 3 months, (around December 2024) to review the results and discuss any next steps. I will also review the imaging results. We discussed your current medications and bone health: - Continue taking anastrozole as prescribed. You will remain on this medication for at least 5 years, and we will reassess at that time based on your tolerance, bone density, and other factors. - You are currently on Fosamax for osteoporosis management. Continue to follow with endocrinology for your history of osteoporosis We discussed your shortness of breath with exertion: - This is likely related to deconditioning, as discussed with your baker pie. Continue your current exercise regimen as recommended. If your symptoms worsen or do not improve over time, please let us know. We discussed your general health: - You reported occasional headaches related to stress, but no increase in frequency or severity. No other concerning symptoms were noted during this visit. Next steps: - Complete your mammogram and ultrasound in early November. - Follow up with Dr. Lion in December to review imaging results and discuss your care plan. - Continue your current medications and exercise regimen as discussed. - Notify us if you experience any new or worsening symptoms. Please reach out through [employer] if you have any additional questions or concerns. Here is the information about genetic testing for your review: Hereditary Cancer Genetic Testing You have been offered hereditary cancer genetic testing. If you have not yet viewed the educational video about genetic testing, please click here or follow this QR code: Benefits of genetic testing: May provide an explanation for your cancer history. Determine if other treatment options or clinical trials are available to you. Identify if you are at an increased risk for another type of cancer. Determine if family members may be at risk of having a gene mutation. Billing process Most patients will have no [id number] costs. If you owe more than $100 after testing is complete, you'll receive a call from [employer]'s billing team discuss options including financial assistance based on your specific situation. If you have any questions regarding billing, please visit [employer]/billing or contact a senior education specialist directly at [phone] or [email or web address]. Results Once your blood is drawn, your results are expected in about 2-3 weeks. A [facility] genetic counselor will notify you of your results. You will receive a summary and copy on daysoft. If your results are NEGATIVE (normal, no harmful genetic mutation detected) We did not find a genetic cause for your cancer. Cancer screenings for you will be based on your personal and family history. Genetic testing may still be recommended for relatives who have had cancer. If your results are POSITIVE (genetic mutation detected) You will be scheduled for a consultation with a genetic counselor to review your results. Your provider will discuss if additional treatment options may be considered. You may be recommended to see additional medical specialists for cancer screening or surgery to reduce the risk of developing cancer. Genetic counseling and testing will likely be recommended for your relatives. If you have additional questions, please contact Medical Genetics at , option 5. Thank you for choosing [facility] for your care. documented in this encounter [facility] 10-04-2024 Note HNO ID: [id number] Author: KELLY HUGGINS LPN Service: ? Author Type: LICENSED NURSE Type: Progress Notes Filed: 10/04/2024 14:28 Note Text: Additional intake questions: Has the patient had fever, nausea, vomiting, diarrhea, constipation, fatigue for > 1 week? No Does the patient have a decreased appetite? No Does patient have any new or increased numbness or tingling of extremities? No Is patient interested in fertility information? NA Does patient need any prescription refills? No Does patient have an advanced directive in place? No, Patient referred to [facility] Electronically Signed By: Kelly Huggins LPN [facility] 10-04-2024 History of Present illness Narrative Additional intake questions: Has the patient had fever, nausea, vomiting, diarrhea, constipation, fatigue for > 1 week? No Does the patient have a decreased appetite? No Does patient have any new or increased numbness or tingling of extremities? No Is patient interested in fertility information? NA Does patient need any prescription refills? No Does patient have an advanced directive in place? No, Patient referred to [facility] Some elements of all sections of this documentation were copied from my previous note of November 27, 2023 and have been re-examined and updated where appropriate. All elements reflect the current assessment and medical decision making of today, October 04, 2024 ATTENDING PHYSICIAN: Dr. Kimberlee Lion IDENTIFICATION: Fang Killian is a 63 year old woman with a history of a [id number], ER positive (91%), WY positive (61-70%), Htz0sbs negative (IHC 2+), (oncotype dx recurrence score of 13), Infiltrating ductal carcinoma (grade 2) of the left breast, diagnosed in November 2022. REASON FOR VISIT / CHIEF COMPLAINT: routine 6 month follow up SURVIVORSHIP VISIT: March 28, 2023 CURRENT SYSTEMIC THERAPY FOR BREAST CANCER: ~ Anastrozole 1 mg daily PAST THERAPY FOR BREAST CANCER: ~ Left mastectomy with SLNBx (01/15/23; micrometastasis of 1 [address] and isolated tumor cells of 1 LN total of 5 LN examined; 1.5 cm) ~ Anastrozole (02/08/23-present) INTERVAL HISTORY: Pt presents today by herself. She reports that she is taking her Anastrozole 1 mg daily as prescribed with minimal difficulty. On 05/26/2022, patient underwent a right-sided mammogram and ultrasound, which revealed heterogeneously dense breast tissue. She has been on a regimen of alternating 6-month mammograms and ultrasounds due to ongoing concerns about a blocked duct and a sensation of tugging. Patient reports no nausea, vomiting, cough, or bone pain. She experiences occasional headaches related to stress but denies any increase in frequency or severity. She also denies any diplopia. She reports exertional dyspnea associated with post-exertional malaise, which resolves with rest. This has been ongoing and is being managed with cardiology through an exercise regimen initiated 6 weeks ago. She notes no improvement in symptoms but no worsening either. She continues to take anastrozole without issues and is on Fosamax for osteoporosis management. She is scheduled for a bone density scan in 3-4 months per endocrinology. She reports that she is doing regular breast exams and denies any concerns related to the same. She also confirms that she does have a primary care provider (Ross Sanders MD, PhD), which she verifies she is following up with regularly for her routine health maintenance. REVIEW OF SYSTEMS: The remainder of the review of systems is unremarkable. PERSONAL MEDICAL / SURGICAL HISTORY: Personal medical / surgical history reviewed SIGNIFICANT (CANCER) FAMILY MEDICAL HISTORY: Father- prostate cancer PHYSICAL EXAM: BP 118/76 Pulse 75 Temp 36.7 C (98 F) (Temporal) Resp 18 Wt 61.6 kg (135 lb 12.9 oz) SpO2 98% BMI 21.92 kg/m General appearance: well appearing, alert, in no acute distress Skin: Skin color, texture, turgor normal, no rashes or lesions Head: unremarkable Neck: Supple, no adenopathy Lungs: lungs clear to auscultation, no wheezing or rhonchi Heart: Negative, RRR Abdomen: Normal abdominal exam, Abdomen soft, non-tender. No masses, organomegaly Extremities:Extremities normal. No deformities or edema Breasts: Left breast exam reveals mastectomy without reconstruction, there is no axillary adenopathy, concerning skin changes or palpable lesions Right breast inspection negative, again there is no axillary adenopathy, concerning skin changes or palpable lesions LABS/IMAGING: No labs done at time of today's visit Right Antonio-mammogram/US (May 26, 2024: IMPRESSION: Dilated duct in the retroareolar region of the right breast is probably benign. A follow-up in 6 months is recommended. Bone density (02/07/2023): Osteoporosis; with the lowest t-score of -3.1 IMPRESSION: a history of a [id number], ER positive (91%), WY positive (61-70%), Dpq4hdx negative (IHC 2+), (oncotype dx recurrence score of 13), Infiltrating ductal carcinoma (grade 2) of the left breast, diagnosed in November 2022, s/p left mastectomy with SLNBx; current therapy: anastrozole, no evidence of disease recurrence at the time of today's exam. PLAN: After evaluation and review of the ongoing treatment plan, the following referral/recommendations have been made. (C50.919) Invasive carcinoma of breast (HCC) (primary encounter diagnosis) (Z87.898) History of abnormal mammogram Plan: [facility] RIGHT, US BREAST LTD RIGHT - Continue with active therapy in the adjuvant setting for breast cancer (with curative intent): Anastrozole 1 mg daily with intent of completing 5-10 years depending on BCI (January 2028-January 2033) patient is on fosamax per endocrinology for osteoporosis as she preferred not to be on zometa - Encouraged ongoing monthly breast self exams - Regular exercise (greater then 30 minutes most days of the week / 150 minutes weekly) - There were NO other physical concerns requiring further evaluation at this time - Mammogram next due: November 2024 (to follow up on dilated duct seen on screening mammogram in May 2024) Alternating with annual breast MRI for heterogeneously dense breast tissue on mammogram (at this time patient would like to defer breast MRIs due to claustrophobia. Will defer at this time and discuss with Dr. Lion in December.) - Bone density next due: January 2025 (managed by endocrinology) - Follow up with PCP for routine health maintenance - Follow up in [address] Lion back at that time She has been encouraged to call with any additional questions/concerns in the interim. Understanding verbalized. I spent a total of 35 minutes on the date of the service which included preparing to see the patient, [id number] patient care, completing clinical documentation, obtaining and/or reviewing separately obtained history, performing a medically appropriate examination, counseling and educating the patient/family/caregiver, and ordering medications, tests, or procedures. Bruna Nathan APRN.CNP documented in this encounter [facility] 10-04-2024 Note HNO ID: [id number] Author: BRUNA NATHAN APRN.CNP Service: ? Author Type: Nurse Practitioner Type: Progress Notes Filed: 10/04/2024 14:28 Note Text: Some elements of all sections of this documentation were copied from my previous note of November 27, 2023 and have been re-examined and updated where appropriate. All elements reflect the current assessment and medical decision making of today, October 04, 2024 ATTENDING PHYSICIAN: Dr. Kimberlee Lion IDENTIFICATION: Fang Killian is a 63 year old woman with a history of a [id number], ER positive (91%), WY positive (61-70%), Fbg5atv negative (IHC 2+), (oncotype dx recurrence score of 13), Infiltrating ductal carcinoma (grade 2) of the left breast, diagnosed in November 2022. REASON FOR VISIT / CHIEF COMPLAINT: routine 6 month follow up SURVIVORSHIP VISIT: March 28, 2023 CURRENT SYSTEMIC THERAPY FOR BREAST CANCER: ~ Anastrozole 1 mg daily PAST THERAPY FOR BREAST CANCER: ~ Left mastectomy with SLNBx (01/15/23; micrometastasis of 1 LN and isolated tumor cells of 1 LN total of 5 LN examined; 1.5 cm) ~ Anastrozole (02/08/23-present) INTERVAL HISTORY: Pt presents today by herself. She reports that she is taking her Anastrozole 1 mg daily as prescribed with minimal difficulty. On 05/26/2022, patient underwent a right-sided mammogram and ultrasound, which revealed heterogeneously dense breast tissue. She has been on a regimen of alternating 6-month mammograms and ultrasounds due to ongoing concerns about a blocked duct and a sensation of tugging. Patient reports no nausea, vomiting, cough, or bone pain. She experiences occasional headaches related to stress but denies any increase in frequency or severity. She also denies any diplopia. She reports exertional dyspnea associated with post-exertional malaise, which resolves with rest. This has been ongoing and is being managed with cardiology through an exercise regimen initiated 6 weeks ago. She notes no improvement in symptoms but no worsening either. She continues to take anastrozole without issues and is on Fosamax for osteoporosis management. She is scheduled for a bone density scan in 3-4 months per endocrinology. She reports that she is doing regular breast exams and denies any concerns related to the same. She also confirms that she does have a primary care provider (Ross Sanders MD, PhD), which she verifies she is following up with regularly for her routine health maintenance. REVIEW OF SYSTEMS: The remainder of the review of systems is unremarkable. PERSONAL MEDICAL / SURGICAL HISTORY: Personal medical / surgical history reviewed SIGNIFICANT (CANCER) FAMILY MEDICAL HISTORY: Father- prostate cancer PHYSICAL EXAM: BP 118/76 Pulse 75 Temp 36.7 ?C (98 ?F) (Temporal) Resp 18 Wt 61.6 kg (135 lb 12.9 oz) SpO2 98% BMI 21.92 kg/m? General appearance: well appearing, alert, in no acute distress Skin: Skin color, texture, turgor normal, no rashes or lesions Head: unremarkable Neck: Supple, no adenopathy Lungs: lungs clear to auscultation, no wheezing or rhonchi Heart: Negative, RRR Abdomen: Normal abdominal exam, Abdomen soft, non-tender. No masses, organomegaly Extremities:Extremities normal. No deformities or edema Breasts: Left breast exam reveals mastectomy without reconstruction, there is no axillary adenopathy, concerning skin changes or palpable lesions Right breast inspection negative, again there is no axillary adenopathy, concerning skin changes or palpable lesions LABS/IMAGING: No labs done at time of today's visit Right Antonio-mammogram/US (May 26, 2024: IMPRESSION: Dilated duct in the retroareolar region of the right breast is probably benign. A follow-up in 6 months is recommended. Bone density (02/07/2023): Osteoporosis; with the lowest t-score of -3.1 IMPRESSION: a history of a [id number], ER positive (91%), WY positive (61-70%), Mzp5skj negative (IHC 2+), (oncotype dx recurrence score of 13), Infiltrating ductal carcinoma (grade 2) of the left breast, diagnosed in November 2022, s/p left mastectomy with SLNBx; current therapy: anastrozole, no evidence of disease recurrence at the time of today's exam. PLAN: After evaluation and review of the ongoing treatment plan, the following referral/recommendations have been made. (C50.919) Invasive carcinoma of breast (HCC) (primary encounter diagnosis) (Z87.898) History of abnormal mammogram Plan: [facility], [employer] RIGHT - Continue with active therapy in the adjuvant setting for breast cancer (with curative intent): Anastrozole 1 mg daily with intent of completing 5-10 years depending on BCI (January 2028-January 2033) patient is on fosamax per endocrinology for osteoporosis as she preferred not to be on zometa - Encouraged ongoing monthly breast self exams - Regular exercise (greater then 30 minutes most days of the week / 150 minutes wee (more content not included)... [facility] 10-04-2024 Instructions Petty Shea MD - 10/04/2024 9:32 AM EDT COLLECTING URINE FOR 24 HOURS: 1. Best done the morning of one day to the morning of the next day ( two consecutive mornings). 2. Imperative that you arise from bed at the exact same time on Day 1 and Day 2. 3. When you arise on Day 1 you will have to urinate. This goes into the toilet and is flushed away. 4. Every time from then on for the remainder of Day 1 and at night Day 1 to Day 2, every drop of urine that you pass must go into the container that we will provide for you. 5. When you arise on Day 2 you will also have to urinate. This goes into the container and completes the urine collection. 6. The container should be kept refrigerated until it is turned in to the laboratory. 7. Bring the completed urine collection container to the laboratory as soon as possible. BONE MINERAL DENSITY PATIENT INSTRUCTIONS ======= Bone mineral density testing measures the amount of calcium in certain parts of your bones. This information determines how strong your bones are. The test is used to detect osteoporosis, a disease in which the bone's mineral content and density are low, increasing a person's risk of fractures. The lumbar spine (lower back) and the hip are the skeletal sites usually examined. For the test, remember that: 1. You cannot take this test if you are . 2. Eat a normal diet on the day of the test. 3. Take your medications as you normally would. 4. DO NOT take calcium supplements (such as Tums) for 24 hours before the test. 5. On the day of the test, leave valuables (jewelry or credit cards) at home. 6. The test should be performed prior to oral, rectal or IV contrast studies, or at least 7 days after any of these studies. For the test, you may be asked to wear a hospital gown. You will lie on your back, on a padded table, in a comfortable position. Generally, you can resume your usual activities immediately. documented in this encounter [facility] 10-04-2024 Note HNO ID: [id number] Author: PETTY SHEA MD Service: ? Author Type: Physician Type: Progress Notes Filed: 10/04/2024 10:02 Note Text: Endocrinology Virtual Visit This is a virtual visit using [email or web address] Video Visit. It required patient-provider interaction for the medical decision making as documented below. I have communicated my name and active licensure. The patient's identity and physical location were verified at the time of this visit. Either the patient or their legal contact representative has been informed of the risks and benefits of -- and alternatives to -- treatment through a remote evaluation and consents to proceed with the evaluation remotely. HPI: Fang is a 63 year old female with a hx of liver and kidney cysts and recently dx with breast cancer s/p mastectomy and was found to have hypercalcemia she si also on anastrazole and , and was started on vitamin d 50,000 units weekly for vitamin D of 24 by nephrology, no recent fx, no kidney stones, recent CT kidney cysts seeing urology. Her recent DXA scan showed osteoporosis in spine T score -3.1 is going to discuss with oncology for bisphosphonate and we reviewed the risk of ONJ and AFF she will check with her dentist as well, we discussed that due to being on anastrozle and low T score in spine , even if we do surgery for parathyroid issues, we still need a short term tx with bisphosphatase. She will check with her oncology team. reviewed labs recent PTH and vitamin D and calcium are normal, however 24 hr urine calcium was elevated off high dose weekly vitamin D recheck labs, she wants to try fosamax for now rather than reclast or prolia, her dentist has oked it as well agreed with risk of ONJ and AFF. On fosamax , no acute issues, check DXA scan and calcium , vitamin D and 24 hr urine calcium.Parathyroid scan was negative Prior biochemical work-up: Labs Latest Reference Range AND Units 01/23/23 12:10 03/28/23 12:02 Sodium 136 - 144 mmol/L 144 Potassium 3.7 - 5.1 mmol/L 4.8 Chloride 97 - 105 mmol/L 106 (H) CO2 22 - 30 mmol/L 26 BUN 7 - 21 mg/dL 14 Creatinine 0.58 - 0.96 mg/dL 0.67 Glucose 74 - 99 mg/dL 98 Calcium 8.5 - 10.2 mg/dL 10.3 (H) Ionized Calcium 1.08 - 1.30 mmol/L 1.34 (H) Normalized Calcium 1.08 - 1.30 mmol/L 1.29 Phosphorus 2.7 - 4.8 mg/dL 4.1 Albumin 3.9 - 4.9 g/dL 4.9 Anion Gap 9 - 18 mmol/L 12 eGFR >=60 mL/min/1.73m? 100 Cholesterol, Total <200 mg/dL 289 (H) Triglyceride <150 mg/dL 65 Fasting Time hrs 12 HDL Cholesterol >39 mg/dL 101 LDL Cholesterol <100 mg/dL 175 (H) VLDL Cholesterol <30 mg/dL 13 TC:HDL Ratio <5.10 2.86 LDL:HDL Ratio <2.54 1.73 Non HDL Cholesterol <130 mg/dL 188 (H) Vit D1,25 Dihydroxy 19.9 - 79.3 pg/mL 64.4 Vitamin D 25 Hydroxy 31.0 - 80.0 ng/mL 24.9 (L) Creatinine, Ur Random (UCRR) 20.0 - 300.0 mg/dL 45.3 Protein, Urine Random 0 - 20 mg/dL 5 Hemoglobin A1C 4.3 - 5.6 % 5.3 Estimated Average Glucose mg/dL 105 TSH 0.270 - 4.200 mIU/L 1.020 PTH, Intact 15 - 65 pg/mL 58 (H): Data is abnormally high (L): Data is abnormally low Prior Imaging: IMPRESSION: Numerous liver cysts. A few subcentimeter low-attenuation lesions in the kidneys with attenuation not compatible with simple cysts. Close follow-up is suggested. Colonic diverticulosis without evidence of diverticulitis. Irregular soft tissue density along the left pelvis, likely from left ovary or adnexa. Clinical correlation is suggested. THE LOWEST T-SCORE IS -3.1 IN THE SPINE 1) DIAGNOSIS (based on BMD alone): OSTEOPOROSIS Caution: Medical conditions other than osteoporosis may cause low bone density, such as osteomalacia or renal osteodystrophy. Clinical correlation is necessary. 2) FRACTURE RISK (Based on TBS adjusted FRAX): 10-year absolute fracture risk: - major osteoporotic fracture = 9.9 % - hip fracture = 1.5 % - A diagnosis of Osteoporosis, a 10 year probability of hip fracture greater than or equal to 3% or a 10 year probability of any major osteoporosis-related fracture greater than or equal to 20% should be considered for treatment. - DXA scanner generated FRAX calculations may slightly differ from online FRAX calculations due to differences in software versions. - All recommendations and calculations are to be considered as guidelines and should not replace sound clinical judgement - Caution: Fracture risk may be increased independent of BMD in patients with corticosteroid use, age greater than 65 years, or a history of prior fragility fracture. RECOMMENDATIONS: Follow-up in 2 years or as clinically indicated. Patients that are taking corticosteroids, are transplant recipients or have hyperparathyroidism should have annual follow-up. Follow-up scans should always be done on the same machine for accurate comparison. FOR MORE INFORMATION ABOUT DIAGNOSIS AND TREATMENT: [facility] (more content not included)... [facility] 10-04-2024 History of Present illness Narrative Images from the original note were not included. Endocrinology Virtual Visit This is a virtual visit using [email or web address] Video Visit. It required patient-provider interaction for the medical decision making as documented below. I have communicated my name and active licensure. The patient's identity and physical location were verified at the time of this visit. Either the patient or their legal contact representative has been informed of the risks and benefits of -- and alternatives to -- treatment through a remote evaluation and consents to proceed with the evaluation remotely. HPI: Fang is a 63 year old female with a hx of liver and kidney cysts and recently dx with breast cancer s/p mastectomy and was found to have hypercalcemia she si also on anastrazole and , and was started on vitamin d 50,000 units weekly for vitamin D of 24 by nephrology, no recent fx, no kidney stones, recent CT kidney cysts seeing urology. Her recent DXA scan showed osteoporosis in spine T score -3.1 is going to discuss with oncology for bisphosphonate and we reviewed the risk of ONJ and AFF she will check with her dentist as well, we discussed that due to being on anastrozle and low T score in spine , even if we do surgery for parathyroid issues, we still need a short term tx with bisphosphatase. She will check with her oncology team. reviewed labs recent PTH and vitamin D and calcium are normal, however 24 hr urine calcium was elevated off high dose weekly vitamin D recheck labs, she wants to try fosamax for now rather than reclast or prolia, her dentist has oked it as well agreed with risk of ONJ and AFF. On fosamax , no acute issues, check DXA scan and calcium , vitamin D and 24 hr urine calcium.\Parathyroid scan was negative Prior biochemical work-up: Labs Latest Reference Range & Units 01/23/23 12:10 03/28/23 12:02 Sodium 136 - 144 mmol/L 144 Potassium 3.7 - 5.1 mmol/L 4.8 Chloride 97 - 105 mmol/L 106 (H) CO2 22 - 30 mmol/L 26 BUN 7 - 21 mg/dL 14 Creatinine 0.58 - 0.96 mg/dL 0.67 Glucose 74 - 99 mg/dL 98 Calcium 8.5 - 10.2 mg/dL 10.3 (H) Ionized Calcium 1.08 - 1.30 mmol/L 1.34 (H) Normalized Calcium 1.08 - 1.30 mmol/L 1.29 Phosphorus 2.7 - 4.8 mg/dL 4.1 Albumin 3.9 - 4.9 g/dL 4.9 Anion Gap 9 - 18 mmol/L 12 eGFR >=60 mL/min/1.73m 100 Cholesterol, Total <200 mg/dL 289 (H) Triglyceride <150 mg/dL 65 Fasting Time hrs 12 HDL Cholesterol >39 mg/dL 101 LDL Cholesterol <100 mg/dL 175 (H) VLDL Cholesterol <30 mg/dL 13 TC:HDL Ratio <5.10 2.86 LDL:HDL Ratio <2.54 1.73 Non HDL Cholesterol <130 mg/dL 188 (H) Vit D1,25 Dihydroxy 19.9 - 79.3 pg/mL 64.4 Vitamin D 25 Hydroxy 31.0 - 80.0 ng/mL 24.9 (L) Creatinine, Ur Random (UCRR) 20.0 - 300.0 mg/dL 45.3 Protein, Urine Random 0 - 20 mg/dL 5 Hemoglobin A1C 4.3 - 5.6 % 5.3 Estimated Average Glucose mg/dL 105 TSH 0.270 - 4.200 mIU/L 1.020 PTH, Intact 15 - 65 pg/mL 58 (H): Data is abnormally high (L): Data is abnormally low Prior Imaging: IMPRESSION: Numerous liver cysts. A few subcentimeter low-attenuation lesions in the kidneys with attenuation not compatible with simple cysts. Close follow-up is suggested. Colonic diverticulosis without evidence of diverticulitis. Irregular soft tissue density along the left pelvis, likely from left ovary or adnexa. Clinical correlation is suggested. THE LOWEST T-SCORE IS -3.1 IN THE SPINE 1) DIAGNOSIS (based on BMD alone): OSTEOPOROSIS Caution: Medical conditions other than osteoporosis may cause low bone density, such as osteomalacia or renal osteodystrophy. Clinical correlation is necessary. 2) FRACTURE RISK (Based on TBS adjusted FRAX): 10-year absolute fracture risk: - major osteoporotic fracture = 9.9 % - hip fracture = 1.5 % - A diagnosis of Osteoporosis, a 10 year probability of hip fracture greater than or equal to 3% or a 10 year probability of any major osteoporosis-related fracture greater than or equal to 20% should be considered for treatment. - DXA scanner generated FRAX calculations may slightly differ from online FRAX calculations due to differences in software versions. - All recommendations and calculations are to be considered as guidelines and should not replace sound clinical judgement - Caution: Fracture risk may be increased independent of BMD in patients with corticosteroid use, age greater than 65 years, or a history of prior fragility fracture. RECOMMENDATIONS: Follow-up in 2 years or as clinically indicated. Patients that are taking corticosteroids, are transplant recipients or have hyperparathyroidism should have annual follow-up. Follow-up scans should always be done on the same machine for accurate comparison. FOR MORE INFORMATION ABOUT DIAGNOSIS AND TREATMENT: [facility] Osteoporosis and Metabolic Bone Disease:? www.ccf.org/arthritis/osteo National Osteoporosis Foundation:? www.nof.org International Society of Clinical Densitometry www.iscd.org Shirt Ironer: [id number] Transcribe Date/Time: Feb 07 2023 2:31P Dictated by : HIREN BURTON MD This examination was interpreted and the report reviewed and electronically signed by: HIREN BURTON MD on Feb 07 2023 4:42PM EST Results-Findings * * *Final Report* * * DATE OF EXAM: Feb 07 2023 1:34PM [facility] [place] 0804 - BD DXA - AXIAL SKELETON / PROCEDURE REASON: Encounter for screening for osteoporosis * * * * Physician Interpretation * * * * EXAMINATION: DXA BONE DENSITOMETRY BD DXA - AXIAL SKELETON PATIENT DEMOGRAPHICS: Age: 62 years, Gender: Female SCANNER INFORMATION: DXA Model: A21 [employer]) A [id number] Date Scanned: 02/07/2023 1:34 PM CLINICAL HISTORY: SCREENING Encounter for screening for osteoporosis . RISK FACTORS FOR OSTEOPOROSIS AND ASSOCIATED FRACTURES REPORTED BY THIS PATIENT: Please refer to Bone Health Questionnaire in the EMR CURRENT THERAPY: Please refer to Bone Health Questionnaire in the EMR TECHNICAL LIMITATIONS: Degenerative disease of the spine RESULTS: Lumbar spine (L1, L2, L3, L4): 0.705 g/cm2, T-score -3.1, Z-score -1.6 Right Femoral Neck: 0.608 g/cm2, T-score -2.2, Z-score -0.8 Right Total Hip: 0.722 g/cm2, T-score -1.8, Z-score -0.8 Family History Family History Problem Relation Age of Onset No Known Problems Mother Arthritis Father Heart Attack Father 65 Prostate Cancer Father No Known Problems Sister No Known Problems Maternal Grandmother No Known Problems Maternal Grandfather No Known Problems Paternal Grandmother No Known Problems Paternal Grandfather other (Pulmonary Embolus) Daughter No Known Problems Daughter No Known Problems Son No Known Problems Son PAST SURGICAL HISTORY PAST SURGICAL HISTORY Procedure Laterality Date COLONOSCOPY 05/2022 Dr. Chirinos, repeat in 10 years per patient COLONOSCOPY GEN ANES 2012 Dr. Chirinos-reportedly negative/normal. TOTAL ABD HYSTERECTOMY+BLAD REPR 11/02/2019 for tx of uterine and bladder prolapse. SOCIAL HISTORY Lives with . 2 children moved out of the home now. ROS Review of Systems: Thyroid Pain: no Mass Effect: None Energy: stable and OK Moods: fair Sleep: Normal sleep pattern Temp. Intolerance: None Cardiac: NOT SIGNIFICANT CV: No history of chest pain, palpitation, orthopnea, cyanosis, pedal edema Gyne: Normal Resp: No cough, hemoptysis, asthma, recent chest infection, wheezing GI: No blood in stool, pain with BM, tarry stool, persistent diarrhea or constipation Weight: remained stable Eyes: No Memory: Good Diaphoresis: Not significant Skin: Negative M/S: negative Neuro: negative Physical Exam: BP 147/84 Pulse 70 Wt 61.5 kg (135 lb 9.3 oz) BMI 21.88 kg/m Alert, oriented, no acute distress TYE, EOMI Neck no palpable thyroid enlargement or lymphadenopathy. Oropharynx looks healthy. No buccal pigmentation. Heart sounds are normal, with no extra sounds or murmurs, no jugular venous distention. Lung oneill are clear to auscultation bilaterally. Abdomen is soft and nontender with no palpable masses or organomegaly, and bowel sounds are normal. Joints are flexible with no joint tenderness or limitation of movement or swelling. No clubbing or cyanosis or edema. Muscle strength is normal, tendon reflexes are normal, sensation is normal. Cranial nerves are normal. Skin is normal with no evidence of rash or bruising. CURRENT MEDICATIONS Current Outpatient Medications Medication Sig Dispense Refill cholecalciferol, Vitamin D3, (VITAMIN D3) 1,250 mcg (50,000 unit) cap capsule Take 1 capsule by mouth one time a week. 12 capsule 0 anastrozole (ARIMIDEX) 1 mg tablet Take 1 tablet by mouth once daily. 90 tablet 3 DHEA vaginal suppository 4 mg (CPD) Unwrap and insert 1 suppository vaginally every other night. 45 Suppository 3 lisinopril 2.5 mg tablet Take 1 tablet by mouth once daily. 30 tablet 2 No current facility-administered medications for this visit. Assessment & Plan Fang is a 63 year old female with a hx of recently dx breast CA s/p mastectomy and anastrazole, Osteoporosis and hypercalcemia is referred by Dr Lino for further evaluation Hypercalcemia with inappropriately normal PTH and vitamin D deficiency vitamin D decreased calcium stopped recheck 24 hr urine calcium and labs, sestamibi scan was negative 2- Osteoporosis can be multifactorial,on fosamax oncology team and dentist are ok, ordered dexa scan documented in this encounter [facility] 07-23-2024 Instructions Alberto Benitez, Service Coordinator - 07/23/2024 3:13 PM EDT Images from the original note were not included. AEROBIC-BASED EXERCISE TRAINING PLAN FOR SYMPTOM MANAGEMENT: Initiate the self-supervised aerobic-based exercise prescription for aerobic conditioning and symptom management as outlined below: *Participation in structured aerobic-based exercise as recommended below constitutes a single aspect of your symptom management plan and should not be viewed as the only factor responsible for managing the severity of your symptoms. *Structured, consistent, and specific aerobic-based exercise is therapeutic and can provide you with a dose-benefit response. This means the more consistent you can be with performing intentional aerobic-based exercise at a safe and appropriate intensity, the more likely you are to see the benefits of aerobic-based exercise training for managing your symptoms. *Do not participate in maximal intensity exercise and/or other forms of severe/heavy intensity physical exertion for your symptom management plan. *Participation in high intensity interval training (HIIT) is not recommended when aiming to exercise train for managing symptom severity. *Participating in maximal/high/severe/heavy intensity physical exertion regardless of whether it occurs in a gym or elsewhere will commonly result in feeling the need to rest/recover for up to 3-4 days before feeling energy and physical endurance levels return to a higher baseline. *Consistently drink water throughout the day in small sips/quantities. Not drinking enough water throughout the day will increase the likelihood your heart rate will rise to levels higher than typical while at rest as well as when changing body positions from sitting to standing. *Do not gulp or chug water. Aerobic Exercise Training: -Choose a time of day (whatever your preference) where you will be able to consistently exercise on a regular basis. Controlling this factor (along with the others) will help you better understand how your body responds to exercise and other types of physical exertion. Subjective exercise intensity scale Rating of perceived exertion (RPE) scale (6-20): *When guiding exercise training intensities, inclusively consider *HR zones (primary guide)*, workload zones, symptoms, and RPE zones. *If you need to make adjustments to the recommended exercise machine settings (noted below) in order to achieve your target HR zone this is perfectly ok. *Commercial devices that can be used to monitor HR while exercising include for example: *Smart Watch (cloud.IQ, Sqeeqee, [employer], Firmafon, [employer], etc) *Finger pulse oximeter - wear on middle finger. Make sure no nail latvian is present. Do not hoop punch and coiler operator helper handle bar tightly *Commercial heart rate monitors used during exercise training are not medical devices and the information acquired from these devices should not be used to make medical diagnostic decisions. *Do NOT monitor your HR while performing activities of daily living, recreational sports, hiking, or other types of quick physical movements throughout your day. *If any exercise occurs outdoors, it will be more difficult to maintain consistent control of your HR response to exercise due to numerous environmental and terrain factors. *You can also expect to expend more energy when performing your exercise outdoors due the influences of numerous environmental and terrain factors. Therefore, take a more conservative approach when performing your exercise training outdoors. *Slowly drink 8-12 ounces of water or sports drink within the 30 minutes before exercise (for example, low calorie sugar-free options are Powerade zero, G2, propel fitness water, Vitamin Water, Nuun electrolyte tablets, Liquid IV, etc.). *If you begin exercise without having taken in enough fluid throughout the day, it will be easier for your body temperature to rise quickly and lead to the feeling of being overheated. *Continue to drink fluid throughout exercise and the recovery period as needed. *DO NOT drink caffeine within 3 hours prior to exercise. *Warm-up exercise period immediately prior to performing sessions*: DO NOT SKIP THE WARM UP EVER. The warm up should be performed on the exact piece of equipment you plan on performing your exercise training that day. Do not perform multiple warm up periods on different pieces of equipment. *Skipping the warm up will increase the likelihood you will experience an increase in symptoms during exercise. -Duration: at least 6-8 min (take longer time to warm-up as needed). -Modality options: -Stationary Upright Bicycle - Wheel resistance: none or the lowest available setting *Pedal rate: 35-40 revolutions per minute (rpm) or lower. If your cycle does not provide a display of pedal rate consider using a Metronome to help guide the pace and frequency of your pedal rate. If you use a smart phone there are free Metronome apps for download. -Take as much time as you need after to allow your body to get settled after changing body positions from standing to sitting. -Intensity: heart rate (HR) = 80-85 bpm and Rating of perceived exertion (RPE)= 6-8 (use the above 6-20 scale). *Aerobic Exercise Sessions by Week and Modality*: TRAINING BLOCK #1: Week 1-8 or longer (this is the minimum number of weeks. If necessary, make this training block as long as you need): Mode: Stationary Upright Bicycle (NO high intensity interval training): -Perform the active warm-up period before participating in exercise at the heart rate (HR) range described below. -Heart Rate (HR) = as tolerated, up to 100-105 bpm (PRIMARY GUIDE) -Pedal rate = 55-60 revolutions per minute (rpm). If your cycle does not provide a display of pedal rate consider using a Metronome to help guide the pace and frequency of your pedal rate. If you use a smart phone there are free Metronome apps for download. -Looney = ~15-20 . (Make minor and gradual adjustments to wheel resistance settings in order to achieve target HR zone, as needed. The Looney zone is less important than the recommended HR zone. Prioritize achieving the target HR zone.) -Rating of perceived exertion (RPE) = 10-12 (refer to above 6-20 scale) Frequency per week: -At least 3 days (non-consecutive days is preferred; or up to 4 non-consecutive days, as tolerated) -Choose a time of day (whatever your preference) where you will be able to consistently exercise on a regular basis. Controlling this factor (along with the others) will help you better understand how your body responds to exercise and other types of physical exertion. Weeks 1-4: Total minutes per day (not including warm-up and cool-down time): -as tolerated, up to 15 min (do not exceed time even if you feel the urge to do so) *As tolerated, your exercise can be performed as consecutive minutes. If needed, it is ok if you stop exercise early and begin the active cool-down period. Weeks 5-8: Total minutes per day (not including warm-up and cool-down time): -as tolerated, up to 20 min (do not exceed time even if you feel the urge to do so) *As tolerated, your exercise can be performed as consecutive minutes. If needed, it is ok if you stop exercise early and begin the active cool-down period. -Only progress to the next training block of your program if you are able to consistently perform your exercise without experiencing any worsening of your symptoms. -If for any reason you have to miss multiple training days in succession (for example, more than 4) in a given week(s), upon resuming your exercise training it would be reasonable to briefly dial back the HR zone intensity and session duration in order to more appropriately re-introduce physical stress to your body. *For example, for 1 week, decrease the HR zone you had been previously working at prior to the time away by at least 5 bpm from both the lower and upper end of the zone. Also decrease the duration of your training sessions by at least 5 min or more. TRAINING BLOCK #2: Week 9-16 or longer (this is the minimum number of weeks. If necessary, make this training block as long as you need): Mode: Stationary Upright Bicycle (NO high intensity interval training): -Perform the active warm-up period before participating in exercise at the heart rate (HR) range described below. -Heart Rate (HR) = as tolerated, up to 105-110 bpm (PRIMARY GUIDE) -Pedal rate = 55-60 revolutions per minute (rpm). If your cycle does not provide a display of pedal rate consider using a Metronome to help guide the pace and frequency of your pedal rate. If you use a smart phone there are free Metronome apps for download. -Looney = ~15-25 . (Make minor and gradual adjustments to wheel resistance settings in order to achieve target HR zone, as needed. The Looney zone is less important than the recommended HR zone. Prioritize achieving the target HR zone.) -Rating of perceived exertion (RPE) = 11-12 (refer to above 6-20 scale) Frequency per week: -At least 3 days (non-consecutive days is preferred; or up to 5 non-consecutive days, as tolerated) -Choose a time of day (whatever your preference) where you will be able to consistently exercise on a regular basis. Controlling this factor (along with the others) will help you better understand how your body responds to exercise and other types of physical exertion. Weeks 9-12: Total minutes per day (not including warm-up and cool-down time): -as tolerated, up to 20 min (do not exceed time even if you feel the urge to do so) *As tolerated, your exercise can be performed as consecutive minutes. If needed, it is ok if you stop exercise early and begin the active cool-down period. Weeks 13-16: Total minutes per day (not including warm-up and cool-down time): -as tolerated, up to 25 min (do not exceed time even if you feel the urge to do so) *As tolerated, your exercise can be performed as consecutive minutes. If needed, it is ok if you stop exercise early and begin the active cool-down period. -Only progress to the next training block of your program if you are able to consistently perform your exercise without experiencing any worsening of your symptoms. -If for any reason you have to miss multiple training days in succession (for example, more than 4) in a given week(s), upon resuming your exercise training it would be reasonable to briefly dial back the HR zone intensity and session duration in order to more appropriately re-introduce physical stress to your body. *For example, for 1 week, decrease the HR zone you had been previously working at prior to the time away by at least 5 bpm from both the lower and upper end of the zone. Also decrease the duration of your training sessions by at least 5 min or more. TRAINING BLOCK #3: Week 17-24 or longer (this is the minimum number of weeks. If necessary, make this training block as long as you need): Mode: Stationary Upright Bicycle (NO high intensity interval training): -Perform the active warm-up period before participating in exercise at the heart rate (HR) range described below. -Heart Rate (HR) = as tolerated, up to 110-115 bpm (PRIMARY GUIDE) -Pedal rate = 55-60 revolutions per minute (rpm). If your cycle does not provide a display of pedal rate consider using a Metronome to help guide the pace and frequency of your pedal rate. If you use a smart phone there are free Metronome apps for download. -Looney = ~20-30 . (Make minor and gradual adjustments to wheel resistance settings in order to achieve target HR zone, as needed. The Looney zone is less important than the recommended HR zone. Prioritize achieving the target HR zone.) -Rating of perceived exertion (RPE) = 11-12 (refer to above 6-20 scale) Frequency per week: -At least 3 days (non-consecutive days is preferred; or up to 5 non-consecutive days, as tolerated) -Choose a time of day (whatever your preference) where you will be able to consistently exercise on a regular basis. Controlling this factor (along with the others) will help you better understand how your body responds to exercise and other types of physical exertion. Weeks 17-20: Total minutes per day (not including warm-up and cool-down time): -as tolerated, up to 25 min (do not exceed time even if you feel the urge to do so) *As tolerated, your exercise can be performed as consecutive minutes. If needed, it is ok if you stop exercise early and begin the active cool-down period. Weeks 21-24: Total minutes per day (not including warm-up and cool-down time): -as tolerated, up to 30 min (do not exceed time even if you feel the urge to do so) *As tolerated, your exercise can be performed as consecutive minutes. If needed, it is ok if you stop exercise early and begin the active cool-down period. -Only progress to the next training block of your program if you are able to consistently perform your exercise without experiencing any worsening of your symptoms. -If for any reason you have to miss multiple training days in succession (for example, more than 4) in a given week(s), upon resuming your exercise training it would be reasonable to briefly dial back the HR zone intensity and session duration in order to more appropriately re-introduce physical stress to your body. *For example, for 1 week, decrease the HR zone you had been previously working at prior to the time away by at least 5 bpm from both the lower and upper end of the zone. Also decrease the duration of your training sessions by at least 5 min or more. TRAINING BLOCK #4: Week 25-32 or longer (this is the minimum number of weeks. If necessary, make this training block as long as you need): Mode: Stationary Upright Bicycle (NO high intensity interval training): -Perform the active warm-up period before participating in exercise at the heart rate (HR) range described below. -Heart Rate (HR) = as tolerated, up to 115-120 bpm (PRIMARY GUIDE) -Pedal rate = 55-60 revolutions per minute (rpm). If your cycle does not provide a display of pedal rate consider using a Metronome to help guide the pace and frequency of your pedal rate. If you use a smart phone there are free Metronome apps for download. -Looney = ~25-35 . (Make minor and gradual adjustments to wheel resistance settings in order to achieve target HR zone, as needed. The Looney zone is less important than the recommended HR zone. Prioritize achieving the target HR zone.) -Rating of perceived exertion (RPE) = 12-13 (refer to above 6-20 scale) Frequency per week: -At least 3 days (non-consecutive days is preferred; or up to 5 non-consecutive days, as tolerated) -Choose a time of day (whatever your preference) where you will be able to consistently exercise on a regular basis. Controlling this factor (along with the others) will help you better understand how your body responds to exercise and other types of physical exertion. Weeks 25-28: Total minutes per day (not including warm-up and cool-down time): -as tolerated, up to 30 min (do not exceed time even if you feel the urge to do so) *As tolerated, your exercise can be performed as consecutive minutes. If needed, it is ok if you stop exercise early and begin the active cool-down period. Weeks 29-32: Total minutes per day (not including warm-up and cool-down time): -as tolerated, up to 35 min (do not exceed time even if you feel the urge to do so) *As tolerated, your exercise can be performed as consecutive minutes. If needed, it is ok if you stop exercise early and begin the active cool-down period. -Only progress to the next training block of your program if you are able to consistently perform your exercise without experiencing any worsening of your symptoms. -If for any reason you have to miss multiple training days in succession (for example, more than 4) in a given week(s), upon resuming your exercise training it would be reasonable to briefly dial back the HR zone intensity and session duration in order to more appropriately re-introduce physical stress to your body. *For example, for 1 week, decrease the HR zone you had been previously working at prior to the time away by at least 5 bpm from both the lower and upper end of the zone. Also decrease the duration of your training sessions by at least 5 min or more. TRAINING BLOCK #5: Week 33-40 or longer (this is the minimum number of weeks. If necessary, make this training block as long as you need): Mode: Stationary Upright Bicycle (NO high intensity interval training): -Perform the active warm-up period before participating in exercise at the heart rate (HR) range described below. -Heart Rate (HR) = as tolerated, up to 120-125 bpm (PRIMARY GUIDE) -Pedal rate = 55-60 revolutions per minute (rpm). If your cycle does not provide a display of pedal rate consider using a Metronome to help guide the pace and frequency of your pedal rate. If you use a smart phone there are free Metronome apps for download. -Looney = ~30-40 . (Make minor and gradual adjustments to wheel resistance settings in order to achieve target HR zone, as needed. The Looney zone is less important than the recommended HR zone. Prioritize achieving the target HR zone.) -Rating of perceived exertion (RPE) = 13-14 (refer to above 6-20 scale) Frequency per week: -At least 3 days (non-consecutive days is preferred; or up to 6 non-consecutive days, as tolerated) -Choose a time of day (whatever your preference) where you will be able to consistently exercise on a regular basis. Controlling this factor (along with the others) will help you better understand how your body responds to exercise and other types of physical exertion. Weeks 33-36: Total minutes per day (not including warm-up and cool-down time): -as tolerated, up to 35 min (do not exceed time even if you feel the urge to do so) *As tolerated, your exercise can be performed as consecutive minutes. If needed, it is ok if you stop exercise early and begin the active cool-down period. Weeks 37-40: Total minutes per day (not including warm-up and cool-down time): -as tolerated, up to 40 min (do not exceed time even if you feel the urge to do so) *As tolerated, your exercise can be performed as consecutive minutes. If needed, it is ok if you stop exercise early and begin the active cool-down period. -Only progress to the next training block of your program if you are able to consistently perform your exercise as recommended. -If for any reason you have to miss multiple training days in succession (for example, more than 4) in a given week(s), upon resuming your exercise training it would be reasonable to briefly dial back the HR zone intensity and session duration in order to more appropriately re-introduce physical stress to your body. *For example, for 1 week, decrease the HR zone you had been previously working at prior to the time away by at least 5 bpm from both the lower and upper end of the zone. Also decrease the duration of your training sessions by at least 5 min or more. TRAINING BLOCK #6: Week 41-48, and beyond (continue training at this level or at previous intensities long-term): Mode: Stationary Upright Bicycle (NO high intensity interval training): -Perform the active warm-up period before participating in exercise at the heart rate (HR) range described below. -Heart Rate (HR) = as tolerated, up to 125-130 bpm (PRIMARY GUIDE) -Pedal rate = 55-60 revolutions per minute (rpm). If your cycle does not provide a display of pedal rate consider using a Metronome to help guide the pace and frequency of your pedal rate. If you use a smart phone there are free Metronome apps for download. -Looney = ~35-45 . (Make minor and gradual adjustments to wheel resistance settings in order to achieve target HR zone, as needed. The Looney zone is less important than the recommended HR zone. Prioritize achieving the target HR zone.) -Rating of perceived exertion (RPE) = 13-14 (refer to above 6-20 scale) Frequency per week: -At least 3 days (non-consecutive days is preferred; or up to 6 non-consecutive days, as tolerated) -Choose a time of day (whatever your preference) where you will be able to consistently exercise on a regular basis. Controlling this factor (along with the others) will help you better understand how your body responds to exercise and other types of physical exertion. Weeks 41-44: Total minutes per day (not including warm-up and cool-down time): -as tolerated, up to 40 min (do not exceed time even if you feel the urge to do so) *As tolerated, your exercise can be performed as consecutive minutes. If needed, it is ok if you stop exercise early and begin the active cool-down period. Weeks 45-48, and beyond (continue training at this level or at previous intensities long-term): Total minutes per day (not including warm-up and cool-down time): -as tolerated, up to 45 min (do not exceed time even if you feel the urge to do so) *As tolerated, your exercise can be performed as consecutive minutes. If needed, it is ok if you stop exercise early and begin the active cool-down period. -If for any reason you have to miss multiple training days in succession (for example, more than 4) in a given week(s), upon resuming your exercise training it would be reasonable to briefly dial back the HR zone intensity and session duration in order to more appropriately re-introduce physical stress to your body. *For example, for 1 week, decrease the HR zone you had been previously working at prior to the time away by at least 5 bpm from both the lower and upper end of the zone. Also decrease the duration of your training sessions by at least 5 min or more. *Exercise cool-down period for exercise sessions*: DO NOT SKIP THE COOL DOWN PERIOD EVER. *Skipping the cool down will increase the likelihood you will experience an increase and persistence of symptoms following exercise. *Duration: at least 5-10 min (take longer time to cool-down as needed. This period should feel very easy, RPE = 6 to 8, refer to above 6-20 scale). -Modality options: -Stationary Upright Bicycle - Wheel resistance: none or the lowest available setting *Pedal rate: 35-40 revolutions per minute (rpm) or lower. If your cycle does not provide a display of pedal rate consider using a Metronome to help guide the pace and frequency of your pedal rate. If you use a smart phone there are free Metronome apps for download. -Rating of perceived exertion (RPE)= 6-8 (use the above 6-20 scale) Physical Activity associated with daily living: *On days where you feel as if you have more energy and less symptoms than most other days, be extremely mindful to avoid over-exerting yourself by trying to fit into your schedule too many activities and/or to-do list items. This type of running around busy day will often be followed by several days of more severe symptoms until your body is able to fully rest and recover. This can become a weekly cycle that is difficult to break if you do not intentionally manage your energy and intensity on your good days. *If there are days where you do not exercise using above equipment, it may help your symptom management to minimize consecutive minutes spent sedentary. *Throughout the day when you are performing activities of daily living, it may help to keep your exertion level within the 6 to 8 RPE range. Take many short breaks throughout the day as needed. *It may help to be mindful of the cumulative impact that concentrated doses of physical exertion associated with activities of daily living can have on your symptoms. *It may help to avoid frequent steep incline walking and frequently moving up-and-down stairs, particularly when carrying items. *It may help to avoid standing in place for extended periods of time. Break up the time by casually pacing around the room for several minutes. Flexibility/Stretching Components *At least 3 days per week engage in flexibility and stretching movements for upper and lower body limbs. *For your lower body, focus on stretching and/or foam rolling your hip flexors, extensors, and abductors (outside of hips) to help prevent the risk of developing IT band syndrome. *The intensity of stretching movements should be done to point of a feeling tightness or slight discomfort. *Attempt to hold stretch movements for 15-20 seconds at time. Try to do 3-4 sets of stretching for each chosen limb. *Hold your stretches in-place and avoid bouncing back and forth movements. Resistance/Strength Training (*OPTIONAL*): When you have been consistent with your aerobic exercise and have finished Training Block #4 (from above), as tolerated and after self-assessment of your symptoms experienced while engaging in the above exercises, you may have interest in participating in low resistance/high repetition muscle toning exercise to large muscle groups of upper (back/chest) and lower (legs) extremities as well as core (stomach muscles). As needed, seek instruction from a trained professional for proper technique and movement execution. *Always perform aerobic exercise training first. Keep the total time spent performing these weight lifting exercises on a given training day to less than 25 min. This should not be the focus of your exercise plan. *For each strength/resistance exercise, use weights that can be lifted 15 to 20 repetitions to local fatigue. *Perform 1 to 2 sets of each exercise/session at up to 2 times per week on nonconsecutive days. *As tolerated, take at least 2-3 min (or more minutes if needed) of rest between sets. *Do not aim to keep your heart rate elevated during resistance/strength training. *Avoid straining and holding breath while lifting. *Avoid standing in place while lifting weights. When possible, you should be seated when lifting weights. *Avoid overhead strength training exercises when standing. For example, do not engage in shoulder press exercise when standing. *Avoid plank exercises. Do not do full sit-ups. Do not do oblique twist exercises.Do not do lying bicycle ab workout. Do not do hanging leg raises. *Control rate of lifting and lowering weights. *Exercise routines that are similar to Cross-Fit, Washita Theory, and P90x are not recommended as choices for resistance/strength type training. These types of routines are also not effective 'cardio/aerobic' forms of training and are not equal substitutes for your cardio/aerobic guidelines described above. You can also expect to experience extreme fatigue later on in the day/evening because of these types of exercise routines. *Avoid explosive whole body exercise involving rapid, dynamic and large postural shifts (for example, lunges, squats, Burpee, squat to push press, step ups, plyometrics, etc.). *Traditional YOGA standing and/or down-to-up body position poses can cause immediate lightheadedness/dizziness symptoms. Therefore, please modify movements as needed. Performing movements while only seated on the ground can be an effective modification. Exercise and General Precautions: The following noted points are examples of things to consider when starting an exercise plan designed to assist you in managing the severity of symptoms you experience associated with your medical history. 1. Consistently drink water throughout the day in small sips/quantities to help your symptoms when standing (evidence-based research: Krystyna C, Dank VE, Leslie LJ, et al. Water drinking acutely improves orthostatic tolerance in healthy subjects. Circulation. 2002;106(22):1144-6162). Do not gulp or chug water. Slowly drink 8 ounces of water or sports drink 30 minutes before exercise (for example, low calorie options are Powerade zero, G2, propel fitness water, Vitamin Water, Nuun electrolyte tablets, Liquid IV, etc.). 2. Drink 3-5 ounces of water or sports drink every 15 minutes of exercise. DO NOT drink caffeine prior to exercise. 3. Perform both the warm up and cool down periods as described above. 4. If symptoms worsen at any point during the exercise progression, return to previous level of exercise that was well tolerated for one week, then re-attempt next level of exercise. 5. When possible, use of heart rate monitors during exercise are helpful to maintain and monitor exercise intensity based on the target heart rate ranges listed above. *Commercial heart rate monitors are not medical devices and the information acquired from these devices should not be used to make medical diagnostic decisions. *Do NOT monitor your HR while performing activities of daily living, hiking, recreational sports, or other types of quick physical movements throughout your day. 6. Change only one aspect of your exercise routine at one time (for example, mode, duration, frequency, or intensity). 7. When possible, if it has been recommended to you by Dr. Mills to wear medical grade compression stockings, please consider wearing these during exercise. Wear compression stockings throughout the day, but remove at night while sleeping. 8. If needed, monitor resting blood pressures (try to take at same time of day and location in your home each day). Hold exercise for the day if resting BP is >160/90 mmHg. 9. Continue to take medications as prescribed by Dr. Mills and other caregivers. 10. As needed, annual in-office visit to [facility]. This should include exercise stress testing and updates to the exercise prescription. As needed, if you have questions at the 6-8 month time point, please consider using the Virtual Visit platform. A Virtual Visit may be appropriate as long as you have a webcam on your computer or smart phone. Visit [email or web address] to download the guide. Questions? Contact technical support at [phone]. *Guide for Video Visits on Your Computer: [email or web address]/-/s [employer]/[place]/org/online-services/ mffszxy-mwdsy-acpxul/desktop-guide .ashx?la=en *Guide for Video Visits on the Mobile Ida: https://Workables.Health Discoveryorg/-/s [employer] [place]/org/online-services/ svpflta-jbysg-xbwybb/mobile-guide. ashx?la=en 11. It may help to avoid engaging in body movements during exercise or activities of daily living requiring rapid changes in body position (for example, lunge exercise, squats, etc.), long periods of time standing still, frequent bending down and up, or carrying weighted items long distances/up/down stairs. 12. It may help to avoid impulsive behaviors and frequent short bursts of physical actions throughout your day and across days of the week. This can cause surges in adrenaline throughout your body, which can contribute to symptoms, such as palpitations/racing heart feelings and delayed onset fatigue. 13. It may help to try to keep frequency and intensity level (modest to moderate) of physical activity associated with engaging in activities of daily living consistent over the course of each day as well as on a day-to-day basis. For example, it may be helpful for you to keep an equal balance of time spent between engaging in activities of daily living and rest to a 1 to 2 ratio. An example of this would be, 20 min of modest intensity house work followed by 40 min of rest. 14. It may help to avoid extended periods of sedentary time. Other than sleep at night, you should consider not lying or sitting for more than 60 consecutive minutes without getting up and walking at a mild pace for 5-10 minutes. Breaking up the time you spend in a sedentary position can help allow muscles in your legs to help pump blood throughout your body. 15. When eating, please consider avoiding large meals and large portions. Smaller meals and portion sizes are better for blood circulation associated with digestion. General recommendation for heart health is the mediterranean style diet (https://health.[facility].or g/bpu-tzv-rjetgi-y-vlxxwawuimhlx-p iet/). Activity guidelines were established based on evidence-based research and expert recommendations outlined in: *Yajaira et al. 'Effects of exercise training on arterial-cardiac baroreflex function in POTS,' Clin [place] Res. 21:73-80, 2010 *Brayden et al. JACC. 2010;55:2858-68 *Darius et al. The international POTS registry: Evaluating the efficacy of an exercise training intervention in a community setting. Heart Rhythm. 2016; 13:943-950 *Ed HENRY, Keegan A, Rod F, et al. Sinus Tachycardia: a Multidisciplinary Expert Focused Review. Circulation. Arrhythmia and electrophysiology. 2021;15(9):p798592. *Elijah Coronado et al. High Submaximal Exercise Heart Rate Impacts Exercise Intolerance in the Postural Orthostatic Tachycardia Syndrome. Journal of Cardiopulmonary Rehabilitation and Prevention. 2019; 1-7. DOI: 10.1097/HCR.1080422760711938 *Farrah Tavares Van Iterson EH, Ismael AGUAYO, Ed HENRY. ST-segment changes during tilt table testing for postural tachycardia syndrome: correlation with exercise stress test results. Clinical autonomic research: official journal of the Clinical Autonomic Research Society. 2020;30:79-83. *Sivakumar PERRY, Demarcus Sims, Elijah PERRY, et al. Functional capacity and quality of life in the postural tachycardia syndrome: A retrospective cross-sectional study. Annals of Medicine and Surgery. 2020. https://doi.org/10.1016/j.amsu.202 0.06.013 FOLLOW UP: *Continue routine follow up with your referring provider, Dr. Mills, for ongoing/additional discussions regarding other aspects of your heart care plan. *As needed, annual in-office visit to [facility]. This should include exercise stress testing and updates to the exercise prescription. *As needed, Virtual Visit (Visit: [email or web address] [email or web address]/[email or web address]. Questions? Contact technical support at [phone]) in 8 months for follow up discussions regarding progress made with your exercise plan. Thank you for your visit with us today in [facility]. Alberto Benitez, PhD Director, Cardiac Rehabilitation Staff, Section of [facility] [place] [facility] [address] [place] [address] Office: [phone] Appointment Desk: [phone] documented in this encounter [facility] 07-23-2024 History of Present illness Narrative Images from the original note were not included. [facility] [place] [facility] Department of Cardiovascular Medicine SECTION OF PREVENTIVE CARDIOLOGY 07/23/2024 Fang Killian CHIEF COMPLAINT Ms. Killian is a 63 year old White female seen today. Patient presents with: Exercise Prescription PAST MEDICAL HISTORY Diagnosis Date Breast cancer (HCC) 12/2022 s/p L mastectomy, no chemo, XRT; on anastrazole Cystocele with prolapse s/p hysterectomy Diverticulitis 03/15/2021 Dyslipidemia Essential hypertension situational- trying to get off medication Hypertension 2019 Mixed hyperlipidemia Diet Controlled - Vegan Multiple cysts of breast Spider veins of limb Uterine prolapse Vegan diet PAST SURGICAL HISTORY Procedure Laterality Date COLONOSCOPY 05/2022 Dr. Chirinos, repeat in 10 years per patient COLONOSCOPY GEN ANES 2012 Dr. Chirinos-reportedly negative/normal. MASTECTOMY, SIMPLE, COMPLETE Left 12/2022 TOTAL ABD HYSTERECTOMY+BLAD REPR 11/02/2019 for tx of uterine and bladder prolapse. CAD EVENTS; None PVD EVENTS: None CVD EVENTS: None Ejection Fraction: Normal (>50%) CURRENT CARDIOVASCULAR SYMPTOMS: Intermittent Claudication: No Chest Pain: Had left mastectomy in 12/2022 and never got energy back. In 2023, described as a weird sensation, tightness of 8/10 in mid left chest. Can be constant over several days. Has a lack of energy. Sometimes energy is good and sometimes it is bad. Had CTA coronary on 01/28/24 that as negative for CAD. Shortness of Breath with Exertion:Yes, even just walking from a car. If gets out of bed and legs feel jellylike will know it will be a bad day with lack of energy Lightheadedness/dizziness: No Palpitations: Not often, but it will feel like it is racing. CURRENT OUTPATIENT MEDICATIONS: Current Outpatient Medications Medication Sig iv contrast (will be provided with radiology test) MRI Breast DALE Inject, intravenously, once for 1 dose. No IV access, insert saline lock prior to the beginning of sedation, infusion, injection of imaging exam. Discontinue saline lock post exam. If Pt has a central line or IVAD, may access for administration according to line specific nursing protocol. Once exam is complete flush line and de-access according to line specific nursing protocol in the MR contrast administration guidelines link alendronate (FOSAMAX) 70 mg tablet PLEASE SEE ATTACHED FOR DETAILED DIRECTIONS DHEA vaginal suppository 13 mg (CPD) Unwrap 1 suppository and insert every night in vagina as directed for the first 2 weeks, and then every other day for 2 months. Then twice a week. lisinopril 2.5 mg tablet Take 1 tablet by mouth once daily. cholecalciferol (VITAMIN D) 1,000 unit tab tablet Take 2 tablets by mouth once daily. anastrozole (ARIMIDEX) 1 mg tablet Take 1 tablet by mouth once daily. No current facility-administered medications for this visit. ALLERGIES ALLERGIES Allergen Reactions Seasonal Allergies Other: See Comments PAST FAMILY AND SOCIAL HISTORY FAMILY HISTORY Problem Relation Age of Onset No Known Problems Mother Arthritis Father Heart Attack Father 65 UT age 65; age 80's Prostate Cancer Father No Known Problems Sister No Known Problems Maternal Grandmother No Known Problems Maternal Grandfather No Known Problems Paternal Grandmother No Known Problems Paternal Grandfather other (Pulmonary Embolus) Daughter No Known Problems Daughter No Known Problems Son No Known Problems Son Social History Tobacco Use Smoking status: Never Smokeless tobacco: Never Vaping Use Vaping status: Never Used Alcohol use: Not Currently Comment: rare Drug use: Never PATIENT ENTERED QUESTIONNAIRE SCORES 07/17/2024 PHQ-9 PHQ-2 Score 1 PHQ-9 Score 4 07/17/2024 05/27/2024 03/08/2024 DONOVAN - 2/7 SCORES DONOVAN-2 Score 1 2 0 DONOVAN-7 Score 4 07/17/2024 Mediterranean Diet Assessment Tool Score 10 (Consistent with a Mediterranean style diet) 07/17/2024 03/26/2024 12/30/2023 PROMIS Global Health - (T-Scores - the mean of general population = 50. Five points is a clinically meaningful difference.) Physical T-Score 42.3 47.7 44.9 Mental T-Score 50.8 53.3 48.3 LIFESTYLE: Tobacco Use: Never DIET Current Diet: Vegan, has been trying to increase protein by adding in some dairy. Compliance: Based on review of the patient's diet history, reported compliance is Regular. Rediness for Change:Maintenance (working to prevent relapse) Barriers: none EXERCISE History: Until 2019 was very active and fit. Was running in the past, but would develop back pain so would stop running. Had hysterectomy in 2019 and then did not do exercise. after about 3 years got energy back and was playing some tennis. Then had mastectomy. Trying in spring 2023 was trying to walk 30 minutes per day, then hit a wall with activity. Now exercise is limited. 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 Has tried some stationary cycling of about 6 minutes Readiness for change:Preparation (intent to change in <1 month) Access to Exercise Equipment:Home stationary Cycle, resistance bands, free weights and weight bench. No current gym or recreation center membership. Barriers: Above symptoms. Has osteoporosis. Feels like exercise is not good for her, because every time she tries to exercise something goes wrong. Hesitant to exercise since the symptoms are unpredictable. Would like to play Pickle ball. WEIGHT MANAGEMENT: History: weight stable over the past year Weight management strategies:Diet Readiness to change: Maintenance (working to prevent relapse) Barriers: as above. CLINICAL TESTING RESULTS Lab Results: Cholesterol, Total Date Value Ref Range Status 01/06/2024 209 (H) <200 mg/dL Final Comment: <200 mg/dL, Desirable 200-239 mg/dL, Borderline high >239 mg/dL, High Triglyceride Date Value Ref Range Status 01/06/2024 84 <150 mg/dL Final Comment: <150 mg/dL, Normal 150-199 mg/dL, Borderline high 200-499 mg/dL, High >499 mg/dL, Very high HDL Cholesterol Date Value Ref Range Status 01/06/2024 59 >39 mg/dL Final Comment: 40-59 mg/dL, Acceptable >59 mg/dL, High: Negative risk factor for coronary heart disease <40 mg/dL, Low: Positive risk factor for coronary heart disease LDL Cholesterol, Calculated Date Value Ref Range Status 01/06/2024 133 (H) <100 mg/dL Final Comment: <100 mg/dL, Optimal 100-129 mg/dL, Near optimal/above optimal 130-159 mg/dL, Borderline high 160-189 mg/dL, High >189 mg/dL, Very high Secondary prevention optimal LDL Cholesterol levels are recommended to be < 70 mg/dL Hemoglobin A1C Date Value Ref Range Status 03/28/2023 5.3 4.3 - 5.6 % Final Comment: [place] [employer] guidelines indicate that patients with HgbA1c in the range 5.7-6.4% are at increased risk for development of diabetes, and intervention by lifestyle modification may be beneficial. HgbA1c greater or equal to 6.5% is considered diagnostic of diabetes. ALT Date Value Ref Range Status 01/06/2024 17 7 - 38 U/L Final AST Date Value Ref Range Status 01/06/2024 17 13 - 35 U/L Final Glucose Date Value Ref Range Status 01/06/2024 96 74 - 99 mg/dL Final Comment: The [place] [employer] (ADA) provides guidance for cutoff values for fasting glucose and random glucose. The ADA defines fasting as no caloric intake for at least 8 hours. Fasting plasma glucose results between 100 to 125 mg/dL indicate increased risk for diabetes (prediabetes). Fasting plasma glucose results greater than or equal to 126 mg/dL meet the criteria for diagnosis of diabetes. In the absence of unequivocal hyperglycemia, results should be confirmed by repeat testing. In a patient with classic symptoms of hyperglycemia or hyperglycemic crisis, random plasma glucose results greater than or equal to 200 mg/dL meet the criteria for diagnosis of diabetes. Reference: Standards of Medical Care in Diabetes 2016, [place] [employer]. Diabetes Care. 2016.39(Suppl 1). TSH Date Value Ref Range Status 01/06/2024 1.730 0.270 - 4.200 mIU/L Final CLINICAL TESTING RESULTS: Exercise Test Fang Killian demonstrated an end exercise capacity equal to 5.2 METS and 85 LOONEY (protocol, Upright Cycle), while being free from signs and symptoms of ischemia on July 23, 2024. her end-exercise heart rate was 155 bpm , whereas her relative end-exercise heart rate was 99 % of her age predicted maximal response. The exercise test was terminated because of Leg Fatigue . Dyspnea (5, 0-10 scale). Angina was not provoked by stress No ST segment changes An isolated 8-beat run of atrial tachycardia during stage 4 of stress; otherwise normal rhythm. No corresponding symptoms Resting HTN. Exercise DBP HTN See Epic results for finalized test report and interpretations. Test Impression: Normal; and with an estimated end-exercise METS achieved in the top 70th to 90th percentile for age and sex. Good/excellent exercise work capacity for age and sex. AEROBIC-BASED EXERCISE TRAINING PLAN FOR SYMPTOM MANAGEMENT: Initiate the self-supervised aerobic-based exercise prescription for aerobic conditioning and symptom management as outlined below: *Participation in structured aerobic-based exercise as recommended below constitutes a single aspect of your symptom management plan and should not be viewed as the only factor responsible for managing the severity of your symptoms. *Structured, consistent, and specific aerobic-based exercise is therapeutic and can provide you with a dose-benefit response. This means the more consistent you can be with performing intentional aerobic-based exercise at a safe and appropriate intensity, the more likely you are to see the benefits of aerobic-based exercise training for managing your symptoms. *Do not participate in maximal intensity exercise and/or other forms of severe/heavy intensity physical exertion for your symptom management plan. *Participation in high intensity interval training (HIIT) is not recommended when aiming to exercise train for managing symptom severity. *Participating in maximal/high/severe/heavy intensity physical exertion regardless of whether it occurs in a gym or elsewhere will commonly result in feeling the need to rest/recover for up to 3-4 days before feeling energy and physical endurance levels return to a higher baseline. *Consistently drink water throughout the day in small sips/quantities. Not drinking enough water throughout the day will increase the likelihood your heart rate will rise to levels higher than typical while at rest as well as when changing body positions from sitting to standing. *Do not gulp or chug water. Aerobic Exercise Training: -Choose a time of day (whatever your preference) where you will be able to consistently exercise on a regular basis. Controlling this factor (along with the others) will help you better understand how your body responds to exercise and other types of physical exertion. Subjective exercise intensity scale Rating of perceived exertion (RPE) scale (6-20): *When guiding exercise training intensities, inclusively consider *HR zones (primary guide)*, workload zones, symptoms, and RPE zones. *If you need to make adjustments to the recommended exercise machine settings (noted below) in order to achieve your target HR zone this is perfectly ok. *Commercial devices that can be used to monitor HR while exercising include for example: *Smart Watch (cloud.IQ, Sqeeqee, [employer], Firmafon, Fitbit, etc) *Finger pulse oximeter - wear on middle finger. Make sure no nail latvian is present. Do not hoop punch and coiler operator helper handle bar tightly *Commercial heart rate monitors used during exercise training are not medical devices and the information acquired from these devices should not be used to make medical diagnostic decisions. *Do NOT monitor your HR while performing activities of daily living, recreational sports, hiking, or other types of quick physical movements throughout your day. *If any exercise occurs outdoors, it will be more difficult to maintain consistent control of your HR response to exercise due to numerous environmental and terrain factors. *You can also expect to expend more energy when performing your exercise outdoors due the influences of numerous environmental and terrain factors. Therefore, take a more conservative approach when performing your exercise training outdoors. *Slowly drink 8-12 ounces of water or sports drink within the 30 minutes before exercise (for example, low calorie sugar-free options are Powerade zero, G2, propel fitness water, Vitamin Water, Nuun electrolyte tablets, Liquid IV, etc.). *If you begin exercise without having taken in enough fluid throughout the day, it will be easier for your body temperature to rise quickly and lead to the feeling of being overheated. *Continue to drink fluid throughout exercise and the recovery period as needed. *DO NOT drink caffeine within 3 hours prior to exercise. *Warm-up exercise period immediately prior to performing sessions*: DO NOT SKIP THE WARM UP EVER. The warm up should be performed on the exact piece of equipment you plan on performing your exercise training that day. Do not perform multiple warm up periods on different pieces of equipment. *Skipping the warm up will increase the likelihood you will experience an increase in symptoms during exercise. -Duration: at least 6-8 min (take longer time to warm-up as needed). -Modality options: -Stationary Upright Bicycle - Wheel resistance: none or the lowest available setting *Pedal rate: 35-40 revolutions per minute (rpm) or lower. If your cycle does not provide a display of pedal rate consider using a Metronome to help guide the pace and frequency of your pedal rate. If you use a smart phone there are free Metronome apps for download. -Take as much time as you need after to allow your body to get settled after changing body positions from standing to sitting. -Intensity: heart rate (HR) = 80-85 bpm and Rating of perceived exertion (RPE)= 6-8 (use the above 6-20 scale). *Aerobic Exercise Sessions by Week and Modality*: TRAINING BLOCK #1: Week 1-8 or longer (this is the minimum number of weeks. If necessary, make this training block as long as you need): Mode: Stationary Upright Bicycle (NO high intensity interval training): -Perform the active warm-up period before participating in exercise at the heart rate (HR) range described below. -Heart Rate (HR) = as tolerated, up to 100-105 bpm (PRIMARY GUIDE) -Pedal rate = 55-60 revolutions per minute (rpm). If your cycle does not provide a display of pedal rate consider using a Metronome to help guide the pace and frequency of your pedal rate. If you use a smart phone there are free Metronome apps for download. -Looney = ~15-20 . (Make minor and gradual adjustments to wheel resistance settings in order to achieve target HR zone, as needed. The Looney zone is less important than the recommended HR zone. Prioritize achieving the target HR zone.) -Rating of perceived exertion (RPE) = 10-12 (refer to above 6-20 scale) Frequency per week: -At least 3 days (non-consecutive days is preferred; or up to 4 non-consecutive days, as tolerated) -Choose a time of day (whatever your preference) where you will be able to consistently exercise on a regular basis. Controlling this factor (along with the others) will help you better understand how your body responds to exercise and other types of physical exertion. Weeks 1-4: Total minutes per day (not including warm-up and cool-down time): -as tolerated, up to 15 min (do not exceed time even if you feel the urge to do so) *As tolerated, your exercise can be performed as consecutive minutes. If needed, it is ok if you stop exercise early and begin the active cool-down period. Weeks 5-8: Total minutes per day (not including warm-up and cool-down time): -as tolerated, up to 20 min (do not exceed time even if you feel the urge to do so) *As tolerated, your exercise can be performed as consecutive minutes. If needed, it is ok if you stop exercise early and begin the active cool-down period. -Only progress to the next training block of your program if you are able to consistently perform your exercise without experiencing any worsening of your symptoms. -If for any reason you have to miss multiple training days in succession (for example, more than 4) in a given week(s), upon resuming your exercise training it would be reasonable to briefly dial back the HR zone intensity and session duration in order to more appropriately re-introduce physical stress to your body. *For example, for 1 week, decrease the HR zone you had been previously working at prior to the time away by at least 5 bpm from both the lower and upper end of the zone. Also decrease the duration of your training sessions by at least 5 min or more. TRAINING BLOCK #2: Week 9-16 or longer (this is the minimum number of weeks. If necessary, make this training block as long as you need): Mode: Stationary Upright Bicycle (NO high intensity interval training): -Perform the active warm-up period before participating in exercise at the heart rate (HR) range described below. -Heart Rate (HR) = as tolerated, up to 105-110 bpm (PRIMARY GUIDE) -Pedal rate = 55-60 revolutions per minute (rpm). If your cycle does not provide a display of pedal rate consider using a Metronome to help guide the pace and frequency of your pedal rate. If you use a smart phone there are free Metronome apps for download. -Looney = ~15-25 . (Make minor and gradual adjustments to wheel resistance settings in order to achieve target HR zone, as needed. The Looney zone is less important than the recommended HR zone. Prioritize achieving the target HR zone.) -Rating of perceived exertion (RPE) = 11-12 (refer to above 6-20 scale) Frequency per week: -At least 3 days (non-consecutive days is preferred; or up to 5 non-consecutive days, as tolerated) -Choose a time of day (whatever your preference) where you will be able to consistently exercise on a regular basis. Controlling this factor (along with the others) will help you better understand how your body responds to exercise and other types of physical exertion. Weeks 9-12: Total minutes per day (not including warm-up and cool-down time): -as tolerated, up to 20 min (do not exceed time even if you feel the urge to do so) *As tolerated, your exercise can be performed as consecutive minutes. If needed, it is ok if you stop exercise early and begin the active cool-down period. Weeks 13-16: Total minutes per day (not including warm-up and cool-down time): -as tolerated, up to 25 min (do not exceed time even if you feel the urge to do so) *As tolerated, your exercise can be performed as consecutive minutes. If needed, it is ok if you stop exercise early and begin the active cool-down period. -Only progress to the next training block of your program if you are able to consistently perform your exercise without experiencing any worsening of your symptoms. -If for any reason you have to miss multiple training days in succession (for example, more than 4) in a given week(s), upon resuming your exercise training it would be reasonable to briefly dial back the HR zone intensity and session duration in order to more appropriately re-introduce physical stress to your body. *For example, for 1 week, decrease the HR zone you had been previously working at prior to the time away by at least 5 bpm from both the lower and upper end of the zone. Also decrease the duration of your training sessions by at least 5 min or more. TRAINING BLOCK #3: Week 17-24 or longer (this is the minimum number of weeks. If necessary, make this training block as long as you need): Mode: Stationary Upright Bicycle (NO high intensity interval training): -Perform the active warm-up period before participating in exercise at the heart rate (HR) range described below. -Heart Rate (HR) = as tolerated, up to 110-115 bpm (PRIMARY GUIDE) -Pedal rate = 55-60 revolutions per minute (rpm). If your cycle does not provide a display of pedal rate consider using a Metronome to help guide the pace and frequency of your pedal rate. If you use a smart phone there are free Metronome apps for download. -Looney = ~20-30 . (Make minor and gradual adjustments to wheel resistance settings in order to achieve target HR zone, as needed. The Looney zone is less important than the recommended HR zone. Prioritize achieving the target HR zone.) -Rating of perceived exertion (RPE) = 11-12 (refer to above 6-20 scale) Frequency per week: -At least 3 days (non-consecutive days is preferred; or up to 5 non-consecutive days, as tolerated) -Choose a time of day (whatever your preference) where you will be able to consistently exercise on a regular basis. Controlling this factor (along with the others) will help you better understand how your body responds to exercise and other types of physical exertion. Weeks 17-20: Total minutes per day (not including warm-up and cool-down time): -as tolerated, up to 25 min (do not exceed time even if you feel the urge to do so) *As tolerated, your exercise can be performed as consecutive minutes. If needed, it is ok if you stop exercise early and begin the active cool-down period. Weeks 21-24: Total minutes per day (not including warm-up and cool-down time): -as tolerated, up to 30 min (do not exceed time even if you feel the urge to do so) *As tolerated, your exercise can be performed as consecutive minutes. If needed, it is ok if you stop exercise early and begin the active cool-down period. -Only progress to the next training block of your program if you are able to consistently perform your exercise without experiencing any worsening of your symptoms. -If for any reason you have to miss multiple training days in succession (for example, more than 4) in a given week(s), upon resuming your exercise training it would be reasonable to briefly dial back the HR zone intensity and session duration in order to more appropriately re-introduce physical stress to your body. *For example, for 1 week, decrease the HR zone you had been previously working at prior to the time away by at least 5 bpm from both the lower and upper end of the zone. Also decrease the duration of your training sessions by at least 5 min or more. TRAINING BLOCK #4: Week 25-32 or longer (this is the minimum number of weeks. If necessary, make this training block as long as you need): Mode: Stationary Upright Bicycle (NO high intensity interval training): -Perform the active warm-up period before participating in exercise at the heart rate (HR) range described below. -Heart Rate (HR) = as tolerated, up to 115-120 bpm (PRIMARY GUIDE) -Pedal rate = 55-60 revolutions per minute (rpm). If your cycle does not provide a display of pedal rate consider using a Metronome to help guide the pace and frequency of your pedal rate. If you use a smart phone there are free Metronome apps for download. -Looney = ~25-35 . (Make minor and gradual adjustments to wheel resistance settings in order to achieve target HR zone, as needed. The Looney zone is less important than the recommended HR zone. Prioritize achieving the target HR zone.) -Rating of perceived exertion (RPE) = 12-13 (refer to above 6-20 scale) Frequency per week: -At least 3 days (non-consecutive days is preferred; or up to 5 non-consecutive days, as tolerated) -Choose a time of day (whatever your preference) where you will be able to consistently exercise on a regular basis. Controlling this factor (along with the others) will help you better understand how your body responds to exercise and other types of physical exertion. Weeks 25-28: Total minutes per day (not including warm-up and cool-down time): -as tolerated, up to 30 min (do not exceed time even if you feel the urge to do so) *As tolerated, your exercise can be performed as consecutive minutes. If needed, it is ok if you stop exercise early and begin the active cool-down period. Weeks 29-32: Total minutes per day (not including warm-up and cool-down time): -as tolerated, up to 35 min (do not exceed time even if you feel the urge to do so) *As tolerated, your exercise can be performed as consecutive minutes. If needed, it is ok if you stop exercise early and begin the active cool-down period. -Only progress to the next training block of your program if you are able to consistently perform your exercise without experiencing any worsening of your symptoms. -If for any reason you have to miss multiple training days in succession (for example, more than 4) in a given week(s), upon resuming your exercise training it would be reasonable to briefly dial back the HR zone intensity and session duration in order to more appropriately re-introduce physical stress to your body. *For example, for 1 week, decrease the HR zone you had been previously working at prior to the time away by at least 5 bpm from both the lower and upper end of the zone. Also decrease the duration of your training sessions by at least 5 min or more. TRAINING BLOCK #5: Week 33-40 or longer (this is the minimum number of weeks. If necessary, make this training block as long as you need): Mode: Stationary Upright Bicycle (NO high intensity interval training): -Perform the active warm-up period before participating in exercise at the heart rate (HR) range described below. -Heart Rate (HR) = as tolerated, up to 120-125 bpm (PRIMARY GUIDE) -Pedal rate = 55-60 revolutions per minute (rpm). If your cycle does not provide a display of pedal rate consider using a Metronome to help guide the pace and frequency of your pedal rate. If you use a smart phone there are free Metronome apps for download. -Looney = ~30-40 . (Make minor and gradual adjustments to wheel resistance settings in order to achieve target HR zone, as needed. The Looney zone is less important than the recommended HR zone. Prioritize achieving the target HR zone.) -Rating of perceived exertion (RPE) = 13-14 (refer to above 6-20 scale) Frequency per week: -At least 3 days (non-consecutive days is preferred; or up to 6 non-consecutive days, as tolerated) -Choose a time of day (whatever your preference) where you will be able to consistently exercise on a regular basis. Controlling this factor (along with the others) will help you better understand how your body responds to exercise and other types of physical exertion. Weeks 33-36: Total minutes per day (not including warm-up and cool-down time): -as tolerated, up to 35 min (do not exceed time even if you feel the urge to do so) *As tolerated, your exercise can be performed as consecutive minutes. If needed, it is ok if you stop exercise early and begin the active cool-down period. Weeks 37-40: Total minutes per day (not including warm-up and cool-down time): -as tolerated, up to 40 min (do not exceed time even if you feel the urge to do so) *As tolerated, your exercise can be performed as consecutive minutes. If needed, it is ok if you stop exercise early and begin the active cool-down period. -Only progress to the next training block of your program if you are able to consistently perform your exercise as recommended. -If for any reason you have to miss multiple training days in succession (for example, more than 4) in a given week(s), upon resuming your exercise training it would be reasonable to briefly dial back the HR zone intensity and session duration in order to more appropriately re-introduce physical stress to your body. *For example, for 1 week, decrease the HR zone you had been previously working at prior to the time away by at least 5 bpm from both the lower and upper end of the zone. Also decrease the duration of your training sessions by at least 5 min or more. TRAINING BLOCK #6: Week 41-48, and beyond (continue training at this level or at previous intensities long-term): Mode: Stationary Upright Bicycle (NO high intensity interval training): -Perform the active warm-up period before participating in exercise at the heart rate (HR) range described below. -Heart Rate (HR) = as tolerated, up to 125-130 bpm (PRIMARY GUIDE) -Pedal rate = 55-60 revolutions per minute (rpm). If your cycle does not provide a display of pedal rate consider using a Metronome to help guide the pace and frequency of your pedal rate. If you use a smart phone there are free Metronome apps for download. -Looney = ~35-45 . (Make minor and gradual adjustments to wheel resistance settings in order to achieve target HR zone, as needed. The Looney zone is less important than the recommended HR zone. Prioritize achieving the target HR zone.) -Rating of perceived exertion (RPE) = 13-14 (refer to above 6-20 scale) Frequency per week: -At least 3 days (non-consecutive days is preferred; or up to 6 non-consecutive days, as tolerated) -Choose a time of day (whatever your preference) where you will be able to consistently exercise on a regular basis. Controlling this factor (along with the others) will help you better understand how your body responds to exercise and other types of physical exertion. Weeks 41-44: Total minutes per day (not including warm-up and cool-down time): -as tolerated, up to 40 min (do not exceed time even if you feel the urge to do so) *As tolerated, your exercise can be performed as consecutive minutes. If needed, it is ok if you stop exercise early and begin the active cool-down period. Weeks 45-48, and beyond (continue training at this level or at previous intensities long-term): Total minutes per day (not including warm-up and cool-down time): -as tolerated, up to 45 min (do not exceed time even if you feel the urge to do so) *As tolerated, your exercise can be performed as consecutive minutes. If needed, it is ok if you stop exercise early and begin the active cool-down period. -If for any reason you have to miss multiple training days in succession (for example, more than 4) in a given week(s), upon resuming your exercise training it would be reasonable to briefly dial back the HR zone intensity and session duration in order to more appropriately re-introduce physical stress to your body. *For example, for 1 week, decrease the HR zone you had been previously working at prior to the time away by at least 5 bpm from both the lower and upper end of the zone. Also decrease the duration of your training sessions by at least 5 min or more. *Exercise cool-down period for exercise sessions*: DO NOT SKIP THE COOL DOWN PERIOD EVER. *Skipping the cool down will increase the likelihood you will experience an increase and persistence of symptoms following exercise. *Duration: at least 5-10 min (take longer time to cool-down as needed. This period should feel very easy, RPE = 6 to 8, refer to above 6-20 scale). -Modality options: -Stationary Upright Bicycle - Wheel resistance: none or the lowest available setting *Pedal rate: 35-40 revolutions per minute (rpm) or lower. If your cycle does not provide a display of pedal rate consider using a Metronome to help guide the pace and frequency of your pedal rate. If you use a smart phone there are free Metronome apps for download. -Rating of perceived exertion (RPE)= 6-8 (use the above 6-20 scale) Physical Activity associated with daily living: *On days where you feel as if you have more energy and less symptoms than most other days, be extremely mindful to avoid over-exerting yourself by trying to fit into your schedule too many activities and/or to-do list items. This type of running around busy day will often be followed by several days of more severe symptoms until your body is able to fully rest and recover. This can become a weekly cycle that is difficult to break if you do not intentionally manage your energy and intensity on your good days. *If there are days where you do not exercise using above equipment, it may help your symptom management to minimize consecutive minutes spent sedentary. *Throughout the day when you are performing activities of daily living, it may help to keep your exertion level within the 6 to 8 RPE range. Take many short breaks throughout the day as needed. *It may help to be mindful of the cumulative impact that concentrated doses of physical exertion associated with activities of daily living can have on your symptoms. *It may help to avoid frequent steep incline walking and frequently moving up-and-down stairs, particularly when carrying items. *It may help to avoid standing in place for extended periods of time. Break up the time by casually pacing around the room for several minutes. Flexibility/Stretching Components *At least 3 days per week engage in flexibility and stretching movements for upper and lower body limbs. *For your lower body, focus on stretching and/or foam rolling your hip flexors, extensors, and abductors (outside of hips) to help prevent the risk of developing IT band syndrome. *The intensity of stretching movements should be done to point of a feeling tightness or slight discomfort. *Attempt to hold stretch movements for 15-20 seconds at time. Try to do 3-4 sets of stretching for each chosen limb. *Hold your stretches in-place and avoid bouncing back and forth movements. Resistance/Strength Training (*OPTIONAL*): When you have been consistent with your aerobic exercise and have finished Training Block #4 (from above), as tolerated and after self-assessment of your symptoms experienced while engaging in the above exercises, you may have interest in participating in low resistance/high repetition muscle toning exercise to large muscle groups of upper (back/chest) and lower (legs) extremities as well as core (stomach muscles). As needed, seek instruction from a trained professional for proper technique and movement execution. *Always perform aerobic exercise training first. Keep the total time spent performing these weight lifting exercises on a given training day to less than 25 min. This should not be the focus of your exercise plan. *For each strength/resistance exercise, use weights that can be lifted 15 to 20 repetitions to local fatigue. *Perform 1 to 2 sets of each exercise/session at up to 2 times per week on nonconsecutive days. *As tolerated, take at least 2-3 min (or more minutes if needed) of rest between sets. *Do not aim to keep your heart rate elevated during resistance/strength training. *Avoid straining and holding breath while lifting. *Avoid standing in place while lifting weights. When possible, you should be seated when lifting weights. *Avoid overhead strength training exercises when standing. For example, do not engage in shoulder press exercise when standing. *Avoid plank exercises. Do not do full sit-ups. Do not do oblique twist exercises.Do not do lying bicycle ab workout. Do not do hanging leg raises. *Control rate of lifting and lowering weights. *Exercise routines that are similar to Cross-Fit, Washita Theory, and P90x are not recommended as choices for resistance/strength type training. These types of routines are also not effective 'cardio/aerobic' forms of training and are not equal substitutes for your cardio/aerobic guidelines described above. You can also expect to experience extreme fatigue later on in the day/evening because of these types of exercise routines. *Avoid explosive whole body exercise involving rapid, dynamic and large postural shifts (for example, lunges, squats, Burpee, squat to push press, step ups, plyometrics, etc.). *Traditional YOGA standing and/or down-to-up body position poses can cause immediate lightheadedness/dizziness symptoms. Therefore, please modify movements as needed. Performing movements while only seated on the ground can be an effective modification. Exercise and General Precautions: The following noted points are examples of things to consider when starting an exercise plan designed to assist you in managing the severity of symptoms you experience associated with your medical history. 1. Consistently drink water throughout the day in small sips/quantities to help your symptoms when standing (evidence-based research: Krystyna C, Dank VE, Leslie LJ, et al. Water drinking acutely improves orthostatic tolerance in healthy subjects. Circulation. 2002;106(22):0967-0039). Do not gulp or chug water. Slowly drink 8 ounces of water or sports drink 30 minutes before exercise (for example, low calorie options are Powerade zero, G2, propel fitness water, Vitamin Water, Nuun electrolyte tablets, Liquid IV, etc.). 2. Drink 3-5 ounces of water or sports drink every 15 minutes of exercise. DO NOT drink caffeine prior to exercise. 3. Perform both the warm up and cool down periods as described above. 4. If symptoms worsen at any point during the exercise progression, return to previous level of exercise that was well tolerated for one week, then re-attempt next level of exercise. 5. When possible, use of heart rate monitors during exercise are helpful to maintain and monitor exercise intensity based on the target heart rate ranges listed above. *Commercial heart rate monitors are not medical devices and the information acquired from these devices should not be used to make medical diagnostic decisions. *Do NOT monitor your HR while performing activities of daily living, hiking, recreational sports, or other types of quick physical movements throughout your day. 6. Change only one aspect of your exercise routine at one time (for example, mode, duration, frequency, or intensity). 7. When possible, if it has been recommended to you by Dr. Mills to wear medical grade compression stockings, please consider wearing these during exercise. Wear compression stockings throughout the day, but remove at night while sleeping. 8. If needed, monitor resting blood pressures (try to take at same time of day and location in your home each day). Hold exercise for the day if resting BP is >160/90 mmHg. 9. Continue to take medications as prescribed by Dr. Mills and other caregivers. 10. As needed, annual in-office visit to [facility]. This should include exercise stress testing and updates to the exercise prescription. As needed, if you have questions at the 6-8 month time point, please consider using the Virtual Visit platform. A Virtual Visit may be appropriate as long as you have a webcam on your computer or smart phone. Visit [email or web address] to download the guide. Questions? Contact technical support at [phone]. *Guide for Video Visits on Your Computer: [email or web address]/-/s [employer]/files/org/online-services/ nytzqjg-putbf-inkror/desktop-guide .ashx?la=en *Guide for Video Visits on the Mobile Ida: https://my.[facility].org/-/s [employer]/files/org/online-services/ wkjuqpg-hvyhz-gsyhii/mobile-guide. ashx?la=en 11. It may help to avoid engaging in body movements during exercise or activities of daily living requiring rapid changes in body position (for example, lunge exercise, squats, etc.), long periods of time standing still, frequent bending down and up, or carrying weighted items long distances/up/down stairs. 12. It may help to avoid impulsive behaviors and frequent short bursts of physical actions throughout your day and across days of the week. This can cause surges in adrenaline throughout your body, which can contribute to symptoms, such as palpitations/racing heart feelings and delayed onset fatigue. 13. It may help to try to keep frequency and intensity level (modest to moderate) of physical activity associated with engaging in activities of daily living consistent over the course of each day as well as on a day-to-day basis. For example, it may be helpful for you to keep an equal balance of time spent between engaging in activities of daily living and rest to a 1 to 2 ratio. An example of this would be, 20 min of modest intensity house work followed by 40 min of rest. 14. It may help to avoid extended periods of sedentary time. Other than sleep at night, you should consider not lying or sitting for more than 60 consecutive minutes without getting up and walking at a mild pace for 5-10 minutes. Breaking up the time you spend in a sedentary position can help allow muscles in your legs to help pump blood throughout your body. 15. When eating, please consider avoiding large meals and large portions. Smaller meals and portion sizes are better for blood circulation associated with digestion. General recommendation for heart health is the mediterranean style diet (https://health.[facility].or g/kzz-qwh-dzntfm-k-vfavnjmaqazfw-k iet/). Activity guidelines were established based on evidence-based research and expert recommendations outlined in: *Yajaira et al. 'Effects of exercise training on arterial-cardiac baroreflex function in POTS,' Clin [place] Res. 21:73-80, 2011 *Brayden montero al. JACC. 2010;55:2858-68 *Darius et al. The international POTS registry: Evaluating the efficacy of an exercise training intervention in a community setting. Heart Rhythm. 2016; 13:943-950 *dE KA, Keegan A, Rod Sierra, et al. Sinus Tachycardia: a Multidisciplinary Expert Focused Review. Circulation. Arrhythmia and electrophysiology. 2021;15(9):k616584. *Elijah Coronado et al. High Submaximal Exercise Heart Rate Impacts Exercise Intolerance in the Postural Orthostatic Tachycardia Syndrome. Journal of Cardiopulmonary Rehabilitation and Prevention. 2019; 1-7. DOI: 10.1097/HCR.4489320073501362 *Demarcus Sims, Farrah Wood, Elijah PERRY, Ismael AGUAYO, Ed KA. ST-segment changes during tilt table testing for postural tachycardia syndrome: correlation with exercise stress test results. Clinical autonomic research: official journal of the Clinical Autonomic Research Society. 2020;30:79-83. *Sivakumar PERRY, Demarcus Sims, Elijah PERRY, et al. Functional capacity and quality of life in the postural tachycardia syndrome: A retrospective cross-sectional study. Annals of Medicine and Surgery. 2020. https://doi.org/10.1016/j.amsu.202 0.06.013 SUMMARY: Fang Killian is a 63 year old female who was referred by Dr. Mills for exercise counseling due to chest pain, HTN, HPL and sub-optimal exercise pattern. Last echo on 03/25/24 with LVEF = 67% and no significant valve abnormalities. CTA of coronary arteries on 01/28/24 was negative for CAD. Other medical history is notable for breast cancer with left mastectomy in 2022. Medical/surgical history also significant for: PAST MEDICAL HISTORY Diagnosis Date Breast cancer (HCC) 12/2022 s/p L mastectomy, no chemo, XRT; on anastrazole Cystocele with prolapse s/p hysterectomy Diverticulitis 03/15/2021 Dyslipidemia Essential hypertension situational- trying to get off medication Hypertension 2019 Mixed hyperlipidemia Diet Controlled - Vegan Multiple cysts of breast Spider veins of limb Uterine prolapse Vegan diet PAST SURGICAL HISTORY Procedure Laterality Date COLONOSCOPY 05/2022 Dr. Chirinos, repeat in 10 years per patient COLONOSCOPY GEN ANES 2012 Dr. Chirinos-reportedly negative/normal. MASTECTOMY, SIMPLE, COMPLETE Left 12/2022 TOTAL ABD HYSTERECTOMY+BLAD REPR 11/02/2019 for tx of uterine and bladder prolapse. Fang Killian reports no regular recent history of formal structured aerobic exercise. Results from Fang Killian's graded exercise test suggest they provided an adequate effort and demonstrate an estimated end-exercise METS in the top 70th to 90th percentile for age and sex. Good exercise work capacity for age and sex. Discussed in detail the benefits of regular exercise, options for exercise, and strategies to achieve long-term adherence to this program aimed at symptom management. Fang Killian was instructed on monitoring target heart rate ranges and to use the RPE scale to guide intensity/progression of exercise. Fang Killian is very eager to engage in aforementioned exercise recommendations for symptom management. Individualized exercise guidelines for symptom management were developed based on Fang Killian's graded exercise test results, interests and goals, and comorbidities. FOLLOW UP: *Continue routine follow up with your referring provider, Dr. Mills, for ongoing/additional discussions regarding other aspects of your heart care plan. *As needed, annual in-office visit to [facility]. This should include exercise stress testing and updates to the exercise prescription. *As needed, Virtual Visit (Visit: [email or web address] [email or web address]-services/amost/faq. Questions? Contact technical support at [phone]) in 8 months for follow up discussions regarding progress made with your exercise plan. Thank you for your visit with us today in [facility]. Alberto Benitez, PhD Chief Complaint: Patient presents with: Exercise Prescription PHYSICAL EXAM: BP 142/96 Pulse 78 Ht 167.6 cm (5' 6) Wt 64.8 kg (142 lb 13.7 oz) BMI 23.06 kg/m Heart sounds: S1/S2, RRR, no murmurs Lung sounds: CTA bilaterally. Carotids: +2 pulses bilaterally, no bruit. Extremities: No edema, +2 DP pulses ASSESSMENT: ok to proceed with stress test for exercise guidelines PLAN The results of this assessment were discussed with the patient. We have mutually agreed upon the following plans and goals: Exercise and lifestyle guidance as above per care program resident. I have reviewed the documentation obtained and documented by the EP and have reviewed and updated the problem list as appropriate. I have personally performed a face to face assessment of the patient and have personally participated in the arrieta components. I have discussed the case and management of the patient's care. Arleen Garza APRN.[facility] PATIENT EDUCATION Topic: Exercise Instruction Provided To: Patient and Family Member/Significant Other Discipline: EP Instructed By: Alberto Benitez, PhD Motivation to Learn: Eager Family/SO Support: High Cognitive Ability: Alert/Oriented Learning Preference: Individual Instructions Barriers: None Diagnosis: Primary Prevention Lifestyle Changes: Exercise Understanding: Verbalize Understanding Follow up: Complete Methods of Instruction: Verbal instruction and/or handouts. documented in this encounter [facility] 07-23-2024 Note HNO ID: [id number] Author: ARLEEN GARZA APRN.DAVID Service: ? Author Type: Nurse Practitioner Type: Progress Notes Filed: 07/28/2024 23:49 Note Text: [facility] Department of Cardiovascular Medicine SECTION OF [facility] 07/23/2024 Fang Killian CHIEF COMPLAINT Ms. Killian is a 63 year old White female seen today. Patient presents with: Exercise Prescription PAST MEDICAL HISTORY Diagnosis Date Breast cancer (HCC) 12/2022 s/p L mastectomy, no chemo, XRT; on anastrazole Cystocele with prolapse s/p hysterectomy Diverticulitis 03/15/2021 Dyslipidemia Essential hypertension situational- trying to get off medication Hypertension 2019 Mixed hyperlipidemia Diet Controlled - Vegan Multiple cysts of breast Spider veins of limb Uterine prolapse Vegan diet PAST SURGICAL HISTORY Procedure Laterality Date COLONOSCOPY 05/2022 Dr. Chirinos, repeat in 10 years per patient COLONOSCOPY GEN ANES 2012 Dr. Chirinos-reportedly negative/normal. MASTECTOMY, SIMPLE, COMPLETE Left 12/2022 TOTAL ABD HYSTERECTOMY+BLAD REPR 11/02/2019 for tx of uterine and bladder prolapse. CAD EVENTS; None PVD EVENTS: None CVD EVENTS: None Ejection Fraction: Normal (>50%) CURRENT CARDIOVASCULAR SYMPTOMS: Intermittent Claudication: No Chest Pain: Had left mastectomy in 12/2022 and never got energy back. In 2023, described as a weird sensation, tightness of 8/10 in mid left chest. Can be constant over several days. Has a lack of energy. Sometimes energy is good and sometimes it is bad. Had CTA coronary on 01/28/24 that as negative for CAD. Shortness of Breath with Exertion:Yes, even just walking from a car. If gets out of bed and legs feel jellylike will know it will be a bad day with lack of energy Lightheadedness/dizziness: No Palpitations: Not often, but it will feel like it is racing. CURRENT OUTPATIENT MEDICATIONS: Current Outpatient Medications Medication Sig iv contrast (will be provided with radiology test) MRI Breast [facility] Inject, intravenously, once for 1 dose. No IV access, insert saline lock prior to the beginning of sedation, infusion, injection of imaging exam. Discontinue saline lock post exam. If Pt has a central line or IVAD, may access for administration according to line specific nursing protocol. Once exam is complete flush line and de-access according to line specific nursing protocol in the MR contrast administration guidelines link alendronate (FOSAMAX) 70 mg tablet PLEASE SEE ATTACHED FOR DETAILED DIRECTIONS DHEA vaginal suppository 13 mg (CPD) Unwrap 1 suppository and insert every night in vagina as directed for the first 2 weeks, and then every other day for 2 months. Then twice a week. lisinopril 2.5 mg tablet Take 1 tablet by mouth once daily. cholecalciferol (VITAMIN D) 1,000 unit tab tablet Take 2 tablets by mouth once daily. anastrozole (ARIMIDEX) 1 mg tablet Take 1 tablet by mouth once daily. No current facility-administered medications for this visit. ALLERGIES ALLERGIES Allergen Reactions Seasonal Allergies Other: See Comments PAST FAMILY AND SOCIAL HISTORY FAMILY HISTORY Problem Relation Age of Onset No Known Problems Mother Arthritis Father Heart Attack Father 65 [place] age 65; age 80's Prostate Cancer Father No Known Problems Sister No Known Problems Maternal Grandmother No Known Problems Maternal Grandfather No Known Problems Paternal Grandmother No Known Problems Paternal Grandfather other (Pulmonary Embolus) Daughter No Known Problems Daughter No Known Problems Son No Known Problems Son Social History Tobacco Use Smoking status: Never Smokeless tobacco: Never Vaping Use Vaping status: Never Used Alcohol use: Not Currently Comment: rare Drug use: Never PATIENT ENTERED QUESTIONNAIRE SCORES 07/17/2024 PHQ-9 PHQ-2 Score 1 PHQ-9 Score 4 07/17/2024 05/27/2024 03/08/2024 DONOVAN - 2/7 SCORES DONOVAN-2 Score 1 2 0 DONOVAN-7 Score 4 07/17/2024 Mediterranean Diet Assessment Tool Score 10 (Consistent with a Mediterranean style diet) 07/17/2024 03/26/2024 12/30/2023 PROMIS Global Health - (T-Scores - the mean of general population = 50. Five points is a clinically meaningful difference.) Physical T-Score 42.3 47.7 44.9 Mental T-Score 50.8 53.3 48.3 LIFESTYLE: Tobacco Use: Never DIET Current Diet: Vegan, has been trying to increase protein by adding in some dairy. Compliance: Based on review of the patient's diet history, reported compliance is Regular. Rediness for Change:Maintenance (working to prevent relapse) Barriers: none EXERCISE History: Until 2019 was very active and fit. Was running in the past, but would develop back pain so would stop running. Had hysterectomy in 2019 and then did not do exercise. after about 3 years got energy back and was playing some tennis. Then had mastectomy. Trying in spr (more content not included)... [facility] 06-02-2024 History of Present illness Narrative Images from the original note were not included. [facility] Department of Cardiovascular Medicine SECTION OF PRE[facility]OLOG[facility] Fang Killian 06/02/2024 CHIEF COMPLAINT: Patient presents with: CARD New Patient Consult HISTORY OF PRESENT CARDIOVASCULAR ILLNESS: Fang Killian is a 63 year old female who presents for chest pain. --chest pain weird sensation tightness rated: 8/10 location: mid L chest; L lateral breast symptoms upon waking radiation: none associated symptoms: tightness--no associated symptoms duration: constant over several days, waxing and waning frequency: fall 2023, occurred over period of 2 mos triggers: in retrospect, related to work stressors, son's medical issues; since stressors abated, chest tightness improved occurs when laying flat if awakens at night and upon awakening in the morning hard place in chest when leaning over lack of energy unable to walk fast or far --recently feeling improved, ?reason Denies shortness of breath, dyspnea on exertion, activity limitations, PND, orthopnea, LE edema, palpitations or history of syncope or near-syncope. CARDIAC RISK FACTORS: History question Answer Diagnosis Date Comment Hypertension : Hypertension 2019 Not specified Exercise: One to two per week Family History of CAD: Negative stretching 3-4x/week biking 15 min 1-2x/week, stationary bike planning outdoors biking decreased energy, activity in past yr as recovering from mastectomy for breast CA father [place] age 65 Avg. Sleep Hours Per Night?: 8 STATIN INTOLERANCE: Adverse Effect History of Statin Intolerance:: No Current Statin Freq: None USE OF PCSK9 INHIBITORS: CARDIOVASCULAR DISEASE HISTORY: Valve Disease: Arrhythmias: HEART FAILURE/CARDIOMYOPATHY: RELATED DISEASE HISTORY: History question Answer Diagnosis Date Comment Breast cancer : Breast cancer (HCC) 12/2022 s/p L mastectomy, no chemo, XRT; on anastrazole PAST MEDICAL HISTORY: PAST MEDICAL HISTORY Diagnosis Date Breast cancer (HCC) 12/2022 s/p L mastectomy, no chemo, XRT; on anastrazole Cystocele with prolapse s/p hysterectomy Diverticulitis 03/15/2021 Essential hypertension situational- trying to get off medication Hypertension 2019 Mixed hyperlipidemia Diet Controlled - Vegan Multiple cysts of breast Spider veins of limb Uterine prolapse Vegan diet CURRENT MEDS: Current Outpatient Medications Medication Sig DHEA vaginal suppository 13 mg (CPD) Unwrap 1 suppository and insert every night in vagina as directed for the first 2 weeks, and then every other day for 2 months. Then twice a week. lisinopril 2.5 mg tablet Take 1 tablet by mouth once daily. cholecalciferol (VITAMIN D) 1,000 unit tab tablet Take 2 tablets by mouth once daily. anastrozole (ARIMIDEX) 1 mg tablet Take 1 tablet by mouth once daily. alendronate (FOSAMAX) 70 mg tablet PLEASE SEE ATTACHED FOR DETAILED DIRECTIONS No current facility-administered medications for this visit. 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) Years Of Education Completed: Not specified Marital Status: with 4 children Tobacco use in the last year: No Alcohol Use: Not Currently (rare) REVIEW OF SYSTEMS: positives appear in bold GENERAL:Negative for malaise, significant weight loss or gain and fever, fatigue HEENT:Negative for frequent or significant headaches, significant changes in vision or vision problems, significant ear problems or hearing loss, nasal discharge or nose bleeds and sore throat, difficulty swallowing, mouth lesions NECK:Negative for lumps, goiter, pain and significant neck swelling RESPIRATORY: Negative for cough, wheezing and shortness of breath CARDIOVASCULAR: Negative for chest pain, leg swelling and palpitations GASTROINTESTINAL: Negative for abdominal discomfort, blood in stools or black stools and change in bowel habits GENITOURINARY: Negative for dysuria, frequency and incontinence 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 NEUROLOGIC:Negative for focal numbness or weakness, headaches and dizziness. SKIN:Negative for lesions, rash, and itching. PSYCHIATRIC: Negative for sleep disturbance, mood disorder and recent psychosocial stressors. HEMATOLOGIC/LYMPHATIC/IMMUNOLOGIC: Negative for prolonged bleeding, bruising easily, and swollen nodes. ENDOCRINE: Negative for cold or heat intolerance, polyuria, polydipsia and goiter. PHYSICAL EXAMINATION: BP 134/79 (BP Site: Left Arm, BP Position: Sitting, BP Cuff Size: Regular Adult) Pulse 68 Ht 167.6 cm (5' 6) Wt 63.5 kg (140 lb) SpO2 97% BMI 22.60 kg/m Last Wt 06/02/24 63.5 kg (140 lb) 05/05/24 63.5 kg (139 lb 15.9 oz) 03/29/24 65.3 kg (143 lb 15.4 oz) 03/08/24 64.2 kg (141 lb 8.6 oz) 01/15/24 64.9 kg (143 lb) Gen: pleasant WDWN WF, NARD HEENT: PERRL, conj pink, OP benign neck: 2+ carotids, no bruits, JVP 7 chest: CTA B CV: RRR normal S1, S2; L breast tenderness in site of prior mastectomy (no reconstruction) abd: soft, NTND, normal BS's ext: no edema; 2+ DP/PT pulses neuro: alert, oriented X 3; normal gait CLINICAL TESTING RESULTS: EKG June 02, 2024 reviewed--NSR [address] change, QTc 444; unchanged from 01/08/2023 echo 03/25/2024-- CONCLUSIONS: - Technically difficult exam due to body habitus and left mastectomy. - Exam indication: Hypertension - The left ventricle is normal in size. Left ventricular systolic function is normal. EF = 67 5% (2D biplane). Normal left ventricular diastolic function. - The right ventricle is normal in size. Right ventricular systolic function is normal. - There are no significant valvular abnormalities. - The patient has not had a prior CC echocardiographic exam for comparison. coronary CTA 01/28/2024-- IMPRESSION: NO EVIDENCE OF ATHEROSCLEROTIC CHANGES OR LUMINAL STENOSIS OF THE CORONARY ARTERIES - CAD-RADS 0: No plaque or luminal stenosis. Absence of CAD. - Overall Plaque Sharon: No evidence of plaque LABS: Recent Labs 01/06/24 0715 03/28/23 1202 03/06/22 1641 06/21/20 1229 CHOL 209* 289* 196 242* TG 84 65 72 112 HDL 59 101 65 64 LDL 133* 175* 117* 156* Hemoglobin (g/dL) Date Value 01/06/2024 13.5 06/21/2020 14.3 Hematocrit (%) Date Value 01/06/2024 40.8 06/21/2020 43.5 WBC (k/uL) Date Value 01/06/2024 6.93 06/21/2020 6.81 Platelet Count Date Value Ref Range Status 01/06/2024 216 150 - 400 k/uL Final Creatinine Date Value Ref Range Status 01/06/2024 0.66 0.58 - 0.96 mg/dL Final 10/14/2023 0.63 0.58 - 0.96 mg/dL Final 05/03/2023 0.65 0.58 - 0.96 mg/dL Final 03/28/2023 0.67 0.58 - 0.96 mg/dL Final AST Date Value Ref Range Status 01/06/2024 17 13 - 35 U/L Final ALT Date Value Ref Range Status 01/06/2024 17 7 - 38 U/L Final Glucose (mg/dL) Date Value 01/06/2024 96 10/14/2023 97 05/03/2023 93 03/28/2023 98 01/06/2023 127 06/21/2020 95 Hemoglobin A1C (%) Date Value 03/28/2023 5.3 TSH Date Value Ref Range Status 01/06/2024 1.730 0.270 - 4.200 mIU/L Final No results found for: LPA Interested in learning about research?: Yes PATIENT ENTERED QUESTIONNAIRE SCORES 05/27/2024 PHQ-9 PHQ-2 Score 0 05/27/2024 03/08/2024 12/31/2023 DONOVAN - 2/7 SCORES DONOVAN-2 Score 2 0 3 DONOVAN-7 Score 5 03/26/2024 12/30/2023 09/25/2023 PROMIS Global Health - (T-Scores - the mean of general population = 50. Five points is a clinically meaningful difference.) Physical T-Score 47.7 44.9 44.9 Mental T-Score 53.3 48.3 56 AMBULATORY PATIENT EDUCATION Topic: Chest Pain/Shortness of Breath Hypertension, Exercise, Nutrition, Novel Risk Markers, and Stress Reduction Instruction Provided To: Patient Barriers: None Motivation to Learn: Interested Methods of Instruction: Verbal instruction and/or handouts. Patient Leans Best By: Multiple Methods Patient Verbalized: Understanding IMPRESSION: This consultation was requested by John Bennett DO, and my final recommendations will be communicated back to the requesting physician and primary care provider by way of shared medical record or letter summarizing my evaluation. 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 Bennett for chest pain. Pt reported prolonged recovery following L mastectomy for breast CA in 12/2022; no known cardiac disease. In fall 2023, developed chest tightness symptoms, evaluated with coronary CTA and later with echo, unremarkable, with gradual improvement in symptoms ?corresponding to improved emotional stressors. She reported residual different type of CP symptoms which she wished to discuss. L breast CA s/p mastectomy, no chemo/ZRT (12/2022)--on anastrazole normal coronary arteries (coronary artery CTA 01/2024) hypertension (2019)--initially diagnosed during pre-op for hysterectomy surgery, with BP's up to 180's 05/2024 recent office BP's 120-130's on lisinopril 2.5 qday Last BP 06/02/24 : 134/79 05/05/24 : 134/78 03/29/24 : 130/82 03/08/24 : 129/82 01/28/24 : 106/64 01/15/24 : 124/70 01/02/24 : 143/85 11/21/23 : 134/82 11/07/23 : 114/62 07/03/23 : 125/67 lipids--baseline lipids TC 190-290's, LDL 110-170's, HDL 50-100's never treated. Widely varying lipids ?related to anastrazole, or to changes in diet on and off vegan diet Adverse Effect History of Statin Intolerance:: No Current Statin Freq: None 12/2023 TC 209/LDL 133 untreated symptoms (initial consult 05/2024) --chest pain weird sensation tightness rated: 8/10 location: mid L chest; L lateral breast symptoms upon waking radiation: none associated symptoms: tightness--no associated symptoms duration: constant over several days, waxing and waning frequency: fall 2023, occurred over period of 2 mos triggers: in retrospect, related to work stressors, son's medical issues; since stressors abated, chest tightness improved occurs when laying flat if awakens at night and upon awakening in the morning hard place in chest when leaning over lack of energy unable to walk fast or far --recently feeling improved, ?reason 01/2024 coronary CTA normal coronary arteries, no CAC 03/2024 echo normal LV function lifestyle--diet--mostly vegan. Exercise-- stretching 3-4x/week biking 15 min 1-2x/week, stationary bike planning outdoors biking decreased energy, activity in past yr as recovering from mastectomy for breast CA The 10-year ASCVD risk score (Marycarmen WESTON, et al., 2019) is: 5.9% Values used to calculate the score: Age: 63 years Sex: Female Is Non- : No Diabetic: No Tobacco smoker: No Systolic Blood Pressure: 134 mmHg Is BP treated: Yes HDL Cholesterol: 59 mg/dL Total Cholesterol: 209 mg/dL PLAN: reviewed principles of primary prevention, importance of statin therapy, goal LDL < 100 reviewed chest pain symptoms, testing results; prior episodes of chest tightness ?related to fluctuation in BP, anxiety, since improved; residual atypical chest pain symptoms (upon awakening, in L breast in area of prior mastectomy, likely musculoskeletal), reassurance given consider exercise GXT, Exercise Rx for additional reassurance discussed pros and cons of lipid-lowering therapy, though lower incentive to pursue at this time given CCTA results showing normal coronary arteries with no CAD or CAC encouraged continued low fat diet, increased exercise RTC prn Morelia Mills MD Department of Cardiovascular Medicine documented in this encounter [facility] 06-02-2024 Note HNO ID: [id number] Author: MORELIA MILLS MD Service: ? Author Type: Physician Type: Progress Notes Filed: 06/02/2024 22:22 Note Text: [facility] Department of Cardiovascular Medicine SECTION OF PREVENTIVE CARDIOLOGY Fang Killian 06/02/2024 CHIEF COMPLAINT: Patient presents with: CARD New Patient Consult HISTORY OF PRESENT CARDIOVASCULAR ILLNESS: Fang Killian is a 63 year old female who presents for chest pain. --chest pain weird sensation tightness rated: 8/10 location: mid L chest; L lateral breast symptoms upon waking radiation: none associated symptoms: tightness--no associated symptoms duration: constant over several days, waxing and waning frequency: fall 2023, occurred over period of 2 mos triggers: in retrospect, related to work stressors, son's medical issues; since stressors abated, chest tightness improved occurs when laying flat if awakens at night and upon awakening in the morning hard place in chest when leaning over lack of energy unable to walk fast or far --recently feeling improved, ?reason Denies shortness of breath, dyspnea on exertion, activity limitations, PND, orthopnea, LE edema, palpitations or history of syncope or near-syncope. CARDIAC RISK FACTORS: History question Answer Diagnosis Date Comment Hypertension : Hypertension 2019 Not specified Exercise: One to two per week Family History of CAD: Negative stretching 3-4x/week biking 15 min 1-2x/week, stationary bike planning outdoors biking decreased energy, activity in past yr as recovering from mastectomy for breast CA father [place] age 65 Avg. Sleep Hours Per Night?: 8 STATIN INTOLERANCE: Adverse Effect History of Statin Intolerance:: No Current Statin Freq: None USE OF PCSK9 INHIBITORS: CARDIOVASCULAR DISEASE HISTORY: Valve Disease: Arrhythmias: HEART FAILURE/CARDIOMYOPATHY: RELATED DISEASE HISTORY: History question Answer Diagnosis Date Comment Breast cancer : Breast cancer (HCC) 12/2022 s/p L mastectomy, no chemo, XRT; on anastrazole PAST MEDICAL HISTORY: PAST MEDICAL HISTORY Diagnosis Date Breast cancer (HCC) 12/2022 s/p L mastectomy, no chemo, XRT; on anastrazole Cystocele with prolapse s/p hysterectomy Diverticulitis 03/15/2021 Essential hypertension situational- trying to get off medication Hypertension 2019 Mixed hyperlipidemia Diet Controlled - Vegan Multiple cysts of breast Spider veins of limb Uterine prolapse Vegan diet CURRENT MEDS: Current Outpatient Medications Medication Sig DHEA vaginal suppository 13 mg (CPD) Unwrap 1 suppository and insert every night in vagina as directed for the first 2 weeks, and then every other day for 2 months. Then twice a week. lisinopril 2.5 mg tablet Take 1 tablet by mouth once daily. cholecalciferol (VITAMIN D) 1,000 unit tab tablet Take 2 tablets by mouth once daily. anastrozole (ARIMIDEX) 1 mg tablet Take 1 tablet by mouth once daily. alendronate (FOSAMAX) 70 mg tablet PLEASE SEE ATTACHED FOR DETAILED DIRECTIONS No current facility-administered medications for this visit. 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) Years Of Education Completed: Not specified Marital Status: with 4 children Tobacco use in the last year: No Alcohol Use: Not Currently (rare) REVIEW OF SYSTEMS: positives appear in bold GENERAL:Negative for malaise, significant weight loss or gain and fever, fatigue HEENT:Negative for frequent or significant headaches, significant changes in vision or vision problems, significant ear problems or hearing loss, nasal discharge or nose bleeds and sore throat, difficulty swallowing, mouth lesions NECK:Negative for lumps, goiter, pain and significant neck swelling RESPIRATORY: Negative for cough, wheezing and shortness of breath CARDIOVASCULAR: Negative for chest pain, leg swelling and palpitations GASTROINTESTINAL: Negative for abdominal discomfort, blood in stools or black stools and change in bowel habits GENITOURINARY: Negative for dysuria, frequency and incontinence 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 NEUROLOGIC:Negative for (more content not included)... [facility] 05-31-2024 Telephone encounter Note Images from the original note were not included. Most recent Endocrinology visit: Last encounter Visit on 07/15/2023 (with Petty Lazo) 04/07/2023 in ENDO MAIN with PETTY SHEA for Hypercalcemia 07/15/2023 in ENDO MAIN with PETTY SHEA for Hyperparathyroidism (HCC) No future appt scheduled in ENDO. Please route to local appt/scheduling pool if appt is needed? Requested Prescriptions Pending Prescriptions Disp Refills alendronate (FOSAMAX) 70 mg tablet [Pharmacy Med Name: ALENDRONATE SODIUM 70 MG TAB] 12 tablet 1 Sig: PLEASE SEE ATTACHED FOR DETAILED DIRECTIONS Hemoglobin A1c: None on file in the last 12 months Latest Ref Rng & Units 01/06/2024 05/03/2023 03/28/2023 TSH TSH 0.270 - 4.200 mIU/L 1.730 1.680 1.020 Free T3: None on file in the last 12 months Free T4: None on file in the last 12 months Thyroglobulin: None on file in the last 12 months Latest Ref Rng & Units 10/14/2023 05/03/2023 03/28/2023 Vitamin D Vitamin D 25 Hydroxy 31.0 - 80.0 ng/mL 29.2 50.9 24.9 Vit D1,25 Dihydroxy 19.9 - 79.3 pg/mL 69.9 58.0 64.4 Latest Ref Rng & Units 01/06/2024 03/28/2023 01/06/2023 Hematocrit Hematocrit 36.0 - 46.0 % 40.8 44.0 44.8 Latest Ref Rng & Units 01/06/2024 10/14/2023 05/03/2023 Creatinine Creatinine 0.58 - 0.96 mg/dL 0.66 0.63 0.65 Latest Ref Rng & Units 01/06/2024 10/14/2023 05/03/2023 eGFR EGFR >=60 mL/min/1.73m 99 101 100 Latest Ref Rng & Units 01/06/2024 10/14/2023 05/03/2023 Potassium Potassium 3.7 - 5.1 mmol/L 4.2 4.2 3.9 Testosterone: None on file in the last 12 months IGF: None on file in the last 12 months Prolactin: None on file in the last 12 months [facility] 05-31-2024 Miscellaneous Notes Images from the original note were not included. Most recent Endocrinology visit: Last encounter Visit on 07/15/2023 (with Petty Lazo) 04/07/2023 in ENDO MAIN with PETTY SHEA for Hypercalcemia 07/15/2023 in ENDO MAIN with PETTY SHEA for Hyperparathyroidism (HCC) No future appt scheduled in ENDO. Please route to local appt/scheduling pool if appt is needed? Requested Prescriptions Pending Prescriptions Disp Refills alendronate (FOSAMAX) 70 mg tablet [Pharmacy Med Name: ALENDRONATE SODIUM 70 MG TAB] 12 tablet 1 Sig: PLEASE SEE ATTACHED FOR DETAILED DIRECTIONS Hemoglobin A1c: None on file in the last 12 months Latest Ref Rng & Units 01/06/2024 05/03/2023 03/28/2023 TSH TSH 0.270 - 4.200 mIU/L 1.730 1.680 1.020 Free T3: None on file in the last 12 months Free T4: None on file in the last 12 months Thyroglobulin: None on file in the last 12 months Latest Ref Rng & Units 10/14/2023 05/03/2023 03/28/2023 Vitamin D Vitamin D 25 Hydroxy 31.0 - 80.0 ng/mL 29.2 50.9 24.9 Vit D1,25 Dihydroxy 19.9 - 79.3 pg/mL 69.9 58.0 64.4 Latest Ref Rng & Units 01/06/2024 03/28/2023 01/06/2023 Hematocrit Hematocrit 36.0 - 46.0 % 40.8 44.0 44.8 Latest Ref Rng & Units 01/06/2024 10/14/2023 05/03/2023 Creatinine Creatinine 0.58 - 0.96 mg/dL 0.66 0.63 0.65 Latest Ref Rng & Units 01/06/2024 10/14/2023 05/03/2023 eGFR EGFR >=60 mL/min/1.73m 99 101 100 Latest Ref Rng & Units 01/06/2024 10/14/2023 05/03/2023 Potassium Potassium 3.7 - 5.1 mmol/L 4.2 4.2 3.9 Testosterone: None on file in the last 12 months IGF: None on file in the last 12 months Prolactin: None on file in the last 12 months documented in this encounter [facility] 05-26-2024 Note HNO ID: [id number] Author: JUANY SANDERSON RDMS Service: ? 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 FALL SCREENING: Has the patient had 2 falls in the last year or 1 fall with injury or currently using an Ambulatory Assistive Device (Walker, Cane, Wheelchair, Crutches, etc.)? No PATIENT GENDER DATA: Assigned female at . status: : No status: NO. PATIENT RELEVANT IMPLANT DATA REVIEWED: Not Applicable PATIENT PRESENTS WITH AN IMPLANTABLE OR ATTACHED BENDING MACHINE OPERATOR: No RADIOLOGY DEPARTMENT: Ultrasound PERIPHERAL IV DATA: Not applicable SIGNED BY: Juany Sanderson RDMS RVT May 28, 2024 12:47 PM [facility] 05-26-2024 History of Present illness Narrative Radiology Service Progress Note PATIENT NAME: Fang Killian DATE OF SERVICE: May 26, 2024 TIME: 1:50 PM PATIENT IDENTITY VERIFICATION COMPLETED USING TWO (2) IDENTIFIERS: Name and Date of confirmed by patient verbally. FALL SCREENING: Has the patient had 2 falls in the last year or 1 fall with injury or currently using an Ambulatory Assistive Device (Walker, Cane, Wheelchair, Crutches, etc.)? No PATIENT GENDER DATA: Assigned female at . status: : No status: NO. PATIENT RELEVANT IMPLANT DATA REVIEWED: Not Applicable PATIENT PRESENTS WITH AN IMPLANTABLE OR ATTACHED BENDING MACHINE OPERATOR: No RADIOLOGY DEPARTMENT: Mammography PERIPHERAL IV DATA: Not applicable SIGNED BY: RT Aaron(R) May 26, 2024 1:50 PM documented in this encounter [facility] 05-26-2024 Note HNO ID: [id number] Author: JACINTA LEIJA RT(R) Service: ? Author Type: Technologist Type: Progress Notes Filed: 05/26/2024 13:50 Note Text: Radiology Service Progress Note PATIENT NAME: Fang Killian DATE OF SERVICE: May 26, 2024 TIME: 1:50 PM PATIENT IDENTITY VERIFICATION COMPLETED USING TWO (2) IDENTIFIERS: Name and Date of confirmed by patient verbally. FALL SCREENING: Has the patient had 2 falls in the last year or 1 fall with injury or currently using an Ambulatory Assistive Device (Walker, Cane, Wheelchair, Crutches, etc.)? No PATIENT GENDER DATA: Assigned female at . status: : No status: NO. PATIENT RELEVANT IMPLANT DATA REVIEWED: Not Applicable PATIENT PRESENTS WITH AN IMPLANTABLE OR ATTACHED BENDING MACHINE OPERATOR: No RADIOLOGY DEPARTMENT: Mammography PERIPHERAL IV DATA: Not applicable SIGNED BY: RT Aaron(R) May 26, 2024 1:50 PM [facility] 05-05-2024 Instructions Luz Castillo MD - 05/05/2024 2:03 PM EST BONE MINERAL DENSITY PATIENT INSTRUCTIONS ======= Bone mineral density testing measures the amount of calcium in certain parts of your bones. This information determines how strong your bones are. The test is used to detect osteoporosis, a disease in which the bone's mineral content and density are low, increasing a person's risk of fractures. The lumbar spine (lower back) and the hip are the skeletal sites usually examined. For the test, remember that: 1. You cannot take this test if you are . 2. Eat a normal diet on the day of the test. 3. Take your medications as you normally would. 4. DO NOT take calcium supplements (such as Tums) for 24 hours before the test. 5. On the day of the test, leave valuables (jewelry or credit cards) at home. 6. The test should be performed prior to oral, rectal or IV contrast studies, or at least 7 days after any of these studies. For the test, you may be asked to wear a hospital gown. You will lie on your back, on a padded table, in a comfortable position. Generally, you can resume your usual activities immediately. documented in this encounter [facility] 05-05-2024 Note HNO ID: [id number] Author: LUZ CASTILLO MD Service: ? Author Type: Physician Type: Progress Notes Filed: 05/07/2024 16:48 Note Text: [facility] PATIENT NAME: Fang Killian PCP: No primary care provider on file. DATE: 05/05/2024 Initiated Consultation requested by Dr.Tiffany Sondra GRAY for an opinion regarding vaginal atrophy. 01/2023 Chief Complaint CC: Vaginal dryness/ Atrophy follow up History of Present Illness: 05/05/2024 Subjective: Fang Killian with hx of breats cancer on Arimidex Will re evaluate in 3 years No side effects Hx of GSM overall stable on vaginal DHEA Will change from 4 to 13 mg vaginal DHEA S/p ISAURO due to pelvic prolapse 2019 Still has ovaries Playing pick a ball and its causing recurrence of pelvic prolapse PFPT Henny caicedo helped her a lot Objective: 2022 T score -3.1 01/2023 Fang is a 62 year old who presents for her 2022 noted left breast mass Developed left breats hematoma after first biopsy Second bx identified invasive ductal cancer Left mastectomy 12/2022 Advil and tylenol helping the surgical pain BP is elevated she is on lisinopril Post op visit tomorrow 2019 noted vaginal dryness and dyspareunia No UTI She was on estrace twice a week Not sexually active and only using vaginal estrogen for atrophy 01/15/2023 FINAL DIAGNOSIS A. 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 - Isolated tumor cells in one lymph node. B. Left breast, mastectomy: - Invasive ductal carcinoma, Ene grade 2, 15 mm, negative margins; see comment. - Ductal carcinoma in situ, intermediate nuclear grade, solid pattern, negative margins. - Apocrine metaplasia and columnar cell change. - Biopsy site changes. - Calcifications in association with ductal carcinoma in situ and benign ducts. - Nipple and skin, not involved by carcinoma. - Skeletal muscle, not involved by carcinoma. 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 C. Left breast, lateral margin, excision: Benign breast tissue. Sexually active: No Time with current partner: History of STDS: None Tobacco use? No OB History T4 L4 SAB1 IAB0 Ectopic0 Multiple0 Live Births4 Comment: 4 vaginal deliveries Family history of breast/ovarian/uterine cancer? 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 Patient has had a hysterectomy. CARDIOVASCULAR Lipid AND CV risk assessment: Non smoker, no HTN, HLD, DM, UT, CVA or family hx of early CAD. BONE STATUS Discussed calcium in the diet and take separate oral 2,000 - 5,000 iu vitamin D3 daily Bone mineral density : due Review of Systems: General: Feels well. Denies fatigue, fever, chills, unintentional weight loss/weight gain. Psych: Feels stable, denies anxiety, depression or mood changes. Stress is tolerable. Abdomen: No abdominal pain, nausea, vomiting, diarrhea, or constipation. No bloating, early satiety, indigestion, or increased flatulence. Bladder: No dysuria, gross hematuria, urinary frequency, urinary urgency, or incontinence Breast: No breast lumps, nipple d/c, overlying skin changes, redness or skin retraction Past Medical History: PAST MEDICAL HISTORY Diagnosis Date Breast cancer (HCC) left Cystocele with prolapse s/p hysterectomy Diverticulitis 03/15/2021 Essential hypertension situational- trying to get off medication Mixed hyperlipidemia Diet Controlled - Vegan Multiple cysts of breast Spider veins of limb Uterine prolapse Vegan diet Family History: Family History Problem Relation Age of Onset No Known Problems Mother Arthritis Father Heart Attack Father 65 Prostate Cancer Father No Known Problems Sister No Known Problems Maternal Grandmother No Known Problems Maternal Grandfather No Known Problems Paternal Grandmother No Known Problems Paternal Grandfather other (Pulmonary Embolus) Daughter No Known Problems Daughter No Known Problems Son No Known Problems Son Past Surgical History: PAST SURGICAL HISTORY Procedure Laterality Date COLONOSCOPY 05/2022 Dr. Chirinos, repeat in 10 years per patient COLONOSCOPY GEN ANES 2012 Dr. Chirinos-reportedly negative/normal. MASTECTOMY, SIMPLE, COMPLETE Left 12/2022 TOTAL ABD HYSTERECTOMY+BLAD REPR 11/02/2019 for tx of uterine and bladder prolapse. Social History: Social History Tobacco Use Smoking status: Never Smokeless tobacco: Never Vaping Use Vaping status: Never Used Substance Use Topics Alcohol use: Yes Comment: rare Drug use: Never Allergies: ALLERGIES (more content not included)... [facility] 05-05-2024 History of Present illness Narrative Images from the original note were not included. [facility] PATIENT NAME: Fang Killian PCP: No primary care provider on file. DATE: 05/05/2024 Initiated Consultation requested by Dr.Tiffany Sondra GRAY for an opinion regarding vaginal atrophy. 01/2023 Chief Complaint CC: Vaginal dryness/ Atrophy follow up History of Present Illness: 05/05/2024 Subjective: Fang Killian with hx of breats cancer on Arimidex Will re evaluate in 3 years No side effects Hx of GSM overall stable on vaginal DHEA Will change from 4 to 13 mg vaginal DHEA S/p ISAURO due to pelvic prolapse 2019 Still has ovaries Playing pick a ball and its causing recurrence of pelvic prolapse PFPT Henny caicedo helped her a lot Objective: 2022 T score -3.1 01/2023 Fang is a 62 year old who presents for her 2022 noted left breast mass Developed left breats hematoma after first biopsy Second bx identified invasive ductal cancer Left mastectomy 12/2022 Advil and tylenol helping the surgical pain BP is elevated she is on lisinopril Post op visit tomorrow 2019 noted vaginal dryness and dyspareunia No UTI She was on estrace twice a week Not sexually active and only using vaginal estrogen for atrophy 01/15/2023 FINAL DIAGNOSIS A. 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 - Isolated tumor cells in one lymph node. B. Left breast, mastectomy: - Invasive ductal carcinoma, [place] grade 2, 15 mm, negative margins; see comment. - Ductal carcinoma in situ, intermediate nuclear grade, solid pattern, negative margins. - Apocrine metaplasia and columnar cell change. - Biopsy site changes. - Calcifications in association with ductal carcinoma in situ and benign ducts. - Nipple and skin, not involved by carcinoma. - Skeletal muscle, not involved by carcinoma. 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 C. Left breast, lateral margin, excision: Benign breast tissue. Sexually active: No Time with current partner: History of STDS: None Tobacco use? No OB History T4 L4 SAB1 IAB0 Ectopic0 Multiple0 Live Births4 Comment: 4 vaginal deliveries Family history of breast/ovarian/uterine cancer? No OB HPI OB History T4 L4 SAB1 IAB0 Ectopic0 Multiple0 Live Births4 Comment: 4 vaginal deliveries 18-32 years old [employer] HPI No Hx of endometriosis, fibroids, adenomyosis No Hx of ablation No Hx of D&C No DVT or GB issues No blood transfusion or HIV risk No LMP recorded. Patient has had a hysterectomy. CARDIOVASCULAR Lipid & CV risk assessment: Non smoker, no HTN, HLD, DM, UT, CVA or family hx of early CAD. BONE STATUS Discussed calcium in the diet and take separate oral 2,000 - 5,000 iu vitamin D3 daily Bone mineral density : due Review of Systems: General: Feels well. Denies fatigue, fever, chills, unintentional weight loss/weight gain. Psych: Feels stable, denies anxiety, depression or mood changes. Stress is tolerable. Abdomen: No abdominal pain, nausea, vomiting, diarrhea, or constipation. No bloating, early satiety, indigestion, or increased flatulence. Bladder: No dysuria, gross hematuria, urinary frequency, urinary urgency, or incontinence Breast: No breast lumps, nipple d/c, overlying skin changes, redness or skin retraction Past Medical History: PAST MEDICAL HISTORY Diagnosis Date Breast cancer (HCC) left Cystocele with prolapse s/p hysterectomy Diverticulitis 03/15/2021 Essential hypertension situational- trying to get off medication Mixed hyperlipidemia Diet Controlled - Vegan Multiple cysts of breast Spider veins of limb Uterine prolapse Vegan diet Family History: Family History Problem Relation Age of Onset No Known Problems Mother Arthritis Father Heart Attack Father 65 Prostate Cancer Father No Known Problems Sister No Known Problems Maternal Grandmother No Known Problems Maternal Grandfather No Known Problems Paternal Grandmother No Known Problems Paternal Grandfather other (Pulmonary Embolus) Daughter No Known Problems Daughter No Known Problems Son No Known Problems Son Past Surgical History: PAST SURGICAL HISTORY Procedure Laterality Date COLONOSCOPY 05/2022 Dr. Chirinos, repeat in 10 years per patient COLONOSCOPY GEN ANES 2012 Dr. Chirinos-reportedly negative/normal. MASTECTOMY, SIMPLE, COMPLETE Left 12/2022 TOTAL ABD HYSTERECTOMY+BLAD REPR 11/02/2019 for tx of uterine and bladder prolapse. Social History: Social History Tobacco Use Smoking status: Never Smokeless tobacco: Never Vaping Use Vaping status: Never Used Substance Use Topics Alcohol use: Yes Comment: rare Drug use: Never Allergies: ALLERGIES Allergen Reactions Seasonal Allergies Other: See Comments Allergies updated: Yes Medications: Current Outpatient Medications Medication Sig lisinopril 2.5 mg tablet Take 1 tablet by mouth once daily. cholecalciferol (VITAMIN D) 1,000 unit tab tablet Take 2 tablets by mouth once daily. anastrozole (ARIMIDEX) 1 mg tablet Take 1 tablet by mouth once daily. alendronate (FOSAMAX) 70 mg tablet Take 1 tablet by mouth one time a week. In AM with cup of water on empty stomach. Nothing else by mouth and stay upright for 30 min. DHEA vaginal suppository 13 mg (CPD) Use 1 Suppository vaginally as directed. Unwrap suppository and Insert every night in vagina for the first 2 weeks, and then every other day for 2 months. Then twice a week. No current facility-administered medications for this visit. Medications reviewed in detail and updated PRN. Yes Physical Exam: BP 134/78 Ht 5' 6 (1.676 m) Wt 139 lb 15.9 oz (63.5 kg) BMI 22.60 kg/m PHYSICAL EXAM GENERAL: pleasant female in no apparent distress NECK: Full range of motion, HEAD: normocephalic SKIN: No rashes MOOD: pleasant NEURO: alert and oriented x3 Recent labs/Diagnostic studies: I have thoroughly reviewed this patients previous notes, encounters, labs, and results prior to this visit. Health Maintenance RSV Vaccine(1 - 1-dose 60+ series) Never done Depression Assessment due on 03/24/2022 Influenza Vaccine(1) due on 11/22/2022 Assessment and Plan Discussed in detail the vaginal DHEA and its significance switch to 13mg suppository Sexual health resources shared via [employer] Due for BMD Encounter Diagnosis ICD-10-CM 1. Genitourinary syndrome of menopause N95.8 DHEA vaginal suppository 13 mg (CPD) 2. Localized osteoporosis without current pathological fracture M81.6 DXA-AXIAL SKELETON BD DXA TRABECULAR BONE SCORE (TBS) 3. 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 Encounter for screening for osteoporosis Z13.820 I spent a total of 30 minutes on the date of the service which included preparing to see the patient, [id number] patient care, completing clinical documentation, obtaining and/or reviewing separately obtained history, performing a medically appropriate examination, counseling and educating the patient/family/caregiver, and ordering medications, tests, or procedures. SIGNATURE: Luz Castillo MD PAGER: [phone] CC: No primary care provider on file. via EMR documented in this encounter [facility] 04-07-2024 Telephone encounter Note Pt checking the status of medication below [facility] 04-07-2024 Miscellaneous Notes Pt checking the status of medication below 03/08/2024 Visit date not found Pharmacy calls in requesting the following refill(s): Requested Prescriptions Pending Prescriptions Disp Refills lisinopril 2.5 mg tablet 90 tablet 3 Sig: Take 1 tablet by mouth once daily. documented in this encounter [facility] 04-02-2024 Telephone encounter Note 03/08/2024 Visit date not found Pharmacy calls in requesting the following refill(s): Requested Prescriptions Pending Prescriptions Disp Refills lisinopril 2.5 mg tablet 90 tablet 3 Sig: Take 1 tablet by mouth once daily. [facility] 03-29-2024 History of Present illness Narrative Images from the original note were not included. BREAST MEDICAL ONCOLOGY VISIT NOTE HISTORY AND PHYSICAL EXAMINATION PATIENT NAME: Fang Killian AGE: [age] year old CHIEF COMPLAINT: Breast Cancer as described below: PRIMARY CANCER: left IDC ER 91-100%/ WY 61-70%/ HER2 (2+) by IHC, NEG by FISH Grade 2 Prognostic Stage IA [T1p(15mm by biopsy core length ) N1mi M0 ] breast cancer. Cancer Staging Invasive carcinoma of breast (HCC) Staging form: Breast, AJCC 8th Edition - Clinical stage from 01/06/2023: Stage IA (cT1c, cN0, cM0, G2, ER+, WY+, HER2-) - Signed by Kimberlee Lion MD on 01/06/2023 - Pathologic: Stage IA (pT1c, pN1mi(f), cM0, G2, ER+, WY+, HER2-, Oncotype DX score: 13) - Signed by Kimberlee Lion MD on 03/05/2023 CURRENT TREATMENT: Arimidex started 02/10/23 [No matching plan found] GENETICS: in 12/2022 Declined offer for referral. Has NO FDR with cancers. I think this is just fine. Menopausal status at the time of cancer diagnosis: POST No LMP recorded. Patient has had a hysterectomy. ONCOLOGIC HISTORY: 11/12/22: Screening Mammogram/US reported abnormality in L breast. There is a 1.1 cm x 0.9 cm x 1 cm oval mass with an indistinct margin in the left breast at 12 o'clock anterior depth. Directed ultrasound of the left axilla was negative. There is some ductal dilation near the mass possibly due to obstruction by the mass. 12/20/22: Biopsy reported a 12mm core of LEFT IDC ER 91-100%/ WY 61-70%/ HER2 (2+) by IHC, NEG by FISH Grade 2. 01/15/23: Left Mastectomy noted pT1c(15mm)pN1mi (1micromet of 2mm, 1ist, 5LN examined) 02/07/13: Osteoporosis on DEXA. 02/10/23: Arimidex start 10/2023; smMG noted The right breast is heterogeneously dense, which may obscure small masses. INTERVAL HISTORY: Presents for endocrine therapy toxicity check: She denies arthralgia, mood disturbances, insomnia, hot flashes Vaginal dryness managed with DHEA. Fatigue - ever since mastectomy, has been present but is better during vacation. She will be seeing a psychologist for the first time tomorrow. She is exercising through stretching. Fatigue limits her exercising extra. She is taking vitamin D3. She does eat milk and cheese (was vegan) . Osteoporosis noted 03/2022 and she is on fosamax. Has a tugging that was noted in the right breast. Had a sMMG since then but there was no US. R breast mmg is heterogeneously dense. She is IS NOT open to an MRI 2/2 claustrophobia. Review of Systems: Reviewed and otherwise negative PAST MEDICAL HISTORY Diagnosis Date Breast cancer (HCC) left Cystocele with prolapse s/p hysterectomy Diverticulitis 03/15/2021 Essential hypertension situational- trying to get off medication Mixed hyperlipidemia Diet Controlled - Vegan Multiple cysts of breast Spider veins of limb Uterine prolapse Vegan diet PAST SURGICAL HISTORY Procedure Laterality Date COLONOSCOPY 05/2022 Dr. Chirinos, repeat in 10 years per patient COLONOSCOPY GEN ANES 2012 Dr. Chirinos-reportedly negative/normal. MASTECTOMY, SIMPLE, COMPLETE Left 12/2022 TOTAL ABD HYSTERECTOMY+BLAD REPR 11/02/2019 for tx of uterine and bladder prolapse. Family History Problem Relation Age of Onset No Known Problems Mother Arthritis Father Heart Attack Father 65 Prostate Cancer Father No Known Problems Sister No Known Problems Maternal Grandmother No Known Problems Maternal Grandfather No Known Problems Paternal Grandmother No Known Problems Paternal Grandfather other (Pulmonary Embolus) Daughter No Known Problems Daughter No Known Problems Son No Known Problems Son Social History Tobacco Use Smoking status: Never Smokeless tobacco: Never Vaping Use Vaping status: Never Used Substance Use Topics Alcohol use: Yes Comment: rare Drug use: Never Current Outpatient Medications Medication Sig Dispense Refill anastrozole (ARIMIDEX) 1 mg tablet Take 1 tablet by mouth once daily. 90 tablet 3 metoprolol tartrate, short acting, (LOPRESSOR) 50 mg tablet Take one 50 mg tablet the evening prior to the CTA examination, take another 50 mg tablet the morning of the CTA examination. 2 tablet 0 nitroglycerin sublingual (NITROQUICK) 0.3 mg SL tablet Dissolve 1 tablet under the tongue one time only for 1 dose. To be administered in Radiology for CTA exam 1 tablet 0 alendronate (FOSAMAX) 70 mg tablet Take 1 tablet by mouth one time a week. In AM with cup of water on empty stomach. Nothing else by mouth and stay upright for 30 min. 12 tablet 1 lisinopril 2.5 mg tablet Take 1 tablet by mouth once daily. 90 tablet 3 DHEA vaginal suppository 4 mg (CPD) Unwrap and insert 1 suppository vaginally every other night. 45 Suppository 3 No current facility-administered medications for this visit. ALLERGIES: Seasonal Allergies OBJECTIVE There were no vitals taken for this visit. General: well-appearing, in no acute distress Skin: Skin color, texture, turgor normal, no suspicious rashes or lesions Eyes: Anicteric sclera. Extraocular movements are intact Lungs: Lungs clear to auscultation. No wheezing, rhonchi, rales Heart: RRR without murmur, gallop, rubs noted Abdomen: Abdomen soft, non-tender. Bowel sounds normal. No masses, organomegaly Extremities: No joint swelling, deformity, clubbing, or tenderness in the upper or lower extremities Neuro: generally intact R. Breast: no masses nor axilla LAD L. Breast: surgically absent The sensitive examination was discussed with the Patient or Patient's Authorized Potato Peeler. As applicable, any other physician, advance practice provider, medical student, or other health professional student that will be observing or involved in the sensitive examination for educational or training purposes was discussed with the Patient or Authorized Potato Peeler. The Patient or Authorized Potato Peeler has agreed to proceed with the sensitive examination. (Sensitive examination includes inspection and/or palpation of the breasts, pelvis, prostate and anorectal regions) LABS: NA PATHOLOGY: As above IMAGING: As per above ASSESSMENT: This is a 63 year old female with a diagnosis of stage IA HR+ HER2- breast CA s/p mastectomy. She opted for NO radiation. Arimidex started 02/10/23. She is tolerating endocrine therapy. Cancer Staging Invasive carcinoma of breast (HCC) Staging form: Breast, AJCC 8th Edition - Clinical stage from 01/06/2023: Stage IA (cT1c, cN0, cM0, G2, ER+, WY+, HER2-) - Signed by Kimberlee Lion MD on 01/06/2023 - Pathologic: Stage IA (pT1c, pN1mi(f), cM0, G2, ER+, WY+, HER2-, Oncotype DX score: 13) - Signed by Kimberlee Lion MD on 03/05/2023 PLAN R breast discomfort:will getmmg with US. If benign, will continue with yearly exams. Endocrine Therapy: Continue Arimidex since 01/2023. Continue for 5-10 yrs pending BCI. DEXA 02/07/23 notes osteoporosis. Is following with endocrine. Is on fosamax + Vit D. HOLD OFF on calcium given elevated calcium in blood. Follows with sexual health for vaginal atrophy. Is on DHEA cream, which is effective for her. Hypercalcemia: History of Calcium oxylate in urine. Elevated calcium with normal PTH. Follows with Endocrinology (Dr Sarah Lazo). May get 2nd op to help her determine how to best manage her osteoporosis. RTC 6 mos (09/2024) with IDA. 1. History of breast cancer - ICD9: V10.3, ICD10: Z85.3 (primary diagnosis) 2. Breast pain - ICD9: 611.71, ICD10: N64.4 Appointments for Next 60 Days Date Time Provider Location Dept Phone 03/29/2024 1:30 PM KIMBERLEE LION [facility] [phone] Signed, Kimberlee Lion MD Associate Staff [facility] 03/26/2024 I spent a total of 30 minutes on the date of the service which included preparing to see the patient, [id number] patient care, completing clinical documentation, obtaining and/or reviewing separately obtained history, performing a medically appropriate examination, counseling and educating the patient/family/caregiver, ordering medications, tests, or procedures, and communicating results to the patient/family/caregiver. Additional intake questions: Has the patient had fever, nausea, vomiting, diarrhea, constipation, fatigue for > 1 week? No Does the patient have a decreased appetite? No Does patient want to see a Pigment Pusher? No (yes to any of above refer patient to schedulers for dietitian appointment) ) Does patient have any new or increased numbness or tingling of extremities? No Is patient interested in fertility information? No Does patient need any prescription refills? No Does patient have an advanced directive in place? No, Patient referred to [facility] documented in this encounter [facility] 03-29-2024 Note HNO ID: [id number] Author: KIMBERLEE LION MD Service: ? Author Type: Physician Type: Progress Notes Filed: 03/29/2024 13:54 Note Text: BREAST MEDICAL ONCOLOGY VISIT NOTE HISTORY AND PHYSICAL EXAMINATION PATIENT NAME: Fang Killian AGE: [age] year old CHIEF COMPLAINT: Breast Cancer as described below: PRIMARY CANCER: left IDC ER 91-100%/ WY 61-70%/ HER2 (2+) by IHC, NEG by FISH Grade 2 Prognostic Stage IA [T1p(15mm by biopsy core length ) N1mi M0 ] breast cancer. Cancer Staging Invasive carcinoma of breast (HCC) Staging form: Breast, AJCC 8th Edition - Clinical stage from 01/06/2023: Stage IA (cT1c, cN0, cM0, G2, ER+, WY+, HER2-) - Signed by Kimberlee Lion MD on 01/06/2023 - Pathologic: Stage IA (pT1c, pN1mi(f), cM0, G2, ER+, WY+, HER2-, Oncotype DX score: 13) - Signed by Kimberlee Lion MD on 03/05/2023 CURRENT TREATMENT: Arimidex started 02/10/23 [No matching plan found] GENETICS: in 12/2022 Declined offer for referral. Has NO FDR with cancers. I think this is just fine. Menopausal status at the time of cancer diagnosis: POST No LMP recorded. Patient has had a hysterectomy. ONCOLOGIC HISTORY: 11/12/22: Screening Mammogram/US reported abnormality in L breast. There is a 1.1 cm x 0.9 cm x 1 cm oval mass with an indistinct margin in the left breast at 12 o'clock anterior depth. Directed ultrasound of the left axilla was negative. There is some ductal dilation near the mass possibly due to obstruction by the mass. 12/20/22: Biopsy reported a 12mm core of LEFT IDC ER 91-100%/ WY 61-70%/ HER2 (2+) by IHC, NEG by FISH Grade 2. 01/15/23: Left Mastectomy noted pT1c(15mm)pN1mi (1micromet of 2mm, 1ist, 5LN examined) 02/07/13: Osteoporosis on DEXA. 02/10/23: Arimidex start 10/2023; smMG noted The right breast is heterogeneously dense, which may obscure small masses. INTERVAL HISTORY: Presents for endocrine therapy toxicity check: She denies arthralgia, mood disturbances, insomnia, hot flashes Vaginal dryness managed with DHEA. Fatigue - ever since mastectomy, has been present but is better during vacation. She will be seeing a psychologist for the first time tomorrow. She is exercising through stretching. Fatigue limits her exercising extra. She is taking vitamin D3. She does eat milk and cheese (was vegan) . Osteoporosis noted 03/2022 and she is on fosamax. Has a tugging that was noted in the right breast. Had a sMMG since then but there was no US. R breast mmg is heterogeneously dense. She is IS NOT open to an MRI 2/2 claustrophobia. Review of Systems: Reviewed and otherwise negative PAST MEDICAL HISTORY Diagnosis Date Breast cancer (HCC) left Cystocele with prolapse s/p hysterectomy Diverticulitis 03/15/2021 Essential hypertension situational- trying to get off medication Mixed hyperlipidemia Diet Controlled - Vegan Multiple cysts of breast Spider veins of limb Uterine prolapse Vegan diet PAST SURGICAL HISTORY Procedure Laterality Date COLONOSCOPY 05/2022 Dr. Chirinos, repeat in 10 years per patient COLONOSCOPY GEN ANES 2013 Dr. Chirinos-reportedly negative/normal. MASTECTOMY, SIMPLE, COMPLETE Left 12/2022 TOTAL ABD HYSTERECTOMY+BLAD REPR 11/02/2019 for tx of uterine and bladder prolapse. Family History Problem Relation Age of Onset No Known Problems Mother Arthritis Father Heart Attack Father 65 Prostate Cancer Father No Known Problems Sister No Known Problems Maternal Grandmother No Known Problems Maternal Grandfather No Known Problems Paternal Grandmother No Known Problems Paternal Grandfather other (Pulmonary Embolus) Daughter No Known Problems Daughter No Known Problems Son No Known Problems Son Social History Tobacco Use Smoking status: Never Smokeless tobacco: Never Vaping Use Vaping status: Never Used Substance Use Topics Alcohol use: Yes Comment: rare Drug use: Never Current Outpatient Medications Medication Sig Dispense Refill anastrozole (ARIMIDEX) 1 mg tablet Take 1 tablet by mouth once daily. 90 tablet 3 metoprolol tartrate, short acting, (LOPRESSOR) 50 mg tablet Take one 50 mg tablet the evening prior to the CTA examination, take another 50 mg tablet the morning of the CTA examination. 2 tablet 0 nitroglycerin sublingual (NITROQUICK) 0.3 mg SL tablet Dissolve 1 tablet under the tongue one time only for 1 dose. To be administered in Radiology for CTA exam 1 tablet 0 alendronate (FOSAMAX) 70 mg tablet Take 1 tablet by mouth one time a week. In AM with cup of water on empty stomach. Nothing else by mouth and stay upright for 30 min. 12 tablet 1 lisinopril 2.5 mg tablet Take 1 tablet by mouth once daily. 90 tablet 3 DHEA vaginal suppository 4 mg (CPD) Unwrap and insert 1 suppository vaginally every other night. 45 Suppository 3 No current facility-administered medications for this visit. ALLERGIES: Seasonal Allergies OBJECTIVE There were no vitals (more content not included)... [facility] 03-29-2024 Note HNO ID: [id number] Author: KELLY HUGGINS LPN Service: ? Author Type: LICENSED NURSE Type: Progress Notes Filed: 03/29/2024 13:19 Note Text: Additional intake questions: Has the patient had fever, nausea, vomiting, diarrhea, constipation, fatigue for > 1 week? No Does the patient have a decreased appetite? No Does patient want to see a Pigment Pusher? No (yes to any of above refer patient to schedulers for dietitian appointment) ) Does patient have any new or increased numbness or tingling of extremities? No Is patient interested in fertility information? No Does patient need any prescription refills? No Does patient have an advanced directive in place? No, Patient referred to Resource [facility] Electronically Signed By: Kelly Huggins LPN [facility] 03-08-2024 Note HNO ID: [id number] Author: ROSS SANDERS MD, PhD Service: ? Author Type: Physician Type: Progress Notes Filed: 03/08/2024 15:53 Note Text: Internal Medicine Outpatient Visit March 08, 2024 Preceptor: Dr. Tommy MD, PhD Chief complaint: Follow Up HPI: 63 year old female patient here today for follow up after 10 weeks due to SOB/chest pain that overall improved a lot without major chances. She refers that the stress she had at that time decreased and she is associating the symptoms PMHx - HTN - left breast cancer s/p masectomy 01/13,on anastrozole - recent diagnosis of osteoporosis Allergies: ALLERGIES Allergen Reactions Seasonal Allergies Other: See Comments Active Medications: anastrozole (ARIMIDEX) 1 mg tablet Take 1 tablet by mouth once daily. alendronate (FOSAMAX) 70 mg tablet Take 1 tablet by mouth one time a week. In AM with cup of water on empty stomach. Nothing else by mouth and stay upright for 30 min. lisinopril 2.5 mg tablet Take 1 tablet by mouth once daily. DHEA vaginal suppository 4 mg (CPD) Unwrap and insert 1 suppository vaginally every other night. metoprolol tartrate, short acting, (LOPRESSOR) 50 mg tablet Take one 50 mg tablet the evening prior to the CTA examination, take another 50 mg tablet the morning of the CTA examination. nitroglycerin sublingual (NITROQUICK) 0.3 mg SL tablet Dissolve 1 tablet under the tongue one time only for 1 dose. To be administered in Radiology for CTA exam Past Medical History: PAST MEDICAL HISTORY Diagnosis Date Breast cancer (HCC) left Cystocele with prolapse s/p hysterectomy Diverticulitis 03/15/2021 Essential hypertension situational- trying to get off medication Mixed hyperlipidemia Diet Controlled - Vegan Multiple cysts of breast Spider veins of limb Uterine prolapse Vegan diet Social History: Social History Tobacco Use Smoking status: Never Smokeless tobacco: Never Vaping Use Vaping status: Never Used Substance Use Topics Alcohol use: Yes Comment: rare Drug use: Never Vitals: BP 129/82 Pulse 77 Wt 64.2 kg (141 lb 8.6 oz) BMI 23.19 kg/m? Physical Exam: Physical Exam Constitutional: Appearance: Normal appearance. Cardiovascular: Rate and Rhythm: Normal rate and regular rhythm. Pulmonary: Effort: Pulmonary effort is normal. Abdominal: General: Abdomen is flat. Palpations: Abdomen is soft. Skin: Capillary Refill: Capillary refill takes less than 2 seconds. Neurological: General: No focal deficit present. Mental Status: She is alert and oriented to person, place, and time. Mental status is at baseline. Labs and Imaging Reviewed: Vide below Assessment/Plan: 63 year old female patient here today with plan as follows: ASSESSMENT/PLAN: 1. Mixed hyperlipidemia - ICD9: 272.2, ICD10: E78.2 (primary diagnosis) - TC 209; Triglycerides 84; HDL 59; Non HDL Cholesterol 150; VLDL 17; LDL 133 - The 10-year ASCVD risk score (Marycarmen DK, et al., 2019) is: 5.5% Values used to calculate the score: Age: 63 years Sex: Female Is Non- : No Diabetic: No Tobacco smoker: No Systolic Blood Pressure: 129 mmHg Is BP treated: Yes HDL Cholesterol: 59 mg/dL Total Cholesterol: 209 mg/dL Plan: - Due to low 10-year ASCVD risk score and patient desire, not starting statin - Plan to repeat it in 1 year 2. Screening for depression - ICD9: V79.0, ICD10: Z13.31 - DEPRESSION SCREENING: negative 3. Encounter for screening examination for other mental health and behavioral disorders - ICD9: V79.8, ICD10: Z13.39 - ANXIETY SCREENING: negative 4. Hypertension, unspecified type - ICD9: 401.9, ICD10: I10 - Well controlled on Lisinopril 2.5 mg daily Plan: - Continue lisinopril 5. SOB/Chest Pain, resolved - 10 weeks ago appointment due to new onset SOB/chest pain - CTA Coronary ordered and results from 01/28/24: - NO EVIDENCE OF ATHEROSCLEROTIC CHANGES OR LUMINAL STENOSIS OF THE CORONARY ARTERIES - CAD-RADS 0: No plaque or luminal stenosis. Absence of CAD. - Overall Plaque Sharon: No evidence of plaque Plan: - Due to recent SOB and chest pain and incoming cardiology consult, order EKG and Echo to role out any abnormalities Follow Up Plan: Discussed with patient the importance of continuity of care. I encouraged patient to schedule next appointment within Select Time: 6 months with Bill Eugene MD. Patient prefers to be reached by Select Method: MyChart for results. Other appointments to be scheduled: See patient instructions Bill Eugene MD Internal Medicine Resident, PGY-1 [facility] Staff Physician Note: I have seen and examined the patient. Arrieta elements of the history and physical examination were confirmed by me at the bedside. MY ADDITIONS AND COMMENTS ARE IN CAPITAL LETTERS. I have discussed the findings with both the resident physician and the patient. I agree with the resident physician's note an (more content not included)... [facility] 03-08-2024 History of Present illness Narrative Images from the original note were not included. Internal Medicine Outpatient Visit March 08, 2024 Preceptor: Dr. Tommy MD, PhD Chief complaint: Follow Up HPI: 63 year old female patient here today for follow up after 10 weeks due to SOB/chest pain that overall improved a lot without major chances. She refers that the stress she had at that time decreased and she is associating the symptoms PMHx - HTN - left breast cancer s/p masectomy 01/13,on anastrozole - recent diagnosis of osteoporosis Allergies: ALLERGIES Allergen Reactions Seasonal Allergies Other: See Comments Active Medications: anastrozole (ARIMIDEX) 1 mg tablet Take 1 tablet by mouth once daily. alendronate (FOSAMAX) 70 mg tablet Take 1 tablet by mouth one time a week. In AM with cup of water on empty stomach. Nothing else by mouth and stay upright for 30 min. lisinopril 2.5 mg tablet Take 1 tablet by mouth once daily. DHEA vaginal suppository 4 mg (CPD) Unwrap and insert 1 suppository vaginally every other night. metoprolol tartrate, short acting, (LOPRESSOR) 50 mg tablet Take one 50 mg tablet the evening prior to the CTA examination, take another 50 mg tablet the morning of the CTA examination. nitroglycerin sublingual (NITROQUICK) 0.3 mg SL tablet Dissolve 1 tablet under the tongue one time only for 1 dose. To be administered in Radiology for CTA exam Past Medical History: PAST MEDICAL HISTORY Diagnosis Date Breast cancer (HCC) left Cystocele with prolapse s/p hysterectomy Diverticulitis 03/15/2021 Essential hypertension situational- trying to get off medication Mixed hyperlipidemia Diet Controlled - Vegan Multiple cysts of breast Spider veins of limb Uterine prolapse Vegan diet Social History: Social History Tobacco Use Smoking status: Never Smokeless tobacco: Never Vaping Use Vaping status: Never Used Substance Use Topics Alcohol use: Yes Comment: rare Drug use: Never Vitals: BP 129/82 Pulse 77 Wt 64.2 kg (141 lb 8.6 oz) BMI 23.19 kg/m Physical Exam: Physical Exam Constitutional: Appearance: Normal appearance. Cardiovascular: Rate and Rhythm: Normal rate and regular rhythm. Pulmonary: Effort: Pulmonary effort is normal. Abdominal: General: Abdomen is flat. Palpations: Abdomen is soft. Skin: Capillary Refill: Capillary refill takes less than 2 seconds. Neurological: General: No focal deficit present. Mental Status: She is alert and oriented to person, place, and time. Mental status is at baseline. Labs and Imaging Reviewed: Vide below Assessment/Plan: 63 year old female patient here today with plan as follows: ASSESSMENT/PLAN: 1. Mixed hyperlipidemia - ICD9: 272.2, ICD10: E78.2 (primary diagnosis) - TC 209; Triglycerides 84; HDL 59; Non HDL Cholesterol 150; VLDL 17; LDL 133 - The 10-year ASCVD risk score (Marycarmen WESTON, et al., 2019) is: 5.5% Values used to calculate the score: Age: 63 years Sex: Female Is Non- : No Diabetic: No Tobacco smoker: No Systolic Blood Pressure: 129 mmHg Is BP treated: Yes HDL Cholesterol: 59 mg/dL Total Cholesterol: 209 mg/dL Plan: - Due to low 10-year ASCVD risk score and patient desire, not starting statin - Plan to repeat it in 1 year 2. Screening for depression - ICD9: V79.0, ICD10: Z13.31 - DEPRESSION SCREENING: negative 3. Encounter for screening examination for other mental health and behavioral disorders - ICD9: V79.8, ICD10: Z13.39 - ANXIETY SCREENING: negative 4. Hypertension, unspecified type - ICD9: 401.9, ICD10: I10 - Well controlled on Lisinopril 2.5 mg daily Plan: - Continue lisinopril 5. SOB/Chest Pain, resolved - 10 weeks ago appointment due to new onset SOB/chest pain - CTA Coronary ordered and results from 01/28/24: - NO EVIDENCE OF ATHEROSCLEROTIC CHANGES OR LUMINAL STENOSIS OF THE CORONARY ARTERIES - CAD-RADS 0: No plaque or luminal stenosis. Absence of CAD. - Overall Plaque Sharon: No evidence of plaque Plan: - Due to recent SOB and chest pain and incoming cardiology consult, order EKG and Echo to role out any abnormalities Follow Up Plan: Discussed with patient the importance of continuity of care. I encouraged patient to schedule next appointment within Select Time: 6 months with Bill Eugene MD. Patient prefers to be reached by Select Method: MyChart for results. Other appointments to be scheduled: See patient instructions Bill Eugene MD Internal Medicine Resident, PGY-1 [facility] Staff Physician Note: I have seen and examined the patient. Arrieta elements of the history and physical examination were confirmed by me at the bedside. MY ADDITIONS AND COMMENTS ARE IN CAPITAL LETTERS. I have discussed the findings with both the resident physician and the patient. I agree with the resident physician's note and plan as outlined above. Ross Sanders MD,PhD,FACP documented in this encounter [facility] 02-10-2024 Note HNO ID: [id number] Author: HENNY HENRY, PT Service: ? Author Type: Physical Therapist Type: Progress Notes Filed: 02/10/2024 15:32 Note Text: Episode Visit Count: 2 Therapist That Will Accept/Oversee The Plan Of Care: Henny Gillis Start of Care Date: 01/02/24 Onset Date: 10/23/23 Patient Identified by Name and Date of : Yes REHABILITATION AND SPORTS THERAPY PHYSICAL THERAPY DISCONTINUANCE OF CARE PLAN OF CARE UPDATE: Assessment: Fang Killian is discontinued from Physical Therapy services due to goal achievement and maximal benefit.. Patient was seen for 2 visits from Start of Care Date: 01/02/24 to 02/10/2024 and treatment included: Therapeutic exercise and Self-alf management. Goals for Episode of Care: established 01/02/24 Updated on: 02/10/24 Century in home exercise program.-MET Patient will demonstrate increase in lower abdominal strength to at least 3+/5 during manual muscle testing in order to improve function for leisure / recreation skills and moderate to heavy functional tasks.-MET Patient reports at least 85% improvement in POP symptoms with recreational activities compared to IE.-MET Patient Goals: improve POP symptoms with physical activities SUBJECTIVE: Pt reports getting a pessary and was able to play pickleball without any symptoms. Pt reports no bladder/bowel concerns. Pt good compliance with HEP, has been diligent with core program. Pt reports being pleased with progress, feels comfortable continuing on her own at home. Pain: Pain Pain Level: 0 Post Treatment Pain Post Treatment Pain Level: 0 PROMIS Scales 02/08/2024 12/30/2023 03/20/2023 Higher is Better Phys Func - Score 41 (mild dysfunction) 42 (mild dysfunction) 43 (mild dysfunction) Phys Func - Percentile 18 21 24 Self-Eff Symptom - Score 48 (Average) 49 (Average) 46 (Average) Self-Eff Symptom - Percentile 42 46 34 T-scores: mean of general population = 50. 5 points is clinically meaningfully difference Percentiles provide an indication of how the patient's score ranks in relation to the general population. Higher percentile rankings indicate better function/quality of life. 50th percentile is the average of the general population and indicates half of respondents had a worse score. OBJECTIVE MEASURES WITH LEVEL OF FUNCTION: LE Strength Trunk Strength: Lower Abdominals: 4/5 TREATMENT: Self-Skilled Nursing Management: 1: Reassessment 2: Reviewed importance of consistent use of pessary, especially with higher level activities 3: Reviewed importance of good pressure managment, breathing and bracing PF during functional and recreational tasks 4: Reviewed home core program, discussed gradual progression as tolerated 5: Discussed discharge planning Skilled Intervention: Skilled judgment in the selection of proper modification for activity of daily living/home management based on clinical presentation, deficits, and needs. Billing Self-Care/Home Management Treatment Minutes: 30 Skilled Treatment Time Minutes (timed and untimed codes): 30 Total Session Time (minutes): 30 Session Start Time : 1453 Session Stop Time : 1523 Henny Gillis, PT [facility] 11-19-2024 History of Present illness Narrative Images from the original note were not included. Episode Visit Count: 2 Therapist That Will Accept/Oversee The Plan Of Care: Henny Gillis Start of Care Date: 01/02/24 Onset Date: 10/23/23 Patient Identified by Name and Date of : Yes REHABILITATION AND SPORTS THERAPY PHYSICAL THERAPY DISCONTINUANCE OF CARE PLAN OF CARE UPDATE: Assessment: Fang Killian is discontinued from Physical Therapy services due to goal achievement and maximal benefit.. Patient was seen for 2 visits from Start of Care Date: 01/02/24 to 02/10/2024 and treatment included: Therapeutic exercise and Self-alf management. Goals for Episode of Care: established 01/02/24 Updated on: 02/10/24 Century in home exercise program.-MET Patient will demonstrate increase in lower abdominal strength to at least 3+/5 during manual muscle testing in order to improve function for leisure / recreation skills and moderate to heavy functional tasks.-MET Patient reports at least 85% improvement in POP symptoms with recreational activities compared to IE.-MET Patient Goals: improve POP symptoms with physical activities SUBJECTIVE: Pt reports getting a pessary and was able to play pickleball without any symptoms. Pt reports no bladder/bowel concerns. Pt good compliance with HEP, has been diligent with core program. Pt reports being pleased with progress, feels comfortable continuing on her own at home. Pain: Pain Pain Level: 0 Post Treatment Pain Post Treatment Pain Level: 0 PROMIS Scales 02/08/2024 12/30/2023 03/20/2023 Higher is Better Phys Func - Score 41 (mild dysfunction) 42 (mild dysfunction) 43 (mild dysfunction) Phys Func - Percentile 18 21 24 Self-Eff Symptom - Score 48 (Average) 49 (Average) 46 (Average) Self-Eff Symptom - Percentile 42 46 34 T-scores: mean of general population = 50. 5 points is clinically meaningfully difference Percentiles provide an indication of how the patient's score ranks in relation to the general population. Higher percentile rankings indicate better function/quality of life. 50th percentile is the average of the general population and indicates half of respondents had a worse score. OBJECTIVE MEASURES WITH LEVEL OF FUNCTION: LE Strength Trunk Strength: Lower Abdominals: 4/5 TREATMENT: Self-Skilled Nursing Management: 1: Reassessment 2: Reviewed importance of consistent use of pessary, especially with higher level activities 3: Reviewed importance of good pressure managment, breathing and bracing PF during functional and recreational tasks 4: Reviewed home core program, discussed gradual progression as tolerated 5: Discussed discharge planning Skilled Intervention: Skilled judgment in the selection of proper modification for activity of daily living/home management based on clinical presentation, deficits, and needs. Billing Self-Care/Home Management Treatment Minutes: 30 Skilled Treatment Time Minutes (timed and untimed codes): 30 Total Session Time (minutes): 30 Session Start Time : 1453 Session Stop Time : 1523 Henny Gillis, PT documented in this encounter [facility] 01-28-2024 History of Present illness Narrative Radiology Service Progress Note DATE OF SERVICE: January 28, 2024 TIME: 2:29 PM PATIENT WEIGHT: 143LBS PATIENT IDENTITY VERIFICATION COMPLETED USING TWO (2) STANDARD IDENTIFIERS: Name and Date of confirmed by patient verbally and Name and Date of confirmed by identification band. FALL SCREENING: Has the patient had 2 falls in the last year or 1 fall with injury or currently using an Ambulatory Assistive Device (Walker, Cane, Wheelchair, Crutches, etc.)? No PATIENT GENDER DATA: Female. status: : No status: NO. ALLERGIES: Reviewed and unchanged CONTRAST ALLERGY: No EXAM: CT -CONTRAST INDUCED NEPHROPATHY RISK FACTORS: Patient age > 60 years CREATININE: Creatinine Date Value Ref Range Status 01/06/2024 0.66 0.58 - 0.96 mg/dL Final 10/14/2023 0.63 0.58 - 0.96 mg/dL Final 05/03/2023 0.65 0.58 - 0.96 mg/dL Final Estimated Glomerular Filtration Rate Date Value Ref Range Status 01/06/2024 99 >=60 mL/min/1.73m Final Comment: Estimated Glomerular Filtration Rate (eGFR) is calculated using the 2020 CKD-EPI creatinine equation. This equation utilizes serum creatinine, sex, and age as parameters. The creatinine assay has traceable calibration to isotope dilution-mass spectrometry. Refer to KDIGO guidelines for clinical interpretation. In patients with unstable renal function, e.g. those with acute kidney injury, the eGFR may not accurately reflect actual GFR. eGFR- Date Value Ref Range Status 06/21/2020 >60 Final P.O.C.T. RESULTS: N/A January 28, 2024 TREATMENT: No Hydration needed. IV SITE: Ambulatory: A peripheral IV was started in the Right antecubital site with a Angio cath: 20 gauge. and A Saline lock was inserted per protocol IV SITE APPEARANCE: Clean,Dry and Intact SIGNATURE: Enid Medina RN PATIENT NAME: Fang Killian DATE: January 28, 2024 TIME: 2:29 PM Radiology Service Progress Note PATIENT NAME: Fang Killian DATE OF SERVICE: January 28, 2024 TIME: 2:29 PM PATIENT IDENTITY VERIFICATION COMPLETED USING TWO (2) STANDARD IDENTIFIERS: Name and Date of confirmed by patient verbally and Name and Date of confirmed by identification band. PATIENT GENDER DATA: Female. status: : No status: NO. PATIENT RELEVANT IMPLANT DATA REVIEWED: Yes ALLERGIES: Reviewed and unchanged MEDICATIONS REVIEWED: YES PROCEDURE TYPE: CT: Beta Blocking and CT: NTG SL PATIENT SCREENING: CHF: No, Heart Block: No, Aortic Stenosis: No, Aortic Insufficiency: No, Asthmatic/Bronchospastic Disease: No, IV Beta Blocking (Lopressor/Metoprolol Tartrate): No, and Medications that may enhance heart rate, slowing the effect of betablockers or calcium channel blockers: No Aortic Stenosis: No, Aortic Insufficiency: No, Constrictive Pericarditis: No, Hypertrophic/Restrictive Cardiomyopathy: No, Use of Phosphodiesterase - 5 Inhibitors: No, and Stress test planned for later today: No IV SITE: Ambulatory: A peripheral IV was started in the Right antecubital site with a Angio cath: 20 gauge. and A Saline lock was inserted per protocol PERIPHERAL IV ACCESS: Discontinued CARDIAC MEDICATIONS: Nitroglycerin 0.3 mg SL given PATIENT DISCHARGED TO: Home/Self Care SIGNED BY: Enid Medina RN January 28, 2024 2:29 PM PATIENT EDUCATION RADIOLOGY TOPIC: Procedure/Surgery: Coronary CTA READINESS TO LEARN COGNITIVE ABILITY: Alert and oriented MOTIVATION TO LEARN: Interested FAMILY SUPPORT: Unable to assess - Family not present INSTRUCTION PROVIDED TO: Patient PATIENT LEARNS BEST BY: Multiple Methods FACTORS AFFECTING LEARNING: None PHYSICAL LIMITATIONS AFFECTING LEARNING: None LEARNING RESPONSE Procedure: Angio Procedures: Radiology Procedures: Coronary CTA METHOD OF INSTRUCTION: Individual instruction PATIENT / FAMILY RESPONSE: Verbalizes understanding of: Pre Procedure Instructions Post Procedure Instructions FOLLOW-UP PLAN: Complete - No need for follow-up REFERRAL (RECOMMENDATION): None Radiology Service Progress Note PATIENT NAME: Fang Killian DATE OF SERVICE: January 28, 2024 TIME: 2:57 PM PATIENT IDENTITY VERIFICATION COMPLETED USING TWO (2) IDENTIFIERS: Name and Date of confirmed by patient verbally. FALL SCREENING: Has the patient had 2 falls in the last year or 1 fall with injury or currently using an Ambulatory Assistive Device (Walker, Cane, Wheelchair, Crutches, etc.)? No PATIENT GENDER DATA: Female. status: : No status: NO. PATIENT RELEVANT IMPLANT DATA REVIEWED: Yes PATIENT PRESENTS WITH AN IMPLANTABLE OR ATTACHED BENDING MACHINE OPERATOR: No RADIOLOGY DEPARTMENT: CT; Exam(s) Completed: CTA Cardiac PERIPHERAL IV DATA: Site assessment: Clean,Dry and Intact, Site disposition Discontinued SIGNED BY: RT Betsy(Bethany) January 28, 2024 2:57 PM documented in this encounter [facility] 01-28-2024 Note HNO ID: [id number] Author: FOZIA SIMPSON RT(R) Service: Radiology Author Type: Technologist Type: Progress Notes Filed: 01/28/2024 14:57 Note Text: Radiology Service Progress Note PATIENT NAME: Fang Killian DATE OF SERVICE: January 28, 2024 TIME: 2:57 PM PATIENT IDENTITY VERIFICATION COMPLETED USING TWO (2) IDENTIFIERS: Name and Date of confirmed by patient verbally. FALL SCREENING: Has the patient had 2 falls in the last year or 1 fall with injury or currently using an Ambulatory Assistive Device (Walker, Cane, Wheelchair, Crutches, etc.)? No PATIENT GENDER DATA: Female. status: : No status: NO. PATIENT RELEVANT IMPLANT DATA REVIEWED: Yes PATIENT PRESENTS WITH AN IMPLANTABLE OR ATTACHED BENDING MACHINE OPERATOR: No RADIOLOGY DEPARTMENT: CT; Exam(s) Completed: CTA Cardiac PERIPHERAL IV DATA: Site assessment: Clean,Dry and Intact, Site disposition Discontinued SIGNED BY: Fozia Simpson RT(R) January 28, 2024 2:57 PM [facility] 01-28-2024 Note HNO ID: [id number] Author: ENID MEDINA RN Service: Radiology Author Type: Registered Nurse Type: Progress Notes Filed: 01/28/2024 14:39 Note Text: Radiology Service Progress Note DATE OF SERVICE: January 28, 2024 TIME: 2:29 PM PATIENT WEIGHT: 143LBS PATIENT IDENTITY VERIFICATION COMPLETED USING TWO (2) STANDARD IDENTIFIERS: Name and Date of confirmed by patient verbally and Name and Date of confirmed by identification band. FALL SCREENING: Has the patient had 2 falls in the last year or 1 fall with injury or currently using an Ambulatory Assistive Device (Walker, Cane, Wheelchair, Crutches, etc.)? No PATIENT GENDER DATA: Female. status: : No status: NO. ALLERGIES: Reviewed and unchanged CONTRAST ALLERGY: No EXAM: CT -CONTRAST INDUCED NEPHROPATHY RISK FACTORS: Patient age > 60 years CREATININE: Creatinine Date Value Ref Range Status 01/06/2024 0.66 0.58 - 0.96 mg/dL Final 10/14/2023 0.63 0.58 - 0.96 mg/dL Final 05/03/2023 0.65 0.58 - 0.96 mg/dL Final Estimated Glomerular Filtration Rate Date Value Ref Range Status 01/06/2024 99 >=60 mL/min/1.73m? Final Comment: Estimated Glomerular Filtration Rate (eGFR) is calculated using the 2020 CKD-EPI creatinine equation. This equation utilizes serum creatinine, sex, and age as parameters. The creatinine assay has traceable calibration to isotope dilution-mass spectrometry. Refer to KDIGO guidelines for clinical interpretation. In patients with unstable renal function, e.g. those with acute kidney injury, the eGFR may not accurately reflect actual GFR. eGFR- Date Value Ref Range Status 06/21/2020 >60 Final P.O.C.T. RESULTS: N/A January 28, 2024 TREATMENT: No Hydration needed. IV SITE: Ambulatory: A peripheral IV was started in the Right antecubital site with a Angio cath: 20 gauge. and A Saline lock was inserted per protocol IV SITE APPEARANCE: Clean,Dry and Intact SIGNATURE: Enid Medina RN PATIENT NAME: Fang Killian DATE: January 28, 2024 TIME: 2:29 PM Radiology Service Progress Note PATIENT NAME: Fang Killian DATE OF SERVICE: January 28, 2024 TIME: 2:29 PM PATIENT IDENTITY VERIFICATION COMPLETED USING TWO (2) STANDARD IDENTIFIERS: Name and Date of confirmed by patient verbally and Name and Date of confirmed by identification band. PATIENT GENDER DATA: Female. status: : No status: NO. PATIENT RELEVANT IMPLANT DATA REVIEWED: Yes ALLERGIES: Reviewed and unchanged MEDICATIONS REVIEWED: YES PROCEDURE TYPE: CT: Beta Blocking and CT: NTG SL PATIENT SCREENING: CHF: No, Heart Block: No, Aortic Stenosis: No, Aortic Insufficiency: No, Asthmatic/Bronchospastic Disease: No, IV Beta Blocking (Lopressor/Metoprolol Tartrate): No, and Medications that may enhance heart rate, slowing the effect of betablockers or calcium channel blockers: No Aortic Stenosis: No, Aortic Insufficiency: No, Constrictive Pericarditis: No, Hypertrophic/Restrictive Cardiomyopathy: No, Use of Phosphodiesterase - 5 Inhibitors: No, and Stress test planned for later today: No IV SITE: Ambulatory: A peripheral IV was started in the Right antecubital site with a Angio cath: 20 gauge. and A Saline lock was inserted per protocol PERIPHERAL IV ACCESS: Discontinued CARDIAC MEDICATIONS: Nitroglycerin 0.3 mg SL given PATIENT DISCHARGED TO: Home/Self Care SIGNED BY: Enid Medina RN January 28, 2024 2:29 PM PATIENT EDUCATION RADIOLOGY TOPIC: Procedure/Surgery: Coronary CTA READINESS TO LEARN COGNITIVE ABILITY: Alert and oriented MOTIVATION TO LEARN: Interested FAMILY SUPPORT: Unable to assess - Family not present INSTRUCTION PROVIDED TO: Patient PATIENT LEARNS BEST BY: Multiple Methods FACTORS AFFECTING LEARNING: None PHYSICAL LIMITATIONS AFFECTING LEARNING: None LEARNING RESPONSE Procedure: Angio Procedures: Radiology Procedures: Coronary CTA METHOD OF INSTRUCTION: Individual instruction PATIENT / FAMILY RESPONSE: Verbalizes understanding of: Pre Procedure Instructions Post Procedure Instructions FOLLOW-UP PLAN: Complete - No need for follow-up REFERRAL (RECOMMENDATION): None Electronically Signed By Enid Medina RN [facility] 01-15-2024 Note HNO ID: [id number] Author: MK SCOTT MD Service: ? Author Type: Physician Type: Progress Notes Filed: 01/15/2024 13:34 Note Text: Patient declined keg filler. Fang Killian presents today for pessary insertion for FAIZAN. The alternatives, risks, benefits, and potential complications have been reviewed with the patient. The patient states an understanding of RBAP and consents to proceed with the procedure. A size 4 pessary (ring with support) pessary was inserted, patient tolerated the procedure well and the device is comfortable. She demonstrated appropriate insertion and removal of the pessary as well as proper use and care. Mk Scott MD Faizan [facility] 01-15-2024 History of Present illness Narrative Patient declined keg filler. Fang Killian presents today for pessary insertion for FAIZAN. The alternatives, risks, benefits, and potential complications have been reviewed with the patient. The patient states an understanding of RBAP and consents to proceed with the procedure. A size 4 pessary (ring with support) pessary was inserted, patient tolerated the procedure well and the device is comfortable. She demonstrated appropriate insertion and removal of the pessary as well as proper use and care. Mk Scott MD Faizan documented in this encounter [facility] 01-12-2024 History of Present illness Narrative Radiology Service Progress Note PATIENT NAME: Fang Killian DATE OF SERVICE: January 12, 2024 TIME: 12:33 PM PATIENT IDENTITY VERIFICATION COMPLETED USING TWO (2) IDENTIFIERS: Name and Date of confirmed by patient verbally. FALL SCREENING: Has the patient had 2 falls in the last year or 1 fall with injury or currently using an Ambulatory Assistive Device (Walker, Cane, Wheelchair, Crutches, etc.)? No PATIENT GENDER DATA: Female. status: : No status: NO. PATIENT RELEVANT IMPLANT DATA REVIEWED: Yes PATIENT PRESENTS WITH AN IMPLANTABLE OR ATTACHED BENDING MACHINE OPERATOR: No RADIOLOGY DEPARTMENT: General X-ray: Exam(s) Completed: Chest X-Ray PERIPHERAL IV DATA: Not applicable SIGNED BY: RT Jennifer(R) January 12, 2024 12:33 PM documented in this encounter [facility] 01-12-2024 Note HNO ID: [id number] Author: BALJIT BALDERRAMA RT(R) Service: Radiology Author Type: Technologist Type: Progress Notes Filed: 01/12/2024 12:42 Note Text: Radiology Service Progress Note PATIENT NAME: aFng Killian DATE OF SERVICE: January 12, 2024 TIME: 12:33 PM PATIENT IDENTITY VERIFICATION COMPLETED USING TWO (2) IDENTIFIERS: Name and Date of confirmed by patient verbally. FALL SCREENING: Has the patient had 2 falls in the last year or 1 fall with injury or currently using an Ambulatory Assistive Device (Walker, Cane, Wheelchair, Crutches, etc.)? No PATIENT GENDER DATA: Female. status: : No status: NO. PATIENT RELEVANT IMPLANT DATA REVIEWED: Yes PATIENT PRESENTS WITH AN IMPLANTABLE OR ATTACHED BENDING MACHINE OPERATOR: No RADIOLOGY DEPARTMENT: General X-ray: Exam(s) Completed: Chest X-Ray PERIPHERAL IV DATA: Not applicable SIGNED BY: RT Jennifer(R) January 12, 2024 12:33 PM [facility] 01-02-2024 Nurse Note Assessment interrupted by medical provider, unable to complete nursing assessment. Bryan Sinclair MA January 02, 2024 2:59 PM [facility] 01-02-2024 Nurse Note Assessment interrupted by medical provider, unable to complete nursing assessment. Bryan Sinclair MA January 02, 2024 2:59 PM documented in this encounter [facility] 01-02-2024 Note HNO ID: [id number] Author: JOHN BENNETT, DO Service: ? Author Type: Physician Type: Progress Notes Filed: 01/21/2024 11:09 Note Text: Internal Medicine Outpatient Visit January 02, 2024 Preceptor: Dr. John Bennett HPI: 63 year old female patient here today for evaluation of SOB and chest tightness. PMHx: - HTN - left breast cancer s/p masectomy 01/13,on anastrozole - recent diagnosis of osteoporosis - hypercalcemia (resolved)/kidney lesions Allergies: ALLERGIES Allergen Reactions Seasonal Allergies Other: See Comments Active Medications: alendronate (FOSAMAX) 70 mg tablet Take 1 tablet by mouth one time a week. In AM with cup of water on empty stomach. Nothing else by mouth and stay upright for 30 min. lisinopril 2.5 mg tablet Take 1 tablet by mouth once daily. anastrozole (ARIMIDEX) 1 mg tablet Take 1 tablet by mouth once daily. DHEA vaginal suppository 4 mg (CPD) Unwrap and insert 1 suppository vaginally every other night. Past Medical History: PAST MEDICAL HISTORY Diagnosis Date Breast cancer (HCC) left Cystocele with prolapse s/p hysterectomy Diverticulitis 03/15/2021 Essential hypertension situational- trying to get off medication Mixed hyperlipidemia Diet Controlled - Vegan Multiple cysts of breast Spider veins of limb Uterine prolapse Vegan diet Social History: Social History Tobacco Use Smoking status: Never Smokeless tobacco: Never Vaping Use Vaping status: Never Used Substance Use Topics Alcohol use: Yes Comment: rare Drug use: Never Vitals: BP 143/85 Pulse 80 Wt 65.2 kg (143 lb 11.8 oz) BMI 23.56 kg/m? Physical Exam: Physical Exam Constitutional: Appearance: Normal appearance. HENT: Head: Normocephalic. Eyes: Pupils: Pupils are equal, round, and reactive to light. Cardiovascular: Rate and Rhythm: Normal rate and regular rhythm. Pulmonary: Effort: Pulmonary effort is normal. Breath sounds: Normal breath sounds. Abdominal: General: Bowel sounds are normal. Palpations: Abdomen is soft. Musculoskeletal: Cervical back: Normal range of motion. Skin: General: Skin is warm. Capillary Refill: Capillary refill takes less than 2 seconds. Neurological: General: No focal deficit present. Mental Status: She is alert and oriented to person, place, and time. Psychiatric: Mood and Affect: Mood normal. Behavior: Behavior normal. Labs and Imaging Reviewed: - Lipid panel with high LDL and HDL Assessment/Plan: 63 year old female patient here today with plan as follows: SOB/Chest tightness - Started after surgery 01/13 - Unable to exercise as before - Chest tightness associated with SOB - Still able to work 4h/day -overall her symptoms to appear to be exertional and could be an anginal equivalent. She has no personal hx of coronary disease but given the nature of he symptoms would warrant further testing which we discussed EKG Stress Treadmill vs CCTA. Ultimately opted for CCTA which was ordered but not yet completed by the patient. Plan: - EKG now - CTA coronary test - Lipid panel, CMP, CBC - CXR - Consult to cardiology - Close f/u (after labs/image) 2. HTN - Lisinopril 2.5 mg daily - Controlled Plan: - Continue current dose for now 3. left breast cancer s/p masectomy 01/13,on anastrozole - Continue f/u with Hem/Onc Follow Up Plan: Discussed with patient the importance of continuity of care. I encouraged patient to schedule next appointment within Select Time: 10 weeks with Bill Eugene MD. Patient prefers to be reached by Select Method: MyChart for results. Other appointments to be scheduled: See patient instructions Bill Eugene MD Internal Medicine Resident, PGY-1 [facility] Chart reviewed, patient examined and arrieta elements personally verified with patient and resident. The note includes my findings, plans and recommendations. Arrieta elements of history and physical examination of the patient confirmed with patient and resident. I reviewed Dr. Eugene's note, examined the patient and agree with the documented findings and plan of care. My changes/additions to the note are marked in italics. John Bennett DO [facility] 01-02-2024 History of Present illness Narrative Images from the original note were not included. Internal Medicine Outpatient Visit January 02, 2024 Preceptor: Dr. John Bennett HPI: 63 year old female patient here today for evaluation of SOB and chest tightness. PMHx: - HTN - left breast cancer s/p masectomy 01/13,on anastrozole - recent diagnosis of osteoporosis - hypercalcemia (resolved)/kidney lesions Allergies: ALLERGIES Allergen Reactions Seasonal Allergies Other: See Comments Active Medications: alendronate (FOSAMAX) 70 mg tablet Take 1 tablet by mouth one time a week. In AM with cup of water on empty stomach. Nothing else by mouth and stay upright for 30 min. lisinopril 2.5 mg tablet Take 1 tablet by mouth once daily. anastrozole (ARIMIDEX) 1 mg tablet Take 1 tablet by mouth once daily. DHEA vaginal suppository 4 mg (CPD) Unwrap and insert 1 suppository vaginally every other night. Past Medical History: PAST MEDICAL HISTORY Diagnosis Date Breast cancer (HCC) left Cystocele with prolapse s/p hysterectomy Diverticulitis 03/15/2021 Essential hypertension situational- trying to get off medication Mixed hyperlipidemia Diet Controlled - Vegan Multiple cysts of breast Spider veins of limb Uterine prolapse Vegan diet Social History: Social History Tobacco Use Smoking status: Never Smokeless tobacco: Never Vaping Use Vaping status: Never Used Substance Use Topics Alcohol use: Yes Comment: rare Drug use: Never Vitals: BP 143/85 Pulse 80 Wt 65.2 kg (143 lb 11.8 oz) BMI 23.56 kg/m Physical Exam: Physical Exam Constitutional: Appearance: Normal appearance. HENT: Head: Normocephalic. Eyes: Pupils: Pupils are equal, round, and reactive to light. Cardiovascular: Rate and Rhythm: Normal rate and regular rhythm. Pulmonary: Effort: Pulmonary effort is normal. Breath sounds: Normal breath sounds. Abdominal: General: Bowel sounds are normal. Palpations: Abdomen is soft. Musculoskeletal: Cervical back: Normal range of motion. Skin: General: Skin is warm. Capillary Refill: Capillary refill takes less than 2 seconds. Neurological: General: No focal deficit present. Mental Status: She is alert and oriented to person, place, and time. Psychiatric: Mood and Affect: Mood normal. Behavior: Behavior normal. Labs and Imaging Reviewed: - Lipid panel with high LDL and HDL Assessment/Plan: 63 year old female patient here today with plan as follows: SOB/Chest tightness - Started after surgery 01/13 - Unable to exercise as before - Chest tightness associated with SOB - Still able to work 4h/day -overall her symptoms to appear to be exertional and could be an anginal equivalent. She has no personal hx of coronary disease but given the nature of he symptoms would warrant further testing which we discussed EKG Stress Treadmill vs CCTA. Ultimately opted for CCTA which was ordered but not yet completed by the patient. Plan: - EKG now - CTA coronary test - Lipid panel, CMP, CBC - CXR - Consult to cardiology - Close f/u (after labs/image) 2. HTN - Lisinopril 2.5 mg daily - Controlled Plan: - Continue current dose for now 3. left breast cancer s/p masectomy 01/13,on anastrozole - Continue f/u with Hem/Onc Follow Up Plan: Discussed with patient the importance of continuity of care. I encouraged patient to schedule next appointment within Select Time: 10 weeks with Bill Eugene MD. Patient prefers to be reached by Select Method: MyChart for results. Other appointments to be scheduled: See patient instructions Bill Eugene MD Internal Medicine Resident, PGY-1 [facility] Chart reviewed, patient examined and arrieta elements personally verified with patient and resident. The note includes my findings, plans and recommendations. Arrieta elements of history and physical examination of the patient confirmed with patient and resident. I reviewed Dr. Eugene's note, examined the patient and agree with the documented findings and plan of care. My changes/additions to the note are marked in italics. John Bennett DO documented in this encounter [facility] 01-02-2024 History of Present illness Narrative Program_[email or web address]:[id number] Access Code: [email or web address] URL: [email or web address] Date: 01-02-2024 Prepared By: Henny Program Notes Exercises - Seated Pelvic Floor Contraction - 1 x daily - x weekly - 3 sets - 10 reps - Seated Pelvic Floor Contraction - 1 x daily - x weekly - 2 sets - 10 reps - Double Leg Hamstring Stretch at Wall - 1 x daily - x weekly - 3 sets - reps Images from the original note were not included. Episode Visit Count: 1 Therapist That Will Accept/Oversee The Plan Of Care: Henny Gillis Start of Care Date: 01/02/24 Onset Date: 10/23/23 Patient Identified by Name and Date of : Yes REHABILITATION AND SPORTS THERAPY PHYSICAL THERAPY EVALUATION PLAN OF CARE: Assessment: Fang Killian presents with chief complaint of intermittent POP symptoms that interferes with physical activities . She denies any bladder, bowel, or pelvic pain symptoms. The patient presents with impairments in decreased core strength. PROMIS (Patient-Reported Outcomes Measurement Information System) scores were reviewed and identified as a rehabilitation concern. Prognosis for therapy is Excellent due to: current objective clinical presentation, positive past response to therapy . The patient will benefit from skilled therapy services to meet the goals established for this plan of care as noted below. Goals for Episode of Care: established 01/02/24 Century in home exercise program. Patient will demonstrate increase in lower abdominal strength to at least 3+/5 during manual muscle testing in order to improve function for leisure / recreation skills and moderate to heavy functional tasks. Patient reports at least 85% improvement in POP symptoms with recreational activities compared to IE. Patient Goals: improve POP symptoms with physical activities Time Frame for Goals and Treatment : 03/02/24 Planned Interventions, Frequency, and Duration: Current Frequency: 1x/month Duration: 4 weeks (reassess at 4 weeks and progress as indicated) Total Number of Visits Planned: 1 Planned Treatment Interventions: Therapeutic exercise (38823), Neuromuscular re-education (92266), Manual therapy (94566), Self-alf management (66742), Patient/Family/Caregiver Education PLAN FOR NEXT VISIT: recheck in 1 month Patient demonstrates good understanding of plan of care and treatment. The above goals and plan of care were discussed and agreed upon by patient/family. SUBJECTIVE: Pt reports POP felt great since PFPT episode last year up until a couple months ago when playing pickleball. Pt reports being fitted for a pessary and plans to use it when being more active, waiting for pessary to come in stock. Pt reports she only has POP symptoms with high level recreational activities, no symptoms with ADLs. Pt denies any bladder, bowel, or pelvic pain concerns. Pt reports good compliance with HEP, states she started an online program for core strengthening to help with DR and is doing a lot of pelvic floor and core exercises. Patient Goals: improve POP symptoms with physical activities Functional Limitations: physical activities Prior Level of Function: Independent without limitations PAST MEDICAL HISTORY Diagnosis Date Breast cancer (HCC) left Cystocele with prolapse s/p hysterectomy Diverticulitis 03/15/2021 Essential hypertension situational- trying to get off medication Mixed hyperlipidemia Diet Controlled - Vegan Multiple cysts of breast Spider veins of limb Uterine prolapse Vegan diet PAST SURGICAL HISTORY Procedure Laterality Date COLONOSCOPY 05/2022 Dr. Chirinos, repeat in 10 years per patient COLONOSCOPY GEN ANES 2012 Dr. Chirinos-reportedly negative/normal. MASTECTOMY, SIMPLE, COMPLETE Left 12/2022 TOTAL ABD HYSTERECTOMY+BLAD REPR 11/02/2019 for tx of uterine and bladder prolapse. 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 Recreation / Current Exercise: pickleball Intake Information: Prescription present Previous Treatment: Pelvic Floor Physical Therapy Falls Interview: No positive findings with falls interview Aquatic Screen: No Pain: Pain Pain Level: 0 Post Treatment Pain Post Treatment Pain Level: 0 PROMIS Scales 12/30/2023 03/20/2023 02/10/2023 Higher is Better Phys Func - Score 42 (mild dysfunction) 43 (mild dysfunction) 29 (severe dysfunction) Phys Func - Percentile 21 24 2 Self-Eff Symptom - Score 49 (Average) 46 (Average) 34 (Low) Self-Eff Symptom - Percentile 46 34 5 T-scores: mean of general population = 50. 5 points is clinically meaningfully difference Percentiles provide an indication of how the patient's score ranks in relation to the general population. Higher percentile rankings indicate better function/quality of life. 50th percentile is the average of the general population and indicates half of respondents had a worse score. OBJECTIVE MEASURES WITH LEVEL OF FUNCTION: Pelvic Floor Pregnancies: 5 Births: 4 Vaginal Delivery: Standard Pain with penetration: Not sexually active, No Urinary/Bowel History : Urinary History, Bowel History Difficulty starting stream: No Incomplete emptying: No Stress Incontinence: No Urgency: No Nocturia (times per night) : 1 Daytime Frequency (hours): 2 Fluid Intake: Tea, Coffee, Water Water : 40 oz/day Coffee: 8 oz/day Tea : 8 oz/day Difficulty evacuating / Excessive Straining: No Incomplete emptying: No Bowel Movement Frequency: 1x/day Fecal incontinence: No Pelvic Floor Muscle Assessment Consent for pelvic assessment/testing and treatment: Patient was educated regarding pelvic floor physical therapy assessment/treatment which may include pelvic floor and girdle muscle assessment externally or internally (vaginal or rectal approach)., Patient verbalized consent for the above treatment approaches today. Patient understands they have control of the treatment and an opportunity to stop treatment at any time. Pelvic Floor Muscle Assessment: PERFECT, Muscle Dynamics Power: 3 Endurance: 10 Fast Reps: 10 Contracton Pressure: Moderate squeeze, felt all the way around finger surface Duration of Contraction: >3 seconds Recruitment of pelvic floor muscles: Coordinated Range of Motion: Normal Ability to Lengthen pelvic floor: Yes Diastasis Rectus Abdominis: Above Umbilicus, At Umbilicus, Below Umbilicus Above Umbilicus (fingerwidth separation): 2 At Umbilicus (fingerwidth separation): 2 Below Umbilicus (fingerwidth separation): 1 Pelvic Floor Manual Assessment Pelvic Floor Tenderness/Hyperactivity: Tested Vaginally in Tested Vaginally in : Supine/hooklying (No restrictions/tenderness noted.) LE AROM R LE AROM: WFL L LE AROM: WFL LE Flexibility Flexibility: Hamstring Flexibility, Hip Adductor, Hip Internal Rotation Flexibility, Hip External Rotation Flexibility R Hamstring Flexibility: WNL L Hamstring Flexibility: WNL R Adductor Flexibility: WNL L Adductor Flexibility: WNL R Hip Internal Rotation Flexibility: WNL L Hip Internal Rotation Flexibility: WNL R Hip External Rotation Flexibility: WNL L Hip External Rotation Flexibility: WNL LE Strength Trunk Strength: Lower Abdominals: 3/5 R LE Strength: 5/5 L LE Strength: 5/5 Education: Education Learning Preferences: Demonstration, Explanation, Performance, Printed Materials Barriers: None Learning/educational needs: Home exercise program, Plan of Care Education Provided: Yes, see treatment interventions for education provided Education Provided To: Patient Education Mode/Type: Demonstration, Explanation/Discussion, Literature/Printed Materials, Performance Response to Education/Teach Back: States/Identifies, Return Demonstration TREATMENT: PT Treatment Interventions: Therapeutic Exercise, Self-Skilled Nursing Management Evaluation Therapeutic Exercise: 1: *quick flicks, 3x10 2: *kegal holds, 10sec hold with 5sec rest, 2x10 3: *supine diaphragmatic breathing with hips propped up on pillows and BLE up against a wall, 3x1min 4: Reviewed previous HEP and encouraged continued good compliance, discussed online strengthening program and encouraged continued regular performance with proper breathing and form 5: Encouraged performance of exercises immediately after recreational activities Skilled Intervention: Patient was educated in proper exercise technique and purpose for exercises. Reviewed and educated patient on additions/changes for home exercise program as above (*). Skilled judgment was used in selection of appropriate interventions. Provided written instruction for home exercise program to facilitate proper performance and compliance. Self-Skilled Nursing Management: 1: Reviewed benefits of using a pessary during higher level activities (and possibly in general throughout the day depending on comfort level/symptoms) 2: Encouraged practicing reps of insertion and removal of pessary to gain confidence with process 3: Encouraged continued good pressure management strategies, such as breathing and bracing during functional tasks Skilled Intervention: Skilled judgment in the selection of proper modification for activity of daily living/home management based on clinical presentation, deficits, and needs. Billing * Evaluation Low Complexity: 1 Unit Therapeutic Exercise Treatment Minutes: 11 Self-Care/Home Management Treatment Minutes: 14 Skilled Treatment Time Minutes (timed and untimed codes): 50 Total Session Time (minutes): 50 Session Start Time : 736 Session Stop Time : 826 Henny Gillis PT documented in this encounter [facility] 01-02-2024 Note HNO ID: [id number] Author: HENNY HENRY PT Service: ? Author Type: Physical Therapist Type: Progress Notes Filed: 01/02/2024 08:37 Note Text: Episode Visit Count: 1 Therapist That Will Accept/Oversee The Plan Of Care: Henny Gillis Start of Care Date: 01/02/24 Onset Date: 10/23/23 Patient Identified by Name and Date of : Yes REHABILITATION AND SPORTS THERAPY PHYSICAL THERAPY EVALUATION PLAN OF CARE: Assessment: Fang Killian presents with chief complaint of intermittent POP symptoms that interferes with physical activities . She denies any bladder, bowel, or pelvic pain symptoms. The patient presents with impairments in decreased core strength. PROMIS? (Patient-Reported Outcomes Measurement Information System) scores were reviewed and identified as a rehabilitation concern. Prognosis for therapy is Excellent due to: current objective clinical presentation, positive past response to therapy . The patient will benefit from skilled therapy services to meet the goals established for this plan of care as noted below. Goals for Episode of Care: established 01/02/24 Century in home exercise program. Patient will demonstrate increase in lower abdominal strength to at least 3+/5 during manual muscle testing in order to improve function for leisure / recreation skills and moderate to heavy functional tasks. Patient reports at least 85% improvement in POP symptoms with recreational activities compared to IE. Patient Goals: improve POP symptoms with physical activities Time Frame for Goals and Treatment : 03/02/24 Planned Interventions, Frequency, and Duration: Current Frequency: 1x/month Duration: 4 weeks (reassess at 4 weeks and progress as indicated) Total Number of Visits Planned: 1 Planned Treatment Interventions: Therapeutic exercise (78307), Neuromuscular re-education (48946), Manual therapy (27643), Self-alf management (59891), Patient/Family/Caregiver Education PLAN FOR NEXT VISIT: recheck in 1 month Patient demonstrates good understanding of plan of care and treatment. The above goals and plan of care were discussed and agreed upon by patient/family. SUBJECTIVE: Pt reports POP felt great since PFPT episode last year up until a couple months ago when playing pickleball. Pt reports being fitted for a pessary and plans to use it when being more active, waiting for pessary to come in stock. Pt reports she only has POP symptoms with high level recreational activities, no symptoms with ADLs. Pt denies any bladder, bowel, or pelvic pain concerns. Pt reports good compliance with HEP, states she started an online program for core strengthening to help with DR and is doing a lot of pelvic floor and core exercises. Patient Goals: improve POP symptoms with physical activities Functional Limitations: physical activities Prior Level of Function: Independent without limitations PAST MEDICAL HISTORY Diagnosis Date Breast cancer (HCC) left Cystocele with prolapse s/p hysterectomy Diverticulitis 03/15/2021 Essential hypertension situational- trying to get off medication Mixed hyperlipidemia Diet Controlled - Vegan Multiple cysts of breast Spider veins of limb Uterine prolapse Vegan diet PAST SURGICAL HISTORY Procedure Laterality Date COLONOSCOPY 05/2022 Dr. Chirinos, repeat in 10 years per patient COLONOSCOPY GEN ANES 2012 Dr. Chirinos-reportedly negative/normal. MASTECTOMY, SIMPLE, COMPLETE Left 12/2022 TOTAL ABD HYSTERECTOMY+BLAD REPR 11/02/2019 for tx of uterine and bladder prolapse. 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 Recreation / Current Exercise: pickleball Intake Information: Prescription present Previous Treatment: Pelvic Floor Physical Therapy Falls Interview: No positive findings with falls interview Aquatic Screen: No Pain: Pain Pain Level: 0 Post Treatment Pain Post Treatment Pain Level: 0 PROMIS Scales 12/30/2023 03/20/2023 02/10/2023 Higher is Better Phys Func - Score 42 (mild dysfunction) 43 (mild dysfunction) 29 (severe dysfunction) Phys Func - Percentile 21 24 2 Self-Eff Symptom - Score 49 (Average) 46 (Average) 34 (Low) Self-Eff Symptom - Percentile 46 34 5 T-scores: mean of general population = 50. 5 points is clinically meaningfully difference Percentiles provide an indication of how the patient's score ranks in relation to the general population. Higher percentile rankings indicate better function/quality of life. 50th percentile is the average of the general population and indicates half of respondents had a worse score. OBJECTIVE MEASURES WITH LEVEL OF FUNCTION: Pelvic Floor Pregnancies: 5 Births: 4 Vaginal Delivery: Standard Pain with penetration: Not sexually active, No Urinary/Bowel History : Urinary History, Bowel Histo (more content not included)... [facility] 12-16-2023 Telephone encounter Note Requester: Pharmacy Patients last Endocrinology visit occurred 07/15/23. Follow-up evaluation has been established Upcoming Endocrinology Appointments - Next 365 Days No appointments to display . Requested Prescriptions Pending Prescriptions Disp Refills alendronate (FOSAMAX) 70 mg tablet 12 tablet 1 Sig: Take 1 tablet by mouth one time a week. In AM with cup of water on empty stomach. Nothing else by mouth and stay upright for 30 min. If patient is due for an appointment please route to provider for refill consideration and also to the endo scheduling pool. PSS NOTE: Patient needs scheduled appointment No [facility] 12-16-2023 Miscellaneous Notes Requester: Pharmacy Patients last Endocrinology visit occurred 07/15/23. Follow-up evaluation has been established Upcoming Endocrinology Appointments - Next 365 Days No appointments to display . Requested Prescriptions Pending Prescriptions Disp Refills alendronate (FOSAMAX) 70 mg tablet 12 tablet 1 Sig: Take 1 tablet by mouth one time a week. In AM with cup of water on empty stomach. Nothing else by mouth and stay upright for 30 min. If patient is due for an appointment please route to provider for refill consideration and also to the endo scheduling pool. PSS NOTE: Patient needs scheduled appointment No documented in this encounter [facility] 11-27-2023 History of Present illness Narrative Some elements of all sections of this documentation were copied from my previous note of March 26, 2023 and have been re-examined and updated where appropriate. All elements reflect the current assessment and medical decision making of today, November 27, 2023 This visit is a phone encounter as patient's sound not able to connect on virtual visit. It required patient-provider interaction for the medical decision making as documented below. Persons Present: patient Fang Killian has consented to this distance health encounter. I have communicated my name and active licensure. The patient's identity and physical location were verified at the time of this visit. Either the patient or their legal contact representative has been informed of the risks and benefits of -- and alternatives to -- treatment through a remote evaluation and consents to proceed with the evaluation remotely. ATTENDING PHYSICIAN: Dr. Kimberlee Lion IDENTIFICATION: Fang Killian is a 63 year old woman with a history of a [id number], ER positive (91%), WY positive (61-70%), Aal3ddr negative (IHC 2+), (oncotype dx recurrence score of 13), Infiltrating ductal carcinoma (grade 2) of the left breast, diagnosed in November 2022. REASON FOR VISIT / CHIEF COMPLAINT: routine 4 month follow up with review of mammogram results SURVIVORSHIP VISIT: March 28, 2023 CURRENT SYSTEMIC THERAPY FOR BREAST CANCER: ~ Anastrozole 1 mg daily PAST THERAPY FOR BREAST CANCER: ~ Left mastectomy with SLNBx (01/15/23; micrometastasis of 1 [address] and isolated tumor cells of 1 LN total of 5 LN examined; 1.5 cm) ~ Anastrozole (02/08/23-present) INTERVAL HISTORY: Pt presents today by herself. She reports that she is taking her Anastrozole 1 mg daily as prescribed with minimal difficulty. She reports that she physically feels well and is without any new concerns or discomforts that would be suggestive of recurrent or metastatic disease. She specifically denies any concerning nausea, vomiting, cough, shortness of breath, localized bone pain, headaches or diplopia. She reports that she is doing regular breast exams and denies any concerns related to the same. She also confirms that she does have a primary care provider (Ross Sanders MD, PhD), which she verifies she is following up with regularly for her routine health maintenance. REVIEW OF SYSTEMS: The remainder of the review of systems is unremarkable. PERSONAL MEDICAL / SURGICAL HISTORY: Personal medical / surgical history reviewed SIGNIFICANT (CANCER) FAMILY MEDICAL HISTORY: Father- prostate cancer PHYSICAL EXAM: Noted on video visit prior to converting to telephone encounter for technical difficulties. General: alert and appropriate, in no distress, well-hydrated, well nourished, and happy, smiling, interactive Skin: no rash noted Head: normocephalic, no abnormality or lesion noted Neck: full ROM, no cervical LNs noted Respiratory: breathing non-labored and no grunting/flaring/retractions Chest: equal chest rise with normal respiratory effort LABS/IMAGING: No labs done at time of today's visit Right Antonio-mammogram (November 14, 2023): There is no mammographic evidence of malignancy. A 1 year screening mammogram is recommended. Bone density (02/07/2023): Osteoporosis; with the lowest t-score of -3.1 IMPRESSION: a history of a [id number], ER positive (91%), WY positive (61-70%), Jsl2azd negative (IHC 2+), (oncotype dx recurrence score of 13), Infiltrating ductal carcinoma (grade 2) of the left breast, diagnosed in November 2022, s/p left mastectomy with SLNBx; current therapy: anastrozole, no evidence of disease recurrence at the time of today's exam. PLAN: After evaluation and review of the ongoing treatment plan, the following referral/recommendations have been made. (Z08) Encounter for routine cancer follow-up (primary encounter diagnosis) (C50.919) Invasive carcinoma of breast (HCC) - Continue with active therapy in the adjuvant setting for breast cancer (with curative intent): ~ Anastrozole 1 mg daily with intent of completing 5-10 years depending on BCI (January 2028-January 2033) ~ patient is on fosamax per endocrinology for osteoporosis as she preferred not to be on zometa - Encouraged ongoing monthly breast self exams - Regular exercise (greater then 30 minutes most days of the week / 150 minutes weekly) - There were NO other physical concerns requiring further evaluation at this time - Mammogram next due: October 2024 - Bone density next due: January 2025 - Follow up with PCP for routine health maintenance - Follow up in 4 months, anticipate seeing Dr. Lion back at that time She has been encouraged to call with any additional questions/concerns in the interim. Understanding verbalized. I spent a total of 20 minutes on the date of the service which included preparing to see the patient, completing clinical documentation, obtaining and/or reviewing separately obtained history, performing a medically appropriate examination, counseling and educating the patient/family/caregiver, and communicating results to the patient/family/caregiver. Bruna Nathan APRN.CNP documented in this encounter [facility] 11-27-2023 Note HNO ID: [id number] Author: BRUNA NATHAN APRN.CNP Service: ? Author Type: Nurse Practitioner Type: Progress Notes Filed: 11/27/2023 14:55 Note Text: Some elements of all sections of this documentation were copied from my previous note of March 26, 2023 and have been re-examined and updated where appropriate. All elements reflect the current assessment and medical decision making of today, November 27, 2023 This visit is a phone encounter as patient's sound not able to connect on virtual visit. It required patient-provider interaction for the medical decision making as documented below. Persons Present: patient Fang Killian has consented to this distance health encounter. I have communicated my name and active licensure. The patient's identity and physical location were verified at the time of this visit. Either the patient or their legal contact representative has been informed of the risks and benefits of -- and alternatives to -- treatment through a remote evaluation and consents to proceed with the evaluation remotely. ATTENDING PHYSICIAN: Dr. Kimberlee Lion IDENTIFICATION: Fang Killian is a 63 year old woman with a history of a [id number], ER positive (91%), WY positive (61-70%), Qtu2iaq negative (IHC 2+), (oncotype dx recurrence score of 13), Infiltrating ductal carcinoma (grade 2) of the left breast, diagnosed in November 2022. REASON FOR VISIT / CHIEF COMPLAINT: routine 4 month follow up with review of mammogram results SURVIVORSHIP VISIT: March 28, 2023 CURRENT SYSTEMIC THERAPY FOR BREAST CANCER: ~ Anastrozole 1 mg daily PAST THERAPY FOR BREAST CANCER: ~ Left mastectomy with SLNBx (01/15/23; micrometastasis of 1 LN and isolated tumor cells of 1 LN total of 5 LN examined; 1.5 cm) ~ Anastrozole (02/08/23-present) INTERVAL HISTORY: Pt presents today by herself. She reports that she is taking her Anastrozole 1 mg daily as prescribed with minimal difficulty. She reports that she physically feels well and is without any new concerns or discomforts that would be suggestive of recurrent or metastatic disease. She specifically denies any concerning nausea, vomiting, cough, shortness of breath, localized bone pain, headaches or diplopia. She reports that she is doing regular breast exams and denies any concerns related to the same. She also confirms that she does have a primary care provider (Ross Sanders MD, PhD), which she verifies she is following up with regularly for her routine health maintenance. REVIEW OF SYSTEMS: The remainder of the review of systems is unremarkable. PERSONAL MEDICAL / SURGICAL HISTORY: Personal medical / surgical history reviewed SIGNIFICANT (CANCER) FAMILY MEDICAL HISTORY: Father- prostate cancer PHYSICAL EXAM: Noted on video visit prior to converting to telephone encounter for technical difficulties. General: alert and appropriate, in no distress, well-hydrated, well nourished, and happy, smiling, interactive Skin: no rash noted Head: normocephalic, no abnormality or lesion noted Neck: full ROM, no cervical LNs noted Respiratory: breathing non-labored and no grunting/flaring/retractions Chest: equal chest rise with normal respiratory effort LABS/IMAGING: No labs done at time of today's visit Right Antonio-mammogram (November 14, 2023): There is no mammographic evidence of malignancy. A 1 year screening mammogram is recommended. Bone density (02/07/2023): Osteoporosis; with the lowest t-score of -3.1 IMPRESSION: a history of a [id number], ER positive (91%), WY positive (61-70%), Gvv8wrs negative (IHC 2+), (oncotype dx recurrence score of 13), Infiltrating ductal carcinoma (grade 2) of the left breast, diagnosed in November 2022, s/p left mastectomy with SLNBx; current therapy: anastrozole, no evidence of disease recurrence at the time of today's exam. PLAN: After evaluation and review of the ongoing treatment plan, the following referral/recommendations have been made. (Z08) Encounter for routine cancer follow-up (primary encounter diagnosis) (C50.919) Invasive carcinoma of breast (HCC) - Continue with active therapy in the adjuvant setting for breast cancer (with curative intent): ~ Anastrozole 1 mg daily with intent of completing 5-10 years depending on BCI (January 2028-January 2033) ~ patient is on fosamax per endocrinology for osteoporosis as she preferred not to be on zometa - Encouraged ongoing monthly breast self exams - Regular exercise (greater then 30 minutes most days of the week / 150 minutes weekly) - There were NO other physical concerns requiring further evaluation at this time - Mammogram next due: October 2024 - Bone density next due: January 2025 - Follow up with PCP for routine health maintenance - Follow up in 4 months, anticipate seeing Dr. Lion back at that time She has been encouraged to call with any additional questions/concerns in the interim. Understanding verbali (more content not included)... [facility] 11-21-2023 Note HNO ID: [id number] Author: MK SCOTT MD Service: ? Author Type: Physician Type: Progress Notes Filed: 11/21/2023 16:51 Note Text: Fang Killian presents today for pessary insertion for prolapse AND FAIZAN. The alternatives, risks, benefits, and potential complications have been reviewed with the patient. The patient states an understanding of RBAP and consents to proceed with the procedure. A size 3, ring with support pessary was inserted, patient tolerated the procedure well and the device is comfortable but moved. Then a size 4, ring with support pessary was inserted, patient tolerated the procedure well and the device is comfortable She demonstrated appropriate insertion and removal of the pessary as well as proper use and care. AANDP: 63yo female with FAIZAN, cystocele AND apical vaginal prolapse Pessary (#4 ring with support) will be ordered for patient. Consult to pelvic floor PT. Mk Scott MD [facility] 11-21-2023 History of Present illness Narrative Fang Killian presents today for pessary insertion for prolapse & FAIZAN. The alternatives, risks, benefits, and potential complications have been reviewed with the patient. The patient states an understanding of RBAP and consents to proceed with the procedure. A size 3, ring with support pessary was inserted, patient tolerated the procedure well and the device is comfortable but moved. Then a size 4, ring with support pessary was inserted, patient tolerated the procedure well and the device is comfortable She demonstrated appropriate insertion and removal of the pessary as well as proper use and care. A&P: 63yo female with FAIZAN, cystocele & apical vaginal prolapse Pessary (#4 ring with support) will be ordered for patient. Consult to pelvic floor PT. Mk Scott MD documented in this encounter [facility] 11-17-2023 Note Formatting of this n ote might be different from the original. November 17, 2023 PID: [id number] Fang Killian [address] [place] [address] Dear Ms. Killian, We are pleased to inform you that the results of your recent breast imaging exam on 11/14/2023 are normal. Breast tissue can be either dense or not dense. Dense tissue makes it harder to find breast cancer on a mammogram and also raises the risk of developing breast cancer. Your breast tissue is dense. In some people with dense tissue, other imaging tests in addition to a mammogram may help find cancers. Talk to your healthcare provider about breast density, risks for breast cancer, and your individual situation. Early detection of cancer is very important. We also understand recommendations regarding breast cancer screening are controversial. Please discuss with your primary care provider which strategy is best for you and whether a mammogram is right for you. Your imaging studies and report will be kept on file at [facility] as part of your permanent medical record and are available for your continuing care. Thank you for allowing us to help in meeting your health care needs. Sincerely, Dr. Maria Interpreting Radiologist [facility] (Normal over 40) [facility] 11-17-2023 Miscellaneous Notes November 17, 2023 PID: [id number] Fang Killian [address] [place] [address] Dear Ms. Killian, We are pleased to inform you that the results of your recent breast imaging exam on 11/14/2023 are normal. Breast tissue can be either dense or not dense. Dense tissue makes it harder to find breast cancer on a mammogram and also raises the risk of developing breast cancer. Your breast tissue is dense. In some people with dense tissue, other imaging tests in addition to a mammogram may help find cancers. Talk to your healthcare provider about breast density, risks for breast cancer, and your individual situation. Early detection of cancer is very important. We also understand recommendations regarding breast cancer screening are controversial. Please discuss with your primary care provider which strategy is best for you and whether a mammogram is right for you. Your imaging studies and report will be kept on file at [facility] as part of your permanent medical record and are available for your continuing care. Thank you for allowing us to help in meeting your health care needs. Sincerely, Dr. Maria Interpreting Radiologist [facility] (Normal over 40) documented in this encounter [facility] 11-14-2023 History of Present illness Narrative Radiology Service Progress Note PATIENT NAME: Fang Killian DATE OF SERVICE: November 14, 2023 TIME: 1:10 PM PATIENT IDENTITY VERIFICATION COMPLETED USING TWO (2) IDENTIFIERS: Name and Date of confirmed by patient verbally. FALL SCREENING: Has the patient had 2 falls in the last year or 1 fall with injury or currently using an Ambulatory Assistive Device (Walker, Cane, Wheelchair, Crutches, etc.)? No PATIENT GENDER DATA: Female. status: : No status: NO. PATIENT RELEVANT IMPLANT DATA REVIEWED: Not Applicable PATIENT PRESENTS WITH AN IMPLANTABLE OR ATTACHED BENDING MACHINE OPERATOR: No RADIOLOGY DEPARTMENT: Mammography PERIPHERAL IV DATA: Not applicable SIGNED BY: Abdirashid Heath November 14, 2023 1:10 PM documented in this encounter [facility] 11-14-2023 Note HNO ID: [id number] Author: MEHRAN YARBROUGH Mammo Tech Service: ? Author Type: Rectangular Tank Cooper Type: Progress Notes Filed: 11/14/2023 13:10 Note Text: Radiology Service Progress Note PATIENT NAME: Fang Killian DATE OF SERVICE: November 14, 2023 TIME: 1:10 PM PATIENT IDENTITY VERIFICATION COMPLETED USING TWO (2) IDENTIFIERS: Name and Date of confirmed by patient verbally. FALL SCREENING: Has the patient had 2 falls in the last year or 1 fall with injury or currently using an Ambulatory Assistive Device (Walker, Cane, Wheelchair, Crutches, etc.)? No PATIENT GENDER DATA: Female. status: : No status: NO. PATIENT RELEVANT IMPLANT DATA REVIEWED: Not Applicable PATIENT PRESENTS WITH AN IMPLANTABLE OR ATTACHED BENDING MACHINE OPERATOR: No RADIOLOGY DEPARTMENT: Mammography PERIPHERAL IV DATA: Not applicable SIGNED BY: Mehran Yarbrough Memvu November 14, 2023 1:10 PM [facility] 11-07-2023 Note HNO ID: [id number] Author: MK SCOTT MD Service: ? Author Type: Physician Type: Progress Notes Filed: 11/07/2023 16:25 Note Text: Artificial Cherry Maker offered: Patient declinesAbby Headley is a 63 year old who presents for an annual gynecologic exam. Postmenopausal: Yes HRT use: No. 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 Chirinos, repeat in 10 years per patient 2012: COLONOSCOPY GEN ANES Comment: Dr. Chirinos-reportedly negative/normal. 12/2022: MASTECTOMY, SIMPLE, COMPLETE; Left 11/02/2019: TOTAL ABD HYSTERECTOMY+BLAD REPR Comment: for tx of uterine and bladder prolapse. FAMILY HISTORY Problem Relation Age of Onset No Known Problems Mother Arthritis Father Heart Attack Father 65 Prostate Cancer Father No Known Problems Sister No Known Problems Maternal Grandmother No Known Problems Maternal Grandfather No Known Problems Paternal Grandmother No Known Problems Paternal Grandfather other (Pulmonary Embolus) Daughter No Known Problems Daughter No Known Problems Son No Known Problems Son SOCIAL HISTORY Social History Tobacco Use Smoking status: Never Smokeless tobacco: Never Vaping Use Vaping Use: Never used Substance Use Topics Alcohol use: Yes Comment: rare Drug use: Never REVIEW OF SYSTEMS Abdomen: No abdominal pain, nausea, vomiting, diarrhea, or constipation. No bloating, early satiety, indigestion, or increased flatulence. Bladder: No dysuria, gross hematuria, urinary frequency, urinary urgency. Some FAIZAN with pickleball - improved after pelvic floor PT in the past. Breast: No breast lumps, nipple d/c, overlying skin changes, redness or skin retraction Allergies and current medication updated:Yes EXAM: BP 114/62 Ht 5' 5.5 (1.66m) Wt 142 lb (64.4kg) BMI 23.26 kg/(m2). GENERAL: pleasant, female in no apparent distress BREAST: Right breast - soft, non-tender, no dominant mass, normal nipple-areolar complex, no lymphadenopathy, and no nipple discharge: Left - s/p matsectomy CHEST: Normal inspiratory effort ABDOMEN: soft, non-tender, and no masses PELVIC: external genitalia normal, no vulvar lesions, normal appearing perineal body and perianal region; cystocele and apical vaginal prolapse BIMANUAL: no adnexal masses, non-tender, and uterus surgically absent RECTOVAGINAL: deferred. NEURO: alert and oriented x3,exam grossly non-focal EXTREMITIES: normal ASSESSMENT/PLAN: 1) Health maintenance: Pap/HPV screening no longer needed Mammogram - gets Nutrition, exercise and routine health maintenance exams reviewed. Colon cancer screening: up to date with screening 2) Follow up one year or sooner as needed 3) FAIZAN AND cystocele - follow up for pessary fitting Mk Scott MD [facility] 11-07-2023 History of Present illness Narrative Artificial Cherry Maker offered: Patient declines. Fang is a 63 year old who presents for an annual gynecologic exam. Postmenopausal: Yes HRT use: No. 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 Chirinos, repeat in 10 years per patient 2012: COLONOSCOPY GEN ANES Comment: Dr. Chirinos-reportedly negative/normal. 12/2022: MASTECTOMY, SIMPLE, COMPLETE; Left 11/02/2019: TOTAL ABD HYSTERECTOMY+BLAD REPR Comment: for tx of uterine and bladder prolapse. FAMILY HISTORY Problem Relation Age of Onset No Known Problems Mother Arthritis Father Heart Attack Father 65 Prostate Cancer Father No Known Problems Sister No Known Problems Maternal Grandmother No Known Problems Maternal Grandfather No Known Problems Paternal Grandmother No Known Problems Paternal Grandfather other (Pulmonary Embolus) Daughter No Known Problems Daughter No Known Problems Son No Known Problems Son SOCIAL HISTORY Social History Tobacco Use Smoking status: Never Smokeless tobacco: Never Vaping Use Vaping Use: Never used Substance Use Topics Alcohol use: Yes Comment: rare Drug use: Never REVIEW OF SYSTEMS Abdomen: No abdominal pain, nausea, vomiting, diarrhea, or constipation. No bloating, early satiety, indigestion, or increased flatulence. Bladder: No dysuria, gross hematuria, urinary frequency, urinary urgency. Some FAIZAN with pickleball - improved after pelvic floor PT in the past. Breast: No breast lumps, nipple d/c, overlying skin changes, redness or skin retraction Allergies and current medication updated:Yes EXAM: BP 114/62 Ht 5' 5.5 (1.66m) Wt 142 lb (64.4kg) BMI 23.26 kg/(m^2). GENERAL: pleasant, female in no apparent distress BREAST: Right breast - soft, non-tender, no dominant mass, normal nipple-areolar complex, no lymphadenopathy, and no nipple discharge: Left - s/p matsectomy CHEST: Normal inspiratory effort ABDOMEN: soft, non-tender, and no masses PELVIC: external genitalia normal, no vulvar lesions, normal appearing perineal body and perianal region; cystocele and apical vaginal prolapse BIMANUAL: no adnexal masses, non-tender, and uterus surgically absent RECTOVAGINAL: deferred. NEURO: alert and oriented x3,exam grossly non-focal EXTREMITIES: normal ASSESSMENT/PLAN: 1) Health maintenance: Pap/HPV screening no longer needed Mammogram - gets Nutrition, exercise and routine health maintenance exams reviewed. Colon cancer screening: up to date with screening 2) Follow up one year or sooner as needed 3) FAIZAN & cystocele - follow up for pessary fitting Mk Scott MD documented in this encounter [facility] 08-23-2023 History of Present illness Narrative EST PATIENT Last visit: 07/03/23 Chief Complaint:FBSC History of Present Ilness: Fang Killian is a 62 year old female presents today for a FBSC. No other concerns today /planning or :No Pertinent Past Medical History: -Personal history of skin cancer: No -Personal history of skin disease: No -History of organ transplant/immunosuppressed: No -History of atypical moles: No -Pacemaker or defibrillator: No Specialty Problems Dermatology Problems Spider veins of limb Pertinent Family medical history: History of melanoma:Yes-Both Grandfathers Review of Systems: Constitutional: Denies fever, chills, night sweats, unintentional weight loss. Skin per HPI. No other new/concerning skin growth. Physical Exam: General: well appearing, of stated age, in no acute distress Neurology: alert and oriented times three Psychiatry: normal affect and speech [place] skin type: II A skin exam was done of the scalp, face including eyelids and lips, ears, neck, chest, back, abdomen, bilateral upper extremities including digits, bilateral lower extremities and digits, buttocks, nails, except genitals Skin exam normal with the exception of: Stuck-on verrucous, variably pigmented papules and plaques on trunk Regular and symmetric brown macules and papules on the head, trunk and extremities Scattered reticulated light casas macules in sun distribution Scattered small huang red papules throughout Assessment and Plan: 1. Solar lentigines, Multiple benign nevi, Huang angiomas, Seborrheic Keratoses Reassurance on benign nature of lesions and recommend routine self-examinations. Recommend observation and encouraged to notify office of changes. Sunscreen (SPF 30 or higher). Sun protective clothing can be used in lieu of sunscreen but must be worn the entire time you are exposed to the sun's rays The ABCDEs of melanoma were reviewed with the patient and the importance of routine self-examination of moles was emphasized. Should any areas change in size, shape or color, bleed or become tender, the patient will contact the office for evaluation sooner than their interval appointment. Patient verbalizes understanding and agrees with treatment plan. Follow up: 1 year or sooner if something concerning arises. The documentation for this note was completed by Cary Rodgers MA acting as scribe for Lyric Lopez APRN.CNP. October 02, 2023 7:13 AM. Cary Rodgers MA I agree with the Chief Complaint, ROS, and Past Histories independently gathered by the clinical support services specialist and the remaining scribed note accurately describes my personal service to the patient. Lyric Lopez APRN.CNP documented in this encounter [facility] 07-17-2023 History of Present illness Narrative VIRTUAL VISIT PROGRESS NOTE This is a virtual visit using daysoft Zoom Video Visit. It required patient-provider interaction for the medical decision making as documented below. I have communicated my name and active licensure. The patient's identity and physical location were verified at the time of this visit. Either the patient or their legal contact representative has been informed of the risks and benefits of -- and alternatives to -- treatment through a remote evaluation and consents to proceed with the evaluation remotely. Persons Present: patient Chief Complaint/Reason: follow up Clinic note from 05/21/2023 copied and updated. HPI: Fang Killian is a 62 year old female with hx of HTN, left breast cancer s/p mastectomy 12/2022, and osteoporosis who presents for follow up evaluation of renal lesions. Had CT abd/pel in 03/2022 with indeterminate renal lesions. Last OV with Dr. Abdul 05/21/23. Plan to check CT kidney. CT KIDNEY WO/W IVCON IMPRESSION: LEFT-SIDED HYPERDENSE CYST WITH ADDITIONAL TOO SMALL TO CHARACTERIZE RENAL LESIONS, STATISTICALLY BENIGN. NO ENHANCING RENAL MASS. Interval Hx: Overall, doing well. Has started Fosamax for osteoporosis since last OV. Otherwise, no interval changes in health. No gross hematuria or flank pain. PMH: osteoporosis; left breast cancer; cystocele recurrence; HTN PSH: hysterectomy; cystocele repair; s/p left mastectomy Data Reviewed: Most recent labs and imaging results. Labs: Creatinine Date Value Ref Range Status 05/03/2023 0.65 0.58 - 0.96 mg/dL Final 03/28/2023 0.67 0.58 - 0.96 mg/dL Final 01/06/2023 0.61 0.58 - 0.96 mg/dL Final 04/13/2022 0.70 0.58 - 0.96 mg/dL Final Imaging: CT abd/pel w IVCON 04/18/2022 IMPRESSION: Numerous liver cysts. A few subcentimeter low-attenuation lesions in the kidneys with attenuation not compatible with simple cysts. Close follow-up is suggested. Colonic diverticulosis without evidence of diverticulitis. Irregular soft tissue density along the left pelvis, likely from left ovary or adnexa. Clinical correlation is suggested. HISTORY REVIEWED (electronic chart updated): PAST MEDICAL HISTORY Diagnosis Date Cystocele with prolapse s/p hysterectomy Diverticulitis 03/15/2021 Essential hypertension situational- trying to get off medication Mixed hyperlipidemia Diet Controlled - Vegan Multiple cysts of breast Spider veins of limb Uterine prolapse Vegan diet PAST SURGICAL HISTORY Procedure Laterality Date COLONOSCOPY 05/2022 Dr. Chirinos, repeat in 10 years per patient COLONOSCOPY GEN ANES 2012 Dr. Chirinos-reportedly negative/normal. TOTAL ABD HYSTERECTOMY+BLAD REPR 11/02/2019 for tx of uterine and bladder prolapse. FAMILY HISTORY Problem Relation Age of Onset No Known Problems Mother Arthritis Father Heart Attack Father 65 Prostate Cancer Father No Known Problems Sister No Known Problems Maternal Grandmother No Known Problems Maternal Grandfather No Known Problems Paternal Grandmother No Known Problems Paternal Grandfather other (Pulmonary Embolus) Daughter No Known Problems Daughter No Known Problems Son No Known Problems Son Social History Tobacco Use Smoking status: Never Smokeless tobacco: Never Vaping Use Vaping Use: Never used Substance Use Topics Alcohol use: Yes Comment: rare Drug use: Never Current Outpatient Medications Medication Sig alendronate (FOSAMAX) 70 mg tablet Take 1 tablet by mouth one time a week. In AM with cup of water on empty stomach. Nothing else by mouth and stay upright for 30 min. lisinopril 2.5 mg tablet Take 1 tablet by mouth once daily. cholecalciferol, Vitamin D3, (VITAMIN D3) 1,250 mcg (50,000 unit) cap capsule Take 1 capsule by mouth one time a week. (Patient not taking: Reported on 07/03/2023) anastrozole (ARIMIDEX) 1 mg tablet Take 1 tablet by mouth once daily. DHEA vaginal suppository 4 mg (CPD) Unwrap and insert 1 suppository vaginally every other night. No current facility-administered medications for this visit. ALLERGIES Allergen Reactions Seasonal Allergies Other: See Comments REVIEW OF SYSTEMS: GENERAL: activity level is normal : no gross hematuria PHYSICAL EXAMINATION: VIDEO EXAM: (if completed, performed via video enabled technology) GENERAL: alert and appropriate, in no distress, well-hydrated, well nourished, and happy, smiling, interactive RESPIRATORY: breathing non-labored CHEST: equal chest rise with normal respiratory effort ASSESSMENT: (N28.1) Renal cyst (primary encounter diagnosis) 62 year old female previously referred for renal lesion We discussed CT kidney results from 05/26/23 in detail with no evidence of enhancing renal mass- we discussed benign findings with no recommends for continued surveillance per Dr. Abdul. She has no urologic issues or concerns. PLAN: -Follow up with Dr. Abdul's team PRN Discussed with Dr. Abdul. There are no Patient Instructions on file for this visit. I spent a total of 20 minutes on the date of the service which included preparing to see the patient, [id number] patient care, completing clinical documentation, counseling and educating the patient/family/caregiver, and ordering medications, tests, or procedures Izabella Cuevas APRN.DAVID documented in this encounter [facility] 07-15-2023 History of Present illness Narrative Images from the original note were not included. Endocrinology Virtual Visit This is a virtual visit using daysoft Zoom Video Visit. It required patient-provider interaction for the medical decision making as documented below. I have communicated my name and active licensure. The patient's identity and physical location were verified at the time of this visit. Either the patient or their legal contact representative has been informed of the risks and benefits of -- and alternatives to -- treatment through a remote evaluation and consents to proceed with the evaluation remotely. HPI: Fang is a 62 year old female with a hx of liver and kidney cysts and recently dx with breast cancer s/p mastectomy and was found to have hypercalcemia she si also on anastrazole and , and was started on vitamin d 50,000 units weekly for vitamin D of 24 by nephrology, no recent fx, no kidney stones, recent CT kidney cysts seeing urology. Her recent DXA scan showed osteoporosis in spine T score -3.1 is going to discuss with oncology for bisphosphonate and we reviewed the risk of ONJ and AFF she will check with her dentist as well, we discussed that due to being on anastrozle and low T score in spine , even if we do surgery for parathyroid issues, we still need a short term tx with bisphosphatase. She will check with her oncology team. reviewed labs recent PTH and vitamin D and calcium are normal, however 24 hr urine calcium was elevated off high dose weekly vitamin D recheck labs, she wants to try fosamax for now rather than reclast or prolia, her dentist has oked it as well agreed with risk of ONJ and AFF. We will check CTX again in 3 months , CTX high normal now no back pain no acute issues Prior biochemical work-up: Labs Latest Reference Range & Units 01/23/23 12:10 03/28/23 12:02 Sodium 136 - 144 mmol/L 144 Potassium 3.7 - 5.1 mmol/L 4.8 Chloride 97 - 105 mmol/L 106 (H) CO2 22 - 30 mmol/L 26 BUN 7 - 21 mg/dL 14 Creatinine 0.58 - 0.96 mg/dL 0.67 Glucose 74 - 99 mg/dL 98 Calcium 8.5 - 10.2 mg/dL 10.3 (H) Ionized Calcium 1.08 - 1.30 mmol/L 1.34 (H) Normalized Calcium 1.08 - 1.30 mmol/L 1.29 Phosphorus 2.7 - 4.8 mg/dL 4.1 Albumin 3.9 - 4.9 g/dL 4.9 Anion Gap 9 - 18 mmol/L 12 eGFR >=60 mL/min/1.73m 100 Cholesterol, Total <200 mg/dL 289 (H) Triglyceride <150 mg/dL 65 Fasting Time hrs 12 HDL Cholesterol >39 mg/dL 101 LDL Cholesterol <100 mg/dL 175 (H) VLDL Cholesterol <30 mg/dL 13 TC:HDL Ratio <5.10 2.86 LDL:HDL Ratio <2.54 1.73 Non HDL Cholesterol <130 mg/dL 188 (H) Vit D1,25 Dihydroxy 19.9 - 79.3 pg/mL 64.4 Vitamin D 25 Hydroxy 31.0 - 80.0 ng/mL 24.9 (L) Creatinine, Ur Random (UCRR) 20.0 - 300.0 mg/dL 45.3 Protein, Urine Random 0 - 20 mg/dL 5 Hemoglobin A1C 4.3 - 5.6 % 5.3 Estimated Average Glucose mg/dL 105 TSH 0.270 - 4.200 mIU/L 1.020 PTH, Intact 15 - 65 pg/mL 58 (H): Data is abnormally high (L): Data is abnormally low Prior Imaging: IMPRESSION: Numerous liver cysts. A few subcentimeter low-attenuation lesions in the kidneys with attenuation not compatible with simple cysts. Close follow-up is suggested. Colonic diverticulosis without evidence of diverticulitis. Irregular soft tissue density along the left pelvis, likely from left ovary or adnexa. Clinical correlation is suggested. THE LOWEST T-SCORE IS -3.1 IN THE SPINE 1) DIAGNOSIS (based on BMD alone): OSTEOPOROSIS Caution: Medical conditions other than osteoporosis may cause low bone density, such as osteomalacia or renal osteodystrophy. Clinical correlation is necessary. 2) FRACTURE RISK (Based on TBS adjusted FRAX): 10-year absolute fracture risk: - major osteoporotic fracture = 9.9 % - hip fracture = 1.5 % - A diagnosis of Osteoporosis, a 10 year probability of hip fracture greater than or equal to 3% or a 10 year probability of any major osteoporosis-related fracture greater than or equal to 20% should be considered for treatment. - DXA scanner generated FRAX calculations may slightly differ from online FRAX calculations due to differences in software versions. - All recommendations and calculations are to be considered as guidelines and should not replace sound clinical judgement - Caution: Fracture risk may be increased independent of BMD in patients with corticosteroid use, age greater than 65 years, or a history of prior fragility fracture. RECOMMENDATIONS: Follow-up in 2 years or as clinically indicated. Patients that are taking corticosteroids, are transplant recipients or have hyperparathyroidism should have annual follow-up. Follow-up scans should always be done on the same machine for accurate comparison. FOR MORE INFORMATION ABOUT DIAGNOSIS AND TREATMENT: [facility] for Osteoporosis and Metabolic Bone Disease:? www.ccf.org/arthritis/osteo National Osteoporosis Foundation:? www.nof.org International Society of Clinical Densitometry www.iscd.org Shirt Ironer: [id number] Transcribe Date/Time: Feb 07 2023 2:31P Dictated by : HIREN BURTON MD This examination was interpreted and the report reviewed and electronically signed by: HIREN BURTON MD on Feb 07 2023 4:42PM EST Results-Findings * * *Final Report* * * DATE OF EXAM: Feb 07 2023 1:34PM [facility] [place] 0804 - BD DXA - AXIAL SKELETON / PROCEDURE REASON: Encounter for screening for osteoporosis * * * * Physician Interpretation * * * * EXAMINATION: DXA BONE DENSITOMETRY BD DXA - AXIAL SKELETON PATIENT DEMOGRAPHICS: Age: 62 years, Gender: Female SCANNER INFORMATION: DXA Model: A21 [employer]) A [id number] Date Scanned: 02/07/2023 1:34 PM CLINICAL HISTORY: SCREENING Encounter for screening for osteoporosis . RISK FACTORS FOR OSTEOPOROSIS AND ASSOCIATED FRACTURES REPORTED BY THIS PATIENT: Please refer to Bone Health Questionnaire in the EMR CURRENT THERAPY: Please refer to Bone Health Questionnaire in the EMR TECHNICAL LIMITATIONS: Degenerative disease of the spine RESULTS: Lumbar spine (L1, L2, L3, L4): 0.705 g/cm2, T-score -3.1, Z-score -1.6 Right Femoral Neck: 0.608 g/cm2, T-score -2.2, Z-score -0.8 Right Total Hip: 0.722 g/cm2, T-score -1.8, Z-score -0.8 Family History Family History Problem Relation Age of Onset No Known Problems Mother Arthritis Father Heart Attack Father 65 Prostate Cancer Father No Known Problems Sister No Known Problems Maternal Grandmother No Known Problems Maternal Grandfather No Known Problems Paternal Grandmother No Known Problems Paternal Grandfather other (Pulmonary Embolus) Daughter No Known Problems Daughter No Known Problems Son No Known Problems Son PAST SURGICAL HISTORY PAST SURGICAL HISTORY Procedure Laterality Date COLONOSCOPY 05/2022 Dr. Chirinos, repeat in 10 years per patient COLONOSCOPY GEN ANES 2012 Dr. Chirinos-reportedly negative/normal. TOTAL ABD HYSTERECTOMY+BLAD REPR 11/02/2019 for tx of uterine and bladder prolapse. SOCIAL HISTORY Lives with . 2 children moved out of the home now. ROS Review of Systems: Thyroid Pain: no Mass Effect: None Energy: stable and OK Moods: fair Sleep: Normal sleep pattern Temp. Intolerance: None Cardiac: NOT SIGNIFICANT CV: No history of chest pain, palpitation, orthopnea, cyanosis, pedal edema Gyne: Normal Resp: No cough, hemoptysis, asthma, recent chest infection, wheezing GI: No blood in stool, pain with BM, tarry stool, persistent diarrhea or constipation Weight: remained stable Eyes: No Memory: Good Diaphoresis: Not significant Skin: Negative M/S: negative Neuro: negative Objective Blood pressure 119/86, pulse 72, height 166.4 cm (5' 5.51), weight 57.6 kg (127 lb). Physical Exam: BP 119/86 Pulse 72 Ht 166.4 cm (5' 5.51) Wt 57.6 kg (127 lb) BMI 20.80 kg/m Physical Exam APPEARANCE: Well appearing, alert, in no acute distress, well-hydrated, well nourished. NECK Supple, no adenopathy; thyroid symmetric, normal size, no bruits LUNGS clear to auscultation ABD bowel sounds normoactive, no bruits, soft, non-tender, non-distended, without organomegaly or palpable masses, no tenderness to palpation EXTREMITIES Normal, No deformities, No skin discoloration, No edema, and Normal pulses bilaterally. NEURO Awake, alert and oriented x 3, No involuntary motions., and Reflexes symmetrical SKIN Skin color, texture, turgor normal, no suspicious rashes or lesions CURRENT MEDICATIONS Current Outpatient Medications Medication Sig Dispense Refill cholecalciferol, Vitamin D3, (VITAMIN D3) 1,250 mcg (50,000 unit) cap capsule Take 1 capsule by mouth one time a week. 12 capsule 0 anastrozole (ARIMIDEX) 1 mg tablet Take 1 tablet by mouth once daily. 90 tablet 3 DHEA vaginal suppository 4 mg (CPD) Unwrap and insert 1 suppository vaginally every other night. 45 Suppository 3 lisinopril 2.5 mg tablet Take 1 tablet by mouth once daily. 30 tablet 2 No current facility-administered medications for this visit. Assessment & Plan Fang is a 62 year old female with a hx of recently dx breast CA s/p mastectomy and anastrazole, Osteoporosis and hypercalcemia is referred by Dr Lion for further evaluation Hypercalcemia with inappropriately normal PTH and vitamin D deficiency on high dose vitamin D weekly by nephrology recheck albs in 3 months , 24 hr urine calcium elevated , if still high off vitamin D we may consider HCTZ, Parathyroid scan was negative as well. check 24 hr urine calcium as well. 2- Osteoporosis can be multifactorial, will start fosamax oncology team and dentist are ok, ordered follow up labs as well. Answers submitted by the patient for this visit: Core Review of Systems (Submitted on 07/08/2023) Fever : No Night sweats: No Recent unintentional weight change: No Nasal Congestion: No Hearing Loss: No Vision Disturbance: No A cough: No Difficulty Breathing?: No Chest pain: No Irregular heartbeat: No Leg Swelling: No Nausea: No Diarrhea: No Black tarry stools: No Difficulty Urinating?: No Awaken at Night More Than Once to Urinate?: No Joint pain or stiffness: No Muscle aches: No Leg or Foot Discomfort at Night?: No A rash: No Dizziness: No Headaches: No Memory Loss: No Seizures: No documented in this encounter [facility] 07-03-2023 History of Present illness Narrative Images from the original note were not included. BREAST MEDICAL ONCOLOGY VISIT NOTE HISTORY AND PHYSICAL EXAMINATION PATIENT NAME: Fang Killian AGE: [age] year old CHIEF COMPLAINT: Breast Cancer as described below: PRIMARY CANCER: left IDC ER 91-100%/ WY 61-70%/ HER2 (2+) by IHC, NEG by FISH Grade 2 Prognostic Stage IA [T1p(15mm by biopsy core length ) N1mi M0 ] breast cancer. Cancer Staging Invasive carcinoma of breast (HCC) Staging form: Breast, AJCC 8th Edition - Clinical stage from 01/06/2023: Stage IA (cT1c, cN0, cM0, G2, ER+, WY+, HER2-) - Signed by Kimberlee Lion MD on 01/06/2023 - Pathologic: Stage IA (pT1c, pN1mi(f), cM0, G2, ER+, WY+, HER2-, Oncotype DX score: 13) - Signed by Kimberlee Lion MD on 03/05/2023 CURRENT TREATMENT: Arimidex started 02/10/23 [No matching plan found] GENETICS: in 12/2022 Declined offer for referral. Has NO FDR with cancers. I think this is just fine. Menopausal status at the time of cancer diagnosis: POST No LMP recorded. Patient has had a hysterectomy. ONCOLOGIC HISTORY: 11/12/22: Screening Mammogram/US reported abnormality in L breast. There is a 1.1 cm x 0.9 cm x 1 cm oval mass with an indistinct margin in the left breast at 12 o'clock anterior depth. Directed ultrasound of the left axilla was negative. There is some ductal dilation near the mass possibly due to obstruction by the mass. 12/20/22: Biopsy reported a 12mm core of LEFT IDC ER 91-100%/ WY 61-70%/ HER2 (2+) by IHC, NEG by FISH Grade 2. 01/15/23: Mastectomy noted pT1c(15mm)pN1mi (1micromet of 2mm, 1ist, 5LN examined) 02/07/13: Osteoporosis on DEXA. 02/10/23: Arimidex start INTERVAL HISTORY: Since the last visit, she has followed up with endocrinology and is undergoing work up for hypercalcemia. In addition, she has followed up with urology for her kidney cysts. Ms Killian continues to be on Arimidex and has been taking it regularly and no issues tolerating it well. She reports that she has been experiencing intermittent heart palpitations which stops within few second. She reports that it is random and is not related to any activity. Denies any associated chest pain, lightheadedness and dizziness. She reports that she is currently stressed that her son is leaving for [employer] and [employer]. Unsure if she is stressed. She denies any nausea, vomiting, fevers, chills, night sweats, decreased appetite, headaches, dizziness, chest pain, shortness of breath, abdominal pain, constipation, diarrhea, numbness, tingling, weakness, urinary and fecal issues, dark stools, bright red stools or hematuria. Review of Systems: as per HPI PAST MEDICAL HISTORY Diagnosis Date Cystocele with prolapse s/p hysterectomy Diverticulitis 03/15/2021 Essential hypertension situational- trying to get off medication Mixed hyperlipidemia Diet Controlled - Vegan Multiple cysts of breast Spider veins of limb Uterine prolapse Vegan diet PAST SURGICAL HISTORY Procedure Laterality Date COLONOSCOPY 05/2022 Dr. Chirinos, repeat in 10 years per patient COLONOSCOPY GEN ANES 2012 Dr. Chirinos-reportedly negative/normal. TOTAL ABD HYSTERECTOMY+BLAD REPR 11/02/2019 for tx of uterine and bladder prolapse. Family History Problem Relation Age of Onset No Known Problems Mother Arthritis Father Heart Attack Father 65 Prostate Cancer Father No Known Problems Sister No Known Problems Maternal Grandmother No Known Problems Maternal Grandfather No Known Problems Paternal Grandmother No Known Problems Paternal Grandfather other (Pulmonary Embolus) Daughter No Known Problems Daughter No Known Problems Son No Known Problems Son Social History Tobacco Use Smoking status: Never Smokeless tobacco: Never Vaping Use Vaping Use: Never used Substance Use Topics Alcohol use: Yes Comment: rare Drug use: Never Current Outpatient Medications Medication Sig Dispense Refill lisinopril 2.5 mg tablet Take 1 tablet by mouth once daily. 90 tablet 3 cholecalciferol, Vitamin D3, (VITAMIN D3) 1,250 mcg (50,000 unit) cap capsule Take 1 capsule by mouth one time a week. (Patient not taking: Reported on 07/03/2023) 12 capsule 0 anastrozole (ARIMIDEX) 1 mg tablet Take 1 tablet by mouth once daily. 90 tablet 3 DHEA vaginal suppository 4 mg (CPD) Unwrap and insert 1 suppository vaginally every other night. 45 Suppository 3 No current facility-administered medications for this visit. ALLERGIES: Seasonal Allergies OBJECTIVE BP 125/67 Pulse 68 Temp 36.4 C (97.5 F) (Temporal) Resp 18 Wt 61.7 kg (136 lb 0.4 oz) SpO2 100% BMI 22.28 kg/m General: well-appearing, in no acute distress Skin: Skin color, texture, turgor normal, no suspicious rashes or lesions Eyes: Anicteric sclera. Extraocular movements are intact Lungs: Lungs clear to auscultation. No wheezing, rhonchi, rales Heart: RRR without murmur, gallop, rubs noted Abdomen: Abdomen soft, non-tender. Bowel sounds normal Extremities: No lower extremity swelling LABS: NA PATHOLOGY: As above IMAGING: As per above ASSESSMENT: This is a 62 year old female with a new diagnosis of stage IA HR+ HER2- breast CA s/p mastectomy. She opted for no radiation. Arimidex started 02/10/23. Cancer Staging Invasive carcinoma of breast (HCC) Staging form: Breast, AJCC 8th Edition - Clinical stage from 01/06/2023: Stage IA (cT1c, cN0, cM0, G2, ER+, WY+, HER2-) - Signed by Kimberlee Lion MD on 01/06/2023 - Pathologic: Stage IA (pT1c, pN1mi(f), cM0, G2, ER+, WY+, HER2-, Oncotype DX score: 13) - Signed by Kimberlee Lion MD on 03/05/2023 PLAN Endocrine Therapy: She has a significant family history (DTR) with pulmonary embolus relating to OCPs at age 26. Discussed Ding and Arimidex and chemocare given on both at prior visit. She decided on arimidex. DEXA 02/07/23 notes Osteoporosis. She was hesistant about treatment. She followed up with endocrinology and is undergoing work up for her hypercalcemia. 24h urine calcium was elevated to 347.6 mg but the NM parathyroid scan was normal. CT kidney demonstrated a left sided hyperdense cyst ut bening and no enhancing renal mass was visualized. Continue to follow up with endocrinology Continue Arimidex 1mg PO, started 02/10/23. Plan for 5-10 years. Follows with sexual health for vaginal atrophy. Is on DHEA cream, which is effective for her. Hypercalcemia: History of Calcium oxylate in urine. Elevated calcium with normal PTH. NM parathyroid demonstrated no scintigraphic evidence of abnormal parathyroid tissue. PTH, PTHrP, vitamin D were within normal range. Continue to follow up with endocrinology (Elements copied from prior notes for completion which have been reviewed and updated where appropriate, and all reflect current assessment and medical decision making during today's encounter) Please do not hesitate to contact with questions or concerns. This is a preliminary note which reflects the assessment of the authoring hematology-oncology fellow only. The final assessment and recommendations may be edited by attending physician. Please see attestation. Appointments for Next 60 Days Date Time Provider Location Dept Phone 07/03/2023 1:45 PM AUGUST, LYRIC Keller [place] [facility] [phone] 07/03/2023 3:00 PM KIMBERLEE LION [place] [facility] [phone] 07/15/2023 1:40 PM PETTY SHEA [place] [facility] [phone] 07/17/2023 4:30 PM IZABELLA CUEVAS [place] [facility] Bldg [phone] Images from the original note were not included. BREAST MEDICAL ONCOLOGY VISIT NOTE HISTORY AND PHYSICAL EXAMINATION PATIENT NAME: Fang Killian AGE: [age] year old CHIEF COMPLAINT: Breast Cancer as described below: PRIMARY CANCER: left IDC ER 91-100%/ WY 61-70%/ HER2 (2+) by IHC, NEG by FISH Grade 2 Prognostic Stage IA [T1p(15mm by biopsy core length ) N1mi M0 ] breast cancer. Cancer Staging Invasive carcinoma of breast (HCC) Staging form: Breast, AJCC 8th Edition - Clinical stage from 01/06/2023: Stage IA (cT1c, cN0, cM0, G2, ER+, WY+, HER2-) - Signed by Kimberlee Lion MD on 01/06/2023 - Pathologic: Stage IA (pT1c, pN1mi(f), cM0, G2, ER+, WY+, HER2-, Oncotype DX score: 13) - Signed by Kimberlee Lion MD on 03/05/2023 CURRENT TREATMENT: Arimidex started 02/10/23 [No matching plan found] GENETICS: in 12/2022 Declined offer for referral. Has NO FDR with cancers. I think this is just fine. Menopausal status at the time of cancer diagnosis: POST No LMP recorded. Patient has had a hysterectomy. ONCOLOGIC HISTORY: 11/12/22: Screening Mammogram/US reported abnormality in L breast. There is a 1.1 cm x 0.9 cm x 1 cm oval mass with an indistinct margin in the left breast at 12 o'clock anterior depth. Directed ultrasound of the left axilla was negative. There is some ductal dilation near the mass possibly due to obstruction by the mass. 12/20/22: Biopsy reported a 12mm core of LEFT IDC ER 91-100%/ WY 61-70%/ HER2 (2+) by IHC, NEG by FISH Grade 2. 01/15/23: Mastectomy noted pT1c(15mm)pN1mi (1micromet of 2mm, 1ist, 5LN examined) 02/07/13: Osteoporosis on DEXA. 02/10/23: Arimidex start INTERVAL HISTORY: Here for endocrine toxicity check She denies arthralgia, mood disturbances, insomnia, fatigue, hot flashes, or On DHEA for vaginal atrophy. Reviewed osteoporosis, doesn't want Zometa at this time until she talks to endo. Review of Systems: Reviewed and otherwise negative PAST MEDICAL HISTORY Diagnosis Date Cystocele with prolapse s/p hysterectomy Diverticulitis 03/15/2021 Essential hypertension situational- trying to get off medication Mixed hyperlipidemia Diet Controlled - Vegan Multiple cysts of breast Spider veins of limb Uterine prolapse Vegan diet PAST SURGICAL HISTORY Procedure Laterality Date COLONOSCOPY 05/2022 Dr. Chirinos, repeat in 10 years per patient COLONOSCOPY GEN ANES 2012 Dr. Chirinos-reportedly negative/normal. TOTAL ABD HYSTERECTOMY+BLAD REPR 11/02/2019 for tx of uterine and bladder prolapse. Family History Problem Relation Age of Onset No Known Problems Mother Arthritis Father Heart Attack Father 65 Prostate Cancer Father No Known Problems Sister No Known Problems Maternal Grandmother No Known Problems Maternal Grandfather No Known Problems Paternal Grandmother No Known Problems Paternal Grandfather other (Pulmonary Embolus) Daughter No Known Problems Daughter No Known Problems Son No Known Problems Son Social History Tobacco Use Smoking status: Never Smokeless tobacco: Never Vaping Use Vaping Use: Never used Substance Use Topics Alcohol use: Yes Comment: rare Drug use: Never Current Outpatient Medications Medication Sig Dispense Refill lisinopril 2.5 mg tablet Take 1 tablet by mouth once daily. 90 tablet 3 cholecalciferol, Vitamin D3, (VITAMIN D3) 1,250 mcg (50,000 unit) cap capsule Take 1 capsule by mouth one time a week. 12 capsule 0 anastrozole (ARIMIDEX) 1 mg tablet Take 1 tablet by mouth once daily. 90 tablet 3 DHEA vaginal suppository 4 mg (CPD) Unwrap and insert 1 suppository vaginally every other night. 45 Suppository 3 No current facility-administered medications for this visit. ALLERGIES: Seasonal Allergies OBJECTIVE There were no vitals taken for this visit. General: well-appearing, in no acute distress Skin: Skin color, texture, turgor normal, no suspicious rashes or lesions Eyes: Anicteric sclera. Extraocular movements are intact Lungs: Lungs clear to auscultation. No wheezing, rhonchi, rales Heart: RRR without murmur, gallop, rubs noted Abdomen: Abdomen soft, non-tender. Bowel sounds normal. No masses, organomegaly Extremities: No joint swelling, deformity, clubbing, or tenderness in the upper or lower extremities Neuro: generally intact LABS: NA PATHOLOGY: As above IMAGING: As per above ASSESSMENT: This is a 62 year old female with a diagnosis of stage IA HR+ HER2- breast CA s/p mastectomy. She opted for NO radiation. Arimidex started 02/10/23. Cancer Staging Invasive carcinoma of breast (HCC) Staging form: Breast, AJCC 8th Edition - Clinical stage from 01/06/2023: Stage IA (cT1c, cN0, cM0, G2, ER+, WY+, HER2-) - Signed by Kimberlee Lion MD on 01/06/2023 - Pathologic: Stage IA (pT1c, pN1mi(f), cM0, G2, ER+, WY+, HER2-, Oncotype DX score: 13) - Signed by Kimberlee Lion MD on 03/05/2023 PLAN Endocrine Therapy: She has a significant family history (DTR) with pulmonary embolus relating to OCPs at age 25. Discussed Ding and Arimidex and chemocare given on both at prior visit. She decided on arimidex. DEXA 02/07/23 notes OSTEOPOROSIS. She doesn't want Zometa. Is following with endocrine. Continue Arimidex 1mg PO, started 02/10/23. Plan for 5-10 years pending [facility]. HOLD OFF on vit D and calcium given elevated calcium in blood. Follows with sexual health for vaginal atrophy. Is on DHEA cream, which is effective for her. Hypercalcemia: History of Calcium oxylate in urine. Elevated calcium with normal PTH. Follows with Endocrinology (Dr Sarah Lazo). May get 2nd op to help her determine how to best manage her osteoporosis. RTC 10/23/23 [facility] (order placed) and FORENSIC MATERIALS ENGINEER visit. The [id number] with me alt FORENSIC MATERIALS ENGINEER. Appointments for Next 60 Days Date Time Provider Location Dept Phone 07/03/2023 1:45 PM AUGUST, LYRIC Ford A [facility] [phone] 07/03/2023 3:00 PM KIMBERLEE LION CA [facility] [phone] 07/15/2023 1:40 PM PETTY SHEA F [facility] [phone] 07/17/2023 4:30 PM IZABELLA CUEVAS Q [facility] [phone] Signed, Kimberlee Lion MD Associate Staff [facility] 07/02/2023 I spent a total of 30 minutes on the date of the service which included preparing to see the patient, [id number] patient care, completing clinical documentation, obtaining and/or reviewing separately obtained history, performing a medically appropriate examination, counseling and educating the patient/family/caregiver, ordering medications, tests, or procedures, and communicating results to the patient/family/caregiver. documented in this encounter [facility] 07-03-2023 Nurse Note Additional intake questions: Has the patient had fever, nausea, vomiting, diarrhea, constipation, fatigue for > 1 week? No Does the patient have a decreased appetite? No Does patient want to see a Pigment Pusher? No (yes to any of above refer patient to schedulers for dietitian appointment) ) Does patient have any new or increased numbness or tingling of extremities? No Is patient interested in fertility information? NA Does patient need any prescription refills? No Does patient have an advanced directive in place? No, Patient refused referral to Social Work or Resource Center documented in this encounter [facility] 07-03-2023 History of Present illness Narrative NEW PATIENT Chief Complaint: moles History of Present Ilness: Fang Killian is a 62 year old female presents today for a moles. Location: left elbow, nose Duration: ~ 2 years Symptoms: possibly changed in size Inciting factors: none Current treatment: none Previous treatment: none No other concerns today /planning or : no Pertinent Past Medical History: -Personal history of skin cancer: No -Personal history of skin disease: No -History of organ transplant/immunosuppressed: No -History of atypical moles: No -Pacemaker or defibrillator: No Specialty Problems Dermatology Problems Spider veins of limb Pertinent Family medical history: History of melanoma: No Review of Systems: Constitutional: Denies fever, chills, night sweats, unintentional weight loss. Skin per HPI. No other new/concerning skin growth. Physical Exam: General: well appearing, of stated age, in no acute distress Neurology: alert and oriented times three Psychiatry: normal affect and speech [place] skin type: II A skin exam was done of a spot on the left arm and nose. Skin exam normal with the exception of: Flesh colored papule on the right nasal sidewall. Flesh/pink colored papule on the left upper arm. Assessment and Plan: 1. Nevus of left upper arm 2. Fibrous papule of nose Reassurance on benign nature of lesions and recommend routine self-examinations. Recommend observation and encouraged to notify office of changes. Sunscreen (SPF 30 or higher). Sun protective clothing can be used in lieu of sunscreen but must be worn the entire time you are exposed to the sun's rays The ABCDEs of melanoma were reviewed with the patient and the importance of routine self-examination of moles was emphasized. Should any areas change in size, shape or color, bleed or become tender, the patient will contact the office for evaluation sooner than their interval appointment. Patient verbalizes understanding and agrees with treatment plan. Follow up: FBSE or sooner if something concerning arises. The documentation for this note was completed by Apollo Gray acting as scribe for Lyric Lopez APRN.HEAD OF ACADEMIC TECHNOLOGY. July 03, 2023 1:23 PM. James Santiago APRN.CNP- training ILyric APRN.CNP, have personally seen and examined the patient. I have discussed the case and the management of this patient's care with the trainee and agree with the documentation. I agree with the Chief Complaint, ROS, and Past Histories independently gathered by the clinical support services specialist and the remaining scribed note accurately describes my personal service to the patient. Lyric Lopez APRN.CNP documented in this encounter [facility] 06-03-2023 History of Present illness Narrative RADIOLOGY SERVICE PROGRESS NOTE DATE OF SERVICE: June 03, 2023 TIME OF SERVICE: 10:33 EVENT: EXAM/PROCEDURE NOT COMPLETED - Patient refused exam/procedure. ADDITIONAL EVENT DETAILS: Patient stated that she is unable to swallow capsules. SIGNATURE: Hanna Stroud PATIENT NAME: Fang Killian DATE: June 03, 2023 TIME: 10:33 AM PAGER/CONTACT #: documented in this encounter [facility] 05-26-2023 History of Present illness Narrative Radiology Service Progress Note DATE OF SERVICE: May 26, 2023 TIME: 3:58 PM PATIENT IDENTITY VERIFICATION COMPLETED USING TWO (2) STANDARD IDENTIFIERS: Name and Date of confirmed by patient verbally. FALL SCREENING: Has the patient had 2 falls in the last year or 1 fall with injury or currently using an Ambulatory Assistive Device (Walker, Cane, Wheelchair, Crutches, etc.)? No PATIENT GENDER DATA: Female. status: : No status: NO. PATIENT RELEVANT IMPLANT DATA REVIEWED: Yes PATIENT PRESENTS WITH AN IMPLANTABLE OR ATTACHED BENDING MACHINE OPERATOR: No ALLERGIES: Reviewed and unchanged CONTRAST ALLERGY: NO. EXAM: CT -CONTRAST INDUCED NEPHROPATHY RISK FACTORS: Patient age > 60 years CREATININE: Creatinine Date Value Ref Range Status 05/03/2023 0.65 0.58 - 0.96 mg/dL Final 03/28/2023 0.67 0.58 - 0.96 mg/dL Final 01/06/2023 0.61 0.58 - 0.96 mg/dL Final Estimated Glomerular Filtration Rate Date Value Ref Range Status 05/03/2023 100 >=60 mL/min/1.73m Final Comment: Estimated Glomerular Filtration Rate (eGFR) is calculated using the 2020 CKD-EPI creatinine equation. This equation utilizes serum creatinine, sex, and age as parameters. The creatinine assay has traceable calibration to isotope dilution-mass spectrometry. Refer to KDIGO guidelines for clinical interpretation. In patients with unstable renal function, e.g. those with acute kidney injury, the eGFR may not accurately reflect actual GFR. eGFR- Date Value Ref Range Status 06/21/2020 >60 Final P.O.C.T. RESULTS: POC done: Yes, See Lab Tab May 26, 2023 TREATMENT: N/A PERIPHERAL IV DATA: Ambulatory: A peripheral IV was started in the Right antecubital site with a Angio cath: 20 gauge. RADIOLOGY DEPARTMENT: CT; Exam(s) Completed: Kidney SIGNATURE: RT Kristin(R) PATIENT NAME: Fang Killian DATE: May 26, 2023 TIME: 3:58 PM documented in this encounter [facility] 05-21-2023 History of Present illness Narrative Referring Provider: Ross Sanders Chief Complaint: consult renal lesions HPI Fang Killian is a 62 year old female with hx of HTN, left breast cancer s/p mastectomy 12/2022, and osteoporosis who presents for evaluation of renal lesions. Referred by Dr. Sanders. CT abd/pel w IVCON 04/18/2022 IMPRESSION: Numerous liver cysts. A few subcentimeter low-attenuation lesions in the kidneys with attenuation not compatible with simple cysts. Close follow-up is suggested. Colonic diverticulosis without evidence of diverticulitis. Irregular soft tissue density along the left pelvis, likely from left ovary or adnexa. Clinical correlation is suggested. She denies any prior imaging revealing indeterminate renal lesions. 1-Duration: 2022 2-Location: kidney 3-Severity: see imaging 4-Quality: indeterminate renal lesion 5-Context: Imaging 6-Timing: constantly 7-Modifying factors: No treatment prior to referral 8-Associated signs & symptoms: no additional symptoms PMH: osteoporosis; left breast cancer; cystocele recurrence; HTN PSH: hysterectomy; cystocele repair; s/p left mastectomy Family History of Genitourinary Cancer: Yes, father with history of prostate cancer; diagnosed in his 70's LABS Creatinine Date Value Ref Range Status 05/03/2023 0.65 0.58 - 0.96 mg/dL Final 03/28/2023 0.67 0.58 - 0.96 mg/dL Final 01/06/2023 0.61 0.58 - 0.96 mg/dL Final 04/13/2022 0.70 0.58 - 0.96 mg/dL Final IMAGING As above REVIEW OF SYSTEMS GENERAL: Negative for fevers, chills, or night sweats. HEENT: Negative for sudden vision or hearing changes. RESPIRATORY: Negative for cough or shortness of breath. CARDIAC: Negative for chest pain, palpitations, murmurs, or syncopal episodes. GASTROINTESTINAL: Negative for diarrhea, constipation, abdominal pain and poor appetite. GENITOURINARY: See HPI. MUSCULOSKELETAL: Negative Bone Aches/pain NEUROLOGIC: Negative for dizziness, headache, weakness or numbness. HEMATOLOGIC: Negative for bleeding or easy bruising. SKIN: Negative for rashes or other skin changes. HISTORIES PAST MEDICAL HISTORY Diagnosis Date Cystocele with prolapse s/p hysterectomy Diverticulitis 03/15/2021 Essential hypertension situational- trying to get off medication Mixed hyperlipidemia Diet Controlled - Vegan Multiple cysts of breast Spider veins of limb Uterine prolapse Vegan diet FAMILY HISTORY Problem Relation Age of Onset No Known Problems Mother Arthritis Father Heart Attack Father 65 Prostate Cancer Father No Known Problems Sister No Known Problems Maternal Grandmother No Known Problems Maternal Grandfather No Known Problems Paternal Grandmother No Known Problems Paternal Grandfather other (Pulmonary Embolus) Daughter No Known Problems Daughter No Known Problems Son No Known Problems Son SOCIAL HISTORY Social History Tobacco Use Smoking status: Never Smokeless tobacco: Never Vaping Use Vaping Use: Never used Substance Use Topics Alcohol use: Yes Comment: rare Drug use: Never PHYSICAL EXAMINATION GENERAL: alert, no distress, normal affect EYES: no icterus, no discharge, conjugate gaze CARDIOVASCULAR: regular rate, regular rhythm, good radial pulse RESPIRATORY: normal effort, regular rate, no audible wheeze ABDOMEN: non obese, soft, non-tender, non-distended GENITOURINARY: no flank tenderness EXTREMITIES: warm, no malformations SKIN: no abnormal bruising, no rashes, no cyanosis NEUROLOGIC: normal gait, good manual dexterity, no paralysis Izabella Cuevas, ENGINEERING SURVEYOR.HEAD OF ACADEMIC TECHNOLOGY Assessment (N28.9) Renal lesion (primary encounter diagnosis) (N28.89) Other specified disorders of kidney and ureter 62 year old female who presents for indeterminate renal lesions as evidence on CT abdomen/pelvis from 03/2022 Of note, she mentions severe claustrophobia with MRI's and has had difficulty in the past Plan -Check CT kidney with follow up virtual visit with Izabella Cuevas a few days later If benign cysts then f/u prn. If any concerning lesions then appt. with me. Juan Abdul MD documented in this encounter [facility] 05-20-2023 History of Present illness Narrative BREAST CANCER POST OPERATIVE FOLLOW-UP SERVICE DATE: 05/20/2023 SURGERY DATE: 01/15/2023 SUBJECTIVE: Fang Killian, 62 year old female presents today for follow up. She was diagnosed in 2022 with a Left non palpable breast cancer was discussed in multidisciplinary team and agreed to upfront surgery. She underwent Left Mastectomy and Left sentinel node biopsy. She is under care of Dr Lion who requested Oncotype (RRS 13) and started endocrine therapy with Anastrozole. Ms Chandler opted to omit radiation therapy. She was referred to endocrinology for management of osteoporosis. She presents today for surgical follow up. Oncology History Invasive carcinoma of breast (HCC) 12/20/2022 Biopsy Breast, left, 12:00, subareolar, Bernard special education resource teacher reflector, biopsy: - Invasive ductal carcinoma with lobular features, provisional Skidmore grade 1-2, measuring at least 12 mm in greatest dimension. ER+, WY +, HER2 2+ FISH negative 12/20/2022 Imaging Breast, left, 12:00, subareolar, 12 mm in greatest dimension. BRENARD placed. 2022 MRI Susceptibility artifact at the site of biopsy-proven malignancy likely obscuring known malignancy on MRI given maximum dimension of 1.1 cm on prior ultrasound 11/12/2022. No additional new suspicious mass or abnormal enhancement. -No suspicious lymphadenopathy. 12/25/2022 Initial Diagnosis Invasive carcinoma of breast (HCC) 01/06/2023 Cancer Staged Staging form: Breast, AJCC 8th Edition - Clinical stage from 01/06/2023: Stage IA (cT1c, cN0, cM0, G2, ER+, WY+, HER2-) - Signed by Kimberlee Lion MD on 01/06/2023 01/15/2023 Surgery A. Left sentinel lymph nodes: - Micrometastatic carcinoma in one of five lymph nodes (1/5). - Isolated tumor cells in one lymph node. B. Left breast, mastectomy: - Invasive ductal carcinoma, Skidmore grade 2, 15 mm, negative margins. - Ductal carcinoma in situ, intermediate nuclear grade, solid pattern, negative margins. - Apocrine metaplasia and columnar cell change. - Biopsy site changes. - Calcifications in association with ductal carcinoma in situ and benign ducts. - Nipple and skin, not involved by carcinoma. - Skeletal muscle, not involved by carcinoma. 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 01/23/2023 Cancer Staged Staging form: Breast, AJCC 8th Edition - Pathologic: Stage IA (pT1c, pN1mi(f), cM0, G2, ER+, WY+, HER2-, Oncotype DX score: 13) - Signed by Kimberlee Lion MD on 03/05/2023 OBJECTIVE: PHYSICAL EXAM: Incision(s) healing without signs of infection. POST OPERATIVE STATUS OR LEFT BREAST: Uncomplicated post-operative course, ASSESSMENT: Fang Don Constantin, 62 year old female, with a new diagnosis of stage IA HR+ HER2- breast CA s/p mastectomy. She opted for omitting radiation. Arimidex started 02/10/23. She has an uneventful recovery. PLAN: Continue with previously scheduled consults. Follow-up PRN. All questions were answered; patient has no further concerns. I spent a total of 30 minutes on the date of the service which included preparing to see the patient, [id number] patient care, completing clinical documentation, obtaining and/or reviewing separately obtained history, performing a medically appropriate examination, counseling and educating the patient/family/caregiver, ordering medications, tests, or procedures, communicating with other HCPs (not separately reported), independently interpreting results (not separately reported), and communicating results to the patient/family/caregiver. Nona Phillips MD documented in this encounter [facility] 03-28-2023 Instructions Natanael Echeverria MD - 03/28/2023 11:35 AM EST -labs today -endocrinology appointment -consult to urology: once you know the person, send me the name and I will reach out to confirm that they would want a CT. Wait to schedule the CT til then Natanael Kwok MD documented in this encounter [facility] 03-28-2023 History of Present illness Narrative [facility] SERVICE DATE: 03/28/2023 SERVICE TIME: 11:21 AM REASON FOR CONSULT: I am asked to see this patient in consultation for my opinion regarding kidney lesions/ hypercalcemia My recommendations will be communicated by way of shared medical record, fax, or mail. REQUESTING PHYSICIAN: Kimberlee Lion MD PRIMARY CARE PHYSICIAN: Ross Sanders MD, PhD CHIEF COMPLAINT: kidney lesions/ hypercalcemia HPI: Ms. Killina is a 62 year old female with PMH of HTN, left breast cancer s/p masectomy 01/13,on anastrozole, recent diagnosis of osteoporosis here evaluation of hypercalcemia/kidney lesions. She is actually seeing endocrinology later today for the hypercalcemia and saw her internal medicine doctor yesterday who told her actually needed to see urology for the abnormal kidney imaging, but eventually decided to keep appointment with me anyway today. She is originally from [place]. Hypercalcemia -noted only x 1 in December and mild, Calcium was 10.4; was taking calcium supplements then- now off- no results since; had recent PTH and vit D levels checked and were normal Regarding abnormal kidney imaging: incidental finding- CT Mar 2022 Kidneys: A few low-attenuation lesions visualized in the bilateral . kidneys with attenuation higher than that of water, measuring up to 8 mm. No hydronephrosis. No FH of renal cancer or kidney disease PAST MEDICAL HISTORY: PAST MEDICAL HISTORY Diagnosis Date Cystocele with prolapse s/p hysterectomy Diverticulitis 03/15/2021 Essential hypertension situational- trying to get off medication Mixed hyperlipidemia Diet Controlled - Vegan Multiple cysts of breast Spider veins of limb Uterine prolapse Vegan diet PAST SURGICAL HISTORY: PAST SURGICAL HISTORY Procedure Laterality Date COLONOSCOPY 05/2022 Dr. Chirinos, repeat in 10 years per patient COLONOSCOPY GEN ANES 2013 Dr. Chirinos-reportedly negative/normal. TOTAL ABD HYSTERECTOMY+BLAD REPR 11/02/2019 for tx of uterine and bladder prolapse. FAMILY HISTORY: FAMILY HISTORY Problem Relation Age of Onset No Known Problems Mother Arthritis Father Heart Attack Father 65 Prostate Cancer Father No Known Problems Sister No Known Problems Maternal Grandmother No Known Problems Maternal Grandfather No Known Problems Paternal Grandmother No Known Problems Paternal Grandfather other (Pulmonary Embolus) Daughter No Known Problems Daughter No Known Problems Son No Known Problems Son SOCIAL HISTORY: Social History Tobacco Use Smoking status: Never Smokeless tobacco: Never Vaping Use Vaping Use: Never used Substance Use Topics Alcohol use: Yes Comment: rare Drug use: Never MEDICATIONS: anastrozole (ARIMIDEX) 1 mg tablet Take 1 tablet by mouth once daily. DHEA vaginal suppository 4 mg (CPD) Unwrap and insert 1 suppository vaginally every other night. lisinopril 2.5 mg tablet Take 1 tablet by mouth once daily. ALLERGIES: ALLERGIES Allergen Reactions Seasonal Allergies Other: See Comments REVIEW OF SYSTEMS: GENERAL: No complaints RESPIRATORY: No complaints CARDIOVASCULAR: No complaints GI: No complaints : No complaints MUSCULOSKELETAL: Negative for joint pain or swelling, back pain or muscle pain SKIN: No complaints HEMATOLOGY/LYMPHOLOGY: No complaints ENDOCRINE: No complaints NEURO: No complaints PHYSICAL EXAM: BP 121/82 (BP Site: Right Arm, BP Position: Sitting, BP Cuff Size: Regular Adult) Pulse 69 Temp 36.6 C (97.8 F) (Oral) Ht 165 cm (5' 4.96) Wt 59.3 kg (130 lb 11.7 oz) BMI 21.78 kg/m Average BP: 121/82 AOBP - Standardized BP Measurement BP #1: 121/83 Pulse #1: 71 beats/min BP #2 : 121/81 Pulse #2 : 65 beats/min BP #3 : 121/81 Pulse #3 : 69 beats/min Average BP: 121/82 Average Pulse: 69 beats/min BP cuff location: Right upper arm BP cuff size: regular adult Orthostatic Vitals Standing BP : 109/76 Standing pulse : 72 Constitutional:Pleasant Eyes: EOMI and Conjunctiva clear Ear, Nose and Throat: Moist mucous membranes Neck: Trachea midline Cardiovascular: RRR, normal S1/S2, no murmur/ rubs or gallops Respiratory: On room air, no respiratory distress, Bilateral entry, and CTABL Abdomen: not distended, thing Musculoskeletal: Normal muscle mass Neurologic: AOOX3 and No focal motor deficits Psychiatric: Calm and cooperative Skin: warm and moist DATA: Diagnostic tests reviewed for today's visit: LABS Creatinine (mg/dL) Date Value 01/06/2023 0.61 04/13/2022 0.70 03/06/2022 0.66 06/21/2020 0.60 BUN (mg/dL) Date Value 01/06/2023 13 04/13/2022 13 03/06/2022 18 06/21/2020 14 Sodium (mmol/L) Date Value 01/06/2023 142 04/13/2022 141 03/06/2022 141 06/21/2020 141 Potassium (mmol/L) Date Value 01/06/2023 4.5 04/13/2022 4.4 03/06/2022 4.3 06/21/2020 3.9 CO2 (mmol/L) Date Value 01/06/2023 24 04/13/2022 23 03/06/2022 25 06/21/2020 25 Hemoglobin (g/dL) Date Value 01/06/2023 14.7 04/13/2022 14.6 03/06/2022 15.1 06/21/2020 14.3 WBC (k/uL) Date Value 01/06/2023 7.53 04/13/2022 5.63 03/06/2022 7.34 06/21/2020 6.81 Platelet Count (k/uL) Date Value 01/06/2023 270 04/13/2022 222 03/06/2022 211 06/21/2020 227 Creatinine, Ur Random (UCRR) (mg/dL) Date Value 01/23/2023 45.3 Protein, Urine Random (mg/dL) Date Value 01/23/2023 5 No results found for: PROTTIMED No results found for: HBA1C Total Cholesterol, Nonfasting (mg/dL) Date Value 03/06/2022 196 06/21/2020 242 HDL Cholesterol, Nonfasting (mg/dL) Date Value 03/06/2022 65 06/21/2020 64 LDL Cholesterol, Nonfasting (mg/dL) Date Value 03/06/2022 117 06/21/2020 156 Triglycerides, Nonfasting (mg/dL) Date Value 03/06/2022 72 06/21/2020 112 . Recent Labs 01/06/23 1052 HB 14.7 Recent Labs 01/23/23 1052 01/06/23 1052 PTH 52 -- ALKPHOS -- 58 VITD25 -- 29.7* CA -- 10.4* ALB -- 4.9 No results for input(s): HEPSABQ in the last 1440 hours. Invalid input(s): HEPSABG No results found for: TIFFANIE, CANCAPR3, CANCAFL, PANCAMPO, PANCAF IMAGING See HPI URINE ANALYSIS Urine chemistry findings reviewed pH, Urine Date Value Ref Range Status 06/07/2022 6.5 5.0 - 8.0 Final Specific Underwood, Ur Date Value Ref Range Status 06/07/2022 1.018 1.005 - 1.030 Final Glucose, Urine Date Value Ref Range Status 06/07/2022 Negative Trace, Negative Final Bilirubin, Urine Date Value Ref Range Status 06/07/2022 Negative Negative Final Ketones, Urine Date Value Ref Range Status 06/07/2022 Negative Trace, Negative Final Hemoglobin/Blood,Ur Date Value Ref Range Status 06/07/2022 Negative Negative, Trace Final Protein, Urine Date Value Ref Range Status 06/07/2022 Trace Trace, Negative Final Urobilinogen Date Value Ref Range Status 06/07/2022 Negative Negative Final Nitrites Date Value Ref Range Status 06/07/2022 Negative Negative Final WBC, Urine Date Value Ref Range Status 06/07/2022 0-5 /HPF 0-5 /HPF Final ASSESSMENT AND PLAN 62 year old female with PMH of HTN, left breast cancer s/p masectomy 01/13,on anastrozole, recent diagnosis of osteoporosis here evaluation of hypercalcemia/kidney lesions. She is actually seeing endocrinology later today for the hypercalcemia and saw her internal medicine doctor yesterday who told her actually needed to see urology for the abnormal kidney imaging, but eventually decided to keep appointment with me anyway today. She is originally from [place]. # N28.89 Other specified disorders of kidney and ureter (primary encounter diagnosis) # R93.429 Abnormal finding on diagnostic imaging of kidney: last imaging almost 1 year ago # E83.52 Hypercalcemia: mild and could have been just transient and associated with oral calcium use. Now off calcium. Has osteoporosis. Normal PTH and vit D levels. H/o breast cancer s/p treatment Plan -labs today : hypercalcemia labs and Cr pre CT contrast; normal baseline Cr -endocrinology appointment for hypercalcemia as planned -urology consult to confirm best imaging is CT contrast as I ordered; she wants to minimize radiation but will do it if indicated- I offered MRI but she would prefer CT to MRI. Once she knows who she will see from urology I will message the physician to confirm best imaging and let her know Orders Placed This Encounter CT UROGRAM WO/W IVCON Standing Status: Future Standing Expiration Date: 04/26/2024 Order Specific Question: Perform test with 3D reconstruction? Answer: YES Order Specific Question: Is this patient < 40 years old with low TCC risk? Answer: No Renal Function Panel Standing Status: Future Number of Occurrences: 1 Standing Expiration Date: 06/27/2023 Calcium, Ionized Standing Status: Future Number of Occurrences: 1 Standing Expiration Date: 06/27/2023 VITAMIN D1 25-DIHYDR Standing Status: Future Number of Occurrences: 1 Standing Expiration Date: 06/27/2023 PTH INTACT BLD Standing Status: Future Number of Occurrences: 1 Standing Expiration Date: 06/27/2023 Vitamin D 25 Hydroxy Standing Status: Future Number of Occurrences: 1 Standing Expiration Date: 06/27/2023 iv contrast (will be provided with radiology test) Sig: CT Urogram WO/W Inject, intravenously, once for 1 dose.No IV access, insert saline lock prior to the beginning of sedation, infusion, injection of imaging exam. Discontinue saline lock post exam. If Pt. has a central line or IVAD, may access for administration according to line specific nursing protocol. Once exam is complete flush line and de-access according to line specific nursing protocol in the CT contrast administration guidelines link. Dispense: 1 Each Refill: 0 0.9 % sodium chloride (NACL 0.9%) infusion Sig: Administer at rate defined per CT contrast administration specifications. To be provided with radiology test. Dispense: 150 mL Refill: 0 Follow up as needed Patient is aware to call or communicate via MyChart with any questions/ concerns Plan of care discussed with patient, all questions answered I spent 60 minutes face to face with patient in this visit, with more than 50% of the total [id number] time of the visit in counseling, coordination of care, and discussion of above topics . SIGNATURE: Natanael Kwok MD PATIENT NAME: DATE: March 28, 2023 TIME: 11:21 AM Office number: [phone] CC: REFERRING PROVIDER: Kimberlee Lion MD PRIMARY CARE PHYSICIAN: Ross Sanders MD, PhD documented in this encounter [facility] 03-06-2023 History of Present illness Narrative Images from the original note were not included. BREAST MEDICAL ONCOLOGY VISIT NOTE HISTORY AND PHYSICAL EXAMINATION PATIENT NAME: Fang Killian AGE: [age] year old CHIEF COMPLAINT: Breast Cancer as described below: PRIMARY CANCER: left IDC ER 91-100%/ WY 61-70%/ HER2 (2+) by IHC, NEG by FISH Grade 2 Prognostic Stage IA [T1p(15mm by biopsy core length ) N1mi M0 ] breast cancer. Cancer Staging Invasive carcinoma of breast (HCC) Staging form: Breast, AJCC 8th Edition - Clinical stage from 01/06/2023: Stage IA (cT1c, cN0, cM0, G2, ER+, WY+, HER2-) - Signed by Kimberlee Lion MD on 01/06/2023 - Pathologic: Stage IA (pT1c, pN1mi(f), cM0, G2, ER+, WY+, HER2-, Oncotype DX score: 13) - Signed by Kimberlee Lion MD on 03/05/2023 CURRENT TREATMENT: Arimidex started 02/10/23 [No matching plan found] GENETICS: in 12/2022 Declined offer for referral. Has NO FDR with cancers. I think this is just fine. Menopausal status at the time of cancer diagnosis: POST No LMP recorded. Patient has had a hysterectomy. ONCOLOGIC HISTORY: 11/12/22: Screening Mammogram/US reported abnormality in L breast. There is a 1.1 cm x 0.9 cm x 1 cm oval mass with an indistinct margin in the left breast at 12 o'clock anterior depth. Directed ultrasound of the left axilla was negative. There is some ductal dilation near the mass possibly due to obstruction by the mass. 12/20/22: Biopsy reported a 12mm core of LEFT IDC ER 91-100%/ WY 61-70%/ HER2 (2+) by IHC, NEG by FISH Grade 2. 01/15/23: Mastectomy noted pT1c(15mm)pN1mi (1micromet of 2mm, 1ist, 5LN examined) 02/07/13: Osteoporosis on DEXA. 02/10/23: Arimidex start INTERVAL HISTORY: Here for endocrine toxicity check She denies arthralgia, mood disturbances, insomnia, fatigue, hot flashes, or On DHEA for vaginal atrophy. Reviewed osteoporosis, doesn't want Zometa at this time until she talks to endo. Does not want RT. Review of Systems: Reviewed and otherwise negative PAST MEDICAL HISTORY Diagnosis Date Cystocele with prolapse s/p hysterectomy Diverticulitis 03/15/2021 Essential hypertension situational- trying to get off medication Mixed hyperlipidemia Diet Controlled - Vegan Multiple cysts of breast Spider veins of limb Uterine prolapse Vegan diet PAST SURGICAL HISTORY Procedure Laterality Date COLONOSCOPY 05/2022 Dr. Chirinos, repeat in 10 years per patient COLONOSCOPY GEN ANES 2012 Dr. Chirinos-reportedly negative/normal. TOTAL ABD HYSTERECTOMY+BLAD REPR 11/02/2019 for tx of uterine and bladder prolapse. Family History Problem Relation Age of Onset No Known Problems Mother Arthritis Father Heart Attack Father 65 Prostate Cancer Father No Known Problems Sister No Known Problems Maternal Grandmother No Known Problems Maternal Grandfather No Known Problems Paternal Grandmother No Known Problems Paternal Grandfather other (Pulmonary Embolus) Daughter No Known Problems Daughter No Known Problems Son No Known Problems Son Social History Tobacco Use Smoking status: Never Smokeless tobacco: Never Vaping Use Vaping Use: Never used Substance Use Topics Alcohol use: Yes Comment: rare Drug use: Never Current Outpatient Medications Medication Sig Dispense Refill anastrozole (ARIMIDEX) 1 mg tablet Take 1 tablet by mouth once daily. 90 tablet 3 DHEA vaginal suppository 4 mg (CPD) Unwrap and insert 1 suppository vaginally every other night. 45 Suppository 3 estradiol (ESTRACE) 0.01 % (0.1 mg/gram) vaginal cream INSERT 0.5 GRAMS VAGINALLY TWICE PER WEEK FOR 90 DAYS 42.5 g 1 oxyCODONE IR (ROXICODONE) 5 mg immediate release tablet Take 1 tablet by mouth every 8 hours as needed for pain. (Patient not taking: Reported on 01/22/2023) 8 tablet 0 lisinopril 2.5 mg tablet Take 1 tablet by mouth once daily. 30 tablet 2 No current facility-administered medications for this visit. ALLERGIES: Seasonal Allergies OBJECTIVE There were no vitals taken for this visit. General: well-appearing, in no acute distress Skin: Skin color, texture, turgor normal, no suspicious rashes or lesions Eyes: Anicteric sclera. Extraocular movements are intact Lungs: Lungs clear to auscultation. No wheezing, rhonchi, rales Heart: RRR without murmur, gallop, rubs noted Abdomen: Abdomen soft, non-tender. Bowel sounds normal. No masses, organomegaly Extremities: No joint swelling, deformity, clubbing, or tenderness in the upper or lower extremities Neuro: generally intact Left breast: s/p mastectomy, steri strips in place. LABS: NA PATHOLOGY: As above IMAGING: As per above ASSESSMENT: This is a 62 year old female with a new diagnosis of stage IA HR+ HER2- breast CA s/p mastectomy. She opted for NO radiation. She wants to think about Zometa. Arimidex started 02/10/23. Cancer Staging Invasive carcinoma of breast (HCC) Staging form: Breast, AJCC 8th Edition - Clinical stage from 01/06/2023: Stage IA (cT1c, cN0, cM0, G2, ER+, WY+, HER2-) - Signed by Kimberlee Lion MD on 01/06/2023 - Pathologic: Stage IA (pT1c, pN1mi(f), cM0, G2, ER+, WY+, HER2-, Oncotype DX score: 13) - Signed by Kimberlee Lion MD on 03/05/2023 PLAN Endocrine Therapy: She has a significant family history (DTR) with pulmonary embolus relating to OCPs at age 25. Discussed Ding and Arimidex and chemocare given on both at prior visit. She decided on arimidex. DEXA 02/07/23 notes OSTEOPOROSIS. She wants to think about Zometa. Continue Arimidex 1mg PO, started 02/10/23. Plan for 5-10 years. HOLD OFF on vit D and calcium given elevated calcium in blood. Follows with sexual health for vaginal atrophy. Is on DHEA cream, which is effective for her. Hypercalcemia: History of Calcium oxylate in urine. Elevated calcium with normal PTH. Has appts with nephrology and endo 03/2023. RTC 1 month for SV. Mammo due June 2023 with MD visit. Appointments for Next 60 Days Date Time Provider Location Dept Phone 03/06/2023 3:00 PM KIMBERLEE LION CA [facility] [phone] 03/21/2023 10:30 AM AMANDA VALENZUELA [phone] 03/27/2023 3:00 PM SKYLER MIRZA G [facility] [phone] 03/28/2023 11:00 AM NATANAEL ECHEVERRIA Mn Q [facility] [phone] 04/07/2023 12:20 PM PETTY SHEA F [facility] [phone] Signed, Kimberlee Lion MD Associate Staff [facility] 03/05/2023 I spent a total of 30 minutes on the date of the service which included preparing to see the patient, [id number] patient care, completing clinical documentation, obtaining and/or reviewing separately obtained history, performing a medically appropriate examination, counseling and educating the patient/family/caregiver, ordering medications, tests, or procedures, and communicating results to the patient/family/caregiver. documented in this encounter [facility] 03-06-2023 Nurse Note Additional intake questions: Has the patient had fever, nausea, vomiting, diarrhea, constipation, fatigue for > 1 week? No Does the patient have a decreased appetite? No Does patient want to see a Pigment Pusher? No (yes to any of above refer patient to schedulers for dietitian appointment) ) Does patient have any new or increased numbness or tingling of extremities? Yes, new numbness in the left arm that started after therapy this week Is patient interested in fertility information? No Does patient need any prescription refills? No Does patient have an advanced directive in place? No documented in this encounter [facility] 03-03-2023 History of Present illness Narrative Episode Visit Count: 2 Therapist That Will Accept/Oversee The Plan Of Care: Amanda Valenzuela Start of Care Date: 02/12/23 Onset Date: 01/15/23 Patient Identified by Name and Date of : Yes REHABILITATION AND SPORTS THERAPY PHYSICAL THERAPY PROGRESS REPORT PLAN OF CARE UPDATE: Assessment: Fnag Killian demonstrates improvements in sleeping, reaching overhead, and use hand with arm at shoulder level. She has progressed toward goals. Patient continues to present with impairments in range of motion and soft tissue restrictions that interfere with reaching overhead, lifting . Current prognosis is Excellent due to: current objective clinical presentation, good overall health status, within-session changes, good support system/ coping skills . She will benefit from continued skilled therapy services to meet the updated goals for this plan of care as noted below. Goals for Episode of Care: created on 02/12/23 through 04/14/23 Goals updated on 03/03/2023. Patient will increase active ROM of L shld to 145-160deg flex and abd to allow pt to perform daily activities, home care, and required work activities. (Not Met)-progressing Patient able to verbalize skin care and lymphedema risk reductions (Met) Patient/family independent with home exercise program including skincare guidelines and ROM exercises (Met) Patient/family able to verbalize all pertinent aspects of CDT (Partially Met) Pt will demonstrate no soft tissue restrictions L UE or thoracic area. (Not Met) Patient / family independence with home program (Met) Patient Goals: Regain full use of L UE without pain. Planned Interventions, Frequency, and Duration: 1x every other week, 4 weeks Total Number of Visits Planned: 2 Patient to be seen for Therapeutic exercise (25990), Neuromuscular re-education (89504), Manual therapy (02832), Self-alf management (67976), Patient/Family/Caregiver Education PLAN FOR NEXT VISIT: Continue with stretches and manual techniques for soft tissue restrictions. SUBJECTIVE: Pt states she can move more and with less pain. Usually gets the mauro exercises done once a day. Notes she gets discomfort when she overuses it. She states she has caught herself usingthe arm more normally without thinking about it and is no longer guarding it. Functional Limitations: reaching overhead, lifting Pain: Pain Pain Level: 0 (2) Pain Location: Chest - Left Description: (more of a discomfort) Frequency: Intermittent Post Treatment Pain Post Treatment Pain Level: 0 Post Treatment Pain Location: Chest - Left (subaxillary) PROMIS Scales Higher is Better 02/10/2023 10/09/2022 08/21/2022 Phys Func - Score 29 (severe dysfunction) 43 (mild dysfunction) 41 (mild dysfunction) Phys Func - Percentile 2% 24% 18% Self-Eff Symptom - Score 34 (Low) 41 (Average) 41 (Average) Self-Eff Symptom - Percentile 5% 18% 18% T-scores: mean of general population = 50. 5 points is clinically meaningfully difference Percentiles provide an indication of how the patient's score ranks in relation to the general population. Higher percentile rankings indicate better function/quality of life. 50th percentile is the average of the general population and indicates half of respondents had a worse score. OBJECTIVE MEASURES WITH LEVEL OF FUNCTION: UE PROM R UE PROM: Passive shld flexion during pulleys to 145deg shld flex L Shoulder Flex: 125 Degrees (pulling through axilla/latera chest) L Shoulder ABduction: 123 Degrees (pulling axilla/lateral chest) L Shoulder External Rotation: 75 Degrees TREATMENT: Therapeutic Exercise: 1: seated shld pulleys for flexion ROM x 20 reps of sec holds 2: Reviewed HEP stretches and pt performing correctly. Skilled Intervention: Patient was educated in proper exercise technique and purpose for exercises. Reviewed and educated patient on additions/changes for home exercise program. Skilled judgment was used in selection of appropriate interventions. Correct performance of therapeutic exercises was facilitated with verbal and visual cuing. Additional time necessary for objective measurements and reassessment due to plan of care update. Patient education as noted. Manual Therapy: 1: Myofascial release to L anterior and lateral axilla, lateral chest, and anterolateral thoracic region with good releases appreciated. Skilled Intervention: Manual skills to improve joint mobility, ROM, and decrease pain. Utilized anatomy knowledge of the therapist, and assessment of patient's response to intervention. Billing Therapeutic Exercise Treatment Minutes: 15 Manual TherapyTreatment Minutes: 29 Skilled Treatment Time Minutes (timed and untimed codes): 44 Total Session Time (minutes): 44 Session Start Time : 1803 Session Stop Time : 1847 Amanda Valenzuela PT documented in this encounter [facility] 02-12-2023 History of Present illness Narrative Program_ID:[id number] Access Code: [email or web address] URL: [email or web address] Date: 02-12-2023 Prepared By: Amanda Valenzuela Program Notes Exercises - Supine Chest Stretch with Elbows Bent - 2-3 x daily - 7 x weekly - 1 - 10 - Seated Shoulder Flexion AAROM with Mauro Behind - 2-3 x daily - 7 x weekly - - Episode Visit Count: 1 Therapist That Will Accept/Oversee The Plan Of Care: Amanda Valenzuela Start of Care Date: 02/12/23 Onset Date: 01/15/23 Patient Identified by Name and Date of : Yes REHABILITATION AND [facility] PHYSICAL THERAPY EVALUATION PLAN OF CARE: Assessment: Fang Killian presents with diagnosis of malignant neoplasm of L breast, s/p L mastectomy with ASLN biopsy that interferes with reaching overhead, lifting, cooking (raking leaves) . She presents with impairments in overall function, range of motion, soft tissue healing, and tissue tenderness. PROMIS (Patient-Reported Outcomes Measurement Information System) scores were reviewed and physical function domain and self efficacy domain identified as within normal limits. Prognosis for therapy is Excellent due to: current objective clinical presentation, good overall health status, within-session changes, good support system/ coping skills . She will benefit from skilled therapy services to meet the goals established for this plan of care as noted below. Goals for Episode of Care: created on 02/12/23 through 04/14/23 Patient will increase active ROM of L shld to 145-160deg flex and abd to allow pt to perform daily activities, home care, and required work activities. Patient able to verbalize skin care and lymphedema risk reductions Patient/family independent with home exercise program including skincare guidelines and ROM exercises Patient/family able to verbalize all pertinent aspects of CDT Pt will demonstrate no soft tissue restrictions L UE or thoracic area. Patient / family independence with home program Patient Goals: Regain full use of L UE without pain. Planned Interventions, Frequency, and Duration: Current Frequency: 1x every other week Duration: 8 weeks Total Number of Visits Planned: 4 Planned Treatment Interventions: Therapeutic exercise (08404), Neuromuscular re-education (16492), Manual therapy (33461), Self-alf management (94679), Patient/Family/Caregiver Education PLAN FOR NEXT VISIT: Assess response to HEP. Reassess shld AROM. May progress stretches. May assess UE strength and address any functional limitations. Patient demonstrates good understanding of plan of care and treatment. The above goals and plan of care were discussed and agreed upon by patient/family. SUBJECTIVE: Pt reports she still has some pain. If I don't do anything it doesn't hurt. Pian is when trying to use the arm. Sensitive where the drain was. More in the incision area when using the arm. Limited to cooking about an hour. Plans to go back to work next Friday. Pt also notes having a hematoma in mid to early November causing her to reduce use of her L arm. Pt denies any swelling in L UE, but notes mild edema in area that drain was removed. Patient Goals: Regain full use of L UE without pain. 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 Home Environment Patient Lives With: Spouse Intake Information: Prescription present Previous Treatment: None Pain: Pain Pain Level: 0 (up to 4-5/10 with use of arm) Pain Location: Chest - Left Description: (pulling, stretching, sore) Frequency: Intermittent Post Treatment Pain Post Treatment Pain Level: 0 Post Treatment Pain Location: Chest - Left (subaxillary) Post Treatment Pain Description: (It just feels like I have stretched it a bit.) PROMIS Scales Higher is Better 02/10/2023 10/09/2022 08/21/2022 Phys Func - Score 29 (severe dysfunction) 43 (mild dysfunction) 41 (mild dysfunction) Phys Func - Percentile 2 % 24 % 18 % Self-Eff Symptom - Score 34 (Low) 41 (Average) 41 (Average) Self-Eff Symptom - Percentile 5 % 18 % 18 % T-scores: mean of general population = 50. 5 points is clinically meaningfully difference Percentiles provide an indication of how the patient's score ranks in relation to the general population. Higher percentile rankings indicate better function/quality of life. 50th percentile is the average of the general population and indicates half of respondents had a worse score. OBJECTIVE MEASURES WITH LEVEL OF FUNCTION: Lymphedema Presents with: Functional Limitations, Pain, Decreased knowledge of lymphedema management Lymphedema Contributing Factors: Lymph Node Removal Relative Contra-indications for Abdominal Sequences: Diverticulosis Skin: (normal throughout) Upper Extremity Circumferential Measurements R DPC (cm): 19 cm R Distal Wrist Crease (DWC) (cm): 15.5 cm R 4 cm above wrist (cm): 15.5 cm R 8 cm above wrist (cm): 16.5 cm R 12 cm above wrist (cm): 18.5 cm R 16 cm above wrist (cm): 21 cm R 20 cm above wrist (cm): 22 cm R 24 cm above wrist (cm): 22.5 cm (elbow) R 28 cm above wrist (cm): 21.5 cm R 32 cm above wrist (cm): 23.5 cm R 36 cm above wrist (cm): 24.5 cm R 40 cm above wrist (cm): 26 cm R 44 cm above wrist (cm): 27 cm L DPC (cm): 19.5 cm L Distal Wrist Crease (DWC) (cm): 16 cm L 4 cm above wrist (cm): 15.5 cm L 8 cm above wrist (cm): 17 cm L 12 cm above wrist (cm): 20 cm L 16 cm above wrist (cm): 22.5 cm L 20 cm above wrist (cm): 23.5 cm L 24 cm above wrist (cm): 23 cm (elbow) L 28 cm above wrist (cm): 22.5 cm L 32 cm above wrist (cm): 23.5 cm L 36 cm above wrist (cm): 25 cm L 40 cm above wrist (cm): 27 cm Affected Arm : Left Arm Calculate Volume : Yes R Upper Extremity Volume: 1610.75 L Upper Extremity Volume: 1493.1 Difference in Volume: -117.65 Difference in % : -7.3 UE PROM R UE PROM: AROM, extension 67deg L UE PROM: AROM, extension 70deg R Shoulder Flex: 145 Degrees R Shoulder ABduction: 140 Degrees R Shoulder Internal Rotation: (back of hand to scapular spine) R Shoulder External Rotation: 65 Degrees L Shoulder Flex: 125 Degrees (subaxillary and lateral chest pulling) L Shoulder ABduction: 113 Degrees (subaxillary and lateral chest pulling) L Shoulder Internal Rotation: (back of hand to scapular spine) L Shoulder External Rotation: 67 Degrees Education: Education Learning Preferences: Demonstration, Explanation Barriers: None Learning/educational needs: Home exercise program, Plan of Care, Lymphedema Program Education Provided: Yes, see treatment interventions for education provided Education Provided To: Patient Education Mode/Type: Demonstration, Explanation/Discussion, Literature/Printed Materials, Performance Response to Education/Teach Back: States/Identifies, Return Demonstration TREATMENT: PT Treatment Interventions: Therapeutic Exercise, Self-Skilled Nursing Management Evaluation Therapeutic Exercise: 1: *seated butterfly stretch 2 x 20 sec 2: *seated shld pulleys for flexion ROM x 5 min with 20 sec holds 3: Reviewed wall stretch for shld flex pt is already performing correctly. Skilled Intervention: Patient was educated in proper exercise technique and purpose for exercises. Skilled judgment was used in selection of appropriate interventions. Provided written instruction for home exercise program to facilitate proper performance and compliance. Correct performance of therapeutic exercises was facilitated with verbal and visual cuing. Patient education as noted. Self-Skilled Nursing Management: 1: Educated pt in lymphedema and treatment options if needed in the future. Pt to observe current edema and notify therapist if does not resolve or if worsens. Skilled Intervention: Skilled judgment in the selection of proper modification for activity of daily living/home management based on clinical presentation, deficits, and needs. Educated the patient regarding recommendations and provided written instruction to facilitate compliance. Reviewed patient specific diagnosis in relation to activities of daily living/home management. Billing * Evaluation Low Complexity: 1 Unit Therapeutic Exercise Treatment Minutes: 23 Self-Care/Home Management Treatment Minutes: 5 Skilled Treatment Time Minutes (timed and untimed codes): 50 Total Session Time (minutes): 50 Session Start Time : 1015 Session Stop Time : 1105 Amanda Valenzuela PT documented in this encounter [facility] 01-24-2023 Miscellaneous Notes Oncotype ordered via [employer] portal as requested by Dr. Lion. Order, pathology report and insurance information faxed to [employer]. Flor Moffett RN documented in this encounter [facility] 01-23-2023 History of Present illness Narrative Radiation Oncology Follow Up Note PATIENT NAME: Fang Killian PATIENT DIAGNOSIS: 62 year old female with infiltrating ductal carcinoma of the Left breast, pathologic stage [id number], ER-positive, WY-positive, and Her2/marco a equivocal, 1/5 lymph nodes on SLNB with 2 mm micromet and another lymph node with ITC, s/p left breast total/simple mastectomy, left SLNB on 01/15/23 INTERVAL HISTORY: Fang Killian presents for follow up 1 week after left total mastectomy and left SLNB on 01/15/2023. She is healing well. Having some pain that is manageable. No signs of infection, drain removed today. She otherwise feels well with no other complaints. Final pathology from her left total mastectomy and left axillary sentinel node biopsy: FINAL DIAGNOSIS A. 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 - Isolated tumor cells in one lymph node. B. Left breast, mastectomy: - Invasive ductal carcinoma, Ene grade 2, 15 mm, negative margins; see comment. - Ductal carcinoma in situ, intermediate nuclear grade, solid pattern, negative margins. - Apocrine metaplasia and columnar cell change. - Biopsy site changes. - Calcifications in association with ductal carcinoma in situ and benign ducts. - Nipple and skin, not involved by carcinoma. - Skeletal muscle, not involved by carcinoma. 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 C. Left breast, lateral margin, excision: Benign breast tissue. ALLERGIES Allergen Reactions Seasonal Allergies Other: See Comments anastrozole (ARIMIDEX) 1 mg tablet Take 1 tablet by mouth once daily. DHEA vaginal suppository 4 mg (CPD) Insert one DHEA suppository. Please note the lower dose of 4mg. Every other night vaginally. estradiol (ESTRACE) 0.01 % (0.1 mg/gram) vaginal cream INSERT 0.5 GRAMS VAGINALLY TWICE PER WEEK FOR 90 DAYS oxyCODONE IR (ROXICODONE) 5 mg immediate release tablet Take 1 tablet by mouth every 8 hours as needed for pain. (Patient not taking: Reported on 01/22/2023) lisinopril 2.5 mg tablet Take 1 tablet by mouth once daily. PHYSICAL EXAM: VS: There were no vitals taken for this visit. KPS: 80 General Appearance: Alert and oriented. No acute distress. HEENT: NCAT. Sclera anicteric. EOMI. Neck: Normal ROM. Chest: No respiratory distress. Heart: No cyanosis. Abdomen: Nondistended. Musculoskeletal: No edema. Normal ROM in extremities. Neuro: Speech fluent. No focal deficits. Skin: No rashes noted ASSESSMENT/PLAN: Fang Killian is a 62 year old female with infiltrating ductal carcinoma of the Left breast, pathologic stage [id number], ER-positive, WY-positive, and Her2/marco a equivocal, 1/5 lymph nodes on SLNB with 2 mm micromet and another lymph node with ITC, s/p left breast total/simple mastectomy, left SLNB on 01/15/23. The clinical history, imaging findings, and pathology results were reviewed in detail with Fang Killian. The general treatment paradigm of LN micromets after mastectomy was discussed. To provide further detail, the rationale, logistics, benefits, risks, side effects, and alternatives of radiotherapy were reviewed. She will discuss the options with her family and get back to us on if she would like to proceed. Mariana Ayoub MD Radiation Oncology Resident PGY-3 Attending Note: I agree with the resident's finding and plan with the following revisions and/or additions. I have reviewed and affirmed the diagnosis. Pathology reviewed. I discussed role of RT with micromets and based on size micro vs. Macromet. Reviewed data with regional rosmery irradiation (MA20) with macrometastases. Discussed RT may reduce risk of locoregional recurrences but not clear survival benefit. The logistics of radiation were discussed including acute, subacute, and chronic toxicities. The risks, benefits, alternatives, consent and personnel of radiation therapy were fully discussed with the patient. She will inform me of her decision if she wishes to proceed. Kierra German MD Medical Decision Making: Problems: High: Illness/injury w/ threat to life/body function Data: Unique test result(s) reviewed: 1 Independent interpretation of test from other physician/QHCP Risk: Moderate: Moderate risk from testing/treatment Medical Decision Making Level: 4 - Moderate cc: To use this Smartlink, specify the provider ID whose address you want to display, e.g., .[email or web address] (where 1 is the provider ID). Nona Phillips [address] [place] [address] Kimberlee Lion MD documented in this encounter [facility] 01-23-2023 Nurse Note Reviewed and confirmed with patient that there were no changes in the the nursing assessment and vitals that were completed on 01/23/2023 during previous provider appointment. Kristin Joe MA documented in this encounter [facility] 01-14-2023 Miscellaneous Notes Bone Density Order faxed to [facility] at [phone]. documented in this encounter [facility] 01-13-2023 Miscellaneous Notes RIANNA: 04/16/22 with PCP NOV: Will be establishing care with a new [facility] provider 03/27/23 Last refill: 10/07/22 With 30 and 2 refills Marta Hurst MA documented in this encounter [facility] 01-08-2023 Instructions Ewa Morris PA-C - 01/08/2023 2:45 PM EDT PATIENT PREOPERATIVE INSTRUCTIONS Dr. Phillips has scheduled you for your procedure at this surgery center: [facility] [place] [facility] Scheduling Office: [phone] --[address] [place] [id number]. Please read below carefully for your personalized instructions. Arrival Time for Surgery: - To obtain your arrival time for surgery, call your physician's office the day before your surgery. - If your surgery is scheduled for Friday, call the Friday before. Your surgeon s cert pharmacy tech will tell you what time to call the office. - If you have not reached the departmental cert pharmacy tech by 5 P.M., call [phone] after 5 P.M. the day before your surgery. Please be aware that emergency situations arise, which may delay or change your surgical time. If this happens, we will notify you as soon as possible and regret any inconvenience. Dietary Restrictions: - No solid food after midnight. - You may have 12 ounces of clear liquids (water, clear juices such as apple juice or gatorade, carbonated beverages, clear tea, black coffee, jello) until 2 hours before scheduled arrival at facility. Medications: Pre-Surgery Med Instructions Medication Instructions lisinopril 2.5 mg tablet Do not take for 24 hours prior to surgery If you start any new medications after today's visit, please contact the surgeon's office. Blood Thinning Medications: - Stop NSAIDS (Ibuprofen, Advil, Aleve, Motrin, Celebrex, Mobic, etc.) today. - Stop Aspirin today - Stop Vitamin E, ALL multi-vitamins, herbals and dietary supplements today - You may take Tylenol (Acetaminophen) or any of your pain medications that do not contain aspirin or NSAIDS as needed. Important Reminders: - Candy, mints, and tobacco products are NOT permitted the morning of surgery. - Hearing aids, dentures and glasses may be worn the morning of surgery. - NO jewelry, body piercings, makeup, hairpins or contacts are to be worn the day of surgery. If you develop symptoms such as a fever, cold, or flu, or have other changes to your health within TWO DAYS of scheduled surgery or the morning of surgery, please contact the surgery center above. Personal Belongings: -Please have photo ID and insurance cards. -If you do not have a copy of advance directives on file with us, please bring a copy with you on the day of surgery. - Leave ALL valuables and money at home or with family members. For Outpatient Procedures: - YOU MUST HAVE A RESPONSIBLE PEN TENDER TAKE YOU HOME. A TIRE BUILDER HEAVY SERVICE OR PAD HAND CANNOT BE MADE A RESPONSIBLE PEN TENDER. - We recommend that a responsible person stays with you overnight to take care of you. - You cannot stay in a hotel alone after outpatient surgery. You will not be permitted to have your surgery, if you do not have someone to take care of you. Please be aware that emergency situations arise, which may delay or change your surgical time. If this happens, we will notify you as soon as possible and regret any inconvenience. If you already have an Advance Directive, please fax a copy to [phone] or email to for it to be added to your chart. If you do not have an Advance Directive, you can find the appropriate form and more information at [email or web address]. We recommend that you complete the Advance Directive form found on the website and bring it with you the day of your surgery. It can be witnessed and scanned into your chart that day. Ewa Morris PA-C documented in this encounter [facility] 01-08-2023 History and physical note HISTORY AND PHYSICAL EXAMINATION SERVICE DATE: 01/08/2023 SERVICE TIME: 2:45 PM PRIMARY CARE PHYSICIAN: No primary care provider on file. REASON FOR VISIT: Fang Killian is a 62 year old female who is scheduled for PACC at the request of Dr. Phillips for consultation. My final recommendation will be communicated back to the requesting physician by way of shared medical record or letter. The patient has the following: ACTIVE PROBLEM LIST Essential Hypertension Mixed Hyperlipidemia Cystocele With Prolapse Multiple Cysts of Breast Spider Veins of Limb Urinary Urgency Muscle Weakness Invasive Carcinoma of Breast (Hcc) Subjective CHIEF COMPLAINT: breast cancer HPI: Fang is a 62 y/o female who was recently diagnosed with left breast cancer, after undergoing workup for a lump noted on self exam. Biopsy of the mass revealed invasive ductal carcinoma. There is no known family history of breast cancer. Surgery is scheduled for 01/15. PAST MEDICAL HISTORY Diagnosis Date Cystocele with prolapse s/p hysterectomy Diverticulitis 03/15/2021 Essential hypertension situational- trying to get off medication Mixed hyperlipidemia Diet Controlled - Vegan Multiple cysts of breast Spider veins of limb Uterine prolapse Vegan diet PAST SURGICAL HISTORY Procedure Laterality Date COLONOSCOPY 05/2022 Dr. Chirinos, repeat in 10 years per patient COLONOSCOPY GEN ANES 2012 Dr. Chirinos-reportedly negative/normal. TOTAL ABD HYSTERECTOMY+BLAD REPR 11/02/2019 for tx of uterine and bladder prolapse. FAMILY HISTORY Problem Relation Age of Onset No Known Problems Mother Arthritis Father Heart Attack Father 65 Prostate Cancer Father No Known Problems Sister No Known Problems Maternal Grandmother No Known Problems Maternal Grandfather No Known Problems Paternal Grandmother No Known Problems Paternal Grandfather other (Pulmonary Embolus) Daughter No Known Problems Daughter No Known Problems Son No Known Problems Son SOCIAL HISTORY: Social History Tobacco Use Smoking status: Never Smokeless tobacco: Never Vaping Use Vaping Use: Never used Substance Use Topics Alcohol use: Yes Comment: rare Drug use: Never Prior to Admission medications as of 01/08/23 1529 Medication Sig Last Dose Taking lisinopril 2.5 mg tablet Take 1 tablet by mouth once daily. Yes calcium carbonate/vitamin D2 (CALCIUM + VITAMIN D ORAL) Take by mouth. Yes estradiol (ESTRACE) 0.01 % (0.1 mg/gram) vaginal cream INSTILL 0.5 GRAMS VAGINALLY TWICE PER WEEK FOR 90 DAYS No medication comments found. ALLERGIES Allergen Reactions Seasonal Allergies Other: See Comments COVID-19 Immunization Status Covid-19 Vaccine (Series Information) Completed 12/27/2022 Imm Admin: COVID-19 vaccine, age 12+ yr, 2022- season ([employer]) 01/25/2022 Imm Admin: COVID-19 vaccine, age 12+ yr, bivalent ([employer]) 10/05/2021 Imm Admin: COVID-19 original vaccine, age 12+ yr, monovalent ([employer] - [employer]) Only the first 3 history entries have been loaded, but more history exists. REVIEW OF SYSTEMS: PAIN ASSESSMENT: General: No weight loss, malaise or fevers. Neuro: Negative for headaches, seizures, tremor or stroke Respiratory: Negative for cough, wheezing or shortness of breath. Negative for hemoptysis. Negative for sleep apnea. Cardiovascular: Negative for chest pain, orthopnea, PND, dizziness, lightheadedness or syncope. Negative for heart murmur. Negative for palpitations or arrhythmia. Negative for h/o DVT/PE. Negative for LE edema +HTN, +HLD GI: Negative for abdominal pain, blood in the stool, black stools or change in bowel habits : No history of UTI in past 6 weeks. No history of renal failure. Not currently on or requiring dialysis. 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 : N/A, No LMP recorded. Patient has had a hysterectomy. Endocrine: Negative for polyuria, polydipsia, heat or cold intolerance. Negative for goiter Hematology: No history of bleeding or clotting disorder. Pt is not taking anti-coagulation or platelet medications. No history of hematological symptoms or problems. Oncology: See HPI Psych: No history of psychiatric symptoms or problems. Musculoskeletal: Negative for joint pain or swelling, back pain or muscle pain. Skin: Negative for lesions, rash and itching. Objective PHYSICAL EXAM: VITALS: BP 129/67 Pulse 78 Temp (Src) 97.8 (Temporal) Ht 5' 6 (1.68m) Wt 126 lb (57.2kg) SpO2 99% BMI 20.35 kg/(m^2). General: Alert and oriented Skin: Normal color, no rash, no lesions. HEENT: EOM, pupils equal, round and reactive. Cardiovascular: Normal S1 & S2, no rubs, murmurs or gallops. No JVD. Pulse regular. Lungs: Normal breath sounds, no wheezes or crackles. Abdomen: Soft, non-tender, no rigidity. Extremities: No deformity, no edema or tenderness, no joint swelling or clubbing. Neurological: Normal cognition and motor skills. Pulses: Carotid and radial pulses normal +2. Diagnostic tests reviewed for today's visit: Lab Value Units Date High Low HB 14.7 g/dL 01/06/2023 15.5 11.5 HCT 44.8 % 01/06/2023 46.0 36.0 WBC 7.53 k/uL 01/06/2023 11.00 3.70 PLT 270 k/uL 01/06/2023 400 150 NA 142 mmol/L 01/06/2023 144 136 K 4.5 mmol/L 01/06/2023 5.1 3.7 GLUC 127 mg/dL 01/06/2023 99 74 BUN 13 mg/dL 01/06/2023 21 7 CREAT 0.61 mg/dL 01/06/2023 0.96 0.58 PTSEC No results within date range. INR No results within date range. APTT No results within date range. ALT 21 U/L 01/06/2023 38 7 AST 20 U/L 01/06/2023 35 13 TBILI 0.5 mg/dL 01/06/2023 1.3 0.2 TSH No results within date range. Lab Value Units Date High Low HCGQT No results within date range. UHCG No results within date range. HCG, BODY* No results within date range. Lab Value Units Date High Low ABORHD No results within date range. ABSCREEN No results within date range. No results found for: HBA1C Most recent labs Assessment/Plan Essential hypertension Assessment: treated and managed by PCP Mixed hyperlipidemia Assessment: not on medication. Monitored by PCP METS: Climb a flight of stairs or walk up a hill (5.50 METs) Patient denies any chest pain or undue shortness of breath with the above physical activity. ANESTHESIA FINDINGS: Intubation History: No history of difficult intubation Significant Anesthesia Considerations: None Airway Exam: General: Normal appearance Mallampati Score is CLASS II ULBT: Class I - Lower incisors can bite the upper lip above the alex line Neck: Normal appearance and function Mouth: Mouth opening greater than 2 finger breaths Dentition: Intact, caps/crowns Airway History: No abnormal airway history 01/07/2023 Sleep Apnea Probability Snores loudly: Yes Tired, fatigued or sleepy in daytime: Yes Stops breathing or choking/gasping during sleep: No High blood pressure: Yes Sleep Apnea Probability Score 01/07/2023 Sleep Apnea Screen V2 24 (Sleep study not recommended) PLAN This patient is optimally prepared for surgery pending EKG. CONSULTS: Patient does not require consults for optimization at this time. The Following Tests/Procedures Have Been Initiated: EKG-surgeon's orders Planned Anesthetic: General Instructions Given to Patient: Instructions located in the after visit summary. Patient given verbal and written preop instructions and voices comprehension and compliance. SIGNATURE: Ewa Morris PA-C PATIENT NAME: Fang Killian DATE: January 08, 2023 TIME: 2:54 PM documented in this encounter [facility] 01-06-2023 History of Present illness Narrative Images from the original note were not included. [facility] [place] Department of General Surgery [facility] REASON for TODAY'S VISIT: Preop Surgical consult for breast cancer REFERRAL: Dr Ning Salinas PCP: Helder Egan MD My clinic note and plan will be communicated back to the referring physician by way of shared medical record and/or written letter via US mail. HISTORY of PRESENT ILLNESS: Fang Killian is a 62 year old postmenopausal female who presents today accompanied by a male relative, regarding a suspected but not confirmed diagnosis LEFT breast cancer first identified on self examination 1 month ago. She then underwent a mammogram and posteriorly an ultrasound that showed a Retroareolar Left abnormality. A Left biopsy was attempted and a large hematoma resulted from the procedure. Pathology was suggestive of invasive breast carcinoma but not conclusive. A second biopsy was scheduled, as well as an MRI. She presents today to discuss her results. Oncology History Invasive carcinoma of breast (HCC) 12/20/2022 Biopsy Breast, left, 12:00, subareolar, Bernard special education resource teacher reflector, biopsy: - Invasive ductal carcinoma with lobular features, provisional Skidmore grade 1-2, measuring at least 12 mm in greatest dimension. ER+, WY +, HER2 2+ FISH negative 12/20/2022 Imaging Breast, left, 12:00, subareolar, 12 mm in greatest dimension. BERNARD placed. 12/25/2022 Initial Diagnosis Invasive carcinoma of breast (HCC) 12/25/2022 Cancer Staged Cancer Staging No matching staging information was found for the patient. 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 OB History T4 L4 SAB1 IAB0 Ectopic0 Multiple0 Live Births4 Comment: 4 vaginal deliveries Stick Welder History LMP: Hysterectomy Age at Menarche: Age at First : Age at Menopause: Stick Welder History Comments: Sexual Activity: Not Currently; Male; hysterectomy Contraception: Surgical FAMILY HISTORY: FAMILY HISTORY Problem Relation Age of Onset No Known Problems Mother Arthritis Father Heart Attack Father 65 Prostate Cancer Father No Known Problems Sister No Known Problems Maternal Grandmother No Known Problems Maternal Grandfather No Known Problems Paternal Grandmother No Known Problems Paternal Grandfather other (Pulmonary Embolus) Daughter No Known Problems Daughter No Known Problems Son No Known Problems Son The Patient is not of Ashkenazic Ancestry. History of Genetic Testing: No Patient denies any known personal or family history of Hemophilia, VonWillebrands Disease. Patient denies any known personal or family history of DVT, PE or coagulopathy. 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 Lives with . 2 children moved out of the home now. PAST MEDICAL HISTORY: PAST MEDICAL HISTORY Diagnosis Date Cystocele with prolapse s/p hysterectomy Diverticulitis 03/15/2021 Essential hypertension situational- trying to get off medication Mixed hyperlipidemia Diet Controlled - Vegan Multiple cysts of breast Spider veins of limb Uterine prolapse Vegan diet PAST SURGICAL HISTORY: PAST SURGICAL HISTORY Procedure Laterality Date COLONOSCOPY 05/2022 Dr. Chirinos, repeat in 10 years per patient COLONOSCOPY GEN ANES 2012 Dr. Chirinos-reportedly negative/normal. TOTAL ABD HYSTERECTOMY+BLAD REPR 11/02/2019 for tx of uterine and bladder prolapse. PROBLEM LIST:ACTIVE PROBLEM LIST Essential Hypertension Mixed Hyperlipidemia Cystocele With Prolapse Multiple Cysts of Breast Spider Veins of Limb Urinary Urgency Muscle Weakness Invasive Carcinoma of Breast (Hcc) ALLERGIES: ALLERGIES Allergen Reactions Seasonal Allergies Other: See Comments CURRENT MEDICATIONS: calcium carbonate/vitamin D2 (CALCIUM + VITAMIN D ORAL) Take by mouth. estradiol (ESTRACE) 0.01 % (0.1 mg/gram) vaginal cream INSTILL 0.5 GRAMS VAGINALLY TWICE PER WEEK FOR 90 DAYS lisinopril 2.5 mg tablet Take 1 tablet by mouth once daily. REVIEW OF SYSTEMS: Remain pertinent EXAMINATION: Remain pertinent BREAST IMAGING: Breast Imaging was reviewed with patient and radiology today. PATHOLOGY: Available pathology was reviewed with patient today. ASSESSMENT/PLAN: Ms. Killian is a 62 year old postmenopausal female who has a past medical history of Cystocele with prolapse, Diverticulitis (03/15/2021), Essential hypertension, Mixed hyperlipidemia, Multiple cysts of breast, Spider veins of limb, Uterine prolapse, and Vegan diet. She has a recently diagnosed with a Left non palpable breast cancer, localized with a BERNARD and clip. Dr Lion has seen Ms Killian and we agree to upfront surgery. Cancer Staging (Hyperlink to Activity) Invasive carcinoma of breast (HCC) Staging form: Breast, AJCC 8th Edition - Clinical stage from 01/06/2023: Stage IA (cT1c, cN0, cM0, G2, ER+, WY+, HER2-) - Signed by Kimberlee Lion MD on 01/06/2023 We reviewed her imaging, tumor pathology, and clinical stage in detail. Copies of her imaging reports and pathology reports were given. Educational materials were provided. We had an extensive discussion of the treatment options for breast cancer including surgical management of the breast and axilla, (franco)adjuvant chemotherapy, radiation, and anti-estrogen medication. We discussed that treatment would be of curative intent. We reviewed the risks, benefits, and recurrence rates for partial mastectomy versus mastectomy. The patient is aware that if she meets all the criteria of having clear margins that the survival and local recurrence rate for mastectomy and breast conservation are the same. The potential risk of local recurrence is 5-6% over 10 years after partial mastectomy with adjuvant therapy. She is aware that if her margins return positive on the partial mastectomy specimen that she would need to have either a re-excision for margins or a completion mastectomy. We discussed that she would need adjuvant radiation if she elected a partial mastectomy. We discussed reconstruction options if she elected for mastectomy. At this time, she expressed interest in total mastectomy. She dose not want reconstruction. We discussed the indications and risks of sentinel lymph node biopsy and possibility of axillary lymph node dissection. We discussed the technique for sentinel node biopsy. She was also counseled about the importance of healthy lifestyle habits, including exercise, a healthy diet, achieving and maintaining a healthy weight, avoiding smoking, and minimizing or eliminating alcohol intake. She understands with any breast surgery that there is a risk of bleeding, hematoma, infection, nipple necrosis or loss, loss of sensation to the nipple, lymphedema, upper extremity paresthesia, or need for possible additional surgery. She acknowledges these risks and agrees to proceed. She was given the opportunity to ask questions. BREAST IMAGING ORDERED: no. BIOPSY ORDERED TODAY: no INTERDISCIPLINARY CARE AND FOLLOW UP: SURGICAL ONCOLOGY: Nona Phillips MD Tentative surgical plan: LEFT total mastectomy and LEFT axillary sentinel node biopsy Consents were signed in clinic. MEDICAL ONCOLOGY: Ms. Killian was seen by Dr. Lion today who will see her with final pathology. RADIATION ONCOLOGY: Ms. Killian was seen by Dr. Kierra German earlier and will see her after surgery. GENETICS: Ms. Killian declined our referral Ms. Killian will return to our office post-op. She has our names and numbers to contact us if she has any questions or concerns. Future Appointments Date Time Provider Department Center 01/06/2023 2:30 PM Kierra German MD [facility] 01/06/2023 3:15 PM Nona Phillips MD [facility] 03/27/2023 3:00 PM Skyler Mirza DO [facility] 05/21/2023 2:00 PM Nicole Rodriguez DO [facility] Nona Phillips [place] [address] Appointment cc: SELF Helder Egan MD I spent a total of 40 minutes on the date of the service which included preparing to see the patient, [id number] patient care, completing clinical documentation, obtaining and/or reviewing separately obtained history, performing a medically appropriate examination, and counseling and educating the patient/family/caregiver. TEACHING PHYSICIAN NOTE OF PERSONAL INVOLVEMENT IN CARE: I have personally seen and examined the patient and performed the medical decision-making components. I have reviewed the medical student documentation and verified the findings in the note as written as edited as appropriate. Signature: Nona Phillips Date: 01/06/2023 Time: 1:06 PM documented in this encounter [facility] 01-06-2023 History of Present illness Narrative AMBULATORY PATIENT EDUCATION NOTE TOPIC: SURVIVAL SKILLS: Complication Prevention Diet Disease Education Fall Risk Fatigue Management Pain Management Safety Precautions Symptom Management Wound Care READINESS TO LEARN COGNITIVE ABILITY: Alert and oriented MOTIVATION TO LEARN: Interested FAMILY SUPPORT: High - Very involved in pt care INSTRUCTION PROVIDED TO: Patient and Daughter PATIENT LEARNS BEST BY: Individual Instruction Written Instruction - Hand-outs Verbal Instruction Demonstration FACTORS AFFECTING LEARNING: None PHYSICAL LIMITATIONS AFFECTING LEARNING: None LEARNING RESPONSE DIAGNOSIS: LEFT Invasive Ductal Carcinoma/ LEFT mastectomy LEFT SNLBX METHOD OF INSTRUCTION: Individual instruction Written instruction - handouts Verbal instruction Demonstration-Hands on Learning PATIENT / FAMILY RESPONSE: Verbalizes understanding of: DRAIN CARE- Correct procedure to perform drain care INFECTION MANAGEMENT-Signs and symptoms of an infection and importance of contacting the physician PAIN MANAGEMENT-Effective strategies to manage pain in addition to pain medication PHYSICAL RESTRICTIONS-Physical restrictions and recommendations after discharge from the hospital POST-OPERATIVE INSTRUCTIONS-Correct actions to take to reduce postoperative complications PRE-OPERATIVE INSTRUCTIONS-Correct action to take to follow pre-operative instructions PATIENT SAFETY PRINCIPLES SYMPTOM MANAGEMENT-Correct actions to take to manage symptoms associated with his/her disease/illness WORSENING CONDITION-Signs and symptoms of a worsening condition that warrant a call to the physician WOUND CARE-Correct procedure to perform wound care FOLLOW-UP PLAN: Complete - No need for follow-up SUPPLEMENTAL MATERIAL: Your Surgical Guide REFERRAL (RECOMMENDATION): None Hibiclens 4 ounce bottle given to patient with instruction. Electronically Signed By: Cecilia Martinez RN In Department: BREAST CENTER Time spent on patient education: 30 minutes. documented in this encounter [facility] 01-06-2023 History of Present illness Narrative Radiation Oncology - New Patient/Consult Note PATIENT NAME: Fang Killian PATIENT REQUESTING PROVIDER: Alan DIAGNOSIS: 62 year old female with infiltrating ductal carcinoma of the Left breast, clinical stage T1N0, ER-positive, WY-positive, and Her2/marco a equivocal, s/p biopsy. Cancer Staging Invasive carcinoma of breast (HCC) Staging form: Breast, AJCC 8th Edition - Clinical: cT1c, cN0, cM0 - Signed by Nona Phillips MD on 12/25/2022 HPI: 62 year old female who presents with above diagnosis, for an opinion regarding the role of radiation therapy in the management of the patient's disease. Final recommendations will be communicated back to the requesting physician by way of the shared medical record, or letter to requesting physician via US mail. The patient reports a lump was detected. on screening mammogram she was found to have distortion located in the Left breast. Mammogram/ultrasound 11/12/2022 demonstrated: IMPRESSION: SUSPICIOUS FINDING - BIOPSY SHOULD BE CONSIDERED The 1.1 cm x 0.9 cm x 1 cm oval mass in the left breast is suspicious of malignancy. An ultrasound guided biopsy is recommended. Negative left axillary ultrasound. 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 Prior radiation therapy or collagen vascular disease: No Any implanted or external electric devices? No status: Patient states there is no possibility she is at this time. Educated on risks of during treatment. ALLERGIES Allergen Reactions Seasonal Allergies Other: See Comments PAST MEDICAL HISTORY Diagnosis Date Cystocele with prolapse s/p hysterectomy Diverticulitis 03/15/2021 Essential hypertension situational- trying to get off medication Mixed hyperlipidemia Multiple cysts of breast Spider veins of limb Uterine prolapse PAST SURGICAL HISTORY Procedure Laterality Date COLONOSCOPY 05/2022 Dr. Chirinos, repeat in 10 years per patient COLONOSCOPY GEN ANES 2012 Dr. Chirinos-reportedly negative/normal. TOTAL ABD HYSTERECTOMY+BLAD REPR 11/02/2019 FAMILY HISTORY Problem Relation Age of Onset No Known Problems Mother Arthritis Father Heart Attack Father 65 Prostate Cancer Father No Known Problems Sister No Known Problems Maternal Grandmother No Known Problems Maternal Grandfather No Known Problems Paternal Grandmother No Known Problems Paternal Grandfather No Known Problems Son No Known Problems Son No Known Problems Daughter No Known Problems Daughter MEN'S LEATHER DRESS BELT MAKER HISTORY: OB History T4 L4 SAB1 IAB0 Ectopic0 Multiple0 Live Births4 Comment: 4 vaginal deliveries Social History Tobacco Use Smoking status: Never Smokeless tobacco: Never Vaping Use Vaping Use: Never used Substance Use Topics Alcohol use: Yes Comment: rare Drug use: Never Occupation: currently working; works for [employer] Residence: [place], [place]; lives with and son COMPLETE REVIEW OF SYSTEMS: As noted in HPI PHYSICAL EXAM: VS: There were no vitals taken for this visit. KPS: 80 General Appearance: Alert and oriented. Neck: Normal ROM. Chest: No respiratory distress. Musculoskeletal: Normal ROM in extremities. Neuro: No focal deficits observed. Skin: No rashes noted Lymphatics: No palpable lymphadenopathy. Breast: Deferred Hematologic: No signs of active bleeding. ASSESSMENT AND PLAN: I discussed mastectomy and breast conservation. I discussed indications for RT following each.The logistics of radiation were discussed including acute, subacute, and chronic toxicities. The risks, benefits, alternatives, consent and personnel of radiation therapy were fully discussed with the patient. Signed by: Kierra German MD Medical Decision Making: Problems: High: Illness/injury w/ threat to life/body function Data: Unique test result(s) reviewed: 3+ Independent interpretation of test from other physician/QHCP Risk: Moderate: Moderate risk from testing/treatment Medical Decision Making Level: 5 - High cc: Helder Egan [address] [place] [id number] Nona Phillips [address] [place] [id number] documented in this encounter [facility] 01-06-2023 Nurse Note Reviewed and confirmed with patient that there were no changes in the the nursing assessment and vitals that were completed on 01/06/2023 during previous provider appointment. Kristin Joe MA documented in this encounter [facility] 01-06-2023 Nurse Note Reviewed and confirmed with patient that there were no changes in the the nursing assessment and vitals that were completed on 01/06/2023 during previous provider appointment. Kristin Joe MA documented in this encounter [facility] 01-06-2023 History of Present illness Narrative Images from the original note were not included. BREAST MEDICAL ONCOLOGY VISIT NOTE HISTORY AND PHYSICAL EXAMINATION PATIENT NAME: Fang Killian AGE: [age] year old CHIEF COMPLAINT: Breast Cancer as described below: PRIMARY CANCER: left IDC ER 91-100%/ WY 61-70%/ HER2 (2+) by IHC, NEG by FISH Grade 2 Prognostic Stage IA [T1c(1.2cm by biopsy core length ) N0 M0 ] breast cancer. Cancer Staging Invasive carcinoma of breast (HCC) Staging form: Breast, AJCC 8th Edition - Clinical stage from 01/06/2023: Stage IA (cT1c, cN0, cM0, G2, ER+, WY+, HER2-) - Signed by Kimberlee Lion MD on 01/06/2023 CURRENT TREATMENT: None yet [No matching plan found] GENETICS: Will discuss Menopausal status at the time of cancer diagnosis: POST No LMP recorded. Patient has had a hysterectomy. ONCOLOGIC HISTORY: 11/12/22: Screening Mammogram/US reported abnormality in L breast. There is a 1.1 cm x 0.9 cm x 1 cm oval mass with an indistinct margin in the left breast at 12 o'clock anterior depth. Directed ultrasound of the left axilla was negative. There is some ductal dilation near the mass possibly due to obstruction by the mass. 12/20/22: Biopsy reported a 12mm core of LEFT IDC ER 91-100%/ WY 61-70%/ HER2 (2+) by IHC, NEG by FISH Grade 2. INTERVAL HISTORY: Here to find out the plan. Review of Systems: Reviewed and otherwise negative PAST MEDICAL HISTORY Diagnosis Date Cystocele with prolapse s/p hysterectomy Diverticulitis 03/15/2021 Essential hypertension situational- trying to get off medication Mixed hyperlipidemia Diet Controlled - Vegan Multiple cysts of breast Spider veins of limb Uterine prolapse Vegan diet PAST SURGICAL HISTORY Procedure Laterality Date COLONOSCOPY 05/2022 Dr. Chirinos, repeat in 10 years per patient COLONOSCOPY GEN ANES 2013 Dr. Chirinos-reportedly negative/normal. TOTAL ABD HYSTERECTOMY+BLAD REPR 11/02/2019 for tx of uterine and bladder prolapse. Family History Problem Relation Age of Onset No Known Problems Mother Arthritis Father Heart Attack Father 65 Prostate Cancer Father No Known Problems Sister No Known Problems Maternal Grandmother No Known Problems Maternal Grandfather No Known Problems Paternal Grandmother No Known Problems Paternal Grandfather other (Pulmonary Embolus) Daughter No Known Problems Daughter No Known Problems Son No Known Problems Son Social History Tobacco Use Smoking status: Never Smokeless tobacco: Never Vaping Use Vaping Use: Never used Substance Use Topics Alcohol use: Yes Comment: rare Drug use: Never Current Outpatient Medications Medication Sig Dispense Refill calcium carbonate/vitamin D2 (CALCIUM + VITAMIN D ORAL) Take by mouth. estradiol (ESTRACE) 0.01 % (0.1 mg/gram) vaginal cream INSTILL 0.5 GRAMS VAGINALLY TWICE PER WEEK FOR 90 DAYS 42.5 g 1 lisinopril 2.5 mg tablet Take 1 tablet by mouth once daily. 30 tablet 2 No current facility-administered medications for this visit. ALLERGIES: Seasonal Allergies OBJECTIVE BP 135/92 Pulse 63 Temp 36.4 C (97.5 F) (Oral) Resp 20 Ht 168 cm (5' 6.14) Wt 57 kg (125 lb 9.6 oz) SpO2 100% BMI 20.19 kg/m General: well-appearing, in no acute distress Skin: Skin color, texture, turgor normal, no suspicious rashes or lesions Lymph Node Exam: NO PALPABLE LAD Eyes: Anicteric sclera. Extraocular movements are intact Lungs: Lungs clear to auscultation. No wheezing, rhonchi, rales Heart: RRR without murmur, gallop, rubs noted Abdomen: Abdomen soft, non-tender. Bowel sounds normal. No masses, organomegaly Extremities: No joint swelling, deformity, clubbing, or tenderness in the upper or lower extremities Neuro: generally intact Left breast: BIOPSY BRUISING NOTED, LIKELY HEMATOMA PALPATED. Nipple, areola, skin normal on appearance. Right breast: without any palpable masses, scars, nodularity, tenderness, or skin retraction. Nipple, areola, skin normal on appearance. LABS: Will obtain PATHOLOGY: As above IMAGING: As per above ASSESSMENT: This is a 62 year old female with a new diagnosis of stage IA HR+ HER2- Breast cancer. Cancer Staging Invasive carcinoma of breast (HCC) Staging form: Breast, AJCC 8th Edition - Clinical stage from 01/06/2023: Stage IA (cT1c, cN0, cM0, G2, ER+, WY+, HER2-) - Signed by Kimberlee Lion MD on 01/06/2023 PLAN Staging: Complete. Local Treatment: Patient is established with Dr German (radiation oncology) and Dr Phillips (breast surgery). Chemotherapy: Will send oncotype to determine the potential benefit of chemotherapy. Handout given to patient. Endocrine Therapy: She has a significant family history (DTR) with pulmonary embolus relating to OCPs at age 26. Has a personal history of near-osteopenia. Discussed Ding and Arimidex and chemocare given on both. She is deciding which she wants to do. Will get DEXA to help determine. DTR could benefit from a discussion with a director cost to see if there are other causes for early blood clot. Chemocare on Zometa, and bone health information about Calcium and Vit D given to the patient. I would consider low dose DING for sexual side effects, but would probably just avoid if clots is of considerable concern. Genetics: Declined offer for referral. Has NO FDR with cancers. I think this is just fine. Other: Schedule DEXA w/in the month. Labs ordered. Referral for sexual health sent for vaginal dryness on topical estrogens. I recommended OTC topicals in the meantime. Would prefer to avoid. Return to clinic after surgery to discuss final pathology and adjuvant therapy. Appointments for Next 60 Days Date Time Provider Location Dept Phone 01/06/2023 8:00 AM KIMBERLEE LION [facility] [phone] 01/06/2023 2:30 PM KIERRA GERMAN [place] [facility] [phone] 01/06/2023 3:15 PM NONA PHILLIPS [facility] [phone] Signed, Kimberlee Lion MD Associate Staff [facility] 01/06/2023 CC: Nona Phillips [address] [place] [id number] I spent a total of 60 minutes on the date of the service which included preparing to see the patient, [id number] patient care, completing clinical documentation, obtaining and/or reviewing separately obtained history, performing a medically appropriate examination, counseling and educating the patient/family/caregiver, ordering medications, tests, or procedures, and communicating results to the patient/family/caregiver. documented in this encounter [facility] 01-06-2023 Nurse Note Additional intake questions: Has the patient had fever, nausea, vomiting, diarrhea, constipation, fatigue for > 1 week? No Does the patient have a decreased appetite? No Does patient want to see a Pigment Pusher? No (yes to any of above refer patient to schedulers for dietitian appointment) ) Does patient have any new or increased numbness or tingling of extremities? No Is patient interested in fertility information? No Does patient need any prescription refills? No Does patient have an advanced directive in place? No, Patient referred to Resource Center documented in this encounter [facility] 01-06-2023 Instructions Kimberlee Lion MD - 01/06/2023 6:58 AM EDT Oni, It was nice to meet you today. Cancer Staging Invasive carcinoma of breast (HCC) Staging form: Breast, AJCC 8th Edition - Clinical stage from 01/06/2023: Stage IA (cT1c, cN0, cM0, G2, ER+, WY+, HER2-) - Signed by Kimberlee Lion MD on 01/06/2023 Here is the plan: Schedule DEXA (bone density test) with the scheduling team. Instructions below. Schedule Sexual health visit. Stop at lab sometime this week I will see you after surgery Thank you. Dr Kimberlee Lion and Team BONE MINERAL DENSITY PATIENT INSTRUCTIONS ======= Bone mineral density testing measures the amount of calcium in certain parts of your bones. This information determines how strong your bones are. The test is used to detect osteoporosis, a disease in which the bone's mineral content and density are low, increasing a person's risk of fractures. The lumbar spine (lower back) and the hip are the skeletal sites usually examined. For the test, remember that: 1. You cannot take this test if you are . 2. Eat a normal diet on the day of the test. 3. Take your medications as you normally would. 4. DO NOT take calcium supplements (such as Tums) for 24 hours before the test. 5. On the day of the test, leave valuables (jewelry or credit cards) at home. 6. The test should be performed prior to oral, rectal or IV contrast studies, or at least 7 days after any of these studies. For the test, you may be asked to wear a hospital gown. You will lie on your back, on a padded table, in a comfortable position. Generally, you can resume your usual activities immediately. documented in this encounter [facility] 01-03-2023 Note HNO ID: [id number] Author: Galdino Guo RT(Bethany) Service: Radiology Author Type: Rectangular Tank Cooper Type: Progress Notes Filed: 01/03/2023 11:21 AM Note Text: Radiology Service Progress Note PATIENT NAME: Fang Killian DATE OF SERVICE: January 03, 2023 TIME: 11:21 AM PATIENT IDENTITY VERIFICATION COMPLETED USING TWO (2) IDENTIFIERS: Name and Date of confirmed by patient verbally. FALL SCREENING: Has the patient had 2 falls in the last year or 1 fall with injury or currently using an Ambulatory Assistive Device (Walker, Cane, Wheelchair, Crutches, etc.)? No PATIENT GENDER DATA: Female. status: : No status: NO. PATIENT RELEVANT IMPLANT DATA REVIEWED: Yes RADIOLOGY DEPARTMENT: MR; Exam(s) Completed: Chest: Breast PERIPHERAL IV DATA: Site assessment: Clean,Dry and Intact, Site disposition Discontinued SIGNED BY: RT Long(Bethany) January 03, 2023 11:21 AM [facility] 01-03-2023 Note HNO ID: [id number] Author: Bruna Anguiano RN Service: Radiology Author Type: Registered Nurse Type: Progress Notes Filed: 01/03/2023 10:28 AM Note Text: Radiology Service Progress Note DATE OF SERVICE: January 03, 2023 TIME: 10:22 AM PATIENT WEIGHT: 125 LBS PATIENT IDENTITY VERIFICATION COMPLETED USING TWO (2) STANDARD IDENTIFIERS: Name and Date of confirmed by patient verbally and Name and Date of confirmed by identification band. FALL SCREENING: Has the patient had 2 falls in the last year or 1 fall with injury or currently using an Ambulatory Assistive Device (Walker, Cane, Wheelchair, Crutches, etc.)? No PATIENT GENDER DATA: Female. status: : No status: NO. ALLERGIES: Reviewed and unchanged CONTRAST ALLERGY: No EXAM: MRI - CONTRAST TYPE: GROUP II IV SITE: Ambulatory: A peripheral IV was started in the Left antecubital site with a Angio cath: 20 gauge. and A Saline lock was inserted per protocol, brisk blood return, flushed well with 10cc saline IV SITE APPEARANCE: Clean,Dry and Intact SIGNATURE: Bruna Anguiano RN PATIENT NAME: Fang Killian DATE: January 03, 2023 TIME: 10:22 AM [facility] 01-03-2023 History of Present illness Narrative Radiology Service Progress Note DATE OF SERVICE: January 03, 2023 TIME: 10:22 AM PATIENT WEIGHT: 125 LBS PATIENT IDENTITY VERIFICATION COMPLETED USING TWO (2) STANDARD IDENTIFIERS: Name and Date of confirmed by patient verbally and Name and Date of confirmed by identification band. FALL SCREENING: Has the patient had 2 falls in the last year or 1 fall with injury or currently using an Ambulatory Assistive Device (Walker, Cane, Wheelchair, Crutches, etc.)? No PATIENT GENDER DATA: Female. status: : No status: NO. ALLERGIES: Reviewed and unchanged CONTRAST ALLERGY: No EXAM: MRI - CONTRAST TYPE: GROUP II IV SITE: Ambulatory: A peripheral IV was started in the Left antecubital site with a Angio cath: 20 gauge. and A Saline lock was inserted per protocol, brisk blood return, flushed well with 10cc saline IV SITE APPEARANCE: Clean,Dry and Intact SIGNATURE: Bruna Anguiano RN PATIENT NAME: Fang Killian DATE: January 03, 2023 TIME: 10:22 AM Radiology Service Progress Note PATIENT NAME: Fang Killian DATE OF SERVICE: January 03, 2023 TIME: 11:21 AM PATIENT IDENTITY VERIFICATION COMPLETED USING TWO (2) IDENTIFIERS: Name and Date of confirmed by patient verbally. FALL SCREENING: Has the patient had 2 falls in the last year or 1 fall with injury or currently using an Ambulatory Assistive Device (Walker, Cane, Wheelchair, Crutches, etc.)? No PATIENT GENDER DATA: Female. status: : No status: NO. 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 Estrogen Receptor (ER) Positive 91-100 % Stain intensity: strong Internal controls: present and stained as expected External controls: appropriately stained Progesterone Receptor ([place]) Positive 61-70 % Stain intensity: moderate to strong, with some cells showing weak staining Internal controls: present and stained as expected External controls: appropriately stained HER2 (ERBB2) IMMUNOHISTOCHEMISTRY ASSAY Interpretation: EQUIVOCAL for HER2 (ERBB2) Expression Score: 2+ FISH PENDING Per Dr Maria documentation on mammogram report Due to the lobular component of the carcinoma and dense breast tissue, MRI is suggested Fang lives in [place], would like to get breast MRI completed then see Dr Phillips for surgery planning Breast MRI scheduled at [place] for Dez Oct 13, this was first available Appt with Dr Phillips FridayJan 06, to review path, MRI and discuss surgery Will update Dr Phillips documented in this encounter [facility] 12-20-2022 Miscellaneous Notes AMBULATORY PATIENT EDUCATION RADIOLOGY TOPIC: Pre- Procedure Teaching:Logistics / Protocols / Complication Prevention Post- Procedure Teaching: Symptom Management / Wound Care READINESS TO LEARN COGNITIVE ABILITY: Alert and oriented MOTIVATION TO LEARN: Interested FAMILY SUPPORT: Unable to assess - Family not present INSTRUCTION PROVIDED TO: Patient PATIENT LEARNS BEST BY: Individual Instruction Written Instruction - Hand-outs Verbal Instruction FACTORS AFFECTING LEARNING: None PHYSICAL LIMITATIONS AFFECTING LEARNING: None LEARNING RESPONSE Radiology Procedures Ultrasound Guided Breast Biopsy METHOD OF INSTRUCTION: Individual instruction Written instruction - handouts Verbal instruction PATIENT / FAMILY RESPONSE: Performs skill independently: Wound care FOLLOW-UP PLAN: Follow up phone call. SUPPLEMENTAL MATERIAL: Homegoing instructions REFERRAL (RECOMMENDATION): None documented in this encounter [facility] 11-20-2022 History of Present illness Narrative FOLLOW UP VISIT NAME: Fang [facility] NO.: [id number] DATE OF SERVICE: 11/20/2022 : 1960 REFERRING PHYSICIAN: Helder Egan MD Fang is status post US guided needle core left breast biopsy and subsequently had a hematoma VITALS: Blood pressure 122/84, pulse 92, temperature 36.3 C (97.4 F), SpO2 96 %. On examination, the hematoma is stable in size, there is ecchymoses. Assessment IMPRESSION: s/p needle core biopsy with hematoma PLAN: Patient to continue ice to area and supportive bra. Patient to follow up with me next week for evaluation and pathology results. Diagnoses: (Z98.890) Status post breast biopsy (primary encounter diagnosis) I have confirmed and edited as necessary, the PFSH and ROS obtained by others. . Ning Salinas MD documented in this encounter [facility] 11-19-2022 Miscellaneous Notes Patient concerned about hematoma s/p breast biopsy. I told her that I could see her tomorrow at 2:30. She is OK with this. documented in this encounter [facility] 11-19-2022 History of Present illness Narrative Patient is requesting to put procedure on hold and to be reached out to by EOY due to other health issues at the moment. DAPHNIE 11/19 UNIVERSAL PROTOCOL / SAFETY CHECKLIST Procedure to be Performed: US guided left needle core breast biopsy. Sign In: A Moment of CARE was completed. Personnel directly involved with the procedure wore the appropriate PPE (Personal Protective Equipment). Special equipment: Mammotome Patient/Surrogate Stated/Verified: PATIENT VERIFIED(optional for EMERGENT procedures): Patient name, Date of , Relevant allergies, and The intended procedure Time Out Communication: Intended patient and procedure match the source documents. Consent documented and matches the intended procedure. Relevant labs, photos, and/or imaging studies have been reviewed. Correct side/site marked and visible. Medications required for procedure verified. No fire risk assessment and interventions applicable. Implant(s) inserted: Correct implant(s) confirmed including size and side. and Expiration date(s) reviewed. Sign Out: SIGN OUT (optional for EMERGENT procedures): All specimen containers correctly labeled. No instruments, equipment or retained foreign bodies applicable. Post-procedure follow-up management communicated and Plan of Care Visit completed when applicable. Laxmi Farris, RN HISTORY AND PHYSICAL Fang Killian 1960 REFERRING PHYSICIAN: Summer Parada APRN.HEAD OF ACADEMIC TECHNOLOGY CHIEF COMPLAINT: Consult (Breast mass) and Procedure (US guided left needle core breast biopsy.) HPI: The patient is a 62 year old female presents with left breast mass and abnormal left breast radiographs. In the [facility] system, it is noted that she requires a screening colonoscopy, however, this is in error, as patient just had a colonoscopy in May of this year by Dr. Chirinos. She presents with palpable breast mass that she has noted for two weeks. She denies trauma or infections to this area. She denies nipple discharge. She denies previous breast biopsies. She does note pain in this area, a type of pulling pain. She denies any breast or ovarian cancer in her family. Her gynecological history is as follows: menarche onset at age 12, , first at age 31, breast feeding, 3 years each infant, BCP use initially at age 21 for 10 y, menopause in late 40s, denies HRT use, using estrace cream PAST MEDICAL HISTORY Diagnosis Date Cystocele with prolapse s/p hysterectomy Diverticulitis 03/15/2021 Essential hypertension situational- trying to get off medication Mixed hyperlipidemia Multiple cysts of breast Spider veins of limb Uterine prolapse PAST SURGICAL HISTORY Procedure Laterality Date COLONOSCOPY GEN ANES 2012 Dr. Chirinos-reportedly negative/normal. TOTAL ABD HYSTERECTOMY+BLAD REPR 11/02/2019 Current Outpatient Medications Medication Sig estradiol (ESTRACE) 0.01 % (0.1 mg/gram) vaginal cream INSTILL 0.5 GRAMS VAGINALLY TWICE PER WEEK FOR 90 DAYS lisinopril 2.5 mg tablet Take 1 tablet by mouth once daily. calcium carbonate/vitamin D2 (CALCIUM + VITAMIN D ORAL) Take by mouth. No current facility-administered medications for this visit. ALLERGIES: Seasonal Allergies PERSONAL HISTORY: Social History Tobacco Use Smoking status: Never Smokeless tobacco: Never Vaping Use Vaping Use: Never used Substance Use Topics Alcohol use: Yes Comment: rare Drug use: Never FAMILY HISTORY Problem Relation Age of Onset No Known Problems Mother Arthritis Father Heart Attack Father 65 No Known Problems Sister No Known Problems Maternal Grandmother No Known Problems Maternal Grandfather No Known Problems Paternal Grandmother No Known Problems Paternal Grandfather No Known Problems Son No Known Problems Son No Known Problems Daughter No Known Problems Daughter The review of systems data was entered by the nurse and reviewed by me Nursing Notes: Aurelia Mir RN 11/18/2022 11:30 AM Signed REVIEW OF SYSTEMS: General: The patient denies fatigue, denies weight loss, denies weight gain, denies feeling hot, and denies feelings of cold. Eyes: The patient denies glaucoma, denies eye injury/surgery, wears glasses or contacts. Ear/Nose/Throat: The patient NOTES allergies, denies hayfever, denies ear infections, and denies bloody noses. Cardiovascular: The patient denies chest pain, denies heart disease, NOTES high blood pressure,denies cardiac stent, denies prior heart attack, denies irregular heart beat, denies high cholesterol, denies poor circulation, denies heart failure, other cardiac issues, denies claudication, denies cold feet, denies peripheral arterial stent. Respiratory: The patient denies tuberculosis, denies pneumonia, denies frequent cough, denies pulmonary embolism, denies shortness of breath, and denies coughing up blood. Gastrointestinal: The patient denies difficulty swallowing, denies acid reflux, denies ulcers, denies vomiting, denies jaundice/hepatitis, denies gallbladder problems, denies black or tarry stools, denies hemorrhoids, denies bleeding from rectum, NOTES diverticulitis, denies constipation, denies diarrhea, denies loss of stool control, and denies hernias. Kidney/Bladder: The patient denies kidney stones, denies urine infections, and denies bloody urine. Skin: The patient denies a history of skin cancer, denies bleeding/changing moles, and denies a history of skin rash. Neurologic: The patient denies a history of epilepsy/convulsions, denies headaches, denies head/spinal injuries, and denies stroke/TIA. Psychiatric: The patient denies psychiatric medications, denies depression, and denies voices, denies substance abuse. Endocrine: The patient denies thyroid disorders, denies diabetes, and denies hormonal problems. Hematologic: The patient denies a history of bruising, denies bleeding, and denies anemia, denies blood clots. Infections: The patient denies a history of measles and mumps, denies rheumatic fever, and denies sexually transmitted diseases. Musculoskeletal: The patient denies back pain/injury, denies back problems, denies sciatica, denies knee/foot trouble, denies arthritis, or denies gout. When was patient's last Mammogram screening? 11/12/2022 Last Colonoscopy: may 2022 Aurelia Mir RN PHYSICAL EXAMINATION: General: The patient is 62 year old female, well nourished, well hydrated in no acute distress. The patient is oriented to time, place, and person. VITALS: Blood pressure 124/84, pulse 93, temperature 36.4 C (97.5 F), height 167.6 cm (5' 6), weight 55.7 kg (122 lb 12.8 oz), SpO2 98 %. Body mass index is 19.82 kg/m . Head - Normocephalic. EOM intact with sclera clear and no icterus noted. Mouth with mucus membranes moist. Neck - supple with no jugular venous distention noted. Trachea is midline. No thyroid enlargement or thyroid nodules detected. No masses noted. Chest/breast - no asymmetry of breasts noted, no nipple discharge and both nipples everted, left breast mass at superior aspect of areolar border with overlying skin dimpling 1.5 cm Lungs - clear to auscultation. Normal breath sounds. No rales/rhonchi/wheezing noted. No labored breathing noted, such as retractions. No cough heard. Heart - normal S1 and S2 auscultated. No rubs/clicks/murmurs noted. Regular rate. Abdomen - soft and benign. . Extremities - no calf tenderness noted. No pitting edema noted. Skin - normal skin integrity. Lymph - no cervical adenopathy detected, no supraclavicular adenopathy detected, no axillary adenopathy detected Neurological - gait normal, no focal deficits noted Psych - calm and appropriate Assessment IMPRESSION: left breast mass, abnormal left breast radiographs PLAN: I have offered US guided left breast needle core biopsy. I have described the procedure to the patient, to be done in the office using local anesthesia. I have explained the risks/benefits of the procedure. I have discussed the risks with the patient, including but not limited to: infection, bleeding, injury to any blood vessels/nerves, seroma/swelling, wound infections, cosmetic deformity, etc. - the patient understands Diagnoses: (R92.8) Abnormal ultrasound of breast (primary encounter diagnosis) (Z12.11) Screening for colon cancer I have confirmed and edited as necessary, the PFSH and ROS obtained by others. Consultation requested by Summer Parada for an opinion regarding patient's abnormal left breast radiographs and left breast mass. My final recommendations will be communicated back to the requesting physician by way of shared Medical record or letter to requesting physician via US mail. PROCEDURE NOTE: Ultrasound guided breast needle core biopsy with vacuum assistance Indications - BIRADS 4 breast lesion Description of procedure - After informed consent was obtained, patient was brought to the Procedure Room. Appropriate time out protocol was followed. The patient was placed in the supine position. The ultrasound machine was used for identification of the lesion and facilitation of the biopsy in real time imaging. The lesion was identified in the left breast. It was at the 12 o'clock position, in the retroareolar position, about mid depth. The lesion was measured at about 1 cm in size. The transducer was held in the transverse position. The skin was cleansed with a surgical skin preparation. The skin and subcutaneous tissues were infiltrated with 1% xylocaine. A total of 8 ml was used. A small skin jimena was made lateral to the lesion with an 11 blade scalpel. The Mammotome Elite device was then positioned into the patient's breast at the lesion site. Ultrasound imaging pictures were captured. Using the vacuum suctioning of the Mammotome device, several core samples of breast tissue were obtained. This was done, simultaneously visualizing with the ultrasound transducer. Once adequate sampling was determined to be done, the Mammotome device was removed and a marker clip was placed at the biopsy site, using ultrasound transducer guidance. Of note, there was bleeding noted after the procedure Hemostasis was achieved by pressure for a longer period of time. No evidence of active bleeding was noted after pressure applied for a period of time, though a palpable hematoma was noted, that was not expanding. Steristrips were placed to reapproximate the wound edges. Sterile dressing was applied over this. Patient tolerated procedure well. Complications - none EBL - minimal Return to Clinic: The patient was given wound care instructions by the clinic staff. The patient is instructed to follow-up with me next week to discuss pathology results and wound check. Medical Decision Making: Problems: Moderate: New problem with uncertain prognosis Data: Unique test result(s) reviewed: 1 Risk: Low: Low risk from testing/treatment Medical Decision Making Level: 3 - Low Ning Salinas MD documented in this encounter [facility] 11-18-2022 Instructions Laxmi Farris RN - 11/18/2022 12:05 PM EDT The following instructions are important for you related to your office visit today with the [facility]. Instructions After OFFICE BASED BREAST BIOPSY After the procedure, Steri-Strips and a dressing will be placed on your small incision. The dressing may be removed five days after the procedure. The dressing is waterproof and you may shower with it in place. The Steri-Strips should be left in place until they fall off, generally 10-14 days. You may shower with the steri-strips in place. If you have bleeding from the biopsy site, hold pressure with a clean gauze. If the bleeding continues, contact our office immediately. I recommend taking Advil or Tylenol for the discomfort. You should wear a comfortable but somewhat tight fitting bra.You will have significant bruising, an ice pack may help with the bruising. Apply it 20 minutes on and 20 minutes off, being sure to place something between your skin and the ice pack. Please make an appointment to return to our office in 7-10 days. If you note any additional difficulties, questions, or concerns, you should contact our office immediately @ [phone] and ask to be transferred to the General Surgery department. IF YOU HAVE INCREASED PAIN, THE AREA SWELLS MORE OR BECOMES BLUE OR PURPLE, PLEASE BE EVALUATED IN THE EMERGENCY ROOM RIGHT AWAY. documented in this encounter [facility] 11-18-2022 Nurse Note REVIEW OF SYSTEMS: General: The patient denies fatigue, denies weight loss, denies weight gain, denies feeling hot, and denies feelings of cold. Eyes: The patient denies glaucoma, denies eye injury/surgery, wears glasses or contacts. Ear/Nose/Throat: The patient NOTES allergies, denies hayfever, denies ear infections, and denies bloody noses. Cardiovascular: The patient denies chest pain, denies heart disease, NOTES high blood pressure,denies cardiac stent, denies prior heart attack, denies irregular heart beat, denies high cholesterol, denies poor circulation, denies heart failure, other cardiac issues, denies claudication, denies cold feet, denies peripheral arterial stent. Respiratory: The patient denies tuberculosis, denies pneumonia, denies frequent cough, denies pulmonary embolism, denies shortness of breath, and denies coughing up blood. Gastrointestinal: The patient denies difficulty swallowing, denies acid reflux, denies ulcers, denies vomiting, denies jaundice/hepatitis, denies gallbladder problems, denies black or tarry stools, denies hemorrhoids, denies bleeding from rectum, NOTES diverticulitis, denies constipation, denies diarrhea, denies loss of stool control, and denies hernias. Kidney/Bladder: The patient denies kidney stones, denies urine infections, and denies bloody urine. Skin: The patient denies a history of skin cancer, denies bleeding/changing moles, and denies a history of skin rash. Neurologic: The patient denies a history of epilepsy/convulsions, denies headaches, denies head/spinal injuries, and denies stroke/TIA. Psychiatric: The patient denies psychiatric medications, denies depression, and denies voices, denies substance abuse. Endocrine: The patient denies thyroid disorders, denies diabetes, and denies hormonal problems. Hematologic: The patient denies a history of bruising, denies bleeding, and denies anemia, denies blood clots. Infections: The patient denies a history of measles and mumps, denies rheumatic fever, and denies sexually transmitted diseases. Musculoskeletal: The patient denies back pain/injury, denies back problems, denies sciatica, denies knee/foot trouble, denies arthritis, or denies gout. When was patient's last Mammogram screening? 11/12/2022 Last Colonoscopy: may 2022 Aurelia Mir RN documented in this encounter [facility] 11-12-2022 History of Present illness Narrative Radiology Service Progress Note PATIENT NAME: Fang Killian DATE OF SERVICE: November 12, 2022 TIME: 3:26 PM PATIENT IDENTITY VERIFICATION COMPLETED USING TWO (2) IDENTIFIERS: Name and Date of confirmed by patient verbally. FALL SCREENING: Has the patient had 2 falls in the last year or 1 fall with injury or currently using an Ambulatory Assistive Device (Walker, Cane, Wheelchair, Crutches, etc.)? No PATIENT GENDER DATA: Female. status: : No status: NO. PATIENT RELEVANT IMPLANT DATA REVIEWED: Not Applicable RADIOLOGY DEPARTMENT: Ultrasound PERIPHERAL IV DATA: Not applicable SIGNED BY: Bhumika Brandon RDMS November 12, 2022 3:26 PM documented in this encounter [facility] 11-12-2022 History of Present illness Narrative Radiology Service Progress Note PATIENT NAME: Fang Killian DATE OF SERVICE: November 12, 2022 TIME: 2:22 PM PATIENT IDENTITY VERIFICATION COMPLETED USING TWO (2) IDENTIFIERS: Name and Date of confirmed by patient verbally. FALL SCREENING: Has the patient had 2 falls in the last year or 1 fall with injury or currently using an Ambulatory Assistive Device (Walker, Cane, Wheelchair, Crutches, etc.)? No PATIENT GENDER DATA: Female. status: : No status: NO. PATIENT RELEVANT IMPLANT DATA REVIEWED: Not Applicable RADIOLOGY DEPARTMENT: Mammography PERIPHERAL IV DATA: Not applicable SIGNED BY: Abdirashid Power November 12, 2022 2:22 PM documented in this encounter [facility] 11-08-2022 History of Present illness Narrative Radiology Service Progress Note PATIENT NAME: Fang Killian DATE OF SERVICE: November 08, 2022 TIME: 8:02 AM PATIENT IDENTITY VERIFICATION COMPLETED USING TWO (2) IDENTIFIERS: Name and Date of confirmed by patient verbally. FALL SCREENING: Has the patient had 2 falls in the last year or 1 fall with injury or currently using an Ambulatory Assistive Device (Walker, Cane, Wheelchair, Crutches, etc.)? No PATIENT GENDER DATA: Female. status: : No status: NO. PATIENT RELEVANT IMPLANT DATA REVIEWED: Not Applicable RADIOLOGY DEPARTMENT: Mammography PERIPHERAL IV DATA: Not applicable SIGNED BY: RT Aaron(R) November 08, 2022 8:02 AM documented in this encounter [facility] 11-06-2022 History of Present illness Narrative Artificial Cherry Maker offered: Patient declines. BREAST LUMP HISTORY: This is a 62 year old female Presents with breast mass left Mass has been present for 3 days Checked breast due to pulling sensation and puckering of left breast. She has noticed puckering to right breast in the past but not the left. Tenderness No Change in sizeNo Any history breast mass Yes, right breast cysts but none in left breast Caffeine use Yes 2 servings a day Last [id number] abnormal, right breast cysts. History of multiple breast cysts. 04/24/2022 - right breast cysts at 9 o'clock and 12 o'clock Any previous breast surgery No Any family history breast disease/ breast cancer No OB History T4 L4 SAB1 IAB0 Ectopic0 Multiple0 Live Births4 Comment: 4 vaginal deliveries PAST MEDICAL HISTORY Diagnosis Date Cystocele with prolapse s/p hysterectomy Diverticulitis 03/15/2021 Essential hypertension situational- trying to get off medication Mixed hyperlipidemia Multiple cysts of breast Spider veins of limb Uterine prolapse PAST SURGICAL HISTORY Procedure Laterality Date COLONOSCOPY GEN ANES 2013 Dr. Chirinos-reportedly negative/normal. TOTAL ABD HYSTERECTOMY+BLAD REPR 11/02/2019 FAMILY HISTORY Problem Relation Age of Onset No Known Problems Mother Arthritis Father Heart Attack Father 65 No Known Problems Sister No Known Problems Maternal Grandmother No Known Problems Maternal Grandfather No Known Problems Paternal Grandmother No Known Problems Paternal Grandfather No Known Problems Son No Known Problems Son No Known Problems Daughter No Known Problems Daughter SOCIAL HISTORY Social History Tobacco Use Smoking status: Never Smokeless tobacco: Never Vaping Use Vaping Use: Never used Substance Use Topics Alcohol use: Yes Comment: rare Drug use: Never PAST SURGICAL HISTORY Procedure Laterality Date COLONOSCOPY GEN ANES 2013 Dr. Chirinos-reportedly negative/normal. TOTAL ABD HYSTERECTOMY+BLAD REPR 11/02/2019 Current Outpatient Medications Medication Sig estradiol (ESTRACE) 0.01 % (0.1 mg/gram) vaginal cream INSTILL 0.5 GRAMS VAGINALLY TWICE PER WEEK FOR 90 DAYS lisinopril 2.5 mg tablet Take 1 tablet by mouth once daily. calcium carbonate/vitamin D2 (CALCIUM + VITAMIN D ORAL) Take by mouth. No current facility-administered medications for this visit. Allergies As of Date: 11/06/2022 Allergen Noted Reaction SEASONAL ALLERGIES 06/02/2020 Other: See Comments Fully Assessed 11/06/2022 EXAMINATION: There is no concerning cervical, supraclavicular, or axillary lymphadenopathy. Examined in sitting and supine positions. On the right are no dominant masses, skin changes or nipple discharge. On the left there is an approximately 3 cm mass from 11 o'clock to 2 o'clock with a superior 1.0 cm nodule in the 1 o'clock location with puckering in the supine position. There is no redness or nipple discharge. IMPRESSION: left breast mass. ASSESSMENT/PLAN: 1. Mass overlapping multiple quadrants of left breast - ICD9: 611.72, ICD10: N63.25 History of multiple cysts right breast, none in left. - BREAST LTD LEFT - [facility] Will notify of results. Follow- up as needed. Summer Parada APRN.DAVID Medical Decision Making: Problems: Low: Acute, uncomplicated illness or injury Data: Unique test(s) ordered: 2 Risk: Moderate: Moderate risk from testing/treatment Medical Decision Making Level: 3 - Low documented in this encounter [facility] 11-04-2022 Miscellaneous Notes Spoke with pt and she was given appointment for 11/06/22. Dayanara Pena LPN documented in this encounter [facility] 10-07-2022 Miscellaneous Notes Last office visit: 04/16/22 F/u scheduled: none Miya Driscoll Ma documented in this encounter [facility] 08-23-2022 History of Present illness Narrative Episode Visit Count: 4 Therapist That Will Accept/Oversee The Plan Of Care: Henny Caicedo Start of Care Date: 07/26/22 Onset Date: 03/24/17 Patient Identified by Name and Date of : Yes REHABILITATION AND SPORTS THERAPY PHYSICAL THERAPY TREATMENT NOTE ASSESSMENT: Fang Killian tolerated the session with no issues. She demonstrated improvements in POP symptoms and frequency of urinary urgency episodes. The patient will continue to benefit from ongoing skilled physical therapy to progress toward set goals. PLAN FOR NEXT VISIT: reassessment SUBJECTIVE: Patient Reason for Visit: Pt reports improvement in POP, has not noticed symptoms since last visit. Pain: Pain Pain Level: 0 Post Treatment Pain Post Treatment Pain Level: 0 OBJECTIVE MEASURES WITH LEVEL OF FUNCTION: Pelvic Floor Urgency: Sometimes Frequency of Urgency Episodes: 1x/day, usually first thing in the morning Daytime Frequency (hours): 2-3 TREATMENT: Therapeutic Exercise: 1: combo kegal, 1x10 2: supine TA bracing, 1x10 3: *supine TA bracing with alternating marches, 2x10 4: *quadruped TA bracing, 2x10 5: *standing hip abduction with TA and PF bracing, 2x10 each 6: sit to stand with PF bracing, 2x5 Skilled Intervention: Patient was educated in proper exercise technique and purpose for exercises. Reviewed and educated patient on additions/changes for home exercise program as above (*). Skilled judgment was provided in selection of appropriate interventions. Provided written instruction for home exercise program to facilitate proper performance and compliance. Billing Therapeutic Exercise Treatment Minutes: 40 Total Treatment Time Minutes (timed/untimed): 40 Henny Caicedo PT documented in this encounter [facility] 07-26-2022 History of Present illness Narrative Episode Visit Count: 1 Therapist That Will Accept/Oversee The Plan Of Care: Henny Caicedo Start of Care Date: 07/26/22 Onset Date: 03/24/17 Patient Identified by Name and Date of : Yes REHABILITATION AND SPORTS THERAPY PHYSICAL THERAPY EVALUATION PLAN OF CARE: Assessment: Fang Killian presents with chief complaint of pelvic organ prolapse that interferes with bladder function, squatting . She presents with impairments in decreased pelvic floor and core strength; impaired bladder function. PROMIS (Patient-Reported Outcomes Measurement Information System) scores were reviewed and physical function domain identified as a rehabilitation concern. Prognosis for therapy is Good due to: current objective clinical presentation . She will benefit from skilled therapy services to meet the goals established for this plan of care as noted below. Goals for Episode of Care: created on 07/26/22 through 09/24/22 Century in home exercise program. Patient will demonstrate increase in core strength to at least 3+/5 during manual muscle testing in order to improve function for prior functional tasks. Patient to increase strength of pelvic floor to Power: at least 3/5 in order to improve bladder control. Patient reports at least 75% less bladder urgency compared to IE. Patient reports at least 75% improvement in POP symptoms compared to IE. Patient Goals: improve bladder function, improve POP, return to PLOF Planned Interventions, Frequency, and Duration: Current Frequency: 1x/week Duration: 4 weeks (reassess at 4 weeks and progress as indicated) Total Number of Visits Planned: 4 Planned Treatment Interventions: Therapeutic exercise (54344), Manual therapy (69267), Self-alf management (26800), Patient/Family/Caregiver Education PLAN FOR NEXT VISIT: progress core and PF strengthening exercises as tolerated Patient demonstrates good understanding of plan of care and treatment. The above goals and plan of care were discussed and agreed upon by patient/family. SUBJECTIVE: Pt reports first noticing POP in 2017 and started getting increasingly uncomfortable at the beginning of 2019. Pt reports having a hysterectomy in October 2019 (non-[facility] facility), felt like she was not able to recover well from this. 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 Intake Information: Prescription present Previous Treatment: None Falls Interview: No positive findings with falls interview Aquatic Screen: No PAST MEDICAL HISTORY Diagnosis Date Cystocele with prolapse s/p hysterectomy Diverticulitis 03/15/2021 Essential hypertension situational- trying to get off medication Mixed hyperlipidemia Multiple cysts of breast Spider veins of limb Uterine prolapse PAST SURGICAL HISTORY Procedure Laterality Date COLONOSCOPY GEN ANES 2012 Dr. Chirinos-reportedly negative/normal. TOTAL ABD HYSTERECTOMY+BLAD REPR 11/02/2019 Pain: Pain Pain Level: 0 Post Treatment Pain Post Treatment Pain Level: 0 PROMIS Scales Higher is Better 07/24/2022 Phys Func - Score 40 (mild dysfunction) Phys Func - Percentile 16 % Self-Eff Symptom - Score 41 (Average) Self-Eff Symptom - Percentile 18 % T-scores: mean of general population = 50. 5 points is clinically meaningfully difference Percentiles provide an indication of how the patient's score ranks in relation to the general population. Higher percentile rankings indicate better function/quality of life. 50th percentile is the average of the general population and indicates half of respondents had a worse score. OBJECTIVE MEASURES WITH LEVEL OF FUNCTION: Pelvic Floor Pregnancies: 5 Births: 4 Vaginal Delivery: Standard Pain with penetration: Not sexually active Urinary/Bowel History : Urinary History, Bowel History Difficulty starting stream: No Incomplete emptying: No Stress Incontinence: No Urgency: Yes Frequency of Urgency Episodes: a couple times a day Frequency of Leaks Secondary to Urge: 0 Nocturia (times per night): 0 Daytime Frequency (hours): 2 Fluid Intake: Tea, Water (8 oz measurements) Water : 5-6 Tea : 2 Difficulty evacuating / Excessive Straining: No Incomplete emptying: No Bowel Movement Frequency: 1x/day Fecal incontinence: No Pelvic Floor Muscle Assessment Consent for pelvic assessment/testing and treatment: Patient was educated regarding pelvic floor physical therapy assessment/treatment which may include pelvic floor and girdle muscle assessment externally or internally (vaginal or rectal approach)., Patient verbalized consent for the above treatment approaches today. Patient understands they have control of the treatment and an opportunity to stop treatment at any time. Appearance: General Observations General Observations: Pelvic organ prolapse noted. Pelvic Floor Muscle Assessment: PERFECT, Muscle Dynamics Power: 1 Endurance: 5 Fast Reps: 10 Contracton Pressure: Weak squeeze, felt as flick at various points along finger surface, not all the way around Duration of Contraction: >3 seconds Recruitment of pelvic floor muscles: Coordinated Range of Motion: Normal Ability to Lengthen pelvic floor: Yes Pelvic Floor Manual Assessment Pelvic Floor Tenderness/Hyperactivity: Tested Vaginally in Tested Vaginally in : Supine/hooklying (No tightness/tenderness noted.) LE AROM R LE AROM: WFL L LE AROM: WFL LE Flexibility Flexibility: Hamstring Flexibility, Hip Adductor, Hip Internal Rotation Flexibility, Hip External Rotation Flexibility R Hamstring Flexibility: WNL L Hamstring Flexibility: WNL R Adductor Flexibility: WNL L Adductor Flexibility: WNL R Hip Internal Rotation Flexibility: WNL L Hip Internal Rotation Flexibility: WNL R Hip External Rotation Flexibility: WNL L Hip External Rotation Flexibility: WNL LE Strength Trunk Strength: Lower Abdominals: 3/5 R LE Strength: 5/5 L LE Strength: 5/5 Education: Education Learning Preferences: Demonstration, Explanation, Performance, Printed Materials Barriers: None Learning/educational needs: Home exercise program, Plan of Care Education Provided: Yes, see treatment interventions for education provided Education Provided To: Patient Education Mode/Type: Demonstration, Explanation/Discussion, Literature/Printed Materials, Performance Response to Education/Teach Back: States/Identifies, Return Demonstration TREATMENT: PT Treatment Interventions: Therapeutic Exercise, Self-Skilled Nursing Management Evaluation Therapeutic Exercise: 1: *quick kegals, 3x10 2: *isometric hip adduction, 2x10 Skilled Intervention: Patient was educated in proper exercise technique and purpose for exercises. Reviewed and educated patient on additions/changes for home exercise program as above (*). Skilled judgment was provided in selection of appropriate interventions. Provided written instruction for home exercise program to facilitate proper performance and compliance. Self-Skilled Nursing Management: 1: Reviewed pelvic floor anatomy and function with 3D pelvic model 2: Reviewed typical vs dysfunctional bladder health 3: Reviewed bladder irritants, importance of water intake 4: Reviewed urinary urgency suppression techniques 5: Reviewed POP, PT treatment options 6: Reviewed body's pressure management system, importance of breathing and bracing PF during functional tasks Skilled Intervention: Skilled judgment in the selection of proper modification for activity of daily living/home management based on clinical presentation, deficits, and needs. Provided written instruction for activities of daily living techniques to facilitate proper performance and compliance. Billing * Evaluation Low Complexity: 1 Unit Therapeutic Exercise Treatment Minutes: 5 Self-Care/Home Management Treatment Minutes: 19 Total Treatment Time Minutes (timed/untimed): 50 Henny Caicedo PT documented in this encounter [facility] 06-25-2022 Miscellaneous Notes Patient phones requesting refills as follows: Requested Prescriptions Pending Prescriptions Disp Refills estradiol (ESTRACE) 0.01 % (0.1 mg/gram) vaginal cream 42.5 g 1 Sig: INSTILL 0.5 GRAMS VAGINALLY TWICE PER WEEK FOR 90 DAYS lisinopril 2.5 mg tablet 30 tablet 2 Sig: Take 1 tablet by mouth once daily. RIANNA 04/13/22 NOV no upcoming appt noted Please review and advise. Ilsa Osman LPN documented in this encounter [facility] 05-14-[address] Moreira office telephoned. This has been taken care of. Patient will be seen in their office on 05/29/2022. Kristy Aleman LPN There was a General Surgery consult placed for colon cancer screening on 03/06/22. Pt was seen in ED on 04/01/22 due to GI symptoms. GI Referral was placed for Dr. Daugherty. Sharon Chau Ma I do not know why they received anything. Fid out what it is they actually received about patient. I have not seen her for some time. Morelia Echols APRN.DAVID I'm not seeing a reason they would have received anything for this patient. Office called, their VM states they are at lunch. Please try back later. Kristy Aleman LPN Dr. Teixeira office calling asking why they are received faxed on this patitent. Please call them to verify reason and if patient needs seen. documented in this encounter [facility] 04-29-2022 Miscellaneous Notes See update from pt. Sharon Chau Ma documented in this encounter [facility] 04-25-2022 History of Present illness Narrative Radiology Service Progress Note PATIENT NAME: Fang Killian DATE OF SERVICE: April 25, 2022 TIME: 2:16 PM PATIENT IDENTITY VERIFICATION COMPLETED USING TWO (2) IDENTIFIERS: Name and Date of confirmed by patient verbally. FALL SCREENING: Has the patient had 2 falls in the last year or 1 fall with injury or currently using an Ambulatory Assistive Device (Walker, Cane, Wheelchair, Crutches, etc.)? No PATIENT GENDER DATA: Female. status: : No status: NO. PATIENT RELEVANT IMPLANT DATA REVIEWED: Not Applicable RADIOLOGY DEPARTMENT: Ultrasound PERIPHERAL IV DATA: Not applicable SIGNED BY: Juany Sanderson RDMS [facility] April 25, 2022 2:16 PM documented in this encounter [facility] 04-24-2022 History of Present illness Narrative Radiology Service Progress Note PATIENT NAME: Fang Killian DATE OF SERVICE: April 24, 2022 TIME: 3:24 PM PATIENT IDENTITY VERIFICATION COMPLETED USING TWO (2) IDENTIFIERS: Name and Date of confirmed by patient verbally. FALL SCREENING: Has the patient had 2 falls in the last year or 1 fall with injury or currently using an Ambulatory Assistive Device (Walker, Cane, Wheelchair, Crutches, etc.)? No PATIENT GENDER DATA: Female. status: : No status: NO. PATIENT RELEVANT IMPLANT DATA REVIEWED: Not Applicable RADIOLOGY DEPARTMENT: Mammography PERIPHERAL IV DATA: Not applicable SIGNED BY: RT Rosalba(R) April 24, 2022 3:24 PM documented in this encounter [facility] 04-23-2022 History of Present illness Narrative Fang Killian is a 61 year old female who presents for problem visit. HPI: Patient had a CT for LLQ pain while being evaluated for diverticulitis. It showed a possible adnexal mass. Also she has urinary urgency & pelvic floor concerns after surgery with in 2020. 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 Chirinos-reportedly negative/normal. TOTAL ABD HYSTERECTOMY+BLAD REPR 11/02/2019 FAMILY HISTORY Problem Relation Age of Onset No Known Problems Mother Arthritis Father Heart Attack Father 65 No Known Problems Sister No Known Problems Maternal Grandmother No Known Problems Maternal Grandfather No Known Problems Paternal Grandmother No Known Problems Paternal Grandfather No Known Problems Son No Known Problems Son No Known Problems Daughter No Known Problems Daughter Social History Tobacco Use Smoking status: Never Smokeless tobacco: Never Vaping Use Vaping Use: Never used Substance Use Topics Alcohol use: Yes Comment: rare Drug use: Never Current Outpatient Medications Medication Sig lisinopril 2.5 mg tablet Take 1 tablet by mouth once daily. estradiol (ESTRACE) 0.01 % (0.1 mg/gram) vaginal cream INSTILL 0.5 GRAMS VAGINALLY TWICE PER WEEK FOR 90 DAYS calcium carbonate/vitamin D2 (CALCIUM + VITAMIN D ORAL) Take by mouth. No current facility-administered medications for this visit. Allergies As of Date: 04/23/2022 Allergen Noted Reaction SEASONAL ALLERGIES 06/02/2020 Other: See Comments Fully Assessed 04/23/2022 Allergies and current medication updated:Yes EXAM: BP 116/80 Wt 131 lb 12.8 oz (59.8kg) GENERAL: pleasant, female in no apparent distress ASSESSMENT AND PLAN: [address] showing possible adnexal mass, LLQ pain & urinary urgency CT & prior notes reviewed Pelvic US UA & urine culture Patient wishes to proceed with pelvic floor PT before considering referral to urogyn for cystocele & rectocele in addition to urinary urgency. Medical Decision Making: Problems: Moderate: New problem with uncertain prognosis Data: Unique test result(s) reviewed: 1 Unique test(s) ordered: 3+ Risk: Low: Low risk from testing/treatment Medical Decision Making Level: 4 - Moderate] Mk Scott MD documented in this encounter [facility] 04-18-2022 Miscellaneous Notes Spoke with patient. Given message from provider's office. Patient verbalizes understanding. Transferred to cert pharmacy tech for [employer] appointment. Shefali Dunlap RN Called and left a voicemail for the Patient to call back and ask for a nurse to receive the providers message. Melinda Krishnan RN Patient's CT scan is negative for diverticulitis. She has some liver cysts which are likely benign and would not cause her pain. Noted an irregular soft tissue density in her left pelvis which may be from an ovary. Since this is her area of discomfort, will place referral to [employer] for further evaluation. Please assist with scheduling. documented in this encounter [facility] 04-18-2022 Miscellaneous Notes Patient was notified Shoshana Jackson Ma I would recommend she get the CT scan done today so we can see if she has diverticulitis. Clear liquids until then. Temp is normal with fever <100.4. Can take tylenol which would lower her temp and help with pain. Patient was seen by PCP yesterday for possible recurrence of diverticulitis. She is scheduled for CT scan of abdomen tomorrow 04/18. She is calling today because she has developed a low grade fever. Highest temp 99.4 and nausea without vomiting after eating a bagel with butter. Denies worsening abdominal pain. She is asking if PCP has any other recommendations? Shefali Dunlap RN documented in this encounter [facility] 04-16-2022 History of Present illness Narrative Chief Complaint Patient presents with: Follow Up: Patient denies pain but reports discomfort HPI Fang Killian is a 61 year old female who presents here today for Above Complaints. Previous HPI: Patient presented to [facility] ED on 04/01 for complaint of LLQ pain with history of diverticulitis and was found to have WBC of 11.5 with left shift so was started on Augmentin x10 days. Did not have repeat imaging. Symptoms lasted about 24 hours prior to presentation. Today, patient states that she finished her abx on 04/11 and symptoms had resolved. Yesterday she developed some recurrent mild cramping pain in LLQ. Currently 04/02 without radiation. Denies fever/chills, nausea, vomiting, diarrhea, hematochezia, melena, urinary symptoms, . Notes that she returned to normal diet about 4-5 days ago. No abdominal pain on that exam. Workup after last OV was negative for infection or inflammation. Today, patient states that she ate a clear liquid diet over the weekend and her pain had completely resolved. She started back on her low residue diet on Friday and Friday evening she has had some discomfort in LLQ without pain. Denies fever, nausea, vomiting, diarrhea, hematochezia, melena. Past medical history, appointments, medications, allergies reviewed. Previous Medical History PAST MEDICAL HISTORY Diagnosis Date Cystocele with prolapse s/p hysterectomy Diverticulitis 03/15/2021 Essential hypertension situational- trying to get off medication Mixed hyperlipidemia Multiple cysts of breast Spider veins of limb Uterine prolapse Previous Surgical History PAST SURGICAL HISTORY Procedure Laterality Date COLONOSCOPY GEN ANES 2012 Dr. Chirinos-reportedly negative/normal. TOTAL ABD HYSTERECTOMY+BLAD REPR 11/02/2019 Family History FAMILY HISTORY Problem Relation Age of Onset No Known Problems Mother Arthritis Father Heart Attack Father 65 No Known Problems Sister No Known Problems Maternal Grandmother No Known Problems Maternal Grandfather No Known Problems Paternal Grandmother No Known Problems Paternal Grandfather No Known Problems Son No Known Problems Son No Known Problems Daughter No Known Problems Daughter Patient Allergies ALLERGIES Allergen Reactions Seasonal Allergies Other: See Comments Current Medications Current Outpatient Medications on File Prior to Visit Medication Sig lisinopril 2.5 mg tablet Take 1 tablet by mouth once daily. estradiol (ESTRACE) 0.01 % (0.1 mg/gram) vaginal cream INSTILL 0.5 GRAMS VAGINALLY TWICE PER WEEK FOR 90 DAYS calcium carbonate/vitamin D2 (CALCIUM + VITAMIN D ORAL) Take by mouth. No current facility-administered medications on file prior to visit. Social History Social History Tobacco Use Smoking status: Never Smokeless tobacco: Never Vaping Use Vaping Use: Never used Substance Use Topics Alcohol use: Yes Comment: rare Drug use: Never Review of Symptoms REVIEW OF SYSTEMS See HPI EXAM: BP 122/74 Pulse 96 Resp 16 Wt 60 kg (132 lb 3.2 oz) SpO2 98% BMI 21.34 kg/m General Appearance: Well appearing, alert, in no acute distress, well-hydrated, well nourished.. Abdomen: Normal abdominal exam, Abdomen soft, non-tender. Bowel sounds normal. No masses, organomegaly. Health Maintenance List COLORECTAL CANCER SCREENING Never done SHINGRIX VACCINE(2 of 2) due on 09/07/2021 BP CONTROLLED (<130/80) due on 12/06/2021 DEPRESSION ASSESSMENT due on 03/24/2022 MAMMOGRAM due on 09/11/2022 ANNUAL PCP TEAM CHRONIC DISEASE VISIT due on 04/13/2023 DIABETES SCREEN due on 04/13/2025 DTAP,TDAP,TD(2 - Td or Tdap) due on 08/29/2026 LIPID SCREEN due on 03/06/2027 INFLUENZA Completed HEPATITIS C SCREENING Completed COVID-19 VACCINE Completed PAP TESTING Discontinued HPV TESTING Discontinued HIV SCREENING Discontinued Data reviewed Component Latest Ref Rng & Units 04/13/2022 WBC 3.70 - 11.00 k/uL 5.63 RBC 3.90 - 5.20 m/uL 4.70 Hemoglobin 11.5 - 15.5 g/dL 14.6 Hematocrit 36.0 - 46.0 % 43.8 MCV 80.0 - 100.0 fL 93.2 MCH 26.0 - 34.0 pg 31.1 MCHC 30.5 - 36.0 g/dL 33.3 RDW-CV 11.5 - 15.0 % 11.9 Platelet Count 150 - 400 k/uL 222 MPV 9.0 - 12.7 fL 12.1 Neut% % 67.7 Abs Neut (ANC) 1.45 - 7.50 k/uL 3.81 Lymph% % 24.2 Abs Lymph 1.00 - 4.00 k/uL 1.36 Tate% % 6.0 Abs Tate <0.87 k/uL 0.34 Eosin% % 0.5 Abs Eosin <0.46 k/uL 0.03 Baso% % 1.2 Abs Baso <0.11 k/uL 0.07 Immature Gran % % 0.4 IMMATURE GRANS (ABS) <0.10 k/uL <0.03 NRBC /100 WBC 0.0 Absolute nRBC <0.01 k/uL <0.01 DTYPE Auto Protein, Total 6.3 - 8.0 g/dL 7.4 Albumin 3.9 - 4.9 g/dL 4.4 Calcium 8.5 - 10.2 mg/dL 9.6 Bilirubin, Total 0.2 - 1.3 mg/dL 0.4 Alkaline Phosphatase 34 - 123 U/L 54 AST 13 - 35 U/L 19 ALT 7 - 38 U/L 14 Glucose 74 - 99 mg/dL 91 BUN 7 - 21 mg/dL 13 Creatinine 0.58 - 0.96 mg/dL 0.70 Sodium 136 - 144 mmol/L 141 Potassium 3.7 - 5.1 mmol/L 4.4 Chloride 97 - 105 mmol/L 105 CO2 22 - 30 mmol/L 23 Anion Gap 9 - 18 mmol/L 13 eGFR >=60 mL/min/1.73m 99 WSR 0 - 20 mm/hr 5 CRP <0.9 mg/dL <0.3 ASSESSMENT/PLAN: 1. Left lower quadrant abdominal pain - ICD9: 789.04, ICD10: R10.32 Patient continues to complain of LLQ discomfort. Recent labs normal. Will obtain CT scan to evaluate for smoldering diverticulitis. Continue OTC analgesics PRN and low residue diet. Red flags for re-assessment reviewed with patient in detail. - CT ABD/PEL W IVCON Helder Egan MD documented in this encounter [facility] 04-16-2022 Miscellaneous Notes Patient notified. Kristy Aleman LPN Attempted to call patient but line picked up and then hung up. Will attempt to contact patient again at later time. ----- Message from Helder Egan MD sent at 04/15/2022 8:08 AM EST ----- Labs are normal. Keep follow up appointment as discussed for diverticulitis documented in this encounter [facility] 04-13-2022 History of Present illness Narrative Chief Complaint Patient presents with: Diverticulitis: Was just treated for diverticulitis; started ATB 04/01/22 and completed 04/11/22. 04/12/22 started with cramping and discomfort to lower abdomen again. Has appointment with GI but isn't able to get in until May. HPI Fang Killian is a 61 year old female who presents here today for Above Complaints. Patient presented to [facility] ED on 04/01 for complaint of LLQ pain with history of diverticulitis and was found to have WBC of 11.5 with left shift so was started on Augmentin x10 days. Did not have repeat imaging. Symptoms lasted about 24 hours prior to presentation. Today, patient states that she finished her abx on 04/11 and symptoms had resolved. Yesterday she developed some recurrent mild cramping pain in LLQ. Currently 04/02 without radiation. Denies fever/chills, nausea, vomiting, diarrhea, hematochezia, melena, urinary symptoms, . Notes that she returned to normal diet about 4-5 days ago. Past medical history, appointments, medications, allergies reviewed. Previous Medical History PAST MEDICAL HISTORY Diagnosis Date Cystocele with prolapse s/p hysterectomy Diverticulitis 03/15/2021 Essential hypertension situational- trying to get off medication Mixed hyperlipidemia Multiple cysts of breast Spider veins of limb Uterine prolapse Previous Surgical History PAST SURGICAL HISTORY Procedure Laterality Date COLONOSCOPY GEN ANES 2012 Dr. Chirinos-reportedly negative/normal. TOTAL ABD HYSTERECTOMY+BLAD REPR 11/02/2019 Family History FAMILY HISTORY Problem Relation Age of Onset No Known Problems Mother Arthritis Father Heart Attack Father 65 No Known Problems Sister No Known Problems Maternal Grandmother No Known Problems Maternal Grandfather No Known Problems Paternal Grandmother No Known Problems Paternal Grandfather No Known Problems Son No Known Problems Son No Known Problems Daughter No Known Problems Daughter Patient Allergies ALLERGIES Allergen Reactions Seasonal Allergies Other: See Comments Current Medications Current Outpatient Medications on File Prior to Visit Medication Sig lisinopril 2.5 mg tablet Take 1 tablet by mouth once daily. estradiol (ESTRACE) 0.01 % (0.1 mg/gram) vaginal cream INSTILL 0.5 GRAMS VAGINALLY TWICE PER WEEK FOR 90 DAYS calcium carbonate/vitamin D2 (CALCIUM + VITAMIN D ORAL) Take by mouth. No current facility-administered medications on file prior to visit. Social History Social History Tobacco Use Smoking status: Never Smokeless tobacco: Never Vaping Use Vaping Use: Never used Substance Use Topics Alcohol use: Yes Comment: rare Drug use: Never Review of Symptoms REVIEW OF SYSTEMS See HPI EXAM: BP 158/88 Pulse 78 Temp 36.3 C (97.4 F) Resp 16 Wt 61.2 kg (135 lb) SpO2 98% BMI 21.79 kg/m General Appearance: Well appearing, alert, in no acute distress, well-hydrated, well nourished.. Skin: Skin color, texture, turgor normal, no suspicious rashes or lesions. Abdomen: Normal abdominal exam, Abdomen soft, non-tender. Bowel sounds normal. No masses, organomegaly, Negative CVA tenderness. Health Maintenance List COLORECTAL CANCER SCREENING Never done SHINGRIX VACCINE(2 of 2) due on 09/07/2021 BP CONTROLLED (<130/80) due on 12/06/2021 DEPRESSION ASSESSMENT due on 03/24/2022 MAMMOGRAM due on 09/11/2022 ANNUAL PCP TEAM CHRONIC DISEASE VISIT due on 03/06/2023 DIABETES SCREEN due on 03/06/2025 DTAP,TDAP,TD(2 - Td or Tdap) due on 08/29/2026 LIPID SCREEN due on 03/06/2027 INFLUENZA Completed HEPATITIS C SCREENING Completed COVID-19 VACCINE Completed PAP TESTING Discontinued HPV TESTING Discontinued HIV SCREENING Discontinued ASSESSMENT/PLAN: 1. LLQ abdominal pain - ICD9: 789.04, ICD10: R10.32 Patient with mild pain after completing abx treatment for diverticulitis. With normal exam today, will repeat labs and recommend clear liquid diet throughout the weekend. If symptoms change/worsen, would have her call in and will send Cipro/flagyl to pharmacy since she was just treated with Augmentin. Red flags for re-assessment reviewed with patient in detail. F/u in 2-3 days to recheck abdominal pain. - CBC + DIFF - COMP METABOLIC PANEL - SED RATE WESTERGREN - C-REACTIVE PROTEIN (CRP) Helder Egan MD documented in this encounter [facility] 03-08-2022 Miscellaneous Notes Pt notified of results via [employer]. Miya Driscoll Ma ----- Message from Helder Egan MD sent at 03/08/2022 4:32 AM EST ----- Cholesterol looks much better compared to 1 year ago. Other labs normal. No change to regimen. Continue to work on low cholesterol diet and exercise. The 10-year ASCVD risk score (Marycarmen WESTON, et al., 2019) is: 4.3% Values used to calculate the score: Age: 61 years Sex: Female Is Non- : No Diabetic: No Tobacco smoker: No Systolic Blood Pressure: 158 mmHg Is BP treated: No HDL Cholesterol: 65 mg/dL Total Cholesterol: 196 mg/dL documented in this encounter [facility] 09-11-2021 History of Present illness Narrative Radiology Service Progress Note PATIENT NAME: Fang Killian DATE OF SERVICE: September 11, 2021 TIME: 4:47 PM PATIENT IDENTITY VERIFICATION COMPLETED USING TWO (2) IDENTIFIERS: Name and Date of confirmed by patient verbally. FALL SCREENING: Has the patient had 2 falls in the last year or 1 fall with injury or currently using an Ambulatory Assistive Device (Walker, Cane, Wheelchair, Crutches, etc.)? No PATIENT GENDER DATA: Female. status: : No status: NO. PATIENT RELEVANT IMPLANT DATA REVIEWED: Not Applicable RADIOLOGY DEPARTMENT: Ultrasound PERIPHERAL IV DATA: Not applicable SIGNED BY: RT Madhavi(R) September 11, 2021 4:47 PM documented in this encounter [facility] 09-11-2021 History of Present illness Narrative Radiology Service Progress Note PATIENT NAME: Fang Killian DATE OF SERVICE: September 11, 2021 TIME: 3:26 PM PATIENT IDENTITY VERIFICATION COMPLETED USING TWO (2) IDENTIFIERS: Name and Date of confirmed by patient verbally. FALL SCREENING: Has the patient had 2 falls in the last year or 1 fall with injury or currently using an Ambulatory Assistive Device (Walker, Cane, Wheelchair, Crutches, etc.)? No PATIENT GENDER DATA: Female. status: : No status: NO. PATIENT RELEVANT IMPLANT DATA REVIEWED: Not Applicable RADIOLOGY DEPARTMENT: Mammography PERIPHERAL IV DATA: Not applicable SIGNED BY: RT Rosalba(R) September 11, 2021 3:26 PM documented in this encounter [facility] 07-03-2021 Miscellaneous Notes Patient has been identified by name and date of : Yes Patient phones for refill(s): Pending Prescriptions Disp Refills ESTRADIOL 0.01% (0.1 MG/GRAM) VAGINAL CREAM 42.5 g 1 Sig: INSTILL 0.5 GRAMS VAGINALLY TWICE PER WEEK FOR 90 DAYS DEREK: No Date of last office visit in primary care: 03/26/21 Last 2 Encounter Wt Readings: Date: Wt: 03/26/2021 65.8 kg (145 lb) 12/06/2020 63.1 kg (139 lb 0.6 oz) Previous labs/tests for medication: Not applicable Please advise. Thank you. Bernadette Hannah LPN documented in this encounter [facility] Evaluation note Diagnosis Vaginal dryness Other specified symptom associated with female genital organs [facility] Abnormal mammogram Abnormal mammogram, unspecified [facility] noteNo assessment information [facility]: Evaluation note* Diagnosis LLQ abdominal pain- Primary Abdominal pain, left lower quadrant [facility] Diagnosis Left lower quadrant abdominal pain- Primary [facility] Diagnosis LLQ abdominal pain- Primary Abdominal pain, left lower quadrant Abnormal CT of the abdomen Nonspecific (abnormal) findings on radiological and other examination of abdominal area, including retroperitoneum [facility] Diagnosis Urinary urgency- Primary Urgency of urination LLQ abdominal pain Abdominal pain, left lower quadrant Abnormal CT of the abdomen Nonspecific (abnormal) findings on radiological and other examination of abdominal area, including retroperitoneum Adnexal mass Other specified symptom associated with female genital organs [facility] Diagnosis Vaginal dryness Other specified symptom associated with female genital organs [facility] Diagnosis Urinary urgency- Primary Urgency of urination Muscle weakness Muscle weakness (generalized) [facility] Diagnosis Muscle weakness- Primary Muscle weakness (generalized) Urinary urgency Urgency of urination [facility] Diagnosis Vaginal dryness Other specified symptom associated with female genital organs [facility] Diagnosis Encounter for screening mammogram for breast cancer [facility] Diagnosis Mass overlapping multiple quadrants of left breast- Primary [facility] Diagnosis Screening for colon cancer Special screening for malignant neoplasms, colon Abnormal ultrasound of breast Other (abnormal) findings on radiological examination of breast Postoperative pain Other acute postoperative pain [facility] Diagnosis Status post breast biopsy- Primary Other postprocedural status [facility] Diagnosis Abnormal mammogram Abnormal mammogram, unspecified [facility] Diagnosis Invasive ductal carcinoma of breast, left (HCC)- Primary [facility] Diagnosis Invasive ductal carcinoma of breast, left (HCC) [facility] Diagnosis Cancer of breast, intraductal, left- Primary Encounter for screening for osteoporosis Special screening for osteoporosis Does not have primary care provider Vaginal dryness Other specified symptom associated with female genital organs Malignant neoplasm of central portion of left female breast, unspecified estrogen receptor status (HCC) [facility] Diagnosis Lymphedema- Primary Other lymphedema Malignant neoplasm of central portion of left female breast, unspecified estrogen receptor status (HCC) Pre-op testing Preoperative examination, unspecified Malignant neoplasm of central portion of left female breast, unspecified estrogen receptor status (HCC) [facility] Diagnosis Malignant neoplasm of central portion of left female breast, unspecified estrogen receptor status (HCC)- Primary Malignant neoplasm of central portion of left female breast, unspecified estrogen receptor status (HCC) [facility] Diagnosis Invasive carcinoma of breast (HCC)- Primary Malignant neoplasm of central portion of left female breast, unspecified estrogen receptor status (HCC) [facility] Diagnosis Preoperative examination- Primary Preoperative examination, unspecified Essential hypertension Unspecified essential hypertension Mixed hyperlipidemia Malignant neoplasm of central portion of left female breast, unspecified estrogen receptor status (HCC) [facility] Diagnosis Invasive carcinoma of breast (HCC)- Primary [facility] Diagnosis Breast cyst, right [facility] Diagnosis Encounter for screening mammogram for breast cancer [facility] Diagnosis Mass overlapping multiple quadrants of left breast [facility] Diagnosis Abnormal CT of the abdomen Nonspecific (abnormal) findings on radiological and other examination of abdominal area, including retroperitoneum Adnexal mass Other specified symptom associated with female genital organs [facility] Diagnosis Hypercalcemia- Primary [facility] Diagnosis Invasive carcinoma of breast (HCC)- Primary documented in this encounter [facility] note* Diagnosis Malignant neoplasm of central portion of left female breast, unspecified estrogen receptor status (HCC)- Primary [facility] Diagnosis Malignant neoplasm of central portion of left female breast, unspecified estrogen receptor status (HCC)- Primary documented in this encounter [facility] note* Diagnosis Invasive carcinoma of breast (HCC)- Primary [facility] Diagnosis Other specified disorders of kidney and ureter- Primary Abnormal finding on diagnostic imaging of kidney Hypercalcemia documented in this encounter [facility] note* Diagnosis Screening for genitourinary condition Screening for other and unspecified genitourinary condition [facility] Diagnosis Malignant neoplasm of central portion of left female breast, unspecified estrogen receptor status (HCC)- Primary [facility] Diagnosis Hypercalcemia- Primary Hyperparathyroidism (HCC) Hyperparathyroidism, unspecified [facility] Diagnosis Renal lesion- Primary Unspecified disorder of kidney and ureter Other specified disorders of kidney and ureter [facility] Diagnosis Screening for genitourinary condition Screening for other and unspecified genitourinary condition [facility] Diagnosis Renal lesion Unspecified disorder of kidney and ureter Other specified disorders of kidney and ureter [facility] Diagnosis Nevus of left upper arm- Primary Fibrous papule of nose Benign neoplasm of skin of other and unspecified parts of face [facility] Diagnosis Invasive carcinoma of breast (HCC)- Primary Hypercalcemia [facility] Diagnosis Hyperparathyroidism (HCC)- Primary Hyperparathyroidism, unspecified Hypercalciuria Unspecified disorders of calcium metabolism Osteoporosis, unspecified osteoporosis type, unspecified pathological fracture presence [facility] Diagnosis Renal cyst- Primary Unspecified congenital cystic kidney disease [facility] Diagnosis Lentigines- Primary Other dyschromia Multiple benign nevi Benign neoplasm of skin, site unspecified Angioma of skin Hemangioma of skin and subcutaneous tissue Seborrheic keratoses Other seborrheic keratosis [facility] Diagnosis Encounter for gynecological examination (general) (routine) without abnormal findings- Primary FAIZAN (stress urinary incontinence, female) Female stress incontinence [facility] Diagnosis Preoperative examination- Primary Preoperative examination, unspecified Essential hypertension Unspecified essential hypertension Mixed hyperlipidemia Invasive carcinoma of breast (HCC) [facility] Diagnosis Preoperative examination- Primary Preoperative examination, unspecified Essential hypertension Unspecified essential hypertension Mixed hyperlipidemia FAIZAN (stress urinary incontinence, female)- Primary Female stress incontinence Female genital prolapse, unspecified type [facility] Diagnosis Preoperative examination- Primary Preoperative examination, unspecified Essential hypertension Unspecified essential hypertension Mixed hyperlipidemia Encounter for routine cancer follow-up- Primary Other follow-up examination Invasive carcinoma of breast (HCC) [facility] Diagnosis Preoperative examination- Primary Preoperative examination, unspecified Essential hypertension Unspecified essential hypertension Mixed hyperlipidemia Encounter for screening mammogram for breast cancer- Primary [facility] Diagnosis Preoperative examination- Primary Preoperative examination, unspecified Essential hypertension Unspecified essential hypertension Mixed hyperlipidemia FAIZAN (stress urinary incontinence, female)- Primary Female stress incontinence Muscle weakness Muscle weakness (generalized) [facility] Diagnosis Preoperative examination- Primary Preoperative examination, unspecified Essential hypertension Unspecified essential hypertension Mixed hyperlipidemia Cancer of breast, intraductal, left [facility] Diagnosis Preoperative examination- Primary Preoperative examination, unspecified Essential hypertension Unspecified essential hypertension Mixed hyperlipidemia Shortness of breath [facility] Diagnosis Preoperative examination- Primary Preoperative examination, unspecified Essential hypertension Unspecified essential hypertension Mixed hyperlipidemia FAIZAN (stress urinary incontinence, female)- Primary Female stress incontinence [facility] Diagnosis Preoperative examination- Primary Preoperative examination, unspecified Essential hypertension Unspecified essential hypertension Mixed hyperlipidemia Chest pain, unspecified type- Primary Uterovaginal prolapse Uterovaginal prolapse, unspecified Primary hypertension Unspecified essential hypertension Mixed hyperlipidemia FAIZAN (stress urinary incontinence, female) Female stress incontinence Invasive carcinoma of breast (HCC) Shortness of breath Shortness of breath [facility] Diagnosis Preoperative examination- Primary Preoperative examination, unspecified Essential hypertension Unspecified essential hypertension Mixed hyperlipidemia Mixed hyperlipidemia- Primary [facility] Diagnosis Preoperative examination- Primary Preoperative examination, unspecified Essential hypertension Unspecified essential hypertension Mixed hyperlipidemia Chest pain, unspecified type documented [facility] Diagnosis Preoperative examination- Primary Preoperative examination, unspecified Essential hypertension Unspecified essential hypertension Mixed hyperlipidemia Muscle weakness- Primary Muscle weakness (generalized) FAIZAN (stress urinary incontinence, female) Female stress incontinence documented [facility] Diagnosis Preoperative examination- Primary Preoperative examination, unspecified Essential hypertension Unspecified essential hypertension Mixed hyperlipidemia Mixed hyperlipidemia- Primary Screening for depression Encounter for screening examination for other mental health and behavioral disorders Hypertension, unspecified type Diverticulosis Diverticulosis of colon (without mention of hemorrhage) [facility] Diagnosis Preoperative examination- Primary Preoperative examination, unspecified Essential hypertension Unspecified essential hypertension Mixed hyperlipidemia History of breast cancer- Primary Personal history of malignant neoplasm of breast Breast pain Mastodynia documented [facility] this [facility] Diagnosis Preoperative examination- Primary Preoperative examination, unspecified Essential hypertension Unspecified essential hypertension Mixed hyperlipidemia Genitourinary syndrome of menopause documented [facility] Diagnosis Preoperative examination- Primary Preoperative examination, unspecified Essential hypertension Unspecified essential hypertension Mixed hyperlipidemia Genitourinary syndrome of menopause- Primary Localized osteoporosis without current pathological fracture Vaginal vault prolapse Unspecified prolapse of vaginal hutton Encounter for screening for osteoporosis Special screening for osteoporosis documented [facility] Diagnosis Preoperative examination- Primary Preoperative examination, unspecified Essential hypertension Unspecified essential hypertension Mixed hyperlipidemia Breast pain Mastodynia [facility] Diagnosis Preoperative examination- Primary Preoperative examination, unspecified Essential hypertension Unspecified essential hypertension Mixed hyperlipidemia Breast pain Mastodynia [facility] Diagnosis Preoperative examination- Primary Preoperative examination, unspecified Essential hypertension Unspecified essential hypertension Mixed hyperlipidemia Chest pain, unspecified type- Primary Primary hypertension Unspecified essential hypertension Mixed hyperlipidemia Shortness of breath Essential hypertension Unspecified essential hypertension Hyperlipidemia LDL goal <100 Other and unspecified hyperlipidemia Malignant neoplasm of central portion of left female breast, unspecified estrogen receptor status (HCC) documented in this encounter [facility] note* Diagnosis Preoperative examination- Primary Preoperative examination, unspecified Essential hypertension Unspecified essential hypertension Mixed hyperlipidemia Mixed hyperlipidemia [facility] Diagnosis Preoperative examination- Primary Preoperative examination, unspecified Essential hypertension Unspecified essential hypertension Mixed hyperlipidemia Screening for breast cancer using non-mammogram modality- Primary documented [facility] Diagnosis Preoperative examination- Primary Preoperative examination, unspecified Essential hypertension Unspecified essential hypertension Mixed hyperlipidemia Chest pain, unspecified type- Primary Exercise counseling Primary hypertension Unspecified essential hypertension Mixed hyperlipidemia Lack of energy Other malaise and fatigue Essential hypertension Unspecified essential hypertension Good exercise tolerance Need for home exercise program Difficulty managing exercise regime Counseling on health promotion and disease prevention Other specified counseling documented [facility] this [facility] Diagnosis Preoperative examination- Primary Preoperative examination, unspecified Essential hypertension Unspecified essential hypertension Mixed hyperlipidemia Senile osteoporosis- Primary Vitamin D deficiency Unspecified vitamin D deficiency documented [facility] this [facility] Diagnosis Preoperative examination- Primary Preoperative examination, unspecified Essential hypertension Unspecified essential hypertension Mixed hyperlipidemia Invasive carcinoma of breast (HCC)- Primary History of abnormal mammogram Other specified personal history presenting hazards to health [facility] Diagnosis Preoperative examination- Primary Preoperative examination, unspecified Essential hypertension Unspecified essential hypertension Mixed hyperlipidemia Mixed hyperlipidemia- Primary Hypertension, unspecified type Diverticulosis Diverticulosis of colon (without mention of hemorrhage) Uterovaginal prolapse Uterovaginal prolapse, unspecified Age-related osteoporosis without current pathological fracture Senile osteoporosis Chest pain on breathing Painful respiration documented in this encounter [facility] Discharge instructions Additional Instructions You are being treated for clinical diverticulitis. White count 11. Take antibiotic as prescribed use Tylenol or ibuprofen. Return if any worsening symptoms. Follow-up with GI as an outpatient for plan colonoscopy.[facility] Work Phone: Reason for referral (narrative)* Diagnostic Procedure Only (Routine) - Authorized Specialty Diagnoses / Procedures Referred By Anthony t Referred To Contact US IMAGING Diagnoses Abnormal CT of the abdomen Adnexal mass Procedures US FEMALE PELVIS TRANSABD LTD US PELVIC NONOBSTETRIC IMAGE DCMTN LIMITED/F/U Mk Scott MD [address] [place] [address] Us Imaging Referral ID Status Reason Start Date Expiration Date Visits Requested Visits Authorized [id number] Authorized Auto-Generat ed Referral 04/23/2022 05/23/2023 1 1 * Diagnostic Procedure Only (Routine) - Pending Review Specialty Diagnoses / Procedures Referred By Contac t Referred To Contact [facility] IM[facility] Diagnoses Abnormal CT of the abdomen Adnexal mass Procedures US FEMALE PELVIS TRANSVAG US TRANSVAGINAL Mk Scott MD [address] [place] [address] Us Imaging Referral ID Status Reason Start Date Expiration Date Visits Requested Visits Authorized [id number] Pending Review Auto-Generat ed Referral 04/23/2022 05/23/2023 1 1 * Diagnostic Procedure Only (Routine) - Pending Review Specialty Diagnoses / Procedures Referred By Contac t Referred To Contact [facility] Diagnoses Abnormal CT of the abdomen Adnexal mass Procedures PELVIC US WHI US PELVIC NONOBSTETRIC REAL-TIME IMAGE COMPLETE Mk Scott MD [address] [place] [address] [address] Referral ID Status Reason Start Date Expiration Date Visits Requested Visits Authorized [id number] Pending Review Auto-Generat ed Referral 04/23/2022 04/23/2023 1 1 * Physical Therapy (Routine) - Pending Review Specialty Diagnoses / Procedures Referred By Contac t [facility] Diagnoses Urinary urgency Procedures CONSULT TO PHYSICAL THERAPY PHYSICAL THERAPY EVALUATION HIGH COMPLEX 45 MINS Mk Scott MD [address] [place] [address] [address] Referral ID Status Reason Start Date Expiration Date Visits Requested Visits Authorized [id number] Pending Review Auto-Generat ed Referral 04/23/2022 04/23/2023 1 1 [facility] for referral (narrative)* Diagnostic Procedure Only (Routine) - Pending Review Specialty Diagnoses / Procedures Referred By Anthony vilchis Referred To Contact [facility] Diagnoses Encounter for screening mammogram for breast cancer Procedures ERIK SCREENING W ATNONIO SCREENING DIGITAL BREAST TOMOSYNTHESIS BI SCREENING MAMMOGRAPHY BI 2-VIEW BREAST INC CAD Helder Egan MD [address] [place] [address] Br Imaging [address] [place] [address] Referral ID Status Reason Start Date Expiration Date Visits Requested Visits Authorized [id number] Pending Review Auto-Generat ed Referral 10/16/2022 11/15/2023 1 1 [facility] for referral (narrative)* Diagnostic Procedure Only (Routine) - Pending Review Specialty Diagnoses / Procedures Referred By Anthony vilchis Referred To Contact [facility] Diagnoses Mass overlapping multiple quadrants of left breast Procedures ERIK DIAGNOSTIC BILATERAL DIAGNOSTIC MAMMOGRAPHY COMPUTER-AIDED DETCJ BI Summer Parada APRN.HEAD OF ACADEMIC TECHNOLOGY [address] [place] [address] Br Imaging [address] [place] [address] Referral ID Status Reason Start Date Expiration Date Visits Requested Visits Authorized [id number] Pending Review Auto-Generat ed Referral 11/06/2022 12/06/2023 1 1 * Diagnostic Procedure Only (Routine) - Pending Review Specialty Diagnoses / Procedures Referred By Anthony vilchis Referred To Contact [facility] Diagnoses Mass overlapping multiple quadrants of left breast Procedures US BREAST LTD LEFT US BREAST UNI REAL TIME WITH IMAGE LIMITED Summer Parada APRN.HEAD OF ACADEMIC TECHNOLOGY [address] [place] [address] Br Imaging [address] [place] [address] Referral ID Status Reason Start Date Expiration Date Visits Requested Visits Authorized [id number] Pending Review Auto-Generat ed Referral 11/06/2022 12/06/2023 1 1 [facility] for referral (narrative)* Outpatient Procedure (Routine) - Pending Review Specialty Diagnoses / Procedures Referred By Contac t Referred To Contact [facility] Diagnoses Screening for colon cancer Procedures COLONOSCOPY SCREENING COLONOSCOPY FLX DX W/COLLJ SPEC WHEN PFRMD Ning Salinas MD [address] [place] [address] [facility] [address] [place] [address] Referral ID Status Reason Start Date Expiration Date Visits Requested Visits Authorized [id number] Pending Review Auto-Generat ed Referral 11/18/2022 11/19/2023 1 1 * Diagnostic Procedure Only (Routine) - Pending Review Specialty Diagnoses / Procedures Referred By Contac t Referred To Contact [facility] Diagnoses Abnormal ultrasound of breast Procedures ERIK DIAGNOSTIC LEFT DIAGNOSTIC MAMMOGRAPHY COMPUTER-AIDED DETCJ UNI Ning Salinas MD [address] [place] [address] Br Imaging [address] [place] [phone] Referral ID Status Reason Start Date Expiration Date Visits Requested Visits Authorized [id number] Pending Review Auto-Generat ed Referral 11/18/2022 12/18/2023 1 1 [facility] for referral (narrative)* Diagnostic Procedure Only (Routine) - Closed Specialty Diagnoses / Procedures Referred By Contac t Referred To Contact [facility] Diagnoses Abnormal mammogram Malignant neoplasm of central portion of left female breast, unspecified estrogen receptor status (HCC) Procedures US BIOPSY BREAST LEFT BX BREAST W/DEVICE 1ST LESION ULTRASOUND Nona Sandy MD [address] [place] [address] Br Imaging [address] [place] [phone] Referral ID Status Reason Start Date Expiration Date V isits Requested Visits Authorized [id number] Closed Auto-Generat ed Referral Patient Cleared - Admin/Chairm an/Director advise to proceed or did not respond 12/20/2022 03/23/2023 1 1 [facility] for referral (narrative)* Diagnostic Procedure Only (Routine) - Authorized Specialty Diagnoses / Procedures Referred By Anthony vilchis Referred To Contact [facility] Diagnoses Invasive ductal carcinoma of breast, left (HCC) Procedures MRI BREAST WO/W IVCON BILATERAL MRI BREAST WITHOUT&WITH CONTRAST W/CAD BILATERAL Nona Phillips MD [address] [place] [address] Mr Imaging [facility] Referral ID Status Reason Start Date Expiration Date Visits Requested Visits Authorized [id number] Authorized Auto-Generat ed Referral 12/25/2022 01/24/2024 1 1 [facility] for referral (narrative)* Diagnostic Procedure Only (Routine) - Pending Review Specialty Diagnoses / Procedures Referred By Anthony vilchis Referred To Contact [facility] Diagnoses Malignant neoplasm of central portion of left female breast, unspecified estrogen receptor status (HCC) Procedures NM LYMPH NODE IMAGING LYMPHATICS & LYMPH NODES IMAGING Nona Phillips MD [address] [place] [address] [facility] [address] [place] [address] Referral ID Status Reason Start Date Expiration Date Visits Requested Visits Authorized [id number] Pending Review Auto-Generat ed Referral 02/05/2024 1 1 * Outpatient Procedure (Routine) - Pending Review Specialty Diagnoses / Procedures Referred By Anthony vilchis Ref[facility] Diagnoses Malignant neoplasm of central portion of left female breast, unspecified estrogen receptor status (HCC) Pre-op testing Procedures ECG COMPLETE ECG ROUTINE ECG W/LEAST 12 LDS W/I&R Nona Phillips MD [address] [place] [address] [facility] [address] [place] [address] Referral ID Status Reason Start Date Expiration Date Visits Requested Visits Authorized [id number] Pending Review Auto-Generat ed Referral 3 01/06/2024 1 1 [facility] for referral (narrative)* Diagnostic Procedure Only (Routine) - Closed Specialty Diagnoses / Procedures Referred By Contac t Referred To Contact [facility] Diagnoses Abnormal CT of the abdomen Adnexal mass Procedures US FEMALE PELVIS TRANSABD LTD [facility]IC [facility] Mk Scott MD [address] [place] [address] Us Imaging [facility] Referral ID Status Reason Start Date Expiration Date V isits Requested Visits Authorized [id number] Closed Auto-Generate d Referral 04/23/2022 05/23/2023 1 1 * Diagnostic Procedure Only (Routine) - Closed Specialty Diagnoses / Procedures [facility] Referred To Contact [facility] Diagnoses Abnormal CT of the abdomen Adnexal mass Procedures US FEMALE PELVIS TRANSVAG US TRANSVAGINAL Mk Scott MD [address] [place] [address] [place] [address] Referral ID Status Reason Start Date Expiration Date V isits Requested Visits Authorized [id number] Closed Auto-Generate d Referral 04/23/2022 05/23/2023 1 1 [facility] for referral (narrative)* Diagnostic Procedure Only (Routine) - Pending Review Specialty Diagnoses / Procedures Referred By [facility] Referred To Contact [facility] Diagnoses Hypercalcemia Hyperparathyroidism (HCC) Procedures NM PARATHYROID W SPECT/CT PARATHYROID IMAGING W/TOMOGRAPHIC SPECT & CT Petty Shea MD [address] [place] [address] Molecular [facility] [address] [place] [address] Referral ID Status Reason Start Date Expiration Date Visits Requested Visits Authorized [id number] Pending Review Auto-Generat ed Referral 05/21/2023 06/19/2024 1 1 [facility] for referral (narrative)* Diagnostic Procedure Only (Routine) - New Request Specialty Diagnoses / Procedures Referred By Anthony vilchis Referred To Contact [facility] Diagnoses Encounter for screening mammogram for breast cancer Procedures ERIK SCREENING W ANTONIO SCREENING DIGITAL BREAST TOMOSYNTHESIS BI SCREENING MAMMOGRAPHY BI 2-VIEW BREAST INC CAD Kimberlee Lion MD [address] [place] [address] [facility] Imaging [address] [place] [phone] Referral ID Status Reason Start Date Expiration Date Visits Requested Visits Authorized [id number] New Request Auto-Generat ed Referral 12/04/2024 01/03/2025 1 1 [facility] for referral (narrative)* Outpatient Procedure (Routine) - Pending Review Specialty Diagnoses / Procedures Referred By Anthony vilchis Ref[facility] Diagnoses Mixed hyperlipidemia Procedures ECG COMPLETE ECG ROUTINE ECG W/LEAST 12 LDS W/I&R Morelia Mills MD [address] [place] [address] [facility] [address] [place] [address] Referral ID Status Reason Start Date Expiration Date Visits Requested Visits Authorized [id number] Pending Review Auto-Generat ed Referral 01/23/2024 01/22/2025 1 1 [facility] for referral (narrative)* Outpatient Procedure (Routine) - New Request Specialty Diagnoses / Procedures Referred By Contac t Referred To Contact [facility] Diagnoses Mixed hyperlipidemia Hypertension, unspecified type Procedures ECHO ECHO TTHRC R-T 2D W/WOM-MODE COMPL SPEC&COLR D Ross Sanders MD, PhD [address] [place] [address] [address] Referral ID Status Reason Start Date Expiration Date Visits Requested Visits Authorized [id number] New Request Auto-Generat ed Referral 4 03/08/2025 1 1 * Outpatient Procedure (Routine) - New Request Specialty Diagnoses / Procedures Referred By [facility] Referred To Contact [facility] Diagnoses Mixed hyperlipidemia Hypertension, unspecified type Procedures ECG COMPLETE ECG ROUTINE ECG W/LEAST 12 LDS W/I&R [place] [address] [place] [address] [address] Referral ID Status Reason Start Date Expiration Date Visits Requested Visits Authorized [id number] New Request Auto-Generat ed Referral 4 03/08/2025 1 1 [facility] for referral (narrative)* Diagnostic Procedure Only (Routine) - Pending Review Specialty Diagnoses / Procedures Referred By Contac t Referred To Contact [facility] Diagnoses Breast pain Procedures US BREAST LTD RIGHT US BREAST UNI REAL [place] [address] [place] [address] [facility] [address] [place] [phone] Referral ID Status Reason Start Date Expiration Date Visits Requested Visits Authorized [id number] Pending Review Auto-Generat ed Referral 03/29/2024 04/28/2025 1 1 * Diagnostic Procedure Only (Routine) - Pending Review Specialty Diagnoses / Procedures Referred By Anthony vilchis Referred To Contact [facility] Diagnoses Breast pain Procedures ERIK DIAGNOSTIC RIGHT DIAGNOSTIC MAMMOGRAPHY COMPUTER-AIDED DETCJ UNI Kimberlee Lion MD [address] [place] [address] Br Imaging [address] [place], [place] [phone] Referral ID Status Reason Start Date Expiration Date Visits Requested Visits Authorized [id number] Pending Review Auto-Generat ed Referral 03/29/2024 04/28/2025 1 1 [facility] for visit Narrative* Diagnostic Procedure Only (Routine) - Closed Specialty Diagnoses / Procedures Referred By Anthony vilchis Referred To Contact [facility] Diagnoses Abnormal mammogram Procedures ERIK DIAGNOSTIC BILAT DIAGNOSTIC MAMMOGRAPHY COMPUTER-AIDED DETCJ BI Morelia Echols APRN.HEAD OF ACADEMIC TECHNOLOGY [address] [place] [address] Br Imaging [address] [place] [phone] Referral ID Status Reason Start Date Expiration Date V isits Requested Visits Authorized [id number] Closed Auto-Generate d Referral 09/11/2021 03/23/2022 1 1 [facility] for visit Narrative* Diagnostic Procedure Only (Routine) - Closed Specialty Diagnoses / Procedures Referred By Anthony vilchis Referred To Contact [facility] Diagnoses Abnormal mammogram Malignant neoplasm of central portion of left female breast, unspecified estrogen receptor status (HCC) Procedures US BIOPSY BREAST LEFT BX BREAST W/DEVICE 1ST LESION ULTRASOUND GUID Nona Phillips MD [address] [place] [id number] [facility] [address] [place] [phone] Referral ID Status Reason Start Date Expiration Date V isits Requested Visits Authorized [id number] Closed Auto-Generat ed Referral Patient Cleared - Admin/Chairm an/Director advise to proceed or did not respond 12/20/2022 03/23/2023 1 1 [facility] for visit Narrative* Diagnostic Procedure Only (Routine) - Closed Specialty Diagnoses / Procedures Referred By Contac t Referred To Contact [facility] Diagnoses Breast cyst, right Procedures ERIK DIAGNOSTIC RT DIAGNOSTIC MAMMOGRAPHY COMPUTER-AIDED DETCJ UNI Helder Egan MD [address] [place] [address] Br Imaging [address] [place] [address] Referral ID Status Reason Start Date Expiration Date V isits Requested Visits Authorized [id number] Closed Auto-Generate d Referral 09/11/2021 10/11/2022 1 1 [facility] for visit Narrative* Diagnostic Procedure Only (Routine) - Closed Specialty Diagnoses / Procedures Referred By Anthony t Referred To Contact [facility] Diagnoses Encounter for screening mammogram for breast cancer Procedures ERIK SCREENING W ANTONIO SCREENING DIGITAL BREAST TOMOSYNTHESIS BI SCREENING MAMMOGRAPHY BI 2-VIEW BREAST INC CAD Helder Egan MD [address] [place] [address] Br Imaging [address] [place] [address] Referral ID Status Reason Start Date Expiration Date V isits Requested Visits Authorized [id number] Closed Auto-Generate d Referral 10/16/2022 11/15/2023 1 0 [facility] for visit Narrative* Diagnostic Procedure Only (Routine) - Closed Specialty Diagnoses / Procedures Referred By Anthony t Referred To Contact [facility] Diagnoses Mass overlapping multiple quadrants of left breast Procedures ERIK DIAGNOSTIC BILATERAL DIAGNOSTIC MAMMOGRAPHY COMPUTER-AIDED DETCJ BI Summer Parada, BETO.HEAD OF ACADEMIC TECHNOLOGY [address] [place] [address] Br Imaging [address] [place] [address] Referral ID Status Reason Start Date Expiration Date V isits Requested Visits Authorized [id number] Closed Auto-Generate d Referral 11/12/2022 03/23/2023 2 2 [facility] for visit Narrative* Diagnostic Procedure Only (Routine) - Closed Specialty Diagnoses / Procedures Referred By Contac t Referred To Contact [facility] Diagnoses Invasive carcinoma of breast (HCC) Procedures ERIK SCREENING W ANTONIO SCREENING DIGITAL BREAST TOMOSYNTHESIS BI SCREENING MAMMOGRAPHY BI 2-VIEW BREAST INC CAD Kimberlee Lion MD [address] [place] [address] [facility] Imaging [address] [place] [address] Referral ID Status Reason Start Date Expiration Date V isits Requested Visits Authorized [id number] Closed Auto-Generate d Referral 07/04/2023 08/01/2024 1 1 [facility] for visit Narrative* Diagnostic Procedure Only (Routine) - Closed Specialty Diagnoses / Procedures Referred By Contac t Referred To Contact [facility] Diagnoses Breast pain Procedures US BREAST LTD RIGHT US BREAST UNI REAL TIME WITH IMAGE LIMITED Kimberlee Lion MD [address] [place] [address] Phone: tel: fax: [facility] [address] [place] [phone] Referral ID Status Reason Start Date Expiration Date V isits Requested Visits Authorized [id number] Closed Auto-Generat ed Referral Patient Cleared - Admin/Chairm an/Director advise to proceed or did not respond 05/26/2024 03/23/2025 1 1 [facility] for visit Narrative* Diagnostic Procedure Only (Routine) - Closed Specialty Diagnoses / Procedures Referred By Contac t Referred To Contact [facility] Diagnoses Breast pain Procedures ERIK DIAGNOSTIC RIGHT DIAGNOSTIC MAMMOGRAPHY COMPUTER-AIDED DETCJ UNI Kimberlee Lion MD [address] [place] [address] Phone: tel: fax: [facility] [address] [place] [address] Referral ID Status Reason Start Date Expiration Date V isits Requested Visits Authorized [id number] Closed Auto-Generat ed Referral Patient Cleared - Admin/Chairm an/Director advise to proceed or did not respond 05/26/2024 03/23/2025 1 1 [facility] for visit Narrative* Outpatient Procedure (Routine) - Closed Specialty Diagnoses / Procedures Referred By Contac t Referred To Contact [facility] Diagnoses Mixed hyperlipidemia Procedures ECG COMPLETE ECG ROUTINE ECG W/LEAST 12 LDS W/I&R Morelia Mills MD [address] [place] [address] Phone: tel: fax: [facility] [address] [place] [address] Referral ID Status Reason Start Date Expiration Date V isits Requested Visits Authorized [id number] Closed Auto-Generate d Referral 06/02/2024 03/23/2025 1 1 [facility] Chief Complaint and Reason for Visit Chief Complaint ABD PAIN Chief Complaint TONGUE BIOPSY Family History No Family History Records Found 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 Condition Age at Onset Recorded Date/T saul father Cardiac disease Unknown mother Cardiac disease Unknown Advance Directives No Advanced Directives Records Found Advance Directive Response Recorded Date/ Time Living Will No April 01 3 7:39pm Power of Mixing Machine Tender Cork Gasket No April 01 023 7:39pm Advance Directive Response Recorded Date/ Time Living Will No April 01 3 8:39pm Power of Mixing Machine Tender Cork Gasket No April 01 023 8:39pm Reason for Referral Specialty Diagnoses / Procedures Referred By Contac t Referred To Contact CT IMAGING Diagnoses Left lower quadrant abdominal pain Procedures CT ABD/PEL W IVCON CT ABD & PELVIS W/CONTRAST Helder Egan MD [address] [place] [address] Ct Imaging Referral ID Status Reason Start Date Expiration Date Visits Requested Visits Authorized [id number] Authorized Auto-Generat ed Referral 04/16/2022 05/16/2023 1 1 Specialty Diagnoses / Procedures Referred By Contac t Referred To Contact Gynecology Diagnoses LLQ abdominal pain Abnormal CT of the abdomen Procedures CONSULT TO GYNECOLOGY OFFICE/OUTPATIENT [facility] 60-74 MINUTES Helder Egan MD [address] [place] [address] Referral ID Status Reason Start Date Expiration Date Visits Requested Visits Authorized [id number] Pending Review PCP Requested Referral Auto-Generate d Referral 04/18/2022 04/18/2023 1 1 Specialty Diagnoses / Procedures Referred By Contac t Referred To Contact [facility] Diagnoses Urinary urgency Procedures PT REHAB FOLLOW UP ORDER THERAPEUTIC EXERCISES RE, EA 15 MIN. Henny Caicedo, PT [address] [place] [address] [facility] [address] [place] [address] Referral ID Status Reason Start Date Expiration Date Visits Requested Visits Authorized [id number] Pending Review PCP Requested Referral Auto-Generate d Referral 07/26/2022 10/24/2022 1 1 Specialty Diagnoses / Procedures Referred By Contac t Referred To Contact [facility]IC[facility] Diagnoses Does not have primary care provider Procedures ESTABLISH WITH PRIMARY CARE NEW PATIENT OFFICE/OUTPATIENT [facility] 60-74 MINUTES Kimberlee Lion MD [address] [place] [address] [facility] [address] [place] [address] Referral ID Status Reason Start Date Expiration Date V isits Requested Visits Authorized [id number] Closed PCP Requested Referral 01/06/2023 01/06/2024 1 1 Specialty Diagnoses / Procedures Referred By Contac t Referred To Contact Endocrinology Diagnoses Hypercalcemia Procedures CONSULT TO ENDOCRINOLOGY OFFICE/OUTPATIENT [facility] 60-74 MINUTES Kimberlee Lion MD [address] [place] [address] Referral ID Status Reason Start Date Expiration Date Visits Requested Visits Authorized [id number] Pending Review PCP Requested Referral 01/27/2024 1 1 Specialty Diagnoses / Procedures Referred By Contac t Referred To Contact CT IMAGING Diagnoses Other specified disorders of kidney and ureter Procedures CT UROGRAM WO/W IVCON CT ABD & PELVIS W/WO CONTRST 1+ BODY REGNS Natanael Echeverria MD [address] [facility] [place] [address] [place] [address] Referral ID Status Reason Start Date Expiration Date Visits Requested Visits Authorized [id number] Pending Review Auto-Generat ed Referral 03/28/2023 04/26/2024 1 1 Specialty Diagnoses / Procedures Referred By Contac t Referred To Contact CT IMAGING Diagnoses Renal lesion Other specified disorders of kidney and ureter Procedures CT KIDNEY WO/W IVCON CT ABDOMEN W & W/O CONTRAST Juan Abdul MD [address] [place] [address] Ct Imaging [place] [address] Referral ID Status Reason Start Date Expiration Date Visits Requested Visits Authorized [id number] Pending Review Auto-Generat ed Referral 05/21/2023 06/19/2024 1 1 Referral ID Status Reason Start Date Expiration Date V isits Requested Visits Authorized [id number] Closed Auto-Generat ed Referral Patient Cleared - Admin/Chairm an/Director advise to proceed or did not respond 06/05/2023 03/23/2024 1 1 Specialty Diagnoses / Procedures Referred By Contac t Referred To Contact Endocrinology Diagnoses Hypercalcemia Procedures CONSULT TO ENDOCRINOLOGY OFFICE/OUTPATIENT [facility] 60 MINUTES Kimberlee Lion MD [facility] [place] [address] Referral ID Status Reason Start Date Expiration Date Visits Requested Visits Authorized [id number] Pending Review PCP Requested Referral 07/10/2023 07/02/2024 1 1 Specialty Diagnoses / Procedures Referred By Contac t Referred To Contact [facility] Diagnoses Invasive carcinoma of breast (HCC) Procedures ERIK SCREENING W ANTONIO SCREENING DIGITAL BREAST TOMOSYNTHESIS BI SCREENING MAMMOGRAPHY BI 2-VIEW BREAST INC CAD Kimberlee Lion MD [address] [place] [address] [facility] [address] [place], [place] [id number] Referral ID Status Reason Start Date Expiration Date Visits Requested Visits Authorized [id number] Pending Review Auto-Generat ed Referral 07/04/2023 08/01/2024 1 1 Specialty Diagnoses / Procedures Referred By Contac t Referred To Contact [facility] Diagnoses FAIZAN (stress urinary incontinence, female) Procedures CONSULT TO PHYSICAL THERAPY PHYSICAL THERAPY EVALUATION HIGH COMPLEX 45 MINS Mk Scott MD [address] [place] [address] [facility] [address] [place] [address] Referral ID Status Reason Start Date Expiration Date Visits Requested Visits Authorized [id number] Pending Review Auto-Generat ed Referral 11/21/2023 11/20/2024 1 1 Specialty Diagnoses / Procedures Referred By Contac t Referred To Contact CT IMAGING Diagnoses Chest pain, unspecified type Procedures CTA CORONARY W IVCON CTA HRT CORNRY ART/BYPASS GRFTS CONTRST 3D POST John Bennett, DO [address] [place] [id number] Imaging [place] [address] Referral ID Status Reason Start Date Expiration Date Visits Requested Visits Authorized [id number] Authorized Auto-Generat ed Referral 01/28/2024 03/23/2024 1 1 Specialty Diagnoses / Procedures Referred By Contac t Referred To Contact Cardiology Diagnoses Primary hypertension Mixed hyperlipidemia Shortness of breath Procedures CONSULT TO CARDIOLOGY OFFICE/OUTPATIENT NEW HIGH MDM 60 MINUTES John Bennett, DO [address] [place] [id number] Referral ID Status Reason Start Date Expiration Date Visits Requested Visits Authorized [id number] Pending Review PCP Requested Referral 01/01/2025 1 1 Specialty Diagnoses / Procedures Referred By Contac t Referred To [facility] Diagnoses Primary hypertension Shortness of breath Procedures ECG COMPLETE ECG ROUTINE ECG W/LEAST 12 LDS W/I&R John Bennett, DO [address] [place] [address] [facility] [address] [place] [id number] Referral ID Status Reason Start Date Expiration Date Visits Requested Visits Authorized [id number] New Request Auto-Generat ed Referral 01/01/2025 1 1 Referral ID Status Reason Start Date Expiration Date V isits Requested Visits Authorized [id number] Closed Auto-Generate d Referral 01/28/2024 03/23/2024 1 1 Medications Administered Section Inactive Administered Medications - up to 3 most recent administrations Medication Order MAR Action Action Date Dose Rate Site lidocaine 20 mg/mL (2 %) injection (XYLOCAINE) X (OR/PROCEDURE) PRN, Starting on Fri12/20/22 at 1115, Until 12/20/22 at 1115, Intraprocedure Given 12/20/2022 11:15 AM EDT 5 mL Breast, Left Summary Purpose Additional Source Comments Source Comments (unrecognize d section and content) In the event this informatio n is protected by the Federal Confidentiality of Alcohol and Drug Abuse Patient Records regulations: The Federal rules restrict any use of the information to criminally investigate or prosecute any alcohol or drug abuse patient.[facility] the event this information is protected by the Federal Confidentiality of Alcohol and Drug Abuse Patient Records regulations: The Federal rules restrict any use of the information to criminally investigate or prosecute any alcohol or drug abuse patient.[facility] the event this information is protected by the Federal Confidentiality of Alcohol and Drug Abuse Patient Records regulations: The Federal rules restrict any use of the information to criminally investigate or prosecute any alcohol or drug abuse patient.[facility] the event this information is protected by the Federal Confidentiality of Alcohol and Drug Abuse Patient Records regulations: The Federal rules restrict any use of the information to criminally investigate or prosecute any alcohol or drug abuse patient.[facility] the event this information is protected by the Federal Confidentiality of Alcohol and Drug Abuse Patient Records regulations: The Federal rules restrict any use of the information to criminally investigate or prosecute any alcohol or drug abuse patient.[facility] the event this information is protected by the Federal Confidentiality of Alcohol and Drug Abuse Patient Records regulations: The Federal rules restrict any use of the information to criminally investigate or prosecute any alcohol or drug abuse patient.[facility] the event this information is protected by the Federal Confidentiality of Alcohol and Drug Abuse Patient Records regulations: The Federal rules restrict any use of the information to criminally investigate or prosecute any alcohol or drug abuse patient.[facility] the event this information is protected by the Federal Confidentiality of Alcohol and Drug Abuse Patient Records regulations: The Federal rules restrict any use of the information to criminally investigate or prosecute any alcohol or drug abuse patient.[facility] the event this information is protected by the Federal Confidentiality of Alcohol and Drug Abuse Patient Records regulations: The Federal rules restrict any use of the information to criminally investigate or prosecute any alcohol or drug abuse patient.[facility] the event this information is protected by the Federal Confidentiality of Alcohol and Drug Abuse Patient Records regulations: The Federal rules restrict any use of the information to criminally investigate or prosecute any alcohol or drug abuse patient.[facility] the event this information is protected by the Federal Confidentiality of Alcohol and Drug Abuse Patient Records regulations: The Federal rules restrict any use of the information to criminally investigate or prosecute any alcohol or drug abuse patient.[facility] the event this information is protected by the Federal Confidentiality of Alcohol and Drug Abuse Patient Records regulations: The Federal rules restrict any use of the information to criminally investigate or prosecute any alcohol or drug abuse patient.[facility] the event this information is protected by the Federal Confidentiality of Alcohol and Drug Abuse Patient Records regulations: The Federal rules restrict any use of the information to criminally investigate or prosecute any alcohol or drug abuse patient.[facility] the event this information is protected by the Federal Confidentiality of Alcohol and Drug Abuse Patient Records regulations: The Federal rules restrict any use of the information to criminally investigate or prosecute any alcohol or drug abuse patient.[facility] the event this information is protected by the Federal Confidentiality of Alcohol and Drug Abuse Patient Records regulations: The Federal rules restrict any use of the information to criminally investigate or prosecute any alcohol or drug abuse patient.[facility] the event this information is protected by the Federal Confidentiality of Alcohol and Drug Abuse Patient Records regulations: The Federal rules restrict any use of the information to criminally investigate or prosecute any alcohol or drug abuse patient.[facility] the event this information is protected by the Federal Confidentiality of Alcohol and Drug Abuse Patient Records regulations: The Federal rules restrict any use of the information to criminally investigate or prosecute any alcohol or drug abuse patient.[facility] the event this information is protected by the Federal Confidentiality of Alcohol and Drug Abuse Patient Records regulations: The Federal rules restrict any use of the information to criminally investigate or prosecute any alcohol or drug abuse patient.[facility]In the event this information is protected by the Federal Confidentiality of Alcohol and Drug Abuse Patient Records regulations: The Federal rules restrict any use of the information to criminally investigate or prosecute any alcohol or drug abuse patient.[facility]In the event this information is protected by the Federal Confidentiality of Alcohol and Drug Abuse Patient Records regulations: The Federal rules restrict any use of the information to criminally investigate or prosecute any alcohol or drug abuse patient.[facility] the event this information is protected by the Federal Confidentiality of Alcohol and Drug Abuse Patient Records regulations: The Federal rules restrict any use of the information to criminally investigate or prosecute any alcohol or drug abuse patient.[facility] the event this information is protected by the Federal Confidentiality of Alcohol and Drug Abuse Patient Records regulations: The Federal rules restrict any use of the information to criminally investigate or prosecute any alcohol or drug abuse patient.[facility]In the event this information is protected by the Federal Confidentiality of Alcohol and Drug Abuse Patient Records regulations: The Federal rules restrict any use of the information to criminally investigate or prosecute any alcohol or drug abuse patient.[facility]In the event this information is protected by the Federal Confidentiality of Alcohol and Drug Abuse Patient Records regulations: The Federal rules restrict any use of the information to criminally investigate or prosecute any alcohol or drug abuse patient.[facility]In the event this information is protected by the Federal Confidentiality of Alcohol and Drug Abuse Patient Records regulations: The Federal rules restrict any use of the information to criminally investigate or prosecute any alcohol or drug abuse patient.[facility] the event this information is protected by the Federal Confidentiality of Alcohol and Drug Abuse Patient Records regulations: The Federal rules restrict any use of the information to criminally investigate or prosecute any alcohol or drug abuse patient.[facility] the event this information is protected by the Federal Confidentiality of Alcohol and Drug Abuse Patient Records regulations: The Federal rules restrict any use of the information to criminally investigate or prosecute any alcohol or drug abuse patient.[facility]In the event this information is protected by the Federal Confidentiality of Alcohol and Drug Abuse Patient Records regulations: The Federal rules restrict any use of the information to criminally investigate or prosecute any alcohol or drug abuse patient.[facility]In the event this information is protected by the Federal Confidentiality of Alcohol and Drug Abuse Patient Records regulations: The Federal rules restrict any use of the information to criminally investigate or prosecute any alcohol or drug abuse patient.[facility]In the event this information is protected by the Federal Confidentiality of Alcohol and Drug Abuse Patient Records regulations: The Federal rules restrict any use of the information to criminally investigate or prosecute any alcohol or drug abuse patient.[facility]In the event this information is protected by the Federal Confidentiality of Alcohol and Drug Abuse Patient Records regulations: The Federal rules restrict any use of the information to criminally investigate or prosecute any alcohol or drug abuse patient.[facility]In the event this information is protected by the Federal Confidentiality of Alcohol and Drug Abuse Patient Records regulations: The Federal rules restrict any use of the information to criminally investigate or prosecute any alcohol or drug abuse patient.[facility]In the event this information is protected by the Federal Confidentiality of Alcohol and Drug Abuse Patient Records regulations: The Federal rules restrict any use of the information to criminally investigate or prosecute any alcohol or drug abuse patient.[facility]In the event this information is protected by the Federal Confidentiality of Alcohol and Drug Abuse Patient Records regulations: The Federal rules restrict any use of the information to criminally investigate or prosecute any alcohol or drug abuse patient.[facility]In the event this information is protected by the Federal Confidentiality of Alcohol and Drug Abuse Patient Records regulations: The Federal rules restrict any use of the information to criminally investigate or prosecute any alcohol or drug abuse patient.[facility]In the event this information is protected by the Federal Confidentiality of Alcohol and Drug Abuse Patient Records regulations: The Federal rules restrict any use of the information to criminally investigate or prosecute any alcohol or drug abuse patient.[facility]In the event this information is protected by the Federal Confidentiality of Alcohol and Drug Abuse Patient Records regulations: The Federal rules restrict any use of the information to criminally investigate or prosecute any alcohol or drug abuse patient.[facility]In the event this information is protected by the Federal Confidentiality of Alcohol and Drug Abuse Patient Records regulations: The Federal rules restrict any use of the information to criminally investigate or prosecute any alcohol or drug abuse patient.[facility]In the event this information is protected by the Federal Confidentiality of Alcohol and Drug Abuse Patient Records regulations: The Federal rules restrict any use of the information to criminally investigate or prosecute any alcohol or drug abuse patient.[facility]In the event this information is protected by the Federal Confidentiality of Alcohol and Drug Abuse Patient Records regulations: The Federal rules restrict any use of the information to criminally investigate or prosecute any alcohol or drug abuse patient.[facility]In the event this information is protected by the Federal Confidentiality of Alcohol and Drug Abuse Patient Records regulations: The Federal rules restrict any use of the information to criminally investigate or prosecute any alcohol or drug abuse patient.[facility]In the event this information is protected by the Federal Confidentiality of Alcohol and Drug Abuse Patient Records regulations: The Federal rules restrict any use of the information to criminally investigate or prosecute any alcohol or drug abuse patient.[facility]In the event this information is protected by the Federal Confidentiality of Alcohol and Drug Abuse Patient Records regulations: The Federal rules restrict any use of the information to criminally investigate or prosecute any alcohol or drug abuse patient.[facility]In the event this information is protected by the Federal Confidentiality of Alcohol and Drug Abuse Patient Records regulations: The Federal rules restrict any use of the information to criminally investigate or prosecute any alcohol or drug abuse patient.[facility]In the event this information is protected by the Federal Confidentiality of Alcohol and Drug Abuse Patient Records regulations: The Federal rules restrict any use of the information to criminally investigate or prosecute any alcohol or drug abuse patient.[facility]In the event this information is protected by the Federal Confidentiality of Alcohol and Drug Abuse Patient Records regulations: The Federal rules restrict any use of the information to criminally investigate or prosecute any alcohol or drug abuse patient.[facility]In the event this information is protected by the Federal Confidentiality of Alcohol and Drug Abuse Patient Records regulations: The Federal rules restrict any use of the information to criminally investigate or prosecute any alcohol or drug abuse patient.[facility]In the event this information is protected by the Federal Confidentiality of Alcohol and Drug Abuse Patient Records regulations: The Federal rules restrict any use of the information to criminally investigate or prosecute any alcohol or drug abuse patient.[facility]In the event this information is protected by the Federal Confidentiality of Alcohol and Drug Abuse Patient Records regulations: The Federal rules restrict any use of the information to criminally investigate or prosecute any alcohol or drug abuse patient.[facility]In the event this information is protected by the Federal Confidentiality of Alcohol and Drug Abuse Patient Records regulations: The Federal rules restrict any use of the information to criminally investigate or prosecute any alcohol or drug abuse patient.[facility]In the event this information is protected by the Federal Confidentiality of Alcohol and Drug Abuse Patient Records regulations: The Federal rules restrict any use of the information to criminally investigate or prosecute any alcohol or drug abuse patient.[facility]In the event this information is protected by the Federal Confidentiality of Alcohol and Drug Abuse Patient Records regulations: The Federal rules restrict any use of the information to criminally investigate or prosecute any alcohol or drug abuse patient.[facility]In the event this information is protected by the Federal Confidentiality of Alcohol and Drug Abuse Patient Records regulations: The Federal rules restrict any use of the information to criminally investigate or prosecute any alcohol or drug abuse patient.[facility]In the event this information is protected by the Federal Confidentiality of Alcohol and Drug Abuse Patient Records regulations: The Federal rules restrict any use of the information to criminally investigate or prosecute any alcohol or drug abuse patient.[facility]In the event this information is protected by the Federal Confidentiality of Alcohol and Drug Abuse Patient Records regulations: The Federal rules restrict any use of the information to criminally investigate or prosecute any alcohol or drug abuse patient.[facility] HospitalIn the event this information is protected by the Federal Confidentiality of Alcohol and Drug Abuse Patient Records regulations: The Federal rules restrict any use of the information to criminally investigate or prosecute any alcohol or drug abuse patient.[facility] HospitalIn the event this information is protected by the Federal Confidentiality of Alcohol and Drug Abuse Patient Records regulations: The Federal rules restrict any use of the information to criminally investigate or prosecute any alcohol or drug abuse patient.[facility] HospitalIn the event this information is protected by the Federal Confidentiality of Alcohol and Drug Abuse Patient Records regulations: The Federal rules restrict any use of the information to criminally investigate or prosecute any alcohol or drug abuse patient.[facility] the event this information is protected by the Federal Confidentiality of Alcohol and Drug Abuse Patient Records regulations: The Federal rules restrict any use of the information to criminally investigate or prosecute any alcohol or drug abuse patient.[facility] HospitalIn the event this information is protected by the Federal Confidentiality of Alcohol and Drug Abuse Patient Records regulations: The Federal rules restrict any use of the information to criminally investigate or prosecute any alcohol or drug abuse patient.[facility] HospitalIn the event this information is protected by the Federal Confidentiality of Alcohol and Drug Abuse Patient Records regulations: The Federal rules restrict any use of the information to criminally investigate or prosecute any alcohol or drug abuse patient.[facility] HospitalIn the event this information is protected by the Federal Confidentiality of Alcohol and Drug Abuse Patient Records regulations: The Federal rules restrict any use of the information to criminally investigate or prosecute any alcohol or drug abuse patient.[facility] HospitalIn the event this information is protected by the Federal Confidentiality of Alcohol and Drug Abuse Patient Records regulations: The Federal rules restrict any use of the information to criminally investigate or prosecute any alcohol or drug abuse patient.[facility] HospitalIn the event this information is protected by the Federal Confidentiality of Alcohol and Drug Abuse Patient Records regulations: The Federal rules restrict any use of the information to criminally investigate or prosecute any alcohol or drug abuse patient.[facility] HospitalIn the event this information is protected by the Federal Confidentiality of Alcohol and Drug Abuse Patient Records regulations: The Federal rules restrict any use of the information to criminally investigate or prosecute any alcohol or drug abuse patient.[facility] HospitalIn the event this information is protected by the Federal Confidentiality of Alcohol and Drug Abuse Patient Records regulations: The Federal rules restrict any use of the information to criminally investigate or prosecute any alcohol or drug abuse patient.[facility] HospitalIn the event this information is protected by the Federal Confidentiality of Alcohol and Drug Abuse Patient Records regulations: The Federal rules restrict any use of the information to criminally investigate or prosecute any alcohol or drug abuse patient.[facility] HospitalIn the event this information is protected by the Federal Confidentiality of Alcohol and Drug Abuse Patient Records regulations: The Federal rules restrict any use of the information to criminally investigate or prosecute any alcohol or drug abuse patient.[facility] HospitalIn the event this information is protected by the Federal Confidentiality of Alcohol and Drug Abuse Patient Records regulations: The Federal rules restrict any use of the information to criminally investigate or prosecute any alcohol or drug abuse patient.[facility] HospitalIn the event this information is protected by the Federal Confidentiality of Alcohol and Drug Abuse Patient Records regulations: The Federal rules restrict any use of the information to criminally investigate or prosecute any alcohol or drug abuse patient.[facility] HospitalIn the event this information is protected by the Federal Confidentiality of Alcohol and Drug Abuse Patient Records regulations: The Federal rules restrict any use of the information to criminally investigate or prosecute any alcohol or drug abuse patient.[facility] HospitalIn the event this information is protected by the Federal Confidentiality of Alcohol and Drug Abuse Patient Records regulations: The Federal rules restrict any use of the information to criminally investigate or prosecute any alcohol or drug abuse patient.[facility] HospitalIn the event this information is protected by the Federal Confidentiality of Alcohol and Drug Abuse Patient Records regulations: The Federal rules restrict any use of the information to criminally investigate or prosecute any alcohol or drug abuse patient.[facility] HospitalIn the event this information is protected by the Federal Confidentiality of Alcohol and Drug Abuse Patient Records regulations: The Federal rules restrict any use of the information to criminally investigate or prosecute any alcohol or drug abuse patient.[facility] HospitalIn the event this information is protected by the Federal Confidentiality of Alcohol and Drug Abuse Patient Records regulations: The Federal rules restrict any use of the information to criminally investigate or prosecute any alcohol or drug abuse patient.[facility] HospitalIn the event this information is protected by the Federal Confidentiality of Alcohol and Drug Abuse Patient Records regulations: The Federal rules restrict any use of the information to criminally investigate or prosecute any alcohol or drug abuse patient.[facility] HospitalIn the event this information is protected by the Federal Confidentiality of Alcohol and Drug Abuse Patient Records regulations: The Federal rules restrict any use of the information to criminally investigate or prosecute any alcohol or drug abuse patient.[facility] HospitalIn the event this information is protected by the Federal Confidentiality of Alcohol and Drug Abuse Patient Records regulations: The Federal rules restrict any use of the information to criminally investigate or prosecute any alcohol or drug abuse patient.[facility] HospitalIn the event this information is protected by the Federal Confidentiality of Alcohol and Drug Abuse Patient Records regulations: The Federal rules restrict any use of the information to criminally investigate or prosecute any alcohol or drug abuse patient.[facility] HospitalIn the event this information is protected by the Federal Confidentiality of Alcohol and Drug Abuse Patient Records regulations: The Federal rules restrict any use of the information to criminally investigate or prosecute any alcohol or drug abuse patient.[facility] HospitalIn the event this information is protected by the Federal Confidentiality of Alcohol and Drug Abuse Patient Records regulations: The Federal rules restrict any use of the information to criminally investigate or prosecute any alcohol or drug abuse patient.[facility] HospitalIn the event this information is protected by the Federal Confidentiality of Alcohol and Drug Abuse Patient Records regulations: The Federal rules restrict any use of the information to criminally investigate or prosecute any alcohol or drug abuse patient.[facility]In the event this information is protected by the Federal Confidentiality of Alcohol and Drug Abuse Patient Records regulations: The Federal rules restrict any use of the information to criminally investigate or prosecute any alcohol or drug abuse patient.[facility] HospitalIn the event this information is protected by the Federal Confidentiality of Alcohol and Drug Abuse Patient Records regulations: The Federal rules restrict any use of the information to criminally investigate or prosecute any alcohol or drug abuse patient.[facility]In the event this information is protected by the Federal Confidentiality of Alcohol and Drug Abuse Patient Records regulations: The Federal rules restrict any use of the information to criminally investigate or prosecute any alcohol or drug abuse patient.[facility] HospitalIn the event this information is protected by the Federal Confidentiality of Alcohol and Drug Abuse Patient Records regulations: The Federal rules restrict any use of the information to criminally investigate or prosecute any alcohol or drug abuse patient.[facility]In the event this information is protected by the Federal Confidentiality of Alcohol and Drug Abuse Patient Records regulations: The Federal rules restrict any use of the information to criminally investigate or prosecute any alcohol or drug abuse patient.[facility] HospitalIn the event this information is protected by the Federal Confidentiality of Alcohol and Drug Abuse Patient Records regulations: The Federal rules restrict any use of the information to criminally investigate or prosecute any alcohol or drug abuse patient.[facility] HospitalIn the event this information is protected by the Federal Confidentiality of Alcohol and Drug Abuse Patient Records regulations: The Federal rules restrict any use of the information to criminally investigate or prosecute any alcohol or drug abuse patient.[facility] HospitalIn the event this information is protected by the Federal Confidentiality of Alcohol and Drug Abuse Patient Records regulations: The Federal rules restrict any use of the information to criminally investigate or prosecute any alcohol or drug abuse patient.[facility]In the event this information is protected by the Federal Confidentiality of Alcohol and Drug Abuse Patient Records regulations: The Federal rules restrict any use of the information to criminally investigate or prosecute any alcohol or drug abuse patient.[facility] HospitalIn the event this information is protected by the Federal Confidentiality of Alcohol and Drug Abuse Patient Records regulations: The Federal rules restrict any use of the information to criminally investigate or prosecute any alcohol or drug abuse patient.[facility] HospitalIn the event this information is protected by the Federal Confidentiality of Alcohol and Drug Abuse Patient Records regulations: The Federal rules restrict any use of the information to criminally investigate or prosecute any alcohol or drug abuse patient.[facility] HospitalIn the event this information is protected by the Federal Confidentiality of Alcohol and Drug Abuse Patient Records regulations: The Federal rules restrict any use of the information to criminally investigate or prosecute any alcohol or drug abuse patient.[facility] HospitalIn the event this information is protected by the Federal Confidentiality of Alcohol and Drug Abuse Patient Records regulations: The Federal rules restrict any use of the information to criminally investigate or prosecute any alcohol or drug abuse patient.[facility] HospitalIn the event this information is protected by the Federal Confidentiality of Alcohol and Drug Abuse Patient Records regulations: The Federal rules restrict any use of the information to criminally investigate or prosecute any alcohol or drug abuse patient.[facility] HospitalIn the event this information is protected by the Federal Confidentiality of Alcohol and Drug Abuse Patient Records regulations: The Federal rules restrict any use of the information to criminally investigate or prosecute any alcohol or drug abuse patient.[facility] Reason for Visit (unrecogniz ed section and content) Reason Comments PT Discharge Specialty Diagnoses / Procedures Referred By Contac t Referred To Contact [facility] Diagnoses FAIZAN (stress urinary incontinence, female) Procedures CONSULT TO PHYSICAL THERAPY PHYSICAL THERAPY EVALUATION HIGH COMPLEX 45 MINS Mk Scott MD [address] [place] [address] [facility] [place] [phone] Referral ID Status Reason Start Date Expiration Date Visits Requested Visits Authorized [id number] Authorized Auto-Generat ed Referral 11/21/2023 03/23/2024 20 20 Reason Comments Consult Specialty Diagnoses / Procedures Referred By Contac t Referred To Contact Urology / [facility] Diagnoses Renal lesion Procedures CONSULT TO UROLOGY OFFICE/OUTPATIENT [facility] 60 MINUTES Ross Sanders MD, PhD [address] [id number] [place] [id number] Referral ID Status Reason Start Date Expiration Date V isits Requested Visits Authorized [id number] Closed PCP Requested Referral OON/Self Pay Override 05/21/2023 03/23/2024 1 1 Reason Comments PT Progress Note Specialty Diagnoses / Procedures Referred By Contac t Referred To Contact [facility] Diagnoses Urinary urgency Procedures CONSULT TO PHYSICAL THERAPY PHYSICAL THERAPY EVALUATION HIGH COMPLEX 45 MINS Mk Scott MD [address] [place] [address] [facility] [place] [address] [place] [address] Referral ID Status Reason Start Date Expiration Date Visits Requested Visits Authorized [id number] Authorized Auto-Generat ed Referral 03/24/2022 03/23/2023 45 45 Reason Onset Date Comments Refill Request 07/02/2021 Reason Comments Radiology US Specialty Diagnoses / Procedures Referred By Contac t Referred To Contact [facility] Diagnoses Abnormal mammogram Procedures US BREAST LTD RT US BREAST UNILAT INCL AXILLA LIMITED Podlogar, BETO Thibodeaux.HEAD OF ACADEMIC TECHNOLOGY [address] [place] [address] [facility] [address] [place] [address] Referral ID Status Reason Start Date Expiration Date V isits Requested Visits Authorized [id number] Closed Auto-Generate d Referral 09/11/2021 03/23/2022 1 1 Reason Comments Results Reason Comments Diverticulitis Was just treated for diverticulitis; started ATB 04/01/22 and completed 04/11/22. 04/12/22 started with cramping and discomfort to lower abdomen again. Has appointment with GI but isn't able to get in until May. Reason Comments Follow Up Patient denies pain but reports discomfort Reason Comments Patient Update Reason Comments Results Appointment Reason Comments Follow Up Specialty Diagnoses / Procedures Referred By Contac t Referred To Contact Gynecology Diagnoses LLQ abdominal pain Abnormal CT of the abdomen Procedures CONSULT TO GYNECOLOGY OFFICE/OUTPATIENT NEW HIGH MDM 60-74 MINUTES Helder Egan MD [address] [place] [address] Referral ID Status Reason Start Date Expiration Date Visits Requested Visits Authorized [id number] Pending Review PCP Requested Referral Auto-Generate d Referral 04/18/2022 04/18/2023 1 1 Reason Comments Patient Question Reason Onset Date Comments Refill Request 06/25/2022 Reason Comments PT Eval Specialty Diagnoses / Procedures Referred By Contac t Referred To Contact [facility] Diagnoses Urinary urgency Procedures CONSULT TO PHYSICAL THERAPY PHYSICAL THERAPY EVALUATION HIGH COMPLEX 45 MINS Mk Scott MD [address] [place] [address] [facility] [address] [address] Reason Comments Physical Therapy Reason Onset Date Comments Refill Request 10/07/2022 Reason Comments Breast Problem Reason Comments Consult Breast mass Procedure US guided left needl e core breast biopsy. Specialty Diagnoses / Procedures Referred By Anthony vilchis Referred To Contact General Surgery Diagnoses Screening for colon cancer Procedures CONSULT TO GENERAL SURGERY OFFICE/OUTPATIENT NEW HIGH MDM 60-74 MINUTES Helder Egan MD [address] [place] [address] Referral ID Status Reason Start Date Expiration Date Visits Requested Visits Authorized [id number] Pending Review PCP Requested Referral 2 03/06/2023 1 1 Reason Comments Follow Up Check breast incisio n Reason Comments Appointment Dr Phillips Reason Comments Radiology MRI Specialty Diagnoses / Procedures Referred By Anthony vilchis Referred To Contact [facility] IMAG[facility] Diagnoses Invasive ductal carcinoma of breast, left (HCC) Procedures MRI BREAST WO/W IVCON BILATERAL MRI BREAST WITHOUT&WITH CONTRAST W/CAD BILATERAL Nona Phillips MD [address] [place] [address] Mr Imaging [place] [address] Referral ID Status Reason Start Date Expiration Date V isits Requested Visits Authorized [id number] Closed Auto-Generate d Referral 12/25/2022 01/24/2024 1 1 Reason Comments Patient Education LEFT Mastectomy LEFT SNLBX Specialty Diagnoses / Procedures Referred By Anthony vilchis Referred To Contact General Surgery / GENERAL SURGERY Diagnoses SURGERY DISCUSSION POST BIOPSY Procedures EST BRCR SURGICAL Self oNna Phillips MD [address] [place] [address] Referral ID Status Reason Start Date Expiration Date Visits Re quested Visits Authorized [id number] Closed 12/26/2022 03/23/2023 1 1 Reason Comments Consult Reason Onset Date Comments Refill Request 01/11/2023 Reason Comments Follow Up 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 Specialty Diagnoses / Procedures Referred By Anthony vilchis Referred To Contact [facility] Diagnoses Mass overlapping multiple quadrants of left breast Procedures US BREAST LTD LEFT US BREAST UNI REAL TIME WITH IMAGE LIMITED Summer Parada APRN.HEAD OF ACADEMIC TECHNOLOGY [address] [place] [address] [facility] [address] [place] [phone] Referral ID Status Reason Start Date Expiration Date V isits Requested Visits Authorized [id number] Closed Auto-Generate d Referral 11/12/2022 03/23/2023 1 1 Specialty Diagnoses / Procedures Referred By Contac t Referred To Contact CT IMAGING Diagnoses Left lower quadrant abdominal pain Procedures CT ABD/PEL W IVCON CT ABD & PELVIS W/CONTRAST Helder Egan MD [address] [place] [address] Ct Imaging [id number] Referral ID Status Reason Start Date Expiration Date V isits Requested Visits Authorized [id number] Closed Auto-Generate d Referral 04/16/2022 05/16/2023 1 1 Reason Comments Radiology US Specialty Diagnoses / Procedures Referred By Contac t Referred To Contact US IMAGING Diagnoses Abnormal CT of the abdomen Adnexal mass Procedures US FEMALE PELVIS TRANSABD LTD US PELVIC NONOBSTETRIC IMAGE DCMTN LIMITED/F/U Mk Scott MD [address] [place] [address] Us Imaging [id number] Referral ID Status Reason Start Date Expiration Date V isits Requested Visits Authorized [id number] Closed Auto-Generate d Referral 04/23/2022 05/23/2023 1 1 Reason Comments PT Eval Specialty Diagnoses / Procedures Referred By Contac t Referred To Contact [facility] Diagnoses Malignant neoplasm of central portion of left female breast, unspecified estrogen receptor status (HCC) Procedures CONSULT TO BREAST REHAB PROGRAM THERAPEUTIC EXERCISES RE, EA 15 MIN. THERAPEUT ACTVITY DIRECT PT CONTACT EACH 15 MIN Nona Phillips MD [address] [place] [address] [facility] [place] [address] [place] [id number] Referral ID Status Reason Start Date Expiration Date Visits Requested Visits Authorized [id number] Authorized PCP Requested Referral Auto-Generate d Referral 03/24/2022 03/23/2023 39 45 Reason Comments Established Patient Reason Comments Consult Hypercalcemia abnormal kidney imaging Specialty Diagnoses / Procedures Referred By Contac t Referred To Contact Nephrology / KIDNEY MEDICINE Diagnoses Hypercalcemia Procedures CONSULT TO NEPHROLOGY OFFICE/OUTPATIENT [facility] 60-74 MINUTES Kimberlee Lion MD [facility] [place] [address] Kidney Med Main [address] [place] [address] Referral ID Status Reason Start Date Expiration Date V isits Requested Visits Authorized [id number] Closed PCP Requested Referral 03/28/2023 03/23/2024 1 1 Reason Comments Post Op Follow Up Reason Comments Radiology CT Specialty Diagnoses / Procedures Referred By Contac t Referred To Contact CT IMAGING Diagnoses Renal lesion Other specified disorders of kidney and ureter Procedures CT KIDNEY WO/W IVCON CT ABDOMEN W & W/O CONTRAST Juan Abdul MD [facility] [place] [address] Ct Imaging [place] [address] Referral ID Status Reason Start Date Expiration Date V isits Requested Visits Authorized [id number] Closed Auto-Generat ed Referral Patient Cleared - Admin/Chairm an/Director advise to proceed or did not respond 06/05/2023 03/23/2024 1 1 Reason Comments Radiology NM Specialty Diagnoses / Procedures Referred By Contac t Referred To Contact MOLECULAR [facility] FUNCTIONAL IMAGING Diagnoses Hypercalcemia Hyperparathyroidism (HCC) Procedures NM PARATHYROID W SPECT/CT PARATHYROID IMAGING W/TOMOGRAPHIC SPECT & CT Petty Shea MD [address] [place] [address] [facility] Functional [facility] [address] [place] [address] Referral ID Status Reason Start Date Expiration Date V isits Requested Visits Authorized [id number] Closed Auto-Generate d Referral 06/03/2023 03/23/2024 1 1 Reason Comments LESION, SKIN Specialty Diagnoses / Procedures Referred By Contac t Referred To Contact Dermatology / DERMATOLOGY Diagnoses Skin mole Procedures CONSULT TO DERMATOLOGY OFFICE/OUTPATIENT [facility] 60 MINUTES Ross Sanders MD, PhD [address] [place] [address] Derm Main [address] [place] [address] Referral ID Status Reason Start Date Expiration Date Visits Re quested Visits Authorized [id number] Closed 07/03/2023 03/23/2024 1 1 Reason Comments Established Patient Reason Onset Date Comments Refill Request 07/15/2023 Reason Comments Osteoporosis Reason Comments Full Body Skin Check Reason Comments Yearly Exam Specialty Diagnoses / Procedures Referred By Contac t Referred To Contact Mold 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 / 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 Diagnoses pelvic exam Procedures [facility] AN[facility] Self Mk Scott MD [address] [place] [phone] Referral ID Status Reason Start Date Expiration Date Visits Re quested Visits Authorized [id number] Closed 11/07/2023 02/05/2024 1 1 Reason Comments Pessary Reason Onset Date Comments Refill Request 12/15/2023 Reason Onset Date Comments Refill Request 01/08/2024 Specialty Diagnoses / Procedures Referred By Contac t Referred To Contact Radiology / [facility] Diagnoses main lobby Procedures XR CHEST John Bennett DO [address] [place] [phone] Radio General [facility] [address] [place] [address] Referral ID Status Reason Start Date Expiration Date Visits Re quested Visits Authorized [id number] Closed 01/12/2024 01/12/2024 1 1 Reason Comments Pessary Reason Comments Multiple Concerns Patient states after having a mastectomy she has been experiencing fatigue, sob and tightness to chest area. She wants to rule out if its anxiety related or Cardiac issue. Symptoms are off and on for past year. Reason Comments Radiology CTA Specialty Diagnoses / Procedures Referred By Contac t Referred To Contact CT IMAGING Diagnoses Chest pain, unspecified type Procedures CTA CORONARY W IVCON CTA HRT CORNRY ART/BYPASS GRFTS CONTRST 3D POST John Bennett DO [address] [place] [phone] [place] [address] Referral ID Status Reason Start Date Expiration Date V isits Requested Visits Authorized [id number] Closed Auto-Generate d Referral 01/28/2024 03/23/2024 1 1 Reason Comments Follow Up Reason Onset Date Comments Refill Request 04/01/2024 Reason Comments Refill Request Reason Comments medication refill Reason Comments CARD New Patient Consult Specialty Diagnoses / Procedures Referred By Contac t Referred To Contact Cardiology / INTERNAL MEDICINE Diagnoses Primary hypertension Mixed hyperlipidemia Shortness of breath Procedures CONSULT TO CARDIOLOGY OFFICE/OUTPATIENT NEW HIGH MDM 60 MINUTES John Bennett DO [address] [place] [address] Phone: tel:[phone] fax: Internal Medicine [address] [place] [address] [address] [place] [address] Phone: tel: Referral ID Status Reason Start Date Expiration Date V isits Requested Visits Authorized [id number] Closed PCP Requested Referral 06/02/2024 03/23/2025 1 1 Reason Comments Exercise Prescription Specialty Diagnoses / Procedures Referred By Contac t Referred To Contact CARDIOVASCULAR MEDICINE Diagnoses Mixed hyperlipidemia Essential hypertension Procedures CARD PREV EXERCISE PRESCRIPTION OFFICE/OUTPATIENT NEW HIGH MDM 60 MINUTES Morelia Mills MD [address] [place] [id number] Phone: tel: fax: [facility] Cardiology [address] [place] [address] Phone: tel: Referral ID Status Reason Start Date Expiration Date Visits Requested Visits Authorized [id number] Pending Review PCP Requested Referral 06/02/2024 06/02/2025 1 1 Reason Comments Follow Up Reason Comments F/U 6 months Care Teams (unrecognized sec tion and content) [employer] 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 Specialty Start Date End Date Helder Egan MD [address] [place], [place] [id number] PCP - General Family Practice 06/21/20 [employer] 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 Specialty Start Date End Date Helder Egan MD [address] [place] [address] PCP - General Family Practice 06/21/20 Supervisor [employer] 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 Specialty Start Date End Date Helder Egan MD [address] [facility] [place] [address] PCP - General Family Practice 06/21/20 Supervisor [employer] 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 Specialty Start Date End Date Helder Egan MD [address] [facility] [place] [address] PCP - General Family Medicine 06/21/20 Supervisor [employer] 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 Specialty Start Date End Date Helder Egan MD [address] [facility] [place] [address] PCP - General Family Medicine 06/21/20 Supervisor [employer] 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 Specialty Start Date End Date Helder Egan MD [address] [facility] [place] [address] PCP - General Family Medicine 06/21/20 Supervisor [employer] 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 Specialty Start Date End Date Helder Egan MD [address] [facility] [place] [address] PCP - General Family Medicine 06/21/20 Supervisor [employer] 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 Specialty Start Date End Date Helder Egan MD [address] [facility] [place] [address] PCP - General Family Medicine 06/21/20 Supervisor [employer] 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 Specialty Start Date End Date Helder Egan MD [address] [facility] [place] [address] PCP - General Family Medicine 06/21/20 Supervisor [employer] 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 Specialty Start Date End Date Helder Egan MD [address] [facility] [place] [address] PCP - General Family Medicine 06/21/20 Supervisor [employer] 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 Specialty Start Date End Date Helder Egan MD [address] [facility] [place] [address] PCP - General Family Medicine 06/21/20 Supervisor [employer] 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 Specialty Start Date End Date Helder Egan MD [address] [facility] [place] [address] PCP - General Family Medicine 06/21/20 Supervisor [employer] 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 Specialty Start Date End Date Helder Egan MD [address] [facility] [place] [address] PCP - General Family Medicine 06/21/20 Supervisor [employer] 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 Specialty Start Date End Date Helder Egan MD [address] [facility] [place] [address] PCP - General Family Medicine 06/21/20 Supervisor [employer] 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 Specialty Start Date End Date Helder Egan MD [address] [facility] [place] [address] PCP - General Family Medicine 06/21/20 Team Status: Active Member Role Status Dates Dr. Adan Meza MD Family Provider Active Dr. Fernando RAHMAN MD Primary Care Provider A ctive Team Status: Inactive Member Role Status Dates Dr. Fernando RAHMAN MD Primary Care Provider A ctive Dr. Silver Witt DDS Attending Provider, [facility] Provider Active [employer] 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 Specialty Start Date End Date Helder Egan MD [address] [facility] [place] [address] PCP - General Family Medicine 06/21/20 Supervisor [employer] 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 Specialty Start Date End Date Helder Egan MD [address] [facility] [place] [address] PCP - General Family Medicine 06/21/20 Supervisor [employer] 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 Specialty Start Date End Date Helder Egan MD [address] [place] [address] PCP - General Family Medicine 06/21/20 Supervisor [employer] 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 Specialty Start Date End Date Helder Egan MD [address] [place] [address] PCP - General Family Medicine 06/21/20 Supervisor [employer] 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 Specialty Start Date End Date Helder Egan MD [address] [place] [address] PCP - General Family Medicine 06/21/20 Supervisor [employer] 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 Specialty Start Date End Date Helder Egan MD [address] [place] [address] PCP - General Family Medicine 06/21/20 Supervisor [employer] 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 Specialty Start Date End Date Helder Egan MD [address] [place] [address] PCP - General Family Medicine 06/21/20 Supervisor [employer] 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 Specialty Start Date End Date Helder Egan MD [address] [place] [address] PCP - General Family Medicine 06/21/20 Supervisor [employer] 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 Specialty Start Date End Date Helder Egan MD [address] [place] [address] PCP - General Family Medicine 06/21/20 Supervisor [employer] 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 Specialty [place] [address] [place], [place] [id number] PCP Resident Internal Medicine 01/06/23 Supervisor [employer] 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 Specialty [place] [address] [place] [address] Hematology/Oncology 01/22/23 Supervisor [employer] 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 Specialty [place] [address] [place] [address] Hematology/Oncology 01/22/23 Supervisor [employer] 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 Specialty Start Date End Date Helder Egan MD [address] [place] [address] PCP - General Family Medicine 06/21/20 01/04/23 Supervisor [employer] 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 Specialty Start Date End Date Helder Egan MD [address] [place] [address] PCP - General Family Medicine 06/21/20 01/04/23 Supervisor [employer] 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 Specialty Start Date End Date Helder Egan MD [address] [facility] [place] [address] PCP - General Family Medicine 06/21/20 01/04/23 Supervisor [employer] 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 Specialty Start Date End Date Helder Egan MD [address] [facility] [place] [address] PCP - General Family Medicine 06/21/20 01/04/23 Supervisor [employer] 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 Specialty Start Date End Date Helder Egan MD [address] [facility] [place] [address] PCP - General Family Medicine 06/21/20 01/04/23 Supervisor [employer] 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 Specialty Start Date End Date Kimberlee [place] [id number] [place], [place] [id number] Hematology/Oncology 01/22/23 Supervisor [employer] 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 Specialty Start Date End Date Kimberlee Lion MD [address] [place], [place] [id number] Hematology/Oncology 01/22/23 Supervisor [employer] 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 Specialty Start Date End Date Kimberlee Lion MD [id number] [place], [place] [id number] Hematology/Oncology 01/22/23 Supervisor [employer] 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 Specialty Start Date End Date Kimberlee Lion MD [address] [place], [place] [id number] Hematology/Oncology 01/22/23 Supervisor [employer] 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 Specialty Start Date End Date Kimberlee Lion [place] [id number] [place], [place] [id number] Hematology/Oncology 01/22/23 Supervisor [employer] 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 Specialty Start Date End Date Ross Sanders MD, PhD [address] [place] [id number] PCP - General Internal Medicine 03/27/23 [place] [address] [place] [address] Hematology/Oncology 01/22/23 Skyler Mirza DO [address] [place] [address] PCP Resident Internal Medicine 03/27/23 Supervisor [employer] 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 Specialty Start Date End Date Ross Sanders MD, PhD [address] [place] [address] PCP - General Internal Medicine 03/27/23 [place] [address] [place] [address] Hematology/Oncology 01/22/23 Skyler Mirza, [address] [place] [address] PCP Resident Internal Medicine 03/27/23 Supervisor [employer] 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 Specialty Start Date End Date Ross Sanders MD, PhD [address] [place] [address] PCP - General Internal Medicine 03/27/23 [place] [address] [place] [address] Hematology/Oncology 01/22/23 Skyler Mirza, [address] [place] [address] PCP Resident Internal Medicine 03/27/23 Supervisor [employer] 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 Specialty Start Date End Date Ross Sanders MD, PhD [address] [place] [address] PCP - General Internal Medicine 03/27/23 [place] [address] [place] [address] Hematology/Oncology 01/22/23 Skyler Mirza DO [address] [place] [address] PCP Resident Internal Medicine 03/27/23 Supervisor [employer] 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 Specialty Start Date End Date Ross Sanders MD, PhD [address] [place] [address] PCP - General Internal Medicine 03/27/23 [place] [address] [place] [address] Hematology/Oncology 01/22/23 Skyler Mirza DO [address] [place] [address] PCP Resident Internal Medicine 03/27/23 Supervisor [employer] 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 Specialty Start Date End Date Ross Sanders MD, PhD [address] [place] [address] PCP - General Internal Medicine 03/27/23 [place] [address] [place] [address] Hematology/Oncology 01/22/23 Skyler Mirza DO [address] [place] [address] PCP Resident Internal Medicine 03/27/23 Supervisor [employer] 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 Specialty Start Date End Date Ross Sanders MD, PhD [facility] [place] [address] PCP - General Internal Medicine 03/27/23 [place] [address] [place] [address] Hematology/Oncology 01/22/23 Skyler Mirza DO [address] [place] [address] PCP Resident Internal Medicine 03/27/23 Supervisor [employer] 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 Specialty Start Date End Date Ross Sanders MD, PhD [address] [place] [address] PCP - General Internal Medicine 03/27/23 Kimberlee Lion MD [address] [place], [place] [id number] Hematology/Oncology 01/22/23 Skyler Mirza DO [address] [place], [place] [id number] PCP Resident Internal Medicine 03/27/23 Supervisor [employer] 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 Specialty Start Date End Date Ross Sanders MD, PhD [address] [place], [place] [id number] PCP - General Internal Medicine 03/27/23 Kimberlee Lion MD [address] [place], [place] [address] Hematology/Oncology 01/22/23 Skyler Mirza DO [address] [place] [address] PCP Resident Internal Medicine 03/27/23 Supervisor [employer] 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 Specialty Start Date End Date Ross Sanders MD, PhD [address] [place] [address] PCP - General Internal Medicine 03/27/23 [place] [address] [place] [address] Hematology/Oncology 01/22/23 Skyler Mirza DO [address] [place] [address] PCP Resident Internal Medicine 03/27/23 Supervisor [employer] 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 Specialty Start Date End Date Ross Sanders MD, PhD [address] [place] [address] PCP - General Internal Medicine 03/27/23 [place] [address] [place] [address] Hematology/Oncology 01/22/23 Bill Eugene MD [address] [place] [address] PCP Resident Internal Medicine 09/20/23 Supervisor [employer] 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 Specialty Start Date End Date Ross Sanders MD, PhD [address] [place] [address] PCP - General Internal Medicine 03/27/23 [place] [address] [place] [address] Hematology/Oncology 01/22/23 Bill Eugene MD [address] [place] [address] PCP Resident Internal Medicine 09/20/23 Supervisor [employer] 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 Specialty Start Date End Date Ross Sanders MD, PhD [address] [place] [address] PCP - General Internal Medicine 03/27/23 [place] [address] [place] [address] Hematology/Oncology 01/22/23 Bill Eugene MD [address] [place] [address] PCP Resident Internal Medicine 09/20/23 Supervisor [employer] 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 Specialty Start Date End Date Ross Sanders MD, PhD [address] [place] [address] PCP - General Internal Medicine 03/27/23 [place] [address] [place] [address] Hematology/Oncology 01/22/23 Bill Eugene MD [address] [place] [address] PCP Resident Internal Medicine 09/20/23 Supervisor [employer] 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 Specialty Start Date End Date Ross Sanders MD, PhD [address] [place] [address] PCP - General Internal Medicine 03/27/23 [place] [address] [place] [address] Hematology/Oncology 01/22/23 Bill Eugene MD [address] [place] [address] PCP Resident Internal Medicine 09/20/23 Supervisor [employer] 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 Specialty Start Date End Date Ross Sanders MD, PhD [address] [place] [address] PCP - General Internal Medicine 03/27/23 [place] [address] [place] [address] Hematology/Oncology 01/22/23 Bill Eugene MD [address] [place] [address] PCP Resident Internal Medicine 09/20/23 Supervisor [employer] 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 Specialty Start Date End Date Ross Sanders MD, PhD [facility] [place] [address] PCP - General Internal Medicine 03/27/23 [place] [address] [place] [address] Hematology/Oncology 01/22/23 Bill Eugene MD [address] [place] [address] PCP Resident Internal Medicine 09/20/23 Supervisor [employer] 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 Specialty Start Date End Date Ross Sanders MD, PhD [address] [place] [address] PCP - General Internal Medicine 03/27/23 [place] [address] [place] [address] Hematology/Oncology 01/22/23 Bill Eugene MD [address] [place] [address] PCP Resident Internal Medicine 09/20/23 Supervisor [employer] 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 Specialty Start Date End Date Ross Sanders MD, PhD [address] [place] [address] PCP - General Internal Medicine 03/27/23 [place] [address] [place] [address] Hematology/Oncology 01/22/23 Bill Eugene MD [address] [place] [address] PCP Resident Internal Medicine 09/20/23 Supervisor [employer] 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 Specialty Start Date End Date Ross Sanders MD, PhD [address] [facility] [place] [address] PCP - General Internal Medicine 03/27/23 [place] [address] [place] [address] Hematology/Oncology 01/22/23 Bill Eugene MD [address] [place] [place] [address] PCP Resident Internal Medicine 09/20/23 Supervisor [employer] 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 Specialty Start Date End Date Ross Sanders MD, PhD [address] [place] [place] [address] PCP - General Internal Medicine 03/27/23 [place] [address] [place] [address] Hematology/Oncology 01/22/23 Bill Eugene MD [address] [place] [address] PCP Resident Internal Medicine 09/20/23 Supervisor [employer] 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 Specialty Start Date End Date Ross Sanders MD, PhD [address] [place] [address] PCP - General Internal Medicine 03/27/23 [place] [address] [place] [address] Hematology/Oncology 01/22/23 Bill Eugene MD [address] [place] [place] [address] PCP Resident Internal Medicine 09/20/23 Supervisor [employer] 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 Specialty Start Date End Date Ross Sanders MD, PhD [address] [facility] [place] [place] [address] PCP - General Internal Medicine 03/27/23 [place] [address] [place] [address] Hematology/Oncology 01/22/23 Bill Eugene MD [address] [place] [place] [address] PCP Resident Internal Medicine 09/20/23 Supervisor [employer] 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 Specialty Start Date End Date Ross Sanders MD, PhD [address] [facility] [place] [address] PCP - General Internal Medicine 03/27/23 [place] [address] [place] [address] Hematology/Oncology 01/22/23 Bill Eugene MD [address] [place] [place] [address] PCP Resident Internal Medicine 09/20/23 Supervisor [employer] 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 Specialty Start Date End Date Ross Sanders MD, PhD [address] [facility] [place] [address] PCP - General Internal Medicine 03/27/23 [place] [address] [place] [address] Hematology/Oncology 01/22/23 Bill Eugene MD [address] [facility] [place] [place] [address] PCP Resident Internal Medicine 09/20/23 Supervisor [employer] 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 Specialty Start Date End Date Ross Sanders MD, PhD [address] [place] [address] PCP - General Internal Medicine 03/27/23 [place] [address] [place] [address] Hematology/Oncology 01/22/23 Bill Eugene MD [address] [place] [address] PCP Resident Internal Medicine 09/20/23 Supervisor [employer] 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 Specialty Start Date End Date Ross Sanders MD, PhD [address] [place] [address] PCP - General Internal Medicine 03/27/23 [place] [address] [place] [address] Hematology/Oncology 01/22/23 Bill Eugene MD [address] [place] [address] PCP Resident Internal Medicine 09/20/23 Supervisor [employer] 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 Specialty Start Date End Date Ross Sanders MD, PhD [address] [place] [address] PCP - General Internal Medicine 03/27/23 [place] [address] [place] [address] Hematology/Oncology 01/22/23 Bill Eugene MD [address] [place] [address] PCP Resident Internal Medicine 09/20/23 Supervisor [employer] 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 Specialty Start Date End Date Ross Sanders MD, PhD [address] [place] [address] PCP - General Internal Medicine 03/27/23 [place] [address] [place] [address] Hematology/Oncology 01/22/23 Bill Eugene MD [address] [place] [address] PCP Resident Internal Medicine 09/20/23 Supervisor [employer] 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 Specialty Start Date End Date Ross Sanders MD, PhD [address] [place] [address] PCP - General Internal Medicine 03/27/23 [place] [address] [place] [address] Hematology/Oncology 01/22/23 Bill Eugene MD [address] [place] [address] PCP Resident Internal Medicine 09/20/23 Supervisor [employer] 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 Specialty Start Date End Date Ross Sanders MD, PhD [address] [place] [address] PCP - General Internal Medicine 03/27/23 [place] [address] [facility] [place] [address] Hematology/Oncology 01/22/23 Bill Eugene MD [address] [place] [address] PCP Resident Internal Medicine 09/20/23 Supervisor [employer] 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 Specialty Start Date End Date Ross Sanders MD, PhD [address] [place] [address] PCP - General Internal Medicine 03/27/23 [place] [address] [place] [address] Hematology/Oncology 01/22/23 Bill Eugene MD [address] [place] [address] PCP Resident Internal Medicine 09/20/23 Supervisor [employer] 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 Specialty Start Date End Date Ross Sanders MD, PhD [address] [place] [address] PCP - General Internal Medicine 03/27/23 [place] [address] [place] [address] Hematology/Oncology 01/22/23 Bill Eugene MD [address] [place] [address] PCP Resident Internal Medicine 09/20/23 Supervisor [employer] 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 Specialty Start Date End Date Ross Sanders MD, PhD [address] [place] [address] PCP - General Internal Medicine 03/27/23 [place] [address] [place], [place] [address] Hematology/Oncology 01/22/23 Bill Eugene MD [address] [place] [address] PCP Resident Internal Medicine 09/20/23 Goals (unrecognized section and content) Goals may be documented in a n alternate sectionGoals may be documented in an alternate section INFORMATION SOURCE (unrecogn ized section and content) DATE CREATED AUTHOR 01/07/2023 [facility] DATE CREATED AUTHOR AUTHOR'S ORGANIZ ATION 02/13/2024 [facility] DATE CREATED AUTHOR AUTHOR'S ORGANIZ ATION 10/13/2024 [facility] DATE CREATED AUTHOR AUTHOR'S ORGANIZ ATION 11/19/2024 [facility] FOR RECORDS PERTAINING TO PATIENTS WHO ARE OR HAVE BEEN ENROLLED IN A CHEMICAL DEPENDENCY/SUBSTANCEABUSE PROGRAM, SOME INFORMATION MAY BE OMITTED. This clinical summary was aggregated from multiple sources. Caution should be exercised in using it in the provision of clinical care. This summary normalizes information from multiple sources, and as a consequence, information in this document may materially change the coding, format and clinical context of patient data. In addition, data may be omitted in some cases. CLINICAL DECISIONS SHOULD BE BASED ON THE PRIMARY CLINICAL RECORDS. [facility]. provides no warranty or guarantee of the accuracy or completeness of information in this document.
== END | disposition home or self-care (01) ==
LOC: CT 06:18
PROVIDERS: PCP Family Medicine; Referring Provider Internal Medicine Gastroenterology; Visit Provider Internal Medicine Gastroenterology
DX: R10.32 Left lower quadrant pain (principal); K57.92 Diverticulitis of intestine, part unspecified, without perforation or abscess without bleeding
CPT/HCPCS: 74177; Q9967